=== PATIENT | female | born 1965 | race Caucasian/White ===

== ENCOUNTER 2022-11-18 07:02 | Outpatient (OUT) | payer OTHER, SELFPAY ==
[2022-11-19 04:12] LABS: Triiodothyronine (T3) 134 ng/dL (71-180)
== END 2022-11-18 07:03 ==
LOC: LAB 07:06
PROVIDERS: PCP Nurse Practitioner
DX: C73 Malignant neoplasm of thyroid gland (principal)
CPT/HCPCS: 36415; 84436; 84443; 84480

== ENCOUNTER 2023-02-24 16:16 | Outpatient (OUT) | payer OTHER, SELFPAY ==
[2023-02-24 17:31] LABS: Creatinine Urine Random 343.27 mg/dL (20.00-300.00); Microalbum Creatinine Ratio Ur 18.3 mg/g (0.0-29.9); Microalbumin Urine Random 6.3 mg/dL (<=30.0)
[2023-02-24 17:34] LABS: Albumin Level 3.4 g/dL (3.4-5.0); Anion Gap 10.6; BUN Creatinine Ratio 14.6; Calcium 9.5 mg/dL (8.5-10.1); Carbon Dioxide 30.6 mmol/L (21.0-32.0); Chloride 98 mmol/L (98-107); Chol HDL Ratio 2.5; Cholesterol 179 mg/dL (<=200); Estimated GFR (African America >60 (>=60); Estimated GFR (Non-African Ame >60 (>=60); Glucose 291 mg/dL (74-106); HDL Cholesterol 71 mg/dL (40-60); Phosphorus 4.4 mg/dL (2.6-4.7); Potassium 4.2 mmol/L (3.5-5.1); Sodium 135 mmol/L (136-145); Triglycerides 112 mg/dL (<=150); VLDL CHOLESTEROL 22.4 mg/dL
[2023-02-26 16:13] LABS: C-Peptide, Serum 3.4 ng/mL (1.1-4.4)
== END 2023-02-24 16:17 | disposition home or self-care (01) ==
LOC: LAB 16:19
PROVIDERS: PCP Nurse Practitioner; Visit Provider Internal Medicine
DX: E11.65 Type 2 diabetes mellitus 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 (principal); Z79.4 Long term (current) use of insulin; E55.9 Vitamin D deficiency, unspecified; E78.2 Mixed hyperlipidemia
CPT/HCPCS: 36415; 80061; 80069; 82043; 82306; 82570; 84681

== ENCOUNTER 2023-03-23 16:59 | Outpatient (OUT) | payer OTHER, SELFPAY ==
[2023-03-23 17:43] LABS: Thyroid Stimulating Hormone 3.332 uIU/mL (0.358-3.740)
== END 2023-03-23 17:00 | disposition home or self-care (01) ==
LOC: LAB 17:00
PROVIDERS: PCP Nurse Practitioner; Visit Provider Radiology Radiation Oncology
DX: C73 Malignant neoplasm of thyroid gland (principal)
CPT/HCPCS: 36415; 84436; 84443

== ENCOUNTER 2023-04-29 14:13 | Outpatient (OUT) | payer OTHER, SELFPAY ==
--- NOTE | 2023-04-29 14:15 | MM_ITS ---
Patient Name: DEMETRA HUTCHINS MR#: [id number] : 1965 Exam Date: 04/29/2023 Ordering Doctor: TARIK Colbert CNP RADIOLOGY REPORT PROCEDURE: MM TOMOSYNTHESIS SCREENING BI COMPARISON: MG MAMM SCREEN 3D FRANCI CAD, 04/27/2022. MG MAMM SCREEN 3D FRANCI CAD, 11/28/2020. MG MAMM SCREEN FRANCI W CAD, 10/25/2019. MG MAMM FRANCI DIAG W CAD DIG, 03/15/2013. INDICATIONS: Screening Calculator Name NCI Breast Cancer Risk Assessment Tool 5 Year Breast Cancer Risk 1.50% Lifetime Breast Cancer Risk 9.70% Personal Breast Cancer No Personal Ovarian Cancer No Treatments None Family Cancers Grandmother-paternal with breast cancer at age ~50; Mother with uterine cancer at age 26. LOCATION: [facility] BREAST COMPOSITION: Scattered areas fibroglandular density. FINDINGS: DIAGNOSTIC CATEGORY 2--BENIGN FINDING: RIGHT BREAST: No significant suspicious finding. No significant change has occurred. LEFT BREAST: No significant suspicious finding. Chronic, stable benign-appearing lymph node within posterior upper-outer quadrant. No significant change has occurred. RECOMMENDATIONS: ROUTINE MAMMOGRAM AND CLINICAL EVALUATION IN 12 MONTHS. PLEASE NOTE: A NORMAL MAMMOGRAM DOES NOT EXCLUDE THE POSSIBILITY OF BREAST CANCER. A CLINICALLY SUSPICIOUS PALPABLE LUMP SHOULD BE BIOPSIED. Dictated by: Matias Edwarsd M.D. on 05/04/2023 at 12:05 Approved by: Matias Edwards M.D. on 05/04/2023 at 12:55
== END 2023-04-29 14:14 | disposition home or self-care (01) ==
LOC: MAMMO 14:13
PROVIDERS: PCP Nurse Practitioner; Visit Provider Nurse Practitioner
DX: Z12.31 Encounter for screening mammogram for malignant neoplasm of breast (principal); Z80.3 Family history of malignant neoplasm of breast; Z80.8 Family history of malignant neoplasm of other organs or systems; Z80.9 Family history of malignant neoplasm, unspecified
CPT/HCPCS: 77063; 77067

== ENCOUNTER 2023-07-28 16:49 | Outpatient (OUT) | payer OTHER, SELFPAY ==
--- OUTSIDE RECORDS SUMMARY | 2023-07-28 16:56 | XMS_ITS | CCD ---
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 Name Role Phone Katalina Colbert Primary Care Provider [phone] Aicchey MONTANEZ, Katalina Jo Primary Care Provider Zion Nugent MD Unavailable Aicholgerson MONTANEZ, Katalina Jo Primary Care Provider Zion Nugent MD Unavailable Aichholz DIGITAL DIRECTOR, Katalina Jo Primary Care Provider Aicholgerson MONTANEZ, Katalina Jo Primary Care Provider Zion Nugent MD Unavailable [phone] DR WILLY NUGENT Consulting Unavailable AICHHOLZ, DIGITAL DIRECTOR KATALINA Primary Care Unavailable DR WILLY NUGENT Attending Unavailable DR WILLY NUGENT Admitting Unavailable KAYLA YAN Consulting Unavailable HELEN, DR GEN Donovan Attending Unavailabl e DR GEN CERVANTES Admitting Unavailabl e AICHHOLZ, DIGITAL DIRECTOR KATALINA Primary Care Unavailable Deonna Espino Consulting Unavailable YULIYA NICHOLS Consulting Unavailable AICHHOLZ, DIGITAL DIRECTOR KATALINA Consulting Unavailable AICHHOLZ, DIGITAL DIRECTOR KATALINA Primary Care Unavailable AICHHOLZ, DIGITAL DIRECTOR KATALINA Attending Unavailable AICHHOLZ, DIGITAL DIRECTOR KATALINA Admitting Unavailable AICHHOLZ, DIGITAL DIRECTOR KATALINA Consulting Unavailable AICHHOLZ, DIGITAL DIRECTOR KATALINA Primary Care Unavailable AICHHOLZ, DIGITAL DIRECTOR KATALINA Attending Unavailable AICHHOLZ, DIGITAL DIRECTOR KATALINA Admitting Unavailable AICHHOLZ, DIGITAL DIRECTOR KATALINA Consulting Unavailable AICHHOLZ, DIGITAL DIRECTOR KATALINA Primary Care Unavailable AICHHOLZ, DIGITAL DIRECTOR KATALINA Attending Unavailable AICHHOLZ, DIGITAL DIRECTOR KATALINA Admitting Unavailable DR MATIAS EDWARDS Consulting Unavailable ENGELER, DR WILLY Marlow Consulting Unavailable AICHHOLZ, DIGITAL DIRECTOR KATALINA Primary Care Unavailable PINO, DR WILLY Marlow Attending Unavailable ENGELEAnahi, DR WILLY Marlow Admitting Unavailable AICHHOLZ, DIGITAL DIRECTOR KATALINA Consulting Unavailable AICHHOLZ, DIGITAL DIRECTOR KATALINA Attending Unavailable AICHHOLZ, DIGITAL DIRECTOR KATALINA Admitting Unavailable ENGELEAnahi, DR WILLY Marlow Consulting Unavailable AICHHOLZ, DIGITAL DIRECTOR KATALINA Primary Care Unavailable ENGELEAnahi, DR WILLY Marlow Attending Unavailable ENGELER, DR WILLY Marlow Admitting Unavailable AICHHOLZ, DIGITAL DIRECTOR KATALINA Consulting Unavailable AICHHOLZ, DIGITAL DIRECTOR KATALINA Primary Care Unavailable AICHHOLZ, DIGITAL DIRECTOR KATALINA Attending Unavailable AICHHOLZ, DIGITAL DIRECTOR KATALINA Admitting Unavailable AICHHOLZ, DIGITAL DIRECTOR KATALINA Consulting Unavailable AICHHOLZ, DIGITAL DIRECTOR KATALINA Primary Care Unavailable AICHHOLZ, DIGITAL DIRECTOR KATALINA Attending Unavailable AICHHOLZ, DIGITAL DIRECTOR KATALINA Admitting Unavailable ENGELER, G AKUA Referring Unavailable ENGELER, G AKUA Attending Unavailable AICHHOLZ, KATALINA NHAN Primary Care Unavailable ENGELER, G AKUA Attending Unavailable AICHHOLZ, KATALINA NHAN Primary Care Unavailable ENGELER, G AKUA Attending Unavailable AICHHOLZ, KATALINA NHAN Primary Care Unavailable ENGELER, G AKUA Referring Unavailable ENGELER, G AKUA Attending Unavailable AICHHOLZ, KATALINA NHAN Primary Care Unavailable ENGELER, G AKUA Referring Unavailable ENGELER, G AKUA Attending Unavailable AICHHOLZ, KATALINA NHAN Primary Care Unavailable AICHHOLZ, KATALINA Attending Unavailable Aichholz SWITCH OPERATOR, Katalina Unavailable Kervin Stevens MD Primary Care Provider [phone] Allergies Allergy Classification Reported Allergen(s) Allergy Type Date of Onset Reaction(s) Facility (20 sources) Adhesive agent; Translations: [ADHESIVE] Drug Allergy 05-11-2012 Rash [facility] (1 source) Desonide Drug Allergy [facility] (1 source) Latex Drug allergy (disorder) [facility] Medications Current Medications Medication Drug Class(es) Dates Sig (Normalized) Sig (Original) amoxicillin 875 mg / clavulanate 125 mg oral tablet (1 source) Penicillin-class Antibacterial Start: 07-07-2023 End: 07-17-2023 take 1 tablet by mouth in the morning amoxicillin-clav ulanate (Augmentin) 875-125 MG tablet Indications: Acute non-recurrent sinusitis of other sinus Take 1 tablet (875 mg) by mouth in the morning and 1 tablet (875 mg) before bedtime. Do all this for 10 days. Take with food. 20 tablet 0 07/07/2023 07/17/2023 Active aspirin 81 mg delayed release oral tablet (20 sources) Platelet Aggregation Inhibitor, Nonsteroidal Anti-inflammatory Drug take 1 tablet by mouth in the morning aspirin (ASPIR) 81 MG EC tablet Take 1 tablet by mouth in the morning. 0 Active take 1 tablet by mouth once nano y aspirin (BABY ASPIRIN) 81 mg chewable tablet Take 81 mg by mouth once daily. 0 Active Comment on above: Take 81 mg by mouth once daily. cetirizine hydrochloride 10 mg oral tablet (20 sources) Histamine-1 Receptor Antagonist Start: 4 End: 4 take 1 tablet by mouth in the morning cetirizine (ZyrTEC) 10 MG tablet Indications: Allergic rhinitis, unspecified seasonality, unspecified trigger Take 1 tablet (10 mg) by mouth in the morning. 90 tablet 1 07/04/2023 10/02/2023 Active take 1 tablet by mouth once nano y cetirizine (ALLER-MELIZA) 10 mg tablet Take 10 mg by mouth once daily. 0 Active Comment on above: Take 10 mg by mouth once daily. cholecalciferol 0.025 mg oral capsule (20 sources) Vitamin D take 1 capsule by mouth in the morning cholecalciferol (Vitamin D-3) 25 MCG (1000 UT) capsule Take 1 capsule by mouth in the morning. 0 Active take 1 tablet by mouth once nano y Cholecalciferol, Vitamin D3, (VITAMIN D) 1,000 unit Tab Take 1,000 Units by mouth once daily. 0 Active Comment on above: Take 1,000 Units by mouth once daily. DULoxetine 60 mg delayed release oral capsule (20 sources) Serotonin and Norepinephrine Reuptake Inhibitor Start: 3 take 1 capsule by mouth in the morning DULoxetine (Cymbalta) [address] capsule Take 1 capsule by mouth in the morning. 0 05/03/2023 Active Start: 09-13-2020 DULoxetine (CY MBALTA) 30 mg capsule take [address] [facility] once daily DULoxetine 60 mg capsule Take 60 mg by mouth once daily. 0 Active Comment on above: Take 60 mg by mouth once daily. fluticasone propionate 0.05 mg/actuat metered dose nasal spray (1 source) Corticosteroid Start : 07-30 take 2 spray(s) nasal route in the morning fluticasone (Flonase) 50 MCG/ACT nasal spray Administer 2 sprays into each nostril in the morning. 0 07/30/2022 Active hydroCHLOROthiazide 12.5 mg oral capsule (20 sources) Thiazide Diuretic Start : 06-12 End: 09-09 take 1 capsule by mouth in the morning hydroCHLOROthiazide (Microzide) 12.5 MG capsule Indications: Essential hypertension (CMS/HCC) , Bilateral lower extremity edema Take 1 capsule (12.5 mg) by mouth in the morning. 90 capsule 1 06/12/2023 09/10/2023 Active hydroCHLOROthiaz mando (HYDRODIURIL, ESIDRIX) 12.5 mg tablet q 24 HR. 0 Active take 1 tablet by mouth once nano y hydrochlorothiazide 12.5 mg tablet Take 12.5 mg by mouth once daily. 0 Active Comment on above: Take 12.5 mg by mout h once daily. q 24 HR. ibuprofen 800 mg oral tablet (16 sources) Nonsteroidal Anti-inflammatory Drug take 1 tablet by mouth twice daily as needed ibuprofen 800 MG tablet Take 1 tablet by mouth 2 (two) times a day as needed 0 Active take 1 tablet by lukas every six hours as needed ibuprofen (MOTRIN) 200 mg tablet Take 20 0 mg by mouth every 6 hours as needed. 0 Active Comment on above: Take 200 mg by mouth every 6 hours as needed. 3 ml insulin lispro 100 unt/ml pen injector (1 source) Insulin Analog Start: insulin lispro (HumaLOG) 100 UNIT/ML injection Inject 1 Units under the skin in the morning and 1 Units at noon and 1 Units in the evening. Inject with meals. INJECT 15-20-25 UNITS ACCORDING TO MEAL SIZE PLUS ISS #3 (MAX DAILY DOSE OF 100 UNITS) . 0 04/03/2023 Active levothyroxine sodium 0.2 mg oral tablet (20 sources) l-Thyroxine Start: 3 End: take 1 tablet by mouth before mealtime levothyroxine (Synthroid, Levoxyl) 200 MCG tablet Take 1 tablet by mouth in the morning. Take before meals. 0 05/04/2023 Active Start: 07-01-2021 End: 11-23-2022 take 1 tablet by mouth once daily before breakfast levothyroxine (SYNTHROID) 175 mcg tablet Take 1 tablet by mouth daily before breakfast. 30 tablet 4 06/10/2022 11/23/2022 Discontinued (Course of therapy completed) Start: 04-09-2021 End: 10-16-2021 take 1 tablet by mouth once daily levothyroxine (SYNTHROID) 150 mcg tablet Take 1 tablet by mouth once daily. 30 tablet 4 04/09/2021 10/16/2021 Discontinued Comment on above: Take 1 tablet by lukas th daily before breakfast. Take 1 tablet by lukas th once daily. losartan potassium 100 mg oral tablet (16 sources) Angiotensin 2 Receptor Janell Start: 04-11-2023 take 1 tablet by mouth in the morning losartan (Cozaar) 100 MG tablet Take 1 tablet by mouth in the morning. 0 04/11/2023 Active Start: 05-01-2018 losartan (COZA AR) 50 mg tablet q 24 HR. 0 05/01/2018 Active Comment on above: q 24 HR. metFORMIN hydrochloride 1000 mg oral tablet (16 sources) Biguanide Start: 06-12-2023 End: 09-10-2023 take 1 tablet by mouth in the morning metFORMIN (Glucophage) 1000 MG tablet Indications: Uncontrolled type 2 diabetes mellitus 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, with long-term current use of insulin ([facility]) Take 1 tablet (1,000 mg) by mouth in the morning and 1 tablet (1,000 mg) before bedtime. 180 tablet 1 06/12/2023 09/10/2023 Active Start: 05-01-2018 take 1 tablet by lukas th twice daily metFORMIN (GLUCOPHAGE) 1,000 mg tablet metformin 1,000 mg tablet Take 1 tablet twice a day by oral route for 90 days. 0 05/01/2018 Active Comment on above: metformin 1,000 mg t ablet Take 1 tablet twice a day by oral route for 90 days. Mounjaro 5 MG/0.5ML solution pen-injector (1 source) Start: 05-04-2023 Mounjaro 5 MG/0.5ML solution pen-injector Inject 1 Syringe under the skin 1 (one) time per week 0 05/04/2023 Active tiZANidine 4 mg oral tablet (16 sources) Central alpha-2 Adrenergic Agonist Start: 05-06-2023 End: 08-04-2023 tiZANidine (Zanaflex) 4 MG tablet Indications: Chronic pain syndrome Take 1 tablet (4 mg) by mouth as needed at bedtime for muscle spasms. 90 tablet 1 05/06/2023 08/04/2023 Active Start: 09-14-2020 tiZANidine (ZA NAFLEX) 4 mg tablet Completed/Discontinued Medications Medication Drug Class(es) Dates Sig (Normalized) Sig (Original) acetaminophen 325 mg / HYDROcodone bitartrate 5 mg oral tablet (7 sources) Opioid Agonist Start: 12-12-2012 take 1 tablet by mouth every eight hours as needed HYDROcodone-acetam inophen 5-325 mg per tablet Take 1 tablet by mouth every 8 hours as needed for Pain. 40 tablet 0 12/12/2012 Active Comment on above: [facility] hours as needed for Pain. Doxycycline (7 sources) Tetracycline-cla ss Drug take 500 mg by mouth once daily DOXYCYCLINE HYCLATE ORAL Take 500 mg by mouth once daily. 0 Active Comment on above: Take 500 mg by mouth once daily. Ethinyl Estradiol / norgestimate (7 sources) Progestin, Estrogen Norgestimate-Ethin yl Estradiol (TRI-SPRINTEC) 0.18/0.215/0.25 mg-35 mcg (28) Tab Take by mouth. 0 Active Comment on above: Take by mouth. furosemide 20 mg oral tablet (7 sources) Loop Diuretic Start: 05-11-2012 take 3 tablets by mouth once daily furosemide (LASIX) 20 mg tablet Take 3 tablets by mouth once daily. 0 05/11/2012 Active Comment on above: Take [address] [facility] once daily. GLUCOSAMINE/CHONDROI TIN SULF A (GLUCOSAMINE-CHONDRO ITIN ORAL) (7 sources) GLUCOSAMINE/BRIDGER DR OITIN SULF A (GLUCOSAMINE-CHOND ROITIN ORAL) Take by mouth. 0 Active Comment on above: Take by mouth. 3 ml insulin glargine 100 unt/ml pen injector (16 sources) Insulin Analog Start: 05-01-2018 insulin glargine (LANTUS SOLOSTAR U-100 INSULIN) 100 unit/mL (3 mL) Lantus Solostar U-100 Insulin 100 unit/mL (3 mL) subcutaneous pen 0 05/01/2018 Active inject 1 [IU] by sub cutaneous injection in the morning Lantus SoloStar 100 UNIT/ML pen Inject 1 Units under the skin in the morning and 1 Units before bedtime. Inject 35 Units subcutaneous in AM and 50 Units in PM. 0 Active Comment on above: Lantus Solostar U-10 0 Insulin 100 unit/mL (3 mL) subcutaneous pen metFORMIN hydrochloride 1000 mg / SITagliptin 50 mg oral tablet (7 sources) Biguanide, Dipeptidyl Peptidase 4 Inhibitor Start: 05-11-20 12 take 1 tablet by mouth twice daily at mealtime sitaGLIPtin-metFORMI N (PATRICIAUMET) 50-1,000 mg per tablet Take 1 tablet by mouth twice daily with meals. 0 05/11/2012 Active Comment on above: Take 1 tablet by lukas th twice daily with meals. multivitamin tablet (20 sources) take 1 tablet by mouth once daily multivitamin tablet Take 1 tablet by mouth once daily. 0 Active Comment on above: Take 1 tablet by lukas th once daily. olmesartan medoxomil 20 mg oral tablet (7 sources) Angiotensin 2 Receptor Janell Start: 05-11-20 12 take 1 tablet by mouth once daily olmesartan (BENICAR) 20 mg tablet Take 1 tablet by mouth once daily. 0 05/11/2012 Active Comment on above: Take 1 tablet by lukas th once daily. Xcdpt-5-NDM-EPA-Fish Oil 1,200 (144-216) mg cap (7 sources) Ykuyl-0-FYD-EPA- Fish Oil 1,200 (144-216) mg cap Take by mouth. 0 Active Comment on above: Take by mouth. pilocarpine hydrochloride 5 mg oral tablet (3 sources) Cholinergic Receptor Agonist Start: 06-04-20 End: 02-13-20 22 take 1 tablet by mouth three times daily pilocarpine (SALAGEN) 5 mg tablet Indications: Thyroid cancer (HCC) , Malignant neoplasm of thyroid gland (HCC) Take 1 tablet by mouth three times daily. 15 tablet 0 06/04/2020 02/12/2022 Discontinued Comment on above: Take 1 tablet by lukas th three times daily. simvastatin 5 mg oral tablet (16 sources) HMG-CoA Reductase Inhibitor Start: 05-01-20 18 simvastatin (ZOCOR) 5 mg tablet q 24 HR. 0 05/01/2018 Active Comment on above: q 24 HR. Problems Active Problems Problem Classification Problem Date Documented Da te Episodic/Chronic Anxiety disorders (1 source) Mixed anxiety and depressive disorder; Translations: [Anxiety disorder, unspecified] Onset: 06-09-2023 06-09-2023 Chronic Cancer of thyroid (20 sources) Malignant tumor of thyroid gland; Translations: [Malignant neoplasm of thyroid gland] Onset: 06-04-2020 Chronic Cancer of thyroid (2 sources) History of malignant neoplasm of thyroid; Translations: [Personal history of malignant neoplasm of thyroid] Onset: 03-24-2023 03-24-2023 Episodic Cancer; other and unspecified primary (1 source) Malignant tumor of thymus; Translations: [Malignant neoplasm of thymus] Chronic Diabetes mellitus with complications (5 sources) Type 2 diabetes mellitus 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; Translations: [Insulin treated type 2 diabetes mellitus] Onset: 01-29-2022 Chronic Diabetes mellitus without complication (5 sources) Type 2 diabetes mellitus without complications; Translations: [TYPE 2 DM WITHOUT COMPLICATIONS] Onset: 06-22-2022 Chronic Essential hypertension (1 source) Essential hypertension; Translations: [Essential (primary) hypertension] Onset: 06-09-2023 06-09-2023 Chronic Other nutritional; endocrine; and metabolic disorders (4 sources) Hypercalcemia; Translations: [HYPERCALCEMIA] Onset: 02-18-2022 Chronic Other nutritional; endocrine; and metabolic disorders (1 source) Body mass index 40+ - severely obese; Translations: [Body mass index (BMI) 45.0-49.9, adult] Onset: 06-09-2023 06-09-2023 Chronic Other upper respiratory disease (1 source) Allergic rhinitis; Translations: [Allergic rhinitis, unspecified] Onset: 07-04-2023 07-04-2023 Chronic Other upper respiratory infections (6 sources) Acute pharyngitis, unspecified; Translations: [Streptococcal pharyngitis] Onset: 06-20-2022 Episodic Residual codes; unclassified (1 source) Bilateral lower limb edema; Translations: [Localized edema] Onset: 06-12-2023 06-12-2023 Episodic Substance-related disorders (1 source) Nicotine dependence, cigarettes, uncomplicated; Translations: [NICOTINE DEPEND CIGARETTES UNCOMP] Onset: 06-22-2022 Chronic Unclassified (3 sources) CONTACT W/AND (SUSP) EXPOS COVID-19; Translations: [CONTACT W/AND (SUSP) EXPOS COVID-19] Onset: 02-04-2022 Past or Other Problems Problem Classification Problem Date Documented Da te Episodic/Chronic Other aftercare (1 source) [employer] (current) use of aspirin; Translations: [DETENTION CURRENT USE OF ASPIRIN] Onset: 06-22-2022 Episodic Other aftercare (1 source) 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; Translations: [OTH EDGER MACHINE HELPER CURRENT DRUG THERAPY] Onset: 06-22-2022 Episodic Other aftercare (1 source) [employer] (current) use of oral hypoglycemic drugs; Translations: [DETENTION USE ORAL HYPOGLYCEMIC DX] Onset: 06-22-2022 Episodic Other aftercare (1 source) 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; Translations: [EDGER MACHINE HELPER CURRENT USE OF INSULIN] Onset: 06-01-2022 Episodic Other connective tissue disease (20 sources) Biceps tendinitis; Translations: [Bicipital tendinitis, unspecified shoulder] Onset: 11-23-2012 11-23-2012 Episodic Other screening for suspected conditions (not mental disorders or infectious disease) (4 sources) Encounter for screening mammogram for malignant neoplasm of breast; Translations: [ENC SCR MAMMO MALIG NEOPLASM BREAST] Onset: 04-27-2022 Episodic Residual codes; unclassified (1 source) Acquired absence of other specified parts of digestive tract; Translations: [ACQ ABSENCE OTH PART DIGESTV TRACT] Onset: 06-22-2022 Episodic Residual codes; unclassified (1 source) Family history of malignant neoplasm of breast; Translations: [FAMILY HX MALIG NEOPLASM OF BREAST] Onset: 05-01-2022 Episodic Residual codes; unclassified (1 source) Family history of malignant neoplasm of other organs or systems; Translations: [FAM HX MALIG NEOPLASM OTH ORGN/SYS] Onset: 05-01-2022 Episodic Spondylosis; intervertebral disc disorders; other back problems (20 sources) Neck pain; Translations: [Cervicalgia] Onset: 08-07-2012 08-07-2012 Episodic Sprains and strains (20 sources) Sprain of shoulder rotator cuff; Translations: [Sprain of unspecified rotator cuff capsule, initial encounter] Onset: 08-07-2012 08-07-2012 Episodic Unclassified (1 source) CONTACT W/AND (SUSP) EXPOS COVID-19; Translations: [CONTACT W/AND (SUSP) EXPOS COVID-19] Onset: 02-03-2022 Results Test Name Value Interpretation Reference Range Facility [facility] 03-24-2023 CNPN Telephone (NCCAP) KATALINA HUTCHINS ([id number]) 1965 F Date Time Provider Department 03/24/23 Zion NUGENT During your visit today, we recorded the following information about you: Amanda Hammonds 03/24/2023 3:26 PM Signed Mailed patient her lab tests she gets elsewere and scheudled appt for her Zion Nugent MD [facility] Nurse [place]; Amanda Hammonds See patient back or televisit 4 months with labs Allergies As of Date: 03/24/2023 Noted Allergy Reaction ADHESIVE 05/11/2012 2 - Rash Date Reviewed: 09/16/2020 Reviewed by: Kaitlynn Carreon (Gagandeep), RN - Fully Assessed Reason for Visit: Appointment Confirmation [[id number]] Prescriptions as of 03/25/2023 - levothyroxine (SYNTHROID) 200 mcg tablet Take 1 tablet by mouth once daily. - DULoxetine (CYMBALTA) 30 mg capsule - tiZANidine (ZANAFLEX) 4 mg tablet - hydroCHLOROthiazide (HYDRODIURIL, ESIDRIX) 12.5 mg tablet q 24 HR. - ibuprofen (MOTRIN) 200 mg tablet Take 200 mg by mouth every 6 hours as needed. - metFORMIN (GLUCOPHAGE) 1,000 mg tablet metformin 1,000 mg tablet Take 1 tablet twice a day by oral route for 90 days. - insulin glargine (LANTUS SOLOSTAR U-100 INSULIN) 100 unit/mL (3 mL) Lantus Solostar U-100 Insulin 100 unit/mL (3 mL) subcutaneous pen - losartan (COZAAR) 50 mg tablet q 24 HR. - simvastatin (ZOCOR) 5 mg tablet q 24 HR. - Cholecalciferol, Vitamin D3, (VITAMIN D) 1,000 unit Tab Take 1,000 Units by mouth once daily. - aspirin (BABY ASPIRIN) 81 mg chewable tablet Take 81 mg by mouth once daily. - cetirizine (ALLER-MELIZA) 10 mg tablet Take 10 mg by mouth once daily. - multivitamin tablet Take 1 tablet by mouth once daily. Facility-Administered Medications as of 03/25/2023 - NaCl 0.9% iv infusion - diphenhydrAMINE 50 mg injection (BENADRYL) - hydrocortisone sodium succinate 100 mg injection (Solu-CORTEF) - EPINEPHrine 1 mg/mL (1 mL) 0.3 mg injection - sodium chloride 0.9 % (flush) 10-20 mL (BD POSIFLUSH) - heparin 100 unit/mL 500 Units injection - sodium chloride 0.9 % (flush) 10-20 mL (BD POSIFLUSH) Problem List As Of Date 03/24/2023 Noted Resolved Rotator cuff (capsule) sprain [S43.429A] 08/07/2012 Cervicalgia [M54.2] 08/07/2012 Bicipital tendinitis [M75.20] 11/23/2012 Thyroid cancer (HCC) [C73] 06/04/2020 Encounter Status:Closed by AMANDA HAMMONDS on 03/25/23 [facility] 11-18-2022 GILDA Telephone ([employer]) KATALINA HUTCHINS ([id number]) 1965 F Date Time Provider Department 11/18/22 Zion NUGENT During your visit today, we recorded the following information about you: Jose Harris RN 11/18/2022 1:46 PM Signed Call placed to pt due to not having labs prior to phone visit with Dr Nugent. LM requesting she CB to reschedule after she Is able to have labs. Jose Harris RN Allergies As of Date: 11/18/2022 Noted Allergy Reaction ADHESIVE 05/11/2012 2 - Rash Date Reviewed: 09/16/2020 Reviewed by: Kaitlynn (Gagandeep) SHAYLA Carreon - Fully Assessed Reason for Visit: Future Appointment [[id number]] Prescriptions as of 11/24/2022 - levothyroxine (SYNTHROID) 200 mcg tablet Take 1 tablet by mouth once daily. - DULoxetine (CYMBALTA) 30 mg capsule - tiZANidine (ZANAFLEX) 4 mg tablet - hydroCHLOROthiazide (HYDRODIURIL, ESIDRIX) 12.5 mg tablet q 24 HR. - ibuprofen (MOTRIN) 200 mg tablet Take 200 mg by mouth every 6 hours as needed. - metFORMIN (GLUCOPHAGE) 1,000 mg tablet metformin 1,000 mg tablet Take 1 tablet twice a day by oral route for 90 days. - insulin glargine (LANTUS SOLOSTAR U-100 INSULIN) 100 unit/mL (3 mL) Lantus Solostar U-100 Insulin 100 unit/mL (3 mL) subcutaneous pen - losartan (COZAAR) 50 mg tablet q 24 HR. - simvastatin (ZOCOR) 5 mg tablet q 24 HR. - Cholecalciferol, Vitamin D3, (VITAMIN D) 1,000 unit Tab Take 1,000 Units by mouth once daily. - aspirin (BABY ASPIRIN) 81 mg chewable tablet Take 81 mg by mouth once daily. - cetirizine (ALLER-MELIZA) 10 mg tablet Take 10 mg by mouth once daily. - multivitamin tablet Take 1 tablet by mouth once daily. Facility-Administered Medications as of 11/24/2022 - NaCl 0.9% iv infusion - diphenhydrAMINE 50 mg injection (BENADRYL) - hydrocortisone sodium succinate 100 mg injection (Solu-CORTEF) - EPINEPHrine 1 mg/mL (1 mL) 0.3 mg injection - sodium chloride 0.9 % (flush) 10-20 mL (BD POSIFLUSH) - heparin 100 unit/mL 500 Units injection - sodium chloride 0.9 % (flush) 10-20 mL (BD POSIFLUSH) Problem List As Of Date 11/18/2022 Noted Resolved Rotator cuff (capsule) sprain [S43.429A] 08/07/2012 Cervicalgia [M54.2] 08/07/2012 Bicipital tendinitis [M75.20] 11/23/2012 Thyroid cancer (HCC) [C73] 06/04/2020 Encounter Status:Closed by JOSE HARRIS on 11/24/22 Normal [facility] CBC AUTO DIFFon 10-12-2022 BASO # 0.1 103/ul Normal 0.0-0.1 [facility] Comment on above: Performed By: #### C BC #### [facility] [address] [place] [address] Dr. Karena Montero Basophils/100 WBC (Bld) 0.8 % Normal 0.2-2.0 [facility] Comment on above: Performed By: #### C BC #### [facility] [address] [place] [address] Dr. Karena Montero EO # 0.2 103/ul Normal 0.0-0.7 [facility] Comment on above: Performed By: #### C BC #### [facility] [address] [place] [address] Dr. Karena Montero Eosinophils/100 WBC (Bld) 2.5 % Normal 0.9-7.0 [facility] Comment on above: Performed By: #### C BC #### [facility] [address] [place] [address] Dr. Karena Montero Erythrocyte distribution width (RBC) [Ratio] 14.5 % Normal 11.0-15.0 [facility] Comment on above: Performed By: #### C BC #### [facility] Laboratory [address] [place] [address] Dr. Karena Montero Hematocrit (Bld) [Volume fraction] 42.9 % Normal 36.0-48.0 [facility] Comment on above: Performed By: #### C BC #### [facility] [address] [place] [address] Dr. Karena Montero Hemoglobin (Bld) [Mass/Vol] 14.3 g/dL Normal 12.0-16.0 [facility] Comment on above: Performed By: #### C BC #### [facility] [address] [place] [address] Dr. Karena Montero IG # 0.02 10e3/ul Normal 0.00-0.03 [facility] Comment on above: Performed By: #### C BC #### [facility] [address] [place] [address] Dr. Karena Montero IG % 0.3 % Normal 0.0-0.5 [facility] Comment on above: Performed By: #### C BC #### [facility] [address] [place] [address] Dr. Karena Montero LYMPH # 1.6 103/ul Normal 1.2-3.8 [facility] Comment on above: Performed By: #### C BC #### [facility] [address] [place] [address] Dr. Karena Montero Lymphocytes/100 WBC (Bld) 27.2 % Normal 20.5-60.0 [facility] Comment on above: Performed By: #### C BC #### [facility] [address] [place] [address] Dr. Karena Montero MANUAL DIFF REQ NO Normal [facility] Comment on above: Performed By: #### C BC #### [facility] [address] [place] [address] Dr. Karena Montero MCH (RBC) [Entitic mass] 28.9 pg Normal 26.7-34.0 [facility] Comment on above: Performed By: #### C BC #### [facility] [address] [place] [address] Dr. Karena Montero MCHC (RBC) [Mass/Vol] 33.3 g/dL Normal 29.9-35.2 [facility] Comment on above: Performed By: #### C BC #### [facility] [address] [address] [address] Karena Montero MCV (RBC) [Entitic vol] 86.8 fL Normal 81.0-99.0 [facility] Comment on above: Performed By: #### C BC #### [facility] [address] [address] [address] Karena Montero MONO # 0.5 103/ul Normal 0.3-0.8 [facility] Comment on above: Performed By: #### C BC #### [facility] [address] [address] [address] Karena Montero Monocytes/100 WBC (Bld) 8.5 % Normal 1.7-12.0 [facility] Comment on above: Performed By: #### C BC #### [facility] [address] [place] [address] Dr. Karena Montero NEUT # 3.7 103/ul Normal 1.4-6.5 [facility] Comment on above: Performed By: #### C BC #### [facility] [address] [address] [address] Karena Montero Neutrophils/100 WBC (Bld) 60.7 % Normal 43.0-75.0 [facility] Comment on above: Performed By: #### C BC #### [facility] [address] [address] [address] Karean Montero Platelet mean volume (Bld) [Entitic vol] 10.2 fL Normal 9.5-13.5 [facility] Comment on above: Performed By: #### C BC #### [facility] [address] [address] [address] Karena Montero PLT 214 103/ul Normal 150-450 [facility] Comment on above: Performed By: #### C BC #### [facility] [address] [address] [address] Karena Montero RBC 4.94 106/ul Normal 4.20-5.40 [facility] Comment on above: Performed By: #### C BC #### [facility] [address] [address] [address] Karena Montero WBC 6.0 103/ul Normal 4.0-11.0 [facility] Comment on above: Performed By: #### C BC #### [facility] [address] [address] [address] Karena Montero GLYCOHEMOGLOBIN A1Con 2022 ADA RECOMMENDATION SEE BELOW Normal [facility] Comment on above: Result Comment: ADA RECOMMENDED LIMIT 4.0 - 6.0 ADA THERAPEUTIC TARGET < 7.0 ACTION SUGGESTED > 7.0 Performed By: #### C BC #### [facility] [address] [place] [address] Dr. Karena Montero Glucose [Mass/Vol] 292 mg/dL Normal [facility] Comment on above: Performed By: #### C BC #### [facility] [address] [place] [address] Dr. Karena Montero HbA1c (Bld) [Mass fraction] 11.8 % Critically high 4.5-6.2 [facility] Comment on above: Performed By: #### C BC #### [facility] [address] [place] [address] Dr. Karena Montero LIPID PROFILEon 10-12-2022 CHOL-HDL RATIO NORM SEE BELOW Normal [facility] Comment on above: Result Comment: 3.3 - 4.4 LOW RISK 4.4 - 7.1 AVERAGE RISK 7.1 - 11.0 MODERATE RISK >11.0 HIGH RISK Performed By: #### C BC #### [facility] [address] [place] [address] Dr. Karena Montero Cholesterol [Mass/Vol] 199 mg/dL Normal <=200 [facility] Comment on above: Performed By: #### C BC #### [facility] [address] [place] [address] Dr. Karena Montero Cholesterol in HDL [Mass/Vol] 63 mg/dL Critically high 40-60 [facility] Comment on above: Performed By: #### C BC #### [facility] [address] [place] [address] Dr. Karena Montero Cholesterol in LDL [Mass/Vol] 119.8 mg/dL Normal [facility] Comment on above: Performed By: #### C BC #### [facility] [address] [address] [address] Karena Montero Cholesterol.total/Ch olesterol in HDL [Mass ratio] 3.2 {ratio} Normal [facility] Comment on above: Performed By: #### C BC #### [facility] [address] [address] [address] Karena Montero HDL NORMAL > or = 60 mg/dl - LO W CARDIOVASCULAR RISK <40 mg/dl - HIGH CARDIOVASCULAR RISK Normal [facility] Comment on above: Performed By: #### C BC #### [facility] [address] [place] [address] Dr. Karena Montero LDL CALC NORMAL SEE BELOW Normal [facility] Comment on above: Result Comment: <100 mg/dl OPTIMAL 100 - 129 mg/dl NEAR OR ABOVE OPTIMAL 130 - 159 mg/dl BORDERLINE HIGH 160 - 189 mg/dl HIGH >190 mg/dl VERY HIGH Performed By: #### C BC #### [facility] [address] [address] [address] Karena Montero Triglyceride [Mass/Vol] 81 mg/dL Normal <=150 [facility] Comment on above: Performed By: #### C BC #### [facility] [address] [place] [address] Dr. Karena Montero VLDL CALC 16.2 mg/dL Normal [facility] Comment on above: Performed By: #### C BC #### [facility] [address] [address] [address] Karena Montero MICROALBUMIN, RAND URon mALB 4.5 mg/L Normal <=30.0 [facility] Comment on above: Performed By: #### M ALBR #### [facility] [address] [place] [address] Dr. Karena Montero PROF 14(COMP METB)on 023 Albumin [Mass/Vol] 3.3 g/dL Critically low 3.4-5.0 [facility] Comment on above: Performed By: #### C BC #### [facility] [address] [address] [address] Karena Montero Albumin/Globulin [Mass ratio] 0.7 {ratio} Normal [facility] Comment on above: Performed By: #### C BC #### [facility] [address] [address] [address] Karena Montero ALP [Catalytic activity/Vol] 45 U/L Critically low 46-116 [facility] Comment on above: Performed By: #### C BC #### [facility] [address] [address] [address] Karena Montero ALT [Catalytic activity/Vol] 46 U/L Normal 14-59 [facility] Comment on above: Performed By: #### C BC #### [facility] [address] [place] [address] Dr. Karena Montero Anion gap [Moles/Vol] 12.5 mmol/L Normal [facility] Comment on above: Performed By: #### C BC #### [facility] [address] [place] [address] Dr. Karena Montero AST [Catalytic activity/Vol] 50 U/L Critically high 15-37 [facility] Comment on above: Performed By: #### C BC #### [facility] [address] [place] [address] Dr. Karena Montero Bilirubin [Mass/Vol] 0.9 mg/dL Normal 0.2-1.0 [facility] Comment on above: Performed By: #### C BC #### [facility] [address] [place] [address] Dr. Karena Montero Calcium [Mass/Vol] 9.5 mg/dL Normal 8.5-10.1 [facility] Comment on above: Performed By: #### C BC #### [facility] [address] [address] [address] Karena Montero Chloride [Moles/Vol] 102 mmol/L Normal 98-107 [facility] Comment on above: Performed By: #### C BC #### [facility] [address] [place] [address] Dr. Karena Montero CO2 [Moles/Vol] 29.4 mmol/L Normal 21.0-32.0 [facility] Comment on above: Performed By: #### C BC #### [facility] [address] [place] [address] Dr. Karena Montero Creatinine [Mass/Vol] 0.89 mg/dL Normal 0.55-1.02 [facility] Comment on above: Performed By: #### C BC #### [facility] [address] [place] [address] Dr. Karena Montero EGFR-AF MALAYSIAN >60 Normal >=60 [facility] Comment on above: Performed By: #### C BC #### [facility] [address] [place] [address] Dr. Karena Montero EGFR-NON AF MALAYSIAN >60 Normal >=60 [facility] Comment on above: Performed By: #### C BC #### [facility] [address] [place] [address] Dr. Karena Montero Globulin (S) [Mass/Vol] 4.6 g/dL Normal [facility] Comment on above: Performed By: #### C BC #### [facility] [address] [place] [address] Dr. Karena Montero Glucose [Mass/Vol] 163 mg/dL Critically high 74-106 [facility] Comment on above: Performed By: #### C BC #### [facility] [address] [place] [address] Dr. Karena Montero Potassium [Moles/Vol] 4.9 mmol/L Normal 3.5-5.1 [facility] Comment on above: Performed By: #### C BC #### [facility] [address] [place] [address] Dr. Karena Montero Protein [Mass/Vol] 7.9 g/dL Normal 6.4-8.2 [facility] Comment on above: Performed By: #### C BC #### [facility] [address] [place] [address] Dr. Karena Montero Sodium [Moles/Vol] 139 mmol/L Normal 136-145 [facility] Comment on above: Performed By: #### C BC #### [facility] [address] [place] [address] Dr. Karena Montero Urea nitrogen [Mass/Vol] 11.0 mg/dL Normal 7.0-18.0 [facility] Comment on above: Performed By: #### C BC #### [facility] [address] [place] [address] Dr. Karena Montero Urea nitrogen/Creatinine [Mass ratio] 12.4 mg/mg Normal [facility] Comment on above: Performed By: #### C BC #### [facility] [address] [place] [address] Dr. Karena Montero UA RANDOM W/MICROSCOPICon BACTERIA TRACE Abnormal NONE [facility] Comment on above: Performed By: #### M RUBY #### [facility] [address] [place] [address] Dr. Karena Montero Bilirubin Ql (U) Negative Normal NEGATIVE [facility] Comment on above: Performed By: #### M RUBY #### [facility] [address] [place] [address] Dr. Karena Montero CAST SEEN Abnormal NONE [facility] Comment on above: Performed By: #### M RUBY #### [facility] [address] [place] [address] Dr. Karena Montero Clarity (U) CLEAR Normal CLEAR [facility] Comment on above: Performed By: #### M RUBY #### [facility] [address] [place] [address] Dr. Karena Montero Color (U) YELLOW Normal YELLOW [facility] Comment on above: Performed By: #### M RUBY #### [facility] [address] [place] [address] Dr. Karena Montero Crystals LM Nom (Urine sed) NONE SEEN Normal NONE SEEN [facility] Comment on above: Performed By: #### M RUBY #### [facility] [address] [place] [address] Dr. Karena Montero Epithelial cells LM Ql (Urine sed) RARE Normal NONE SEEN /RARE [facility] Comment on above: Performed By: #### M RUBY #### [facility] [address] [place] [address] Dr. Karena Montero Glucose Ql (U) Negative Normal NEGATIVE [facility] Comment on above: Performed By: #### M RUBY #### [facility] [address] [place] [address] Dr. Karena Montero Hemoglobin Ql (U) Negative Normal NEGATIVE [facility] Comment on above: Performed By: #### M RUBY #### [facility] [address] [place] [address] Dr. Karena Montero HYALINE CAST RARE Normal [facility] Comment on above: Performed By: #### M RUBY #### [facility] [address] [place] [address] Dr. Karena Montero Ketones Ql (U) Negative Normal NEGATIVE [facility] Comment on above: Performed By: #### M RUBY #### [facility] [address] [place] [address] Dr. Karena Montero LEUKOCYTES SMALL Abnormal NEGATIVE [facility] Comment on above: Performed By: #### M RUBY #### [facility] [address] [place] [address] Dr. Karena Montero MUCOUS NONE SEEN Normal NONE SEEN [facility] Comment on above: Performed By: #### M RUBY #### [facility] [address] [place] [address] Dr. Karena Montero Nitrite Ql (U) Negative Normal NEGATIVE [facility] Comment on above: Performed By: #### M RUBY #### [facility] [address] [place] [address] Dr. Karena Montero pH (U) 5.0 [pH] Normal 5-9 [facility] Comment on above: Performed By: #### M RUBY #### [facility] [address] [place] [address] Dr. Karena Montero RBC 0-2 Normal 0-2 [facility] Comment on above: Performed By: #### M RUBY #### [facility] [address] [address] [address] Karena Montero SPEC GRAVITY >=1.030 Abnormal 1.005-<=1.025 [facility] Comment on above: Performed By: #### M RUBY #### [facility] [address] [address] [address] Karena Montero UA PROTEIN TRACE Normal NEGATIVE/ TRACE [facility] Comment on above: Performed By: #### M RUBY #### [facility] [address] [address] [address] Karena Montero Urobilinogen Qn (U) 4 {Emily'U}/dL Abnormal 0.2 - 1.0 [facility] Comment on above: Performed By: #### M RUBY #### [facility] [address] [place] [address] Dr. Karena Montero WBC 10-20 Abnormal NONE SEEN [facility] Comment on above: Performed By: #### M RUBY #### [facility] [address] [address] [address] Karena Montero T3, TOTAL (TRIIODOTHYRONINE) on 09-10-2022 T3, TOTAL 92 ng/dL Normal 71-180 [facility] Comment on above: Performed By: #### C BC #### [facility] [address] [place] [address] Dr. Karena Arzola 09-08-2022 GILDA Telephone (ROBERT) KATALINA HUTCHINS ([id number]) 1965 F Date Time Provider Department 09/08/22 [place] NUGENT During your visit today, we recorded the following information about you: Darlin Harris [facility] 09/08/2022 12:49 PM Signed Lab orders faxed to [facility] per patient request. Allergies As of Date: 09/08/2022 Noted Allergy Reaction ADHESIVE 05/11/2012 2 - Rash Date Reviewed: 09/16/2020 Reviewed by: Kaitlynn Carreon RN - Fully Assessed Reason for Visit: Orders faxed [Other] Prescriptions as of 09/08/2022 - levothyroxine (SYNTHROID) 175 mcg tablet Take 1 tablet by mouth daily before breakfast. - DULoxetine (CYMBALTA) 30 mg capsule - tiZANidine (ZANAFLEX) 4 mg tablet - hydroCHLOROthiazide (HYDRODIURIL, ESIDRIX) 12.5 mg tablet q 24 HR. - ibuprofen (MOTRIN) 200 mg tablet Take 200 mg by mouth every 6 hours as needed. - metFORMIN (GLUCOPHAGE) 1,000 mg tablet metformin 1,000 mg tablet Take 1 tablet twice a day by oral route for 90 days. - insulin glargine (LANTUS SOLOSTAR U-100 INSULIN) 100 unit/mL (3 mL) Lantus Solostar U-100 Insulin 100 unit/mL (3 mL) subcutaneous pen - losartan (COZAAR) 50 mg tablet q 24 HR. - simvastatin (ZOCOR) 5 mg tablet q 24 HR. - Cholecalciferol, Vitamin D3, (VITAMIN D) 1,000 unit Tab Take 1,000 Units by mouth once daily. - aspirin (BABY ASPIRIN) 81 mg chewable tablet Take 81 mg by mouth once daily. - cetirizine (ALLER-MELIZA) 10 mg tablet Take 10 mg by mouth once daily. - multivitamin tablet Take 1 tablet by mouth once daily. Facility-Administered Medications as of 09/08/2022 - NaCl 0.9% iv infusion - diphenhydrAMINE 50 mg injection (BENADRYL) - hydrocortisone sodium succinate 100 mg injection (Solu-CORTEF) - EPINEPHrine 1 mg/mL (1 mL) 0.3 mg injection - sodium chloride 0.9 % (flush) 10-20 mL (BD POSIFLUSH) - heparin 100 unit/mL 500 Units injection - sodium chloride 0.9 % (flush) 10-20 mL (BD POSIFLUSH) Problem List As Of Date 09/08/2022 Noted Resolved Rotator cuff (capsule) sprain [S43.429A] 08/07/2012 Cervicalgia [M54.2] 08/07/2012 Bicipital tendinitis [M75.20] 11/23/2012 Thyroid cancer (HCC) [C73] 06/04/2020 Encounter Status:Closed by GAIL NAVAS DARLIN Tamie on 09/08/22 Normal [facility] T4on 09-08-2022 T4 [Mass/Vol] 11.70 ug/dL Normal 4.80-13.90 [facility] Comment on above: Performed By: #### T 4, TSH #### [facility] [address] [place], [place] [address] Dr. Karena Montero TSHon 09-08-2022 TSH 10.637 uIU/mL Critically high 0.358-3.740 [facility] Comment on above: Performed By: #### T 4, TSH #### [facility] [address] [place], [place] [address] NECK ST W CONon CT NECK ST W CON EXAM TYPE: CT NECK S T W CON EXAM DATE AND TIME: 06/20/2022 7:03 PM EST INDICATION: 57 years old Female with COMPARISON: None. TECHNIQUE: CT imaging of the neck was obtained after intravenous administration of IV contrast material Dose reduction techniques were achieved by using automated exposure control and/or adjustment of mA and/or kV according to patient size and/or use of iterative reconstruction technique. FINDINGS: Diffusely enlarged and edematous appearance of the bilateral tonsils is seen, suggestive of bilateral tonsillitis. No obvious discrete abnormal fluid collection is seen on this examination. Mild resultant narrowing of the airway/oropharynx at the level of the tonsils is seen. Nasopharynx, hypopharynx, and larynx are normal in appearance. Visualized trachea and esophagus are unremarkable. Multiple mild enlarged bilateral cervical lymph nodes are seen measuring up to 12 mm in short axis. The parotid and submandibular glands are normal in appearance. Patient is post thyroidectomy. No abnormal enhancing mass is seen in the bilateral thyroid bed. There is normal enhancement in the major neck vessels. No suspicious lytic or blastic lesions in the visualized bones. Lung apices are clear. Visualized brain and orbits are unremarkable. IMPRESSION: Diffusely enlarged and edematous appearance of the bilateral tonsils is seen, suggestive of bilateral tonsillitis. No obvious discrete abnormal fluid collection is seen on this examination. Mild resultant narrowing of the airway/oropharynx at the level of the tonsils is seen. Electronically authenticated by: DEONNA ESPINO Date: 2022-06-20 22:08 Normal [facility] CBC AUTO DIFFon 06-20-2022 BASO # 0.1 103/ul Normal 0.0-0.1 [facility] Comment on above: Performed By: #### T 4, TSH #### [facility] [address] [place] [address] Dr. Karena Montero Basophils/100 WBC (Bld) 0.9 % Normal 0.2-2.0 [facility] Comment on above: Performed By: #### T 4, TSH #### [facility] [address] [place] [address] Dr. Karena Montero EO # 0.1 103/ul Normal 0.0-0.7 [facility] Comment on above: Performed By: #### T 4, TSH #### [facility] [address] [place] [address] Dr. Karena Montero Eosinophils/100 WBC (Bld) 0.5 % Critically low 0.9-7.0 [facility] Comment on above: Performed By: #### T 4, TSH #### [facility] [address] [place] [address] Dr. Karena Montero Erythrocyte distribution width (RBC) [Ratio] 13.8 % Normal 11.0-15.0 [facility] Comment on above: Performed By: #### T 4, TSH #### [facility] [address] [place] [address] Dr. Karena Montero Hematocrit (Bld) [Volume fraction] 39.7 % Normal 36.0-48.0 [facility] Comment on above: Performed By: #### T 4, TSH #### [facility] [address] [place] [address] Dr. Karena Montero Hemoglobin (Bld) [Mass/Vol] 13.7 g/dL Normal 12.0-16.0 [facility] Comment on above: Performed By: #### T 4, TSH #### [facility] [address] [address] [address] Karena Montero IG # 0.06 10e3/ul Critically high 0.00-0.03 [facility] Comment on above: Performed By: #### T 4, TSH #### [facility] [address] [address] [address] Karena Montero IG % 0.6 % Critically high 0.0-0.5 [facility] Comment on above: Performed By: #### T 4, TSH #### [facility] [address] [place] [address] Dr. Karena Montero LYMPH # 2.0 103/ul Normal 1.2-3.8 [facility] Comment on above: Performed By: #### T 4, TSH #### [facility] [address] [place] [address] Dr. Karena Montero Lymphocytes/100 WBC (Bld) 19.1 % Critically low 20.5-60.0 [facility] Comment on above: Performed By: #### T 4, TSH #### [facility] [address] [place] [address] Dr. Karena Montero MANUAL DIFF REQ NO Normal [facility] Comment on above: Performed By: #### T 4, TSH #### [facility] [address] [place] [address] Dr. Karena Montero MCH (RBC) [Entitic mass] 28.8 pg Normal 26.7-34.0 [facility] Comment on above: Performed By: #### T 4, TSH #### [facility] [address] [place] [address] Dr. Karena Montero MCHC (RBC) [Mass/Vol] 34.5 g/dL Normal 29.9-35.2 [facility] Comment on above: Performed By: #### T 4, TSH #### [facility] [address] [place] [address] Dr. Karena Montero MCV (RBC) [Entitic vol] 83.4 fL Normal 81.0-99.0 [facility] Comment on above: Performed By: #### T 4, TSH #### [facility] [address] [place] [address] Dr. Karena Montero MONO # 0.9 103/ul Critically high 0.3-0.8 [facility] Comment on above: Performed By: #### T 4, TSH #### [facility] [address] [place] [address] Dr. Karena Montero Monocytes/100 WBC (Bld) 8.2 % Normal 1.7-12.0 [facility] Comment on above: Performed By: #### T 4, TSH #### [facility] [address] [place] [address] Dr. Karena Montero NEUT # 7.5 103/ul Critically high 1.4-6.5 [facility] Comment on above: Performed By: #### T 4, TSH #### [facility] [address] [place] [address] Dr. Karena Montero Neutrophils/100 WBC (Bld) 70.7 % Normal 43.0-75.0 [facility] Comment on above: Performed By: #### T 4, TSH #### [facility] [address] [place] [address] Dr. Karena Montero Platelet mean volume (Bld) [Entitic vol] 10.5 fL Normal 9.5-13.5 [facility] Comment on above: Performed By: #### T 4, TSH #### [facility] [address] [place] [address] Dr. Karena Montero PLT 253 103/ul Normal 150-450 [facility] Comment on above: Performed By: #### T 4, TSH #### [facility] [address] [place] [address] Dr. Karena Montero RBC 4.76 106/ul Normal 4.20-5.40 [facility] Comment on above: Performed By: #### T 4, TSH #### [facility] [address] [place] [address] Dr. Karena Montero WBC 10.6 103/ul Normal 4.0-11.0 [facility] Comment on above: Performed By: #### T 4, TSH #### [facility] [address] [place] [address] Dr. Karena Montero CULTURE BLOODon 06-20-2022 Microscopic examination of blood, culture Culture Observations: NO GROWTH AT 5 DAYS. Normal [facility] Comment on above: Performed By: #### T 4, TSH #### [facility] [address] [place] [address] Dr. Karena Montero Microscopic examination of blood, culture Culture Observations: NO GROWTH AT 5 DAYS. Normal [facility] Comment on above: Performed By: #### T 4, TSH #### [facility] [address] [place] [address] Dr. Karena Montero LACTATE/LACTIC ACIDon 2022 Lactate [Moles/Vol] 1.5 mmol/L Normal 0.4-1.9 [facility] Comment on above: Performed By: #### T 4, TSH #### [facility] [address] [place] [address] Dr. Karena Montero MONOon 06-20-2022 Monocytes (Bld) [#/Vol] Negative Normal NEGATIVE [facility] Comment on above: Performed By: #### M RUBY #### [facility] [address] [place] [address] Dr. Karena Montero PROF 14(COMP METB)on 023 Albumin [Mass/Vol] 3.1 g/dL Critically low 3.4-5.0 [facility] Comment on above: Performed By: #### C MP #### [facility] [address] [place] [address] Dr. Karena Montero Albumin/Globulin [Mass ratio] 0.6 {ratio} Normal [facility] Comment on above: Performed By: #### C MP #### [facility] [address] [place] [address] Dr. Karena Montero ALP [Catalytic activity/Vol] 47 U/L Normal 46-116 [facility] Comment on above: Performed By: #### C MP #### [facility] [address] [place] [address] Dr. Karena Montero ALT [Catalytic activity/Vol] 20 U/L Normal 14-59 [facility] Comment on above: Performed By: #### C MP #### [facility] [address] [place] [address] Dr. Karena Montero Anion gap [Moles/Vol] 11.1 mmol/L Normal [facility] Comment on above: Performed By: #### C MP #### [facility] [address] [address] [address] Karena Montero AST [Catalytic activity/Vol] 24 U/L Normal 15-37 [facility] Comment on above: Performed By: #### C MP #### [facility] [address] [address] [address] Karena Montero Bilirubin [Mass/Vol] 1.5 mg/dL Critically high 0.2-1.0 [facility] Comment on above: Performed By: #### C MP #### [facility] [address] [place] [address] Dr. Karena Montero Calcium [Mass/Vol] 9.4 mg/dL Normal 8.5-10.1 [facility] Comment on above: Performed By: #### C MP #### [facility] [address] [place] [address] Dr. Karena Montero Chloride [Moles/Vol] 94 mmol/L Critically low 98-107 [facility] Comment on above: Performed By: #### C MP #### [facility] [address] [address] [address] Karena Montero CO2 [Moles/Vol] 27.9 mmol/L Normal 21.0-32.0 [facility] Comment on above: Performed By: #### C MP #### [facility] [address] [place] [address] Dr. Karena Montero Creatinine [Mass/Vol] 0.85 mg/dL Normal 0.55-1.02 [facility] Comment on above: Performed By: #### C MP #### [facility] [address] [place] [address] Dr. Karena Montero EGFR-AF MALAYSIAN >60 Normal >=60 [facility] Comment on above: Performed By: #### C MP #### [facility] [address] [address] [address] Karena Montero EGFR-NON AF MALAYSIAN >60 Normal >=60 [facility] Comment on above: Performed By: #### C MP #### [facility] [address] [address] [address] Karena Montero Globulin (S) [Mass/Vol] 5.3 g/dL Normal [facility] Comment on above: Performed By: #### C MP #### [facility] [address] [address] [address] Karena Montero Glucose [Mass/Vol] 204 mg/dL Critically high 74-106 [facility] Comment on above: Performed By: #### C MP #### [facility] [address] [address] [address] Karena Montero Potassium [Moles/Vol] 3.0 mmol/L Critically low 3.5-5.1 [facility] Comment on above: Performed By: #### C MP #### [facility] [address] [address] [address] Karena Montero Protein [Mass/Vol] 8.4 g/dL Critically high 6.4-8.2 [facility] Comment on above: Performed By: #### C MP #### [facility] [address] [address] [address] Karena Montero Sodium [Moles/Vol] 130 mmol/L Critically low 136-145 [facility] Comment on above: Performed By: #### C MP #### [facility] [address] [address] [address] Karena Montero Urea nitrogen [Mass/Vol] 10.0 mg/dL Normal 7.0-18.0 [facility] Comment on above: Performed By: #### C MP #### [facility] [address] [address] [address] Karena Montero Urea nitrogen/Creatinine [Mass ratio] 11.8 mg/mg [facility] Comment on above: Performed By: #### C MP #### [facility] [address] [address] [address] Karena Montero STREPT SCREENon 06-20-2022 STREP SCREEN A Positive Abnormal NEGATIVE [facility] Comment on above: Performed By: #### C BC #### [facility] [address] [address] [address] Karena Montero THYROGLOBULIN AB AND THYROGL OBULINon 05-29-2022 Thyroglobulin Antibody <1.0 Normal 0.0-0.9 [facility] Comment on above: Result Comment: Thyr oglobulin Antibody measured by [facility] [place] Methodology Performed By: #### T HYGIMA #### [facility] [address] [place] [address] Dr. Karena Montero Thyroglobulin by ZACK <0.1 Critically low 1.5-38.5 [facility] Comment on above: Result Comment: Acco rding to the National Academy of Clinical Biochemistry, the reference interval for Thyroglobulin (TG) should be related to euthyroid patients and not for patients who underwent thyroidectomy. TG reference intervals for these patients depend on the residual mass of the thyroid tissue left after surgery. Establishing a post-operative baseline is recommended. The assay limit of quantitation is 0.1 ng/mL . Thyroglobulin measured by [facility] [place] Immunometric Assay Performed By: #### T HYGIMA #### [facility] [address] [place] [address] Dr. Karena Montero T3, TOTAL (TRIIODOTHYRONINE) on 05-28-2022 T3, TOTAL 77 ng/dL Normal 71-180 [facility] Comment on above: Performed By: #### C BC #### [facility] [address] [place] [address] Dr. Karena Montero GLYCOHEMOGLOBIN A1Con 2021 ADA RECOMMENDATION SEE BELOW Normal [facility] Comment on above: Result Comment: ADA RECOMMENDED LIMIT 4.0 - 6.0 ADA THERAPEUTIC TARGET < 7.0 ACTION SUGGESTED > 7.0 Performed By: #### T 4, TSH #### [facility] [address] [place] [address] Dr. Karena Montero Glucose [Mass/Vol] 252 mg/dL Normal [facility] Comment on above: Performed By: #### T 4, TSH #### [facility] [address] [address] [address] Karena Montero HbA1c (Bld) [Mass fraction] 10.4 % Critically high 4.5-6.2 [facility] Comment on above: Performed By: #### T 4, TSH #### [facility] [address] [place] [address] Dr. Karena Montero PROF CHEM 8 (BAS METB)on Anion gap [Moles/Vol] 11.2 mmol/L Normal [facility] Comment on above: Performed By: #### C BC #### [facility] [address] [place] [address] Dr. Karena Montero Calcium [Mass/Vol] 9.2 mg/dL Normal 8.5-10.1 [facility] Comment on above: Performed By: #### C BC #### [facility] [address] [place] [address] Dr. Karena Montero Chloride [Moles/Vol] 98 mmol/L Normal 98-107 [facility] Comment on above: Performed By: #### C BC #### [facility] [address] [place] [address] Dr. Karena Montero CO2 [Moles/Vol] 30.4 mmol/L Normal 21.0-32.0 [facility] Comment on above: Performed By: #### C BC #### [facility] [address] [place] [address] Dr. Karena Montero Creatinine [Mass/Vol] 0.99 mg/dL Normal 0.55-1.02 [facility] Comment on above: Performed By: #### C BC #### [facility] [address] [place] [address] Dr. Karena Montero EGFR-AF MALAYSIAN >60 Normal >=60 [facility] Comment on above: Performed By: #### C BC #### [facility] [address] [place] [address] Dr. Karena Montero EGFR-NON AF MALAYSIAN 58 mL/min/1.73m2 Critically low >=60 [facility] Comment on above: Performed By: #### C BC #### [facility] [address] [address] [address] Karena Montero Glucose [Mass/Vol] 274 mg/dL Critically high 74-106 [facility] Comment on above: Performed By: #### C BC #### [facility] [address] [address] [address] Karena Montero Potassium [Moles/Vol] 3.6 mmol/L Normal 3.5-5.1 [facility] Comment on above: Performed By: #### C BC #### [facility] [address] [address] [address] Karena Montero Sodium [Moles/Vol] 136 mmol/L Normal 136-145 [facility] Comment on above: Performed By: #### C BC #### [facility] [address] [address] [address] Karena Montero Urea nitrogen [Mass/Vol] 13.0 mg/dL Normal 7.0-18.0 [facility] Comment on above: Performed By: #### C BC #### [facility] [address] [address] [address] Karena Montero Urea nitrogen/Creatinine [Mass ratio] 13.1 mg/mg Normal [facility] Comment on above: Performed By: #### C BC #### [facility] [address] [address] [address] Karena Montero T4on 05-27-2022 T4 [Mass/Vol] 11.00 ug/dL Normal 4.80-13.90 [facility] Comment on above: Performed By: #### C BC #### [facility] [address] [address] [address] Karena Montero TSHon 05-27-2022 TSH 35.436 uIU/mL Critically high 0.358-3.740 [facility] Comment on above: Performed By: #### C BC #### [facility] [address] [address] [address] Karena Montero MG MAMM SCREEN 3D FRANCI CADon 04-27-2022 MG MAMM SCREEN 3D FRANCI CAD Patient: KATALINA HUTCHINS Exam Date: 04/27/2022 : 1965 Gender:F Ordering : [facility] Admission #: [id number] Family : Order #: [id number] CLICK HERE TO VIEW EXAM RADIOLOGY REPORT PROCEDURE: MAMMOGRAM SCREENING 3D BILATERAL CAD COMPARISON: MG MAMM SCREEN 3D FRANCI CAD, 11/28/2020. MG MAMM SCREEN FRANCI W CAD, 10/25/2019. INDICATIONS: Screening mammography Calculator Name NCI Breast Cancer Risk Assessment Tool 5 Year Breast Cancer Risk 1.40% Lifetime Breast Cancer Risk 9.90% Personal Breast Cancer No Personal Ovarian Cancer No Treatments None Family Cancers Grandmother-paternal with breast cancer at age 50; Mother with uterine cancer at age 26. LOCATION: [facility] BREAST COMPOSITION: Scattered areas fibroglandular density. FINDINGS: DIAGNOSTIC CATEGORY 2--BENIGN FINDING: RIGHT BREAST: No significant suspicious finding. No significant change has occurred. LEFT BREAST: No significant suspicious finding. Scattered benign-appearing lymph nodes are present. No significant change has occurred. RECOMMENDATIONS: ROUTINE MAMMOGRAM AND CLINICAL EVALUATION IN 12 MONTHS. PLEASE NOTE: A NORMAL MAMMOGRAM DOES NOT EXCLUDE THE POSSIBILITY OF BREAST CANCER. A CLINICALLY SUSPICIOUS PALPABLE LUMP SHOULD BE BIOPSIED. Dictated by: Matias Edwards M.D. on 04/28/2022 at 12:08 Approved by: Matias Edwards M.D. on 04/28/2022 at 12:11 Normal [facility] PTH INTACTon 02-20-2022 PTH, Intact 11 pg/mL Critically low 15-65 [facility] Comment on above: Performed By: #### T 4, TSH #### [facility] [address] [address] [address] Karena Montero VIT D 25-OH [facility] 2021 Vitamin D, 25-Hydroxy 43.2 ng/mL Normal 30.0-100.0 [facility] Comment on above: Result Comment: Yvonne min D deficiency has been defined by the [place] of [employer] and an Endocrine Society practice guideline as a level of serum 25-OH vitamin D less than 20 ng/mL (1,2). The Endocrine Society went on to further define vitamin D insufficiency as a level between 21 and 29 ng/mL (2). 1. IOM ([place] of [employer]). 2010. Dietary reference intakes for calcium and D. [place]: The National Academies Press. 2. Herminia MF, Jean Marie [place], Leigh LOYOLA, et al. Evaluation, treatment, and prevention of vitamin D deficiency: an Endocrine Society clinical practice guideline. JCEM. 2010; 96(7):1911-30. Performed By: #### M RUBY #### [facility] [address] [place] [address] Dr. Karena Montero CALCIUMon 02-18-2022 Calcium [Mass/Vol] 9.8 mg/dL Normal 8.5-10.1 [facility] Comment on above: Performed By: #### M RUBY #### [facility] [address] [address] [address] Karena Montero Covid-19 PCR (CVDTB)on 01-06 SARS-CoV-2 (COVID-19) RNA RADHA+probe Ql (Unsp spec) Not detected Normal NOT DETECTED [facility] Comment on above: Result Comment: This test is not yet approved or cleared by the [place] FDA. When there are no FDA-approved or cleared tests available, and other criteria are met, FDA can make tests available under an emergency access mechanism called an Emergency Use Authorization (EUA). The EUA for this test is supported by the Client Manager of Health and Human Service's (HHS's) declaration that circumstances exist to justify the emergency use of in vitro diagnostics for the detection and/or diagnosis of the virus that causes COVID-19. This EUA will remain in effect (meaning this test can be used) for the duration of the COVID-19 declaration justifying emergency of IVDs, unless it is terminated or revoked by FDA (after which the test may no longer be used). When diagnostic testing is negative, the possibility of a false negative should be considered in the context of a patient's recent exposures and the presence of clinical signs and symptoms consistent with SARS-CoV-2. Performed By: #### M RUBY #### [facility] [address] [place] [address] Dr. Karena Montero MICROALBUMIN URINEon 022 Albumin, Urine 64.2 ug/mL Normal Not Estab. [facility] Comment on above: Performed By: #### M ALBLC #### [facility] [address] [place] [address] Dr. Karena Montero T3, TOTAL (TRIIODOTHYRONINE) on 01-30-2022 T3, TOTAL 101 ng/dL Normal 71-180 [facility] Comment on above: Performed By: #### T 4, TSH #### [facility] [address] [place] [address] Dr. Karena Montero T4 [facility] 01-30-2022 T4 [Mass/Vol] 12.3 ug/dL Critically high 4.5-12.0 [facility] Comment on above: Performed By: #### M RUBY #### [facility] [address] [place] [address] Dr. Karena Montero CBC AUTO DIFFon 01-29-2022 BASO # 0.1 103/ul Normal 0.0-0.1 [facility] Comment on above: Performed By: #### C BC #### [facility] [address] [place] [address] Dr. Karena Montero Basophils/100 WBC (Bld) 1.2 % Normal 0.2-2.0 [facility] Comment on above: Performed By: #### C BC #### [facility] [address] [place] [address] Dr. Karena Montero EO # 0.1 103/ul Normal 0.0-0.7 [facility] Comment on above: Performed By: #### C BC #### [facility] [address] [place] [address] Dr. Karena Montero Eosinophils/100 WBC (Bld) 2.6 % Normal 0.9-7.0 [facility] Comment on above: Performed By: #### C BC #### [facility] [address] [place] [address] Dr. Karena Montero Erythrocyte distribution width (RBC) [Ratio] 14.0 % Normal 11.0-15.0 [facility] Comment on above: Performed By: #### C BC #### [facility] [address] [place] [address] Dr. Karena Montero Hematocrit (Bld) [Volume fraction] 42.7 % Normal 36.0-48.0 [facility] Comment on above: Performed By: #### C BC #### [facility] [address] [place] [address] Dr. Karena Montero Hemoglobin (Bld) [Mass/Vol] 14.4 g/dL Normal 12.0-16.0 [facility] Comment on above: Performed By: #### C BC #### [facility] [address] [place] [address] Dr. Karena Montero IG # 0.01 10e3/ul Normal 0.00-0.03 [facility] Comment on above: Performed By: #### C BC #### [facility] [address] [place] [address] Dr. Karena Montero IG % 0.2 % Normal 0.0-0.5 [facility] Comment on above: Performed By: #### C BC #### [facility] [address] [place] [address] Dr. Karena Montero LYMPH # 1.5 103/ul Normal 1.2-3.8 [facility] Comment on above: Performed By: #### C BC #### [facility] [address] [place] [address] Dr. Karena Montero Lymphocytes/100 WBC (Bld) 34.5 % Normal 20.5-60.0 [facility] Comment on above: Performed By: #### C BC #### [facility] [address] [place] [address] Dr. Karena Montero MANUAL DIFF REQ NO Normal [facility] Comment on above: Performed By: #### C BC #### [facility] [address] [place] [address] Dr. Karena Montero MCH (RBC) [Entitic mass] 29.0 pg Normal 26.7-34.0 [facility] Comment on above: Performed By: #### C BC #### [facility] [address] [address] [address] Karena Montero MCHC (RBC) [Mass/Vol] 33.7 g/dL Normal 29.9-35.2 [facility] Comment on above: Performed By: #### C BC #### [facility] [address] [address] [address] Karena Montero MCV (RBC) [Entitic vol] 85.9 fL Normal 81.0-99.0 [facility] Comment on above: Performed By: #### C BC #### [facility] [address] [address] [address] Karena Montero MONO # 0.4 103/ul Normal 0.3-0.8 [facility] Comment on above: Performed By: #### C BC #### [facility] [address] [place] [address] Dr. Karena Montero Monocytes/100 WBC (Bld) 8.2 % Normal 1.7-12.0 [facility] Comment on above: Performed By: #### C BC #### [facility] [address] [place] [address] Dr. Karena Montero NEUT # 2.3 103/ul Normal 1.4-6.5 [facility] Comment on above: Performed By: #### C BC #### [facility] [address] [place] [address] Dr. Karena Montero Neutrophils/100 WBC (Bld) 53.3 % Normal 43.0-75.0 [facility] Comment on above: Performed By: #### C BC #### [facility] [address] [place] [address] Dr. Karena Montero Platelet mean volume (Bld) [Entitic vol] 11.6 fL Normal 9.5-13.5 [facility] Comment on above: Performed By: #### C BC #### [facility] [address] [place] [address] Dr. Karena Montero PLT 167 103/ul Normal 150-450 [facility] Comment on above: Performed By: #### C BC #### [facility] [address] [address] [address] Karena Montero RBC 4.97 106/ul Normal 4.20-5.40 [facility] Comment on above: Performed By: #### C BC #### [facility] [address] [place] [address] Dr. Karena Montero WBC 4.3 103/ul Normal 4.0-11.0 [facility] Comment on above: Performed By: #### C BC #### [facility] [address] [place] [address] Dr. Karena Montero GLYCOHEMOGLOBIN A1Con 2021 ADA RECOMMENDATION SEE BELOW Normal [facility] Comment on above: Result Comment: ADA RECOMMENDED LIMIT 4.0 - 6.0 ADA THERAPEUTIC TARGET < 7.0 ACTION SUGGESTED > 7.0 Performed By: #### A 1C #### [facility] [address] [place] [address] Dr. Karena Montero Glucose [Mass/Vol] 258 mg/dL Normal [facility] Comment on above: Performed By: #### A 1C #### [facility] [address] [place] [address] Dr. Karena Montero HbA1c (Bld) [Mass fraction] 10.6 % Critically high 4.5-6.2 [facility] Comment on above: Performed By: #### A 1C #### [facility] [address] [place] [address] Dr. Karena Montero LIPID PROFILEon 01-29-2022 CHOL-HDL RATIO NORM SEE BELOW Normal [facility] Comment on above: Result Comment: 3.3 - 4.4 LOW RISK 4.4 - 7.1 AVERAGE RISK 7.1 - 11.0 MODERATE RISK >11.0 HIGH RISK Performed By: #### M RUBY #### [facility] [address] [place] [address] Dr. Karena Montero Cholesterol [Mass/Vol] 160 mg/dL Normal <=200 [facility] Comment on above: Performed By: #### M RUBY #### [facility] [address] [place] [address] Dr. Karena Montero Cholesterol in HDL [Mass/Vol] 60 mg/dL Normal 40-60 [facility] Comment on above: Performed By: #### M RUBY #### [facility] [address] [address] [address] Karena Montero Cholesterol in LDL [Mass/Vol] 83.0 mg/dL Normal [facility] Comment on above: Performed By: #### M RUBY #### [facility] [address] [address] [address] Karena Montero Cholesterol.total/Ch olesterol in HDL [Mass ratio] 2.7 {ratio} Normal [facility] Comment on above: Performed By: #### M RUBY #### [facility] [address] [place] [address] Dr. Karena Montero HDL NORMAL > or = 60 mg/dl - LO W CARDIOVASCULAR RISK <40 mg/dl - HIGH CARDIOVASCULAR RISK Normal [facility] Comment on above: Performed By: #### M RUBY #### [facility] [address] [address] [address] Karena Montero LDL CALC NORMAL SEE BELOW Normal [facility] Comment on above: Result Comment: <100 mg/dl OPTIMAL 100 - 129 mg/dl NEAR OR ABOVE OPTIMAL 130 - 159 mg/dl BORDERLINE HIGH 160 - 189 mg/dl HIGH >190 mg/dl VERY HIGH Performed By: #### M RUBY #### [facility] [address] [place] [address] Dr. Karena Montero Triglyceride [Mass/Vol] 85 mg/dL Normal <=150 [facility] Comment on above: Performed By: #### M RUBY #### [facility] [address] [address] [address] Karena Montero VLDL CALC 17.0 mg/dL Normal [facility] Comment on above: Performed By: #### M RUBY #### [facility] [address] [place] [address] Dr. Karena Montero PROF 14(COMP METB)on 022 Albumin [Mass/Vol] 3.3 g/dL Critically low 3.4-5.0 Th [facility] Comment on above: Performed By: #### M RUBY #### [facility] [address] [address] [address] Karena Montero Albumin/Globulin [Mass ratio] 0.8 {ratio} Normal [facility] Comment on above: Performed By: #### M RUBY #### [facility] [address] [address] [address] Karena Montero ALP [Catalytic activity/Vol] 47 U/L Normal 46-116 [facility] Comment on above: Performed By: #### M RUBY #### [facility] [address] [address] [address] Karena Montero ALT [Catalytic activity/Vol] 39 U/L Normal 14-59 [facility] Comment on above: Performed By: #### M RUBY #### [facility] [address] [address] [address] Karena Montero Anion gap [Moles/Vol] 14.2 mmol/L Normal [facility] Comment on above: Performed By: #### M RUBY #### [facility] [address] [address] [address] Karena Montero AST [Catalytic activity/Vol] 38 U/L Critically high 15-37 [facility] Comment on above: Performed By: #### M RUBY #### [facility] [address] [place] [address] Dr. Karena Montero Bilirubin [Mass/Vol] 0.9 mg/dL Normal 0.2-1.0 [facility] Comment on above: Performed By: #### M RUBY #### [facility] [address] [address] [address] Karena Montero Calcium [Mass/Vol] 10.2 mg/dL Critically high 8.5-10.1 T [facility] Comment on above: Performed By: #### M RUBY #### [facility] [address] [address] [address] Karena Montero Chloride [Moles/Vol] 99 mmol/L Normal 98-107 [facility] Comment on above: Performed By: #### M RUBY #### [facility] [address] [address] [address] Karena Montero CO2 [Moles/Vol] 28.5 mmol/L Normal 21.0-32.0 [facility] Comment on above: Performed By: #### M RUBY #### [facility] [address] [address] [address] Karena Montero Creatinine [Mass/Vol] 0.97 mg/dL Normal 0.55-1.02 [facility] Comment on above: Performed By: #### M RUBY #### [facility] [address] [address] [address] Karena Montero EGFR-AF MALAYSIAN >60 Normal >=60 [facility] Comment on above: Performed By: #### M RUBY #### [facility] [address] [address] [address] Karena Montero EGFR-NON AF MALAYSIAN 60 mL/min/1.73m2 Normal >=60 [facility] Comment on above: Performed By: #### M RUBY #### [facility] [address] [address] [address] Karena Montero Globulin (S) [Mass/Vol] 4.3 g/dL Normal [facility] Comment on above: Performed By: #### M RUBY #### [facility] [address] [address] [address] Karena Montero Glucose [Mass/Vol] 303 mg/dL Critically high 74-106 T [facility] Comment on above: Performed By: #### M RUBY #### [facility] [address] [address] [address] Karena Montero Potassium [Moles/Vol] 3.7 mmol/L Normal 3.5-5.1 [facility] Comment on above: Performed By: #### M RUBY #### [facility] [address] [address] [address] Karena Montero Protein [Mass/Vol] 7.6 g/dL Normal 6.4-8.2 [facility] Comment on above: Performed By: #### M RUBY #### [facility] [address] [address] [address] Karena Montero Sodium [Moles/Vol] 138 mmol/L Normal 136-145 [facility] Comment on above: Performed By: #### M RUBY #### [facility] [address] [place] [address] Dr. Karena Montero Urea nitrogen [Mass/Vol] 13.0 mg/dL Normal 7.0-18.0 [facility] Comment on above: Performed By: #### M RUBY #### [facility] [address] [place] [address] Dr. Karena Montero Urea nitrogen/Creatinine [Mass ratio] 13.4 mg/mg Normal [facility] Comment on above: Performed By: #### M RUBY #### [facility] [address] [place] [address] Dr. Karena Montero TSHon 01-29-2022 TSH 6.250 uIU/mL Critically high 0.358-3.740 [facility] Comment on above: Performed By: #### T 4, TSH #### [facility] [address] [place] [address] Dr. Karena Montero UA RANDOM W/MICROSCOPICon BACTERIA NONE SEEN Normal NONE SEEN [facility] Comment on above: Performed By: #### U AMIC #### [facility] [address] [place] [address] Dr. Karena Montero Bilirubin Ql (U) Negative Normal NEGATIVE [facility] Comment on above: Performed By: #### U AMIC #### [facility] [address] [place] [address] Dr. Karena Montero CAST NONE SEEN Normal NONE SEEN [facility] Comment on above: Performed By: #### U AMIC #### [facility] [address] [place] [address] Dr. Karena Montero Clarity (U) CLEAR Normal CLEAR [facility] Comment on above: Performed By: #### U AMIC #### [facility] [address] [place] [address] Dr. Karena Montero Color (U) YELLOW Normal YELLOW [facility] Comment on above: Performed By: #### U AMIC #### [facility] [address] [address] [address] Karena Montero Crystals LM Nom (Urine sed) NONE SEEN Normal NONE SEEN [facility] Comment on above: Performed By: #### U AMIC #### [facility] [address] [address] [address] Karena Montero Epithelial cells LM Ql (Urine sed) MODERATE Abnormal NONE SEEN /RARE [facility] Comment on above: Performed By: #### U AMIC #### [facility] [address] [address] [address] Karena Montero Glucose Ql (U) Negative Normal NEGATIVE [facility] Comment on above: Performed By: #### U AMIC #### [facility] [address] [place] [address] Dr. Karena Montero Hemoglobin Ql (U) Negative Normal NEGATIVE [facility] Comment on above: Performed By: #### U AMIC #### [facility] [address] [address] [address] Karena Montero Ketones Ql (U) Negative Normal NEGATIVE [facility] Comment on above: Performed By: #### U AMIC #### [facility] [address] [address] [address] Karena Montero LEUKOCYTES Negative Normal NEGATIVE [facility] Comment on above: Performed By: #### U AMIC #### [facility] [address] [address] [address] Karena Montero MUCOUS NONE SEEN Normal NONE SEEN [facility] Comment on above: Performed By: #### U AMIC #### [facility] [address] [address] [address] Karena Montero Nitrite Ql (U) Negative Normal NEGATIVE [facility] Comment on above: Performed By: #### U AMIC #### [facility] [address] [place] [address] Dr. Karena Montero pH (U) 5.5 [pH] Normal 5-9 [facility] Comment on above: Performed By: #### U AMIC #### [facility] [address] [address] [address] Karena Montero RBC 0-2 Normal 0-2 [facility] Comment on above: Performed By: #### U AMIC #### [facility] [address] [address] [address] Karena Montero SPEC GRAVITY >=1.030 Abnormal 1.005-<=1.025 [facility] Comment on above: Performed By: #### U AMIC #### [facility] [address] [address] [address] Karena Montero UA PROTEIN TRACE Normal NEGATIVE/ TRACE [facility] Comment on above: Performed By: #### U AMIC #### [facility] [address] [address] [address] Karena Montero Urobilinogen Qn (U) 1.0 {Emily'U}/dL Normal 0.2 - 1. 0 [facility] Comment on above: Performed By: #### U AMIC #### [facility] [address] [address] [address] Karena Montero WBC 0-2 Abnormal NONE SEEN [facility] Comment on above: Performed By: #### U AMIC #### [facility] [address] [place] [address] Dr. Karena Montero Encounters Encounter Date Encounter Type Care Provider Facility Start: 07-07-2023 Refill Katalina Colbert SWITCH OPERATOR Work Phone: [facility] Comment on above: Acute non-recurrent sinusitis of other sinus (Primary Dx) Start: 06-09-2023 End: 06-09-2023 ambulatory KATALINA COLBERT Not Available Start: 05-04-2023 Refill Zion armstrong MD Work Phone: Radiation Oncology Comment on above: Refill Request Start: 03-24-2023 End: 03-25-2023 ambulatory Zion Nguent MD Work Phone: Radiation Oncology Comment on above: History of thyroid c ancer (Primary Dx) Start: 03-24-2023 End: 03-24-2023 Telemedicine consultation with patient Zion Nugent MD Work Phone: [facility] Start: 03-24-2023 Telephone encounter [facility] Comment on above: Appointment Confirma tion Start: 01-03-2023 Refill Michell Soto [facility] Work Phone: [facility] Comment on above: Refill Request Start: 11-18-2022 End: 11-19-2022 ambulatory Zion Nugent MD Work Phone: Radiation Oncology Comment on above: Thymic cancer (HCC) (Primary Dx); Thyroid cancer (HCC) Start: 11-18-2022 End: 11-19-2022 Telemedicine consultation with patient Zion Nugent MD Work Phone: [facility] Start: 11-18-2022 Telephone encounter Zion Nugent MD Work Phone: Radiation Oncology Comment on above: Future Appointment Start: 10-12-2022 End: 10-13-2022 ambulatory TARIK COLBERT Facility:[facility] Start: 09-09-2022 End: 09-09-2022 ambulatory Zion NUGENT Facility:[facility] Start: 09-09-2022 End: 09-09-2022 ambulatory Zion Nugent MD Work Phone: Radiation Oncology Comment on above: Thyroid cancer (HCC) (Primary Dx) Start: 09-09-2022 End: 09-09-2022 Telemedicine consultation with patient Zion Nugent MD Work Phone: [facility] Start: 09-08-2022 End: 09-09-[address] WILLY NUGENT Facility:[facility] Start: 09-08-2022 Telephone encounter Zion Nugent MD Work Phone: Hematology/Oncology Comment on above: Orders faxed Start: 09-06-2022 Patient encounter procedure [facility] Provider [facility] Start: 06-20-2022 End: 06-21-2022 ambulatory KAYLA BLOUNT . Facility:[facility] Start: 06-10-2022 End: 06-10-2022 ambulatory Zion NUGENT Facility:[facility] Start: 06-10-2022 End: 06-10-2022 ambulatory Zion Nugent MD Work Phone: Radiation Oncology Comment on above: Thyroid cancer (HCC) (Primary Dx) Start: 06-10-2022 End: 06-10-2022 Telemedicine consultation with patient Zion Nugent MD Work Phone: [facility] Start: 06-02-2022 End: 06-03-2022 ambulatory Zion NUGENT Facility:[facility] Start: 06-02-2022 End: 06-03-2022 ambulatory Zion Nugent MD Work Phone: Radiation Oncology Comment on above: Thyroid cancer (HCC) (Primary Dx) Start: 06-02-2022 End: 06-03-2022 Telemedicine consultation with patient Zion Nugent MD Work Phone: [facility] Start: 05-27-2022 End: 05-28-[address] WILYL NUEGNT Facility:[facility] Start: 04-27-2022 End: 04-28-2022 ambulatory TARIK COLBERT Facility:[facility] Start: 04-16-2022 Refill Zion armstrong MD Work Phone: Radiation Oncology Comment on above: Refill Request Start: 02-18-2022 End: 02-19-2022 ambulatory TARKI COLBERT Facility:[facility] Start: 02-04-2022 End: 02-05-2022 ambulatory Zion Nugent MD Work Phone: Radiation Oncology Comment on above: Thyroid cancer (HCC) (Primary Dx) Start: 02-04-2022 End: 02-05-2022 Telemedicine consultation with patient Zion Nugent MD Work Phone: [facility] Start: 02-03-2022 End: 02-03-2022 ambulatory TARIK COLBERT Facility:[facility] Start: 01-29-2022 End: 01-30-[address] WILLY NUGENT Facility:[facility] Start: 11-05-2021 End: 11-05-2021 ambulatory Zion Nugent MD Work Phone: Radiation Oncology Comment on above: Thyroid cancer (HCC) (Primary Dx) Start: 11-05-2021 End: 11-05-2021 Telemedicine consultation with patient Zion Akua Nugent MD Work Phone: [facility] Start: 10-13-2021 End: 10-13-2021 ambulatory Zion Nugent MD Work Phone: Radiation Oncology Comment on above: Thyroid cancer (HCC) (Primary Dx) Start: 10-13-2021 End: 10-13-2021 Telemedicine consultation with patient Zion Akua Nugent MD Work Phone: [facility] Start: 05-27-2020 End: 05-27-2020 Patient encounter procedure External Provider [facility] Start: 05-27-2020 Results Only External Provider Exter nal-NonCCF Procedures Date Procedure Procedure Detail Performing Clinician Start: 06-09-2023 Microscopic observat ion [Identifier] in Cervix by Cyto stain Katalina Colbert SWITCH OPERATOR Work Phone: Start: 05-04-2023 Mammography Katalina bardales SWITCH OPERATOR Work Phone: Start: 02-01-2022 Adult depression scr eening assessment SOFY Nugent MD Work Phone: Start: 09-28-2021 Adult depression scr eening assessment SOFY Nugent MD Work Phone: Start: 05-27-2020 End: 05-27-2020 EXTERNAL IMAGING External Provider Start: 05-27-2020 EXTERNAL CARDIOLOGY Ext ernal Provider Start: 05-27-2020 End: 05-27-2020 EXTERNAL LAB External Provider Start: 05-27-2020 EXTERNAL PROCEDURE Exte rnal Provider Plan of Treatment Date Care Activity Detail Author Start: 06-09-2026 Screening for malign ant neoplasm of cervix [facility] Start: 05-04-2024 Screening for malign ant neoplasm of breast Mammogram [facility] Start: 02-11-2024 DIABETES SCREEN DIABETES SCREEN [facility] Start: 02-11-2024 Diabetes Screening Diabetes Screenin g [facility] Start: 09-08-2023 End: 09-08-2023 Patient encounter procedure 09/08/2023 6:00 PM EDT Office Visit [facility] [address] [place] [address] Katalina Colbert, NETTIE [address] [place] [address] [facility] Start: 08-22-2023 Screening for malign ant neoplasm of colon [facility] Start: 08-09-2023 Influenza vaccination Influenza Vacc ine (#1) [facility] Comment on above: Postponed from 02/04 (Other Patient Reasons) Start: 07-25-2023 End: 10-24-2023 THYROGLOBULIN BY MASS SPECTROMETRY THYROGLOBULIN BY MASS SPECTROMETRY Lab Routine History of thyroid cancer Expected: 07/25/2023, Expires: 10/24/2023 [facility] Work Phone: Comment on above: Expected: 07/25/2023 , Expires: 10/24/2023 Start: 07-25-2023 End: 03-24-2024 Thyrotropin [Units/volume] in Serum or Plasma TSH BLD Lab Routine History of thyroid cancer Expected: 07/25/2023, Expires: 03/24/2024 [facility] Work Phone: Comment on above: Expected: 07/25/2023 , Expires: 03/24/2024 Start: 07-25-2023 End: 03-24-2024 Thyroxine (T4) [Mass/volume] in Serum or Plasma T4/THYROXINE BLOOD Lab Routine History of thyroid cancer Expected: 07/25/2023, Expires: 03/24/2024 [facility] Work Phone: Comment on above: Expected: 07/25/2023 , Expires: 03/24/2024 Start: 07-25-2023 End: 03-24-2024 Triiodothyronine (T3) [Mass/volume] in Serum or Plasma T3 BLD Lab Routine History of thyroid cancer Expected: 07/25/2023, Expires: 03/24/2024 [facility] Work Phone: Comment on above: Expected: 07/25/2023 , Expires: 03/24/2024 Start: 02-23-2023 End: 04-25-2023 Thyrotropin [Units/volume] in Serum or Plasma TSH BLD Lab Routine Thyroid cancer (HCC) Expected: 02/23/2023, Expires: 04/25/2023 [facility] Work Phone: Comment on above: Expected: 02/23/2023 , Expires: 04/25/2023 Start: 02-23-2023 End: 04-25-2023 Thyroxine (T4) [Mass/volume] in Serum or Plasma T4/THYROXINE BLOOD Lab Routine Thyroid cancer (HCC) Expected: 02/23/2023, Expires: 04/25/2023 [facility] Work Phone: Comment on above: Expected: 02/23/2023 , Expires: 04/25/2023 Start: 02-04-2023 Influenza vaccination [facility] Start: 02-01-2023 Adult depression scr kit [facility] assessment DEPRESSION SCREENING [facility] Start: 11-09-2022 End: 09-10-2023 Thyrotropin [Units/volume] in Serum or Plasma TSH BLD Lab Routine Thyroid cancer (HCC) Expected: 11/09/2022, Expires: 09/10/2023 [facility] Work Phone: Comment on above: Expected: 11/09/2022 , Expires: 09/10/2023 Start: 11-09-2022 End: 09-10-2023 Thyroxine (T4) [Mass/volume] in Serum or Plasma T4/THYROXINE BLOOD Lab Routine Thyroid cancer (HCC) Expected: 11/09/2022, Expires: 09/10/2023 [facility] Work Phone: Comment on above: Expected: 11/09/2022 , Expires: 09/10/2023 Start: 11-09-2022 End: 09-10-2023 Triiodothyronine (T3) [Mass/volume] in Serum or Plasma T3 BLD Lab Routine Thyroid cancer (HCC) Expected: 11/09/2022, Expires: 09/10/2023 [facility] Work Phone: Comment on above: Expected: 11/09/2022 , Expires: 09/10/2023 Start: 09-28-2022 Adult depression scr eening assessment DEPRESSION SCREENING [facility] Start: 09-08-2022 End: 06-10-2023 Thyrotropin [Units/volume] in Serum or Plasma TSH BLD Lab Routine Thyroid cancer ([facility]) Expected: 09/08/2022, Expires: 06/10/2023 [facility] Work Phone: Comment on above: Expected: 09/08/2022 , Expires: 06/10/2023 Start: 09-08-2022 End: 06-10-2023 Thyroxine (T4) [Mass/volume] in Serum or Plasma T4/THYROXINE BLOOD Lab Routine Thyroid cancer ([facility]) Expected: 09/08/2022, Expires: 06/10/2023 [facility] Work Phone: Comment on above: Expected: 09/08/2022 , Expires: 06/10/2023 Start: 09-08-2022 End: 06-10-2023 Triiodothyronine (T3) [Mass/volume] in Serum or Plasma T3 BLD Lab Routine Thyroid cancer ([facility]) Expected: 09/08/2022, Expires: 06/10/2023 [facility] Work Phone: Comment on above: Expected: 09/08/2022 , Expires: 06/10/2023 Start: 06-06-2022 DEPRESSION ASSESSMENT DEPRESSION ASS ESSMENT [facility] Start: 05-14-2022 End: 07-14-2022 Thyroglobulin Ab [Units/volume] in Serum or Plasma THYROGLOBULIN AB Lab Routine Thyroid cancer ([facility]) Expected: 05/14/2022, Expires: 07/14/2022 [facility] Work Phone: Comment on above: Expected: 05/14/2022 , Expires: 07/14/2022 Start: 05-14-2022 End: 07-14-2022 Thyroglobulin and Thyrogobulin Ab panel - Serum or Plasma THYROGLOBULIN BLD Lab Routine Thyroid cancer (HCC) Expected: 05/14/2022, Expires: 07/14/2022 [facility] Work Phone: Comment on above: Expected: 05/14/2022 , Expires: 07/14/2022 Start: 05-14-2022 End: 02-12-2023 Thyrotropin [Units/volume] in Serum or Plasma TSH BLD Lab Routine Thyroid cancer (HCC) Expected: 05/14/2022, Expires: 02/12/2023 [facility] Work Phone: Comment on above: Expected: 05/14/2022 , Expires: 02/12/2023 Start: 05-14-2022 End: 02-12-2023 Thyroxine (T4) [Mass/volume] in Serum or Plasma T4/THYROXINE BLOOD Lab Routine Thyroid cancer (HCC) Expected: 05/14/2022, Expires: 02/12/2023 [facility] Work Phone: Comment on above: Expected: 05/14/2022 , Expires: 02/12/2023 Start: 05-14-2022 End: 02-12-2023 Triiodothyronine (T3) [Mass/volume] in Serum or Plasma T3 BLD Lab Routine Thyroid cancer (HCC) Expected: 05/14/2022, Expires: 02/12/2023 [facility] Work Phone: Comment on above: Expected: 05/14/2022 , Expires: 02/12/2023 Start: 02-05-2022 End: 04-07-2022 T3 BLD T3 BLD Lab Routine Thyroid cancer (HCC) Expected: 02/05/2022, Expires: 04/07/2022 [facility] Work Phone: Comment on above: Expected: 02/05/2022 , Expires: 04/07/2022 Start: 02-05-2022 End: 04-07-2022 Thyrotropin [Units/volume] in Serum or Plasma TSH BLD Lab Routine Thyroid cancer (HCC) Expected: 02/05/2022, Expires: 04/07/2022 [facility] Work Phone: Comment on above: Expected: 02/05/2022 , Expires: 04/07/2022 Start: 02-05-2022 End: 04-07-2022 Thyroxine (T4) [Mass/volume] in Serum or Plasma T4/THYROXINE BLOOD Lab Routine Thyroid cancer (HCC) Expected: 02/05/2022, Expires: 04/07/2022 [facility] Work Phone: Comment on above: Expected: 02/05/2022 , Expires: 04/07/2022 Start: 02-04-2022 Influenza vaccination C [facility] Start: 12-16-2021 End: 02-15-2022 Thyrotropin [Units/volume] in Serum or Plasma TSH BLD Lab Routine Thyroid cancer (HCC) Expected: 12/16/2021, Expires: 02/15/2022 [facility] Work Phone: Comment on above: Expected: 12/16/2021 , Expires: 02/15/2022 Start: 12-16-2021 End: 02-15-2022 Thyroxine (T4) [Mass/volume] in Serum or Plasma T4/THYROXINE BLOOD Lab Routine Thyroid cancer (HCC) Expected: 12/16/2021, Expires: 02/15/2022 [facility] Work Phone: Comment on above: Expected: 12/16/2021 , Expires: 02/15/2022 Start: 06-06-2021 DEPRESSION ASSESSMENT DEPRESSION ASS ESSMENT [facility] Start: 02-05-2020 Influenza vaccination INFLUENZA (#1) [facility] Start: 04-26-2018 Hemoglobin A1c measurement Freda betes: Hemoglobin A1C [facility] Start: 2017 Screening for malign ant neoplasm of colon [facility] Start: 2017 SHINGRIX VACCINE (1 of 2) MOCK GRIX VACCINE (1 of 2) [facility] Start: 01-25-2012 COLOGUARD (FIT-DNA) COLOGUARD (FIT-D NA) [facility] Start: 01-25-2012 Colonoscopy COLONOSCOPY [facility] Start: 01-25-2012 COLORECTAL CANCER SCREENING COLORECTAL CANCER SCREENING [facility] Start: 01-25-[address] COLONOGRAPHY [facility] Start: 01-25-2012 DIABETES SCREEN DIABETES SCREEN [facility] Start: 01-25-2012 FECAL OCCULT BLOOD FECAL OCCULT BLOO D [facility] Start: 01-25-2012 Lipid 1996 panel - S khushbu or Plasma Lipid Screening [facility] Start: 01-25-2012 LIPID SCREEN LIPID SCREEN [facility] Start: 01-25-2012 SIGMOIDOSCOPY SIGMOIDOSCOPY [facility] Start: 2007 Mammography [facility] Start: 1997 HPV TESTING HPV TESTING [facility] Start: 1997 Screening for malign ant neoplasm of cervix HPV/Cotest [facility] Start: 01-25-1988 PAP TESTING PAP TESTING [facility] Start: 1986 Urine microalbumin profile [facility] Start: 1986 Urine screening for protein Diabetes: Urine Protein Screening [facility] Start: 1985 HEPATITIS C SCREENING HEPATITIS C SC REENING [facility] Start: 1985 HIV SCREENING HIV SCREENING [facility] Start: 1977 Glaucoma screening Diabetes: R etinopathy Screening [facility] Start: 1973 PNEUMOCOCCAL (1 - PCV) PNEUMOCOCCAL (1 - PCV) [facility] Start: 01-25-1972 COVID-19 VACCINE (#1) COVID-19 VACCI NE (#1) [facility] Start: 1967 COVID-19 VACCINE (#1) COVID-19 VACCI NE (#1) [facility] Start: 1967 HEPATITIS B (1 of 3 - 3-dose series) HEPATITIS B (1 of 3 - 3-dose series) [facility] Start: 1967 Hepatitis B Vaccine (1 of 3 - 3-dose series) Hepatitis B Vaccine (1 of 3 - 3-dose series) [facility] Start: 1965 Screening for malign ant neoplasm of colon [facility] Immunizations Immunization Date Immunization Notes Care Provider [facility] 03-25-2020 influenza virus vacc ine, unspecified formulation SOFY Nugent MD Work Phone: [facility] Payers Date Payer Category Payer Private Health Insurance [facility] [id number] 2020-Present [phone] [address] [place] [address] HMO [id number] 2020 Private Health Insurance [id number] 2020 Unknown [id number] 2019 Unknown [employer]EN [employer] PPO [id number] 2019-Present PPO [id number] 1967 Unknown [id number] 1967 Unknown [id number] 1967 Unknown [id number] 1967 Unknown [id number] 1967 Unknown [id number] 1967 Unknown [id number] 1967 Unknown [id number] 1967 Unknown [id number] 1967 Unknown [id number] 1967 Unknown [id number] 1967 Unknown [id number] 1959 Private Health Insurance [id number] Social History Date Type Detail Facility Start: 05-11-2012 End: 06-09-2023 Tobacco smoking status NHIS Former smoker [facility] Work Phone: History of tobacco use Cigarette Smoker C [facility] Start: 05-11-2012 Alcohol intake Not Asked [facility] Start: 05-11-2012 Tobacco Comment quit smoking Jun 28, 2009 [facility] Start: 1965 Sex Assigned At Not on file [facility] Exposure to SARS-CoV -2 (event) Unable to assess [facility] Start: 05-11-2012 End: 06-02-2023 Cigarettes smoked current (pack per day) - Reported 1 [facility] Start: 05-11-2012 End: 05-29-2020 Tobacco use and exposure Smokeless tobacco non-user [facility] Work Phone: Start: 09-16-2020 End: 06-09-2023 Alcohol intake Ex-drinker (finding) [facility] History of tobacco use Current smoker [facility] Start: 01-25-2022 End: 02-04-2022 Exposure to SARS-CoV-2 (event) Not sure [facility] Start: 09-06-2022 End: 06-02-2023 Patient Health Questionnaire 2 item (PHQ-2) [Reported] [facility] Adult Depression Screening Assessment 0 [facility] Start: 07-20-2020 Gender identity Identifies as female gender (finding) [facility] Start: 07-20-2020 Sexual orientation Heterosexual (finding) [facility] Within the last year , have you been afraid of your partner or ex-partner? No [facility] Are you now , , , , never or living with a partner? Never [facility] How often to you hav e a drink containing alcohol? Never [facility] How hard is it for y ou to pay for the very basics like food, housing, medical care, and heating Somewhat hard [facility] Do you feel stress - tense, restless, nervous, or anxious, or unable to sleep at night because your mind is troubled all the time - these days [OSQ] To some extent [facility] (I/We) worried wheth er (my/our) food would run out before (I/we) got money to buy more. Never true [facility] Start: 06-09-2023 Tobacco Comment Last smoked: 5-10 years ago [facility] Start: 06-09-2023 Alcohol Comment caffeine more than 4 cups per day [facility] Start: 1965 Sex Assigned At Female [facility] Medical Equipment Procedure Code Equipment Code Equipment Origin al Text Equipment Identifier Dates 0---Anchr Sut 4.5mm Pshlk [facility] - [id number] Start: 11-29-2012 Comment on above: Description: SUTURE ANCHOR Inject 1 each under the skin in the morning and 1 each before bedtime. [id number] Start: 04-20-2023 Clinical Notes 10-16-2021 to 05-04-2023 Telephone Encounter - Jose Harris RN - 05/04/2023 1:20 PM ESTTelephone Encounter - Amanda Hammonds - 03/24/2023 3:26 PM Zion Mccarthy MD - 03/24/2023 2:56 PM EDT Note Date & Type Note Facility 05-04-2023 Miscellaneous Notes Formattin g of this note might be different from the original. Please review and sign if agreeable. Jose Harris RN documented in this encounter [facility] 03-24-2023 Note HNO ID: [id number] Author: Zion Nugent MD Service: ? Author Type: Physician Type: Progress Notes Filed: 03/24/2023 3:13 PM Note Text: AMBULATORY TELEPHONE VISIT Call made on 03/24/23 Katalina Hutchins has consented to this telephone encounter. 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 Patient received I-131 ablative therapy, 75.9 mCi on 07/09/2020 HPI: Doing well. Denies significant problems. No chest pain palpitations feelings of anxiousness. Denies dysphagia. Denies any weight gain. Data Reviewed: Most recent labs Ref. 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 Plan: TSH improved, a little higher than ideal however given T4 elevation recommend maintaining current Synthroid dose. Patient without any clinical issues related to this. Plan to recheck labs in 4 months. Total Time Spent: 6 minutes Zion Nugent MD [facility] 03-24-2023 Miscellaneous Notes Formattin g of this note might be different from the original. Images from the original note were not included. Mailed patient her lab tests she gets elsewere and scheudled appt for her Zion Nugent MD [facility] Nurse [place]; Amanda Hammonds See patient back or televisit 4 months with labs documented in this encounter [facility] 03-24-2023 History of Presen t illness Narrative AMBULATORY TELEPHONE VISIT Call made on 03/24/23 Katalina Hutchins has consented to this telephone encounter. 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 Patient received I-131 ablative therapy, 75.9 mCi on 07/09/2020 HPI: Doing well. Denies significant problems. No chest pain palpitations feelings of anxiousness. Denies dysphagia. Denies any weight gain. Data Reviewed: Most recent labs Ref. 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 Plan: TSH improved, a little higher than ideal however given T4 elevation recommend maintaining current Synthroid dose. Patient without any clinical issues related to this. Plan to recheck labs in 4 months. Total Time Spent: 6 minutes Zion Nugent MD documented in this encounter [facility] 11-18-2022 Note HNO ID: [id number] Author: Zion Nugent MD Service: ? Author Type: Physician Type: Progress Notes Filed: 11/23/2022 9:03 AM Note Text: AMBULATORY TELEPHONE VISIT Katalina Hutchins has consented to this telephone encounter. 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 Patient received I-131 ablative therapy, 75.9 mCi on 07/09/2020 HPI: Doing well. Denies significant problems. No chest pain palpitations feelings of anxiousness. Denies dysphagia. Denies any weight gain. Data Reviewed: Most recent labs Ref. 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 Plan: TSH improved, still high. Recommend maintaining Synthroid 200 mcg daily. Recheck in 3-4 months. Total Time Spent: 4 minutes G Akua Nugent MD Call made on 11/23/22 [facility] 11-18-2022 Miscellaneous Notes Formattin g of this note might be different from the original. Call placed to pt due to not having labs prior to phone visit with Dr Nugent. LM requesting she CB to reschedule after she Is able to have labs. Jose Harris, RN documented in this encounter [facility] 11-18-2022 History of Presen t illness Narrative AMBULATORY TELEPHONE VISIT Katalina Hutchins has consented to this telephone encounter. 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 Patient received I-131 ablative therapy, 75.9 mCi on 07/09/2020 HPI: Doing well. Denies significant problems. No chest pain palpitations feelings of anxiousness. Denies dysphagia. Denies any weight gain. Data Reviewed: Most recent labs Ref. 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 Plan: TSH improved, still high. Recommend maintaining Synthroid 200 mcg daily. Recheck in 3-4 months. Total Time Spent: 4 minutes Zion Nugent MD Call made on 11/23/22 documented in this encounter [facility] 09-09-2022 Note HNO ID: [id number] Author: Zion Nugent MD Service: ? Author Type: Physician Type: Progress Notes Filed: 09/09/2022 3:12 PM Note Text: AMBULATORY TELEPHONE VISIT Katalina Hutchins has consented to this telephone encounter. 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 Patient received I-131 ablative therapy, 75.9 mCi on 07/09/2020 HPI: Doing well. Denies significant problems. No chest pain palpitations feelings of anxiousness. Denies dysphagia. Denies any weight gain. Data Reviewed: Most recent labs Ref. 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 Plan: TSH needs more suppression. Recommend increasing Synthroid to 200 mcg daily. Recheck in 6 to 8 weeks. Encourage patient to call should she feel she is not tolerating this dose. Total Time Spent: 6 minutes Zion Nugent MD [facility] 09-09-2022 History of Presen t illness Narrative AMBULATORY TELEPHONE VISIT Katalina Huthcins has consented to this telephone encounter. 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 Patient received I-131 ablative therapy, 75.9 mCi on 07/09/2020 HPI: Doing well. Denies significant problems. No chest pain palpitations feelings of anxiousness. Denies dysphagia. Denies any weight gain. Data Reviewed: Most recent labs Ref. 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 Plan: TSH needs more suppression. Recommend increasing Synthroid to 200 mcg daily. Recheck in 6 to 8 weeks. Encourage patient to call should she feel she is not tolerating this dose. Total Time Spent: 6 minutes Zion Nugent MD documented in this encounter [facility] 09-08-2022 Miscellaneous Notes Formattin g of this note might be different from the original. Lab orders faxed to [place] per patient request. documented in this encounter [facility] 06-10-2022 Note HNO ID: [id number] Author: Zion Nugent MD Service: ? Author Type: Physician Type: Progress Notes Filed: 06/10/2022 3:16 PM Note Text: AMBULATORY TELEPHONE VISIT Katalina Hutchins has consented to this telephone encounter. 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 Patient received I-131 ablative therapy, 75.9 mCi on 07/09/2020 HPI: Doing well. Denies significant problems. No chest pain palpitations feelings of anxiousness. Denies dysphagia. Data Reviewed: Most recent labs Ref. 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 Plan: Labs okay with the exception of TSH. Patient states that she had ran out of her prescription will be for so this is not reliable. Recommend continue the current dose and recheck in 3 months. Otherwise patient is doing well. Thyroglobulin remains undetectable. Total Time Spent: 7 minutes Zion Nugent MD [facility] 06-10-2022 History of Presen t illness Narrative AMBULATORY TELEPHONE VISIT Katalina Hutchins has consented to this telephone encounter. 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 Patient received I-131 ablative therapy, 75.9 mCi on 07/09/2020 HPI: Doing well. Denies significant problems. No chest pain palpitations feelings of anxiousness. Denies dysphagia. Data Reviewed: Most recent labs Ref. 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 Plan: Labs okay with the exception of TSH. Patient states that she had ran out of her prescription will be for so this is not reliable. Recommend continue the current dose and recheck in 3 months. Otherwise patient is doing well. Thyroglobulin remains undetectable. Total Time Spent: 7 minutes Zion Nugent MD documented in this encounter [facility] 06-02-2022 Note HNO ID: [id number] Author: Zion Nugent MD Service: ? Author Type: Physician Type: Progress Notes Filed: 06/03/2022 1:41 PM Note Text: AMBULATORY TELEPHONE VISIT Left message. [facility] 06-02-2022 History of Presen t illness Narrative AMBULATORY TELEPHONE VISIT Left message. documented in this encounter [facility] 04-16-2022 Miscellaneous Notes Formattin g of this note might be different from the original. Levothyroxine refill request received from [facility] pharmacy via fax. Order pending your approval. Dr. Victoria will you please sign this pended script in Dr. Nugent's absence as patient is out of medication. I called Katalina to verify she is taking her medication every day. She states she has been out for a few days. I reviewed with her the importance of taking her medication daily as prescribed. She states she will do better at taking her meds every day. She is scheduled for lab work and follow up the end of May. Dr. Nugent ok to keep follow up phone visit as scheduled? Kaitlynn Carreon LPN documented in this encounter [facility] 02-04-2022 History of Presen t illness Narrative AMBULATORY TELEPHONE VISIT Persons Present: Did not get a hold of patient.(error) I did get a hold of pt by phone. 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 Patient received I-131 ablative therapy, 75.9 mCi on 07/09/2020 HPI: Doing well. Denies significant problems. No chest pain palpitations feelings of anxiousness. Denies dysphagia. Data Reviewed: Most recent labs Ref. 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 Plan: Given mixed results with T4 T3 and TSH plan to hold current dose. Recheck 2 to 3 months. Total Time Spent:6 minutes Zion Nugent MD documented in this encounter [facility] 11-05-2021 History of Presen t illness Narrative AMBULATORY TELEPHONE VISIT Persons Present: Did not get a hold of patient. 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 Patient received I-131 ablative therapy, 75.9 mCi on 07/09/2020 HPI: Doing well. Denies significant problems. No chest pain palpitations feelings of jitteriness etc. Denies dysphagia. Data Reviewed: Most recent labs Ref. 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 Plan: TSH level much improved however still little higher than I would like however given her elevated T4 level plan to keep patient at her current dose and recheck in 2 to 3 months. Total Time Spent:6 minutes Zion Nugent MD documented in this encounter [facility] 10-16-2021 History of Presen t illness Narrative Unless she has immediate concerns or questions okay to push out 2 months AMBULATORY TELEPHONE VISIT Persons Present: Did not get a hold of patient. 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 Patient received I-131 ablative therapy, 75.9 mCi on 07/09/2020 HPI: left message for pt to call back Data Reviewed: Most recent labs Ref. 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 Plan: TSH level much improved however still little higher than I would like however given her elevated T4 level plan to keep patient at her current dose and recheck in 2 to 3 months. Total Time Spent: 0 minutes Zion Nugent MD documented in this encounter [facility] Evaluation note Diagnosis Thyroid cancer (HCC)- Primary Malignant neoplasm of thyroid gland [facility] Diagnosis Thyroid cancer (HCC)- Primary Malignant neoplasm of thyroid gland documented in this encounter [facility] note* Diagnosis Thyroid cancer (HCC)- Primary Malignant neoplasm of thyroid gland documented in this encounter [facility] note* Diagnosis Thyroid cancer (HCC)- Primary Malignant neoplasm of thyroid gland [facility] [facility]* Diagnosis Thyroid cancer (HCC)- Primary Malignant neoplasm of thyroid gland documented in this encounter [facility] note* Diagnosis 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 Thyroid cancer (HCC) Malignant neoplasm of thyroid gland documented in this encounter [facility] note* Diagnosis History of thyroid cancer- Primary Personal history of malignant neoplasm of thyroid documented in this encounter [facility] note* Diagnosis Acute non-recurrent sinusitis of other sinus- Primary documented in this encounter [facility] Summary Purpose Family History No Family History Records FoundNo Family History Records FoundNo Family History Records Found Advance Directives No Advanced Directives Records FoundNo Advanced Directives Records FoundNo Advanced Directives Records Found Additional Source Comments Source Comments (unrecognize d section and content) In the event this informatio n is protected by the Federal Confidentiality of Alcohol and Drug Abuse Patient Records regulations: The Federal rules restrict any use of the information to criminally investigate or prosecute any alcohol or drug abuse patient.[facility] the event this information is protected by the Federal Confidentiality of Alcohol and Drug Abuse Patient Records regulations: The Federal rules restrict any use of the information to criminally investigate or prosecute any alcohol or drug abuse patient.[facility] the event this information is protected by the Federal Confidentiality of Alcohol and Drug Abuse Patient Records regulations: The Federal rules restrict any use of the information to criminally investigate or prosecute any alcohol or drug abuse patient.[facility] the event this information is protected by the Federal Confidentiality of Alcohol and Drug Abuse Patient Records regulations: The Federal rules restrict any use of the information to criminally investigate or prosecute any alcohol or drug abuse patient.[facility] the event this information is protected by the Federal Confidentiality of Alcohol and Drug Abuse Patient Records regulations: The Federal rules restrict any use of the information to criminally investigate or prosecute any alcohol or drug abuse patient.[facility]In the event this information is protected by the Federal Confidentiality of Alcohol and Drug Abuse Patient Records regulations: The Federal rules restrict any use of the information to criminally investigate or prosecute any alcohol or drug abuse patient.[facility]In the event this information is protected by the Federal Confidentiality of Alcohol and Drug Abuse Patient Records regulations: The Federal rules restrict any use of the information to criminally investigate or prosecute any alcohol or drug abuse patient.[facility]In the event this information is protected by the Federal Confidentiality of Alcohol and Drug Abuse Patient Records regulations: The Federal rules restrict any use of the information to criminally investigate or prosecute any alcohol or drug abuse patient.[facility]In the event this information is protected by the Federal Confidentiality of Alcohol and Drug Abuse Patient Records regulations: The Federal rules restrict any use of the information to criminally investigate or prosecute any alcohol or drug abuse patient.[facility]In the event this information is protected by the Federal Confidentiality of Alcohol and Drug Abuse Patient Records regulations: The Federal rules restrict any use of the information to criminally investigate or prosecute any alcohol or drug abuse patient.[facility]In the event this information is protected by the Federal Confidentiality of Alcohol and Drug Abuse Patient Records regulations: The Federal rules restrict any use of the information to criminally investigate or prosecute any alcohol or drug abuse patient.[facility] HospitalIn the event this information is protected by the Federal Confidentiality of Alcohol and Drug Abuse Patient Records regulations: The Federal rules restrict any use of the information to criminally investigate or prosecute any alcohol or drug abuse patient.[facility] HospitalIn the event this information is protected by the Federal Confidentiality of Alcohol and Drug Abuse Patient Records regulations: The Federal rules restrict any use of the information to criminally investigate or prosecute any alcohol or drug abuse patient.[facility] HospitalIn the event this information is protected by the Federal Confidentiality of Alcohol and Drug Abuse Patient Records regulations: The Federal rules restrict any use of the information to criminally investigate or prosecute any alcohol or drug abuse patient.[facility] HospitalIn the event this information is protected by the Federal Confidentiality of Alcohol and Drug Abuse Patient Records regulations: The Federal rules restrict any use of the information to criminally investigate or prosecute any alcohol or drug abuse patient.[facility] HospitalIn the event this information is protected by the Federal Confidentiality of Alcohol and Drug Abuse Patient Records regulations: The Federal rules restrict any use of the information to criminally investigate or prosecute any alcohol or drug abuse patient.[facility] Reason for Visit (unrecogniz ed section and content) Reason Comments Follow Up Specialty Diagnoses / Procedures Referred By Contac t Referred To Contact Radiation Oncology / RADIATION ONCOLOGY Diagnoses phone visit after labs [phone] labs drawn at [facility] Procedures PROVIDER SPECIALTY PHONE CALL Zion Nugent MD [address] [place] [address] [place] [address] Zion Nugent MD [address] [facility] [place] [address] Referral ID Status Reason Start Date Expiration Date V isits Requested Visits Authorized [id number] Pending Review 09/29/2021 12/28/2021 99 99 Reason Comments Thyroid Cancer Reason Comments Established Patient Reason Onset Date Comments Refill Request 04/16/2022 Reason Comments Orders faxed Reason Onset Date Comments Future Appointment 11/18/2022 Reason Onset Date Comments Refill Request 01/03/2023 Reason Comments Appointment Confirmation Reason Onset Date Comments Refill Request 05/04/2023 Care Teams (unrecognized sec tion and content) High Speed Printer Operator Relationship Specialty Start Date End Date Katalina Colbert CNP PCP - General Family Practice 11/26/14 Zion Nugent MD [address] [facility] [place] [address] Radiation Oncology 05/28/20 High Speed Printer Operator Relationship [facility]ty Start Date [facility] - General Family Medicine 11/26/14 Zion Nugent MD [address] [facility] [place] [place] [address] Radiation Oncology 05/28/20 High Speed Printer Operator Relationship Specialty Start Date End [facility] - General Family Medicine 11/26/14 Zion Nugent MD [address] [place] [address] Radiation Oncology 05/28/20 High Speed Printer Operator Relationship Specialty Start Date End Date AlphonseKatalina guerrier CNP PCP - General Family Medicine 11/26/14 Zion Nugent MD [address] [facility] [place] [address] Radiation Oncology 05/28/20 High Speed Printer Operator Relationship Specialty Start Date End [facility] PCP - General Family Medicine 11/26/14 Zion Nugent MD [address] [facility] [place] [address] Radiation Oncology 05/28/20 High Speed Printer Operator Relationship Specialty Start Date End [facility] PCP - General Family Medicine 11/26/14 Zion Nugent MD [address] [facility] [place] [address] Radiation Oncology 05/28/20 High Speed Printer Operator Relationship Specialty Start Date End [facility] PCP - General Family Medicine 11/26/14 Zion Nugent MD [address] [facility] [place] [address] Radiation Oncology 05/28/20 High Speed Printer Operator Relationship Specialty Start Date End Date Katalina Colbert DIGITAL DIRECTOR PCP - General Family Medicine 11/26/14 Zion Nugent MD [address] [facility] [place] [address] Radiation Oncology 05/28/20 High Speed Printer Operator Relationship Specialty Start Date End Date Katalina Colbert CNP PCP - General Family Medicine 11/26/14 Zion Nugent MD [address] [facility] [place] [address] Radiation Oncology 05/28/20 High Speed Printer Operator Relationship Specialty Start Date End Date Katalina Colbert CNP PCP - General Family Medicine 11/26/14 Zion Nugent MD [address] [facility] [place] [address] Radiation Oncology 05/28/20 High Speed Printer Operator Relationship Specialty Start Date End Date Kervin Stevens MD [address] [place] [id number] PCP - General Family Medicine 06/01/23 Katalina Colbert NP [address] [place] [phone] Nurse Practitioner Family Medicine 03/06/23 INFORMATION SOURCE (unrecogn ized section and content) DATE CREATED AUTHOR 10/17/2022 [facility] DATE CREATED AUTHOR AUTHOR'S ORGANIZ ATION 03/28/2023 [facility] DATE CREATED AUTHOR AUTHOR'S ORGANIZ ATION 06/11/2023 [facility] d[facility] Specialists EPIC FOR RECORDS PERTAINING TO PATIENTS WHO ARE OR HAVE BEEN ENROLLED IN A CHEMICAL DEPENDENCY/SUBSTANCEABUSE PROGRAM, SOME INFORMATION MAY BE OMITTED. This clinical summary was aggregated from multiple sources. Caution should be exercised in using it in the provision of clinical care. This summary normalizes information from multiple sources, and as a consequence, information in this document may materially change the coding, format and clinical context of patient data. In addition, data may be omitted in some cases. CLINICAL DECISIONS SHOULD BE BASED ON THE PRIMARY CLINICAL RECORDS. [id number]. provides no warranty or guarantee of the accuracy or completeness of information in this document.
[2023-07-28 17:44] LABS: Thyroid Stimulating Hormone 0.656 uIU/mL (0.358-3.740)
[2023-07-30 04:10] LABS: Triiodothyronine (T3) 128 ng/dL (71-180)
[2023-08-07 04:06] LABS: Thyroglobulin (TG-RIA) <2.0 ng/mL (.)
== END 2023-07-28 16:50 | disposition home or self-care (01) ==
LOC: LAB 16:49
PROVIDERS: PCP Nurse Practitioner; Visit Provider Radiology Radiation Oncology
DX: Z85.850 Personal history of malignant neoplasm of thyroid (principal)
CPT/HCPCS: 36415; 84432; 84436; 84443; 84480

== ENCOUNTER 2023-12-07 12:15 | Outpatient (OUT) | payer OTHER, SELFPAY ==
--- OUTSIDE RECORDS SUMMARY | 2023-12-07 12:36 | XMS_ITS | CCD ---
Author Organization [facility] Inform ion Partnership [facility] Care Team Providers Care 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 Name Role Phone FilemonKatalina Catina Primary Care Provider Aiccaritoz TARIK, Katalina Catina Primary Care Provider Zion Nugent MD Unavailable Aicholz GAS DISTRIBUTION AND EMERGENCY CLERK, Katalina Catina Primary Care Provider [phone] Zion Nugent MD Unavailable Aicholz GAS DISTRIBUTION AND EMERGENCY CLERK, Katalina Catina Primary Care Provider [phone] Aicholz GAS DISTRIBUTION AND EMERGENCY CLERK, Katalina Catina Primary Care Provider Zion Nugent MD Unavailable DR WILLY NUGENT Consulting Unavailable AICHHOLZ, GAS DISTRIBUTION AND EMERGENCY CLERK KATALINA Primary Care Unavailable DR WILLY NUGENT Attending Unavailable DR WILLY NUGENT Admitting Unavailable JOSE ALEJANDRO Herlinda, KAYLA Consulting Unavailable DR GEN CERVANTES Attending UnavailDR GEN Hoover Admitting Unavailabl e AICHHOLZ, GAS DISTRIBUTION AND EMERGENCY CLERK KATALINA Primary Care Unavailable Deonna Espino Consulting Unavailable DORENE Pate, YULIYA Consulting Unavailable AICHHOLZ, GAS DISTRIBUTION AND EMERGENCY CLERK KATALINA Consulting Unavailable AICHHOLZ, GAS DISTRIBUTION AND EMERGENCY CLERK KATALINA Primary Care Unavailable AICHHOLZ, GAS DISTRIBUTION AND EMERGENCY CLERK KATALINA Attending Unavailable AICHHOLZ, GAS DISTRIBUTION AND EMERGENCY CLERK KATALINA Admitting Unavailable AICHHOLZ, GAS DISTRIBUTION AND EMERGENCY CLERK KATALINA Consulting Unavailable AICHHOLZ, GAS DISTRIBUTION AND EMERGENCY CLERK KATALINA Primary Care Unavailable AICHHOLZ, GAS DISTRIBUTION AND EMERGENCY CLERK KATALINA Attending Unavailable AICHHOLZ, GAS DISTRIBUTION AND EMERGENCY CLERK KATALINA Admitting Unavailable AICHHOLZ, GAS DISTRIBUTION AND EMERGENCY CLERK KATALINA Consulting Unavailable AICHHOLZ, GAS DISTRIBUTION AND EMERGENCY CLERK KATALINA Primary Care Unavailable AICHHOLZ, GAS DISTRIBUTION AND EMERGENCY CLERK KATALINA Attending Unavailable AICHHOLZ, GAS DISTRIBUTION AND EMERGENCY CLERK KATALINA Admitting Unavailable DR JILL EDWARDS Consulting Unavailable PINO, DR WILLY Marlow Consulting Unavailable AICHHOLZ, GAS DISTRIBUTION AND EMERGENCY CLERK KATALINA Primary Care Unavailable DR WILLY NUGENT Attending Unavailable PINO, DR WILLY Marlow Admitting Unavailable AICHHOLZ, GAS DISTRIBUTION AND EMERGENCY CLERK KATALINA Consulting Unavailable AICHHOLZ, GAS DISTRIBUTION AND EMERGENCY CLERK KATALINA Attending Unavailable AICHHOLZ, GAS DISTRIBUTION AND EMERGENCY CLERK KATALINA Admitting Unavailable DR WILLY NUGENT Consulting Unavailable AICHHOLZ, GAS DISTRIBUTION AND EMERGENCY CLERK KATALINA Primary Care Unavailable PINO, DR WILLY Marlow Attending Unavailable DR WILLY NUGENT Admitting Unavailable AICHHOLZ, GAS DISTRIBUTION AND EMERGENCY CLERK KATALINA Consulting Unavailable AICHHOLZ, GAS DISTRIBUTION AND EMERGENCY CLERK KATALINA Primary Care Unavailable AICHHOLZ, GAS DISTRIBUTION AND EMERGENCY CLERK KATALINA Attending Unavailable AICHHOLZ, GAS DISTRIBUTION AND EMERGENCY CLERK KATALINA Admitting Unavailable AICHHOLZ, GAS DISTRIBUTION AND EMERGENCY CLERK KATALINA Consulting Unavailable AICHHOLZ, GAS DISTRIBUTION AND EMERGENCY CLERK KATALINA Primary Care Unavailable AICHHOLZ, GAS DISTRIBUTION AND EMERGENCY CLERK KATALINA Attending Unavailable AICHHOLZ, GAS DISTRIBUTION AND EMERGENCY CLERK KATALINA Admitting Unavailable AICHHOLZ, KATALINA Attending Unavailable Aichholz HAND CARVER, Katalina Unavailable Kervin Stevens MD Primary Care Provider AICHHOLZ, KATALINA CATINA Primary Care Unavailable Zion NUGENT Attending Unavailable AICHHOLZ, KATALINA CATINA Primary Care Unavailable Zion NUGENT Attending Unavailable Zion NUGENT Attending Unavailable Zion NUGENT Referring Unavailable AICHHOLZ, KATALINA CATINA Primary Care Unavailable AICHHOLZ, KTAALINA CATINA Primary Care Unavailable Zion NUGENT Attending Unavailable AICHHOLZ, KATALINA CATINA Primary Care Unavailable Zion NUGENT Attending Unavailable AICHHOLZ, KATALINA CATINA Primary Care Unavailable Zion NUGENT Attending Unavailable YSABEL TATE Attending Unavailable [facility]ERVIN Referring Unavailable [facility] K[facility]IN Primary Care Unavailable JUSTINS LATOSHA E Admitting Unavailable ROOSEVELTILLILATOSHA Suazo Attending Unavailable ROOSEVELTILLIS LATOSHA E Referring Unavailable NADERER, KERVIN Primary Care Unavailable LIV AZAR Attending Unavailable NADNERIR, KERVIN Primary Care Unavailable GRILLIS, LATOSHA E Attending Unavailable GRILLIS, LATOSHA E Referring Unavailable NADERER, KERVIN Primary Care Unavailable Allergies Allergy Classification Reported Allergen(s) Allergy Type Date of Onset Reaction(s) Facility (20 sources) Adhesive agent; Translations: [ADHESIVE] Drug Allergy 05-11-2012 [facility] (1 source) Desonide Drug Allergy [facility] (3 sources) Latex; Translations: [LATEX] Drug allergy (disorder) 08-29-2018 [facility] Medications Current Medications Medication Drug Class(es) Dates Sig (Normalized) Sig (Original) amoxicillin 875 mg / clavulanate 125 mg oral tablet (1 source) Penicillin-class Antibacterial Start: 07-07-2023 End: 07-17-2023 take 1 tablet by mouth in the morning amoxicillin-clavu lanate (Augmentin) 875-125 MG tablet Indications: Acute non-recurrent sinusitis of other sinus Take 1 tablet (875 mg) by mouth in the morning and 1 tablet (875 mg) before bedtime. Do all this for 10 days. Take with food. 20 tablet 0 07/07/2023 07/17/2023 Active cetirizine hydrochloride 10 mg oral tablet (20 sources) Histamine-1 Receptor Antagonist Start: 07-04-2023 End: 10-02-2023 take 1 tablet by mouth in the morning cetirizine (ZyrTEC) 10 MG tablet Indications: Allergic rhinitis, unspecified seasonality, unspecified trigger Take 1 tablet (10 mg) by mouth in the morning. 90 tablet 1 07/04/2023 10/02/2023 Active Comment on above: Take 10 mg by mouth once daily. DULoxetine 60 mg delayed release oral capsule (20 sources) Serotonin and Norepinephrine Reuptake Inhibitor Start: 05-03-2023 take 1 capsule by mouth in the morning DULoxetine (Cymbalta) [address] capsule Take 1 capsule by mouth in the morning. 0 05/03/2023 Active Start: 09-13-2020 DULoxetine (CY MBALTA) 30 mg capsule take 1 capsule by mo ut once daily DULoxetine 60 mg capsule Take [...] mout h once daily. q 24 HR. 3 ml insulin lispro 100 unt/ml pen injector (1 source) Insulin Analog Start: 04-03-2023 insulin lispro (HumaLOG) 100 UNIT/ML injection Inject 1 Units under the skin in the morning and 1 Units at noon and 1 Units in the evening. Inject with meals. INJECT 15-20-25 UNITS ACCORDING TO MEAL SIZE PLUS ISS #3 (MAX DAILY DOSE OF 100 UNITS) . 0 04/03/2023 Active losartan potassium 100 mg oral tablet (18 sources) Angiotensin 2 Receptor Janell Start: 04-11-2023 take 1 tablet by mouth in the morning losartan (Cozaar) 100 MG tablet Take 1 tablet by mouth in the morning. 0 04/11/2023 Active Start: 05-01-2018 losartan (COZA AR) 50 mg tablet q 24 HR. 0 05/01/2018 Active Comment on above: q 24 HR. Mounjaro 5 MG/0.5ML solution pen-injector (1 source) Start: 05-04-2023 Mounjaro 5 MG/ 0.5ML solution pen-injector Inject 1 Syringe under the skin 1 (one) time per week 0 05/04/2023 Active Completed/Discontinued Medications Medication Drug Class(es) Dates Sig (Normalized) Sig (Original) acetaminophen 325 mg / HYDROcodone bitartrate 5 mg oral tablet (7 sources) Opioid Agonist Start: 12-12-2012 take 1 tablet by mouth every eight hours as needed HYDROcodone-acet aminophen 5-325 mg per tablet Take 1 tablet by mouth every 8 hours as needed for Pain. 40 tablet 0 12/12/2012 Active Comment on above: Take 1 tablet by lukas th every 8 hours as needed for Pain. aspirin 81 mg chewable tablet (20 sources) Platelet Aggregation Inhibitor, Nonsteroidal Anti-inflammatory Drug take 1 tablet by mouth once daily aspirin (BABY ASPIRIN) 81 mg chewable tablet Take 81 mg by mouth once daily. 0 Active take 1 tablet by mouth in the mo rning aspirin (ASPIR) 81 MG EC tablet Take 1 tablet by mouth in the morning. 0 Active Comment on above: Take 81 mg by mouth once daily. cholecalciferol 0.025 mg oral tablet (20 sources) Vitamin D take 1 tablet by mouth once daily Cholecalciferol, Vitamin D3, (VITAMIN D) 1,000 unit Tab Take 1,000 Units by mouth once daily. 0 Active take 1 capsule by mouth in the [facility] cholecalciferol (Vitamin D-3) 25 MCG (1000 UT) capsule Take 1 capsule by mouth in the morning. 0 Active Comment on above: Take 1,000 Units by mouth once daily. Doxycycline (7 sources) Tetracycline-class Drug take 500 mg by mouth once daily DOXYCYCLINE HYCLATE ORAL Take 500 mg by mouth once daily. 0 Active Comment on above: Take 500 mg by mouth once daily. Ethinyl Estradiol / norgestimate (7 sources) Progestin, Estrogen Norgestimate -Ethiny l Estradiol (TRI-SPRINTEC) 0.18/0.215/0.25 mg-35 mcg (28) Tab Take by mouth. 0 Active Comment on above: Take by mouth. furosemide 20 mg oral tablet (7 sources) Loop Diuretic Start: 2 take 3 tablets by mouth once daily furosemide (LASIX) 20 mg tablet Take 3 tablets by mouth once daily. 0 05/11/2012 Active Comment on above: Take 3 tablets by [facility] once daily. GLUCOSAMINE/CHONDROIT IN SULF A (GLUCOSAMINE-CHONDROI TIN ORAL) (7 sources) GLUCOSAMINE/BRIDGER AMADO ITIN SULF A (GLUCOSAMINE-CHONDR OITIN ORAL) Take by mouth. 0 Active Comment on above: Take by mouth. ibuprofen 200 mg oral tablet (18 sources) Nonsteroidal Anti-inflammatory Drug take 1 tablet by mouth every six hours as needed ibuprofen (MOTRIN) 200 mg tablet Take 200 mg by mouth every 6 hours as needed. 0 Active take 1 tablet by lukas th twice daily as needed ibuprofen 800 MG tablet Take 1 tablet by mouth 2 (two) times a day as needed 0 Active Comment on above: Take 200 mg by mouth every 6 hours as needed. 3 ml insulin glargine 100 unt/ml pen injector (18 sources) Insulin Analog Start: 05-01-2018 insulin glargine [...] Insulin 100 unit/mL (3 mL) subcutaneous pen levothyroxine sodium 0.2 mg oral tablet (20 sources) l-Thyroxine Start: 09-10-19 End: 09-05-19 take 1 tablet by mouth once daily levothyroxine (SYNTHROID) 200 mcg tablet Take 1 tablet by mouth once daily. 30 tablet 3 09/05/2023 Active Start: 07-01-2021 End: 11-23-2022 take 1 [...] 1 tablet by lukas th once daily. metFORMIN hydrochloride 1000 mg oral tablet (18 sources) Biguanide Start: 05-01-20 18 End: 09-10-19 24 take 1 tablet by mouth twice daily metFORMIN (GLUCOPHAGE) 1,000 mg tablet metformin 1,000 mg tablet Take 1 tablet twice a day by oral route for 90 days. 0 05/01/2018 Active Comment on above: metformin 1,000 mg t ablet Take 1 tablet twice a day by oral route for 90 days. metFORMIN hydrochloride 1000 mg / SITagliptin 50 mg oral tablet (7 sources) Biguanide, Dipeptidyl Peptidase 4 Inhibitor Start: 05-11-20 12 take 1 tablet by mouth twice daily at mealtime sitaGLIPtin-metFORMI N (JANUMET) 50-1,000 mg per tablet Take 1 tablet [...] 1 tablet by lukas th once daily. Kgkxx-0-LFM-EPA-Fish Oil 1,200 (144-216) mg cap (7 sources) Ljrna-7-SKH-EPA- Fish Oil 1,200 (144-216) mg cap Take [...] times daily. simvastatin 5 mg oral tablet (18 sources) HMG-CoA Reductase Inhibitor Start: 05-01-20 18 simvastatin (ZOCOR) 5 mg tablet q 24 HR. 0 05/01/2018 Active Comment on above: q 24 HR. tiZANidine 4 mg oral tablet (18 sources) Central alpha-2 Adrenergic Agonist Start: 09-15-19 End: 08-04-19 24 tiZANidine (ZANAFLEX) 4 mg tablet Problems Active Problems Problem Classification Problem Date Documented Da te Episodic/Chronic Anxiety disorders (1 source) Mixed anxiety and depressive disorder; Translations: [Anxiety disorder, unspecified] Onset: 06-09-2023 06-09-2023 Chronic Cancer of thyroid (20 sources) Malignant tumor of thyroid gland; Translations: [Malignant neoplasm of thyroid gland] Onset: 06-04-2020 Chronic Cancer; other and unspecified primary (1 source) [...] (primary) hypertension] Onset: 06-09-2023 06-09-2023 Chronic Other and unspecified benign neoplasm (1 source) Polyp of colon; Translations: [Polyp of colon] Onset: 09-27-2023 Episodic Other nutritional; endocrine; and metabolic disorders (4 sources) Hypercalcemia; Translations: [HYPERCALCEMIA] Onset: 02-18-2022 Chronic Other nutritional; endocrine; and metabolic disorders (1 source) Body mass index 40+ - severely obese; Translations: [Body mass index (BMI) 45.0-49.9, adult] Onset: 06-09-2023 06-09-2023 Chronic Other screening for suspected conditions (not mental disorders or infectious disease) (5 sources) Encounter for screening mammogram for malignant neoplasm of breast; Translations: [Encounter for screening for malignant neoplasm of colon] Onset: 04-27-2022 Episodic Other upper respiratory disease (1 source) Allergic rhinitis; Translations: [Allergic rhinitis, unspecified] Onset: 07-04-2023 07-04-2023 Chronic Other upper respiratory infections (6 sources) Acute pharyngitis, unspecified; Translations: [Streptococcal pharyngitis] Onset: 06-20-2022 Episodic Residual codes; unclassified (1 source) Bilateral lower limb edema; Translations: [Localized edema] Onset: 06-12-2023 06-12-2023 Episodic Residual codes; unclassified (2 sources) Family history of malignant neoplasm of digestive organs; Translations: [Family history of malignant neoplasm of digestive organs] Onset: 09-13-2023 Episodic Substance-related disorders (1 source) Nicotine dependence, cigarettes, uncomplicated; Translations: [NICOTINE DEPEND CIGARETTES UNCOMP] Onset: 06-22-2022 Chronic Unclassified (3 sources) CONTACT W/AND (SUSP) EXPOS COVID-19; Translations: [CONTACT W/AND (SUSP) EXPOS COVID-19] Onset: 02-04-2022 Unclassified (1 source) Colon Cancer Screening Onset: 09-13-2023 Unclassified (1 source) family history of colon cancer Onset: 09-27-2023 Past or Other Problems Problem Classification Problem Date Documented Da te Episodic/Chronic Cancer of thyroid (2 sources) History of malignant neoplasm of thyroid; Translations: [Personal history of malignant neoplasm of thyroid] Onset: 03-24-2023 03-24-2023 Episodic Other aftercare (1 source) intermediate manager (current) use of aspirin; Translations: [SENIOR CARE CURRENT USE OF ASPIRIN] Onset: 06-22-2022 Episodic Other aftercare (1 source) Other intermediate frame tender (current) drug therapy; Translations: [OTH SCREW MACHINE REPAIRER CURRENT DRUG THERAPY] Onset: 06-22-2022 Episodic Other aftercare (1 source) detention (current) use of oral hypoglycemic drugs; Translations: [SENIOR CARE USE ORAL HYPOGLYCEMIC DX] Onset: 06-22-2022 Episodic Other aftercare (1 source) intermediate manager (current) use of insulin; Translations: [SCREW MACHINE REPAIRER CURRENT USE OF INSULIN] Onset: 06-01-2022 Episodic Other connective tissue disease (20 sources) Biceps tendinitis; Translations: [Bicipital tendinitis, unspecified shoulder] Onset: 11-23-2012 11-23-2012 Episodic Residual codes; unclassified (1 source) Acquired [...] Test Name Value Interpretation Reference Range Facility Glucose Glucometer (BldC) [M ass/Vol]on 09-27-2023 Glucose [Mass/Vol] 169 mg/dL High 65-99 [facility] Surgical Pathologyon 024 Surgical Pathology Normal [facility] Comment on above: Result Comment: [facility] [address] [place] [address] Surgical Pathology Consultation Patient Name:KATALINA HUTCHINS:1965 (Age: 58)Gender:FTaken:09/27/2023eported:09/29/2023hysician(s):Latosha Corbett D.O. ([phone])Copy To: Rec. #:[id number]: #[id number] Final Pathologic Diagnosis Transverse colon polyp: Tubular adenoma fragments. Report Electronically Signed Out st/09/29/2023Bee Montalvo MD Interpretation performed at [facility] [place], [address] [place], [address], License number: [id number]. Clinical History Family history of colon cancer. Gross Description Received in formalin labeled evan HUTCHINS is a single medellin strip of soft tissue, 1.1 cm in greatest dimension. Filtered and submitted in a single cassette. (1, ns, [id number], m7) MG mjg/09/27/2023NSK Specimen(s) Received Transverse colon polyp Fee Codes(s): 1; 58929 Ness 08-04-2023 CNPN Telephone ([facility]) KATALINA HUTCHINS ([id number]) 1965 F Date Time Provider Department 08/04/23 Zion NUGENT During your visit today, we recorded the following information about you: Argenis Harris, SHAYLA 08/04/2023 12:00 PM Signed Spoke to pt as thyroglobulin is not back yet from [place]. They are unsure when it will result. PSS- please change phone visit to Tuesday, 08/08 at 3:30pm. Thank you Kobi Hammonds 08/04/2023 1:01 PM Signed Changed appt Allergies As of Date: 08/04/2023 Noted Allergy Reaction ADHESIVE 05/11/2012 2 - Rash Date Reviewed: 09/16/2020 Reviewed by: Kaitlynn Carreon ([employer]), RN - Fully Assessed Reason for Visit: Future Appointment [256] Prescriptions as of 08/08/2023 - levothyroxine (SYNTHROID) 200 mcg tablet Take [...] mouth once daily. Facility-Administered Medications as of 08/08/2023 - NaCl 0.9% iv infusion - diphenhydrAMINE 50 mg injection (BENADRYL) - hydrocortisone sodium succinate 100 mg injection (Solu-CORTEF) - EPINEPHrine 1 mg/mL (1 mL) 0.3 mg injection - sodium chloride 0.9 % (flush) 10-20 mL (BD POSIFLUSH) - heparin 100 unit/mL 500 Units injection - sodium chloride 0.9 % (flush) 10-20 mL (BD POSIFLUSH) Problem List As Of Date 08/04/2023 Noted Resolved Rotator cuff (capsule) sprain [S43.429A] 08/07/2012 Cervicalgia [M54.2] 08/07/2012 Bicipital tendinitis [M75.20] 11/23/2012 Thyroid cancer (HCC) [C73] 06/04/2020 Encounter Status:Closed by ARGENIS HARRIS on 08/08/23 [facility] HUTCHINS ([id number]) 1965 F Date Time Provider Department 03/24/23 Zion NUGENT During your visit today, we recorded the following information about you: Kobi Hammonds 03/24/2023 3:26 PM Signed Mailed patient her lab tests she gets elsewere and scheudled appt for her Zion Nugent MD [facility] Nurse [place]; Kobi Hammonds See patient back or televisit 4 months with labs Allergies As of Date: 03/24/2023 Noted Allergy Reaction ADHESIVE 05/11/2012 2 - Rash Date Reviewed: 09/16/2020 Reviewed by: Kaitlynn Carreon ([employer]) RN - Fully Assessed Reason for Visit: Appointment Confirmation [[id number]] Prescriptions as of 03/25/2023 - levothyroxine (SYNTHROID) [...] cancer (HCC) [C73] 06/04/2020 Encounter Status:Closed by KOBI HAMMONDS on 03/25/23 [facility] Ness 11-18-2022 [facility] Telephone ([facility]) KATALINA HUTCHINS ([id number]) 1965 F Date Time Provider Department 11/18/22 Zion NUGENT During your visit today, we recorded the following information about you: Argenis Harris RN 11/18/2022 1:46 PM Signed Call placed to pt due to not having labs prior to phone visit with Dr Nugent. LM requesting she CB to reschedule after she Is able to have labs. Argenis Harris RN Allergies As of Date: 11/18/2022 Noted Allergy Reaction ADHESIVE 05/11/2012 2 - Rash Date Reviewed: 09/16/2020 Reviewed by: Kaitlynn [employer]) SHAYLA Carreon - Fully Assessed Reason for [...] cancer (HCC) [C73] 06/04/2020 Encounter Status:Closed by ARGENIS HARRIS on 11/24/22 Normal [facility] CBC AUTO DIFFon 10-12-2022 BASO # 0.1 103/ul Normal 0.0-0.1 [facility] Comment on above: Performed By: #### C BC #### [facility] [address] [place] [address] Dr. Karena Montero Basophils/100 WBC (Bld) 0.8 % Normal 0.2-2.0 [facility] Comment on above: Performed By: #### C BC #### [facility] [address] [place] [address] Dr. Karena Montero EO # 0.2 103/ul Normal 0.0-0.7 [facility] Comment on above: Performed By: #### C BC #### [facility] [address] [place] [address] Dr. Karena Montero Eosinophils/100 WBC (Bld) 2.5 % Normal 0.9-7.0 [facility] Comment on above: Performed By: #### C BC #### [facility] [address] [place] [address] Dr. Karena Montero Erythrocyte distribution width (RBC) [Ratio] 14.5 % Normal 11.0-15.0 [facility] Comment on above: Performed By: #### C BC #### [facility] [address] [place] [address] Dr. Karena Montero Hematocrit (Bld) [Volume fraction] 42.9 % Normal 36.0-48.0 [facility] Comment on above: Performed By: #### C BC #### [facility] [address] [place] [address] Dr. Karena Montero Hemoglobin (Bld) [Mass/Vol] 14.3 g/dL Normal 12.0-16.0 [facility] Comment on above: Performed By: #### C BC #### [facility] [address] [place] [address] Dr. Karena Montero IG # 0.02 10e3/ul Normal 0.00-0.03 [facility] Comment on above: Performed By: #### C BC #### [facility] [address] [place] [address] Dr. Karena Montero IG % 0.3 % Normal 0.0-0.5 [facility] Comment on above: Performed By: #### C BC #### [facility] [address] [place] [address] Dr. Karena Montero LYMPH # 1.6 103/ul Normal 1.2-3.8 [facility] Comment on above: Performed By: #### C BC #### [facility] [address] [place] [address] Dr. Karena Montero Lymphocytes/100 WBC (Bld) 27.2 % Normal 20.5-60.0 [facility] Comment on above: Performed By: #### C BC #### [facility] [address] [place] [address] Dr. Karena Montero MANUAL DIFF REQ NO Normal [facility] Comment on above: Performed By: #### C BC #### [facility] [address] [place] [address] Dr. Karena Montero MCH (RBC) [Entitic mass] 28.9 pg Normal 26.7-34.0 [facility] Comment on above: Performed By: #### C BC #### [facility] [address] [place] [address] Dr. Karena Montero MCHC (RBC) [Mass/Vol] 33.3 g/dL Normal 29.9-35.2 [facility] Comment on above: Performed By: #### C BC #### [facility] [address] [place] [address] Dr. Karena Montero MCV (RBC) [Entitic vol] 86.8 fL Normal 81.0-99.0 [facility] Comment on above: Performed By: #### C BC #### [facility] [address] [place] [address] Dr. Karena Montero MONO # 0.5 103/ul Normal 0.3-0.8 [facility] Comment on above: Performed By: #### C BC #### [facility] [address] [place] [address] Dr. Karena Montero Monocytes/100 WBC (Bld) 8.5 % Normal 1.7-12.0 [facility] Comment on above: Performed By: #### C BC #### [facility] [address] [place] [address] Dr. Karena Montero NEUT # 3.7 103/ul Normal 1.4-6.5 [facility] Comment on above: Performed By: #### C BC #### [facility] [address] [place] [address] Dr. Karena Montero Neutrophils/100 WBC (Bld) 60.7 % Normal 43.0-75.0 [facility] Comment on above: Performed By: #### C BC #### [facility] [address] [place] [address] Dr. Karena Montero Platelet mean volume (Bld) [Entitic vol] 10.2 fL Normal 9.5-13.5 [facility] Comment on above: Performed By: #### C BC #### [facility] [address] [place] [address] Dr. Karena Montero PLT 214 103/ul Normal 150-450 [facility] Comment on above: Performed By: #### C BC #### [facility] [facility] [address] [place] [address] Dr. Karena Montero RBC 4.94 106/ul Normal 4.20-5.40 [facility] Comment on above: Performed By: #### C BC #### [facility] [address] [place] [address] Dr. Karena Montero WBC 6.0 103/ul Normal 4.0-11.0 [facility] Comment on above: Performed By: #### C BC #### [facility] [address] [place] [address] Dr. Karena Montero GLYCOHEMOGLOBIN A1Con 2022 ADA RECOMMENDATION SEE BELOW Normal [facility] Comment on above: Result Comment: ADA RECOMMENDED LIMIT 4.0 - 6.0 ADA THERAPEUTIC TARGET < 7.0 ACTION SUGGESTED > 7.0 Performed By: #### C BC #### [facility] [address] [place] [address] Dr. Karena Montero Glucose [Mass/Vol] 292 mg/dL Normal [facility] Comment on above: Performed By: #### C BC #### [facility] [address] [place] [address] Dr. Karena Montero HbA1c (Bld) [Mass fraction] 11.8 % Critically high 4.5-6.2 [facility] Comment on above: Performed By: #### C BC #### [facility] [address] [place] [address] Dr. Karena Montero LIPID PROFILEon 10-12-2022 CHOL-HDL RATIO NORM SEE BELOW Normal [facility] Comment on above: Result Comment: 3.3 - 4.4 LOW RISK 4.4 - 7.1 AVERAGE RISK 7.1 - 11.0 MODERATE RISK >11.0 HIGH RISK Performed By: #### C BC #### [facility] [address] [place], [place] [address] Dr. Karena Montero Cholesterol [Mass/Vol] 199 mg/dL Normal <=200 [facility] Comment on above: Performed By: #### C BC #### [facility] [address] [place], [place] [address] Dr. Karena Montero Cholesterol in HDL [Mass/Vol] 63 mg/dL Critically high 40-60 [facility] Comment on above: Performed By: #### C BC #### [facility] [address] [place] [address] [address] Karena Montero Cholesterol in LDL [Mass/Vol] 119.8 mg/dL Normal [facility] Comment on above: Performed By: #### C BC #### [facility] [address] [place] [address] [address] Karena Montero Cholesterol.total/Ch olesterol in HDL [Mass ratio] 3.2 {ratio} Normal [facility] Comment on above: Performed By: #### C BC #### [facility] [address] [place] [address] [address] Karena Montero HDL NORMAL > or = 60 mg/dl - LO W CARDIOVASCULAR RISK <40 mg/dl - HIGH CARDIOVASCULAR RISK Normal [facility] Comment on above: Performed By: #### C BC #### [facility] [address] [place] [address] [address] Karena Montero LDL CALC NORMAL SEE BELOW Normal [facility] Comment on above: Result Comment: <100 mg/dl OPTIMAL 100 - 129 mg/dl NEAR OR ABOVE OPTIMAL 130 - 159 mg/dl BORDERLINE HIGH 160 - 189 mg/dl HIGH >190 mg/dl VERY HIGH Performed By: #### C BC #### [facility] [address] [place] [address] [address] Karena Montero Triglyceride [Mass/Vol] 81 mg/dL Normal <=150 [facility] Comment on above: Performed By: #### C BC #### [facility] [address] [place] [address] [address] Karena Montero VLDL CALC 16.2 mg/dL Normal [facility] Comment on above: Performed By: #### C BC #### [facility] [address] [place] [address] Dr. Karena Montero MICROALBUMIN, RAND URon mALB 4.5 mg/L Normal <=30.0 [facility] Comment on above: Performed By: #### M ALBR #### [facility] [address] [place] [address] Dr. Karena Montero PROF 14(COMP METB)on 023 Albumin [Mass/Vol] 3.3 g/dL Critically low 3.4-5.0 [facility] e [facility] Comment on above: Performed By: #### C BC #### [facility] [address] [place] [address] Dr. Karena Montero Albumin/Globulin [Mass ratio] 0.7 {ratio} Normal [facility] Comment on above: Performed By: #### C BC #### [facility] [address] [place] [address] Dr. Karena Montero ALP [Catalytic activity/Vol] 45 U/L Critically low 46-116 [facility] Comment on above: Performed By: #### C BC #### [facility] [address] [place] [address] Dr. Karena Montero ALT [Catalytic activity/Vol] 46 U/L Normal 14-59 [facility] Comment on above: Performed By: #### C BC #### [facility] [address] [place] [address] Dr. Karena Montero Anion gap [Moles/Vol] 12.5 mmol/L Normal [facility] Comment on above: Performed By: #### C BC #### [facility] [address] [place] [address] Dr. Karena Montero AST [Catalytic activity/Vol] 50 U/L Critically high 15-37 [facility] Comment on above: Performed By: #### C BC #### [facility] [address] [place] [address] Dr. Karena Montero Bilirubin [Mass/Vol] 0.9 mg/dL Normal 0.2-1.0 [facility] Comment on above: Performed By: #### C BC #### [facility] [address] [place] [address] [address] Karena Montero Calcium [Mass/Vol] 9.5 mg/dL Normal 8.5-10.1 [facility] Comment on above: Performed By: #### C BC #### [facility] [address] [place] [address] [address] Karena Montero Chloride [Moles/Vol] 102 mmol/L Normal 98-107 [facility] Comment on above: Performed By: #### C BC #### [facility] [address] [place] [address] [address] Karena Montero CO2 [Moles/Vol] 29.4 mmol/L Normal 21.0-32.0 [facility] Comment on above: Performed By: #### C BC #### [facility] [address] [place] [address] Dr. Karena Montero Creatinine [Mass/Vol] 0.89 mg/dL Normal 0.55-1.02 [facility] Comment on above: Performed By: #### C BC #### [facility] [address] [place] [address] Dr. Karena Montero EGFR-AF LIBYAN >60 Normal >=60 [facility] Comment on above: Performed By: #### C BC #### [facility] [address] [place] [address] Dr. Karena Montero EGFR-NON AF LIBYAN >60 Normal >=60 [facility] Comment on above: Performed By: #### C BC #### [facility] [address] [place] [address] Dr. Karena Montero Globulin (S) [Mass/Vol] 4.6 g/dL Normal [facility] Comment on above: Performed By: #### C BC #### [facility] [address] [place] [address] Dr. Karena Montero Glucose [Mass/Vol] 163 mg/dL Critically high 74-106 [facility] Comment on above: Performed By: #### C BC #### [facility] [address] [place] [address] [address] Karena Montero Potassium [Moles/Vol] 4.9 mmol/L Normal 3.5-5.1 [facility] Comment on above: Performed By: #### C BC #### [facility] [address] [place] [address] [address] Karena Montero Protein [Mass/Vol] 7.9 g/dL Normal 6.4-8.2 [facility] Comment on above: Performed By: #### C BC #### [facility] [address] [place] [address] [address] Karena Montero Sodium [Moles/Vol] 139 mmol/L Normal 136-145 [facility] Comment on above: Performed By: #### C BC #### [facility] [address] [place] [address] Dr. Karena Montero Urea nitrogen [Mass/Vol] 11.0 mg/dL Normal 7.0-18.0 [facility] Comment on above: Performed By: #### C BC #### [facility] [address] [place] [address] Dr. Karena Montero Urea nitrogen/Creatinine [Mass ratio] 12.4 mg/mg Normal [facility] Comment on above: Performed By: #### C BC #### [facility] [address] [place] [address] Dr. Karena Montero UA RANDOM W/MICROSCOPICon BACTERIA TRACE Abnormal NONE SEEN [facility] Comment on above: Performed By: #### M RUBY #### [facility] [address] [place] [address] Dr. Karena Montero Bilirubin Ql (U) Negative Normal NEGATIVE [facility] Comment on above: Performed By: #### M RUBY #### [facility] [address] [place] [address] Dr. Karena Montero CAST SEEN Abnormal NONE SEEN [facility] Comment on above: Performed By: #### M RUBY #### [facility] [address] [place] [address] Dr. Karena Montero Clarity (U) CLEAR Normal CLEAR [facility] Comment on above: Performed By: #### M RUBY #### [facility] [address] [place] [address] [address] Karena Montero Color (U) YELLOW Normal YELLOW [facility] Comment on above: Performed By: #### M RUBY #### [facility] [address] [place] [address] [address] Karena Montero Crystals LM Nom (Urine sed) NONE SEEN Normal NONE SEEN [facility] Comment on above: Performed By: #### M RUBY #### [facility] [address] [place] [address] [address] Karena Montero Epithelial cells LM Ql (Urine sed) RARE Normal NONE SEEN /RARE [facility] Comment on above: Performed By: #### M RUBY #### [facility] [address] [place] [address] [address] Karena Montero Glucose Ql (U) Negative Normal NEGATIVE [facility] Comment on above: Performed By: #### M RUBY #### [facility] [address] [place] [address] [address] Karena Montero Hemoglobin Ql (U) Negative Normal NEGATIVE [facility] Comment on above: Performed By: #### M RUBY #### [facility] [address] [place] [address] [address] Karena Montero HYALINE CAST RARE Normal [facility] Comment on above: Performed By: #### M RUBY #### [facility] [address] [place] [address] [address] Karena Montero Ketones Ql (U) Negative Normal NEGATIVE [facility] Comment on above: Performed By: #### M RUBY #### [facility] [address] [place] [address] [address] Karena Montero LEUKOCYTES SMALL Abnormal NEGATIVE [facility] Comment on above: Performed By: #### M RUBY #### [facility] [address] [place] [address] [address] Karena Montero MUCOUS NONE SEEN Normal NONE SEEN [facility] Comment on above: Performed By: #### M RUBY #### [facility] [address] [place] [address] [address] Karena Montero Nitrite Ql (U) Negative Normal NEGATIVE [facility] Comment on above: Performed By: #### M RUBY #### [facility] [address] [place] [address] Dr. Karena Montero pH (U) 5.0 [pH] Normal 5-9 [facility] Comment on above: Performed By: #### M RUBY #### [facility] [address] [place] [address] Dr. Karena Montero RBC 0-2 Normal 0-2 [facility] Comment on above: Performed By: #### M RUBY #### [facility] [address] [place] [address] Dr. Karena Montero SPEC GRAVITY >=1.030 Abnormal 1.005-<=1.025 [facility] Comment on above: Performed By: #### M RUBY #### [facility] [address] [place] [address] Dr. Karena Montero UA PROTEIN TRACE Normal NEGATIVE/ TRACE [facility] Comment on above: Performed By: #### M RUBY #### [facility] [address] [place] [address] Dr. Karena Montero Urobilinogen Qn (U) 4 {Emily'U}/dL Abnormal 0.2 - 1.0 [facility] Comment on above: Performed By: #### M RUBY #### [facility] [address] [place] [address] Dr. Karena Montero WBC 10-20 Abnormal NONE SEEN [facility] Comment on above: Performed By: #### M RUBY #### [facility] [address] [place] [address] Dr. Karena Montero T3, TOTAL (TRIIODOTHYRONINE) on 09-10-2022 T3, TOTAL 92 ng/dL Normal 71-180 [facility] Comment on above: Performed By: #### C BC #### [facility] [address] [place] [address] Dr. Karena Arzola 09-08-2022 TARIKN Telephone ([employer]) KATALINA HUTCHINS ([id number]) 1965 F Date Time Provider Department 09/08/22 [place] NUGENT During your visit today, we recorded the following information about you: Darlin Willett Kimberly [facility] 09/08/2022 12:49 PM Signed Lab orders faxed to [facility] per patient request. Allergies As of Date: 09/08/2022 Noted Allergy Reaction ADHESIVE 05/11/2012 2 - Rash Date Reviewed: 09/16/2020 Reviewed by: Kaitlynn (Gagandeep) SHAYLA Carreon - Fully Assessed Reason for Visit: Orders [...] cancer (HCC) [C73] 06/04/2020 Encounter Status:Closed by DARLIN MUNOZ on 09/08/22 Normal [facility] T4on 09-08-2022 T4 [Mass/Vol] 11.70 ug/dL Normal 4.80-13.90 [facility] Comment on above: Performed By: #### T 4, TSH #### [facility] [address] [place] [address] [address] Karena Montero TSHon 09-08-2022 TSH 10.637 uIU/mL Critically high 0.358-3.740 [facility] Comment on above: Performed By: #### T 4, TSH #### [facility] [address] [place] [address] [address] NECK ST W CONon [address] W CON EXAM TYPE: [...] DEONNA ESPINO Date: 2022-06-20 22:08 Normal [facility] CBC AUTO DIFFon 06-20-2022 BASO # 0.1 103/ul Normal 0.0-0.1 [facility] Comment on above: Performed By: #### T 4, TSH #### [facility] [address] [place] [address] Dr. Karena Montero Basophils/100 WBC (Bld) 0.9 % Normal 0.2-2.0 [facility] Comment on above: Performed By: #### T 4, TSH #### [facility] [address] [place] [address] [address] Karena Montero EO # 0.1 103/ul Normal 0.0-0.7 [facility] Comment on above: Performed By: #### T 4, TSH #### [facility] [address] [place] [address] [address] Karena Montero Eosinophils/100 WBC (Bld) 0.5 % Critically low 0.9-7.0 [facility] Comment on above: Performed By: #### T 4, TSH #### [facility] [address] [place] [address] [address] Karena Montero Erythrocyte distribution width (RBC) [Ratio] 13.8 % Normal 11.0-15.0 [facility] Comment on above: Performed By: #### T 4, TSH #### [facility] [address] [place] [address] Dr. Karena Montero Hematocrit (Bld) [Volume fraction] 39.7 % Normal 36.0-48.0 [facility] Comment on above: Performed By: #### T 4, TSH #### [facility] [address] [place] [address] Dr. Karena Montero Hemoglobin (Bld) [Mass/Vol] 13.7 g/dL Normal 12.0-16.0 [facility] Comment on above: Performed By: #### T 4, TSH #### [facility] [address] [place] [address] Dr. Karena Montero IG # 0.06 10e3/ul Critically high 0.00-0.03 [facility] Comment on above: Performed By: #### T 4, TSH #### [facility] [address] [place] [address] Dr. Karena Montero IG % 0.6 % Critically high 0.0-0.5 [facility] Comment on above: Performed By: #### T 4, TSH #### [facility] [address] [place] [address] Dr. Karena Montero LYMPH # 2.0 103/ul Normal 1.2-3.8 [facility] Comment on above: Performed By: #### T 4, TSH #### [facility] [address] [place] [address] Dr. Karena Montero Lymphocytes/100 WBC (Bld) 19.1 % Critically low 20.5-60.0 [facility] Comment on above: Performed By: #### T 4, TSH #### [facility] [address] [place] [address] Dr. Karena Montero MANUAL DIFF REQ NO Normal [facility] Comment on above: Performed By: #### T 4, TSH #### [facility] [address] [place] [address] Dr. Karena Montero MCH (RBC) [Entitic mass] 28.8 pg Normal 26.7-34.0 [facility] Comment on above: Performed By: #### T 4, TSH #### [facility] [address] [place] [address] Dr. Karena Montero MCHC (RBC) [Mass/Vol] 34.5 g/dL Normal 29.9-35.2 [facility] Comment on above: Performed By: #### T 4, TSH #### [facility] [address] [place] [address] Dr. Karena Montero MCV (RBC) [Entitic vol] 83.4 fL Normal 81.0-99.0 [facility] Comment on above: Performed By: #### T 4, TSH #### [facility] [address] [place] [address] Dr. Karena Montero MONO # 0.9 103/ul Critically high 0.3-0.8 [facility] Comment on above: Performed By: #### T 4, TSH #### [facility] [address] [place] [address] Dr. Karena Montero Monocytes/100 WBC (Bld) 8.2 % Normal 1.7-12.0 [facility] Comment on above: Performed By: #### T 4, TSH #### [facility] [address] [place] [address] Dr. Karena Montero NEUT # 7.5 103/ul Critically high 1.4-6.5 [facility] Comment on above: Performed By: #### T 4, TSH #### [facility] [address] [place] [address] Dr. Karena Montero Neutrophils/100 WBC (Bld) 70.7 % Normal 43.0-75.0 [facility] Comment on above: Performed By: #### T 4, TSH #### [facility] [address] [place] [address] Dr. Karena Montero Platelet mean volume (Bld) [Entitic vol] 10.5 fL Normal 9.5-13.5 [facility] Comment on above: Performed By: #### T 4, TSH #### [facility] [address] [place] [address] Dr. Karena Montero PLT 253 103/ul Normal 150-450 [facility] Comment on above: Performed By: #### T 4, TSH #### [facility] [address] [place] [address] Dr. Karena Montero RBC 4.76 106/ul Normal 4.20-5.40 [facility] Comment on above: Performed By: #### T 4, TSH #### [facility] [address] [place] [address] Dr. Karena Montero WBC 10.6 103/ul Normal 4.0-11.0 [facility] Comment on above: Performed By: #### T 4, TSH #### [facility] [address] [place] [address] Dr. Karena Montero CULTURE BLOODon 06-20-2022 Microscopic examination of blood, culture Culture Observations: NO GROWTH AT 5 DAYS. Normal [facility] Comment on above: Performed By: #### T 4, TSH #### [facility] [address] [place] [address] Dr. Karena Montero Microscopic examination of blood, culture Culture Observations: NO GROWTH AT 5 DAYS. Normal [facility] Comment on above: Performed By: #### T 4, TSH #### [facility] [address] [place] [address] Dr. Karena Montero LACTATE/LACTIC ACIDon 2022 Lactate [Moles/Vol] 1.5 mmol/L Normal 0.4-1.9 [facility] Comment on above: Performed By: #### T 4, TSH #### [facility] [address] [place] [address] Dr. Karena Montero MONOon 06-20-2022 Monocytes (Bld) [#/Vol] Negative Normal NEGATIVE [facility] Comment on above: Performed By: #### M RUBY #### [facility] [address] [place] [address] Dr. Karena Montero PROF 14(COMP METB)on 023 Albumin [Mass/Vol] 3.1 g/dL Critically low 3.4-5.0 [facility] Comment on above: Performed By: #### C MP #### [facility] [address] [place] [address] Dr. Karena Montero Albumin/Globulin [Mass ratio] 0.6 {ratio} Normal [facility] Comment on above: Performed By: #### C MP #### [facility] [address] [place] [address] [address] Karena Montero ALP [Catalytic activity/Vol] 47 U/L Normal 46-116 [facility] Comment on above: Performed By: #### C MP #### [facility] [address] [place] [address] Dr. Karena Montero ALT [Catalytic activity/Vol] 20 U/L Normal 14-59 [facility] Comment on above: Performed By: #### C MP #### [facility] [address] [place] [address] Dr. Karena Montero Anion gap [Moles/Vol] 11.1 mmol/L Normal [facility] Comment on above: Performed By: #### C MP #### [facility] [address] [place] [address] Dr. Karena Montero AST [Catalytic activity/Vol] 24 U/L Normal 15-37 [facility] Comment on above: Performed By: #### C MP #### [facility] [address] [place] [address] Dr. Karena Montero Bilirubin [Mass/Vol] 1.5 mg/dL Critically high 0.2-1.0 [facility] Comment on above: Performed By: #### C MP #### [facility] [address] [place] [address] Dr. Karena Montero Calcium [Mass/Vol] 9.4 mg/dL Normal 8.5-10.1 [facility] Comment on above: Performed By: #### C MP #### [facility] [address] [place] [address] Dr. Karena Montero Chloride [Moles/Vol] 94 mmol/L Critically low 98-107 [facility] Comment on above: Performed By: #### C MP #### [facility] [address] [place] [address] Dr. Karena Montero CO2 [Moles/Vol] 27.9 mmol/L Normal 21.0-32.0 [facility] Comment on above: Performed By: #### C MP #### [facility] [address] [place] [address] Dr. Karena Montero Creatinine [Mass/Vol] 0.85 mg/dL Normal 0.55-1.02 [facility] Comment on above: Performed By: #### C MP #### [facility] [address] [address] [address] Karena Montero EGFR-AF LIBYAN >60 Normal >=60 [facility] Comment on above: Performed By: #### C MP #### [facility] [address] [place] [address] Dr. Karena Montero EGFR-NON AF LIBYAN >60 Normal >=60 [facility] Comment on above: Performed By: #### C MP #### [facility] [address] [place] [address] Dr. Karena Montero Globulin (S) [Mass/Vol] 5.3 g/dL Normal [facility] Comment on above: Performed By: #### C MP #### [facility] [address] [place] [address] Dr. Karena Montero Glucose [Mass/Vol] 204 mg/dL Critically high 74-106 [facility] Comment on above: Performed By: #### C MP #### [facility] [address] [place] [address] Dr. Karena Montero Potassium [Moles/Vol] 3.0 mmol/L Critically low 3.5-5.1 [facility] Comment on above: Performed By: #### C MP #### [facility] [address] [place] [address] Dr. Karena Montero Protein [Mass/Vol] 8.4 g/dL Critically high 6.4-8.2 [facility] Comment on above: Performed By: #### C MP #### [facility] [address] [place] [address] Dr. Karena Montero Sodium [Moles/Vol] 130 mmol/L Critically low 136-145 [facility] Comment on above: Performed By: #### C MP #### [facility] [address] [address] [address] Karena Montero Urea nitrogen [Mass/Vol] 10.0 mg/dL Normal 7.0-18.0 [facility] Comment on above: Performed By: #### C MP #### [facility] [address] [address] [address] Karena Montero Urea nitrogen/Creatinine [Mass ratio] 11.8 mg/mg Normal [facility] Comment on above: Performed By: #### C MP #### [facility] [address] [place] [address] Dr. Karena Montero STREPT SCREENon 06-20-2022 STREP SCREEN A Positive Abnormal NEGATIVE [facility] Comment on above: Performed By: #### C BC #### [facility] [address] [place] [address] Dr. Karena Montero THYROGLOBULIN AB AND THYROGL OBULINon 05-29-2022 Thyroglobulin Antibody <1.0 Normal 0.0-0.9 [facility] Comment on above: Result Comment: Thyr oglobulin Antibody measured by Ewa Reynolds Methodology Performed By: #### T HYGIMA #### [facility] [address] [place] [address] Dr. Karena Montero Thyroglobulin by ZACK <0.1 Critically low 1.5-38.5 [facility] Comment on above: Result Comment: Acco rding [...] Assay Performed By: #### T HYGIMA #### [facility] [address] [place] [address] Dr. Karena Montero T3, TOTAL (TRIIODOTHYRONINE) on 05-28-2022 T3, TOTAL 77 ng/dL Normal 71-180 [facility] Comment on above: Performed By: #### C BC #### [facility] [address] [address] [address] Karena Montero GLYCOHEMOGLOBIN A1Con 2021 ADA RECOMMENDATION SEE BELOW Normal [facility] Comment on above: Result Comment: ADA RECOMMENDED LIMIT 4.0 - 6.0 ADA THERAPEUTIC TARGET < 7.0 ACTION SUGGESTED > 7.0 Performed By: #### T 4, TSH #### [facility] [address] [address] [address] Karena Montero Glucose [Mass/Vol] 252 mg/dL Normal [facility] Comment on above: Performed By: #### T 4, TSH #### [facility] [address] [address] [address] Karena Montero HbA1c (Bld) [Mass fraction] 10.4 % Critically high 4.5-6.2 [facility] Comment on above: Performed By: #### T 4, TSH #### [facility] [address] [address] [address] Karena Montero PROF CHEM 8 (BAS METB)on Anion gap [Moles/Vol] 11.2 mmol/L Normal [facility] Comment on above: Performed By: #### C BC #### [facility] [address] [place] [address] Dr. Karena Montero Calcium [Mass/Vol] 9.2 mg/dL Normal 8.5-10.1 [facility] Comment on above: Performed By: #### C BC #### [facility] [address] [place] [address] Dr. Karena Montero Chloride [Moles/Vol] 98 mmol/L Normal 98-107 [facility] Comment on above: Performed By: #### C BC #### [facility] [address] [place] [address] Dr. Karena Montero CO2 [Moles/Vol] 30.4 mmol/L Normal 21.0-32.0 [facility] Comment on above: Performed By: #### C BC #### [facility] [address] [place] [address] Dr. Karena Montero Creatinine [Mass/Vol] 0.99 mg/dL Normal 0.55-1.02 [facility] Comment on above: Performed By: #### C BC #### [facility] [address] [place] [address] Dr. Karena Montero EGFR-AF LIBYAN >60 Normal >=60 [facility] Comment on above: Performed By: #### C BC #### [facility] [address] [address] [address] Karena Montero EGFR-NON AF LIBYAN 58 mL/min/1.73m2 Critically low >=60 [facility] Comment on above: Performed By: #### C BC #### [facility] [address] [place] [address] Dr. Karena Montero Glucose [Mass/Vol] 274 mg/dL Critically high 74-106 [facility] Comment on above: Performed By: #### C BC #### [facility] [address] [place] [address] Dr. Karena Montero Potassium [Moles/Vol] 3.6 mmol/L Normal 3.5-5.1 [facility] Comment on above: Performed By: #### C BC #### [facility] [address] [place] [address] Dr. Karena Montero Sodium [Moles/Vol] 136 mmol/L Normal 136-145 [facility] Comment on above: Performed By: #### C BC #### [facility] [address] [place] [address] Dr. Karena Montero Urea nitrogen [Mass/Vol] 13.0 mg/dL Normal 7.0-18.0 [facility] Comment on above: Performed By: #### C BC #### [facility] [address] [place] [address] Dr. Karena Montero Urea nitrogen/Creatinine [Mass ratio] 13.1 mg/mg Normal [facility] Comment on above: Performed By: #### C BC #### [facility] [address] [place] [address] Dr. Karena Montero T4on 05-27-2022 T4 [Mass/Vol] 11.00 ug/dL Normal 4.80-13.90 [facility] Comment on above: Performed By: #### C BC #### [facility] [address] [address] [address] Karena Montero TSHon 05-27-2022 TSH 35.436 uIU/mL Critically high 0.358-3.740 [facility] Comment on above: Performed By: #### C BC #### [facility] [address] [address] [address] Karena Montero MG MAMM SCREEN 3D FRANCI CADon 04-27-2022 MG MAMM SCREEN 3D FRANCI CAD Patient: KATALINA HUTCHINS Exam Date: 04/27/2022 : 1965 Gender:F Ordering : TARIK KATALINAJamie [facility] Admission #: [id number] Family : Order #: [id number] CLICK HERE TO VIEW EXAM RADIOLOGY REPORT [...] uterine cancer at age 28. LOCATION: [facility] BREAST COMPOSITION: Scattered areas fibroglandular density. FINDINGS: [...] PALPABLE LUMP SHOULD BE BIOPSIED. Dictated by: Jill Edwards M.D. on 04/28/2022 at 12:08 Approved by: Jill Edwards M.D. on 04/28/2022 at 12:11 Normal [facility] PTH INTACTon 02-20-2022 PTH, Intact 11 pg/mL Critically low 15-65 [facility] Comment on above: Performed By: #### T 4, TSH #### [facility] [address] [place], [place] [address] Dr. Karena Montero VIT D 25-OH [facility]on 2021 Vitamin D, 25-Hydroxy 43.2 ng/mL Normal 30.0-100.0 [facility] Comment on above: Result Comment: Yvonne min D deficiency has been defined by the Liberal of Medicine and an Endocrine Society practice guideline as a level of serum 25-OH vitamin D less than 20 ng/mL (1,2). The Endocrine Society went on to further define vitamin D insufficiency as a level between 21 and 29 ng/mL (2). 1. IOM (Liberal of Medicine). 2010. Dietary reference intakes for calcium and D. [place]: The National AcademAppbistro Press. 2. eHrminia MF, Jean Marie W[place], Leigh LOYOLA, et al. Evaluation, treatment, and prevention of vitamin D deficiency: an Endocrine Society clinical practice guideline. JCEM. 2010; 96(7):1911-30. Performed By: #### M RUBY #### [facility] [address] [address] [address] Karena Montero CALCIUMon 02-18-2022 Calcium [Mass/Vol] 9.8 mg/dL Normal 8.5-10.1 [facility] Comment on above: Performed By: #### M RUBY #### [facility] [address] [id number] Karena Montero Covid-19 PCR (CVDTBH)on 01-06 SARS-CoV-2 (COVID-19) RNA RADHA+probe Ql (Unsp spec) Not detected Normal NOT DETECTED [facility] Comment on above: Result Comment: This test is not yet approved or cleared by the [place] FDA. When there are no FDA-approved or cleared tests available, and other criteria are met, FDA can make tests available under an emergency access mechanism called an Emergency Use Authorization (EUA). The EUA for this test is supported by the Cloth Examiner of Health and Human Service's (HHS's) declaration [...] consistent with SARS-CoV-2. Performed By: #### M RBUY #### [facility] [address] [place] [address] Dr. Karena Montero MICROALBUMIN URINEon 022 Albumin, Urine 64.2 ug/mL Normal Not Estab. [facility] Comment on above: Performed By: #### M ALBLC #### [facility] [address] [place] [address] Dr. Karena Montero T3, TOTAL (TRIIODOTHYRONINE) on 01-30-2022 T3, TOTAL 101 ng/dL Normal 71-180 [facility] Comment on above: Performed By: #### T 4, TSH #### [facility] [address] [place] [address] Dr. Karena Montero T4 [facility] 01-30-2022 T4 [Mass/Vol] 12.3 ug/dL Critically high 4.5-12.0 [facility] Comment on above: Performed By: #### M RUBY #### [facility] [address] [place] [address] Dr. Karena Montero CBC AUTO DIFFon 01-29-2022 BASO # 0.1 103/ul Normal 0.0-0.1 [facility] Comment on above: Performed By: #### C BC #### [facility] [address] [place] [address] Dr. Karena Montero Basophils/100 WBC (Bld) 1.2 % Normal 0.2-2.0 [facility] Comment on above: Performed By: #### C BC #### [facility] [address] [place] [address] Dr. Karena Montero EO # 0.1 103/ul Normal 0.0-0.7 [facility] Comment on above: Performed By: #### C BC #### [facility] [address] [place] [address] Dr. Karena Montero Eosinophils/100 WBC (Bld) 2.6 % Normal 0.9-7.0 [facility] Comment on above: Performed By: #### C BC #### [facility] [address] [place] [address] Dr. Karena Montero Erythrocyte distribution width (RBC) [Ratio] 14.0 % Normal 11.0-15.0 [facility] Comment on above: Performed By: #### C BC #### [facility] [address] [place] [address] Dr. Karena Montero Hematocrit (Bld) [Volume fraction] 42.7 % Normal 36.0-48.0 [facility] Comment on above: Performed By: #### C BC #### [facility] [address] [place] [address] Dr. Karena Montero Hemoglobin (Bld) [Mass/Vol] 14.4 g/dL Normal 12.0-16.0 [facility] Comment on above: Performed By: #### C BC #### [facility] [address] [place] [address] Dr. Karena Montero IG # 0.01 10e3/ul Normal 0.00-0.03 [facility] Comment on above: Performed By: #### C BC #### [facility] [address] [place] [address] Dr. Karena Montero IG % 0.2 % Normal 0.0-0.5 [facility] Comment on above: Performed By: #### C BC #### [facility] [address] [place] [address] Dr. Karena Montero LYMPH # 1.5 103/ul Normal 1.2-3.8 [facility] Comment on above: Performed By: #### C BC #### [facility] [address] [place] [address] Dr. Karena Montero Lymphocytes/100 WBC (Bld) 34.5 % Normal 20.5-60.0 [facility] Comment on above: Performed By: #### C BC #### [facility] [address] [place] [address] Dr. Karena Montero MANUAL DIFF REQ NO Normal [facility] Comment on above: Performed By: #### C BC #### [facility] [address] [place] [address] Dr. Karena Montero MCH (RBC) [Entitic mass] 29.0 pg Normal 26.7-34.0 [facility] Comment on above: Performed By: #### C BC #### [facility] [address] [place] [address] Dr. Karena Montero MCHC (RBC) [Mass/Vol] 33.7 g/dL Normal 29.9-35.2 [facility] Comment on above: Performed By: #### C BC #### [facility] [address] [place] [address] Dr. Karena Montero MCV (RBC) [Entitic vol] 85.9 fL Normal 81.0-99.0 [facility] Comment on above: Performed By: #### C BC #### [facility] [address] [place] [address] Dr. Karena Montero MONO # 0.4 103/ul Normal 0.3-0.8 [facility] Comment on above: Performed By: #### C BC #### [facility] [address] [place] [address] Dr. Karena Montero Monocytes/100 WBC (Bld) 8.2 % Normal 1.7-12.0 [facility] Comment on above: Performed By: #### C BC #### [facility] [address] [place] [address] Dr. Karena Montero NEUT # 2.3 103/ul Normal 1.4-6.5 [facility] Comment on above: Performed By: #### C BC #### [facility] [address] [place] [address] Dr. Karena Montero Neutrophils/100 WBC (Bld) 53.3 % Normal 43.0-75.0 [facility] Comment on above: Performed By: #### C BC #### [facility] [address] [address] [address] Karena Montero Platelet mean volume (Bld) [Entitic vol] 11.6 fL Normal 9.5-13.5 [facility] Comment on above: Performed By: #### C BC #### [facility] [address] [address] [address] Karena Montero PLT 167 103/ul Normal 150-450 [facility] Comment on above: Performed By: #### C BC #### [facility] [address] [address] [address] Karena Montero RBC 4.97 106/ul Normal 4.20-5.40 [facility] Comment on above: Performed By: #### C BC #### [facility] [address] [place] [address] Dr. Karena Montero WBC 4.3 103/ul Normal 4.0-11.0 [facility] Comment on above: Performed By: #### C BC #### [facility] [address] [place] [address] Dr. Karena Montero GLYCOHEMOGLOBIN A1Con 2021 ADA RECOMMENDATION SEE BELOW Normal [facility] Comment on above: Result Comment: ADA RECOMMENDED LIMIT 4.0 - 6.0 ADA THERAPEUTIC TARGET < 7.0 ACTION SUGGESTED > 7.0 Performed By: #### A 1C #### [facility] [address] [place] [address] Dr. Karena Montero Glucose [Mass/Vol] 258 mg/dL Normal [facility] Comment on above: Performed By: #### A 1C #### [facility] [address] [place] [address] Dr. Karena Montero HbA1c (Bld) [Mass fraction] 10.6 % Critically high 4.5-6.2 [facility] Comment on above: Performed By: #### A 1C #### [facility] [address] [place] [address] Dr. Karena Montero LIPID PROFILEon 01-29-2022 CHOL-HDL RATIO NORM SEE BELOW Normal [facility] Comment on above: Result Comment: 3.3 - 4.4 LOW RISK 4.4 - 7.1 AVERAGE RISK 7.1 - 11.0 MODERATE RISK >11.0 HIGH RISK Performed By: #### M RUBY #### [facility] [address] [address] [address] Karena Montero Cholesterol [Mass/Vol] 160 mg/dL Normal <=200 [facility] Comment on above: Performed By: #### M RUBY #### [facility] [address] [address] [address] Karena Montero Cholesterol in HDL [Mass/Vol] 60 mg/dL Normal 40-60 [facility] Comment on above: Performed By: #### M RUBY #### [facility] [address] [address] [address] Karena Montero Cholesterol in LDL [Mass/Vol] 83.0 mg/dL Normal [facility] Comment on above: Performed By: #### M RUBY #### [facility] [address] [address] [address] Karena Montero Cholesterol.total/Ch olesterol in HDL [Mass ratio] 2.7 {ratio} Normal [facility] Comment on above: Performed By: #### M RUBY #### [facility] [address] [address] [address] Karena Montero HDL NORMAL > or = 60 mg/dl - LO W CARDIOVASCULAR RISK <40 mg/dl - HIGH CARDIOVASCULAR RISK Normal [facility] Comment on above: Performed By: #### M RUBY #### [facility] [address] [address] [address] Karena Montero LDL CALC NORMAL SEE BELOW Normal [facility] Comment on above: Result Comment: <100 mg/dl OPTIMAL 100 - 129 mg/dl NEAR OR ABOVE OPTIMAL 130 - 159 mg/dl BORDERLINE HIGH 160 - 189 mg/dl HIGH >190 mg/dl VERY HIGH Performed By: #### M RUBY #### [facility] [address] [address] [address] Karena Montero Triglyceride [Mass/Vol] 85 mg/dL Normal <=150 [facility] Comment on above: Performed By: #### M RUBY #### [facility] [address] [address] [address] Karena Montero VLDL CALC 17.0 mg/dL Normal [facility] Comment on above: Performed By: #### M RUBY #### [facility] [address] [address] [address] Karena Montero PROF 14(COMP METB)on 022 Albumin [Mass/Vol] 3.3 g/dL Critically low 3.4-5.0 [facility] Comment on above: Performed By: #### M RUBY #### [facility] [address] [place] [address] Dr. Karena Montero Albumin/Globulin [Mass ratio] 0.8 {ratio} Normal [facility] Comment on above: Performed By: #### M RUBY #### [facility] [address] [address] [address] Karena Montero ALP [Catalytic activity/Vol] 47 U/L Normal 46-116 [facility] Comment on above: Performed By: #### M RUBY #### [facility] [address] [address] [address] Karena Montero ALT [Catalytic activity/Vol] 39 U/L Normal 14-59 [facility] Comment on above: Performed By: #### M RUBY #### [facility] [address] [address] [address] Karena Montero Anion gap [Moles/Vol] 14.2 mmol/L Normal [facility] Comment on above: Performed By: #### M RUBY #### [facility] [address] [address] [address] Karena Montero AST [Catalytic activity/Vol] 38 U/L Critically high 15-37 [facility] Comment on above: Performed By: #### M RUBY #### [facility] [address] [address] [address] Karena Montero Bilirubin [Mass/Vol] 0.9 mg/dL Normal 0.2-1.0 [facility] Comment on above: Performed By: #### M RUBY #### [facility] [address] [address] [address] Karena Montero Calcium [Mass/Vol] 10.2 mg/dL Critically high 8.5-10.1 [facility] Comment on above: Performed By: #### M RUBY #### [facility] [address] [address] [address] Karena Montero Chloride [Moles/Vol] 99 mmol/L Normal 98-107 [facility] Comment on above: Performed By: #### M RUBY #### [facility] [address] [address] [address] Karena Montero CO2 [Moles/Vol] 28.5 mmol/L Normal 21.0-32.0 [facility] Comment on above: Performed By: #### M RUBY #### [facility] [address] [place] [address] Dr. Karena Montero Creatinine [Mass/Vol] 0.97 mg/dL Normal 0.55-1.02 [facility] Comment on above: Performed By: #### M RUBY #### [facility] [address] [address] [address] Karena Montero EGFR-AF LIBYAN >60 Normal >=60 [facility] Comment on above: Performed By: #### M RUBY #### [facility] [address] [address] [address] Karena Montero EGFR-NON AF LIBYAN 60 mL/min/1.73m2 Normal >=60 [facility] Comment on above: Performed By: #### M RUBY #### [facility] [address] [address] [address] Karena Montero Globulin (S) [Mass/Vol] 4.3 g/dL Normal [facility] Comment on above: Performed By: #### M RUBY #### [facility] [address] [address] [address] Karena Montero Glucose [Mass/Vol] 303 mg/dL Critically high 74-106 [facility] Comment on above: Performed By: #### M RUBY #### [facility] [address] [address] [address] Karena Montero Potassium [Moles/Vol] 3.7 mmol/L Normal 3.5-5.1 [facility] Comment on above: Performed By: #### M RUBY #### [facility] [address] [address] [address] Karena Montero Protein [Mass/Vol] 7.6 g/dL Normal 6.4-8.2 [facility] Comment on above: Performed By: #### M RUBY #### [facility] [address] [address] [address] Karena Montero Sodium [Moles/Vol] 138 mmol/L Normal 136-145 [facility] Comment on above: Performed By: #### M RUBY #### [facility] [address] [place] [address] Dr. Karena Montero Urea nitrogen [Mass/Vol] 13.0 mg/dL Normal 7.0-18.0 [facility] Comment on above: Performed By: #### M RUBY #### [facility] [address] [place] [address] Dr. Karena Montero Urea nitrogen/Creatinine [Mass ratio] 13.4 mg/mg Normal [facility] Comment on above: Performed By: #### M RUBY #### [facility] [address] [address] [address] Karena Montero TSHon 01-29-2022 TSH 6.250 uIU/mL Critically high 0.358-3.740 [facility] Comment on above: Performed By: #### T 4, TSH #### [facility] [address] [place] [address] Dr. Karena Montero UA RANDOM W/MICROSCOPICon BACTERIA NONE SEEN Normal NONE SEEN [facility] Comment on above: Performed By: #### U AMIC #### [facility] [address] [place] [address] Dr. Karena Montero Bilirubin Ql (U) Negative Normal NEGATIVE [facility] Comment on above: Performed By: #### U AMIC #### [facility] [address] [address] [address] Karena Montero CAST NONE SEEN Normal NONE SEEN [facility] Comment on above: Performed By: #### U AMIC #### [facility] [address] [address] [address] Karena Montero Clarity (U) CLEAR Normal CLEAR [facility] Comment on above: Performed By: #### U AMIC #### [facility] [address] [address] [address] Karena Montero Color (U) YELLOW Normal YELLOW [facility] Comment on above: Performed By: #### U AMIC #### [facility] [address] [place] [address] Dr. Karena Montero Crystals LM Nom (Urine sed) NONE SEEN Normal NONE SEEN [facility] Comment on above: Performed By: #### U AMIC #### [facility] [address] [place] [address] Dr. Karena Montero Epithelial cells LM Ql (Urine sed) MODERATE Abnormal NONE SEEN /RARE [facility] Comment on above: Performed By: #### U AMIC #### [facility] [address] [place] [address] Dr. Karena Montero Glucose Ql (U) Negative Normal NEGATIVE [facility] Comment on above: Performed By: #### U AMIC #### [facility] [address] [place] [address] Dr. Karena Montero Hemoglobin Ql (U) Negative Normal NEGATIVE [facility] Comment on above: Performed By: #### U AMIC #### [facility] [address] [place] [address] Dr. Karena Montero Ketones Ql (U) Negative Normal NEGATIVE [facility] Comment on above: Performed By: #### U AMIC #### [facility] [address] [place] [address] Dr. Karena Montero LEUKOCYTES Negative Normal NEGATIVE [facility] Comment on above: Performed By: #### U AMIC #### [facility] [address] [place] [address] Dr. Karena Montero MUCOUS NONE SEEN Normal NONE SEEN [facility] Comment on above: Performed By: #### U AMIC #### [facility] [address] [address] [address] Karena Montero Nitrite Ql (U) Negative Normal NEGATIVE [facility] Comment on above: Performed By: #### U AMIC #### [facility] [address] [address] [address] Karena Montero pH (U) 5.5 [pH] Normal 5-9 [facility] Comment on above: Performed By: #### U AMIC #### [facility] [address] [address] [address] Karena Montero RBC 0-2 Normal 0-2 [facility] Comment on above: Performed By: #### U AMIC #### [facility] [address] [address] [address] Karena Montero SPEC GRAVITY >=1.030 Abnormal 1.005-<=1.025 [facility] Comment on above: Performed By: #### U AMIC #### [facility] [address] [address] [address] Karena Montero UA PROTEIN TRACE Normal NEGATIVE/ TRACE [facility] Comment on above: Performed By: #### U AMIC #### [facility] [address] [address] [address] Karena Montero Urobilinogen Qn (U) 1.0 {Emily'U}/dL Normal 0.2 - 1. 0 [facility] Comment on above: Performed By: #### U AMIC #### [facility] [address] [address] [address] Karena Montero WBC 0-2 Abnormal NONE SEEN [facility] Comment on above: Performed By: #### U AMIC #### [facility] [address] [address] [address] Karena Montero Encounters Encounter Date Encounter Type Care Provider Facility Start: 09-28-2023 End: 09-28-2023 Evaluation and management of inpatient ILV Luis AZAR [facility] Start: 09-27-2023 End: 09-28-2023 Evaluation and management of inpatient LATOSHA CORBETT [facility] Start: 09-13-2023 End: 09-13-2023 ambulatory YSABEL TATE [facility] Start: 09-05-2023 Refill Zion armstrong MD Work Phone: Radiation Oncology Comment on above: Refill Request Start: 08-09-2023 End: 08-10-2023 ambulatory KATALINA CATINA COLBERT Facility:[facility] Start: 08-04-2023 Telephone encounter Zion Nugent MD Work Phone: Radiation Oncology Comment on above: Future Appointment Start: 08-04-2023 ambulatory KATALINA CATINA SLAUGHTERZ Facili ty:[facility] Start: 08-02-2023 ambulatory KATALINA CATINA COLBERT Facili ty:[facility] Start: 07-07-2023 Refill Katalina Filemon HAND CARVER Work Phone: [facility] Comment on above: Acute non-recurrent sinusitis of other sinus (Primary Dx) Start: 06-09-2023 End: 06-09-2023 ambulatory KATALINA PINEDACARITOJaskaran Not Available Start: 05-04-2023 Refill Zion armstrong MD Work Phone: Radiation Oncology Comment on above: Refill Request Start: 03-24-2023 End: 03-25-2023 ambulatory Zion Nugent MD Work Phone: Radiation Oncology Comment on above: History of thyroid c ancer (Primary Dx) Start: 03-24-2023 End: 03-24-2023 Telemedicine consultation with patient Zion Nugent MD Work Phone: [facility] Start: 03-24-2023 Telephone encounter Zion Nugent MD Work Phone: Cancer Appts Comment on above: Appointment Confirma tion Start: 01-03-2023 Refill Michell Soto [facility] Work Phone: [facility] Comment on above: Refill Request Start: 11-18-2022 End: 11-19-2022 ambulatory Zion Nugent MD Work Phone: Radiation Oncology Comment on above: Thymic cancer (HCC) (Primary Dx); Thyroid cancer (HCC) Start: 11-18-2022 End: 11-19-2022 Telemedicine consultation with patient Zion Anthony Nugent MD Work Phone: [facility] Start: 11-18-2022 Telephone encounter Zion Nugent MD Work Phone: Radiation Oncology Comment on above: Future Appointment Start: 10-12-2022 End: 10-13-2022 ambulatory TARIK COLBERT Facility:[facility] Start: 09-09-2022 End: 09-09-2022 ambulatory Zion NUGENT Facility:[facility] Start: 09-09-2022 End: 09-09-2022 ambulatory Zion Nugent MD Work Phone: Radiation Oncology Comment on above: Thyroid cancer (HCC) (Primary Dx) Start: 09-09-2022 End: 09-09-2022 Telemedicine consultation with patient Zion Anthony Nugent MD Work Phone: [facility] Start: 09-08-2022 End: 09-09-[address] WILLY NUGENT Facility:[facility] Start: 09-08-2022 Telephone encounter Zion Nugent MD Work Phone: Hematology/Oncology Comment on above: Orders faxed Start: 09-06-2022 Patient encounter procedure [facility]cf Provider [facility] Department Start: 06-20-2022 End: 06-21-2022 ambulatory KAYLA BLOUNT . Facility:[facility] Start: 06-10-2022 End: 06-10-2022 ambulatory Zion Nugent MD Work Phone: Radiation Oncology Comment on above: Thyroid cancer (HCC) (Primary Dx) Start: 06-10-2022 End: 06-10-2022 Telemedicine consultation with patient Zion Nugent MD Work Phone: [facility] Start: 06-02-2022 End: 06-03-2022 ambulatory Zion Nugent MD Work Phone: Radiation Oncology Comment on above: Thyroid cancer (HCC) (Primary Dx) Start: 06-02-2022 End: 06-03-2022 Telemedicine consultation with patient Zion Nugent MD Work Phone: [facility] Start: 05-27-2022 End: 05-28-[address] WILLY NUGENT Facility:[facility] Start: 04-27-2022 End: 04-28-2022 ambulatory TARIK PINEDAJUANY Facility:[facility] Start: 04-16-2022 Refill Zion armstrong MD Work Phone: Radiation Oncology Comment on above: Refill Request Start: 02-18-2022 End: 02-19-2022 ambulatory TARIK PINEDACARITOJaskaran Facility:[facility] Start: 02-04-2022 End: 02-05-2022 ambulatory Zion Nugent MD Work Phone: Radiation Oncology Comment on above: Thyroid cancer (HCC) (Primary Dx) Start: 02-04-2022 End: 02-05-2022 Telemedicine consultation with patient Zion Nugent MD Work Phone: [facility] Start: 02-03-2022 End: 02-03-2022 ambulatory TARIK PINEDACARITOJaskaran Facility:[facility] Start: 01-29-2022 End: 01-30-[address] WILLY NUGENT Facility:[facility] Start: 11-05-2021 End: 11-05-2021 ambulatory Zion Nugent MD Work Phone: Radiation Oncology Comment on above: Thyroid cancer (HCC) (Primary Dx) Start: 11-05-2021 End: 11-05-2021 Telemedicine consultation with patient Zion Nugent MD Work Phone: [facility] Start: 10-13-2021 End: 10-13-2021 ambulatory Zion Nugent MD Work Phone: Radiation Oncology Comment on above: Thyroid cancer (HCC) (Primary Dx) Start: 10-13-2021 End: 05-10-2022 Telemedicine consultation with patient Zion Anthony Nugent MD Work Phone: [facility] Start: 05-27-2020 End: 05-27-2020 Patient encounter procedure External Provider [facility] Start: 05-27-2020 Results Only External Provider Exter nal-NonCCF Procedures Date Procedure Procedure Detail Performing Clinician Start: 06-09-2023 Microscopic observat ion [Identifier] in Cervix by Cyto stain Katalina Colbert HAND CARVER Work Phone: Start: 05-04-2023 Mammography Katalina bardales HAND CARVER Work Phone: Start: 02-01-2022 Adult depression scr [...] Screening for malign ant neoplasm of cervix [facility] Start: 05-04-2024 Screening for malign ant neoplasm of breast Mammogram [facility] Start: 02-11-2024 DIABETES SCREEN DIABETES SCREEN [facility] Start: 02-11-2024 Diabetes Screening Diabetes Screenin g [facility] Start: 02-05-2024 Influenza vaccination Influenz a Vaccine (Season Ended) [facility] Start: 09-08-2023 End: 09-08-2023 Patient encounter procedure 09/08/2023 6:00 PM EDT Office Visit [facility] [address] [place] [id number] Katalina Colbert NP [address] [place] [id number] [facility] Start: 08-22-2023 Screening for malign ant neoplasm of colon [facility] Start: 08-09-2023 Influenza vaccination Influenza Vacc ine (#1) [facility] Comment on above: Postponed from 02/04 (Other Patient Reasons) Start: 07-25-2023 End: 10-24-2023 THYROGLOBULIN BY MASS SPECTROMETRY THYROGLOBULIN BY MASS SPECTROMETRY Lab Routine History of thyroid cancer Expected: 07/25/2023, Expires: 10/24/[address] [facility] Work Phone: Comment on above: Expected: 07/25/2023 , Expires: 10/24/2023 Start: 07-25-2023 End: 03-24-2024 Thyrotropin [Units/volume] in Serum or Plasma TSH BLD Lab Routine History of thyroid cancer Expected: 07/25/2023, Expires: 03/24/[address] [facility] Work Phone: Comment on above: Expected: 07/25/2023 , Expires: 03/24/2024 Start: 07-25-2023 End: 03-24-2024 Thyroxine (T4) [Mass/volume] in Serum or Plasma T4/THYROXINE BLOOD Lab Routine History of thyroid cancer Expected: 07/25/2023, Expires: 03/24/[address] [facility] Work Phone: Comment on above: Expected: 07/25/2023 , Expires: 03/24/2024 Start: 07-25-2023 End: 03-24-2024 Triiodothyronine (T3) [Mass/volume] in Serum or Plasma T3 BLD Lab Routine History of thyroid cancer Expected: 07/25/2023, Expires: 03/24/[address] [facility] Work Phone: Comment on above: Expected: 07/25/2023 , Expires: 03/24/2024 Start: 06-06-2023 Depression Assessment Depression Ass essment [facility] Start: 02-23-2023 End: 04-25-2023 Thyrotropin [Units/volume] in Serum or Plasma TSH BLD Lab Routine Thyroid cancer (HCC) Expected: 02/23/2023, Expires: 04/25/[address] [facility] Work Phone: Comment on above: Expected: 02/23/2023 , Expires: 04/25/2023 Start: 02-23-2023 End: 04-25-2023 Thyroxine (T4) [Mass/volume] in Serum or Plasma T4/THYROXINE BLOOD Lab Routine Thyroid cancer ([facility]) Expected: 02/23/2023, Expires: 04/25/[address] [facility] Work Phone: Comment on above: Expected: 02/23/2023 , Expires: 04/25/2023 Start: 02-04-2023 Covid-19 Vaccine () Covid-19 Vaccine () [facility] Start: 02-04-2023 Influenza vaccination [facility] Start: 02-01-2023 Adult depression scr eening assessment DEPRESSION SCREENING [facility] Start: 11-09-2022 End: 09-10-2023 Thyrotropin [Units/volume] in Serum or Plasma TSH BLD Lab Routine Thyroid cancer ([facility]) Expected: 11/09/2022, Expires: 09/10/[address] [facility] Work Phone: Comment on above: Expected: 11/09/2022 , Expires: 09/10/2023 Start: 11-09-2022 End: 09-10-2023 Thyroxine (T4) [Mass/volume] in Serum or Plasma T4/THYROXINE BLOOD Lab Routine Thyroid cancer ([facility]) Expected: 11/09/2022, Expires: 09/10/[address] [facility] Work Phone: Comment on above: Expected: 11/09/2022 , Expires: 09/10/2023 Start: 11-09-2022 End: 09-10-2023 Triiodothyronine (T3) [Mass/volume] in Serum or Plasma T3 BLD Lab Routine Thyroid cancer ([facility]) Expected: 11/09/2022, Expires: 09/10/[address] [facility] Work Phone: Comment on above: Expected: 11/09/2022 , Expires: 09/10/2023 Start: 09-28-2022 Adult depression scr eening assessment DEPRESSION SCREENING [facility] Start: 09-08-2022 End: 06-10-2023 Thyrotropin [Units/volume] in Serum or Plasma TSH BLD Lab Routine Thyroid cancer (HCC) Expected: 09/08/2022, Expires: 06/10/[address] [facility] Work Phone: Comment on above: Expected: 09/08/2022 , Expires: 06/10/2023 Start: 09-08-2022 End: 06-10-2023 Thyroxine (T4) [Mass/volume] in Serum or Plasma T4/THYROXINE BLOOD Lab Routine Thyroid cancer (HCC) Expected: 09/08/2022, Expires: 06/10/[address] [facility] Work Phone: Comment on above: Expected: 09/08/2022 , Expires: 06/10/2023 Start: 09-08-2022 End: 06-10-2023 Triiodothyronine (T3) [Mass/volume] in Serum or Plasma T3 BLD Lab Routine Thyroid cancer (HCC) Expected: 09/08/2022, Expires: 06/10/[address] [facility] Work Phone: Comment on above: Expected: 09/08/2022 , Expires: 06/10/2023 Start: 06-06-2022 DEPRESSION ASSESSMENT DEPRESSION ASS ESSMENT [facility] Start: 05-14-2022 End: 07-14-2022 Thyroglobulin Ab [Units/volume] in Serum or Plasma THYROGLOBULIN AB Lab Routine Thyroid cancer (HCC) Expected: 05/14/2022, Expires: 07/14/[address] [facility] Work Phone: Comment on above: Expected: 05/14/2022 , Expires: 07/14/2022 Start: 05-14-2022 End: 07-14-2022 Thyroglobulin and Thyrogobulin Ab panel - Serum or Plasma THYROGLOBULIN BLD Lab Routine Thyroid cancer (HCC) Expected: 05/14/2022, Expires: 07/14/[address] [facility] Work Phone: Comment on above: Expected: 05/14/2022 , Expires: 07/14/2022 Start: 05-14-2022 End: 02-12-2023 Thyrotropin [Units/volume] in Serum or Plasma TSH BLD Lab Routine Thyroid cancer (HCC) Expected: 05/14/2022, Expires: 02/12/[address] [facility] Work Phone: Comment on above: Expected: 05/14/2022 , Expires: 02/12/2023 Start: 05-14-2022 End: 02-12-2023 Thyroxine (T4) [Mass/volume] in Serum or Plasma T4/THYROXINE BLOOD Lab Routine Thyroid cancer (HCC) Expected: 05/14/2022, Expires: 02/12/[address] [facility] Work Phone: Comment on above: Expected: 05/14/2022 , Expires: 02/12/2023 Start: 05-14-2022 End: 02-12-2023 Triiodothyronine (T3) [Mass/volume] in Serum or Plasma T3 BLD Lab Routine Thyroid cancer (HCC) Expected: 05/14/2022, Expires: 02/12/[address] [facility] Work Phone: Comment on above: Expected: 05/14/2022 , Expires: 02/12/2023 Start: 02-05-2022 End: 04-07-2022 T3 BLD T3 BLD Lab Routine Thyroid cancer (HCC) Expected: 02/05/2022, Expires: 04/07/[address] [facility] Work Phone: Comment on above: Expected: 02/05/2022 , Expires: 04/07/2022 Start: 02-05-2022 End: 04-07-2022 Thyrotropin [Units/volume] in Serum or Plasma TSH BLD Lab Routine Thyroid cancer (HCC) Expected: 02/05/2022, Expires: 04/07/[address] [facility] Work Phone: Comment on above: Expected: 02/05/2022 , Expires: 04/07/2022 Start: 02-05-2022 End: 04-07-2022 Thyroxine (T4) [Mass/volume] in Serum or Plasma T4/THYROXINE BLOOD Lab Routine Thyroid cancer (HCC) Expected: 02/05/2022, Expires: 04/07/[address] [facility] Work Phone: Comment on above: Expected: 02/05/2022 , Expires: 04/07/2022 Start: 02-04-2022 Influenza vaccination C [facility] Start: 12-16-2021 End: 02-15-2022 Thyrotropin [Units/volume] in Serum or Plasma TSH BLD Lab Routine Thyroid cancer (HCC) Expected: 12/16/2021, Expires: 02/15/[address] [facility] Work Phone: Comment on above: Expected: 12/16/2021 , Expires: 02/15/2022 Start: 12-16-2021 End: 02-15-2022 Thyroxine (T4) [Mass/volume] in Serum or Plasma T4/THYROXINE BLOOD Lab Routine Thyroid cancer (HCC) Expected: 12/16/2021, Expires: 02/15/[address] [facility] Work Phone: Comment on above: Expected: 12/16/2021 , Expires: 02/15/2022 Start: 06-06-2021 DEPRESSION ASSESSMENT DEPRESSION ASS ESSMENT [facility] Start: 02-05-2020 Influenza vaccination INFLUENZA (#1) [facility] Start: 04-26-2018 Hemoglobin A1c measurement Freda betes: Hemoglobin A1C [facility] Start: 2017 Screening for malign ant neoplasm of colon [facility] Start: 2017 SHINGRIX VACCINE (1 of 2) MOCK GRIX VACCINE (1 of 2) [facility] Start: 01-25-2012 COLOGUARD (FIT-DNA) COLOGUARD (FIT-D NA) [facility] Start: 01-25-2012 Colonoscopy COLONOSCOPY [facility] Start: 01-25-2012 COLORECTAL CANCER SCREENING COLORECTAL CANCER SCREENING [facility] Start: 01-25-[address] COLONOGRAPHY [facility] Start: 01-25-2012 DIABETES SCREEN DIABETES SCREEN [facility] Start: 01-25-2012 FECAL OCCULT BLOOD FECAL OCCULT BLOO D [facility] Start: 01-25-2012 Lipid 1996 panel - S khushbu or Plasma Lipid Screening [facility] Start: 01-25-2012 Lipid panel Lipid Screening [facility] Start: 01-25-2012 LIPID SCREEN LIPID SCREEN [facility] Start: 01-25-2012 Screening for malign ant neoplasm of colon [facility] Start: 01-25-2012 SIGMOIDOSCOPY SIGMOIDOSCOPY [facility] Start: 2007 Mammography [facility] Start: 2007 Screening for malign ant neoplasm of breast Mammogram Screening [facility] Start: 1997 HPV TESTING HPV TESTING [facility] Start: 1997 Screening for malign ant neoplasm of cervix [facility] Start: 01-25-1988 PAP TESTING PAP TESTING [facility] Start: 01-25-1988 Screening for malign ant neoplasm of cervix Pap Testing [facility] Start: 1986 Hepatitis B Vaccine (1 of 3 - 19+ 3-dose series) Hepatitis B Vaccine (1 of 3 - 19+ 3-dose series) [facility] Start: 1986 Urine microalbumin profile [facility] Start: 1986 Urine screening for protein Diabetes: Urine Protein Screening [facility] Start: 1985 HEPATITIS C SCREENING HEPATITIS C [facility] Start: 1985 Hepatitis C screening Hepatitis C [facility] Start: 1985 HIV SCREENING HIV SCREENING [facility] Start: 1985 HIV screening HIV Screening [facility] Start: 1977 Glaucoma screening Diabetes: R etinopathy Screening [facility] Start: 1973 PNEUMOCOCCAL (1 - PCV) PNEUMOCOCCAL (1 - PCV) [facility] Start: 01-25-1972 COVID-19 VACCINE (#1) COVID-19 VACCI NE (#1) [facility] Start: 1967 COVID-19 VACCINE (#1) COVID-19 VACCI NE (#1) [facility] Start: 1967 HEPATITIS B (1 of 3 - 3-dose series) HEPATITIS B (1 of 3 - 3-dose series) [facility] Start: 1967 Hepatitis B Vaccine (1 of 3 - 3-dose series) Hepatitis B Vaccine (1 of 3 - 3-dose series) [facility] Start: 1967 Screening for malign ant neoplasm of colon [facility] Immunizations Immunization Date Immunization Notes Care Provider Fa [facility] 03-25-2020 influenza virus vacc ine, unspecified formulation SOFY Nugent MD Work Phone: [facility] Payers Date Payer Category Payer Private Health Insurance [facility] CHOICE PLUS [id number] 2020-Present [phone] [address] [place] [address] O [id number] 2020 Private Health Insurance [id number] 2020 Private Health Insurance [id number] 2019 Unknown JAIDEN ALICIA SIEGEL SS PPO [id number] 2019-Present PPO [id number] 1967 Unknown [id number] 1967 Unknown [id number] 1967 Unknown [id number] 1967 Unknown [id number] 1967 Unknown [id number] 1967 Unknown [id number] 1967 Unknown [id number] 1967 Unknown [id number] [id number] 1967 Unknown [id number] [id number] 1967 Unknown [id number] [id number] 1967 Unknown [id number] .[id number] 1967 Unknown [id number] 1967 Unknown [id number] .[id number] 1967 Unknown [id number] .[id number] 1967 Unknown [id number] .[id number] 1967 Unknown [id number] 1959 Private Health Insurance [id number] Unknown [id number] Social History Date Type Detail Facility Start: 05-11-2012 End: 05-29-2020 Tobacco smoking status NHIS Former smoker [facility] Work Phone: History of tobacco use Cigarette Smoker C [facility] Start: 05-11-2012 Alcohol intake Not Asked [facility] Start: 05-11-2012 Tobacco Comment quit smoking Jun 28, 2009 [facility] Start: 1965 Sex Assigned At Not on file [facility] Exposure to SARS-CoV -2 (event) Unable to assess [facility] Start: 05-11-2012 End: 11-18-2022 Cigarettes smoked current (pack per day) - Reported 1 [facility] Start: 05-11-2012 End: 05-29-2020 Tobacco use and exposure Smokeless tobacco non-user [facility] Work Phone: Start: 09-16-2020 End: 06-09-2023 Alcohol intake Ex-drinker (finding) [facility] History of tobacco use Current smoker [facility] Start: 01-25-2022 End: 02-04-2022 Exposure to SARS-CoV-2 (event) Not sure [facility] Start: 09-06-2022 End: 11-18-2022 Patient Health Questionnaire 2 item (PHQ-2) [Reported] [facility] Adult Depression Screening Assessment 0 [facility] Start: 07-20-2020 Gender identity Identifies as female gender (finding) [facility] Start: 07-20-2020 Sexual orientation Heterosexual (finding) [facility] Within the last year , have [...] - these days [OSQ] To some extent [facility] (I/We) worried wheth er (my/our) food would run out before (I/we) got money to buy more. Never true [facility] Start: 06-09-2023 Tobacco Comment Last smoked: 5-10 years ago [facility] Start: 06-09-2023 Alcohol Comment caffeine more than 4 cups per day [facility] Start: 1965 Sex Assigned At Female [facility] Medical Equipment Procedure Code Equipment Code Equipment Origin al Text Equipment Identifier Dates 0---Anchr Sut 4.5mm Pshlk nl - [id number] Start: 11-29-2012 Comment on above: Description: SUTURE ANCHOR Inject 1 each under the skin in the morning and 1 each before bedtime. [id number] Start: 04-20-2023 Clinical Notes 10-16-2021 to 08-09-2023 Telephone Encounter - Kobi Hammonds - 08/04/2023 1:01 PM ESTTelephone Encounter - Argenis Harris RN - 08/04/2023 12:00 PM ESTTelephone Encounter - Argenis Harris RN - 05/04/2023 1:20 PM EST Note Date & Type Note Facility 08-09-2023 Note HNO ID: [id number] Author: Zion NUGENT MD Service: ? Author Type: Physician Type: Progress Notes Filed: 08/09/2023 15:32 Note Text: AMBULATORY TELEPHONE VISIT Call made on 03/24/23 Katalina Hutchins has consented to this telephone encounter. 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 Patient received I-131 ablative therapy, 75.9 mCi on 07/09/2020 HPI: Doing well. Denies significant problems. No chest pain palpitations feelings of anxiousness. Denies dysphagia. Denies any weight gain. Data Reviewed: Most recent labs Ref. 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 Plan: TSH appropriate. Clinically doing well without issues. T4 slightly elevated however given or her TSH shows and lack of hyperthyroid symptoms recommend keeping same dose and recheck labs in 6 months. Total Time Spent: 5 minutes G Anthony Nugent MD [facility] 08-04-2023 Miscellaneous Notes Formattin g of this note might be different from the original. Changed appt Spoke to pt as thyroglobulin is not back yet from [place]. They are unsure when it will result. PSS- please change phone visit to Tuesday, 08/08 at 3:30pm. Thank you documented in this encounter [facility] 05-04-2023 Miscellaneous Notes Formattin g of this note might be different from the original. Please review and sign if agreeable. Argenis Harris RN documented in this encounter [facility] 03-24-2023 Note HNO ID: [id number] Author: Zion Nugent MD Service: ? Author Type: Physician Type: Progress Notes Filed: 03/24/2023 3:13 PM Note Text: AMBULATORY TELEPHONE VISIT Call made on 03/24/23 Katalina Hutchins has consented to this telephone encounter. 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 Patient received I-131 [...] right with lymph node involvement, stage I [id number], status post total thyroidectomy. Plan: TSH improved, a little higher than ideal however given T4 elevation recommend maintaining current Synthroid dose. Patient without any clinical issues related to this. Plan to recheck labs in 4 months. Total Time Spent: 6 minutes Zion Nugent MD [facility] 03-24-2023 Miscellaneous Notes Formattin g of this note might be different from the original. Images from the original note were not included. Mailed patient her lab tests she gets elsewere and scheudled appt for her [facility]ent MD [facility] [place]; Kobi Hammonds See patient back or televisit 4 months with labs documented in this encounter [facility] 03-24-2023 History of Presen t illness Narrative AMBULATORY TELEPHONE VISIT Call made on 03/24/23 Katalina Hutchins has consented to this telephone encounter. 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 Patient received I-131 [...] right with lymph node involvement, stage I [id number], status post total thyroidectomy. Plan: TSH improved, a little higher than ideal however given T4 elevation recommend maintaining current Synthroid dose. Patient without any clinical issues related to this. Plan to recheck labs in 4 months. Total Time Spent: 6 minutes Zion Nugent MD documented in this encounter [facility] 11-18-2022 Note HNO ID: [id number] Author: Zion Nugent MD Service: ? Author Type: Physician Type: Progress Notes Filed: 11/23/2022 9:03 AM Note Text: AMBULATORY TELEPHONE VISIT Katalina Hutchins has consented to this telephone encounter. 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 Patient received I-131 [...] right with lymph node involvement, stage I [id number], status post total thyroidectomy. Plan: TSH improved, still high. Recommend maintaining Synthroid 200 mcg daily. Recheck in 3-4 months. Total Time Spent: 4 minutes G Anthony Nugent MD Call made on 11/23/22 [facility] 11-18-2022 Miscellaneous Notes Formattin g of this note might be different from the original. Call placed to pt due to not having labs prior to phone visit with Dr Nugent. LM requesting she CB to reschedule after she Is able to have labs. Argenis Harris RN documented in this encounter [facility] 11-18-2022 History of Presen t illness Narrative AMBULATORY TELEPHONE VISIT Katalina Velazquezalfonso has consented to this telephone encounter. 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 Patient received I-131 [...] right with lymph node involvement, stage I [id number], status post total thyroidectomy. Plan: TSH improved, still high. Recommend maintaining Synthroid 200 mcg daily. Recheck in 3-4 months. Total Time Spent: 4 minutes Zion Nugent MD Call made on 11/23/22 documented in this encounter [facility] 09-09-2022 Note HNO ID: [id number] Author: Zion Nugent MD Service: ? Author Type: Physician Type: Progress Notes Filed: 09/09/2022 3:12 PM Note Text: AMBULATORY TELEPHONE VISIT Katalina Hutchins has consented to this telephone encounter. 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 Patient received I-131 [...] right with lymph node involvement, stage I [id number], status post total thyroidectomy. Plan: TSH needs more suppression. Recommend increasing Synthroid to 200 mcg daily. Recheck in 6 to 8 weeks. Encourage patient to call should she feel she is not tolerating this dose. Total Time Spent: 6 minutes Zion Nugent MD [facility] 09-09-2022 History of Presen t illness Narrative AMBULATORY TELEPHONE VISIT Katalina Hutchins has consented to this telephone encounter. 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 Patient received I-131 [...] right with lymph node involvement, stage I [id number], status post total thyroidectomy. Plan: TSH needs more suppression. Recommend increasing Synthroid to 200 mcg daily. Recheck in 6 to 8 weeks. Encourage patient to call should she feel she is not tolerating this dose. Total Time Spent: 6 minutes Zion Nugent MD documented in this encounter [facility] 09-08-2022 Miscellaneous Notes Formattin g of this note might be different from the original. Lab orders faxed to [facility] per patient request. documented in this encounter [facility] 06-10-2022 History of Presen t illness Narrative AMBULATORY TELEPHONE VISIT Katalina Cristoferalfonso has consented to this telephone encounter. 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 Patient received I-131 [...] right with lymph node involvement, stage I [id number], status post total thyroidectomy. Plan: Labs okay with the exception of TSH. Patient states that she had ran out of her prescription will be for so this is not reliable. Recommend continue the current dose and recheck in 3 months. Otherwise patient is doing well. Thyroglobulin remains undetectable. Total Time Spent: 7 minutes Zion Nugent MD documented in this encounter [facility] 06-02-2022 History of Presen t illness Narrative AMBULATORY TELEPHONE VISIT Left message. documented in this encounter [facility] 04-16-2022 Miscellaneous Notes Formattin g of this note might be different from the original. Levothyroxine refill request received from [facility] pharmacy via fax. Order pending your approval. [...] Kaitlynn Carreon LPN documented in this encounter [facility] 02-04-2022 History of Presen t illness Narrative AMBULATORY TELEPHONE VISIT Persons Present: Did not get a hold of patient.(error) I did get a hold of pt by phone. 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 Patient received I-131 [...] right with lymph node involvement, stage I [id number], status post total thyroidectomy. Plan: Given mixed results with T4 T3 and TSH plan to hold current dose. Recheck 2 to 3 months. Total Time Spent:6 minutes Zion Nugent MD documented in this encounter [facility] 11-05-2021 History of Presen t illness Narrative AMBULATORY TELEPHONE VISIT Persons Present: Did not get a hold of patient. 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 Patient received I-131 [...] right with lymph node involvement, stage I [id number], status post total thyroidectomy. Plan: TSH level much improved however still little higher than I would like however given her elevated T4 level plan to keep patient at her current dose and recheck in 2 to 3 months. Total Time Spent:6 minutes Zion Nugent MD documented in this encounter [facility] 10-16-2021 History of Presen t illness Narrative Unless she has immediate concerns or questions okay to push out 2 months AMBULATORY TELEPHONE VISIT Persons Present: Did not get a hold of patient. 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 Patient received I-131 [...] right with lymph node involvement, stage I [id number], status post total thyroidectomy. Plan: TSH level much improved however still little higher than I would like however given her elevated T4 level plan to keep patient at her current dose and recheck in 2 to 3 months. Total Time Spent: 0 minutes Zion Nugent MD documented in this encounter [facility] Evaluation note Diagnosis Thyroid cancer (HCC)- Primary Malignant neoplasm of thyroid gland [facility] Thyroid cancer (HCC)- Primary Malignant neoplasm of thyroid gland [facility] Thyroid cancer (HCC)- Primary Malignant neoplasm of thyroid gland documented in this encounter [facility]* Diagnosis Thyroid cancer (HCC)- Primary Malignant neoplasm of thyroid gland documented in this encounter [facility] note* Diagnosis Thyroid cancer (HCC)- Primary Malignant neoplasm of thyroid gland documented in this encounter [facility] note* Diagnosis 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 Thyroid cancer (HCC) Malignant neoplasm of thyroid gland documented in this encounter [facility] note* Diagnosis History of thyroid cancer- Primary Personal history of malignant neoplasm of thyroid documented in this encounter [facility] note* Diagnosis Acute non-recurrent sinusitis of other [...] or prosecute any alcohol or drug abuse patient.[facility] the event this information is protected by the Federal Confidentiality of Alcohol and Drug Abuse Patient Records regulations: The Federal rules restrict any use of the information to criminally investigate or prosecute any alcohol or drug abuse patient.[facility] the event this information is protected by the Federal Confidentiality of Alcohol and Drug Abuse Patient Records regulations: The Federal rules restrict any use of the information to criminally investigate or prosecute any alcohol or drug abuse patient.[facility] the event this information is protected by the Federal Confidentiality of Alcohol and Drug Abuse Patient Records regulations: The Federal rules restrict any use of the information to criminally investigate or prosecute any alcohol or drug abuse patient.[facility] the event this information is protected by the Federal Confidentiality of Alcohol and Drug Abuse Patient Records regulations: The Federal rules restrict any use of the information to criminally investigate or prosecute any alcohol or drug abuse patient.[facility] the event this information is protected by the Federal Confidentiality of Alcohol and Drug Abuse Patient Records regulations: The Federal rules restrict any use of the information to criminally investigate or prosecute any alcohol or drug abuse patient.[facility] the event this information is protected by the Federal Confidentiality of Alcohol and Drug Abuse Patient Records regulations: The Federal rules restrict any use of the information to criminally investigate or prosecute any alcohol or drug abuse patient.[facility] Hospital[facility] the event this information is protected by the Federal Confidentiality of Alcohol and Drug Abuse Patient Records regulations: The Federal rules restrict any use of the information to criminally investigate or prosecute any alcohol or drug abuse patient.[facility] the event this information is protected by the Federal Confidentiality of Alcohol and Drug Abuse Patient Records regulations: The Federal rules restrict any use of the information to criminally investigate or prosecute any alcohol or drug abuse patient.[facility] Hospital[facility] the event this information is protected by the Federal Confidentiality of Alcohol and Drug Abuse Patient Records regulations: The Federal rules restrict any use of the information to criminally investigate or prosecute any alcohol or drug abuse patient.[facility] Hospital[facility] the event this information is protected by the Federal Confidentiality of Alcohol and Drug Abuse Patient Records regulations: The Federal rules restrict any use of the information to criminally investigate or prosecute any alcohol or drug abuse patient.[facility] Hospital[facility] the event this information is protected by the Federal Confidentiality of Alcohol and Drug Abuse Patient Records regulations: The Federal rules restrict any use of the information to criminally investigate or prosecute any alcohol or drug abuse patient.[facility] HospitalIn the event this information is protected by the Federal Confidentiality of Alcohol and Drug Abuse Patient Records regulations: The Federal rules restrict any use of the information to criminally investigate or prosecute any alcohol or drug abuse patient.[facility] Hospital[facility] the event this information is protected by the Federal Confidentiality of Alcohol and Drug Abuse Patient Records regulations: The Federal rules restrict any use of the information to criminally investigate or prosecute any alcohol or drug abuse patient.[facility] HospitalIn the event this information is protected by the Federal Confidentiality of Alcohol and Drug Abuse Patient Records regulations: The Federal rules restrict any use of the information to criminally investigate or prosecute any alcohol or drug abuse patient.[facility] HospitalIn the event this information is protected by the Federal Confidentiality of Alcohol and Drug Abuse Patient Records regulations: The Federal rules restrict any use of the information to criminally investigate or prosecute any alcohol or drug abuse patient.[facility] HospitalIn the event this information is protected by the Federal Confidentiality of Alcohol and Drug Abuse Patient Records regulations: The Federal rules restrict any use of the information to criminally investigate or prosecute any alcohol or drug abuse patient.[facility] HospitalIn the event this information is protected by the Federal Confidentiality of Alcohol and Drug Abuse Patient Records regulations: The Federal rules restrict any use of the information to criminally investigate or prosecute any alcohol or drug abuse patient.[facility] Reason for Visit (unrecogniz ed section and content) Reason Comments Follow Up Specialty Diagnoses / Procedures Referred By Carlos t Referred To Contact Radiation Oncology / RADIATION ONCOLOGY Diagnoses phone visit after labs [phone] labs drawn at [facility] Procedures PROVIDER SPECIALTY PHONE CALL Zion Nugent MD [facility] [place] [address] Zion Nugent MD [address] [place] [address] Referral ID Status Reason Start Date Expiration Date V isits Requested Visits Authorized [id number] Pending Review 09/29/2021 12/28/2021 99 99 Reason Comments Thyroid Cancer Reason Comments Established Patient Reason Onset Date Comments Refill Request 04/16/2022 Reason Comments Orders faxed Reason Onset Date Comments Future Appointment 11/18/2022 Reason Onset Date Comments Refill Request 01/03/2023 Reason Comments Appointment Confirmation Reason Onset Date Comments Refill Request 05/04/2023 Reason Comments Future Appointment Reason Onset Date Comments Refill Request 09/05/2023 Care Teams (unrecognized sec tion and content) 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 Relationship Specialty Start Date End Date Katalina Colbert CNP PCP - General Family Practice 11/26/14 Zion Nugent MD [address] [place] [address] Radiation Oncology 05/28/20 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 Relationship Specialty Start Date End Date Katalina Colbert CNP PCP - General Family Medicine 11/26/14 Zion Nugent MD [address] [place] [address] Radiation Oncology 05/28/20 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 Relationship Specialty Start Date End Date Katalina Colbert, [facility] PCP - General Family Medicine 11/26/14 Zion Nugent MD [address] [facility] [place] [address] Radiation Oncology 05/28/20 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 Relationship Specialty Start Date End Date Katalina Colbert, [employer]ION [employer] EMERGENCY CLERK PCP - General Family Medicine 11/26/14 Zion Nugent MD [address] [facility] [place] [address] Radiation Oncology 05/28/20 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 Relationship Specialty Start Date End Date Katalina Colbert [facility] PCP - General Family Medicine 11/26/14 Zion Nugent MD [address] [facility] [place] [address] Radiation Oncology 05/28/20 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 Relationship Specialty Start Date End Date Katalina Colbert [facility] PCP - General Family Medicine 11/26/14 Zion Nugent MD [address] [place] [address] Radiation Oncology 05/28/20 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 Relationship Specialty Start Date End Date Katalina Colbert, [employer] DIST[employer]ION [employer] EMERGENCY CLERK PCP - General Family Medicine 11/26/14 Zion Nugent MD [address] [facility] [place] [address] Radiation Oncology 05/28/20 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 Relationship Specialty Start Date End Date Kervin Stevens MD [address] [place] [phone] PCP - General Family Medicine 06/01/23 Katalina Colbert NP [address] [place] [phone] Nurse Practitioner Family Medicine 03/06/23 INFORMATION SOURCE (unrecogn ized section and content) DATE CREATED AUTHOR 10/17/2022 [facility] DATE CREATED AUTHOR AUTHOR'S ORGANIZ ATION 06/11/2023 [facility] EPIC DATE CREATED AUTHOR AUTHOR'S ORGANIZ ATION 08/10/2023 [facility] DATE CREATED AUTHOR AUTHOR'S ORGANIZ ATION 09/14/2023 [facility] DATE CREATED AUTHOR AUTHOR'S ORGANIZ ATION 10/01/2023 [facility] FOR RECORDS PERTAINING TO PATIENTS WHO ARE [...] BE BASED ON THE PRIMARY CLINICAL RECORDS. [facility] [employer] [facility]. provides no warranty or guarantee of the accuracy or completeness of information in this document.
[2023-12-07 13:54] LABS: Albumin Level 3.3 g/dL (3.4-5.0); Anion Gap 12.9; BUN Creatinine Ratio 11.4; Calcium 10.9 mg/dL (8.5-10.1); Carbon Dioxide 29.3 mmol/L (21.0-32.0); Chloride 100 mmol/L (98-107); Chol HDL Ratio 2.4; Cholesterol 163 mg/dL (<=200); Estimated GFR (African America 60 (>=60); Estimated GFR (Non-African Ame 49 (>=60); Glucose 238 mg/dL (74-106); HDL Cholesterol 67 mg/dL (40-60); Phosphorus 4.9 mg/dL (2.6-4.7); Potassium 4.2 mmol/L (3.5-5.1); Sodium 138 mmol/L (136-145); Triglycerides 117 mg/dL (<=150); VLDL CHOLESTEROL 23.4 mg/dL
[2023-12-07 14:44] LABS: Creatinine Urine Random 200.78 mg/dL (20.00-300.00); Microalbum Creatinine Ratio Ur 6.4 mg/g (0.0-29.9); Microalbumin Urine Random <1.3 mg/dL (<=30.0)
[2023-12-09 15:08] LABS: C-Peptide, Serum 3.9 ng/mL (1.1-4.4)
== END 2023-12-07 12:16 | disposition home or self-care (01) ==
LOC: LAB 12:15
PROVIDERS: PCP Nurse Practitioner; Visit Provider Internal Medicine
DX: E78.2 Mixed hyperlipidemia (principal); E11.65 Type 2 diabetes mellitus 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; Z79.4 Long term (current) use of insulin; E55.9 Vitamin D deficiency, unspecified
CPT/HCPCS: 36415; 80061; 80069; 82043; 82306; 82570; 84681

== ENCOUNTER 2024-01-18 18:11 | Outpatient (OUT) | payer OTHER, SELFPAY ==
--- NOTE | 2024-01-18 18:26 | XR_ITS ---
The [place] [id number] Patient Name: DEMETRA HUTCHINS MRN: [id number] date: 1965 Sex: F Assigned Patient Location: [facility] Current Patient Location: [facility] Accession/Order Number: [id number] Exam Date: 01/18/2024 18:20 Report Date: 01/22/2024 09:39 At the request of: DEMETRA XIONG Procedure: XR lumbar spine 2-3V EXAMINATION: XR lumbar spine 2-3V HISTORY: Lumbar back pain, M54.16 COMPARISON: No relevant comparison available. FINDINGS: BONES: Normal alignment with no acute fracture or spondylolisthesis. Mild spondylosis and facet osteoarthropathy DISC SPACES: Normal. No significant disc height narrowing, subluxation, or endplate abnormality. PARASPINOUS: Negative. No paraspinous abnormality is seen. OTHER: Vascular calcifications XR/XR lumbar spine 2-3V IMPRESSION: Mild degenerative change Electronically authenticated by: LIV HORNE Date: 01/22/2024 09:39
--- NOTE | 2024-01-18 18:27 | XR_ITS ---
The [address] [address] Patient Name: DEMETRA HUTCHINS MRN: [id number] date: 1965 Sex: F Assigned Patient Location: [facility] Current Patient Location: [facility] Accession/Order Number: [id number] Exam Date: 01/18/2024 18:20 Report Date: 01/22/2024 09:40 At the request of: DEMETRA XIONG Procedure: XR hip LT min 2V PROCEDURE: XR hip LT min 2V COMPARISON: None. HISTORY: Pain in left hip, M25.552 FINDINGS: BONES:No fracture, acute abnormality, or significant arthropathy. SOFT TISSUES:Negative. No visible soft tissue swelling. EFFUSION:None visible. OTHER: Underpenetration limiting the exam XR/XR hip LT min 2V IMPRESSION: No acute radiographic abnormality Electronically authenticated by: LIV HORNE Date: 01/22/2024 09:40
--- OUTSIDE RECORDS SUMMARY | 2024-01-18 18:29 | XMS_ITS | CCD ---
Author Organization [facility] Care Team Providers Care Health And Safety Advisor Name Role Phone FilemonKatalina Catina Primary Care Provider [phone] Aicholz SUPERVISOR PRINTING SHOP, Katalina Catina Primary Care Provider [phone] Lady Nugent MD Unavailable [phone] Aicholz SUPERVISOR PRINTING SHOP, Katalina Catnia Primary Care Provider Lady Nugent MD Unavailable Aicholz SUPERVISOR PRINTING SHOP, Katalina Catina Primary Care Provider Aicholz SUPERVISOR PRINTING SHOP, Katalina Catina Primary Care Provider Lady Nugent MD Anthony Unavailable DR WILLY NUGENT Consulting Unavailable AICHHOLZ, SUPERVISOR PRINTING SHOP KATALINA Primary Care Unavailable DR WILLY NUGENT Attending Unavailable DR WILLY NUGENT Admitting Unavailable JOSE ALEJANDRO KAYLA Pate Consulting Unavailable HELEN, DR GEN Donovan Attending UnavailDR GEN Hoover Admitting Unavailabl e AICHHOLZ, SUPERVISOR PRINTING SHOP KATALINA Primary Care Unavailable Srinivas, Deonna Consulting Unavailable DORENE Pate, YULIYA Consulting Unavailable AICHHOLZ, SUPERVISOR PRINTING SHOP KATALINA Consulting Unavailable AICHHOLZ, SUPERVISOR PRINTING SHOP KATALINA Primary Care Unavailable AICHHOLZ, SUPERVISOR PRINTING SHOP KATALINA Attending Unavailable AICHHOLZ, SUPERVISOR PRINTING SHOP KATALINA Admitting Unavailable AICHHOLZ, SUPERVISOR PRINTING SHOP KATALINA Consulting Unavailable AICHHOLZ, SUPERVISOR PRINTING SHOP KATALINA Primary Care Unavailable AICHHOLZ, SUPERVISOR PRINTING SHOP KATALINA Attending Unavailable AICHHOLZ, SUPERVISOR PRINTING SHOP KATALINA Admitting Unavailable AICHHOLZ, SUPERVISOR PRINTING SHOP KATALINA Consulting Unavailable AICHHOLZ, SUPERVISOR PRINTING SHOP KATALINA Primary Care Unavailable AICHHOLZ, SUPERVISOR PRINTING SHOP KATALINA Attending Unavailable AICHHOLZ, SUPERVISOR PRINTING SHOP KATALINA Admitting Unavailable DR JILL EDWARDS Consulting Unavailable PINO, DR WILLY Marlow Consulting Unavailable AICHHOLZ, SUPERVISOR PRINTING SHOP KATALINA Primary Care Unavailable PINO, DR WILLY Marlow Attending Unavailable ENGNINI, DR WILLY Marlow Admitting Unavailable AICHHOLZ, SUPERVISOR PRINTING SHOP KATALINA Consulting Unavailable AICHHOLZ, SUPERVISOR PRINTING SHOP KATALINA Attending Unavailable AICHHOLZ, SUPERVISOR PRINTING SHOP KATALINA Admitting Unavailable DR WILLY NUGENT Consulting Unavailable AICHHOLZ, SUPERVISOR PRINTING SHOP KATALINA Primary Care Unavailable PINO, DR WILLY Marlow Attending Unavailable PINO, DR WILLY Marlow Admitting Unavailable AICHHOLZ, SUPERVISOR PRINTING SHOP KATALINA Consulting Unavailable AICHHOLZ, SUPERVISOR PRINTING SHOP KATALINA Primary Care Unavailable AICHHOLZ, SUPERVISOR PRINTING SHOP KATALINA Attending Unavailable AICHHOLZ, SUPERVISOR PRINTING SHOP KATALINA Admitting Unavailable AICHHOLZ, SUPERVISOR PRINTING SHOP KATALINA Consulting Unavailable AICHHOLZ, SUPERVISOR PRINTING SHOP KATALINA Primary Care Unavailable AICHHOLZ, SUPERVISOR PRINTING SHOP KATALINA Attending Unavailable AICHHOLZ, SUPERVISOR PRINTING SHOP KATALINA Admitting Unavailable Aichholz HYDRAULIC LIFT DRIVER, Katalina Unavailable Kervin Stevens MD Primary Care Provider [phone] AICHHOLZ, KATALINA CATINA Primary Care Unavailable Lady NUGENT Attending Unavailable AICHHOLZ, KATALINA CATINA Primary Care Unavailable Lady NUGENT Attending Unavailable Lady NUGENT Attending Unavailable Lady NUGENT Referring Unavailable AICHHOLZ, KATALINA CATINA Primary Care Unavailable AICHHOLZ, KATALINA CAITNA Primary Care Unavailable Lady NUGENT Attending Unavailable AICHOLZ, KATALINA CATNIA Primary Care Unavailable Lady NUGENT Attending Unavailable AICHHOLZ, KATALINA CATINA Primary Care Unavailable Lady NUGENT Attending Unavailable YSABEL TATE Attending Unavailable MODEERER, KERVIN Referring Unavailable [facility] Primary Care Unavailable LATOSHA CORBETT Admitting Unavailable LTAOSHA CORBETT Attending Unavailable ARIC LATOSHA E Referring Unavailable [facility] KERVIN Primary Care Unavailable LIV AZAR Attending Unavailable [facility], KERVIN Primary Care Unavailable ROOSEVELTILLISLATOSHA E Attending Unavailable JUSTINS LATOSHA E Referring Unavailable [facility], KERVIN Primary Care Unavailable AICHOLZ, KATALINA Attending Unavailable AICHHOLZ, KATALINA Attending Unavailable AICHHOLZ, KATALINA Attending Unavailable Allergies Allergy Classification Reported Allergen(s) Allergy Type Date of Onset Reaction(s) Facility (20 sources) Adhesive agent; Translations: [ADHESIVE] Drug Allergy 05-11-2012 [facility] (1 source) Desonide Drug Allergy [facility] (3 sources) Latex; Translations: [LATEX] Drug allergy (disorder) 08-29-2018 [facility] Repository Medications Current Medications Medication Drug [...] capsule take [address] [facility] once daily DULoxetine 60 mg capsule Take [...] take 1 capsule by mouth in the [facility] cholecalciferol (Vitamin D-3) 25 MCG (1000 UT) [...] Comment on above: Take 3 tablets by ks ut once daily. GLUCOSAMINE/CHONDROIT IN SULF A (GLUCOSAMINE-CHONDROI [...] 1 tablet by lukas th once daily. Hwckx-3-KEG-EPA-Fish Oil 1,200 (144-216) mg cap (7 sources) Myhak-1-XGQ-EPA- Fish Oil 1,200 (144-216) mg cap Take [...] sources) Central alpha-2 Adrenergic Agonist Start: 09-15-19 21 End: 08-04-19 24 tiZANidine (ZANAFLEX) 4 mg [...] 03-24-2023 03-24-2023 Episodic Other aftercare (1 source) correction (current) use of aspirin; Translations: [CUSTODIAL CURRENT USE OF ASPIRIN] Onset: 06-22-2022 Episodic Other aftercare (1 source) Other correction (current) drug therapy; Translations: [OTH POINTER MACHINE OPERATOR CURRENT DRUG THERAPY] Onset: 06-22-2022 Episodic Other aftercare (1 source) correction (current) use of oral hypoglycemic drugs; Translations: [POINTER MACHINE OPERATOR USE ORAL HYPOGLYCEMIC DX] Onset: 06-22-2022 Episodic Other aftercare (1 source) 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 ([phone])Copy To: Rec. #:[id number]: #[id number] Final Pathologic Diagnosis Transverse colon polyp: Tubular adenoma fragments. Report Electronically Signed Out st/09/29/2023Bee Montalvo MD Interpretation performed at [facility] [place], [address] [place] [address], License number: [id number]. Clinical History Family history of colon cancer. Gross Description Received in formalin labeled evan HUTCHINS is a single medellin strip of soft tissue, 1.1 cm in greatest dimension. Filtered and submitted in a single cassette. (1, ns, [id number], m7) [facility]/09/27/2023NSK Specimen(s) Received Transverse colon polyp Fee Codes(s): 1; [address] Ness [facility]20[facility] KATALINA HUTCHINS ([id number]) 1965 F Date Time Provider Department 08/04/23 Lady NUGENT SAEID During your visit today, we recorded the following information about you: Argenis Harris, SHAYLA 08/04/2023 12:00 PM Signed Spoke to pt as thyroglobulin is not back yet from [facility]. They are unsure when it will result. [...] Encounter Status:Closed by [facility] KATALINA HUTCHINS ([id number]) 1965 F Date Time Provider Department 03/24/23 Lady NUGENT During your visit today, we recorded the following information about you: Kobi Hammonds 03/24/2023 3:26 PM Signed Mailed patient her lab tests she gets elsewere and scheudled appt for her Lady Nugent MD [facility] Nurse [place]; Kobi Hammonds See patient back or televisit 4 months with labs Allergies As of Date: 03/24/2023 Noted Allergy Reaction ADHESIVE 05/11/2012 2 - Rash Date Reviewed: 09/16/2020 Reviewed by: Kaitlynn Carreon (Gagandeep), RN - Fully Assessed Reason for Visit: Appointment Confirmation [[id number]] Prescriptions as of 03/25/2023 - levothyroxine (SYNTHROID) [...] Encounter Status:Closed by KOBI HAMMONDS on 03/25/23 [facility] Ness 11-18-2022 [facility] KATALINA HUTCHINS ([id number]) 1965 F Date Time Provider Department 11/18/22 Lady NUGENT During your visit today, we recorded [...] Rash Date Reviewed: 09/16/2020 Reviewed by: Kaitlynn MejiaProvider Engagement Executive) SHAYLA Carreon - Fully Assessed Reason for [...] Status:Closed by ARGENIS HARRIS on 11/24/22 Normal [facility] CBC AUTO DIFFon 10-12-2022 BASO # 0.1 103/ul Normal 0.0-0.1 [facility] Comment on above: Performed By: #### C BC #### [facility] [address] [place] [address] [address] Karena Montero Basophils/100 WBC (Bld) 0.8 % Normal 0.2-2.0 [facility] Comment on above: Performed By: #### C BC #### [facility] [address] [place] [address] [address] Karena Montero EO # 0.2 103/ul Normal 0.0-0.7 [facility] Comment on above: Performed By: #### C BC #### [facility] [address] [place] [address] Dr. Karena Montero Eosinophils/100 WBC (Bld) 2.5 % Normal 0.9-7.0 [facility] Comment on above: Performed By: #### C BC #### [facility] [address] [place] [address] Dr. Karena Montero Erythrocyte distribution width (RBC) [Ratio] 14.5 % Normal 11.0-15.0 [facility] Comment on above: Performed By: #### C BC #### [facility] [address] [place] [address] Dr. Karena Montero Hematocrit (Bld) [Volume fraction] 42.9 % Normal 36.0-48.0 [facility] Comment on above: Performed By: #### C BC #### [facility] [address] [place] [address] Dr. Karena Montero Hemoglobin (Bld) [Mass/Vol] 14.3 g/dL Normal 12.0-16.0 [facility] Comment on above: Performed By: #### C BC #### [facility] [address] [place] [address] Dr. Karena Montero IG # 0.02 10e3/ul Normal 0.00-0.03 [facility] Comment on above: Performed By: #### C BC #### [facility] [address] [place] [address] Dr. Karena Montero IG % 0.3 % Normal 0.0-0.5 [facility] Comment on above: Performed By: #### C BC #### [facility] [address] [place] [address] Dr. Karena Montero LYMPH # 1.6 103/ul Normal 1.2-3.8 [facility] Comment on above: Performed By: #### C BC #### [facility] [address] [place] [address] Dr. Karena Montero Lymphocytes/100 WBC (Bld) 27.2 % Normal 20.5-60.0 [facility] Comment on above: Performed By: #### C BC #### [facility] [address] [place] [address] Dr. Karena Montero MANUAL DIFF REQ NO Normal [facility] Comment on above: Performed By: #### C BC #### [facility] [address] [place] [address] Dr. Karena Montero MCH (RBC) [Entitic mass] 28.9 pg Normal 26.7-34.0 [facility] Comment on above: Performed By: #### C BC #### [facility] [address] [place] [address] Dr. Karena Montero MCHC (RBC) [Mass/Vol] 33.3 g/dL Normal 29.9-35.2 [facility] Comment on above: Performed By: #### C BC #### [facility] [address] [place] [address] Dr. Karena Montero MCV (RBC) [Entitic vol] 86.8 fL Normal 81.0-99.0 [facility] Comment on above: Performed By: #### C BC #### [facility] [address] [place] [address] Dr. Karena Montero MONO # 0.5 103/ul Normal 0.3-0.8 [facility] Comment on above: Performed By: #### C BC #### [facility] [address] [place] [address] Dr. Karena Montero Monocytes/100 WBC (Bld) 8.5 % Normal 1.7-12.0 [facility] Comment on above: Performed By: #### C BC #### [facility] [address] [place] [address] Dr. Karena Montero NEUT # 3.7 103/ul Normal 1.4-6.5 [facility] Comment on above: Performed By: #### C BC #### [facility] [address] [place] [address] Dr. Karena Montero Neutrophils/100 WBC (Bld) 60.7 % Normal 43.0-75.0 [facility] Comment on above: Performed By: #### C BC #### [facility] [address] [place] [address] [address] Karena Montero Platelet mean volume (Bld) [Entitic vol] 10.2 fL Normal 9.5-13.5 [facility] Comment on above: Performed By: #### C BC #### [facility] [address] [place] [address] Dr. Karena Montero PLT 214 103/ul Normal 150-450 [facility] Comment on above: Performed By: #### C BC #### [facility] [address] [place] [address] [address] Karena Montero RBC 4.94 106/ul Normal 4.20-5.40 [facility] Comment on above: Performed By: #### C BC #### [facility] [address] [place] [address] Dr. Karena Montero WBC 6.0 103/ul Normal 4.0-11.0 [facility] Comment on above: Performed By: #### C BC #### [facility] [address] [place] [address] Dr. Karena Montero GLYCOHEMOGLOBIN A1Con 2022 ADA RECOMMENDATION SEE BELOW Normal [facility] Comment on above: Result Comment: ADA RECOMMENDED LIMIT 4.0 - 6.0 ADA THERAPEUTIC TARGET < 7.0 ACTION SUGGESTED > 7.0 Performed By: #### C BC #### [facility] [address] [place] [address] Dr. Karena Montero Glucose [Mass/Vol] 292 mg/dL Normal [facility] Comment on above: Performed By: #### C BC #### [facility] [address] [place] [address] Dr. Karena Montero HbA1c (Bld) [Mass fraction] 11.8 % Critically high 4.5-6.2 [facility] Comment on above: Performed By: #### C BC #### [facility] [address] [place] [address] Dr. Karena Montero LIPID PROFILEon 10-12-2022 CHOL-HDL RATIO NORM SEE BELOW Normal [facility] Comment on above: Result Comment: 3.3 - 4.4 LOW RISK 4.4 - 7.1 AVERAGE RISK 7.1 - 11.0 MODERATE RISK >11.0 HIGH RISK Performed By: #### C BC #### [facility] [address] [place] [address] [address] Karena Montero Cholesterol [Mass/Vol] 199 mg/dL Normal <=200 [facility] Comment on above: Performed By: #### C BC #### [facility] [address] [place] [address] [address] Karena Montero Cholesterol in HDL [Mass/Vol] 63 mg/dL Critically high 40-60 [facility] Comment on above: Performed By: #### C BC #### [facility] [address] [place] [address] [address] Karena Montero Cholesterol in LDL [Mass/Vol] 119.8 mg/dL Normal [facility] Comment on above: Performed By: #### C BC #### [facility] [address] [place] [address] Dr. Karena Montero Cholesterol.total/Ch olesterol in HDL [Mass ratio] 3.2 {ratio} Normal [facility] Comment on above: Performed By: #### C BC #### [facility] [address] [place] [address] [address] Karena Montero HDL NORMAL > or = 60 mg/dl - LO W CARDIOVASCULAR RISK <40 mg/dl - HIGH CARDIOVASCULAR RISK Normal [facility] Comment on above: Performed By: #### C BC #### [facility] [address] [place] [address] Dr. Karena Montero LDL CALC NORMAL SEE BELOW Normal [facility] Comment on above: Result Comment: <100 mg/dl OPTIMAL 100 - 129 mg/dl NEAR OR ABOVE OPTIMAL 130 - 159 mg/dl BORDERLINE HIGH 160 - 189 mg/dl HIGH >190 mg/dl VERY HIGH Performed By: #### C BC #### [facility] [address] [place] [address] [address] Karena Montero Triglyceride [Mass/Vol] 81 mg/dL Normal <=150 [facility] Comment on above: Performed By: #### C BC #### [facility] [address] [place] [address] [address] Kraena Montero VLDL CALC 16.2 mg/dL Normal [facility] Comment on above: Performed By: #### C BC #### [facility] [address] [place] [address] Dr. Karena Montero MICROALBUMIN, RAND URon 05-0 mALB 4.5 mg/L Normal <=30.0 [facility] Comment on above: Performed By: #### M ALBR #### [facility] [address] [place] [address] Dr. Karena Montero PROF 14(COMP METB)on 023 Albumin [Mass/Vol] 3.3 g/dL Critically low 3.4-5.0 [facility] Comment on above: Performed By: #### C BC #### [facility] [address] [place] [address] Dr. Karena Montero Albumin/Globulin [Mass ratio] 0.7 {ratio} Normal [facility] Comment on above: Performed By: #### C BC #### [facility] [address] [place] [address] Dr. Karena Montero ALP [Catalytic activity/Vol] 45 U/L Critically low 46-116 [facility] Comment on above: Performed By: #### C BC #### [facility] [address] [place] [address] Dr. Karena Montero ALT [Catalytic activity/Vol] 46 U/L Normal 14-59 [facility] Comment on above: Performed By: #### C BC #### [facility] [address] [place] [address] Dr. Karena Montero Anion gap [Moles/Vol] 12.5 mmol/L Normal [facility] Comment on above: Performed By: #### C BC #### [facility] [address] [place] [address] Dr. Karena Montero AST [Catalytic activity/Vol] 50 U/L Critically high 15-37 [facility] Comment on above: Performed By: #### C BC #### [facility] [address] [place] [address] Dr. Karena Montero Bilirubin [Mass/Vol] 0.9 mg/dL Normal 0.2-1.0 [facility] Comment on above: Performed By: #### C BC #### [facility] [address] [place] [address] [address] Karena Montero Calcium [Mass/Vol] 9.5 mg/dL Normal 8.5-10.1 [facility] Comment on above: Performed By: #### C BC #### [facility] [address] [place] [address] [address] Karena Montero Chloride [Moles/Vol] 102 mmol/L Normal 98-107 [facility] Comment on above: Performed By: #### C BC #### [facility] [address] [place] [address] Dr. Karena Montero CO2 [Moles/Vol] 29.4 mmol/L Normal 21.0-32.0 [facility] Comment on above: Performed By: #### C BC #### [facility] [address] [place] [address] [address] Karena Montero Creatinine [Mass/Vol] 0.89 mg/dL Normal 0.55-1.02 [facility] Comment on above: Performed By: #### C BC #### [facility] [address] [place] [address] Dr. Karena Montero EGFR-AF CENTRAL AFRICAN >60 Normal >=60 [facility] Comment on above: Performed By: #### C BC #### [facility] [address] [place] [address] Dr. Karena Montero EGFR-NON AF CENTRAL AFRICAN >60 Normal >=60 [facility] Comment on above: Performed By: #### C BC #### [facility] [address] [place] [address] [address] Karena Montero Globulin (S) [Mass/Vol] 4.6 g/dL Normal [facility] Comment on above: Performed By: #### C BC #### [facility] [address] [place] [address] Dr. Karena Montero Glucose [Mass/Vol] 163 mg/dL Critically high 74-106 [facility] Comment on above: Performed By: #### C BC #### [facility] [address] [place] [address] [address] Karena Montero Potassium [Moles/Vol] 4.9 mmol/L Normal 3.5-5.1 [facility] Comment on above: Performed By: #### C BC #### [facility] [address] [place] [address] [address] Karena Montero Protein [Mass/Vol] 7.9 g/dL Normal 6.4-8.2 [facility] Comment on above: Performed By: #### C BC #### [facility] [address] [place] [address] [address] Karena Montero Sodium [Moles/Vol] 139 mmol/L Normal 136-145 [facility] Comment on above: Performed By: #### C BC #### [facility] [address] [place] [address] [address] Karena Montero Urea nitrogen [Mass/Vol] 11.0 mg/dL Normal 7.0-18.0 [facility] Comment on above: Performed By: #### C BC #### [facility] [address] [place] [address] [address] Karena Montero Urea nitrogen/Creatinine [Mass ratio] 12.4 mg/mg Normal [facility] Comment on above: Performed By: #### C BC #### [facility] [address] [place] [address] [address] Karena Montero UA RANDOM W/MICROSCOPICon BACTERIA TRACE Abnormal NONE SEEN [facility] Comment on above: Performed By: #### M RUBY #### [facility] [address] [place] [address] [address] Karena Montero Bilirubin Ql (U) Negative Normal NEGATIVE [facility] Comment on above: Performed By: #### M RUBY #### [facility] [address] [place] [address] [address] Karena Montero CAST SEEN Abnormal NONE SEEN [facility] Comment on above: Performed By: #### M RUBY #### [facility] [address] [address] [address] Karena Montero Clarity (U) CLEAR Normal CLEAR [facility] Comment on above: Performed By: #### M RUBY #### [facility] [address] [place] [address] Dr. Karena Montero Color (U) YELLOW Normal YELLOW [facility] Comment on above: Performed By: #### M RUBY #### [facility] [address] [place] [address] Dr. Karena Montero Crystals LM Nom (Urine sed) NONE SEEN Normal NONE SEEN [facility] Comment on above: Performed By: #### M RUBY #### [facility] [address] [place] [address] Dr. Karena Montero Epithelial cells LM Ql (Urine sed) RARE Normal NONE SEEN /RARE [facility] Comment on above: Performed By: #### M RUBY #### [facility] [address] [place] [address] Dr. Karena Montero Glucose Ql (U) Negative Normal NEGATIVE [facility] Comment on above: Performed By: #### M RUBY #### [facility] [address] [place] [address] Dr. Karena Montero Hemoglobin Ql (U) Negative Normal NEGATIVE [facility] Comment on above: Performed By: #### M RUBY #### [facility] [address] [place] [address] Dr. Karena Montero HYALINE CAST RARE Normal [facility] Comment on above: Performed By: #### M RUBY #### [facility] [address] [place] [address] Dr. Karena Montero Ketones Ql (U) Negative Normal NEGATIVE [facility] Comment on above: Performed By: #### M RUBY #### [facility] [address] [place] [address] Dr. Karena Montero LEUKOCYTES SMALL Abnormal NEGATIVE [facility] Comment on above: Performed By: #### M RUBY #### [facility] [address] [place] [address] Dr. Karena Montero MUCOUS NONE SEEN Normal NONE SEEN [facility] Comment on above: Performed By: #### M RUBY #### [facility] [address] [address] [address] Karena Montero Nitrite Ql (U) Negative Normal NEGATIVE [facility] Comment on above: Performed By: #### M RUBY #### [facility] [address] [place] [address] Dr. Karena Montero pH (U) 5.0 [pH] Normal 5-9 [facility] Comment on above: Performed By: #### M RUBY #### [facility] [address] [place] [address] Dr. Karena Montero RBC 0-2 Normal 0-2 [facility] Comment on above: Performed By: #### M RUBY #### [facility] [address] [place] [address] Dr. Karena Montero SPEC GRAVITY >=1.030 Abnormal 1.005-<=1.025 [facility] Comment on above: Performed By: #### M RUBY #### [facility] [address] [place] [address] Dr. Karena Montero UA PROTEIN TRACE Normal NEGATIVE/ TRACE [facility] Comment on above: Performed By: #### M RUBY #### [facility] [address] [place] [address] Dr. Karena Montero Urobilinogen Qn (U) 4 {Emily'U}/dL Abnormal 0.2 - 1.0 [facility] Comment on above: Performed By: #### M RUBY #### [facility] [address] [place] [address] Dr. Karena Montero WBC 10-20 Abnormal NONE SEEN [facility] Comment on above: Performed By: #### M RUBY #### [facility] [address] [place] [address] Dr. Karena Montero T3, TOTAL (TRIIODOTHYRONINE) on 09-10-2022 T3, TOTAL 92 ng/dL Normal 71-180 [facility] Comment on above: Performed By: #### C BC #### [facility] [address] [place] [address] Dr. Karena Montero Ness 09-08-2022 [facility] Telephone (HEMASA) KATALINA HUTCHINS ([id number]) 1965 F Date Time Provider Department 09/08/22 Lady NUGENT During your visit today, we recorded the following information about you: Darlin Harris [facility] 09/08/2022 12:49 PM Signed Lab orders faxed to [facility] per patient request. Allergies As of Date: 09/08/2022 Noted Allergy Reaction ADHESIVE 05/11/2012 2 - Rash Date Reviewed: 09/16/2020 Reviewed by: Kaitlynn MejiaProvider Engagement Executiveerendira Carreon RN - Fully Assessed Reason for [...] Status:Closed by DARLIN MUNOZ on 09/08/22 Normal [facility] T4on 09-08-2022 T4 [Mass/Vol] 11.70 ug/dL Normal 4.80-13.90 [facility] Comment on above: Performed By: #### T 4, TSH #### [facility] [address] [place] [address] Dr. Karena Montero TSHon 09-08-2022 TSH 10.637 uIU/mL Critically high 0.358-3.740 [facility] Comment on above: Performed By: #### T 4, TSH #### [facility] [address] NECK ST W [...] tonsils is seen. Electronically authenticated by: DEONNA CHERRY Date: 2022-06-20 22:08 Normal [facility] CBC AUTO DIFFon 06-20-2022 BASO # 0.1 103/ul Normal 0.0-0.1 [facility] Comment on above: Performed By: #### T 4, TSH #### [facility] [address] [place] [address] Dr. Karena Montero Basophils/100 WBC (Bld) 0.9 % Normal 0.2-2.0 [facility] Comment on above: Performed By: #### T 4, TSH #### [facility] [address] [place] [address] Dr. Karena Montreo EO # 0.1 103/ul Normal 0.0-0.7 [facility] Comment on above: Performed By: #### T 4, TSH #### [facility] [address] [place] [address] Dr. Karena Montero Eosinophils/100 WBC (Bld) 0.5 % Critically low 0.9-7.0 [facility] Comment on above: Performed By: #### T 4, TSH #### [facility] [address] [place] [address] Dr. Karena Montero Erythrocyte distribution width (RBC) [Ratio] 13.8 % Normal 11.0-15.0 [facility] Comment on above: Performed By: #### T 4, TSH #### [facility] [address] [place] [address] Dr. Karena Montero Hematocrit (Bld) [Volume fraction] 39.7 % Normal 36.0-48.0 [facility] Comment on above: Performed By: #### T 4, TSH #### [facility] [address] [place] [address] Dr. Karena Montero Hemoglobin (Bld) [Mass/Vol] 13.7 g/dL Normal 12.0-16.0 [facility] Comment on above: Performed By: #### T 4, TSH #### [facility] [address] [place] [address] Dr. Karena Montero IG # 0.06 10e3/ul Critically high 0.00-0.03 [facility] Comment on above: Performed By: #### T 4, TSH #### [facility] [address] [place] [address] Dr. Karena Montero IG % 0.6 % Critically high 0.0-0.5 [facility] Comment on above: Performed By: #### T 4, TSH #### [facility] [address] [place] [address] Dr. Karena Montero LYMPH # 2.0 103/ul Normal 1.2-3.8 [facility] Comment on above: Performed By: #### T 4, TSH #### [facility] [address] [place] [address] Dr. Karena Montero Lymphocytes/100 WBC (Bld) 19.1 % Critically low 20.5-60.0 [facility] Comment on above: Performed By: #### T 4, TSH #### [facility] [address] [place] [address] Dr. Karena Montero MANUAL DIFF REQ NO Normal [facility] Comment on above: Performed By: #### T 4, TSH #### [facility] [address] [place] [address] Dr. Karena Montero MCH (RBC) [Entitic mass] 28.8 pg Normal 26.7-34.0 [facility] Comment on above: Performed By: #### T 4, TSH #### [facility] [address] [place] [address] Dr. Karena Montero MCHC (RBC) [Mass/Vol] 34.5 g/dL Normal 29.9-35.2 [facility] Comment on above: Performed By: #### T 4, TSH #### [facility] [address] [place] [address] Dr. Karena Montero MCV (RBC) [Entitic vol] 83.4 fL Normal 81.0-99.0 [facility] Comment on above: Performed By: #### T 4, TSH #### [facility] [address] [place] [address] Dr. Karena Montero MONO # 0.9 103/ul Critically high 0.3-0.8 [facility] Comment on above: Performed By: #### T 4, TSH #### [facility] [address] [place] [address] Dr. Karena Montero Monocytes/100 WBC (Bld) 8.2 % Normal 1.7-12.0 [facility] Comment on above: Performed By: #### T 4, TSH #### [facility] [address] [place] [address] Dr. Karena Montero NEUT # 7.5 103/ul Critically high 1.4-6.5 [facility] Comment on above: Performed By: #### T 4, TSH #### [facility] [address] [place] [address] Dr. Karena Montero Neutrophils/100 WBC (Bld) 70.7 % Normal 43.0-75.0 [facility] Comment on above: Performed By: #### T 4, TSH #### [facility] [address] [place] [address] Dr. Karena Montero Platelet mean volume (Bld) [Entitic vol] 10.5 fL Normal 9.5-13.5 [facility] Comment on above: Performed By: #### T 4, TSH #### [facility] [address] [place] [address] Dr. Karena Montero PLT 253 103/ul Normal 150-450 [facility] Comment on above: Performed By: #### T 4, TSH #### [facility] [address] [place] [address] Dr. Karena Montero RBC 4.76 106/ul Normal 4.20-5.40 [facility] Comment on above: Performed By: #### T 4, TSH #### [facility] [address] [place] [address] Dr. Karena Montero WBC 10.6 103/ul Normal 4.0-11.0 [facility] Comment on above: Performed By: #### T 4, TSH #### [facility] [address] [place] [address] Dr. Karena Montero CULTURE BLOODon 06-20-2022 Microscopic examination of blood, culture Culture Observations: NO GROWTH AT 5 DAYS. Normal [facility] Comment on above: Performed By: #### T 4, TSH #### [facility] [address] [place] [address] Dr. Karena Montero Microscopic examination of blood, culture Culture Observations: NO GROWTH AT 5 DAYS. Normal [facility] Comment on above: Performed By: #### T 4, TSH #### [facility] [address] [place] [address] Dr. Karena Montero LACTATE/LACTIC ACIDon 2022 Lactate [Moles/Vol] 1.5 mmol/L Normal 0.4-1.9 [facility] Comment on above: Performed By: #### T 4, TSH #### [facility] [address] [place] [address] Dr. Karena Montero MONOon 06-20-2022 Monocytes (Bld) [#/Vol] Negative Normal NEGATIVE [facility] Comment on above: Performed By: #### M RUBY #### [facility] [address] [place] [address] Dr. Karena Montero PROF 14(COMP METB)on 023 Albumin [Mass/Vol] 3.1 g/dL Critically low 3.4-5.0 [facility] Comment on above: Performed By: #### C MP #### [facility] [address] [address] [address] Karena Montero Albumin/Globulin [Mass ratio] 0.6 {ratio} Normal [facility] Comment on above: Performed By: #### C MP #### [facility] [address] [address] [address] Karena Montero ALP [Catalytic activity/Vol] 47 U/L Normal 46-116 [facility] Comment on above: Performed By: #### C MP #### [facility] [address] [address] [address] Karena Montero ALT [Catalytic activity/Vol] 20 U/L Normal 14-59 [facility] Comment on above: Performed By: #### C MP #### [facility] [address] [place] [address] Dr. Karena Montero Anion gap [Moles/Vol] 11.1 mmol/L Normal [facility] Comment on above: Performed By: #### C MP #### [facility] [address] [place] [address] Dr. Karena Montero AST [Catalytic activity/Vol] 24 U/L Normal 15-37 [facility] Comment on above: Performed By: #### C MP #### [facility] [address] [place] [address] Dr. Karena Montero Bilirubin [Mass/Vol] 1.5 mg/dL Critically high 0.2-1.0 [facility] Comment on above: Performed By: #### C MP #### [facility] [address] [place] [address] Dr. Karena Montero Calcium [Mass/Vol] 9.4 mg/dL Normal 8.5-10.1 [facility] Comment on above: Performed By: #### C MP #### [facility] [address] [place] [address] Dr. Karena Montero Chloride [Moles/Vol] 94 mmol/L Critically low 98-107 [facility] Comment on above: Performed By: #### C MP #### [facility] [address] [address] [address] Karena Montero CO2 [Moles/Vol] 27.9 mmol/L Normal 21.0-32.0 [facility] Comment on above: Performed By: #### C MP #### [facility] [address] [address] [address] Karena Montero Creatinine [Mass/Vol] 0.85 mg/dL Normal 0.55-1.02 [facility] Comment on above: Performed By: #### C MP #### [facility] [address] [address] [address] Karena Montero EGFR-AF CENTRAL AFRICAN >60 Normal >=60 [facility] Comment on above: Performed By: #### C MP #### [facility] [address] [address] [address] Karena Montero EGFR-NON AF CENTRAL AFRICAN >60 Normal >=60 [facility] Comment on above: Performed By: #### C MP #### [facility] [address] [address] [address] Karena Montero Globulin (S) [Mass/Vol] 5.3 g/dL Normal [facility] Comment on above: Performed By: #### C MP #### [facility] [address] [place] [address] Dr. Karena Mnotero Glucose [Mass/Vol] 204 mg/dL Critically high 74-106 [facility] Comment on above: Performed By: #### C MP #### [facility] [address] [address] [address] Karena Montero Potassium [Moles/Vol] 3.0 mmol/L Critically low 3.5-5.1 [facility] Comment on above: Performed By: #### C MP #### [facility] [address] [place] [address] Dr. Karena Montero Protein [Mass/Vol] 8.4 g/dL Critically high 6.4-8.2 [facility] Comment on above: Performed By: #### C MP #### [facility] [address] [place] [address] Dr. Karena Montero Sodium [Moles/Vol] 130 mmol/L Critically low 136-145 [facility] Comment on above: Performed By: #### C MP #### [facility] [address] [place] [address] Dr. Karena Montero Urea nitrogen [Mass/Vol] 10.0 mg/dL Normal 7.0-18.0 [facility] Comment on above: Performed By: #### C MP #### [facility] [address] [place] [address] Dr. Karena Montero Urea nitrogen/Creatinine [Mass ratio] 11.8 mg/mg Normal [facility] Comment on above: Performed By: #### C MP #### [facility] [address] [place] [address] Dr. Karena Montero STREPT SCREENon 06-20-2022 STREP SCREEN A Positive Abnormal NEGATIVE [facility] Comment on above: Performed By: #### C BC #### [facility] [address] [place] [address] Dr. Karena Montero THYROGLOBULIN AB AND THYROGL OBULINon 05-29-2022 Thyroglobulin Antibody <1.0 Normal 0.0-0.9 [facility] Comment on above: Result Comment: Thyr oglobulin Antibody measured by [place] Methodology Performed By: #### T HYGIMA #### [facility] [address] [place] [address] Dr. Karena Montero Thyroglobulin by ZACK <0.1 Critically low 1.5-38.5 [facility] Comment on above: Result Comment: [...] Assay Performed By: #### T HYGIMA #### [facility] [address] [place] [address] Dr. Karena Montero T3, TOTAL (TRIIODOTHYRONINE) on 05-28-2022 T3, TOTAL 77 ng/dL Normal 71-180 [facility] Comment on above: Performed By: #### C BC #### [facility] [address] [place] [address] Dr. Karena Montero GLYCOHEMOGLOBIN A1Con 2021 ADA RECOMMENDATION SEE BELOW Normal [facility] Comment on above: Result Comment: ADA RECOMMENDED LIMIT 4.0 - 6.0 ADA THERAPEUTIC TARGET < 7.0 ACTION SUGGESTED > 7.0 Performed By: #### T 4, TSH #### [facility] [address] [address] [address] Karena Montero Glucose [Mass/Vol] 252 mg/dL Normal [facility] Comment on above: Performed By: #### T 4, TSH #### [facility] [address] [place] [address] Dr. Karena Montero HbA1c (Bld) [Mass fraction] 10.4 % Critically high 4.5-6.2 [facility] Comment on above: Performed By: #### T 4, TSH #### [facility] [address] [place] [address] Dr. Karena Montero PROF CHEM 8 (BAS METB)on Anion gap [Moles/Vol] 11.2 mmol/L Normal [facility] Comment on above: Performed By: #### C BC #### [facility] [address] [place] [address] Dr. Karena Montero Calcium [Mass/Vol] 9.2 mg/dL Normal 8.5-10.1 [facility] Comment on above: Performed By: #### C BC #### [facility] [address] [place] [address] Dr. Karena Montero Chloride [Moles/Vol] 98 mmol/L Normal 98-107 [facility] Comment on above: Performed By: #### C BC #### [facility] [address] [place] [address] Dr. Karena Montero CO2 [Moles/Vol] 30.4 mmol/L Normal 21.0-32.0 [facility] Comment on above: Performed By: #### C BC #### [facility] [address] [address] [address] Karena Montero Creatinine [Mass/Vol] 0.99 mg/dL Normal 0.55-1.02 [facility] Comment on above: Performed By: #### C BC #### [facility] [address] [address] [address] Karena Montero EGFR-AF CENTRAL AFRICAN >60 Normal >=60 [facility] Comment on above: Performed By: #### C BC #### [facility] [address] [address] [address] Karena Montero EGFR-NON AF CENTRAL AFRICAN 58 mL/min/1.73m2 Critically low >=60 [facility] Comment on above: Performed By: #### C BC #### [facility] [address] [address] [address] Karena Montero Glucose [Mass/Vol] 274 mg/dL Critically high 74-106 [facility] Comment on above: Performed By: #### C BC #### [facility] [address] [address] [address] Karena Montero Potassium [Moles/Vol] 3.6 mmol/L Normal 3.5-5.1 [facility] Comment on above: Performed By: #### C BC #### [facility] [address] [address] [address] Karena Montero Sodium [Moles/Vol] 136 mmol/L Normal 136-145 [facility] Comment on above: Performed By: #### C BC #### [facility] [address] [address] [address] Karena Montero Urea nitrogen [Mass/Vol] 13.0 mg/dL Normal 7.0-18.0 [facility] Comment on above: Performed By: #### C BC #### [facility] [address] [address] [address] Karena Montero Urea nitrogen/Creatinine [Mass ratio] 13.1 mg/mg Normal [facility] Comment on above: Performed By: #### C BC #### [facility] [address] [address] [address] Karena Montero T4on 05-27-2022 T4 [Mass/Vol] 11.00 ug/dL Normal 4.80-13.90 [facility] Comment on above: Performed By: #### C BC #### [facility] [address] [place], [place] [address] Dr. Karena Montero TSHon 05-27-2022 TSH 35.436 uIU/mL Critically high 0.358-3.740 [facility] Comment on above: Performed By: #### C BC #### [facility] [address] [address] [address] Karena Montero MG MAMM SCREEN 3D FRANCI CADon 04-27-2022 MG MAMM SCREEN 3D FRANCI CAD Patient: KATALINA HUTCHINS Exam Date: 04/27/2022 : 1965 Gender:F Ordering : TARIK KATALINA [facility] Admission #: [id number] Family : Order #: [id number] CLICK HERE TO VIEW EXAM RADIOLOGY REPORT [...] uterine cancer at age 28. LOCATION: [facility] BREAST COMPOSITION: Scattered areas fibroglandular density. [...] Edwards M.D. on 04/28/2022 at 12:11 Normal [facility] PTH INTACTon 09-17-2022 PTH, Intact 11 pg/mL Critically low 15-65 [facility] Comment on above: Performed By: #### T 4, TSH #### [facility] [address] [address] [address] Karena Montero VIT D 25-OH LABCORPon 2021 Vitamin D, 25-Hydroxy 43.2 ng/mL Normal 30.0-100.0 [facility] Comment on above: Result Comment: Yvonne min D deficiency has been defined by the Five Points of Medicine and an Endocrine Society practice guideline as a level of serum 25-OH vitamin D less than 20 ng/mL (1,2). The Endocrine Society went on to further define vitamin D insufficiency as a level between 21 and 29 ng/mL (2). 1. IOM (Five Points of Medicine). 2010. Dietary reference intakes for calcium and D. [place]: The National Academies Press. 2. Herminia MF, Jean Marie [place], Leigh LOYOLA, et al. Evaluation, treatment, and prevention of vitamin D deficiency: an Endocrine Society clinical practice guideline. JCEM. 2010; 96(7):1911-30. Performed By: #### M RUBY #### [facility] [address] [address] [address] Karena Montero CALCIUMon 02-18-2022 Calcium [Mass/Vol] 9.8 mg/dL Normal 8.5-10.1 [facility] Comment on above: Performed By: #### M RUBY #### [facility] [address] [address] [address] Karena Montero Covid-19 PCR (CVDTBH)on 01-06 SARS-CoV-2 (COVID-19) RNA RADHA+probe Ql (Unsp spec) Not detected Normal NOT DETECTED [facility] Comment on above: Result Comment: This test is not yet approved or cleared by the [place] FDA. When there are no FDA-approved or cleared tests available, and other criteria are met, FDA can make tests available under an emergency access mechanism called an Emergency Use Authorization (EUA). The EUA for this test is supported by the [place] of Health and Human Service's (HHS's) declaration [...] SARS-CoV-2. Performed By: #### M RUBY #### [facility] [address] [place] [address] Dr. Karena Montero MICROALBUMIN URINEon 022 Albumin, Urine 64.2 ug/mL Normal Not Estab. [facility] Comment on above: Performed By: #### M ALBLC #### [facility] [address] [place] [address] Dr. Karena Montero T3, TOTAL (TRIIODOTHYRONINE) on 01-30-2022 T3, TOTAL 101 ng/dL Normal 71-180 [facility] Comment on above: Performed By: #### T 4, TSH #### [facility] [address] [place] [address] Dr. Karena Montero T4 [facility]on 01-30-2022 T4 [Mass/Vol] 12.3 ug/dL Critically high 4.5-12.0 [facility] Comment on above: Performed By: #### M RUBY #### [facility] [address] [place] [address] Dr. Karena Montero CBC AUTO DIFFon 01-29-2022 BASO # 0.1 103/ul Normal 0.0-0.1 [facility] Comment on above: Performed By: #### C BC #### [facility] [address] [place] [address] Dr. Karena Montero Basophils/100 WBC (Bld) 1.2 % Normal 0.2-2.0 [facility] Comment on above: Performed By: #### C BC #### [facility] [address] [place] [address] Dr. Karena Montero EO # 0.1 103/ul Normal 0.0-0.7 [facility] Comment on above: Performed By: #### C BC #### [facility] [address] [place] [address] Dr. Karena Montero Eosinophils/100 WBC (Bld) 2.6 % Normal 0.9-7.0 [facility] Comment on above: Performed By: #### C BC #### [facility] [address] [place] [address] Dr. Karena Montero Erythrocyte distribution width (RBC) [Ratio] 14.0 % Normal 11.0-15.0 [facility] Comment on above: Performed By: #### C BC #### [facility] [address] [place] [address] Dr. Karena Montero Hematocrit (Bld) [Volume fraction] 42.7 % Normal 36.0-48.0 [facility] Comment on above: Performed By: #### C BC #### [facility] [address] [place] [address] Dr. Karena Montero Hemoglobin (Bld) [Mass/Vol] 14.4 g/dL Normal 12.0-16.0 [facility] Comment on above: Performed By: #### C BC #### [facility] [address] [place] [address] Dr. Karena Montero IG # 0.01 10e3/ul Normal 0.00-0.03 [facility] Comment on above: Performed By: #### C BC #### [facility] [address] [place] [address] Dr. Karena Montero IG % 0.2 % Normal 0.0-0.5 [facility] Comment on above: Performed By: #### C BC #### [facility] Laboratory [address] [place] [address] Dr. Karena Montero LYMPH # 1.5 103/ul Normal 1.2-3.8 [facility] Comment on above: Performed By: #### C BC #### [facility] [address] [place] [address] Dr. Karena Montero Lymphocytes/100 WBC (Bld) 34.5 % Normal 20.5-60.0 [facility] Comment on above: Performed By: #### C BC #### [facility] [address] [place] [address] Dr. Karena Montero MANUAL DIFF REQ NO Normal The [facility] Comment on above: Performed By: #### C BC #### [facility] [address] [place] [address] Dr. Karena Montero MCH (RBC) [Entitic mass] 29.0 pg Normal 26.7-34.0 [facility] Comment on above: Performed By: #### C BC #### [facility] [address] [place] [address] Dr. Karena Montero MCHC (RBC) [Mass/Vol] 33.7 g/dL Normal 29.9-35.2 [facility] Comment on above: Performed By: #### C BC #### [facility] [address] [place] [address] Dr. Karena Montero MCV (RBC) [Entitic vol] 85.9 fL Normal 81.0-99.0 [facility] Comment on above: Performed By: #### C BC #### [facility] [address] [place] [address] Dr. Karena Montero MONO # 0.4 103/ul Normal 0.3-0.8 [facility] Comment on above: Performed By: #### C BC #### [facility] [address] [place] [address] Dr. Karena Montero Monocytes/100 WBC (Bld) 8.2 % Normal 1.7-12.0 [facility] Comment on above: Performed By: #### C BC #### [facility] [address] [place] [address] Dr. Karena Montero NEUT # 2.3 103/ul Normal 1.4-6.5 [facility] Comment on above: Performed By: #### C BC #### [facility] [address] [place] [address] Dr. Karena Montero Neutrophils/100 WBC (Bld) 53.3 % Normal 43.0-75.0 [facility] Comment on above: Performed By: #### C BC #### [facility] [address] [place] [address] Dr. Karena Montero Platelet mean volume (Bld) [Entitic vol] 11.6 fL Normal 9.5-13.5 [facility] Comment on above: Performed By: #### C BC #### [facility] [address] [address] [address] Karena Montero PLT 167 103/ul Normal 150-450 [facility] Comment on above: Performed By: #### C BC #### [facility] [address] [place] [address] Dr. Karena Montero RBC 4.97 106/ul Normal 4.20-5.40 [facility] Comment on above: Performed By: #### C BC #### [facility] [address] [place] [address] Dr. Karena Montero WBC 4.3 103/ul Normal 4.0-11.0 [facility] Comment on above: Performed By: #### C BC #### [facility] [address] [place] [address] Dr. Karena Montero GLYCOHEMOGLOBIN A1Con 2021 ADA RECOMMENDATION SEE BELOW Normal [facility] Comment on above: Result Comment: ADA RECOMMENDED LIMIT 4.0 - 6.0 ADA THERAPEUTIC TARGET < 7.0 ACTION SUGGESTED > 7.0 Performed By: #### A 1C #### [facility] [address] [place] [address] Dr. Karena Montero Glucose [Mass/Vol] 258 mg/dL Normal The [facility] Comment on above: Performed By: #### A 1C #### [facility] [address] [place] [address] Dr. Karena Montero HbA1c (Bld) [Mass fraction] 10.6 % Critically high 4.5-6.2 [facility] Comment on above: Performed By: #### A 1C #### [facility] [address] [place] [address] Dr. Karena Montero LIPID PROFILEon 01-29-2022 CHOL-HDL RATIO NORM SEE BELOW Normal [facility] Comment on above: Result Comment: 3.3 - 4.4 LOW RISK 4.4 - 7.1 AVERAGE RISK 7.1 - 11.0 MODERATE RISK >11.0 HIGH RISK Performed By: #### M RUBY #### [facility] [address] [address] [address] Karena Montero Cholesterol [Mass/Vol] 160 mg/dL Normal <=200 [facility] Comment on above: Performed By: #### M RUBY #### [facility] [address] [address] [address] Karena Montero Cholesterol in HDL [Mass/Vol] 60 mg/dL Normal 40-60 [facility] Comment on above: Performed By: #### M RUBY #### [facility] [address] [address] [address] Karena Montero Cholesterol in LDL [Mass/Vol] 83.0 mg/dL Normal [facility] Comment on above: Performed By: #### M RUBY #### [facility] [address] [address] [address] Karena Montero Cholesterol.total/Ch olesterol in HDL [Mass ratio] 2.7 {ratio} Normal [facility] Comment on above: Performed By: #### M RUBY #### [facility] [address] [address] [address] Karena Montero HDL NORMAL > or = 60 mg/dl - LO W CARDIOVASCULAR RISK <40 mg/dl - HIGH CARDIOVASCULAR RISK Normal [facility] Comment on above: Performed By: #### M RUBY #### [facility] [address] [address] [address] Karena Montero LDL CALC NORMAL SEE BELOW Normal [facility] Comment on above: Result Comment: <100 mg/dl OPTIMAL 100 - 129 mg/dl NEAR OR ABOVE OPTIMAL 130 - 159 mg/dl BORDERLINE HIGH 160 - 189 mg/dl HIGH >190 mg/dl VERY HIGH Performed By: #### M RUBY #### [facility] [address] [address] [address] Karena Montero Triglyceride [Mass/Vol] 85 mg/dL Normal <=150 [facility] Comment on above: Performed By: #### M RUBY #### [facility] [address] [place] [address] Dr. Karena Montero VLDL CALC 17.0 mg/dL Normal [facility] Comment on above: Performed By: #### M RUBY #### [facility] [address] [place] [address] Dr. Karena Montero PROF 14(COMP METB)on 022 Albumin [Mass/Vol] 3.3 g/dL Critically low 3.4-5.0 [facility] Comment on above: Performed By: #### M RUBY #### [facility] [address] [place] [address] Dr. Karena Montero Albumin/Globulin [Mass ratio] 0.8 {ratio} Normal [facility] Comment on above: Performed By: #### M RUBY #### [facility] [address] [place] [address] Dr. Karena Montero ALP [Catalytic activity/Vol] 47 U/L Normal 46-116 [facility] Comment on above: Performed By: #### M RUBY #### [facility] [address] [place] [address] Dr. Karena Montero ALT [Catalytic activity/Vol] 39 U/L Normal 14-59 [facility] Comment on above: Performed By: #### M RUBY #### [facility] [address] [place] [address] Dr. Karena Montero Anion gap [Moles/Vol] 14.2 mmol/L Normal [facility] Comment on above: Performed By: #### M RUBY #### [facility] [address] [place] [address] Dr. Karena Montero AST [Catalytic activity/Vol] 38 U/L Critically high 15-37 [facility] Comment on above: Performed By: #### M RUYB #### [facility] [address] [place] [address] Dr. Karena Montero Bilirubin [Mass/Vol] 0.9 mg/dL Normal 0.2-1.0 [facility] Comment on above: Performed By: #### M RUBY #### [facility] [address] [place] [address] Dr. Karena Montero Calcium [Mass/Vol] 10.2 mg/dL Critically high 8.5-10.1 [facility] Comment on above: Performed By: #### M RUBY #### [facility] [address] [address] [address] Karena Montero Chloride [Moles/Vol] 99 mmol/L Normal 98-107 [facility] Comment on above: Performed By: #### M RUBY #### [facility] [address] [place] [address] Dr. Karena Montero CO2 [Moles/Vol] 28.5 mmol/L Normal 21.0-32.0 [facility] Comment on above: Performed By: #### M RUBY #### [facility] [address] [place] [address] Dr. Karena Monteor Creatinine [Mass/Vol] 0.97 mg/dL Normal 0.55-1.02 [facility] Comment on above: Performed By: #### M RUBY #### [facility] [address] [place] [address] Dr. Karena Montero EGFR-AF CENTRAL AFRICAN >60 Normal >=60 [facility] Comment on above: Performed By: #### M RUBY #### [facility] [address] [place] [address] Dr. Karena Montero EGFR-NON AF CENTRAL AFRICAN 60 mL/min/1.73m2 Normal >=60 [facility] Comment on above: Performed By: #### M RUBY #### [facility] [address] [place] [address] Dr. Karena Montero Globulin (S) [Mass/Vol] 4.3 g/dL Normal [facility] Comment on above: Performed By: #### M RUBY #### [facility] [address] [place] [address] Dr. Karena Montero Glucose [Mass/Vol] 303 mg/dL Critically high 74-106 [facility] Comment on above: Performed By: #### M RUBY #### [facility] [address] [address] [address] Karena Montero Potassium [Moles/Vol] 3.7 mmol/L Normal 3.5-5.1 [facility] Comment on above: Performed By: #### M RUBY #### [facility] [address] [address] [address] Karena Montero Protein [Mass/Vol] 7.6 g/dL Normal 6.4-8.2 [facility] Comment on above: Performed By: #### M RUBY #### [facility] [address] [address] [address] Karena Montero Sodium [Moles/Vol] 138 mmol/L Normal 136-145 [facility] Comment on above: Performed By: #### M RUBY #### [facility] [address] [address] [address] Karena Montero Urea nitrogen [Mass/Vol] 13.0 mg/dL Normal 7.0-18.0 [facility] Comment on above: Performed By: #### M RUBY #### [facility] [address] [place] [address] Dr. Karena Montero Urea nitrogen/Creatinine [Mass ratio] 13.4 mg/mg Normal [facility] Comment on above: Performed By: #### M RUBY #### [facility] [address] [address] [address] Karena Montero TSHon 01-29-2022 TSH 6.250 uIU/mL Critically high 0.358-3.740 [facility] Comment on above: Performed By: #### T 4, TSH #### [facility] [address] [place] [address] Dr. Karena Montero UA RANDOM W/MICROSCOPICon BACTERIA NONE SEEN Normal NONE SEEN [facility] Comment on above: Performed By: #### U AMIC #### [facility] [address] [place] [address] Dr. Karena Montero Bilirubin Ql (U) Negative Normal NEGATIVE [facility] Comment on above: Performed By: #### U AMIC #### [facility] [address] [address] [address] Karena Montero CAST NONE SEEN Normal NONE SEEN [facility] Comment on above: Performed By: #### U AMIC #### [facility] [address] [address] [address] Karena Montero Clarity (U) CLEAR Normal CLEAR [facility] Comment on above: Performed By: #### U AMIC #### [facility] [address] [address] [address] Karena Montero Color (U) YELLOW Normal YELLOW [facility] Comment on above: Performed By: #### U AMIC #### [facility] [address] [place] [address] Dr. Karena Montero Crystals LM Nom (Urine sed) NONE SEEN Normal NONE SEEN [facility] Comment on above: Performed By: #### U AMIC #### [facility] [address] [address] [address] Karena Montero Epithelial cells LM Ql (Urine sed) MODERATE Abnormal NONE SEEN /RARE [facility] Comment on above: Performed By: #### U AMIC #### [facility] [address] [address] [address] Karena Montero Glucose Ql (U) Negative Normal NEGATIVE [facility] Comment on above: Performed By: #### U AMIC #### [facility] [address] [address] [address] Karena Montero Hemoglobin Ql (U) Negative Normal NEGATIVE [facility] Comment on above: Performed By: #### U AMIC #### [facility] [address] [address] [address] Karena Montero Ketones Ql (U) Negative Normal NEGATIVE [facility] Comment on above: Performed By: #### U AMIC #### [facility] [address] [address] [address] Karena Montero LEUKOCYTES Negative Normal NEGATIVE [facility] Comment on above: Performed By: #### U AMIC #### [facility] [address] [address] [address] Karena Montero MUCOUS NONE SEEN Normal NONE SEEN [facility] Comment on above: Performed By: #### U AMIC #### [facility] [address] [address] [address] Karena Montero Nitrite Ql (U) Negative Normal NEGATIVE [facility] Comment on above: Performed By: #### U AMIC #### [facility] [address] [address] [address] Karena Montero pH (U) 5.5 [pH] Normal 5-9 [facility] Comment on above: Performed By: #### U AMIC #### [facility] [address] [address] [address] Karena Montero RBC 0-2 Normal 0-2 [facility] Comment on above: Performed By: #### U AMIC #### [facility] [address] [address] [address] Karena Montero SPEC GRAVITY >=1.030 Abnormal 1.005-<=1.025 [facility] Comment on above: Performed By: #### U AMIC #### [facility] [address] [address] [address] Karena Montero UA PROTEIN TRACE Normal NEGATIVE/ TRACE [facility] Comment on above: Performed By: #### U AMIC #### [facility] [address] [address] [address] Karena Montero Urobilinogen Qn (U) 1.0 {Emily'U}/dL Normal 0.2 - 1. 0 [facility] Comment on above: Performed By: #### U AMIC #### [facility] [address] [address] [address] Karena Montero WBC 0-2 Abnormal NONE SEEN [facility] Comment on above: Performed By: #### U AMIC #### [facility] [address] [address] [address] Karena Montero Encounters Encounter Date Encounter Type Care Provider Facility Start: 12-12-2023 End: 12-12-2023 ambulatory KATALINA AICHHOLZ Not Available Start: 09-28-2023 End: 09-28-2023 Evaluation and management of inpatient LIV AZAR [facility] Start: 09-27-2023 End: 09-28-2023 Evaluation and management of inpatient LATOSHA CORBETT [facility] Start: 09-13-2023 End: 09-13-2023 ambulatory YSABEL TATE [facility] Start: 09-08-2023 End: 09-08-2023 ambulatory KATALINA MAGNUSHHOLZ Not Available Start: 09-05-2023 Refill Lady armstrong MD Work Phone: Radiation Oncology Comment on above: Refill Request Start: 08-09-2023 End: 08-10-2023 ambulatory KATALINA CATINA MAGNUSHHOLZ Facility:[facility] Start: 08-04-2023 Telephone encounter Lady Nugent MD Work Phone: Radiation Oncology Comment on above: Future Appointment Start: 08-04-2023 ambulatory KATALINA CATINA MAGNUSHHOLZ Facili ty:[facility] Start: 08-02-2023 ambulatory KATALINA CATINA MAGNUSHHOLZ Facili ty:[facility] Start: 07-07-2023 Refill Katalina Dennysz [employer] Work Phone: [facility] Comment on above: Acute non-recurrent sinusitis of other sinus (Primary Dx) Start: 06-09-2023 End: 06-09-2023 ambulatory KATALINA MAGNUSHHOLZ Not Available Start: 05-04-2023 Refill Lady armstrong MD Work Phone: Radiation Oncology Comment on above: Refill Request Start: 03-24-2023 End: 03-25-2023 ambulatory Lady Nugent MD Work Phone: Radiation Oncology Comment on above: History of thyroid c ancer (Primary Dx) Start: 03-24-2023 End: 03-24-2023 Telemedicine consultation with patient Lady Nugent MD Work Phone: [facility] Start: 03-24-2023 Telephone encounter Lady Nugent MD Work Phone: Cancer [facility] Comment on above: Appointment Confirma tion Start: 01-03-2023 Refill Michell Soto [facility] Work Phone: [facility] Comment on above: Refill Request Start: 11-18-2022 End: 11-19-2022 ambulatory Lady Nugent MD Work Phone: Radiation Oncology Comment on above: Thymic cancer (HCC) (Primary Dx); Thyroid cancer (HCC) Start: 11-18-2022 End: 11-19-2022 Telemedicine consultation with patient Lady Nugent MD Work Phone: [facility] Start: 11-18-2022 Telephone encounter Lady Nugent MD Work Phone: Radiation Oncology Comment on above: Future Appointment Start: 10-12-2022 End: 10-13-2022 ambulatory TARIK COLBERT Facility:[facility] Start: 09-09-2022 End: 09-09-2022 ambulatory Lady NUGENT Facility:[facility] Start: 09-09-2022 End: 09-09-2022 ambulatory Lady Nugent MD Work Phone: Radiation Oncology Comment on above: Thyroid cancer (HCC) (Primary Dx) Start: 09-09-2022 End: 09-09-2022 Telemedicine consultation with patient Lady Nugent MD Work Phone: [facility] Start: 09-08-2022 End: 09-09-[address] WILLY NUGENT Facility:[facility] Start: 09-08-2022 Telephone encounter Lady Nugent MD Work Phone: Hematology/Oncology Comment on above: Orders faxed Start: 09-06-2022 Patient encounter procedure [facility] Provider [facility] Start: 06-20-2022 End: 06-21-2022 ambulatory KAYLA BLOUNT . Facility:[facility] Start: 06-10-2022 End: 06-10-2022 ambulatory Lady Nugent MD Work Phone: Radiation Oncology Comment on above: Thyroid cancer (HCC) (Primary Dx) Start: 06-10-2022 End: 06-10-2022 Telemedicine consultation with patient Lady Anthony Nugent MD Work Phone: [facility] Start: 06-02-2022 End: 06-03-2022 ambulatory Lady Nugent MD Work Phone: Radiation Oncology Comment on above: Thyroid cancer (HCC) (Primary Dx) Start: 06-02-2022 End: 06-03-2022 Telemedicine consultation with patient Lady Anthony Nugent MD Work Phone: [facility] Start: 05-27-2022 End: 05-28-[address] WILYL NUGENT Facility:[facility] Start: 04-27-2022 End: 04-28-2022 ambulatory TARIK COLBERT Facility:[facility] Start: 04-16-2022 Refill Lady armstrong MD Work Phone: Radiation Oncology Comment on above: Refill Request Start: 02-18-2022 End: 02-19-2022 ambulatory [employer] KATALINA COLBERT Facility:[facility] Start: 02-04-2022 End: 02-05-2022 ambulatory Lady Nugent MD Work Phone: Radiation Oncology Comment on above: Thyroid cancer (HCC) (Primary Dx) Start: 02-04-2022 End: 02-05-2022 Telemedicine consultation with patient Lady Anthony Nugent MD Work Phone: [facility] Start: 02-03-2022 End: 02-03-2022 ambulatory TARIK COLBERT Facility:[facility] Start: 01-29-2022 End: 01-30-[address] WILLY NUGENT Facility:[facility] Start: 11-05-2021 End: 11-05-2021 ambulatory Lady Nugent MD Work Phone: Radiation Oncology Comment on above: Thyroid cancer (HCC) (Primary Dx) Start: 11-05-2021 End: 11-05-2021 Telemedicine consultation with patient Lady Nugent MD Work Phone: [facility] Start: 10-13-2021 End: 10-13-2021 ambulatory Lady Anthony Nugent MD Work Phone: Radiation Oncology Comment on above: Thyroid cancer (HCC) (Primary Dx) Start: 10-13-2021 End: 10-13-2021 Telemedicine consultation with patient Lady Anthony Nugent MD Work Phone: [facility] Start: 05-27-2020 End: 05-27-2020 Patient encounter procedure External Provider [facility] Start: 05-27-2020 Results Only External Provider Exter nal-NonCCF Procedures Date Procedure Procedure Detail Performing Clinician Start: 06-09-2023 Microscopic observat ion [Identifier] in Cervix by Cyto stain Katalina Colbert [employer] Work Phone: Start: 05-04-2023 Mammography Katalina bardales NP Work Phone: Start: 02-01-2022 Adult depression scr [...] Screening for malign ant neoplasm of cervix [facility] Start: 05-04-2024 Screening for malign ant neoplasm of breast Mammogram [facility] Start: 02-11-2024 DIABETES SCREEN DIABETES SCREEN [facility] Start: 02-11-2024 Diabetes Screening Diabetes Screenin lady [facility] Start: 02-05-2024 Influenza vaccination Influenz a Vaccine (Season Ended) [facility] Start: 09-08-2023 End: 09-08-2023 Patient encounter procedure 09/08/2023 6:00 PM EDT Office Visit [facility] [address] [place] [address] Katalina Colbert NP [address] [place] [address] [facility] Start: 08-22-2023 Screening for malign ant neoplasm of colon [facility] Start: 08-09-2023 Influenza vaccination Influenza Vacc ine (#1) [facility] Comment on above: Postponed from 02/04 (Other Patient Reasons) Start: 07-25-2023 End: 10-24-2023 THYROGLOBULIN BY MASS SPECTROMETRY THYROGLOBULIN BY MASS SPECTROMETRY Lab Routine History of thyroid cancer Expected: 07/25/2023, Expires: 10/24/2023 [facility] Work Phone: Comment on above: Expected: 07/25/2023 , Expires: 10/24/2023 Start: 07-25-2023 End: 03-24-2024 Thyrotropin [Units/volume] in Serum or Plasma TSH BLD Lab Routine History of thyroid cancer Expected: 07/25/2023, Expires: 03/24/2024 [facility] Work Phone: Comment on above: Expected: 07/25/2023 , Expires: 03/24/2024 Start: 07-25-2023 End: 03-24-2024 Thyroxine (T4) [Mass/volume] in Serum or Plasma T4/THYROXINE BLOOD Lab Routine History of thyroid cancer Expected: 07/25/2023, Expires: 03/24/2024 [facility] Work Phone: Comment on above: Expected: 07/25/2023 , Expires: 03/24/2024 Start: 07-25-2023 End: 03-24-2024 Triiodothyronine (T3) [Mass/volume] in Serum or Plasma T3 BLD Lab Routine History of thyroid cancer Expected: 07/25/2023, Expires: 03/24/2024 [facility] Work Phone: Comment on above: Expected: 07/25/2023 , Expires: 03/24/2024 Start: 06-06-2023 [facility] Start: 02-23-2023 End: 04-25-2023 Thyrotropin [Units/volume] in Serum or Plasma TSH BLD Lab Routine Thyroid cancer (HCC) Expected: 02/23/2023, Expires: 04/25/2023 [facility] Work Phone: Comment on above: Expected: 02/23/2023 , Expires: 04/25/2023 Start: 02-23-2023 End: 04-25-2023 Thyroxine (T4) [Mass/volume] in Serum or Plasma T4/THYROXINE BLOOD Lab Routine Thyroid cancer (HCC) Expected: 02/23/2023, Expires: 04/25/2023 [facility] Work Phone: Comment on above: Expected: 02/23/2023 , Expires: 04/25/2023 Start: 02-04-2023 Covid-19 Vaccine () Covid-19 Vaccine () [facility] Start: 02-04-2023 Influenza vaccination [facility] Start: 02-01-2023 Adult depression scr [facility] assessment DEPRESSION SCREENING [facility] Start: 11-09-2022 End: 09-10-2023 Thyrotropin [Units/volume] in Serum or Plasma TSH BLD Lab Routine Thyroid cancer (HCC) Expected: 11/09/2022, Expires: 09/10/2023 [facility] Work Phone: Comment on above: Expected: 11/09/2022 , Expires: 09/10/2023 Start: 11-09-2022 End: 09-10-2023 Thyroxine (T4) [Mass/volume] in Serum or Plasma T4/THYROXINE BLOOD Lab Routine Thyroid cancer (HCC) Expected: 11/09/2022, Expires: 09/10/2023 [facility] Work Phone: Comment on above: Expected: 11/09/2022 , Expires: 09/10/2023 Start: 11-09-2022 End: 09-10-2023 Triiodothyronine (T3) [Mass/volume] in Serum or Plasma T3 BLD Lab Routine Thyroid cancer (HCC) Expected: 11/09/2022, Expires: 09/10/2023 [facility] Work Phone: Comment on above: Expected: 11/09/2022 , Expires: 09/10/2023 Start: 09-28-2022 Adult depression scr eening assessment DEPRESSION SCREENING [facility] Start: 09-08-2022 End: 06-10-2023 Thyrotropin [Units/volume] in Serum or Plasma TSH BLD Lab Routine Thyroid cancer ([facility]) Expected: 09/08/2022, Expires: 06/10/2023 [facility] Work Phone: Comment on above: Expected: 09/08/2022 , Expires: 06/10/2023 Start: 09-08-2022 End: 06-10-2023 Thyroxine (T4) [Mass/volume] in Serum or Plasma T4/THYROXINE BLOOD Lab Routine Thyroid cancer ([facility] [facility]) Expected: 09/08/2022, Expires: 06/10/2023 [facility] Work Phone: Comment on above: Expected: 09/08/2022 , Expires: 06/10/2023 Start: 09-08-2022 End: 06-10-2023 Triiodothyronine (T3) [Mass/volume] in Serum or Plasma T3 BLD Lab Routine Thyroid cancer ([facility]) Expected: 09/08/2022, Expires: 06/10/2023 [facility] Work Phone: Comment on above: Expected: 09/08/2022 , Expires: 06/10/2023 Start: 06-06-2022 DEPRESSION ASSESSMENT DEPRESSION ASS ESSMENT [facility] Start: 05-14-2022 End: 07-14-2022 Thyroglobulin Ab [Units/volume] in Serum or Plasma THYROGLOBULIN AB Lab Routine Thyroid cancer ([facility]) Expected: 05/14/2022, Expires: 07/14/2022 [facility] Work Phone: Comment on above: Expected: 05/14/2022 , Expires: 07/14/2022 Start: 05-14-2022 End: 07-14-2022 Thyroglobulin and Thyrogobulin Ab panel - Serum or Plasma THYROGLOBULIN BLD Lab Routine Thyroid cancer ([facility]) Expected: 05/14/2022, Expires: 07/14/2022 [facility] Work Phone: Comment on above: Expected: 05/14/2022 , Expires: 07/14/2022 Start: 05-14-2022 End: 02-12-2023 Thyrotropin [Units/volume] in Serum or Plasma TSH BLD Lab Routine Thyroid cancer (HCC) Expected: 05/14/2022, Expires: 02/12/2023 [facility] Work Phone: Comment on above: Expected: 05/14/2022 , Expires: 02/12/2023 Start: 05-14-2022 End: 02-12-2023 Thyroxine (T4) [Mass/volume] in Serum or Plasma T4/THYROXINE BLOOD Lab Routine Thyroid cancer (HCC) Expected: 05/14/2022, Expires: 02/12/2023 [facility] Work Phone: Comment on above: Expected: 05/14/2022 , Expires: 02/12/2023 Start: 05-14-2022 End: 02-12-2023 Triiodothyronine (T3) [Mass/volume] in Serum or Plasma T3 BLD Lab Routine Thyroid cancer (HCC) Expected: 05/14/2022, Expires: 02/12/2023 [facility] Work Phone: Comment on above: Expected: 05/14/2022 , Expires: 02/12/2023 Start: 02-05-2022 End: 04-07-2022 T3 BLD T3 BLD Lab Routine Thyroid cancer (HCC) Expected: 02/05/2022, Expires: 04/07/2022 [facility] Work Phone: Comment on above: Expected: 02/05/2022 , Expires: 04/07/2022 Start: 02-05-2022 End: 04-07-2022 Thyrotropin [Units/volume] in Serum or Plasma TSH BLD Lab Routine Thyroid cancer (HCC) Expected: 02/05/2022, Expires: 04/07/2022 [facility] Work Phone: Comment on above: Expected: 02/05/2022 , Expires: 04/07/2022 Start: 02-05-2022 End: 04-07-2022 Thyroxine (T4) [Mass/volume] in Serum or Plasma T4/THYROXINE BLOOD Lab Routine Thyroid cancer (HCC) Expected: 02/05/2022, Expires: 04/07/2022 [facility] Work Phone: Comment on above: Expected: 02/05/2022 , Expires: 04/07/2022 Start: 02-04-2022 Influenza vaccination [facility] Start: 12-16-2021 End: 02-15-2022 Thyrotropin [Units/volume] in Serum or Plasma TSH BLD Lab Routine Thyroid cancer (HCC) Expected: 12/16/2021, Expires: 02/15/2022 [facility] Work Phone: Comment on above: Expected: 12/16/2021 , Expires: 02/15/2022 Start: 12-16-2021 End: 02-15-2022 Thyroxine (T4) [Mass/volume] in Serum or Plasma T4/THYROXINE BLOOD Lab Routine Thyroid cancer (HCC) Expected: 12/16/2021, Expires: 02/15/2022 [facility] Work Phone: Comment on above: Expected: 12/16/2021 , Expires: 02/15/2022 Start: 06-06-2021 DEPRESSION ASSESSMENT DEPRESSION ASS ESSMENT [facility] Start: 02-05-2020 Influenza vaccination INFLUENZA (#1) [facility] Start: 04-26-2018 Hemoglobin A1c measurement Frdea betes: Hemoglobin A1C [facility] Start: 2017 Screening for malign ant neoplasm of colon [facility] Start: 2017 SHINGRIX VACCINE (1 of 2) MOCK GRIX VACCINE (1 of 2) [facility] Start: 01-25-2012 COLOGUARD (FIT-DNA) COLOGUARD (FIT-D NA) [facility] Start: 01-25-2012 Colonoscopy COLONOSCOPY [facility] Start: 01-25-2012 COLORECTAL CANCER SCREENING COLORECTAL CANCER SCREENING [facility] Start: 01-25-[address] COLONOGRAPHY [facility] Start: 01-25-2012 DIABETES SCREEN DIABETES SCREEN [facility] Start: 01-25-2012 FECAL OCCULT BLOOD FECAL OCCULT BLOO D [facility] Start: 01-25-2012 Lipid 1996 panel - S khushbu or Plasma Lipid Screening [facility] Start: 01-25-2012 Lipid panel Lipid Screening [facility] Start: 01-25-2012 LIPID SCREEN LIPID SCREEN [facility] Start: 01-25-2012 Screening for malign ant neoplasm of colon [facility] Start: 01-25-2012 SIGMOIDOSCOPY SIGMOIDOSCOPY [facility] Start: 2007 Mammography [facility] Start: 2007 Screening for malign ant neoplasm of breast Mammogram Screening [facility] Start: 1997 HPV TESTING HPV TESTING [facility] Start: 1997 Screening for malign ant neoplasm of cervix [facility] Start: 01-25-1988 PAP TESTING PAP TESTING [facility] Start: 01-25-1988 Screening for malign ant neoplasm of cervix Pap Testing [facility] Start: 1986 Hepatitis B Vaccine (1 of 3 - 19+ 3-dose series) Hepatitis B Vaccine (1 of 3 - 19+ 3-dose series) [facility] Start: 1986 Urine microalbumin profile [facility] Start: 1986 Urine screening for protein Diabetes: Urine Protein Screening [facility] Start: 1985 HEPATITIS C SCREENING HEPATITIS C [facility] Start: 1985 Hepatitis C screening Hepatitis C [facility] Start: 1985 HIV SCREENING HIV SCREENING [facility] Start: 1985 HIV screening HIV Screening [facility] Start: 1977 Glaucoma screening Diabetes: R etinopathy Screening [facility] Start: 1973 PNEUMOCOCCAL (1 - PCV) PNEUMOCOCCAL (1 - PCV) [facility] Start: 01-25-1972 COVID-19 VACCINE (#1) COVID-19 VACCI NE (#1) [facility] Start: 1967 COVID-19 VACCINE (#1) COVID-19 VACCI NE (#1) [facility] Start: 1967 HEPATITIS B (1 of 3 - 3-dose series) HEPATITIS B (1 of 3 - 3-dose series) [facility] Start: 1967 Hepatitis B Vaccine (1 of 3 - 3-dose series) Hepatitis B Vaccine (1 of 3 - 3-dose series) [facility] Start: 1967 Screening for malign ant neoplasm of colon [facility] Immunizations Immunization Date Immunization Notes Care Provider [facility] 03-25-2020 influenza virus vacc ine, unspecified formulation SOFY Nugent MD Work Phone: [facility] Payers Date Payer Category Payer Unknown [id number] 2020 Private Health Insurance [facility] CHOICE PLUS [id number] 2020-Present [phone] [address] [place] [address] HMO [id number] 2020 Private Health Insurance [id number] 2020 Unknown [id number] 2019 Unknown JAIDEN SIEGEL PPO [id number] 2019-Present PPO [id number] 1967 Unknown [id number] .593 1967 Unknown [id number] 2..[id number] .593 1967 Unknown [id number] [id number] .593 1967 Unknown [id number] 2.16.840.1.815653.3.579.2 .593 1967 Unknown [id number] 2.16.840.1.850859.3.579.2 .593 1967 Unknown [id number] 2.16.840.1.870304.3.579.2 .593 1967 Unknown [id number] 2.16.840.1.499246.3.579.2 .593 1967 Unknown [id number] 2.16.840.1.007006.3.579.2 .593 1967 Unknown [id number] 2.16.840.1.039929.3.579.2 .593 1967 Unknown [id number] 2.16.840.1.980093.3.579.2 .593 1967 Unknown [id number] 2.16.840.1.959994.3.579.2 .1286 1967 Unknown [id number] 2.16.840.1.658027.3.579.2 .1286 1967 Unknown [id number] 2.16.840.1.814138.3.579.2 .1286 1967 Unknown [id number] 2.16.840.1.754534.3.579.2 .1286 1967 Unknown [id number] 2.16.840.1.987831.3.579.2 .1286 1967 Unknown [id number] 2.16.840.1.774027.3.579.2 .1259 1967 Unknown [id number] [id number] .1259 1967 Unknown [id number] .1259 1959 Private Health Insurance [id number] Unknown [id number] Social History Date Type Detail Facility Start: 05-11-2012 End: 05-29-2020 Tobacco smoking status NHIS Former smoker [facility] Work Phone: History of tobacco use Cigarette Smoker [facility] Start: 05-11-2012 Alcohol intake Not Asked [facility] Start: 05-11-2012 Tobacco Comment quit smoking Jun 28, 2009 [facility] Start: 1965 Sex Assigned At Not on file [facility] Exposure to SARS-CoV -2 (event) Unable to assess [facility] Start: 05-11-2012 End: 11-18-2022 Cigarettes smoked current (pack per day) - Reported 1 [facility] Start: 05-11-2012 End: 05-29-2020 Tobacco use and exposure Smokeless tobacco non-user [facility] Work Phone: Start: 09-16-2020 End: 06-09-2023 Alcohol intake Ex-drinker (finding) [facility] History of tobacco use Current smoker [facility] Start: 01-25-2022 End: 02-04-2022 Exposure to SARS-CoV-2 (event) Not sure [facility] Start: 09-06-2022 End: 11-18-2022 Patient Health Questionnaire 2 item (PHQ-2) [Reported] [facility] Adult Depression Screening Assessment 0 [facility] Start: 07-20-2020 Gender identity Identifies as female gender (finding) [facility] Start: 07-20-2020 Sexual orientation Heterosexual (finding) [facility] Within the last year , have you [...] - these days [OSQ] To some extent [facility] (I/We) worried wheth er (my/our) food would run out before (I/we) got money to buy more. Never true [facility] Start: 06-09-2023 Tobacco Comment Last smoked: 5-10 years ago [facility] Start: 06-09-2023 Alcohol Comment caffeine more than 4 cups per day [facility] Start: 1965 Sex Assigned At Female [facility] Medical Equipment Procedure Code Equipment Code Equipment Origin al Text Equipment Identifier Dates 0---Anchr Sut 4.5mm Pshlk nl - [id number] Start: 11-29-2012 Comment on above: Description: SUTURE ANCHOR Inject 1 each under the skin in the morning and 1 each before bedtime. [id number] Start: 04-20-2023 Clinical Notes 10-16-2021 to 08-09-2023 Telephone Encounter - Kobi Hammonds - 08/04/2023 1:01 PM ESTTelephone Encounter - Argenis Harris RN - 08/04/2023 12:00 PM ESTTelephone Encounter - Argenis Harris RN - 05/04/2023 1:20 PM EST Note Date & Type Note Facility 08-09-2023 Note HNO ID: [id number] Author: Lady NUGENT MD Service: ? Author Type: Physician Type: Progress Notes Filed: 08/09/2023 15:32 Note Text: AMBULATORY TELEPHONE VISIT Call made on 03/24/23 Katalina Hutchins has consented to this telephone encounter. 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 Patient received I-131 [...] right with lymph node involvement, stage I [id number], status post total thyroidectomy. Plan: TSH appropriate. Clinically doing well without issues. T4 slightly elevated however given or her TSH shows and lack of hyperthyroid symptoms recommend keeping same dose and recheck labs in 6 months. Total Time Spent: 5 minutes Lady Nugent MD [facility] 08-04-2023 Miscellaneous Notes Formattin g of this note might be different from the original. Changed appt Spoke to pt as thyroglobulin is not back yet from [facility]. They are unsure when it will result. PSS- please change phone visit to Tuesday, 08/08 at 3:30pm. Thank you documented in this encounter [facility] 05-04-2023 Miscellaneous Notes Formattin g of this note might be different from the original. Please review and sign if agreeable. Argenis Harris RN documented in this encounter [facility] 03-24-2023 Note HNO ID: [id number] Author: Lady Nugent MD Service: ? Author Type: Physician Type: Progress Notes Filed: 03/24/2023 3:13 PM Note Text: AMBULATORY TELEPHONE VISIT Call made on 03/24/23 Katalina Hutchins has consented to this telephone encounter. 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 Patient received I-131 [...] right with lymph node involvement, stage I [id number], status post total thyroidectomy. Plan: TSH improved, a little higher than ideal however given T4 elevation recommend maintaining current Synthroid dose. Patient without any clinical issues related to this. Plan to recheck labs in 4 months. Total Time Spent: 6 minutes Lady Nugent MD [facility] 03-24-2023 Miscellaneous Notes Formattin g of this note might be different from the original. Images from the original note were not included. Mailed patient her lab tests she gets elsewere and scheudled appt for her Lady Nugent MD [facility] Nurse [place]; Kobi Hammonds See patient back or televisit 4 months with labs documented in this encounter [facility] 03-24-2023 History of Presen t illness Narrative AMBULATORY TELEPHONE VISIT Call made on 03/24/23 Katalina Hutchins has consented to this telephone encounter. 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 Patient received I-131 [...] right with lymph node involvement, stage I [id number], status post total thyroidectomy. Plan: TSH improved, a little higher than ideal however given T4 elevation recommend maintaining current Synthroid dose. Patient without any clinical issues related to this. Plan to recheck labs in 4 months. Total Time Spent: 6 minutes Lady Nugent MD documented in this encounter [facility] 11-18-2022 Note HNO ID: [id number] Author: Lady Nugent MD Service: ? Author Type: Physician Type: Progress Notes Filed: 11/23/2022 9:03 AM Note Text: AMBULATORY TELEPHONE VISIT Katalina Hutchins has consented to this telephone encounter. 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 Patient received I-131 [...] right with lymph node involvement, stage I [id number], status post total thyroidectomy. Plan: TSH improved, still high. Recommend maintaining Synthroid 200 mcg daily. Recheck in 3-4 months. Total Time Spent: 4 minutes Lady Nugent MD Call made on 11/23/22 [facility] 11-18-2022 Miscellaneous Notes Formattin g of this note might be different from the original. Call placed to pt due to not having labs prior to phone visit with Dr Nugent. JESU requesting she CB to reschedule after she Is able to have labs. Argenis Harris RN documented in this encounter [facility] 11-18-2022 History of Presen t illness Narrative AMBULATORY TELEPHONE VISIT Katalina Hutchins has consented to this telephone encounter. 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 Patient received I-131 [...] right with lymph node involvement, stage I [id number], status post total thyroidectomy. Plan: TSH improved, still high. Recommend maintaining Synthroid 200 mcg daily. Recheck in 3-4 months. Total Time Spent: 4 minutes Lady Nugent MD Call made on 11/23/22 documented in this encounter [facility] 09-09-2022 Note HNO ID: [id number] Author: Lady Nugent MD Service: ? Author Type: Physician Type: Progress Notes Filed: 09/09/2022 3:12 PM Note Text: AMBULATORY TELEPHONE VISIT Katalina Hutchins has consented to this telephone encounter. 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 Patient received I-131 [...] right with lymph node involvement, stage I [id number], status post total thyroidectomy. Plan: TSH needs more suppression. Recommend increasing Synthroid to 200 mcg daily. Recheck in 6 to 8 weeks. Encourage patient to call should she feel she is not tolerating this dose. Total Time Spent: 6 minutes Lady Nugent MD [facility] 09-09-2022 History of Presen t illness Narrative AMBULATORY TELEPHONE VISIT Katalina Hutchins has consented to this telephone encounter. 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 Patient received I-131 [...] right with lymph node involvement, stage I [id number], status post total thyroidectomy. Plan: TSH needs more suppression. Recommend increasing Synthroid to 200 mcg daily. Recheck in 6 to 8 weeks. Encourage patient to call should she feel she is not tolerating this dose. Total Time Spent: 6 minutes Lady Nugent MD documented in this encounter [facility] 09-08-2022 Miscellaneous Notes Formattin g of this note might be different from the original. Lab orders faxed to [facility] per patient request. documented in this encounter [facility] 06-10-2022 History of Presen t illness Narrative AMBULATORY TELEPHONE VISIT Katalina Hutchins has consented to this telephone encounter. 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 Patient received I-131 [...] right with lymph node involvement, stage I [id number], status post total thyroidectomy. Plan: Labs okay with the exception of TSH. Patient states that she had ran out of her prescription will be for so this is not reliable. Recommend continue the current dose and recheck in 3 months. Otherwise patient is doing well. Thyroglobulin remains undetectable. Total Time Spent: 7 minutes Lady Nugent MD documented in this encounter [facility] 06-02-2022 History of Presen t illness Narrative AMBULATORY TELEPHONE VISIT Left message. documented in this encounter [facility] 04-16-2022 Miscellaneous Notes Formattin g of this note might be different from the original. Levothyroxine refill request received from [facility] pharmacy via fax. Order pending your approval. [...] Kaitlynn Carreon LPN documented in this encounter [facility] 02-04-2022 History of Presen t illness Narrative AMBULATORY TELEPHONE VISIT Persons Present: Did not get a hold of patient.(error) I did get a hold of pt by phone. 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 Patient received I-131 [...] right with lymph node involvement, stage I [id number], status post total thyroidectomy. Plan: Given mixed results with T4 T3 and TSH plan to hold current dose. Recheck 2 to 3 months. Total Time Spent:6 minutes Lady Nugent MD documented in this encounter [facility] 11-05-2021 History of Presen t illness Narrative AMBULATORY TELEPHONE VISIT Persons Present: Did not get a hold of patient. 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 Patient received I-131 [...] right with lymph node involvement, stage I [id number], status post total thyroidectomy. Plan: TSH level much improved however still little higher than I would like however given her elevated T4 level plan to keep patient at her current dose and recheck in 2 to 3 months. Total Time Spent:6 minutes Lady Nugent MD documented in this encounter [facility] 10-16-2021 History of Presen t illness Narrative Unless she has immediate concerns or questions okay to push out 2 months AMBULATORY TELEPHONE VISIT Persons Present: Did not get a hold of patient. 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 Patient received I-131 [...] right with lymph node involvement, stage I [id number], status post total thyroidectomy. Plan: TSH level much improved however still little higher than I would like however given her elevated T4 level plan to keep patient at her current dose and recheck in 2 to 3 months. Total Time Spent: 0 minutes Lady Nugent MD documented in this encounter [facility] Evaluation note Diagnosis Thyroid cancer (HCC)- Primary Malignant neoplasm of thyroid gland [facility] Diagnosis Thyroid cancer (HCC)- Primary Malignant neoplasm of thyroid gland [facility] Diagnosis Thyroid cancer (HCC)- Primary Malignant neoplasm of thyroid gland [facility] Diagnosis Thyroid cancer (HCC)- Primary Malignant neoplasm of thyroid gland [facility] Diagnosis Thyroid cancer (HCC)- Primary Malignant neoplasm of thyroid gland documented in this encounter [facility] note* Diagnosis 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 Thyroid cancer (HCC) Malignant neoplasm of thyroid gland [facility] Diagnosis History of thyroid cancer- Primary Personal history of malignant neoplasm of thyroid documented in this encounter [facility] note* Diagnosis Acute non-recurrent sinusitis of other [...] or prosecute any alcohol or drug abuse patient.[facility] the event this information is protected by the Federal Confidentiality of Alcohol and Drug Abuse Patient Records regulations: The Federal rules restrict any use of the information to criminally investigate or prosecute any alcohol or drug abuse patient.[facility] the event this information is protected by the Federal Confidentiality of Alcohol and Drug Abuse Patient Records regulations: The Federal rules restrict any use of the information to criminally investigate or prosecute any alcohol or drug abuse patient.[facility] the event this information is protected by the Federal Confidentiality of Alcohol and Drug Abuse Patient Records regulations: The Federal rules restrict any use of the information to criminally investigate or prosecute any alcohol or drug abuse patient.[facility] the event this information is protected by the Federal Confidentiality of Alcohol and Drug Abuse Patient Records regulations: The Federal rules restrict any use of the information to criminally investigate or prosecute any alcohol or drug abuse patient.[facility] the event this information is protected by the Federal Confidentiality of Alcohol and Drug Abuse Patient Records regulations: The Federal rules restrict any use of the information to criminally investigate or prosecute any alcohol or drug abuse patient.[facility] the event this information is protected by the Federal Confidentiality of Alcohol and Drug Abuse Patient Records regulations: The Federal rules restrict any use of the information to criminally investigate or prosecute any alcohol or drug abuse patient.[facility] the event this information is protected by the Federal Confidentiality of Alcohol and Drug Abuse Patient Records regulations: The Federal rules restrict any use of the information to criminally investigate or prosecute any alcohol or drug abuse patient.[facility] the event this information is protected by the Federal Confidentiality of Alcohol and Drug Abuse Patient Records regulations: The Federal rules restrict any use of the information to criminally investigate or prosecute any alcohol or drug abuse patient.[facility] the event this information is protected by the Federal Confidentiality of Alcohol and Drug Abuse Patient Records regulations: The Federal rules restrict any use of the information to criminally investigate or prosecute any alcohol or drug abuse patient.[facility] the event this information is protected by the Federal Confidentiality of Alcohol and Drug Abuse Patient Records regulations: The Federal rules restrict any use of the information to criminally investigate or prosecute any alcohol or drug abuse patient.TrihealthIn the event this information is protected by the Federal Confidentiality of Alcohol and Drug Abuse Patient Records regulations: The Federal rules restrict any use of the information to criminally investigate or prosecute any alcohol or drug abuse patient.TrihealthIn the event this information is protected by the Federal Confidentiality of Alcohol and Drug Abuse Patient Records regulations: The Federal rules restrict any use of the information to criminally investigate or prosecute any alcohol or drug abuse patient.TrihealthIn the event this information is protected by the Federal Confidentiality of Alcohol and Drug Abuse Patient Records regulations: The Federal rules restrict any use of the information to criminally investigate or prosecute any alcohol or drug abuse patient.TrihealthIn the event this information is protected by the Federal Confidentiality of Alcohol and Drug Abuse Patient Records regulations: The Federal rules restrict any use of the information to criminally investigate or prosecute any alcohol or drug abuse patient.TrihealthIn the event this information is protected by the Federal Confidentiality of Alcohol and Drug Abuse Patient Records regulations: The Federal rules restrict any use of the information to criminally investigate or prosecute any alcohol or drug abuse patient.TrihealthIn the event this information is protected by the Federal Confidentiality of Alcohol and Drug Abuse Patient Records regulations: The Federal rules restrict any use of the information to criminally investigate or prosecute any alcohol or drug abuse patient.TrihealthIn the event this information is protected by the Federal Confidentiality of Alcohol and Drug Abuse Patient Records regulations: The Federal rules restrict any use of the information to criminally investigate or prosecute any alcohol or drug abuse patient.[facility] Reason for Visit (unrecogniz ed section and content) Reason Comments Follow Up Specialty Diagnoses / Procedures Referred By Carlos t Referred To Contact Radiation Oncology / RADIATION ONCOLOGY Diagnoses phone visit after labs [phone] labs drawn at [facility] Procedures PROVIDER SPECIALTY PHONE CALL Lady Nugent MD [address] [place] [address] [place] [address] Lady Nugent MD [address] [place] [address] [place] [address] Referral ID Status Reason Start Date Expiration Date V isits Requested Visits Authorized [id number] Pending Review 09/29/2021 12/28/2021 99 99 Reason [...] Care Teams (unrecognized sec tion and content) Health And Safety Advisor Relationship Specialty Start Date End Date Katalina Colbert, [employer] PCP - General Family Practice 11/26/14 Lady Nugent MD [address] [facility] [facility] [place] [address] Radiation Oncology 05/28/20 Health And Safety Advisor Relationship Specialty Start Date End Date Katalina Colbert, [facility] PCP - General Family Medicine 11/26/14 Lady Nugent MD [address] [facility] [facility] [place] [address] Radiation Oncology 05/28/20 Health And Safety Advisor Relationship Specialty Start Date [facility] PCP - General Family Medicine 11/26/14 Lady Nugent MD [address] [facility] [place] [address] Radiation Oncology 05/28/20 Health And Safety Advisor Relationship Specialty Start Date End Date [facility] PCP - General Family Medicine 11/26/14 Lady Nugent MD [address] [facility] [place] [address] Radiation Oncology 05/28/20 Health And Safety Advisor Relationship Specialty Start Date End Date Katalina Colbert, [employer] PCP - General Family Medicine 11/26/14 Lady Nugent MD [address] [facility] [facility] [facility] [place] [address] Radiation Oncology 05/28/20 Health And Safety Advisor Relationship Specialty Start Date End Date Katalina Colbert [employer] PCP - General Family Medicine 11/26/14 Lady Nugent MD [address] [facility] [place] [address] Radiation Oncology 05/28/20 Health And Safety Advisor Relationship Specialty Start Date End [facility] PCP - General Family Medicine 11/26/14 Lady Nugent MD [address] [facility] [place] [address] Radiation Oncology 05/28/20 Health And Safety Advisor Relationship Specialty Start Date End Date [facility] [employer] PCP - General Family Medicine 11/26/14 Lady Nugent MD [address] [facility] [place] [address] Radiation Oncology 05/28/20 Health And Safety Advisor Relationship Specialty Start Date End Date Katalina Colbert [employer] PCP - General Family Medicine 11/26/14 Lady Nugent MD [address] [facility] [place] [address] Radiation Oncology 05/28/20 Health And Safety Advisor Relationship Specialty Start Date End Date [facility] [employer] PCP - General Family Medicine 11/26/14 Lady Nugent MD [address] [place] [address] Radiation Oncology 05/28/20 Health And Safety Advisor Relationship Specialty Start Date End Date Kervin Stevens MD [address] [place] [address] PCP - General Family Medicine 06/01/23 Katalina Colbert NP [address] [place] [address] Nurse Practitioner Family Medicine 03/06/23 INFORMATION SOURCE (unrecogn ized section and content) DATE CREATED AUTHOR 10/17/2022 [facility] DATE CREATED AUTHOR AUTHOR'S ORGANIZ ATION 08/10/2023 [facility] DATE CREATED AUTHOR AUTHOR'S ORGANIZ ATION 09/14/2023 [facility] DATE CREATED AUTHOR AUTHOR'S ORGANIZ ATION 10/01/2023 [facility] DATE CREATED AUTHOR AUTHOR'S ORGANIZ ATION 12/20/2023 [facility] EPIC FOR RECORDS PERTAINING TO PATIENTS [...] BE BASED ON THE PRIMARY CLINICAL RECORDS. [email or web address] provides no warranty or guarantee of the accuracy or completeness of information in this document.
== END 2024-01-18 18:12 | disposition home or self-care (01) ==
LOC: RAD 18:13
PROVIDERS: PCP Nurse Practitioner; Visit Provider Nurse Practitioner
DX: M54.16 Radiculopathy, lumbar region (principal); M25.552 Pain in left hip
CPT/HCPCS: 72100; 73502

== ENCOUNTER 2024-03-15 13:53 | Outpatient (OUT) | payer OTHER, SELFPAY ==
[2024-03-15 14:56] LABS: Thyroid Stimulating Hormone 8.949 uIU/mL (0.358-3.740)
[2024-03-16 08:12] LABS: Triiodothyronine (T3) 99 ng/dL (71-180)
== END 2024-03-15 13:54 | disposition home or self-care (01) ==
LOC: LAB 13:53
PROVIDERS: PCP Nurse Practitioner; Visit Provider Radiology Radiation Oncology
DX: Z85.850 Personal history of malignant neoplasm of thyroid (principal)
CPT/HCPCS: 36415; 84436; 84443; 84480

== ENCOUNTER 2024-06-12 14:29 | Outpatient (OUT) | payer OTHER, SELFPAY ==
--- NOTE | 2024-06-12 14:32 | MM_ITS ---
Patient Name: DEMETRA HUTCHINS MR#: [id number] : 1965 Exam Date: 06/12/2024 Ordering Doctor: TARIK oClbert CNP RADIOLOGY REPORT PROCEDURE: MM TOMOSYNTHESIS SCREENING BI COMPARISON: MM TOMOSYNTHESIS SCREENING BI, 04/29/2023. MG MAMM SCREEN 3D FRANCI CAD, 04/27/2022. MG MAMM SCREEN 3D FRANCI CAD, 11/28/2020. MG MAMM FRANCI DIAG W CAD DIG, 03/15/2013. INDICATIONS: Screening for malignant neoplasm Calculator Name NCI Breast Cancer Risk Assessment Tool 5 Year Breast Cancer Risk 1.60% Lifetime Breast Cancer Risk 9.50% Personal Breast Cancer No Personal Ovarian Cancer No Treatments None Family Cancers Grandmother-paternal with breast cancer at age ~50; Mother with uterine cancer at age 26. LOCATION: [facility] BREAST COMPOSITION: There are scattered areas of fibroglandular density. FINDINGS: DIAGNOSTIC CATEGORY 2--BENIGN FINDING: RIGHT BREAST: No significant suspicious finding. No significant change has occurred. LEFT BREAST: No significant suspicious finding. Stable benign-appearing lymph node within posterior upper-outer quadrant. No significant change has occurred. RECOMMENDATIONS: ROUTINE MAMMOGRAM AND CLINICAL EVALUATION IN 12 MONTHS. PLEASE NOTE: A NORMAL MAMMOGRAM DOES NOT EXCLUDE THE POSSIBILITY OF BREAST CANCER. A CLINICALLY SUSPICIOUS PALPABLE LUMP SHOULD BE BIOPSIED. Dictated by: Matias Edwards M.D. on 06/12/2024 at 16:41 Approved by: Matias Edwards M.D. on 06/12/2024 at 16:43
== END 2024-06-12 14:30 | disposition home or self-care (01) ==
LOC: MAMMO 14:29
PROVIDERS: PCP Nurse Practitioner; Visit Provider Nurse Practitioner
DX: Z12.31 Encounter for screening mammogram for malignant neoplasm of breast (principal); Z80.3 Family history of malignant neoplasm of breast; Z80.49 Family history of malignant neoplasm of other genital organs
CPT/HCPCS: 77063; 77067

== ENCOUNTER 2024-06-12 15:01 | Outpatient (OUT) | payer OTHER, SELFPAY ==
[2024-06-12 15:45] LABS: Thyroid Stimulating Hormone 2.668 uIU/mL (0.358-3.740)
== END 2024-06-12 15:02 | disposition home or self-care (01) ==
LOC: LAB 15:01
PROVIDERS: PCP Nurse Practitioner; Visit Provider Radiology Radiation Oncology
DX: Z85.850 Personal history of malignant neoplasm of thyroid (principal); Z12.31 Encounter for screening mammogram for malignant neoplasm of breast; Z80.3 Family history of malignant neoplasm of breast; Z80.49 Family history of malignant neoplasm of other genital organs
CPT/HCPCS: 36415; 77063; 77067; 84436; 84443

== ENCOUNTER 2024-10-30 13:34 | Emergency (ER) | payer OTHER, SELFPAY ==
[2024-10-30 13:45] VITALS: BP 103/88; PULSE 78; TEMP 37.1; O2SAT 97; BMI 48.1
--- NOTE | 2024-10-30 13:51 | ED.CHESTPAI1 ---
HPI - Chest Pain General Chief Complaint: Chest Pain Stated Complaint: CHEST PAIN Time Seen by Provider: 10/30/24 13:40 Source: patient Mode of arrival: walk-in Limitations: no limitations History of Present Illness HPI narrative: 59 year old female presents to the ED for right-sided chest pain. Onset was 2-3 days ago. Denies fever, chills, injury, cough, dizziness. Reports feeling short of breath today. The pain is worse with movement and inspiration. Denies recent travel or surgery. She took 81 mg asa this morning. Related Data Allergies Allergy/AdvReac Type Severity Reaction Status Date / Time latex Allergy Mild Rash Verified 10/30/24 13:44 Review of Systems ROS Constitutional Denies: fever, chills or fatigue Ears, nose, mouth, and throat Denies: throat pain or neck pain Cardiovascular Reports: chest pain Respiratory Denies: shortness of breath or cough Gastrointestinal Denies: abdominal pain, nausea or vomiting Musculoskeletal Denies: back pain or neck pain Integumentary/Breast Denies: rash Neurological Denies: headache or dizziness PFSH PFSH Social History Little interest or pleasure in doing things: not at all Feeling down, depressed, or hopeless: not at all Exam Constitutional Vital Signs, click to edit/add: Last Vital Signs Temp 98.8 F 10/30/24 13:45 Pulse 84 10/30/24 15:57 Resp 18 10/30/24 15:57 BP 103/67 10/30/24 15:57 Pulse Ox 98 10/30/24 15:57 O2 Del Method Room Air 10/30/24 13:45 Common normals: no apparent distress and oriented x3 General appearance: cooperative HENMT Common normals: moist oral mucous membranes Neck & C-Spine Common normals: no meningeal signs Chest Chest: symmetrical chest wall rise Respiratory Common normals: normal respiratory effort and clear to auscultation bilaterally Effort & inspection: able to speak in complete sentences and symmetric chest movement Cardio Common normals: regular rate and regular rhythm Extremity General: no edema Neuro Common normals: oriented x3 and moves all extremities Sensorium/orientation: awake and alert Speech: speech normal Course Vital Signs Vital signs: Vital Signs Temperature 98.8 F 10/30/24 13:45 Pulse Rate 78 10/30/24 13:45 Respiratory Rate 24 H 10/30/24 13:45 Blood Pressure 103/88 10/30/24 13:45 Pulse Oximetry 97 10/30/24 13:45 Oxygen Delivery Method Room Air 10/30/24 13:45 Temperature 98.8 F 10/30/24 13:45 Pulse Rate 84 10/30/24 15:57 Respiratory Rate 18 10/30/24 15:57 Blood Pressure 103/67 10/30/24 15:57 Pulse Oximetry 98 10/30/24 15:57 Oxygen Delivery Method Room Air 10/30/24 13:45 MDM - Chest Pain MDM Narrative Medical decision making narrative: Laboratory studies were unremarkable, including troponin x2. The patient's pain was worse with movement and inspiration. Findings were discussed. Follow up with pcp for a recheck, further evaluation and treatment. Return precautions were discussed. Differential Diagnosis Differential diagnosis: Likely stable angina, unstable angina pectoris, atypical chest pain, st elevation myocardial infarction, costochondritis and chest pain Medical Records Data Attestation: I reviewed the patient's medical records. Lab Data Attestation: I reviewed the patient's lab results. Labs: Lab Results 10/30/24 10/30/24 Range/Units 13:47 15:05 WBC 6.5 (4.0-11.0) 10^3/uL RBC 4.89 (4.20-5.40) 10^6/uL Hgb 13.3 (12.0-16.0) g/dL Hct 40.1 (36.0-48.0) % MCV 82.0 (81.0-99.0) fL MCH 27.2 (26.7-34.0) pg MCHC 33.2 (29.9-35.2) g/dL RDW 15.5 H (11.0-15.0) % Plt Count 191 (150-450) 10^3/uL MPV 10.9 (9.5-13.5) fL Neut % (Auto) 61.8 (43.0-75.0) % Lymph % (Auto) 26.1 (20.5-60.0) % [place] % (Auto) 8.2 (1.7-12.0) % Eos % (Auto) 2.2 (0.9-7.0) % Baso % (Auto) 0.9 (0.2-2.0) % Neut # (Auto) 4.0 (1.4-6.5) 10^3/uL Lymph # (Auto) 1.7 (1.2-3.8) 10^3/uL [place] # (Auto) 0.5 (0.3-0.8) 10^3/uL Eos # (Auto) 0.1 (0.0-0.7) 10^3/uL Baso # (Auto) 0.1 (0.0-0.1) 10^3/uL Abs Immat Gran (auto) 0.05 H (0.00-0.03) 10^3/uL Imm/Tot Granulo (auto) 0.8 H (0.0-0.5) % Sodium 137 (136-145) mmol/L Potassium 4.2 (3.5-5.1) mmol/L Chloride 98 (98-107) mmol/L Carbon Dioxide 27.4 (21.0-32.0) mmol/L Anion Gap 15.8 BUN 16.0 (7.0-18.0) mg/dL Creatinine 0.91 (0.55-1.02) mg/dL Est GFR ( Amer) >60 (>=60 mL/min/1.73m^2) Est GFR (Non-Af Amer) >60 (>=60 mL/min/1.73m^2) BUN/Creatinine Ratio 17.6 Glucose 208 H (74-106) mg/dL Calcium 10.0 (8.5-10.1) mg/dL Troponin I High Sens 16.8 16.4 (4.0-51.3) pg/mL Imaging Data Chest x-ray: Radiologist's impression: ITS Impressions Chest X-Ray 10/30/24 13:54 IMPRESSION: No acute process. Impression dictated by: Raghav Shaffer M.D. 10/30/2024 2:09 PM Dictation Location: [place] [address] Electronically authenticated by: [id number] Y Date: 10/30/2024 14:09 ECG Data Attestation: ?I have reviewed the pertinent ECG results. (EKG was reviewed by the attending physician. It showed sinus rhythm at a rate of 76. No acute ST segment changes.) Interpretation: Measurements Intervals [place] Rate: 76 P: 55 IA: 156 QRS: 38 QRSD: 88 T: 68 QT: 372 QTc: 403 Interpretive Statements 1100 Sinus rhythm 9110 normal ECG No previous ECG available for comparison Heart Score History: Slightly/Non-Suspicious ECG: Normal Age: >45-<65 years Risk Factors: 1 or 2 Risk Factors Troponin: <Normal Limit Total Heart Score Recommendations & Risks:: 2 Discharge Plan Discharge Chief Complaint: Chest Pain Clinical Impression: Atypical chest pain Patient Disposition: Home, Self-Care Time of Disposition Decision: 15:43 Condition: Good Mode of Transportation: Private Vehicle Print Language: Sinhala Instructions: Chest Pain (ED), Chest Wall Pain (ED) Additional Instructions: Return to the ER for worsening symptoms. Referrals: Katalina Colbert NP [Primary Care Provider, Family Practice] - 1 week Discharge Date/Time: 10/30/24 15:58
--- NOTE | 2024-10-30 13:54 | ECG_ITS ---
[facility] Test Date: 2024-10-30 Pat Name: DEMETRA HUTCHINS Department: Room: - Gender: Female Manager Access: : 1965 Requested By: [id number] Order Number: [id number] Reading MD: WILLY HUA M.D. Measurements Intervals [place] Rate: 76 P: 55 HI: 156 QRS: 38 QRSD: 88 T: 68 QT: 372 QTc: 403 Interpretive Statements 1100 Sinus rhythm 9110 normal ECG Compared to ECG 03/28/2020 21:09:30 No significant changes Electronically Signed On 10-30-2024 19:37:09 EDT by WILLY HUA M.D.
--- NOTE | 2024-10-30 13:54 | XR_ITS ---
[address] [address] Patient Name: DEMETRA HUTCHINS MRN: [id number] date: 1965 Sex: F Assigned Patient Location: ER Current Patient Location: ER Accession/Order Number: [id number] Exam Date: 10/30/2024 14:08 Report Date: 10/30/2024 14:09 At the request of: RADHA WHITESIDE Procedure: XR chest 1V Plain film chest Single view HISTORY: Chest pain COMPARISON: None FINDINGS: SUPPORT DEVICES: None POSTSURGICAL CHANGES: None HEART: Within normal limits PULMONARY GREGORIO: Within normal limits MEDIASTINUM: Unremarkable LUNGS AND PLEURA: No acute lung process, pleural effusion or pneumothorax identified. BONY STRUCTURES: Intact ADDITIONAL FINDINGS None XR/XR chest 1V IMPRESSION: No acute process. Impression dictated by: Raghav Shaffer M.D. 10/30/2024 2:09 PM Dictation Location: [place] [address] Electronically authenticated by: [id number] Y Date: 10/30/2024 14:09
[2024-10-30 14:03] LABS: Basophils Absolute Auto 0.1 10^3/uL (0.0-0.1); Basophils Percent Auto 0.9 % (0.2-2.0); Eosinophils Absolute Auto 0.1 10^3/uL (0.0-0.7); Eosinophils Percent Auto 2.2 % (0.9-7.0); Hematocrit 40.1 % (36.0-48.0); Hemoglobin 13.3 g/dL (12.0-16.0); Immature Granulocytes Abs Auto 0.05 10^3/uL (0.00-0.03); Immature Granulocytes Pct Auto 0.8 % (0.0-0.5); Lymphocytes Absolute Auto 1.7 10^3/uL (1.2-3.8); Lymphocytes Percent Auto 26.1 % (20.5-60.0); Mean Corpuscular HGB Conc 33.2 g/dL (29.9-35.2); Mean Corpuscular Hemoglobin 27.2 pg (26.7-34.0); Mean Platelet Volume 10.9 fL (9.5-13.5); Monocytes Absolute Auto 0.5 10^3/uL (0.3-0.8); Monocytes Percent Auto 8.2 % (1.7-12.0); Neutrophils Percent Auto 61.8 % (43.0-75.0); Platelet Count 191 10^3/uL (150-450); Red Blood Count 4.89 10^6/uL (4.20-5.40); Red Cell Distribution Width 15.5 % (11.0-15.0); White Blood Count 6.5 10^3/uL (4.0-11.0)
[2024-10-30] MEDS: ASPIRIN 81 MG TAB.CHEW 243 MG PO (14:05)
[2024-10-30 14:22] LABS: Anion Gap 15.8; BUN Creatinine Ratio 17.6; Carbon Dioxide 27.4 mmol/L (21.0-32.0); Chloride 98 mmol/L (98-107); Estimated GFR (African America >60 (>=60 mL/min/1.73m^2); Estimated GFR (Non-African Ame >60 (>=60 mL/min/1.73m^2); Glucose 208 mg/dL (74-106); Potassium 4.2 mmol/L (3.5-5.1); Sodium 137 mmol/L (136-145); Troponin I High Sensitivity 16.8 pg/mL (4.0-51.3)
[2024-10-30 15:26] LABS: Troponin I High Sensitivity 16.4 pg/mL (4.0-51.3)
[2024-10-30 15:57] VITALS: BP 103/67; PULSE 84; O2SAT 98
== END 2024-10-30 15:58 | disposition home or self-care (01) ==
PROVIDERS: Nurse Practitioner Family; Emergency Provider Emergency Medicine; PCP Nurse Practitioner
DX: R07.89 Other chest pain (principal)
CPT/HCPCS: 36415; 71045; 80048; 84484; 85025; 93005; 99285

== ENCOUNTER 2024-11-02 12:45 | Outpatient (OUT) | payer OTHER, SELFPAY ==
[2024-11-02 13:12] LABS: Basophils Absolute Auto 0.1 10^3/uL (0.0-0.1); Basophils Percent Auto 0.8 % (0.2-2.0); Eosinophils Absolute Auto 0.1 10^3/uL (0.0-0.7); Eosinophils Percent Auto 1.8 % (0.9-7.0); Hematocrit 37.4 % (36.0-48.0); Hemoglobin 12.7 g/dL (12.0-16.0); Immature Granulocytes Abs Auto 0.03 10^3/uL (0.00-0.03); Immature Granulocytes Pct Auto 0.4 % (0.0-0.5); Lymphocytes Percent Auto 28.3 % (20.5-60.0); Mean Corpuscular Hemoglobin 27.9 pg (26.7-34.0); Mean Corpuscular Volume 82.2 fL (81.0-99.0); Mean Platelet Volume 10.7 fL (9.5-13.5); Monocytes Absolute Auto 0.6 10^3/uL (0.3-0.8); Monocytes Percent Auto 7.8 % (1.7-12.0); Neutrophils Absolute Auto 4.3 10^3/uL (1.4-6.5); Neutrophils Percent Auto 60.9 % (43.0-75.0); Platelet Count 203 10^3/uL (150-450); Red Blood Count 4.55 10^6/uL (4.20-5.40); Red Cell Distribution Width 15.6 % (11.0-15.0); White Blood Count 7.1 10^3/uL (4.0-11.0)
[2024-11-02 13:21] LABS: Creatinine Urine Random 33.57 mg/dL (20.00-300.00); Microalbumin Urine Random <1.3 mg/dL (<=30.0)
[2024-11-02 13:33] LABS: Bilirubin Urine NEGATIVE (NEGATIVE); Blood Urine NEGATIVE (NEGATIVE); Clarity Urine CLEAR (CLEAR); Color Urine LT. YELLOW (YELLOW); Glucose Urine UA >=1000 mg/dL (NEGATIVE); Ketones Urine NEGATIVE (NEGATIVE); Leukocyte Esterase Urine NEGATIVE (NEGATIVE); Nitrite Urine NEGATIVE (NEGATIVE); Protein Urine NEGATIVE (NEG/TRACE); Urobilinogen Urine 0.2 EU/dL (0.2-1.0)
[2024-11-02 14:10] LABS: Alanine Aminotransferase 28 U/L (14-59); Albumin Globulin Ratio 0.7; Albumin Level 3.1 g/dL (3.4-5.0); Alkaline Phosphatase 42 U/L (46-116); Anion Gap 13.7; Aspartate Amino Transferase 24 U/L (15-37); BUN Creatinine Ratio 17.2; Bilirubin Total 0.6 mg/dL (0.2-1.0); Calcium 10.1 mg/dL (8.5-10.1); Carbon Dioxide 29.8 mmol/L (21.0-32.0); Chloride 97 mmol/L (98-107); Estimated GFR (African America >60 (>=60 mL/min/1.73m^2); Estimated GFR (Non-African Ame >60 (>=60 mL/min/1.73m^2); Globulin 4.5 g/dL; Glucose 253 mg/dL (74-106); Potassium 4.5 mmol/L (3.5-5.1); Sodium 136 mmol/L (136-145); Total Protein 7.6 g/dL (6.4-8.2)
[2024-11-02 14:27] LABS: Urine Microscopic Indicated NO
== END 2024-11-02 12:46 | disposition home or self-care (01) ==
LOC: LAB 12:45
PROVIDERS: PCP Nurse Practitioner; Visit Provider Nurse Practitioner
DX: E11.65 Type 2 diabetes mellitus 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 (principal); Z85.850 Personal history of malignant neoplasm of thyroid; Z79.4 Long term (current) use of insulin; I10 Essential (primary) hypertension
CPT/HCPCS: 36415; 80053; 81001; 81003; 82043; 82570; 84436; 84443; 85025; 86800

== ENCOUNTER 2024-11-02 12:47 | Outpatient (OUT) | payer OTHER, SELFPAY ==
--- OUTSIDE RECORDS SUMMARY | 2024-11-02 12:48 | XMS_ITS | Encounter Summary ---
Author Organization [facility] Address [address] [place] [address] Care Team Providers Care Space Buyer Name Role Phone Katalina Colbert ICE CREAM MAN Unavailable [phone] Kervin Stevens MD Primary Care Provider [phone] Encounter Details Date Type Department Care Team (Late st Contact Info) Description 01/23/2024 Orders Only [facility] [address] [place] [address] Katalina Colbert, NETTIE [address] [place] [phone] Social History Tobacco Use Types Packs/Day Years Used Date Smoking Tobacco: Former Cigarettes Comments:Last smoked: 5-10 y ears ago Alcohol Use Standard Drinks/Week Comments Not Currently 0 (1 standard drink = 0.6 oz pure alcohol) caffeine more than 4 cups per day Humiliation, Afraid, Rape, and Kick questionnair e Answer Date Recorded Within the last year, have y ou been afraid of your partner or ex-partner? No 06/02/2023 Within the last year, have y ou been humiliated or emotionally abused in other ways by your partner or ex-partner? No Within the last year, have y ou been kicked, hit, slapped, or otherwise physically hurt by your partner or ex-partner? No 06/02/2023 Within the last year, have y ou been raped or forced to have any kind of sexual activity by your partner or ex-partner? No 06/02/2023 Social Connection and Isolat ion Panel [NHANES] Answer Date Recorded In a typical week, how many times do you talk on the phone with family, friends, or neighbors? More than three times a week 06/02/2023 How often do you get togethe r with friends or relatives? Three times a week 06/02/2023 How often do you attend chur or oriental orthodox services? More than 4 times per year 06/02/2023 Do you belong to any clubs o r organizations such as anabaptism groups, unions, fraternal or athletic groups, or school groups? No 06/02/2023 How often do you attend meet ings of the clubs or organizations you belong to? Never 06/02/2023 Are you , , di vorced, , never , or living with a partner? Never 06/02/2023 AUDIT-C Answer Date Recorded Q1: How often do you have a drink containing alcohol? Never 06/02/2023 Q2: How many drinks containi ng alcohol do you have on a typical day when you are drinking? Patient does not drink Q3: How often do you have si x or more drinks on one occasion? Never 06/02/2023 Overall Financial Resource Strain (CARDIA) Answe r Date Recorded How hard is it for you to pa y for the very basics like food, housing, medical care, and heating? Somewhat hard 06/02/2023 [facility] - Occupational Stress Questionnaire Answer Date Recorded Do you feel stress - tense, restless, nervous, or anxious, or unable to sleep at night because your mind is troubled all the time - these days? To some extent 06/02/2023 Exercise Vital Sign Answer Date Recorde d On average, how many days pe r week do you engage in moderate to strenuous exercise (like a brisk walk)? 2 days 06/02/2023 On average, how many minutes do you engage in exercise at this level? 20 min 06/02/2023 Hunger Vital Sign Answer Date Recorded Within the past 12 months, y ou worried that your food would run out before you got the money to buy more. Never true 06/02/20 23 Within the past 12 months, t he food you bought just didn't last and you didn't have money to get more. Never true 06/02/2023 PRAPARE - Transportation Answer Date Re corded In the past 12 months, has l ack of transportation kept you from medical appointments or from getting medications? No 05/07 In the past 12 months, has l ack of transportation kept you from meetings, work, or from getting things needed for daily living? No 06/02/2023 Housing Stability Vital Sign Answer Emanuel e Recorded In the last 12 months, was t here a time when you were not able to pay the mortgage or rent on time? No 06/02/2023 In the last 12 months, how many places have you lived? 1 06/02/2023 In the last 12 months, was t here a time when you did not have a steady place to sleep or slept in a intermediate (including now)? No 06/02/2023 Comments Unknown Sex and Gender Information Value Date Recorded Sex Assigned at Female 06/10/2023 3:59 AM EST Legal Sex Female 7:29 PM EDT Gender Identity Female 06/10/2023 3:59 AM EST Sexual Orientation Straight 06/10/2023 3: 59 AM EST documented as of this encounter Plan of Treatment Upcoming Encounters Date Type Department Care Team (Late st Contact Info) Description 11/08/2024 11:20 AM EDT Office Visit [facility] [address] [place] [address] Sarah Khan MD [address] [place] [address] 11/13/2024 3:00 PM EDT Office Visit [facility] [address] [place] [phone] Katalina Colbert NP [address] [place] [phone] 11/22/2024 3:00 PM EDT Office Visit [facility] [address] [place] [address] Alexa Pulliam, CN [address] [place] [address] documented as of this encounter Procedures Procedure Name Priority Date/Time Associated Diagnosis Comments XR LUMBAR SPINE 2-3 VIEWS Routine 01/23/2024 2:29 PM EDT XR HIP 2-3 VIEWS LT WO OR W PELVIS Routine 01/23/2024 11:59 AM EDT documented in this encounter Results * XR lumbar spine 2 or 3 views (01/23/2024 2:29 PM EDT) Anatomical Region Laterality Modality Spine, L-spine Radiographic Cris ging Katalina Colbert NP IMG XR PROCEDURES Final Result * XR HIP 2-3 VIEWS LT WO OR W PELVIS (01/23/2024 11:59 AM EDT) Anatomical Region Laterality Modality Radiographic Cris ging Katalina Colbert NP IMG XR PROCEDURES Final Result documented in this encounter Visit Diagnoses Not on filedocumented in this encounter Care Teams Space Buyer Relationship Specialty Start Date End Date Kervin Stevens MD [address] [place] [phone] PCP - General Family Medicine 06/01/23 Katalina Colbert NP [address] [place] [phone] Nurse Practitioner Family Medicine 03/06/23 documented as of this encounter
--- OUTSIDE RECORDS SUMMARY | 2024-11-02 12:48 | XMS_ITS | Clinical Summary ---
Author Organization [facility] Address [address] [place] [address] Care Team Providers Care Internet Marketer Name Role Phone Katalina Colbert CNP Primary Care Provider Zion Nugent MD Unavailable [phone] Allergies Active Allergy Reactions Criticality Noted Date Comments Adhesive Rash Medium 05/11/2012 Medications Cholecalciferol , Vitamin D3, (VITAMIN D) 1,000 unit Tab Take 1,000 Units by mouth once daily. Active aspirin (BABY ASPIRIN) 81 mg chewable tablet Take 81 mg by mouth once daily. Active cetirizine (ALLER-MELIZA) 10 mg tablet Take 10 mg by mouth once daily. Active multivitamin tablet Take 1 tablet by mouth once daily. Active hydroCHLOROthia zide (HYDRODIURIL, ESIDRIX) 12.5 mg tablet q 24 HR. Active ibuprofen (MOTRIN) 200 mg tablet Take 200 mg by mouth every 6 hours as needed. Active metFORMIN (GLUCOPHAGE) 1,000 mg tablet metformin 1,000 mg tablet Take 1 tablet twice a day by oral route for 90 days. 8 Active insulin glargine (LANTUS SOLOSTAR U-100 INSULIN) 100 unit/mL (3 mL) Lantus Solostar U-100 Insulin 100 unit/mL (3 mL) subcutaneous pen 8 Active losartan (COZAAR) 50 mg tablet q 24 HR. 8 Active simvastatin (ZOCOR) 5 mg tablet q 24 HR. 8 Active DULoxetine (CYMBALTA) 30 mg capsule 1 Active tiZANidine (ZANAFLEX) 4 mg tablet 1 Active levothyroxine (SYNTHROID) 200 mcg tablet Take 1 tablet by mouth once daily. 30 tablet 3 5 Active Active Problems Problem Noted Date Diagnosed Date Thyroid cancer 06/04/2020 Bicipital tendinitis 11/23/2012 Rotator cuff (capsule) sprain 08/07/2012 Cervicalgia 08/07/2012 Family History Medical History Relation Comments Colon Cancer Father Diabetes Father Colon Cancer Mother Diabetes Mother Heart Mother [place] 2009 Uterine Cancer Mother Breast Cancer Paternal Grandmother Colon Cancer Paternal Grandmother Relation Status Comments Father Mother Paternal Grandmother Social History Tobacco Use Types Packs/Day Years Used Date Smoking Tobacco: Former Cigarettes 1 25 Smokeless Tobacco: Never Comments:quit smoking Jun Alcohol Use Standard Drinks/Week Comments Not Currently 0 (1 standard drink = 0.6 oz pur e alcohol) PHQ-2 Answer Date Recorded PHQ-2 score 2 03/21/2024 Area Deprivation Index Answer Date Patrick rded National Score (1-100), lowe r number is lower risk 60 11/18/2022 State Score (1-10), lower number is lower risk 4 11/18/2022 Data from: https://www.neighborhoodatlas.medicine.[facility].edu/ . 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 Not on file Not on file Last Filed Vital Signs Vital Sign Reading Time Taken Comments Blood Pressure 129/64 07/08/2020 3:45 PM EST Pulse 97 07/08/2020 3:45 PM EST Temperature 36.2 C (97.2 F) 07/08/2020 3:45 PM EST Respiratory Rate 18 07/08/2020 3:45 PM EST Oxygen Saturation 98% 07/08/2020 3:45 PM EST Inhaled Oxygen Concentration - - Weight 130.2 kg (287 lb) 09/16/2020 3:06 PM EDT Height 162.6 cm (5' 4 ) 05/29/2020 9:22 AM EST Body Mass Index 49.26 05/29/2020 9:22 AM EST Plan of Treatment Upcoming Encounters Date Type Department Care Team (Latest Contact Info) Description 11/08/2024 2:30 PM EDT [facility] Radiation Oncology [address] [place] [address] Zion Nugent MD [address] [place] [address] [place] [address] Follow up after recheck labs Health Maintenance Due Date Last Done Comments Anxiety Screening 1985 Depression Screening 1985 HIV Screening 1985 Hepatitis C Screening 1985 DTaP,Tdap,Td Vaccine (1 - Tdap) 1986 Hepatitis B Vaccine (1 of 3 - 19+ 3-dose series) 1986 Cervical Cancer Screening 01/25/[address] Colonography 01/25/2012 Cologuard (FIT-DNA) 01/25/2012 Colonoscopy 01/25/2012 Colorectal Cancer Screening 01/25/2012 Fecal Occult Blood 01/25/2012 Lipid Screening 01/25/2012 Sigmoidoscopy 01/25/2012 Pneumococcal Vaccine: 50+ (1 of 1 - PCV) 2017 Shingrix Vaccine (1 of 2) 2017 Covid-19 Vaccine (1 - 2023-2 5 season) 2024 Influenza Vaccine (Season Ended) 2025 03/25/2020, 04/05/2019, 03/22/2018 Diabetes Screening 03/08/2027 03/08/2024, 0 02/10/2021, 02/10/2021, Additional history exists Medical Devices Implanted Type Area Foreman Shipping Department Device Identifier Shelf Expiration Date Model / Serial / Lot 0---Anchr Sut 4.5mm Pshlk Spnl - [id number] Implanted:Qty: 3 on 11/29/2012 at [facility] [place] Right: Bone - Shoulder [employer] 08/03/2017 [id number] / / [id number] Description:SUTURE ANCHOR Procedures Procedure Name Priority Date/Time Associated Diagnosis Comments EXTERNAL LAB 10/31/2024 9:18 AM EDT EXTERNAL CARDIOLOGY 10/31/2024 9 :18 AM EDT EXTERNAL IMAGING 10/31/2024 9:18 AM EDT EXTERNAL LAB 10/31/2024 9:18 AM EDT from Last 3 Months Results * EXTERNAL LAB (10/31/2024 9:18 AM EDT) Only the most recent of2 resultswithin the time period is included. us External Provider PA-C LABORATORY Final Res ult * EXTERNAL CARDIOLOGY (10/31/2024 9:18 AM EDT) us External Provider PA-C CARDIOLOGY Final Res ult * EXTERNAL IMAGING (10/31/2024 9:18 AM EDT) Anatomical Region Laterality Modality Other us External Provider PA-C RADIOLOGY Final Res ult from Last 3 Months Insurance * Guarantor: Katalina Ernst Account Type Relation to Patient Date of Phone Billing Address Self Pay Self [phone] [address] Care Teams Internet Marketer Relationship Specialty Start Date End Date Katalina Colbert, BALANCE STAFF INSPECTOR PCP - General Family Medicine 11/26/14 Zion Nugent MD [address] [place] [address] [place] [address] Radiation Oncology 05/28/20
--- OUTSIDE RECORDS SUMMARY | 2024-11-02 12:48 | XMS_ITS | Encounter Summary ---
Author Organization [facility] Address [address] [place] [address] Care Team Providers Care Certified Pesticide Applicator Name Role Phone Katalina Colbert CNP Primary Care Provider [phone] Zion Nugent MD Unavailable [phone] Source Comments In the event this information is protected by the Federal Confidentiality of Alcohol and Drug AbusePatient Records regulations: The Federal rules restrict any use of the information to criminally investigate or prosecute any alcohol or drug abuse patient.[facility] Encounter Details Date Type Department Care Team (Late st Contact Info) Description 05/29/2020 Abstract Radiation Oncology [address] [place] [address] Kaitlynn Carreon, SHAYLA Social History Tobacco Use Types Packs/Day Years Used Date Smoking Tobacco: Former Cigarettes 1 25 Smokeless Tobacco: Never Comments:quit smoking Jun Alcohol Use Standard Drinks/Week Comments Not Currently 0 (1 standard drink = 0.6 oz pur e alcohol) Area Deprivation Index Answer Date Patrick rded National Score (1-100), lower number is lower ri sk Not on file 05/29/2020 State Score (1-10), lower number is lower risk N ot on file 05/29/2020 Data from: https://www.neighborhoodatlas.medicine.[facility]/. 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 No / Unsure 05/29/2020 9:22 AM EST documented as of this encounter Plan of Treatment Upcoming Encounters Date Type Department Care Team (Latest Contact Info) Description 11/08/2024 2:30 PM EDT [facility] Radiation Oncology [address] [place] [address] Zion Nugent MD [address] [place] [address] [place] [address] Follow up after recheck labs documented as of this encounter Visit Diagnoses Not on filedocumented in this encounter Care Teams Certified Pesticide Applicator Relationship Specialty Start Date End Date Katalina Colbert CNP PCP - General Family Medicine 11/26/14 Zion Nugent MD [address] [place] [address] [place] [address] Radiation Oncology 05/28/20 documented as of this encounter
--- OUTSIDE RECORDS SUMMARY | 2024-11-02 12:48 | XMS_ITS | Encounter Summary ---
Author Organization [facility] Address [address] [place] [address] Care Team Providers Care Associate Trainer Name Role Phone Katalina Colbert GENERAL ADJUSTER Unavailable [phone] Kervin Stevens MD Primary Care Provider [phone] Encounter Details Date Type Department Care Team (Late st Contact Info) Description 06/12/2024 Clinisync Result Encounter [facility] External Department Unsolicited Katalina Colbert, NETTIE [address] [place] [address] Social History Tobacco Use Types Packs/Day Years [...] 06/02/2023 How often do you attend chur ch or tenriism services? More than 4 times per year 06/02/2023 Do you belong to any clubs o r organizations such as denominational groups, unions, fraternal or athletic groups, or [...] medical care, and heating? Somewhat hard 06/02/2023 [facility] - Occupational Stress [...] place to sleep or slept in a care home (including now)? No 06/02/2023 Comments Unknown Sex [...] AM EDT Office Visit [facility] [address] [place] [address] Sarah Khan MD [address] [place] [address] 11/13/2024 3:00 PM EDT Office Visit [facility] [address] [place] [address] Katalina Colbert NP [address] [place] [phone] 11/22/2024 3:00 PM EDT Office Visit [facility] [address] [place] [phone] Alexa Pulliam, SHAWNAM [address] [place] [address] documented as of this encounter Procedures Procedure Name Priority Date/Time Associated Diagnosis Comments MM TOMOSYNTHESIS SCREENING BI 06/12/2024 4:43 PM EST documented in this encounter Results * MM TOMOSYNTHESIS SCREENING BI (06/12/2024 4:43 PM EST) Anatomical Region Laterality Modality Other 06/12/2024 4:43 PM EST Narrative 06/12/2024 4:45 PM EST [facility] [place] [id number] Mammography Report Signed Patient: KATALINA HUTCHINS MR#: [id number] : 1965 Acct:[id number] Age/Sex: 59 / F ADM Date: 06/12/24 Loc: MAMMO Attending Dr: Katalina Colbert NP Ordering Physician: Katalina Colbert NP Results: Date of Service: 06/12/24 Follow Up: Procedure(s): MM tomosynthesis screening BI Accession Number(s): [id number] cc: Katalina Colbert NP Patient Name: KATALINA HUTCHINS MR#: [id number] : 1965 Exam Date: 06/12/2024 Ordering Doctor: TARIK Colbert CNP RADIOLOGY REPORT PROCEDURE: MM TOMOSYNTHESIS SCREENING BI COMPARISON: MM TOMOSYNTHESIS SCREENING BI, 04/29/2023. MG MAMM SCREEN 3D FRANCI CAD, 04/27/2022. MG MAMM SCREEN 3D FRANCI CAD, 11/28/2020. MG MAMM FRANCI DIAG W CAD DIG, 03/15/2013. INDICATIONS: Screening for malignant neoplasm Calculator Name NCI Breast Cancer Risk Assessment Tool 5 Year Breast Cancer Risk 1.60% Lifetime Breast Cancer Risk 9.50% Personal Breast Cancer No Personal Ovarian Cancer No Treatments None Family Cancers Grandmother-paternal with breast cancer at age 50; Mother with uterine cancer at age 26. LOCATION: [facility] BREAST COMPOSITION: There are scattered areas of fibroglandular density. FINDINGS: DIAGNOSTIC CATEGORY 2--BENIGN FINDING: RIGHT BREAST: No significant suspicious finding. No significant change has occurred. LEFT BREAST: No significant suspicious finding. Stable benign-appearing lymph node within posterior upper-outer quadrant. No significant change has occurred. RECOMMENDATIONS: ROUTINE MAMMOGRAM AND CLINICAL EVALUATION IN 12 MONTHS. PLEASE NOTE: A NORMAL MAMMOGRAM DOES NOT EXCLUDE THE POSSIBILITY OF BREAST CANCER. A CLINICALLY SUSPICIOUS PALPABLE LUMP SHOULD BE BIOPSIED. Dictated by: Matias Edwards M.D. on 06/12/2024 at 16:41 Approved by: Matias Edwards M.D. on 06/12/2024 at 16:43 Dictated By: Matias Edwards M.D. Signed By: 06/12/241644 DD/ 42 TD/TT: Hydrometeorological Technician: Procedure Note Radiology, Radiologist, MD - 06/12/2024 [place] [address] Mammography Report Signed Patient: KATALINA HUTCHINS MMR#: [id number] : 1965Acct:[id number] Age/Sex: 59 / FADM Date: 06/12/24 Loc: MAMMO Attending Dr: Katalina Colbert NP Ordering Physician: Katalina Colbert NPResults: Date of Service: 06/12/24Follow Up: Procedure(s): MM tomosynthesis screening BI Accession Number(s): [id number] cc: Katalina Colbert NP Patient Name: KATALINA HUTCHINS MR#: [id number] : 1965 Exam Date: 06/12/2024 Ordering Doctor: TARIK Colbert CNP RADIOLOGY REPORT PROCEDURE: MM TOMOSYNTHESIS SCREENING BI COMPARISON: MM TOMOSYNTHESIS SCREENING BI, 04/29/2023. MG MAMM [id number] FRANCI CAD, 04/27/2022. MG MAMM SCREEN 3D FRANCI CAD, 11/28/2020. MG MAMM BILDIAG W CAD DIG, 03/15/2013. INDICATIONS: Screening for malignant neoplasm Calculator Name NCI Breast Cancer Risk Assessment Tool 5 Year Breast Cancer Risk 1.60% Lifetime Breast Cancer Risk 9.50% Personal Breast Cancer No Personal Ovarian Cancer No Treatments None Family Cancers Grandmother-paternal with breast cancer at age 50; Mother with uterine cancer at age 26. LOCATION: [facility] BREAST COMPOSITION: There are scattered areas of fibroglandulardensity. FINDINGS: DIAGNOSTIC CATEGORY 2--BENIGN FINDING: RIGHT BREAST: No significant suspicious finding. No significant changehas occurred. LEFT BREAST: No significant suspicious finding. Stable benign-appearing lymph node within posterior upper-outer quadrant. No significant changehas occurred. RECOMMENDATIONS: ROUTINE MAMMOGRAM AND CLINICAL EVALUATION IN 12 MONTHS. PLEASE NOTE: A NORMAL MAMMOGRAM DOES NOT EXCLUDE THE POSSIBILITY OFBREAST CANCER. A CLINICALLY SUSPICIOUS PALPABLE LUMP SHOULD BE BIOPSIED. Dictated by: Matias Edwards M.D. on 06/12/2024 at 16:41 Approved by: Matias Edwards M.D. on 06/12/2024 at 16:43 Dictated By: Matias Edwards M.D. Signed By:06/12/24 1645 DD/ 1643 TD/TT: Hydrometeorological Technician: Katalina Colbert NP [facility] Final Result documented in this encounter Visit Diagnoses Not on filedocumented in this encounter Care Teams Associate Trainer Relationship Specialty Start Date End Date Kervin Stevens MD [address] [place] [address] PCP - General Family Medicine 06/01/23 Katalina Colbert NP [address] [place] [address] Nurse Practitioner Family Medicine 03/06/23 documented as of this encounter
--- OUTSIDE RECORDS SUMMARY | 2024-11-02 12:48 | XMS_ITS | Encounter Summary ---
Author Organization [facility] Address [address] [place] [address] Care Team Providers Care Mobile Home Lot Utility Worker Name Role Phone Katalina Colbert UNDERGROUND DISTRIBUTION ENGINEER Unavailable [phone] Kervin Stevens MD Primary Care Provider [phone] Encounter Details Date Type Department Care Team (Late st Contact Info) Description 07/17/2024 Orders Only [facility] [address] [place] [address] Katalina Colbert, NETTIE [address] [place] [phone] Social History Tobacco Use Types Packs/Day Years [...] How often do you attend chur or voodoo services? More than 4 times per year 06/02/2023 Do you belong to any clubs o r organizations such as alevism groups, unions, fraternal or athletic groups, or [...] medical care, and heating? Somewhat hard 06/02/2023 [facility] Occupat ional Health - Occupational Stress [...] place to sleep or slept in a mcc (including now)? No 06/02/2023 Comments Unknown Sex [...] Visit [facility] [address] [place] [address] Sarah Khan MD [address] [place] [address] 11/13/2024 3:00 PM EDT Office Visit [facility] [address] [place] [phone] Katalina Colbert NP [address] [place] [address] 11/22/2024 3:00 PM EDT Office Visit [facility] [address] [place] [address] Alexa Pulliam, COLBY [address] [place], [place] [phone] documented as of this encounter Visit Diagnoses Not on filedocumented in this encounter Care Teams Mobile Home Lot Utility Worker Relationship Specialty Start Date End Date Kervin Stevens MD [address] [place] [address] PCP - General Family Medicine 06/01/23 Katalina Colbert NP [address] [place] [address] Nurse Practitioner Family Medicine 03/06/23 documented as of this encounter
--- OUTSIDE RECORDS SUMMARY | 2024-11-02 12:48 | XMS_ITS | Referral Summary ---
Author Organization [facility] Address [address] [place] [address] Care Team Providers Care Director Of Accounting Name Role Phone Unavailable Primary Care Provider Unavailabl e Social History Tobacco Use Types Packs/Day Years Used Date Smoking Tobacco: Never Assessed Sex and Gender Information Value Date Recorded Sex Assigned at Not on file Gender Identity Not on file Sexual Orientation Not on file Last Filed Vital Signs Vital Sign Reading Time Taken Comments Blood Pressure 132/86 04/24/2020 1:31 PM EST Pulse - - Temperature - - Respiratory Rate - - Oxygen Saturation 95% 04/24/2020 1:30 PM EST Inhaled Oxygen Concentration - - Weight 132 kg (292 lb) 04/24/2020 1:31 PM EST Height 162.6 cm (5' 4 ) 04/24/2020 1:31 PM EST Body Mass Index 50.12 04/24/2020 1:31 PM EST Plan of Treatment Not on file
--- OUTSIDE RECORDS SUMMARY | 2024-11-02 12:48 | XMS_ITS | Clinical Summary ---
Author Organization [facility] Address [address] [place] [address] Care Team Providers Care Vocational Training Instructor Name Role Phone Katalina Colbert MANAGER PERSONAL Unavailable [phone] Kervin Stevens MD Primary Care Provider [phone] Allergies Active Allergy Reactions Criticality Noted Date Comments Latex Other,Rash Low 08/29/2018 Wound Dressing Adhesive Rash Medium 05/11/2012 Medications levothyroxine (Synthroid, Levoxyl) 200 MCG tablet Take 1 tablet by mouth in the morning. Take before meals. 05/04/20 23 Active metFORMIN (Glucophage) 1000 MG tabletIndications :Uncontrolled type 2 diabetes mellitus 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, with long-term current use of insulin (CMS/[facility]) Take 1 tablet (1,000 mg) by mouth in the morning and 1 tablet (1,000 mg) before bedtime. 180 tablet 1 08/25/19 24 Active insulin glargine-yfgn (Semglee-yfgn) 100 UNIT/ML pen Inject 60 Units under the skin at bedtime 12/08/19 24 Active albuterol HFA 90 mcg/act inhaler Inhale 2 puffs every 4 (four) hours if needed for wheezing Active insulin lispro (HumaLOG) 100 UNIT/ML injectionIndicati ons:Type 2 diabetes mellitus 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, unspecified whether rn long term care insulin use (CMS/HCC) INJECT 15-20-25 UNITS ACCORDING TO MEAL SIZE PLUS ISS #3 (MAX DAILY DOSE OF 100 UNITS) 105 mL 03/23/20 24 Active simvastatin (Zocor) 5 MG tabletIndications :Mixed hyperlipidemia (CMS/HCC) Take 1 tablet (5 mg) by mouth at bedtime 90 tablet 1 04/17/20 24 Active fexofenadine (Yolanda) 180 MG tabletIndications :Allergic rhinitis, unspecified seasonality, unspecified trigger Take 1 tablet (180 mg) by mouth Daily as needed (Allergies) 90 tablet 1 05/09/20 24 Active fluticasone (Flonase) 50 MCG/ACT nasal sprayIndications: Allergic rhinitis, unspecified seasonality, unspecified trigger Administer 2 sprays into each nostril Daily 48 g 1 05/09/20 24 Active DULoxetine (Cymbalta) [address] capsuleIndication s:Anxiety and depression ([facility]/HCC) Take 1 capsule (60 mg) by mouth Daily 90 capsule 1 05/09/20 24 Active SITagliptin (Januvia) 100 MG tabletIndications :Type 2 diabetes mellitus 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, unspecified whether rn long term care insulin use ([facility]) Take 1 tablet by mouth once daily 90 tablet 1 06/04/20 24 Active ReliOn Pen [place] 31G X 6 MM misc Inject 1 each under the skin in the morning and 1 each at noon and 1 each in the evening and 1 each before bedtime. 06/09/19 Active tiZANidine (Zanaflex) 4 MG tabletIndications :Chronic pain syndrome Take 1 tablet (4 mg) by mouth as needed at bedtime for muscle spasms 90 tablet 1 08/14/19 25 2024 Active hydroCHLOROthiazi de (Microzide) 12.5 MG capsuleIndication s:Essential hypertension ([facility]),Bilater al lower extremity edema Take 1 capsule (12.5 mg) by mouth Daily 30 capsule 1 08/14/19 25 2024 Active losartan (Cozaar) 100 MG tabletIndications :Essential hypertension ([facility]) Take 1 tablet (100 mg) by mouth Daily 90 tablet 09/06/19 25 2024 Active insulin glargine (Lantus SoloStar) 100 UNIT/ML penIndications:Ty pe 2 diabetes mellitus 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, unspecified whether rn long term care insulin use ([facility]) Inject 60 Units under the skin at bedtime 54 mL 1 09/08/19 25 2024 Active aspirin (Aspirin Low Dose) 81 MG EC tabletIndications :Uncontrolled type 2 diabetes mellitus 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, with long-term current use of insulin ([facility]) Take 1 tablet (81 mg) by mouth Daily 90 tablet 2 09/18/19 25 2024 Active cholecalciferol (Vitamin D-3) 25 MCG (1000 UT) capsuleIndication s:Vitamin D deficiency, unspecified Take 1 capsule (25 mcg) by mouth Daily 90 capsule 1 10/15/19 25 2024 Active cholecalciferol (Vitamin D-3) 25 MCG (1000 UT) capsule Take 25 mcg by mouth Daily 07/17/19 25 2024 Discontinued Active Problems Problem Noted Date Diagnosed Date Pap smear for cervical cancer screening 08/14/19 Assessment & Plan (08/13/2024 3:00 PM EDT): Has not had PAP smear in number of years, last time this was attempted in our office, pt unable to tolerate d/t discomfort She did have a pelvic US as well, on 09/22/19, it was recommended that she have tissue biopsy. She was referred to filter tank tender helper head at that time, she did not attend the appt either She is no having any pelvic pain and is not having any abnormal uterine bleeding either. I have discussed this in the past with pt, and the need to have this completed, she is willing to get this completed, and I will refer to AIR CONDITIONING INSTALLER SUPERVISOR for evaluation Encounter for screening mamm ogram for malignant neoplasm of breast 05/09/2024 Left foot pain 05/09/2024 Assessment & Plan (05/09/2024 1:43 PM EST): Intermittent pain, some days intense, no NT Possible Diabetic neuropathy If wants foot xray she will call Other chronic pain 05/09/2024 Yeast infection of the vagina 04/09/2024 Hidradenitis suppurativa of multiple sites 02/07 Assessment & Plan (02/08/2024 2:42 PM EDT): Atb, warm compress, fu if needed Pain of left hip 12/12/2023 Assessment & Plan (12/12/2023 7:24 PM EDT): Uncertain if more of an OA, or possible radicular issues from lumbar Check xray Lumbar back pain with radicu lopathy affecting left lower extremity 12/12/2023 Assessment & Plan (12/12/2023 7:25 PM EDT): Start with plain film xray Consider pain mgmt Class 3 severe obesity due t o excess calories with serious comorbidity and body mass index (BMI) of 50.0 to 59.9 in adult 12/12/2023 Assessment & Plan (08/13/2024 6:50 AM EDT): Discussed with patient their BMI (actual, verses recommended). We have also discussed lifestyle modifications: attempts to perform physical activity as chronic conditions allow, also to monitor dietary intake: increasing protein/fruits/veggies and lowering carb intake (unless contraindicated). Limit sodas, juices, and sugary drinks. Also discussed oral medications that can be utilized for weight loss, as well as surgical options for weight loss. Assessment & Plan (05/09/2024 7:14 AM EST): Discussed with patient their BMI (actual, verses recommended). We have also discussed lifestyle modifications: attempts to perform physical activity as chronic conditions allow, also to monitor dietary intake: increasing protein/fruits/veggies and lowering carb intake (unless contraindicated). Limit sodas, juices, and sugary drinks. Also discussed oral medications that can be utilized for weight loss, as well as surgical options for weight loss. History of rectal polyps 09/08/2023 Assessment & Plan (09/08/2023 7:05 PM EDT): Has upcoming appt with Yanet Vitamin D deficiency 08/25/2023 Assessment & Plan (05/09/2024 7:13 AM EST): Takes supplement daily Check labs yearly and prn Arthritis of knee, right 08/03/2023 Assessment & Plan (02/08/2024 2:33 PM EDT): Recommend weight loss Cont NSAID Postoperative hypothyroidism 08/03/2023 Papillary thyroid carcinoma 08/03/2023 Assessment & Plan (08/13/2024 6:51 AM EDT): Continue with dr campa He also manages her thyroid dose Assessment & Plan (02/08/2024 2:34 PM EDT): Continue with dr campa He also manages her thyroid dose Assessment & Plan (12/12/2023 7:25 PM EDT): Continue w dr campa KARINE (obstructive sleep apnea) 08/03/2023 Assessment & Plan (08/13/2024 2:46 PM EDT): You have a diagnosis of obstructive sleep apnea. It is recommended that you wear your PAP device any time while in bed sleeping. Not using the PAP device can increase your risk of elevated/uncontrolled high blood pressure, atrial fibrillation, heart attack, stroke, or sudden . Compliance with PAP: is not, does not need order for new mask and head gear, script written and given to patient Assessment & Plan (05/09/2024 7:12 AM EST): Non compliant with use Non compliant use can increase risk for stroke, AR, HTN, sudden Assessment & Plan (02/08/2024 2:40 PM EDT): Non compliant with use Which could also be related to her fatigue in addition to lack of thyroid med for 2-3 weeks Multinodular goiter 08/03/2023 Allergic rhinitis 07/04/2023 Assessment & Plan (05/09/2024 7:15 AM EST): Continue with flonase and yolanda Assessment & Plan (09/08/2023 7:06 PM EDT): Stop cetirizine, will trial yolanda Bilateral lower extremity edema 06/12/2023 Assessment & Plan (08/13/2024 6:50 AM EDT): Current medication: hydrochlorothiazide Recommend compression stockings, elevate feet as much as possible and limit sodium Assessment & Plan (05/09/2024 7:12 AM EST): Limit sodium Elevate legs Cont diuretic Assessment & Plan (12/12/2023 7:24 PM EDT): Stable no changes Assessment & Plan (09/08/2023 7:06 PM EDT): stable Essential hypertension 06/09/2023 Assessment & Plan (08/13/2024 6:49 AM EDT): Please check blood pressure daily and record DASH diet Limit caffeine Take medication as directed Contact office if chest pain, pressure, dizziness, shortness of breath, swelling legs Recommend slow position changes Current meds: hydrochlorothiazide, losartan Assessment & Plan (05/09/2024 7:12 AM EST): Please check blood pressure daily and record DASH diet Limit caffeine Take medication as directed Contact office if chest pain, pressure, dizziness, shortness of breath, swelling legs Recommend slow position changes Current meds: hydrochlorothiazide, losartan Assessment & Plan (02/08/2024 2:32 PM EDT): Continue current meds at this time No changes Assessment & Plan (12/12/2023 7:23 PM EDT): Stable no change in dose of meds Assessment & Plan (09/08/2023 7:05 PM EDT): Stable on current dose of meds Check labs Assessment & Plan (06/09/2023 6:35 PM EST): Within goal range No changes Uncontrolled type 2 diabetes mellitus 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, with long-term current use of insulin 06/09/2023 Assessment & Plan (08/13/2024 6:54 AM EDT): Check blood sugars daily, notify if <70 or >200. Take medications (pills or insulin) as directed. Monitor for s/s of hypoglycemia (sweaty, dizziness, nausea, vomiting, or shakiness). Watch for increase in thirst, urination, or appetite. Inspect feet frequently monitoring for open wounds , and also recommend yearly eye exam. Is under care of Endo for this Is taking arb, statin, asa, insulin as well Current A1c is 9.5% on 07/31 Assessment & Plan (05/09/2024 1:44 PM EST): Sugars are running 200-300, mother a few weeks back Check blood sugars daily, notify if <70 or >200. Take medications (pills or insulin) as directed. Monitor for s/s of hypoglycemia (sweaty, dizziness, nausea, vomiting, or shakiness). Watch for increase in thirst, urination, or appetite. Inspect feet frequently monitoring for open wounds , and also recommend yearly eye exam. Is under care of Endo for this Is taking arb, statin, asa Assessment & Plan (12/12/2023 7:24 PM EDT): Will continue with Erin for mgmt of her diabetes Assessment & Plan (09/08/2023 7:06 PM EDT): Check blood sugars daily, notify if <70 or >200. Take medications (pills or insulin) as directed. Monitor for s/s of hypoglycemia (sweaty, dizziness, nausea, vomiting, or shakiness). Watch for increase in thirst, urination, or appetite. Inspect feet frequently monitoring for open wounds , and also recommend yearly eye exam. Pt should attempt to remain as physically active as chronic conditions allow, as well as trying to follow a diet low in carbohydrates, and simple sugars. Cont with dr jarvis Assessment & Plan (06/09/2023 6:35 PM EST): Is under the care of Dr Jarvis for treatment of diabetes Fu in the next few weeks Anxiety and depression 06/09/2023 Assessment & Plan (08/13/2024 2:35 PM EDT): Current medication is Duloxetine FRANCES 7=4 PHQ 9=3 Assessment & Plan (05/09/2024 7:15 AM EST): Mother recently Current medication is duloxetine at 60mg Assessment & Plan (02/08/2024 2:34 PM EDT): Stable on current meds Assessment & Plan (09/08/2023 7:06 PM EDT): Stable on current meds Assessment & Plan (06/09/2023 6:35 PM EST): No changes in meds, happy with response Mixed hyperlipidemia 04/24/2020 Assessment & Plan (08/13/2024 6:53 AM EDT): Is on statin therapy Check labs yearly and prn dose changes Resolved Problems Problem Noted Date Diagnosed Date Resolved Date Malignant neoplasm of thyroid gland 12/12/2023 02/08/2024 Sinusitis 10/27/2023 02/08/2024 Other acute sinusitis 07/07/20232023 BMI 45.0-49.9, adult 06/09/2023 024 Thyroid cancer 06/04/2020 08/13/2024 Encounters Date Type Department Care Team Description 10/30/2024 Orders Only [facility] [address] [place] [address] Katalina Colbert NP 10/14/2024 Refill [facility] [address] [place] [address] Katalina Colbert NP Vitamin D deficiency, unspecified 09/15/2024 Refill [facility] [address] [place] [address] Katalina Colbert NP Uncontrolled type 2 diabetes mellitus 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, with long-term current use of insulin ([facility]) (Primary Dx) 09/07/2024 Telephone [facility] [address] [place] [id number] Sarah Jarvis MD Med Refill 09/05/2024 Refill [facility] [address] [place] [address] Katalina Colbert NP Essential hypertension (CMS/HCC) 08/24/2024 Refill [facility] [address] [place] [address] Katalina Colbert NP Allergic rhinitis, unspecified seasonality, unspecified trigger 08/13/2024 2:00 PM EDT Office Visit [facility] [address] [place] [address] Katalina Colbert NP Anxiety and depression (CMS/HCC) (Primary Dx); KARINE (obstructive sleep apnea); Essential hypertension (CMS/HCC) ; Bilateral lower extremity edema; Class 3 severe obesity due to excess calories with serious comorbidity and body mass index (BMI) of 50.0 to 59.9 in adult (CMS/HCC); Papillary thyroid carcinoma (CMS/HCC) ; Uncontrolled type 2 diabetes mellitus 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, with long-term current use of insulin (CMS/HCC); Mixed hyperlipidemia (CMS/HCC) ; Pap smear for cervical cancer screening 08/13/2024 Orders Only [facility] [address] [place] [address] Mason Stephens MD 08/13/2024 Travel 08/13/2024 Refill [facility] [address] [place] [address] Katalina Colbert NP Chronic pain syndrome 08/11/2024 Refill [facility] [address] [place] [address] Katalina Colbert NP Chronic pain syndrome from Last 3 Months Immunizations Immunization Administration Dates Next Due Hep B, adult 08/11/2001,02/17/2001,03/09/2000 Influenza, High Dose Seasona l, Preservative Free 03/25/2020,04/05/2019,03/22/2018 Influenza, Recombinant, inje ctable, preservative free 02/24/2024 Influenza, injectable, quadr ivalent, preservative free 03/25/2020,03/22/2018 Influenza, seasonal, injectable 03/19/2019,03/04,03/23/2013 Novel [id number], preservative-free 04/15 Pneumococcal Conjugate PCV 20 02/24/2024 Pneumococcal Polysaccharide PPSV23 03/25/2020 Zoster, Recombinant 02/24/2024 Family History Medical History Relation Name Comments Alzheimer's disease Father Harpreet Appendicitis Father Harpreet removal Atrial fibrillation Father Harpreet Cancer Father Harpreet Colon cancer Father Harpreet Coronary artery disease Father Harpreet Diabetes Father Harpreet Edema Father Harpreet GREGORY disease Father Harpreet Gallbladder disease Father Harpreet removal Heart attack Father Harpreet Heart disease Father Harpreet Hernia Father Harpreet surgery Hypersomnolence Father Harpreet Hypertension Father Harpreet Obesity Father Harpreet RBBB Father Harpreet Sleep apnea Father Harpreet Supraventricular tachycardia Father Harpreet Heart attack Maternal Grandfather No Known Problems Maternal Grandmother Allergy (severe) Mother Kim Sulfa drugs Asthma Mother Kim Atrial fibrillation Mother Kim COPD Mother Kim Cancer Mother Kim Ovarian and col on cancer Carpal tunnel syndrome Mother Kim both hands Diabetes Mother Kim Heart attack Mother Kim Heart disease Mother Kim Hypertension Mother Kim Hysterectomy Mother Kim ovarian cancer Thyroid disease Mother Kim Cole Parkinson White syndrome Mother Kim hernia repair Mother Kim uterine problem Mother Kim Alzheimer's disease Paternal Grandfather Cancer Paternal Grandmother Breast cancer No Known Problems Sister Relation Name Status Comments Father Harpreet Alive Maternal Grandfather Maternal Grandmother Mother Kim Alive Paternal Grandfather Paternal Grandmother Sister Social History Tobacco Use Types Packs/Day Years Used Date Smoking Tobacco: Former Cigarettes Tobacco Cessation:Counseling Given: Not Answered Comments:Last smoked: 5-10 years ago Alcohol Use Standard Drinks/Week Comments Not Currently 0 (1 standard drink = 0.6 oz pure alcohol) caffeine more than 4 cups per day [id number] Health Literacy Answer Date Recor ded How often do you need to hav e someone help you when you read instructions, pamphlets, or other written material from your doctor or pharmacy? Never 08/13/2024 Humiliation, Afraid, Rape, and Kick questionnair e [...] neighbors? More than three times a week 08/13/2024 How often do you get togethe r with friends or relatives? Three times a week 08/13/2024 How often do you attend chur or advent services? More than 4 times per year 08/13/2024 Do you belong to any clubs o r organizations such as spiritism groups, unions, fraternal or athletic groups, or school groups? No 08/13/2024 How often do you attend meet ings of the clubs or organizations you belong to? Never 08/13/2024 Are you , , di vorced, , never , or living with a partner? Never 08/13/2024 AUDIT-C Answer Date Recorded Q1: How often do you have a drink containing alcohol? Never 08/13/2024 Q2: How many drinks containi ng alcohol do you have on a typical day when you are drinking? Patient does not drink Q3: How often do you have si x or more drinks on one occasion? Never 08/13/2024 Overall Financial Resource Strain (CARDIA) Answe r Date Recorded How hard is it for you to pa y for the very basics like food, housing, medical care, and heating? Somewhat hard 08/13/2024 [facility] [place] [facility] Occupat ional [facility] - Occupational Stress Questionnaire Answer Date Recorded Do you feel stress - tense, restless, nervous, or anxious, or unable to sleep at night because your mind is troubled all the time - these days? To some extent 08/13/2024 Exercise Vital Sign Answer Date Recorde d On average, how many days pe r week do you engage in moderate to strenuous exercise (like a brisk walk)? 2 days 08/13/2024 On average, how many minutes do you engage in exercise at this level? 20 min 08/13/2024 Hunger Vital Sign Answer Date Recorded Within the past 12 months, y ou worried that your food would run out before you got the money to buy more. Never true 08/14/19 25 Within the past 12 months, t he food you bought just didn't last and you didn't have money to get more. Never true 08/13/2024 PRAPARE - Transportation Answer Date Re corded In the past 12 months, has l ack of transportation kept you from medical appointments or from getting medications? No 08/04 In the past 12 months, has l ack of transportation kept you from meetings, work, or from getting things needed for daily living? No 08/13/2024 Housing Stability Vital Sign Answer Emanuel e [...] place to sleep or slept in a long term (including now)? No 06/02/2023 Housing Stability Vital Sign Answer Emanuel e Recorded In the last 12 months, was t here a time when you were not able to pay the mortgage or rent on time? No 08/13/2024 In the past 12 months, how m any times have you moved where you were living? 0 08/13/2024 At any time in the past 12 [facility], were you homeless or living in a long term (including now)? No 08/13/2024 Comments Unknown Sex and Gender Information Value Date Recorded Sex Assigned at Female 06/10/2023 3:59 AM EST Legal Sex Female 7:29 PM EDT Gender Identity Female 06/10/2023 3:59 AM EST Sexual Orientation Straight 06/10/2023 3: 59 AM EST Last Filed Vital Signs Vital Sign Reading Time Taken Comments Blood Pressure 120/72 08/13/2024 2:12 PM EDT Pulse 92 08/13/2024 2:12 PM EDT Temperature 36.9 C (98.4 F) 08/13/2024 2:12 PM EDT Respiratory Rate 22 08/13/2024 2:12 PM EDT Oxygen Saturation 95% 08/13/2024 2:12 PM EDT Inhaled Oxygen Concentration - - Weight 133 kg (292 lb 6.4 oz) 08/13/2024 2:12 PM EDT Height 162.6 cm (5' 4 ) 08/13/2024 2:12 PM EDT Body Mass Index 50.19 08/13/2024 2:12 PM EDT Plan of Treatment Upcoming Encounters Date Type Department Care Team (Late st Contact Info) Description 11/08/2024 11:20 AM EDT Office Visit [facility] [address] [place] [address] Sarah Jarvis MD [address] [place] [address] 11/13/2024 3:00 PM EDT Office Visit [facility] [address] [place] [address] Katalina Colbert NP [address] [place] [address] 11/22/2024 3:00 PM EDT Office Visit [facility] [address] [place] [id number] Alexa Pulliam CNM [address] [place], [place] [id number] Health Maintenance Due Date Last Done Comments CT Colonography 1967 FIT-DNA 1967 FIT 1967 FOBT 1965 Sigmoidoscopy 1965 HPV/Cotest 1997 Diabetes: Hemoglobin A1C 10/10/2024 025, 03/08/2024, 11/07/2023, Additional history exists Diabetes: Urine Protein Screening 12/06/2024 024, 10/12/2022 Mammogram 06/12/2025 06/12/2024, 04/07, 05/04/2023 Diabetes: Retinopathy Screening 05/10/2026 , 02/28/2023 Cervical Cancer Screening 06/09/2026 Pap Smear 06/09/2026 06/09/2023 (Patient Refused) Colonoscopy 09/26/2028 09/27/2023, 09/27/2023 Colorectal Cancer Screening 09/26/2028 Influenza Vaccine Completed 02/24/2024, , 03/25/2020, Additional history exists Procedures Procedure Name Priority Date/Time Associated Diagnosis Comments XR CHEST 1 VIEW Routine 10/30/2024 2:36 PM EDT US PELVIS TRANSVAGINAL Routine 3:15 PM EDT POCT GLYCOSYLATED HEMOGLOBIN (HGB A1C) Routine 07/13/2024 10:48 AM EST Type 2 diabetes mellitus 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, with long-term current use of insulin ([facility]) MM TOMOSYNTHESIS SCREENING BI 06/12/2024 4:43 PM EST from Last 3 Months or Most Recently Relevant to Health Maintenance Results * XR chest 1 view (10/30/2024 2:36 PM EDT) Anatomical Region Laterality Modality Chest Radiographic Cris ging Katalina Colbert NP IMG XR PROCEDURES Final Result * US pelvis transvaginal (08/13/2024 3:15 PM EDT) Anatomical Region Laterality Modality Pelvis Ultrasound Mason Stephens MD IMG US PROCEDURES Final Result * (ABNORMAL) POCT glycosylated hemoglobin (Hb A1C) docked device (07/13/2024 10:48 AM EST) Hemoglobin A1C 9.5 Blood Venous blood specimen / Unknown 07/13/2024 10:48 AM EST Sarah Jarvis MD POINT OF CARE TEST ENTER/EDIT ORDERABLES Final Result * MM TOMOSYNTHESIS SCREENING BI (06/12/2024 4:43 PM EST) Anatomical Region Laterality Modality Other 06/12/2024 4:43 PM EST Narrative 06/12/2024 4:45 PM EST The [address] [address] Mammography Report Signed Patient: KATALINA HUTCHINS MR#: [id number] : 1965 Acct:[id number] Age/Sex: 59 / F ADM Date: 06/12/24 Loc: MAMMO Attending Dr: Katalina Colbert NP Ordering Physician: Katalina Colbert NP Results: Date of Service: 06/12/24 Follow Up: Procedure(s): MM tomosynthesis screening BI Accession Number(s): [id number] cc: Katalina Colbert NP Patient Name: KATALINA HUTCHINS MR#: [id number] : 1965 Exam Date: 06/12/2024 Ordering Doctor: TARIK Colbert DIRECTOR OF CARDIOPULMONARY SERVICES RADIOLOGY REPORT PROCEDURE: MM TOMOSYNTHESIS SCREENING BI [...] uterine cancer at age 28. LOCATION: The [facility] BREAST COMPOSITION: There are scattered areas [...] M.D. Signed By: 06/12/241644 DD/ 42 TD/TT: Specimen Boss: Procedure Note Radiology, Radiologist, MD - 06/12/2024 [place] [address] Mammography Report Signed Patient: KATALINA HUTCHINS MMR#: [id number] : 1965Acct:[id number] Age/Sex: 59 / FADM Date: 06/12/24 Loc: MAMMO Attending Dr: Katalina Colbert NP Ordering Physician: Katalina Colbert NPResults: Date of Service: 06/12/24Follow Up: Procedure(s): MM tomosynthesis screening BI Accession Number(s): [id number] cc: Katalina Colbert NP Patient Name: KATALINA HUTCHINS MR#: [id number] : 1965 Exam Date: 06/12/2024 Ordering Doctor: TARIK Colbert DIRECTOR OF CARDIOPULMONARY SERVICES RADIOLOGY REPORT PROCEDURE: MM TOMOSYNTHESIS SCREENING BI COMPARISON: MM TOMOSYNTHESIS SCREENING BI, 04/29/2023. MG MAMM [id number] FRANCI CAD, 04/27/2022. MG MAMM SCREEN 3D [...] uterine cancer at age 28. LOCATION: [facility] BREAST COMPOSITION: There are scattered areas [...] 16:43 Dictated By: Matias Edwards M.D. Signed By:06/12/245 DD/ 42 TD/TT: Specimen Boss: Katalina Colebrt NP [facility] Final Result from Last 3 Months or Most Recently Relevant to Health Maintenance Insurance [employer] Care Teams Vocational Training Instructor Relationship Specialty Start Date End Date Kervin Stevens MD [address] [place] [address] PCP - General Family Medicine 06/01/23 Katalina Colbert NP [address] [place] [address] Nurse Practitioner Family Medicine 03/06/23
--- OUTSIDE RECORDS SUMMARY | 2024-11-02 12:48 | XMS_ITS | Encounter Summary ---
Author Organization [facility] Address [address] [place] [address] Care Team Providers Care Communications Associate Name Role Phone Katalina Colbert [employer] ARTISTIC DIRECTOR Unavailable [phone] Kerivn Steevns MD Primary Care Provider [phone] Encounter Details Date Type Department Care Team (Late st Contact Info) Description 08/13/2024 Orders Only [facility] [address] [place] [address] Mason Stephens MD [address] [place] [address] Social History Tobacco Use Types Packs/Day Years [...] How often do you attend chur or yazidism services? More than 4 times per year 08/13/2024 Do you belong to any clubs o r organizations such as jainism groups, unions, fraternal or athletic groups, or [...] medical care, and heating? Somewhat hard 08/13/2024 [facility] - [...] place to sleep or slept in a assisted (including now)? No 06/02/2023 Housing Stability Vital Sign Answer Emanuel e Recorded In the last 12 months, was t here a time when you were not able to pay the mortgage or rent on time? No 08/13/2024 In the past 12 months, how m any times have you moved where you were living? 0 08/13/2024 At any time in the past 12 m [facility], were you homeless or living in a assisted (including now)? No 08/13/2024 Comments Unknown Sex and Gender Information Value Date Recorded Sex Assigned at Female 06/10/2023 3:59 AM EST Legal Sex Female 7:29 PM EDT Gender Identity Female 06/10/2023 3:59 AM EST Sexual Orientation Straight 06/10/2023 3: 59 AM EST documented as of this encounter Functional Status * Audit-C Score Answer Date of Assessment Author 0 08/13/2024 8:46 AM EDT Rolan, Generic * Q1: How often do you have a drink containing alcohol? Answer Date of Assessment Author Never 08/13/2024 8:46 AM EDT Rolan, Generic * Q2: How many drinks containing alcohol do you have on a typical day when you are drinking? Answer Date of Assessment Author Patient does not drink 08/13/2024 8:46 AM EDT My chart, Generic * Q3: How often do you have six or more drinks on one occasion? Answer Date of Assessment Author Never 08/13/2024 8:46 AM EDT Mychart, Generic documented as of this encounter Plan of Treatment Upcoming Encounters Date Type Department Care Team (Late st Contact Info) Description 11/08/2024 11:20 AM EDT Office Visit [facility] [address] [place] [address] Sarah Khan MD [address] [place] [address] 11/13/2024 3:00 PM EDT Office Visit [facility] [address] [place] [address] Katalina Colbert NP [address] [place] [address] 11/22/2024 3:00 PM EDT Office Visit [facility] [address] [place] [address] Alexa Pulliam, CNM [address] [place] [address] documented as of this encounter Procedures Procedure Name Priority Date/Time Associated Diagnosis Comments US PELVIS TRANSVAGINAL Routine 08/13/2024 3:15 PM EDT documented in this encounter Results * US pelvis transvaginal (08/13/2024 3:15 PM EDT) Anatomical Region Laterality Modality Pelvis Ultrasound us Mason Stephens MD IM US PROCEDURES Final Result documented in this encounter Visit Diagnoses Not on filedocumented in this encounter Care Teams Communications Associate Relationship Specialty Start Date End Date Kervin Stevens MD [address] [place] [address] PCP - General Family Medicine 06/01/23 Katalina Colbert NP [address] [place] [address] Nurse Practitioner Family Medicine 03/06/23 documented as of this encounter
--- OUTSIDE RECORDS SUMMARY | 2024-11-02 12:48 | XMS_ITS | Encounter Summary ---
Author Organization [facility] Address [address] [place] [address] Care Team Providers Care Reel Assembler Name Role Phone Katalina Colbert FLOW FLOOR ATTENDANT Unavailable [phone] Kervin Stevens MD Primary Care Provider [phone] Encounter Details Date Type Department Care Team (Late st Contact Info) Description 10/30/2024 Orders Only [facility] [address] [place] [address] Katalina Colbert NP [address] [place] [address] Social History Tobacco Use Types Packs/Day Years [...] any clubs o r organizations such as evangelical groups, unions, fraternal or athletic groups, or [...] medical care, and heating? Somewhat hard 08/13/2024 [facility] - Occupational [...] place to sleep or slept in a penitentiary (including now)? No 06/02/2023 Housing Stability Vital Sign Answer Emanuel e Recorded In the last 12 months, was t here a time when you were not able to pay the mortgage or rent on time? No 08/13/2024 In the past 12 months, how m any times have you moved where you were living? 0 08/13/2024 At any time in the past 12 m [facility], were you homeless or living in a penitentiary (including now)? No 08/13/2024 Comments Unknown Sex [...] [facility] [address] [place] [address] Sarah Khan MD [address] [place] [address] 11/13/2024 3:00 PM EDT Office Visit [facility] [address] [place] [address] Katalina Colbert NP [address] [place] [address] 11/22/2024 3:00 PM EDT Office Visit [facility] [address] [place] [address] Alexa Pulliam CNM [address] [place], [place] [phone] documented as of this encounter Procedures Procedure Name Priority Date/Time Associated Diagnosis Comments XR CHEST 1 VIEW Routine 10/30/2024 2:36 PM EDT documented in this encounter Results * XR chest 1 view (10/30/2024 2:36 PM EDT) Anatomical Region Laterality Modality Chest Radiographic Cris ging Katalina Colbert NP IMG XR PROCEDURES Final Result documented in this encounter Visit Diagnoses Not on filedocumented in this encounter Care Teams Reel Assembler Relationship Specialty Start Date End Date Kervin Stevens MD [address] [place] [address] PCP - General Family Medicine 06/01/23 Katalina Colbert NP [address] [place] [address] Nurse Practitioner Family Medicine 03/06/23 documented as of this encounter
--- OUTSIDE RECORDS SUMMARY | 2024-11-02 12:48 | XMS_ITS | Encounter Summary ---
Author Organization [facility] Address [address] [place] [address] Care Team Providers Care Lobbyist Name Role Phone Katalina Colbert PUPIL PERSONNEL SERVICES DIRECTOR Unavailable [phone] Kervin Stevens MD Primary Care Provider [phone] Encounter Details Date Type Department Care Team (Late st Contact Info) Description 01/22/2024 Clinisync Result Encounter [facility] External Department Unsolicited Katalina Colbert, NETTIE [address] [place] [address] Social History Tobacco Use Types Packs/Day Years [...] often do you attend chur ch or buddhist services? More than 4 times per year 06/02/2023 Do you belong to any clubs o r organizations such as sikh groups, unions, fraternal or athletic groups, or [...] medical care, and heating? Somewhat hard 06/02/2023 [facility]at [facility] - Occupational [...] place to sleep or slept in a half-way (including now)? No 06/02/2023 Comments Unknown Sex [...] Visit [facility] [address] [place] [address] Sarah Khan MD [address] [place] [address] 11/13/2024 3:00 PM EDT Office Visit [facility] [address] [place] [address] Katalina Colbert NP [address] [place] [address] 11/22/2024 3:00 PM EDT Office Visit [facility] [address] [place] [address] Alexa Pulliam, SHAWNAM [address] [place] [address] documented as of this encounter Procedures Procedure Name Priority Date/Time Associated Diagnosis Comments XR HIP LT MIN 2V 01/22/2024 9:40 AM EDT documented in this encounter Results * XR HIP LT MIN 2V (01/22/2024 9:40 AM EDT) Anatomical Region Laterality Modality Other 01/22/2024 9:40 AM EDT Narrative 01/22/2024 9:42 AM EDT [address] [address] XRay Report Signed Patient: KATALINA HUTCHINS MR#: [id number] : 1965 Acct:[id number] Age/Sex: 58 / F ADM Date: 01/18/24 Loc: TEZ Attending Dr: Katalina Colbert PUPIL PERSONNEL SERVICES DIRECTOR Ordering Physician: Katalina Colbert NP Date of Service: 01/18/24 Procedure(s): XR hip LT min 2V Accession Number(s): [id number] cc: Katalina Colbert NP [address] [address] Patient Name: KATALINA HUTCHINS MRN: [id number] date: 1965 Sex: F Assigned Patient Location: [facility] Current Patient Location: RAD Accession/Order Number: [id number] Exam Date: 01/18/2024 18:20 Report Date: 01/22/2024 09:40 At the request of: KATALINA COLBERT Procedure: XR hip LT min 2V PROCEDURE: XR hip LT min 2V COMPARISON: None. HISTORY: Pain in left hip, M25.552 FINDINGS: BONES:No fracture, acute abnormality, or significant arthropathy. SOFT TISSUES:Negative. No visible soft tissue swelling. EFFUSION:None visible. OTHER: Underpenetration limiting the exam XR/XR hip LT min 2V IMPRESSION: No acute radiographic abnormality Electronically authenticated by: LIV HORNE Date: 01/22/2024 09:40 Dictated By: Liv Horne M.D. Signed By: 01/22/2442 DD/ 9 TD/TT: Surgeon'S Assistant: Procedure Note Radiology, Radiologist, - 01/22/2024 [facility] [place] [id number] XRay Report Signed Patient: KATALINA HUTCHINS MMR#: [id number] : 1965Acct:[id number] Age/Sex: 58 / FADM Date: 01/18/24 Loc: RAD Attending Dr: Katalina Colbert PUPIL PERSONNEL SERVICES DIRECTOR Ordering Physician: Katalina Colbert NP Date of Service: 01/18/24 Procedure(s): XR hip LT min 2V Accession Number(s): [id number] cc: Katalina Colbert NP [place] [address] Patient Name: KATALINA HUTCHINS MRN: [facility]:[id number] date: 1965 Sex: F Assigned Patient Location: [facility] Current Patient Location: [facility] Accession/Order Number: [id number] Exam Date: 01/18/2024 18:20 Report Date: 01/22/2024 09:40 At the request of: KATALINA COLBERT Procedure: XR hip LT min 2V PROCEDURE: XR hip LT min 2V COMPARISON: None. HISTORY: Pain in left hip, M25.552 FINDINGS: BONES:No fracture, acute abnormality, or significant arthropathy. SOFT TISSUES:Negative. No visible soft tissue swelling. EFFUSION:None visible. OTHER: Underpenetration limiting the exam XR/XR hip LT min 2V IMPRESSION: No acute radiographic abnormality Electronically authenticated by: LIV HORNE Date: 01/22/2024 09:40 Dictated By: Liv Horne M.D. Signed By:01/22/24941 DD/ 9 TD/TT: Surgeon'S Assistant: Katalina Colbert PUPIL PERSONNEL SERVICES DIRECTOR [facility] Final Result documented in this encounter Visit Diagnoses Not on filedocumented in this encounter Care Teams Lobbyist Relationship Specialty Start Date End Date Kervin tSevens MD [address] [place] [address] PCP - General Family Medicine 06/01/23 Katalina Colbert NP [address] [place] [address] Nurse Practitioner Family Medicine 03/06/23 documented as of this encounter
--- OUTSIDE RECORDS SUMMARY | 2024-11-02 12:48 | XMS_ITS | Clinical Summary ---
Author Organization [facility] Address [id number] [address] [place] [address] Care Team Providers Care Hearing Aid Technician Name Role Phone Kervin Stevens MD Primary Care Provider [phone] Allergies Active Allergy Reactions Criticality Noted Date Comments Adhesive Rash Medium 05/11/2012 Latex Rash Low 08/29/2018 Medications metFORMIN (GLUCOPHAGE) 1000 mg tablet Take 1 tablet (1,000 mg total) by mouth in the morning and 1 tablet (1,000 mg total) in the evening. Take with meals. 8 Active losartan (COZAAR) 50 mg tablet Take 2 tablets (100 mg total) by mouth in the morning. 8 Active hydroCHLOROthia zide (MICROZIDE) 12.5 mg capsule Take 1 capsule (12.5 mg total) by mouth daily. 8 Active fluticasone (FLONASE) 50 mcg/actuation nasal spray Administer 1 spray into each nostril in the morning. 8 Active aspirin 81 mg chewable tablet Chew 1 tablet (81 mg total) and swallow. Active cetirizine (ZyrTEC) 10 mg tablet Take 1 tablet (10 mg total) by mouth. Active multivitamin (THERAGRAN) tablet Take 1 tablet by mouth. Active cholecalciferol , vitamin D3, (VITAMIN D3) 1,000 units tablet Take 1 tablet (1,000 Units total) by mouth. Active ibuprofen (ADVIL,MOTRIN) 200 mg tablet Take 1 tablet (200 mg total) by mouth every 6 (six) hours as needed for pain. Active albuterol (PROVENTIL HFA;VENTOLIN HFA) 90 mcg/actuation inhaler 1 9 Active insulin glargine (LANTUS, BASAGLAR) 100 unit/mL (3 mL) insulin pen Inject 60 Units under the skin nightly. Active levothyroxine (SYNTHROID, LEVOTHROID) 200 MCG tablet Take 1 tablet (200 mcg total) by mouth in the morning. Active tiZANidine (ZANAFLEX) 4 mg tablet Take 1 tablet (4 mg total) by mouth every 6 (six) hours as needed for muscle spasms. Active DULoxetine (CYMBALTA) 60 mg capsule Take 1 capsule (60 mg total) by mouth in the morning. Active MOUNJARO 5 mg/0.5 mL pen injector once a week. Active insulin lispro (HumaLOG) 100 unit/mL insulin pen INJECT 15-20-25 UNITS ACCORDING TO MEAL SIZE PLUS ISS #3 (MAX DAILY DOSE OF 100 UNITS) Active Active Problems No known active problems Family History Medical History Relation Name Comments Colon cancer Father Diabetes Father Heart attack Father Heart disease Maternal Grandfather COPD Mother Colon cancer Mother Diabetes Mother Heart attack Mother x2 Heart disease Mother Uterine cancer Mother Breast cancer Paternal Grandmother Colon cancer Paternal Grandmother Relation Name Status Comments Father Alive Maternal Grandfather Mother Alive Paternal Grandmother Social History Tobacco Use Types Packs/Day Years Used Date Smoking Tobacco: Former Cigarettes 1.5 25 S tarted: 1985 Smokeless Tobacco: Never Tobacco Cessation:Counseling Given: Not Answered Alcohol Use Standard Drinks/Week Comments Yes 0 (1 standard drink = 0.6 oz pur e alcohol) rare Childcare Answer Date Recorded Childcare Unknown 11/09/2018 Employment Answer Date Recorded Employment Unknown 11/09/2018 Purpose - Life Answer Date Recorded Purpose and direction in life Unknown Comments No Sex and Gender Information Value Date Recorded Sex Assigned at Not on file Legal Sex Female 11:34 AM EDT Gender Identity Not on file Sexual Orientation Not on file Last Filed Vital Signs Vital Sign Reading Time Taken Comments Blood Pressure 166/92 09/27/2023 9:45 AM EDT Pulse 102 09/27/2023 9:45 AM EDT Temperature 37.2 C (99 F) 09/27/2023 8:05 AM EDT Respiratory Rate 15 09/27/2023 9:45 AM EDT Oxygen Saturation 96% 09/27/2023 9:45 AM EDT Inhaled Oxygen Concentration - - Weight 132.9 kg (293 lb) 09/27/2023 8:05 AM EDT Height 162.6 cm (5' 4 ) 09/27/2023 8:05 AM EDT Body Mass Index 50.29 09/27/2023 8:05 AM EDT Plan of Treatment Health Maintenance Due Date Last Done Comments Depression Screening 1979 DTaP,Tdap and Td Vaccines (1 - Tdap) 1986 Pap Smear 01/25/1988 Zoster (Shingles) Vaccine (1 of 2) 2017 Adult BMI Screening 09/26/2024 09/27/2023 Tobacco Screening 09/26/2024 09/27/2023 Influenza Vaccine 02/04/2025 03/25/2020, , 03/22/2018 Colonoscopy 09/26/2028 09/27/2023, 09/05, 08/31/2018, Additional history exists Medical Devices Not on file Procedures Procedure Name Priority Date/Time Associated Diagnosis Comments PROVATION COLONOSCOPY Routine 09/27/2023 8:21 AM EDT from Last 3 Months or Most Recently Relevant to Health Maintenance Results * Colonoscopy Report (09/27/2023 8:21 AM EDT) Narrative SYSTEMGENERATED, DOCUMENTATION - 09/27/2023 8:21 AM EDT This order has been auto-finalized for image and report archival in PACs. *For full report details, please reach out to your physician. This image is visible to you in MyChart.* Maninder Holt DO IMG OR IMG ORDERABLES Final Result from Last 3 Months or Most Recently Relevant to Health Maintenance Insurance [employer] Care Teams Hearing Aid Technician Relationship Specialty Start Date End Date Kervin Stevens MD PCP - General 08/11/17
--- OUTSIDE RECORDS SUMMARY | 2024-11-02 12:48 | XMS_ITS | Encounter Summary ---
Author Organization [facility] Address [address] [place] [address] Care Team Providers Care Aircraft Maintenance Director Name Role Phone Katalina Colbert HOUSE MANAGER Unavailable [phone] Kervin Stevens MD Primary Care Provider [phone] Encounter Details Date Type Department Care Team (Late st Contact Info) Description 01/22/2024 Clinisync Result Encounter [facility] External Department Unsolicited Katalina Colbert, NETTIE [address] [place] [address] Social History Tobacco Use Types Packs/Day Years [...] often do you attend chur ch or sikhism services? More than 4 times per year 06/02/2023 Do you belong to any clubs o r organizations such as caodaism groups, unions, fraternal or athletic groups, or [...] medical care, and heating? Somewhat hard 06/02/2023 [facility] Occupat ional Health - Occupational Stress [...] place to sleep or slept in a detention (including now)? No 06/02/2023 Comments Unknown Sex [...] Visit [facility] [address] [place] [address] Sarah Khan MD [address] [place] [address] 11/13/2024 3:00 PM EDT Office Visit [facility] [address] [place] [address] Katalina Colbert NP [address] [place] [address] 11/22/2024 3:00 PM EDT Office Visit [facility] [address] [place] [address] Alexa Pulliam, SHAWNAM [address] [place] [address] documented as of this encounter Procedures Procedure Name Priority Date/Time Associated Diagnosis Comments XR LUMBAR SPINE 2 OR 3V 01/22/2024 9:39 AM EDT documented in this encounter Results * XR LUMBAR SPINE 2 OR 3V (01/22/2024 9:39 AM EDT) Anatomical Region Laterality Modality Radiographic Cris ging 01/22/2024 9:39 AM EDT Narrative 01/22/2024 9:42 AM EDT [address] [address] XRay Report Signed Patient: KATALINA HUTCHINS MR#: [id number] : 1965 Acct:[id number] Age/Sex: 58 / F ADM Date: 01/18/24 Loc: TEZ Attending Dr: Katalina Colbert HOUSE MANAGER Ordering Physician: Katalina Colbert NP Date of Service: 01/18/24 Procedure(s): XR lumbar spine 2-3V Accession Number(s): [id number] cc: Katalina Colbert NP [address] [address] Patient Name: KATALINA HUTCHINS MRN: [id number] date: 1965 Sex: F Assigned Patient Location: [facility] Current Patient Location: RAD Accession/Order Number: [id number] Exam Date: 01/18/2024 18:20 Report Date: 01/22/2024 09:39 At the request of: KATALINA COLBERT Procedure: XR lumbar spine 2-3V EXAMINATION: XR lumbar spine 2-3V HISTORY: Lumbar back pain, M54.16 COMPARISON: No relevant comparison available. FINDINGS: BONES: Normal alignment with no acute fracture or spondylolisthesis. Mild spondylosis and facet osteoarthropathy DISC SPACES: Normal. No significant disc height narrowing, subluxation, or endplate abnormality. PARASPINOUS: Negative. No paraspinous abnormality is seen. OTHER: Vascular calcifications XR/XR lumbar spine 2-3V IMPRESSION: Mild degenerative change Electronically authenticated by: LIV HORNE Date: 01/22/2024 09:39 Dictated By: Liv Horne M.D. Signed By: 01/22/2442 DD/ 8 TD/TT: Dialysis Patient Care Technician: Procedure Note Radiology, Radiologist, - 01/22/2024 [place] [address] XRay Report Signed Patient: KATALINA HUTCHINS MMR#: [id number] : 1965Acct:[id number] Age/Sex: 58 / FADM Date: 01/18/24 Loc: TEZ Attending Dr: Katalina Colbert NP Ordering Physician: Katalina Colbert NP Date of Service: 01/18/24 Procedure(s): XR lumbar spine 2-3V Accession Number(s): [id number] cc: Katalina Colbert NP [facility] [place] [address] Patient Name: KATALINA HUTCHINS MRN: [id number] date: 1965 Sex: F Assigned Patient Location: [facility] Current Patient Location: [facility] Accession/Order Number: [id number] Exam Date: 01/18/2024 18:20 Report Date: 01/22/2024 09:39 At the request of: KATALINA COLBERT Procedure: XR lumbar spine 2-3V EXAMINATION: XR lumbar spine 2-3V HISTORY: Lumbar back pain, M54.16 COMPARISON: No relevant comparison available. FINDINGS: BONES: Normal alignment with no acute fracture or spondylolisthesis. Mild spondylosis and facet osteoarthropathy DISC SPACES: Normal. No significant disc height narrowing, subluxation, or endplate abnormality. PARASPINOUS: Negative. No paraspinous abnormality is seen. OTHER: Vascular calcifications XR/XR lumbar spine 2-3V IMPRESSION: Mild degenerative change Electronically authenticated by: LIV HORNE Date: 01/22/2024 09:39 Dictated By: Liv Horne M.D. Signed By:01/22/2442 DD/ 0939 TD/TT: Dialysis Patient Care Technician: us Katalina Colbert HOUSE MANAGER IMG XR PROCEDURES Final Result documented in this encounter Visit Diagnoses Not on filedocumented in this encounter Care Teams Aircraft Maintenance Director Relationship Specialty Start Date End Date Kervin Stevens MD [address] [place] [address] PCP - General Family Medicine 06/01/23 Katalina Colbert NP [address] [place] [address] Nurse Practitioner Family Medicine 03/06/23 documented as of this encounter
--- OUTSIDE RECORDS SUMMARY | 2024-11-02 12:48 | XMS_ITS ---
Author Organization [facility] Address [address] [place] [address] Care Team Providers Care Boat Buffer Plastic Name Role Phone Katalina Colbert CNP Primary Care Provider [phone] Zion Nugent MD Unavailable [phone] Active Problems Problem Noted Date Diagnosed Date Thyroid cancer 06/04/2020 Bicipital tendinitis 11/23/2012 Rotator cuff (capsule) sprain 08/07/2012 Cervicalgia 08/07/2012 Current Treatment and Therapy Plans No current plan information found. Past Treatment and Therapy Plans NON-CHEMO 1 Plan Name Start Date Discontinue Date Treatment Medications Discontinue Reason Plan Provider Cycles THYROTROPIN MARYA 0.9 MG D1,2 - Q28D 1 01/08/2022 thyrotropin marya (THYROGEN) Other Zion Nugent MD 1 of 1 cycle started
--- OUTSIDE RECORDS SUMMARY | 2024-11-02 12:48 | XMS_ITS | Encounter Summary ---
Author Organization [facility] Address [address] [place] [address] Care Team Providers Care Wool Hanker Name Role Phone Katalina Colbert BAG MACHINE OPERATOR HELPER Unavailable [phone] Kervin Stevens MD Primary Care Provider [phone] Reason for Visit * Reason Comments Med Refill Encounter Details Date Type Department Care Team (Late st Contact Info) Description 08/24/2024 Refill [facility] [address] [place] [address] Katalina Colbert, BAG MACHINE OPERATOR HELPER [address] [place] [address] Allergic rhinitis, unspecified seasonality, unspecified trigger Social History Tobacco Use Types Packs/Day Years [...] How often do you attend chur or yazdanism services? More than 4 times per year 08/13/2024 Do you belong to any clubs o r organizations such as yazidism groups, unions, fraternal or athletic groups, or [...] medical care, and heating? Somewhat hard 08/13/2024 [facility] - Occupational Stress [...] in a half-way (including now)? No 06/02/2023 Housing Stability Vital Sign Answer Emanuel e Recorded In the last 12 months, was t here a time when you were not able to pay the mortgage or rent on time? No 08/13/2024 In the past 12 months, how m any times have you moved where you were living? 0 08/13/2024 At any time in the past 12 m [facility], were you homeless or living in a half-way (including now)? No 08/13/2024 Comments Unknown Sex [...] Visit [facility] [address] [place] [address] Sarah Khan MD [address] [place] [address] 11/13/2024 3:00 PM EDT Office Visit [facility] [address] [place] [address] Katalina Colbert, NETTIE [address] [place] [address] 11/22/2024 3:00 PM EDT Office Visit [facility] [address] [place] [address] Alexa Pulliam, CNM [address] [place], [place] [id number] documented as of this encounter Visit Diagnoses Diagnosis Allergic rhinitis, unspecified seasonality, unspecified trigger documented in this encounter Care Teams Wool Hanker Relationship Specialty Start Date End Date Kervin Stevens MD [address] [place] [address] PCP - General Family Medicine 06/01/23 Katalina Colbert, NETTIE [address] [place] [address] Nurse Practitioner Family Medicine 03/06/23 documented as of this encounter
--- OUTSIDE RECORDS SUMMARY | 2024-11-02 12:48 | XMS_ITS | Encounter Summary ---
Author Organization [facility] Address [address] [place] [address] Care Team Providers Care Manager Floor Name Role Phone Katalina Colbert WAREHOUSE SELECTOR Unavailable [phone] Kervin Stevens MD Primary Care Provider [phone] Encounter Details Date Type Department Care Team (Late st Contact Info) Description 05/14/2024 Orders Only [facility] [address] [place] [address] Sarah Khan MD [address] [place] [address] Social History Tobacco Use Types Packs/Day Years [...] often do you attend chur ch or orthodox services? More than 4 times per year 06/02/2023 Do you belong to any clubs o r organizations such as mosque groups, unions, fraternal or athletic groups, or [...] medical care, and heating? Somewhat hard 06/02/2023 [facility] - [...] in a penitentiary (including now)? No 06/02/2023 Comments Unknown Sex [...] Visit [facility] [address] [place] [address] Sarah Khan MD [address] [place] [address] 11/13/2024 3:00 PM EDT Office Visit [facility] [address] [place] [address] Katalina Colbert NP [address] [place] [address] 11/22/2024 3:00 PM EDT Office Visit [facility] [address] [place] [address] Alexa Pulliam, COLBY [address] [place] [address] documented as of this encounter Procedures Procedure Name Priority Date/Time Associated Diagnosis Comments DIABETES EYE EXAM Routine 05/14/2024 7:46 AM EST documented in this encounter Results * Diabetes Eye Exam (05/14/2024 7:46 AM EST) Sarah Khan MD HEALTH MAINTENANCE Final Resu lt documented in this encounter Visit Diagnoses Not on filedocumented in this encounter Care Teams Manager Floor Relationship Specialty Start Date End Date Kervin Stevens MD [address] [place] [address] PCP - General Family Medicine 06/01/23 Katalina Colbert NP [address] [place] [address] Nurse Practitioner Family Medicine 03/06/23 documented as of this encounter
--- OUTSIDE RECORDS SUMMARY | 2024-11-02 12:48 | XMS_ITS | Encounter Summary ---
Author Organization [facility] Address [address] [place] [address] Care Team Providers Care Production Corrugator Name Role Phone Katalina Colbert LACE FINISHER Unavailable [phone] Kervin Stevens MD Primary Care Provider [phone] Encounter Details Date Type Department Care Team (Late st Contact Info) Description 09/28/2023 [facility] [address] [place] [address] Maninder Holt [address] [id number] Social History Tobacco Use Types Packs/Day Years [...] any clubs o r organizations such as rastafari groups, unions, fraternal or athletic groups, or [...] medical care, and heating? Somewhat hard 06/02/2023 [facility] - [...] Visit [facility] [address] [place] [address] Sarah Khan MD [address] [place] [address] 11/13/2024 3:00 PM EDT Office Visit [facility] [address] [place] [address] Katalina Colbert NP [address] [place] [address] 11/22/2024 3:00 PM EDT Office Visit [facility] [address] [place] [address] Alexa Pulliam, CNM [address] [place] [address] documented as of this encounter Procedures Procedure Name Priority Date/Time Associated Diagnosis Comments SCANNED LABS Routine 09/28/2023 11:17 AM EDT documented in this encounter Results * SCANNED LABS (09/28/2023 11:17 AM EDT) Maninder Holt DO LAB CHG PERFORMABLES Final Re sult documented in this encounter Visit Diagnoses Not on filedocumented in this encounter Care Teams Production Corrugator Relationship Specialty Start Date End Date Kervin Stevens MD [address] [place] [address] PCP - General Family Medicine 06/01/23 Katalina Colbert NP [address] [place] [address] Nurse Practitioner Family Medicine 03/06/23 documented as of this encounter
--- OUTSIDE RECORDS SUMMARY | 2024-11-02 12:49 | XMS_ITS | Encounter Summary ---
Author Organization [facility] Address [address] [place] [address] Care Team Providers Care Clamp Truck Driver Name Role Phone Katalina Colbert INSOLE BEVELER Unavailable [phone] eKrvin Stevens MD Primary Care Provider [phone] Reason for Visit * Reason Comments Med Refill Encounter Details Date Type Department Care Team (Late st Contact Info) Description 08/03/2023 Refill [facility] [address] [place] [address] Katalina Colbert INSOLE BEVELER [address] [place] [address] Anxiety and depression (CMS/HCC) (Primary Dx); Mixed hyperlipidemia (CMS/HCC) Social History Tobacco Use Types Packs/Day Years [...] How often do you attend chur or religion services? More than 4 times per year 06/02/2023 Do you belong to any clubs o r organizations such as advent groups, unions, fraternal or athletic groups, or [...] medical care, and heating? Somewhat hard 06/02/2023 [facility] - Occupational [...] AM EDT Office Visit [facility] [address] [place] [address] Sarah Khan MD [address] [place] [address] 11/13/2024 3:00 PM EDT Office Visit [facility] [address] [place] [address] Katalina Colbert NP [address] [place] [address] 11/22/2024 3:00 PM EDT Office Visit [facility] [address] [place] [address] Alexa Pulliam, CNM [address] [place] [address] documented as of this encounter Visit Diagnoses Diagnosis Anxiety and depression (CMS/HCC)- Primary Mixed hyperlipidemia (CMS/HCC) Mixed hyperlipidemia documented in this encounter Care Teams Clamp Truck Driver Relationship Specialty Start Date End Date Kervin Stevens MD [address] [place] [address] PCP - General Family Medicine 06/01/23 Katalina Colbert NP [address] [place] [address] Nurse Practitioner Family Medicine 03/06/23 documented as of this encounter
--- OUTSIDE RECORDS SUMMARY | 2024-11-02 12:49 | XMS_ITS | Encounter Summary ---
Author Organization [facility] Address [address] [place] [address] Care Team Providers Care Security Specialist Name Role Phone Katalina Colbert CIVIL ENGINEER Unavailable [phone] Kervin Stevens MD Primary Care Provider [phone] Encounter Details Date Type Department Care Team (Late st Contact Info) Description 06/09/2023 Abstract [facility] [address] [place] [address] Katalina Colbert NP [address] [place] [address] Social History Tobacco Use Types Packs/Day Years [...] How often do you attend chur or yarsani services? More than 4 times per year [...] place to sleep or slept in a prison (including now)? No 06/02/2023 Comments Unknown Sex [...] Visit [facility] [address] [place] [address] Sarah Khan MD [address] [place] [address] 11/13/2024 3:00 PM EDT Office Visit [facility] [address] [place] [address] Katalina Colbert NP [address] [place] [address] 11/22/2024 3:00 PM EDT Office Visit [facility] [address] [place] [address] Alexa Pulliam, CNM [address] [place] [address] documented as of this encounter Visit Diagnoses Not on filedocumented in this encounter Care Teams Security Specialist Relationship Specialty Start Date End Date Kervin Stevens MD [address] [place] [address] PCP - General Family Medicine 06/01/23 Katalina Colbert NP [address] [place] [address] Nurse Practitioner Family Medicine 03/06/23 documented as of this encounter
--- OUTSIDE RECORDS SUMMARY | 2024-11-02 12:49 | XMS_ITS | Encounter Summary ---
Author Organization [facility] Address [address] [place] [address] Care Team Providers Care Air Brush Decorator Name Role Phone Katalina Colbert RECYCLING ASSISTANT Unavailable [phone] Kervin Stevens MD Primary Care Provider [phone] Encounter Details Date Type Department Care Team (Late st Contact Info) Description 05/04/2023 Clinisync Result Encounter [facility] External Department Unsolicited Katalina Colbert, NETTIE [address] [place] [address] Social History Tobacco Use Types Packs/Day Years Used Date Smoking Tobacco: Never Assessed Comments Unknown Sex and Gender Information Value [...] Visit [facility] [address] [place] [address] Sarah Khan MD [address] [place] [address] 11/13/2024 3:00 PM EDT Office Visit [facility] [address] [place] [address] Katalina Colbert NP [address] [place] [address] 11/22/2024 3:00 PM EDT Office Visit [facility] [address] [place] [address] Alexa Pulliam, CNM [address] [place] [address] documented as of this encounter Procedures Procedure Name Priority Date/Time Associated Diagnosis Comments MM TOMOSYNTHESIS SCREENING BI 05/04/2023 12:55 PM EST documented in this encounter Results * MM TOMOSYNTHESIS SCREENING BI (05/04/2023 12:55 PM EST) Anatomical Region Laterality Modality Other 05/04/2023 12:5 5 PM EST Narrative 05/04/2023 12:55 [place] [address] Mammography Report Signed Patient: KATALINA HUTCHNIS MR#: [id number] : 1965 Acct:[id number] Age/Sex: 58 / F ADM Date: 04/29/23 Loc: MAMMO Attending Dr: Katalina Colbert NP Ordering Physician: Katalina Colbert NP Results: Date of Service: 04/29/23 Follow Up: Procedure(s): MM tomosynthesis screening BI Accession Number(s): [id number] cc: Katalina Colbert NP Patient Name: KATALINA HUTCHINS MR#: [id number] : 1965 Exam Date: 04/29/2023 Ordering Doctor: TARIK Colbert CNP RADIOLOGY REPORT PROCEDURE: MM TOMOSYNTHESIS SCREENING BI COMPARISON: MG MAMM SCREEN 3D FRANCI CAD, 04/27/2022. MG MAMM SCREEN 3D FRANCI CAD, 11/28/2020. MG MAMM SCREEN FRANCI W CAD, 10/25/2019. MG MAMM FRANCI DIAG W CAD DIG, 03/15/2013. INDICATIONS: Screening Calculator Name NCI Breast Cancer Risk Assessment Tool 5 Year Breast Cancer Risk 1.50% Lifetime Breast Cancer Risk 9.70% Personal Breast Cancer No Personal Ovarian Cancer No Treatments None Family Cancers Grandmother-paternal with breast cancer at age 50; Mother with uterine cancer at age 26. LOCATION: [facility] BREAST COMPOSITION: Scattered areas fibroglandular density. FINDINGS: DIAGNOSTIC CATEGORY 2--BENIGN FINDING: RIGHT BREAST: No significant suspicious finding. No significant change has occurred. LEFT BREAST: No significant suspicious finding. Chronic, stable benign-appearing lymph node within posterior upper-outer quadrant. No significant change has occurred. RECOMMENDATIONS: ROUTINE MAMMOGRAM AND CLINICAL EVALUATION IN 12 MONTHS. PLEASE NOTE: A NORMAL MAMMOGRAM DOES NOT EXCLUDE THE POSSIBILITY OF BREAST CANCER. A CLINICALLY SUSPICIOUS PALPABLE LUMP SHOULD BE BIOPSIED. Dictated by: Matias Edwards M.D. on 05/04/2023 at 12:05 Approved by: Matias Edwards M.D. on 05/04/2023 at 12:55 Dictated By: Matias Edwards M.D. Signed By: 05/04/23 1256 DD/ 1255 TD/TT: Vp Sales: Procedure Note Radiology, Radiologist, MD - 05/04/2023 [place] [address] Mammography Report Signed Patient: KATALINA HUTCHINS MMR#: [id number] : 1965Acct:[id number] Age/Sex: 58 / FADM Date: 04/29/23 Loc: MAMMO Attending Dr: Katalina Colbert NP Ordering Physician: Katalina Colbert NPResults: Date of Service: 04/29/23Follow Up: Procedure(s): MM tomosynthesis screening BI Accession Number(s): [id number] cc: Katalina Colbert NP Patient Name: KATALINA HUTCHINS MR#: [id number] : 1965 Exam Date: 04/29/2023 Ordering Doctor: TARIK Colbert BRINE PLANT OPERATOR RADIOLOGY REPORT PROCEDURE: MM TOMOSYNTHESIS SCREENING BI COMPARISON: MG MAMM SCREEN 3D FRANCI CAD, 04/27/2022. MG MAMM SCREEN 3DBIL CAD, 11/28/2020. MG MAMM SCREEN FRANCI W CAD, 10/25/2019. MG MAMM FRANCI DIAG WCAD DIG, 03/15/2013. INDICATIONS: Screening Calculator Name NCI Breast Cancer Risk Assessment Tool 5 Year Breast Cancer Risk 1.50% Lifetime Breast Cancer Risk 9.70% Personal Breast Cancer No Personal Ovarian Cancer No Treatments None Family Cancers Grandmother-paternal with breast cancer at age 50; Mother with uterine cancer at age 26. LOCATION: [facility] BREAST COMPOSITION: Scattered areas fibroglandular density. FINDINGS: DIAGNOSTIC CATEGORY 2--BENIGN FINDING: RIGHT BREAST: No significant suspicious finding. No significant changehas occurred. LEFT BREAST: No significant suspicious finding. Chronic, stable benign-appearing lymph node within posterior upper-outer quadrant. No significant change has occurred. RECOMMENDATIONS: ROUTINE MAMMOGRAM AND CLINICAL EVALUATION IN 12 MONTHS. PLEASE NOTE: A NORMAL MAMMOGRAM DOES NOT EXCLUDE THE POSSIBILITY OFBREAST CANCER. A CLINICALLY SUSPICIOUS PALPABLE LUMP SHOULD BE BIOPSIED. Dictated by: Matias Edwards M.D. on 05/04/2023 at 12:05 Approved by: Matias Edwards M.D. on 05/04/2023 at 12:55 Dictated By: Matias Edwards M.D. Signed By:05/04/23 1256 DD/ 1255 TD/TT: Vp Sales: us Katalina Colbert NP [facility] Final Result documented in this encounter Visit Diagnoses Not on filedocumented in this encounter Care Teams Air Brush Decorator Relationship Specialty Start Date End Date Kervin Stevens MD [address] [place] [address] PCP - General Family Medicine 06/01/23 Katalina Colbert NP [address] [place] [address] Nurse Practitioner Family Medicine 03/06/23 documented as of this encounter
--- OUTSIDE RECORDS SUMMARY | 2024-11-02 12:49 | XMS_ITS | Encounter Summary ---
Author Organization [facility] Address [address] [place] [address] Care Team Providers Care School Coordinator Name Role Phone Katalina Colbert BALLET SOLOIST Unavailable [phone] Kervin Stevens MD Primary Care Provider [phone] Encounter Details Date Type Department Care Team (Late st Contact Info) Description 09/27/2023 Orders Only [facility] [address] [place] [address] Maninder Holt [address] [id number] Social History Tobacco Use Types Packs/Day Years [...] often do you attend chur ch or zoroastrian services? More than 4 times per year 06/02/2023 Do you belong to any clubs o r organizations such as zoroastrianism groups, unions, fraternal or athletic groups, or [...] medical care, and heating? Somewhat hard 06/02/2023 [facility] - [...] in a assisted (including now)? No 06/02/2023 Comments Unknown Sex [...] [facility] [address] [place] [address] Sarah Khan MD [address] [place] [address] 11/13/2024 3:00 PM EDT Office Visit [facility] [address] [place] [address] Katalina Colbert NP [address] [place] [address] 11/22/2024 3:00 PM EDT Office Visit [facility] [address] [place] [address] Alexa Pulliam, CNM [address] [place] [address] documented as of this encounter Procedures Procedure Name Priority Date/Time Associated Diagnosis Comments SCANNED LABS Routine 09/27/2023 9:47 AM EDT documented in this encounter Results * SCANNED LABS (09/27/2023 9:47 AM EDT) Maninder Holt DO LAB CHG PERFORMABLES Final Re sult documented in this encounter Visit Diagnoses Not on filedocumented in this encounter Care Teams School Coordinator Relationship Specialty Start Date End Date Kervin Stevens MD [address] [place] [address] PCP - General Family Medicine 06/01/23 Katalina Colbert NP [address] [place] [address] Nurse Practitioner Family Medicine 03/06/23 documented as of this encounter
[2024-11-02 14:20] LABS: Thyroid Stimulating Hormone 0.499 uIU/mL (0.358-3.740)
[2024-11-05 18:09] LABS: Thyroglobulin Antibody <1.0 IU/mL (0.0-0.9)
== END 2024-11-02 12:48 | disposition home or self-care (01) ==
LOC: LAB 12:47
PROVIDERS: PCP Nurse Practitioner; Visit Provider Radiology Radiation Oncology
DX: Z85.850 Personal history of malignant neoplasm of thyroid (principal)
CPT/HCPCS: 36415; 84436; 84443; 86800

== ENCOUNTER 2025-01-01 12:17 | Outpatient (OUT) | payer OTHER, SELFPAY ==
--- NOTE | 2025-01-01 12:51 | PC.NURSE ---
Nursing Note Cardiac Stress Test Reviewed: Medication, allergies and patient history reviewed. Stress Test: [x ] Patient tolerated stress test well. [ ] Patient unable to tolerate walking on treadmill. Switched to Lexiscan stress test. [ x] No chest pain noted per patient [ ] Chest pain that resolved prior to leaving stress lab. [ x] No dyspnea noted. [ ] Dyspnea that resolved prior to leaving stress lab. [ x] Patient left stress lab asymptomatic and hemodynamically stable. [ ] Patient taken to the Emergency Room due to non-resolving symptoms following stress test. [ ] Patient achieved target heart rate. [ ] Patient unable to achieve target heart rate. [ ] Aminophylline administered as reversal agent to Lexiscan (Regadenoson). [ ] Nitro administered. Nursing Comments:
[2025-01-01] MEDS: REGADENOSON 0.4 MG/5 ML SYRINGE IV (12:58)
--- NOTE | 2025-01-02 17:53 | PM.STRESS ---
Stress Test Stress Test Allergies Allergy/AdvReac Type Severity Reaction Status Date / Time latex Allergy Mild Rash Verified 10/30/24 13:44 Requesting physician: Katalina Colbert Procedure: Lexiscan nuclear stress test General Information: Reason for Stress Test: [Chest pain] Cardiac History and Risk Factors: [History of CAD, hypertension, and hyperlipidemia] Resting 12 - Lead Electrocardiogram: Resting twelve-lead EKG showed sinus rhythm, heart rate 71 bpm, nonspecific T changes Resting heart rate 71 bpm, resting blood pressure 114/69. Lexiscan 0.4 mg IV was injected and patient was monitored for few minutes. Peak heart rate 83 bpm which represents 50% of age-predicted maximum heart rate, peak blood pressure 166/74. Patient did not report any symptoms. EKG throughout the test did not show significant T or ST changes or arrhythmia Stress Test: Protocol: [Lexiscan] Exercise Capacity: [Not applicable] Blood Pressure Response: [No change as expected] Rhythm: [No arrhythmias] ST - Response: [No ST changes] Patient Response: [No symptoms] Interpretation: Negative Lexiscan EKG stress test for ischemia The nuclear myocardial perfusion images result is reported separately Liliam Andrews MD, FACC
== END 2025-01-01 12:18 | disposition home or self-care (01) ==
LOC: CARD 12:17
PROVIDERS: PCP Nurse Practitioner; Visit Provider Nurse Practitioner
DX: R07.9 Chest pain, unspecified (principal); G47.33 Obstructive sleep apnea (adult) (pediatric); I10 Essential (primary) hypertension; E11.65 Type 2 diabetes mellitus 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; Z79.4 Long term (current) use of insulin
CPT/HCPCS: 78452; 93017; A9500; J2785

== ENCOUNTER 2025-01-30 13:23 | Outpatient (OUT) | payer OTHER, SELFPAY ==
--- OUTSIDE RECORDS SUMMARY | 2025-01-14 15:30 | XMS_ITS | Encounter Summary ---
Author Organization [facility] Address [address] [place] [address] Care Team Providers Care Medical Support Assistant Name Role Phone Katalina Colbert MD Primary Care Provider [phone] Encounter Details Date Type Department Care Team (Late st Contact Info) Description 01/14/2025 3:30 PM EDT Office Visit [facility] Heart at [facility] [address] [place] [address] Emeterio Tuttle MD [address] [facility] [address] [facility] [place] [address] Other chest pain (Primary Dx); [...] from the original note were not included. [place] [facility] - [facility] Subjective Katalina Ernst is a 59 [...] 2024 in the emergency room at the [facility] because of chest pain. Her ECG did [...] in the morning., Disp: , Rfl: fexofenadine (Yoalnda) 180 mg tablet, Take 180 mg by [...] Basic metabolic panel; Future - Case Request Administrative Services Director: Coronary angiography, Right heart cath - CBC and differential; Future Cardiovascular stress test abnormal - metoprolol succinate XL (Toprol-XL) 25 mg 24 hr tablet; Take 1 tablet (25 mg) by mouth in the morning. Do not crush or chew. - Basic metabolic panel; Future - Case Request Administrative Services Director: Coronary angiography, Right heart cath - CBC and differential; Future Shortness of breath - Basic metabolic panel; Future - Case Request Administrative Services Director: Coronary angiography, Right heart cath - CBC [...] Description 02/22/2025 9:30 AM EDT Hospital Encounter [facility] Heart and Vascular Center Vascular Lab [address] [place] [address] [facility]io Tuttle MD [address] [facility] [address] [place] [address] Other chest pain; Cardiovascular stress test abnormal; Shortness of breath 02/22/2025 9:30 AM EDT - 02/22/2025 10:30 AM EDT Surgery [facility] Heart and Vascular Center Vascular Lab [address] [place] [address] Emeterio Tuttle MD [address] [place] [address] Coronary angiography Scheduled Orders Name Type Priority [...] breath documented in this encounter Care Teams Medical Support Assistant Relationship Specialty Start Date End Date Katalina Colbert MD [address] [place] [address] PCP - General Nurse Practitioner 01/14/25 documented as of this encounter
--- OUTSIDE RECORDS SUMMARY | 2025-01-22 15:30 | XMS_ITS | Encounter Summary ---
Author Organization [facility] Address [address] [place] [address] Care Team Providers Care Home Care Manager Name Role Phone Katalina Colbert ENGINEERING INSTRUCTOR Unavailable [phone] Kervin Stevens MD Primary Care Provider [phone] Reason for Visit * Reason Comments Follow-up Encounter Details Date Type Department Care Team (Late st Contact Info) Description 01/22/2025 3:30 PM EDT Office Visit [facility] [address] [place] [address] Alexa Pulliam CNM [address] [place] [address] Hot flashes (Primary Dx) Social History Tobacco Use Types Packs/Day Years Used Date Smoking Tobacco: Former Cigarettes Smokeless Tobacco: Never Comments:Last smoked: 5-10 y ears ago Alcohol [...] ways by your partner or ex-partner? No 12 / Within the last year, have y ou [...] How often do you attend chur or mormonism services? More than 4 times per year [...] medical care, and heating? Somewhat hard 08/13/2024 [facility] [place] of Occupat ional Health - Occupational Stress [...] money to buy more. Never true 08/14/19 Within the past 12 months, t he [...] place to sleep or slept in a group home (including now)? No 06/02/2023 Housing Stability Vital Sign Answer Emanuel e Recorded In the last 12 months, was t here a time when you were not able to pay the mortgage or rent on time? No 08/13/2024 In the past 12 months, how m any times have you moved where you were living? 0 08/13/2024 At any time in the past 12 m [facility], were you homeless or living in a group home (including now)? No 08/13/2024 Comments No Sex and Gender Information Value Date Recorded Sex Assigned at Female 06/10/2023 3:59 AM EST Legal Sex Female 7:29 PM EDT Gender Identity Female 06/10/2023 3:59 AM EST Sexual Orientation Straight 06/10/2023 3: 59 AM EST documented as of this encounter Last Filed Vital Signs Vital Sign Reading Time Taken Comments Blood Pressure 120/70 01/22/2025 3:25 PM EDT Pulse - - Temperature - - Respiratory Rate - - Oxygen Saturation - - Inhaled Oxygen Concentration - - Weight 126 kg (277 lb) 01/22/2025 3:25 PM EDT Height - - Body Mass Index 47.55 08/13/2024 2:12 PM EDT documented in this encounter Progress Notes * Alexa Pulliam CNM - 01/22/2025 3:30 PM EDT PROBLEM VISIT Katalina Ernst is 59 y.o. 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 Patient is postmenopausal. 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) Morbid obesity with body mass index (BMI) of 40.0 to 49.9 ([facility]-HCC) Multinodular goiter Non compliance w medication regimen Onychomycosis KARINE (obstructive sleep apnea) Papillary thyroid carcinoma (HCC) Paresthesia of left lower extremity Parotid mass Post-operative hypothyroidism Postmenopausal bleeding Sinusitis Type 2 diabetes mellitus 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 (HCC) Uncontrolled type 2 diabetes mellitus 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, with long-term current use of insulin (HCC) 06/09/2023 UTI symptoms Vitamin D deficiency Past Surgical History: Procedure Laterality Date CHOLECYSTECTOMY FINE NEEDLE ASPIRATE 03/10/2016 FNA left parotid IR FINE NEEDLE ASPIRATION THYROID 02/08/2020 OTHER SURGICAL HISTORY Cyst removed Armpit OTHER SURGICAL HISTORY multiple r/o boils ROTATOR CUFF REPAIR Right TOTAL KNEE ARTHROPLASTY Left 04/2015 DR. CABALLERO TOTAL THYROIDECTOMY 03/25/2020 at [facility]: papillary carcinoma 1/2 nodes positive in ant. compartment dissection Family History Problem Relation Name Age of Onset Heart disease Mother Kim Hypertension Mother Kim Diabetes Mother Kim Cancer Mother Kim Ovarian and colon cancer Heart attack Mother Kim Other (uterine problem) Mother Kim Thyroid disease Mother Kim Other (hernia repair) Mother Kim Cole Parkinson White syndrome Mother Kim Other (Hysterectomy) Mother Kim ovarian cancer COPD Mother Kim Atrial fibrillation Mother Kim Carpal tunnel syndrome Mother Kim both hands Asthma Mother Kim Allergy (severe) Mother Kim Sulfa drugs Diabetes Father Harpreet Heart attack Father Harpreet Alzheimer's disease Father Harpreet Colon cancer Father Harpreet Hypertension Father Harpreet Heart disease Father Harpreet Cancer Father Harpreet Coronary artery disease Father Harpreet Appendicitis Father Harpreet removal Atrial fibrillation Father Harpreet Sleep apnea Father Harpreet GREGORY disease Father Harpreet Gallbladder disease Father Harpreet removal Hernia Father Harpreet surgery Edema Father Harpreet Other (RBBB) Father Harpreet Supraventricular tachycardia Father Harpreet Obesity Father Harpreet Hypersomnolence Father Harpreet No Known Problems Sister No Known Problems Maternal Grandmother Heart attack Maternal Grandfather Cancer Paternal Grandmother Breast cancer Alzheimer's disease Paternal Grandfather [email or web address] Allergies: Allergies Allergen Reactions Wound Dressing Adhesive Rash Latex Other and Rash Medications: Current Outpatient Medications on File Prior to Visit Medication Sig Dispense Refill albuterol HFA 90 mcg/act inhaler Inhale 2 puffs every 4 (four) hours if needed for wheezing DULoxetine (Cymbalta) [address] capsule Take 1 capsule (60 mg) by mouth Daily 90 capsule 1 fexofenadine (Yolanda) 180 MG tablet Take 1 tablet (180 mg) by mouth Daily as needed (Allergies) 90tablet 1 fluticasone (Flonase) 50 MCG/ACT nasal spray Administer 2 sprays into each nostril Daily 48 g 1 hydroCHLOROthiazide (Microzide) 12.5 MG capsule Take 1 capsule (12.5 mg) by mouth Daily 90 capsule 1 ibuprofen 800 MG tablet Take 1 tablet (800 mg) by mouth every 12 (twelve) hours Take with food 180 tablet 1 insulin glargine (Lantus SoloStar) 100 UNIT/ML pen Inject 60 Units under the skin at bedtime 54 mL 1 insulin glargine-yfgn (Semglee-yfgn) 100 UNIT/ML pen Inject 60 Units under the skin at bedtime insulin lispro (HumaLOG) 100 UNIT/ML injection INJECT 15-20-25 UNITS ACCORDING TO MEAL SIZE PLUS ISS #3 (MAX DAILY DOSE OF 100 UNITS) 105 mL 0 levothyroxine (Synthroid, Levoxyl) 200 MCG tablet Take 1 tablet by mouth in the morning. Take before meals. losartan (Cozaar) 100 MG tablet Take 1 tablet (100 mg) by mouth Daily 90 tablet 1 metFORMIN (Glucophage) 1000 MG tablet Take 1 tablet (1,000 mg) by mouth in the morning and 1 tablet(1,000 mg) before bedtime. 180 tablet 1 norethindrone-ethinyl estradiol (Femhrt) 0.5-2.5 MG-MCG tablet Take 1 tablet by mouth Daily 30 tablet 2 ReliOn Pen [place] 31G X 6 MM misc Inject 1 each under the skin in the morning and 1 each at noon and 1 each in the evening and 1 each before bedtime. simvastatin (Zocor) 5 MG tablet Take 1 tablet (5 mg) by mouth at bedtime 90 tablet 1 SITagliptin (Januvia) 100 MG tablet Take 1 tablet by mouth once daily 90 tablet 1 tiZANidine (Zanaflex) 4 MG tablet Take 1 tablet (4 mg) by mouth as needed at bedtime for muscle spasms 90 tablet 1 No current facility-administered medications on file prior to visit. Vitals: 01/22/25 1525 BP: 120/70 HPI: ROS: Review of Systems Physical exam: Physical Exam Cardiovascular: Rate and Rhythm: Normal rate and regular rhythm. Pulses: Normal pulses. Heart sounds: Normal heart sounds. Pulmonary: Effort: Pulmonary effort is normal. Breath sounds: Normal breath sounds. Abdominal: General: Bowel sounds are normal. Palpations: Abdomen is soft. Tenderness: There is no abdominal tenderness. Assessment and Plan: There are no diagnoses linked to this encounter. Patient is doing well on HRT and states that she is no longer having hot flashes and the pills are helping a lot. She would like to continue them. She also states she has heart blockage and going to the laborer shaft sinking in a week or so. Patient met a man online from [place] and she is maybe going to move to [place] with him. I did advise her to make her health appts first and land appraiser appt is a priority before she would move. PVU. No follow-ups on file. There are no Patient Instructions on file for this visit. Darlin Covington MA,01/22/2025 3:36 PM documented in this encounter Plan of Treatment Upcoming Encounters Date Type Department Care Team (Late st Contact Info) Description 02/05/2025 11:30 AM EDT Office Visit [facility] [address] [place] [address] Katalina Colbert NP [address] [place] [address] 05/15/2025 1:00 PM EST Office Visit [facility] [address] [facility] [place] [address] Alexa Pulliam CNM [address] [place], [place] [id number] documented as of this encounter Goals Goal Patient Goal Type Associated Problems Recent Progress Patient-Stated? Author Help patient manage antidepressant medication Care Plan Patient on antidepressant monitoring plan No Argenis Michaels Baseline PHQ-9 Care Plan Baseline PHQ-9 Argenis Mcmanus documented as of this encounter Visit Diagnoses Diagnosis Hot flashes- Primary documented in this encounter Additional Health Concerns Active Problems Noted Date Diagnosed Date Patient on antidepressant monitoring plan 2024 Baseline PHQ-9 01/08/2025 documented as of this encounter Care Teams Home Care Manager Relationship Specialty Start Date End Date Kervin Stevens MD [address] [place] [id number] PCP - General Family Medicine 06/01/23 Katalina Colbert NP [address] [place] [id number] Nurse Practitioner Family Medicine 03/06/23 documented as of this encounter
--- OUTSIDE RECORDS SUMMARY | 2025-01-30 13:25 | XMS_ITS | Encounter Summary ---
Author Organization [facility] Address [address] [place] [address] Care Team Providers Care Tile Power Shear Operator Name Role Phone Katalina Colbert SAND BOBBER Unavailable [phone] Kervin Stevens MD Primary Care Provider [phone] Encounter Details Date Type Department Care Team (Late st Contact Info) Description 01/10/2025 Orders Only [facility] [address] [place] [address] Katalina Colbert, SAND BOBBER [address] [place] [phone] Contusion of right knee, initial encounter (Primary Dx) Social History Tobacco Use Types [...] How often do you attend chur or church services? More than 4 times per year 08/13/2024 Do you belong to any clubs o r organizations such as voodoo groups, unions, fraternal or athletic groups, or [...] medical care, and heating? Somewhat hard 08/13/2024 [facility] of Occupat ional Health - [...] any time in the past 12 m [facility], were you homeless or [...] 11:30 AM EDT Office Visit [facility] [address] [place] [address] Katalina Colbert NP [address] [place] [address] 05/15/2025 1:00 PM EST Office Visit [facility] [address] [place] [address] Heraclio Alexa L, CNM [address] [place], [place] [id number] Scheduled Orders Name Type Priority Associated Diagnoses Orde r Schedule XR knee 4+ views left Imaging Routine Contusion of right knee, initial encounter Expected: 01/10/2025, Expires: 01/10/2026 documented as of this encounter Goals Goal Patient Goal Type Associated Problems Recent Progress Patient-Stated? Author Help patient manage antidepressant medication Care Plan Patient on antidepressant monitoring plan No [place], Argenis Baseline PHQ-9 Care Plan Baseline PHQ-9 No X[place], Argenis documented as of this encounter Visit Diagnoses Diagnosis Contusion of right knee, initial encounter- Primary documented in this encounter Additional Health Concerns Active Problems Noted Date Diagnosed Date Patient on antidepressant monitoring plan 2024 Baseline PHQ-9 01/08/2025 documented as of this encounter Care Teams Tile Power Shear Operator Relationship Specialty Start Date End Date Kervin Stevens MD [address] [place] [address] PCP - General Family Medicine 06/01/23 Katalina Colbert NP [address] [place] [address] Nurse Practitioner Family Medicine 03/06/23 documented as of this encounter
--- OUTSIDE RECORDS SUMMARY | 2025-01-30 13:25 | XMS_ITS | Clinical Summary ---
Author Organization [facility] Address [address] [place] [address] Care Team Providers Care Automatic Vulcanizing Lead Operator Name Role Phone Katalina Colbert DIGITAL ARCHIVIST Unavailable [phone] Kervin Stevens MD Primary Care Provider Allergies Active Allergy Reactions Criticality Noted Date Comments Latex Other,Rash Low 08/29/2018 Wound Dressing Adhesive Rash Medium 05/11/2012 Medications levothyroxine (Synthroid, Levoxyl) 200 MCG tablet Take 1 tablet by mouth in the morning. Take before meals. 023 Active insulin glargine-yfgn (Semglee-yfgn) 100 UNIT/ML pen Inject 60 Units under the skin at bedtime 024 Active albuterol HFA 90 mcg/act inhaler Inhale 2 puffs every 4 (four) hours if needed for wheezing Active insulin lispro (HumaLOG) 100 UNIT/ML injectionIndicati ons:Type 2 diabetes mellitus 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, unspecified whether retirement insulin use (HCC) INJECT 15-20-25 UNITS ACCORDING TO MEAL SIZE PLUS ISS #3 (MAX DAILY DOSE OF 100 UNITS) 105 mL 024 Active fluticasone (Flonase) 50 MCG/ACT nasal sprayIndications: Allergic rhinitis, unspecified seasonality, unspecified trigger Administer 2 sprays into each nostril Daily 48 g 1 024 Active ReliOn Pen Midway 31G X 6 MM misc Inject 1 each under the skin in the morning and 1 each at noon and 1 each in the evening and 1 each before bedtime. 025 Active insulin glargine (Lantus SoloStar) 100 UNIT/ML penIndications:Ty pe 2 diabetes mellitus 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, unspecified whether retirement insulin use (HCC) Inject 60 Units under the skin at bedtime 54 mL 2024 Active norethindrone-eth inyl estradiol (Femhrt) 0.5-2.5 MG-MCG tabletIndications :Hot flashes Take 1 tablet by mouth Daily 30 tablet 2 2024 Active hydroCHLOROthiazi de (Microzide) 12.5 MG capsuleIndication s:Essential hypertension,Bila teral lower extremity edema Take 1 capsule (12.5 mg) by mouth Daily 90 capsule 2024 Active SITagliptin (Januvia) 100 MG tabletIndications :Type 2 diabetes mellitus 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, unspecified whether retirement insulin use (HCC) Take 1 tablet by mouth once daily 90 tablet Active losartan (Cozaar) 100 MG tabletIndications :Essential hypertension Take 1 tablet (100 mg) by mouth Daily 90 tablet 2024 Active metFORMIN (Glucophage) 1000 MG tabletIndications :Uncontrolled type 2 diabetes mellitus 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, with long-term current use of insulin ([facility]) Take 1 tablet (1,000 mg) by mouth in the morning and 1 tablet (1,000 mg) before bedtime. 180 tablet 2024 Active tiZANidine (Zanaflex) 4 MG tabletIndications :Chronic pain syndrome Take 1 tablet (4 mg) by mouth as needed at bedtime for muscle spasms 90 tablet 2024 Active DULoxetine (Cymbalta) [address] capsuleIndication s:Anxiety and depression Take 1 capsule (60 mg) by mouth Daily 90 capsule 2024 Active simvastatin (Zocor) 5 MG tabletIndications :Mixed hyperlipidemia Take 1 tablet (5 mg) by mouth at bedtime 90 tablet 2024 Active ibuprofen 800 MG tabletIndications :Other chronic pain Take 1 tablet (800 mg) by mouth every 12 (twelve) hours Take with food 180 tablet 1 025 2024 Active fexofenadine (Yolanda) 180 MG tabletIndications :Allergic rhinitis, unspecified seasonality, unspecified trigger Take 1 tablet (180 mg) by mouth Daily as needed (Allergies) 90 tablet 1 025 2024 Active norethindrone-eth inyl estradiol (Femhrt) 0.5-2.5 MG-MCG tabletIndications :Hot flashes Take 1 tablet by mouth Daily 90 tablet 1 025 2025 Active fexofenadine (Yolanda) 180 MG tabletIndications :Allergic rhinitis, unspecified seasonality, unspecified trigger Take 1 tablet (180 mg) by mouth Daily as needed (Allergies) 90 tablet 1 024 2024 Discontinued(R eorder) DULoxetine (Cymbalta) [address] capsuleIndication s:Anxiety and depression Take 1 capsule (60 mg) by mouth Daily 90 capsule 1 024 2024 Discontinued(R eorder) ibuprofen 800 MG tabletIndications :Other chronic pain Take 1 tablet (800 mg) by mouth every 12 (twelve) hours Take with food 180 tablet 1 024 2024 Discontinued(R eorder) tiZANidine (Zanaflex) 4 MG tabletIndications :Chronic pain syndrome Take 1 tablet (4 mg) by mouth as needed at bedtime for muscle spasms 90 tablet 1 025 2024 Discontinued(R eorder) hydroCHLOROthiazi de (Microzide) 12.5 MG capsuleIndication s:Essential hypertension,Bila teral lower extremity edema Take 1 capsule (12.5 mg) by mouth Daily 30 capsule 1 025 2024 Discontinued(R eorder) cholecalciferol (Vitamin D-3) 25 MCG (1000 UT) capsuleIndication s:Vitamin D deficiency, unspecified Take 1 capsule (25 mcg) by mouth Daily 90 capsule 1 025 2024 simvastatin (Zocor) 5 MG tabletIndications :Mixed hyperlipidemia Take 1 tablet (5 mg) by mouth at bedtime 90 tablet 1 025 2024 Discontinued(R eorder) SITagliptin (Januvia) 100 MG tabletIndications :Type 2 diabetes mellitus 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, unspecified whether retirement insulin use (HCC) Take 1 tablet by mouth once daily 90 tablet 1 025 2024 Discontinued losartan (Cozaar) 100 MG tabletIndications :Essential hypertension Take 1 tablet (100 mg) by mouth Daily 90 tablet 1 025 2024 Discontinued(R eorder) metFORMIN (Glucophage) 1000 MG tabletIndications :Uncontrolled type 2 diabetes mellitus 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, with long-term current use of insulin (HCC) Take 1 tablet (1,000 mg) by mouth in the morning and 1 tablet (1,000 mg) before bedtime. 180 tablet 025 2024 Discontinued(R eorder) Active Problems Problem Noted Date Diagnosed Date Abnormal stress test 01/13/2025 Contusion of right knee 01/10/2025 Chest pain of unknown etiology 11/13/2024 Assessment & Plan (11/13/2024 3:53 PM EDT): Risk factors; uncontrolled DM, HTN, family hx CAD, [place] Would recommend ordering stress test CANNOT walk on treadmill d/t arthritis in knees Will order lexiscan Pap smear for cervical cancer screening 08/14/19 Assessment & Plan (08/13/2024 3:00 PM EDT): Has not had PAP smear in number of years, last time this was attempted in our office, pt unable to tolerate d/t discomfort She did have a pelvic US as well, on 09/22/19, it was recommended that she have tissue biopsy. She was referred to ob/gyn at that time, she did not attend the appt either She is no having any pelvic pain and is not having any abnormal uterine bleeding either. I have discussed this in the past with pt, and the need to have this completed, she is willing to get this completed, and I will refer to ASSESSMENT SPECIALIST for evaluation Encounter for screening mamm ogram [...] 59.9 in adult 12/12/2023 Assessment & Plan (11/13/2024 7:08 AM EDT): Discussed with patient their BMI [...] options for weight loss. Assessment & Plan (08/13/2024 6:50 AM EDT): [...] (obstructive sleep apnea) 08/03/2023 Assessment & Plan (11/13/2024 7:08 AM EDT): You have a diagnosis of obstructive sleep apnea. It is recommended that you wear your PAP device any time while in bed sleeping. Not using the PAP device can increase your risk of elevated/uncontrolled high blood pressure, atrial fibrillation, heart attack, stroke, or sudden . Compliance with PAP: is not Assessment & Plan (08/13/2024 2:46 PM EDT): [...] compliant use can increase risk for stroke, [place], HTN, sudden Assessment & Plan (02/08/2024 2:40 [...] stable Essential hypertension 06/09/2023 Assessment & Plan (11/13/2024 7:08 AM EDT): Please check blood pressure daily and record DASH diet Limit caffeine Take medication as directed Contact office if chest pain, pressure, dizziness, shortness of breath, swelling legs Recommend slow position changes Current meds: hydrochlorothiazide, losartan Assessment & Plan (08/13/2024 6:49 AM EDT): [...] use of insulin 06/09/2023 Assessment & Plan (11/13/2024 7:08 AM EDT): Check blood sugars daily, notify [...] is 9.5% on 07/31 Assessment & Plan (08/13/2024 6:54 AM EDT): [...] Encounters Date Type Department Care Team Description 01/29/2025 Travel 01/22/2025 3:30 PM EDT Office Visit [facility] [address] [place] [address] Alexa Pulliam CNM Hot flashes (Primary Dx) 01/22/2025 Bamboo flowsheet [facility] [address] [place] [address] Alexa Pulliam CNM 01/16/2025 Results Follow-Up [facility] [address] [place] [phone] NM GAMALIEL PERF SPECT REST STR 01/13/2025 [facility] [address] [place] [address] Katalina Colbert NP Abnormal stress test (Primary Dx) 01/11/2025 Clinisync Result Encounter [facility] External Department Unsolicited Katalina Colbert NP 01/10/2025 Orders Only [facility] [address] [place] [address] Katalina Colbert NP Contusion of right knee, initial encounter (Primary Dx) 01/09/2025 Refill 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 [address] [place] [phone] Katalina Colbert NP Essential hypertension ; Bilateral lower extremity edema; Uncontrolled type 2 diabetes mellitus 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, with long-term current use of insulin (HCC); Chronic pain syndrome; Anxiety and depression 01/03/2025 Travel 01/02/2025 Orders Only [facility] [address] [place] [address] Katalina Colbert, NETTIE 12/31/2024 Telephone [facility] [address] [place] [address] Katalina Colbert, NETTIE 12/21/2024 Refill [facility] [address] [place] [address] Katalina Colbert, NETTIE Uncontrolled type 2 diabetes mellitus 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, with long-term current use of insulin ([facility]) 12/18/2024 Results Follow-Up [facility] [address] [facility] [place] [address] Darlin Reynolds MA THINPREP IMAGING PAP AND HPV DNA REFLEX HPV 16,18 12/12/2024 Telephone [facility] [address] [place] [phone] Katalina Colbert NP 12/11/2024 2:30 PM EDT Office Visit [facility] [address] [facility] [place] [address] Alexa Pulliam CNM Hot flashes (Primary Dx); Normal gynecologic examination; Screening for cervical cancer 12/04/2024 Refill 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 ([facility]) 11/13/2024 3:00 PM EDT [facility] [address] [place] [phone] Katalina Colbert, NETTIE Chest pain of unknown etiology (Primary Dx); Essential hypertension ; KARINE (obstructive sleep apnea); Class 3 severe obesity due to excess calories with serious comorbidity and body mass index (BMI) of 50.0 to 59.9 in adult ([facility]); Uncontrolled type 2 diabetes mellitus 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, with long-term current use of insulin ([facility]) 11/13/2024 Bamboo flowsheet [facility] [address] [place] [phone] Katalina Colbert NP 11/05/2024 [facility] [address] [place] [phone] Katalina Colbert, NETTIE Hidradenitis suppurativa of multiple sites (Primary Dx) 11/05/2024 Refill [facility] [address] [place] [phone] Katalina Colbert, NETTIE Mixed hyperlipidemia 11/03/2024 Refill [facility] [address] [place] [phone] Katalina Colbert, DIGITAL ARCHIVIST Mixed hyperlipidemia 11/02/2024 Clinisync Result Encounter [facility] External Department Unsolicited Katalina Colbert NP 10/30/2024 Orders Only [facility] [address] [place] [phone] Katalina Colbert, NETTIE from Last 3 Months Immunizations Immunization Administration Dates Next Due Hep B, adult 08/11/2001,02/17/2001,03/09/2000 Influenza, High Dose Seasona l, Preservative Free 03/25/2020,04/05/2019,03/22/2018 Influenza, Recombinant, inje ctable, preservative free 02/24/2024 Influenza, injectable, quadr ivalent, preservative free 03/25/2020,03/22/2018 Influenza, seasonal, injectable 03/19/2019,03/04,03/23/2013 Novel [id number], preservative-free 04/15 Pneumococcal Conjugate PCV 20 02/24/2024 [...] Tobacco: Never Tobacco Cessation:Counseling Given: Not Answered Comments:Last smoked: [...] How often do you attend chur or alevism services? More than 4 times per year 08/13/2024 Do you belong to any clubs o r organizations such as christianity groups, unions, fraternal or athletic groups, or [...] medical care, and heating? Somewhat hard 08/13/2024 [facility] - Occupational [...] place to sleep or slept in a long-term (including now)? No 06/02/2023 Housing Stability Vital Sign Answer Emanuel e Recorded In the last 12 months, was t here a time when you were not able to pay the mortgage or rent on time? No 08/13/2024 In the past 12 months, how m any times have you moved where you were living? 0 08/13/2024 At any time in the past 12 m [facility], were you homeless or living in a long-term (including now)? No 08/13/2024 Comments No Sex and Gender Information Value Date Recorded Sex Assigned at Female 06/10/2023 3:59 AM EST Legal Sex Female 7:29 PM EDT Gender Identity Female 06/10/2023 3:59 AM EST Sexual Orientation Straight 06/10/2023 3: 59 AM EST Last Filed Vital Signs Vital Sign Reading Time Taken Comments Blood Pressure 120/70 01/22/2025 3:25 PM EDT Pulse 90 11/13/2024 3:15 PM EDT Temperature 36.9 C (98.5 F) 11/13/2024 3:15 PM EDT Respiratory Rate 22 11/13/2024 3:15 PM EDT Oxygen Saturation 99% 11/13/2024 3:15 PM EDT Inhaled Oxygen Concentration - - Weight 126 kg (277 lb) 01/22/2025 3:25 PM EDT Height 162.6 cm (5' 4 ) 08/13/2024 2:12 PM EDT Body Mass Index 47.55 08/13/2024 2:12 PM EDT Plan of Treatment Upcoming Encounters Date Type Department Care Team (Late st Contact Info) Description 02/05/2025 11:30 AM EDT Office Visit [facility] [address] [place] [address] Katalina Colbert NP [address] [place] [address] 05/15/2025 1:00 PM EST [facility] [address] [place] [address] Alexa Pulliam CNM [address] [place], [place] [phone] Health Maintenance Due Date Last Done Comments CT Colonography 1967 FIT-DNA 1967 FIT 1967 FOBT 1967 Sigmoidoscopy 1967 HPV/Cotest 1997 Diabetes: Hemoglobin A1C 10/10/2024 025, 03/08/2024, 11/07/2023, Additional history exists Diabetes: Urine Protein Screening 12/06/2024 024, 10/12/2022 Influenza Vaccine (#1) 2025 4, 03/25/2020, 03/25/2020, Additional history exists Mammogram 06/12/2025 06/12/2024, 04/07, 05/04/2023 Diabetes: Retinopathy Screening 05/10/2026 4, 02/28/2023 Cervical Cancer Screening 06/09/2026 Pap Smear 06/09/2026 06/09/2023 (Patient Refused) Colonoscopy 09/26/2028 09/27/2023, 09/27/2023 Colorectal Cancer Screening 09/26/2028 Goals Goal Patient Goal Type Associated Problems Recent Progress Patient-Stated? Author Help patient manage antidepressant medication Care Plan Patient on antidepressant monitoring plan No Argneis Michaels Baseline PHQ-9 Care Plan Baseline PHQ-9 No Argenis Michaels Procedures Procedure Name Priority Date/Time Associated Diagnosis Comments NM GAMALIEL PERF SPECT REST STR 01/11/2025 5:43 PM EDT STRESS TEST LEXISCAN Routine 01/02/2025 6:09 PM EDT THINPREP IMAGING PAP AND HPV DNA REFLEX HPV 16,18 Routine 12/11/2024 4:30 PM EDT Screening for cervical cancer BOX TEST Routine 11/02/2024 1:05 PM EDT THYROGLOBULIN ANTIBODY Routine 1:05 PM EDT ALL THYROID STIM HORMONE Routine 11/02/2024 1:05 PM EDT ALL THYROXINE (T4) Routine 11/02/2024 1: 05 PM EDT [facility] CMP (CMP) (FOR REMOTE [facility] USE) Routine 11/02/2024 1:05 PM EDT ALL CBC WITH AUTO DIFF Routine 1:05 PM EDT [facility] UA (CLEAN/CATCH) ACCOUNTANCY PROFESSOR/MICRO IF IND. Routine 11/02/2024 12:48 PM EDT [facility] MICROALB CREAT RATIO RANDOM Routine 11/02/2024 12:48 PM EDT XR CHEST 1 VIEW Routine 10/30/2024 2:36 PM EDT POCT GLYCOSYLATED HEMOGLOBIN (HGB A1C) Routine 07/13/2024 10:48 AM EST Type 2 diabetes mellitus 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, with long-term current use of insulin (HCC) MM TOMOSYNTHESIS SCREENING BI 06/12/2024 4:43 PM EST from Last 3 Months or Most Recently Relevant to Health Maintenance Results * NM GAMALIEL PERF SPECT REST STR (01/11/2025 5:43 PM EDT) Anatomical Region Laterality Modality Other 01/11/2025 5:4 3 PM EDT Narrative 01/11/2025 5:44 PM EDT The [address] [address] Nuclear Medicine Report Signed Patient: KATALINA HUTCHINS MR#: [id number] : 1965 Acct:[id number] Age/Sex: 59 / F ADM Date: 01/01/25 Loc: CARD Attending Dr: Katalina Colbert NP Ordering Physician: Katalina Colbert NP Date of Service: 01/01/25 Procedure(s): NM gamaliel perf SPECT rest str Accession Number(s): [id number] cc: Katalina Colbert NP Patient Name: KATALINA HUTCHINS MR#: [id number] : 1965 Exam Date: 01/01/2025 Ordering Doctor: TARIK COLBERT CNP RADIOLOGY REPORT PROCEDURE: NM GAMALIEL PERF SPECT REST STR COMPARISON: None. INDICATIONS: CHEST PAIN, HYPERTENSION, FAMILY HISTORY TECHNIQUE: Exam Description: Stress/Rest two day protocol gated SPECT Rest Imagin.7 mCi Tc-99m Cardiolite IV on 01/09/2025 Stress Imaging 25.8 mCi Tc-99m Cardiolite IV on 01/09/2025 Exercise Protocol: 0.4 mg Lexiscan given IV Heart Rate (bpm): Rest: 71 Max: 83 PMHR: 50 Blood Pressure: Rest: 114/69 Max: 166/74 Symptoms: Rest and peak stress ECG findings were pending and the EKG portion of the study was pending per attending physician [facility] . For more details please see separate cardiac stress test report. FINDINGS: QUALITY OF STUDY: Fair PERFUSION DEFECT: LOCATION: Inferior extending to inferolateral and inferoseptal regions SIZE: Medium SEVERITY: Moderate TYPE: Reversible WALL MOTION: Normal LV SIZE: 123 mL. TID / TCD: 1.0 LVEF: Calculated EF 55%. SUMMARY: Abnormal myocardial perfusion imaging study CONCLUSION: Abnormal myocardial perfusion nuclear stress test showing evidence of inferior ischemia extending to inferolateral and inferoseptal regions Normal left ventricular systolic function, ejection fraction 55% No transient ischemic dilatation,TID 1.0 EKG portion of stress test is reported separately Dictated by: Liliam Andrews MD on 01/11/2025 at 17:36 Approved by: Liliam Andrews MD on 01/11/2025 at 17:43 Dictated By: Liliam Andrews M.D. Signed By: 01/11/25 1744 DD/ 42 TD/TT: Facilities Engineering Manager: Procedure Note Radiology, Radiologist, - 01/11/2025 The [place] [id number] Nuclear Medicine Report Signed Patient: KATALINA HUTCHINS MMR#: [id number] : 1965Acct:[id number] Age/Sex: 59 / FADM Date: 01/01/25 Loc: CARD Attending Dr: Katalina Colbert NP Ordering Physician: Katalina Colbert NP Date of Service: 01/01/25 Procedure(s): NM gamaliel perf SPECT rest str Accession Number(s): [id number] cc: Katalina Colbert NP Patient Name: KATALINA HUTCHINS MR#: [id number] : 1965 Exam Date: 01/01/2025 Ordering Doctor: TARIK COLBERT CNP RADIOLOGY REPORT PROCEDURE: NM GAMALIEL PERF SPECT REST STR COMPARISON: None. INDICATIONS: CHEST PAIN, HYPERTENSION, FAMILY HISTORY TECHNIQUE: Exam Description: Stress/Rest two day protocol gated SPECT Rest Imagin.7 mCi Tc-99m Cardiolite IV on 01/09/2025 Stress Imaging 25.8 mCi Tc-99m Cardiolite IV on 01/09/2025 Exercise Protocol: 0.4 mg Lexiscan given IV Heart Rate (bpm): Rest: 71 Max: 83 PMHR: 50 Blood Pressure: Rest: 114/69 Max: 166/74 Symptoms: Rest and peak stress ECG findings were pending and the EKG portion of the study was pending per attending physician [facility] . For more details pleasesee separate cardiac stress test report. FINDINGS: QUALITY OF STUDY: Fair PERFUSION DEFECT: LOCATION: Inferior extending to inferolateral and inferoseptalregions SIZE: Medium SEVERITY: Moderate TYPE: Reversible WALL MOTION: Normal LV SIZE: 123 mL. TID / TCD: 1.0 LVEF: Calculated EF 55%. SUMMARY: Abnormal myocardial perfusion imaging study CONCLUSION: Abnormal myocardial perfusion nuclear stress test showing evidence ofinferior ischemia extending to inferolateral and inferoseptal regions Normal left ventricular systolic function, ejection fraction 55% No transient ischemic dilatation,TID 1.0 EKG portion of stress test is reported separately Dictated by: Liliam Andrews MD on 01/11/2025 at 17:36 Approved by: Liliam Andrews MD on 01/11/2025 at 17:43 Dictated By: Liliam Andrews M.D. Signed By:01/11/25 1744 DD/ 174 TD/TT: Facilities Engineering Manager: Katalina Colbert NP [facility] Final Result * STRESS TEST LEXISCAN (01/02/2025 6:09 PM EDT) Anatomical Region Laterality Modality Heart Other Katalina Colbert NP CV STRESS PROCEDURES Final Resu lt * THINPREP IMAGING PAP AND HPV DNA REFLEX HPV 16,18 (12/11/2024 4:30 PM EDT) CLINICAL INFORMATION [facility] Comment:None given LMP [facility] Comment:NONE GIVEN PREV. PAP [facility] Comment:NONE GIVEN PREV. BX [facility] Comment:NONE GIVEN SOURCE [facility] Comment:None given STATEMENT OF ADEQUACY [facility] Comment: Satisfactory for evaluation. Endocervical/transformation zone component present. INTERPRETATION/RESU LT [facility] Comment: Cytology Results: Negative for intraepithelial lesion or malignancy. COMMENT [facility] Comment: This Pap test has been evaluated with computer assisted technology. CABIN CREW [facility] Comment: EMP, CT(ASCP) CT screening location: [facility] [place] [address]. CLIA: [id number] REVIEW CABIN CREW [facility] Comment: Reference Range: ZL, CT(ASCP) CT screening location: [facility] [place] [address]. CLIA: [id number] (ALWAYS MESSAGE) [facility] Comment: EXPLANATORY NOTE: The Pap is a screening test for cervical cancer. It is not a diagnostic test and is subject to false negative and false positive results. It is most reliable when a satisfactory sample, regularly obtained, is submitted with relevant clinical findings and history, and when the Pap result is evaluated along with historic and current clinical information. HPV DNA, HIGH RISK, CERVICAL Not Detected NOT DETECTED [facility] Comment: Not Detected High Risk HPV types (16,18,31,33,35,39,45,51,52, 56,58,59,66,68) were not detected. Other HPV types which cause anogenital lesions may be present. The significance of the other types of HPV in malignant processes has not been established. Methodology: Real Time PCR Swab Cervical swab / Unknown 12/11/2024 4:30 PM EDT 12/12/2024 2:35 AM EDT Narrative Resulting Agency Comment Performing Organization Information Site ID: [id number] Name: [facility] [place] Address: [address] [place] [address] Dr [place], [place] Director: Shaka Simpson M.D.,PhD Site ID: [id number] Name: [employer] [facility] Address: [address] [place] [address], [address] [place] [id number] Director: Nav Martinez MD Alexa Pulliam CN LAB CYTOLOGY ORDERABLES Melva l Result Performing Organization Address City/[facility]/ZIP Co de Phone Number [facility] * BOX TEST (11/02/2024 1:05 PM EDT) BOX TEST SENT OUT THYROGLOBULIN [facility] [address] [facility] [address] ADDED 11/07/24 [facility] BOX TEST RESULT 11/20/24 [facility] 11/02/2024 1:05 PM EDT 11/07/2024 8:58 AM EDT Narrative [facility] - 11/20/2024 9:00 AM EDT THYROGLOBULIN BY LCMS ADDED ON us Generic External Data Provider LAB BLOOD ORDERAB LES Final Result Performing Organization Address City/[facility]/ZIP Co de Phone Number [facility] * THYROGLOBULIN ANTIBODY (11/02/2024 1:05 PM EDT) THYROGLOBULIN ANTIBODY <1.0 0.0 - 0.9 IU/mL [facility] Comment: Thyroglobulin Antibody measured by [place] [employer] Methodology It should be noted that the presence of thyroglobulin antibodies may not be pathogenic nor diagnostic, especially at very low levels. The assay railroad firer has found that four percent of individuals without evidence of thyroid disease or autoimmunity will have positive TgAb levels up to 4 IU/mL. Performed at: [address] [id number] Site Administrator: Hakeem Gibson PhD, Phone: [phone] 11/02/2024 1:05 PM EDT 11/02/2024 1:07 PM EDT Narrative CLINISYNC - 11/05/2024 6:09 PM EDT us Generic External Data Provider LAB BLOOD ORDERAB LES Final Result CLINISYNC TB * (ABNORMAL) [facility] CMP (CMP) (FOR REMOTE [facility] USE) (11/02/2024 1:05 PM EDT) SODIUM 136 136 - 145 mmol/L TBH POTASSIUM 4.5 3.5 - 5.1 mmol/L TBH CHLORIDE 97(L) 98 - 107 mmol/L TBH CARBON DIOXIDE 29.8 21.0 - 32.0 mmol/L TBH ANION GAP 13.7 TBH GLUCOSE 253(H) 74 - 106 mg/dL TBH BLOOD UREA NITROGEN 16.0 7.0 - 18.0 mg/dL TBH CREATININE 0.93 0.55 - 1.02 mg/dL TBH TBH EGFR-AF [place] >60 >=60 mL/min/1. 73m 2 TBH TBH EGFR-NON AF [place] >60 >=60 mL/min/1. 73m 2 TBH BUN CREATININE RATIO 17.2 TBH CALCIUM 10.1 8.5 - 10.1 mg/dL TBH BILIRUBIN TOTAL 0.6 0.2 - 1.0 mg/dL TBH ASPARTATE AMINO TRANSFERASE 24 15 - 37 U/L TBH ALANINE AMINOTRANSFERASE 28 14 - 59 U/L TBH ALKALINE PHOSPHATASE 42(L) 46 - 116 U/L TBH TOTAL PROTEIN 7.6 6.4 - 8.2 g/dL TBH ALBUMIN LEVEL 3.1(L) 3.4 - 5.0 g/dL TBH GLOBULIN 4.5 g/dL TBH ALBUMIN GLOBULIN RATIO 0.7 TBH 11/02/2024 1:05 PM EDT 11/02/2024 1:07 PM EDT Narrative CLINISYNC - 11/02/2024 2:19 PM EDT us Katalina Aichholz DIGITAL ARCHIVIST CLINISYNC Final Result CLINISYNC TB * ALL THYROXINE (T4) (11/02/2024 1:05 PM EDT) T4 THYROXINE 13.00 4.80 - 13.90 ug/dL TBH 11/02/2024 1:05 PM EDT 11/02/2024 1:07 PM EDT Narrative CLINISYNC - 11/02/2024 2:20 PM EDT Generic External Data Provider CLINISYNC F inal Result Performing Organization Address City/[facility]/ZIP Co de Phone Number CLINISYMO TB * ALL THYROID STIM HORMONE (11/02/2024 1:05 PM EDT) THYROID STIMULATING HORMONE 0.499 0.358 - 3.740 uIU/mL TBH 11/02/2024 1:05 PM EDT 11/02/2024 1:07 PM EDT Narrative CLINISYNC - 11/02/2024 2:20 PM EDT Generic External Data Provider CLINISYNC F inal Result Performing Organization Address City/[facility] Co de Phone Number CLINISYNC TB * (ABNORMAL) ALL CBC WITH AUTO DIFF (11/02/2024 1:05 PM EDT) TBH WBC 7.1 4.0 - 11.0 10 3/uL TBH TBH RBC 4.55 4.20 - 5.40 10 6/uL TBH TBH HGB 12.7 12.0 - 16.0 g/dL TBH TBH HCT 37.4 36.0 - 48.0 % TBH TBH MCV 82.2 81.0 - 99.0 fL TBH TBH MCH 27.9 26.7 - 34.0 pg TBH TBH MCHC 34.0 29.9 - 35.2 g/dL TBH TBH RDW 15.6(H) 11.0 - 15.0 % TBH TBH PLT 203 150 - 450 10 3/uL TBH TBH MPV 10.7 9.5 - 13.5 fL TBH NEUTROPHILS PERCENT AUTO 60.9 43.0 - 75.0 % TBH LYMPHOCYTES PERCENT AUTO 28.3 20.5 - 60.0 % TBH MONOCYTES PERCENT AUTO 7.8 1.7 - 12.0 % TBH TBH EO % 1.8 0.9 - 7.0 % TBH BASOPHILS PERCENT AUTO 0.8 0.2 - 2.0 % TBH IMMATURE GRANULOCYTES PCT AUTO 0.4 0.0 - 0.5 % TBH NEUTROPHILS ABSOLUTE AUTO 4.3 1.4 - 6.5 10 3/uL TBH LYMPHOCYTES ABSOLUTE AUTO 2.0 1.2 - 3.8 10 3/uL TBH MONOCYTES ABSOLUTE AUTO 0.6 0.3 - 0.8 10 3/uL TBH TBH EO # 0.1 0.0 - 0.7 10 3/uL TBH BASOPHILS ABSOLUTE AUTO 0.1 0.0 - 0.1 10 3/uL TBH IMMATURE GRANULOCYTES ABS AUTO 0.03 0.00 - 0.03 10 3/uL TBH 11/02/2024 1:05 PM EDT 11/02/2024 1:07 PM EDT Narrative CLINISYNC - 11/02/2024 1:29 PM EDT us Katalina Colbert NP CLINISYNC Final Result CLINISYNC TBH * (ABNORMAL) TBH UA (CLEAN/CATCH) ACCOUNTANCY PROFESSOR/MICRO IF IND. (11/02/2024 12:48 PM EDT) COLOR URINE LT. YELLOW YELLOW TBH CLARITY URINE CLEAR CLEAR TBH SPECIFIC GRAVITY URINE 1.020 1.005 - 1.025 TBH PH URINE 6.0 5.0 - 9.0 TBH PROTEIN URINE NEGATIVE NEG/TRACE mg/dL TBH GLUCOSE URINE UA >=1000(A) NEGATIVE mg/dL TBH BILIRUBIN URINE NEGATIVE NEGATIVE TBH KETONES URINE NEGATIVE NEGATIVE mg/dL TBH BLOOD URINE NEGATIVE NEGATIVE TBH NITRITE URINE NEGATIVE NEGATIVE TBH UROBILINOGEN URINE 0.2 0.2 - 1.0 EU/dL TBH LEUKOCYTE ESTERASE URINE NEGATIVE NEGATIVE TBH URINE MICROSCOPIC INDICATED NO TBH 11/02/2024 12:4 8 PM EDT 11/02/2024 1:07 PM EDT Narrative CLINISYNC - 11/02/2024 2:27 PM EDT Katalina Alphonseronchey DIGITAL ARCHIVIST CLINISYNC Final Result Performing Organization Address [facility] de Phone Number [facility] * TBH MICROALB CREAT RATIO RANDOM (11/02/2024 12:48 PM EDT) MICROALBUMIN URINE RANDOM <1.3 <=30.0 mg/dL TBH CREATININE URINE RANDOM 33.57 20.00 - 300.00 mg/dL TBH 11/02/2024 12:4 8 PM EDT 11/02/2024 1:07 PM EDT Narrative CLINISYNC - 11/02/2024 1:44 PM EDT Katalina Colbert NP CLINISYMO Final Result Performing Organization Address [facility] Phone Number [facility] * XR chest 1 view (10/30/2024 2:36 PM EDT) Anatomical Region Laterality Modality Chest Radiographic Cris ging Katalina Filemon [place] IMG XR PROCEDURES Final Result * (ABNORMAL) POCT glycosylated hemoglobin (Hb A1C) docked device (07/13/2024 10:48 AM EST) Hemoglobin A1C 9.5 Blood Venous blood specimen / Unknown 07/13/2024 10:48 AM EST us Sarah Jarvis MD POINT OF CARE TEST ENTER/EDIT ORDERABLES Final Result * MM TOMOSYNTHESIS SCREENING BI (06/12/2024 4:43 PM EST) Anatomical Region Laterality Modality Other 06/12/2024 4:43 PM EST Narrative 06/12/2024 4:45 [place] [address] Mammography Report Signed Patient: KATALINA HUTCHINS MR#: [id number] : 1965 Acct:[id number] Age/Sex: 59 / F ADM Date: 06/12/24 Loc: MAMMO Attending Dr: Katalina Colbert NP Ordering Physician: Katalina Colbert NP Results: Date of Service: 06/12/24 Follow Up: Procedure(s): MM tomosynthesis screening BI Accession Number(s): [id number] cc: Katalina Colbert NP Patient Name: KATALINA HUTCHINS MR#: [id number] : 1965 Exam Date: 06/12/2024 Ordering Doctor: [...] uterine cancer at age 28. LOCATION: [facility] BREAST COMPOSITION: There are scattered [...] Dictated By: Matias Edwards M.D. Signed By: 06/12/245 DD/ 42 TD/TT: Facilities Engineering Manager: Procedure Note Radiology, Radiologist, MD - 06/12/2024 [place] [address] Mammography Report Signed Patient: KATALINA HUTCHINS MMR#: [id number] : 1965Acct:[id number] Age/Sex: 59 / FADM Date: 06/12/24 Loc: MAMMO Attending Dr: Katalina Colbert NP Ordering Physician: Katalina Colbert NPResults: Date of Service: 06/12/24Follow Up: Procedure(s): MM tomosynthesis screening BI Accession Number(s): [id number] cc: Katalina Colbert NP Patient Name: KATALINA HUTCHINS MR#: [id number] : 1965 Exam Date: 06/12/2024 Ordering Doctor: TARIK Colbert SKIN DRIER RADIOLOGY REPORT PROCEDURE: MM TOMOSYNTHESIS SCREENING BI COMPARISON: MM TOMOSYNTHESIS SCREENING BI, 04/29/2023. MG MAMM [id number] FRANCI CAD, 04/27/2022. MG MAMM SCREEN 3D [...] uterine cancer at age 28. LOCATION: [facility] BREAST COMPOSITION: There are scattered [...] 16:43 Dictated By: Matias Edwards M.D. Signed By:06/12/241644 DD/ 42 TD/TT: Facilities Engineering Manager: Katalina Colbert NP CLINISYNC IMAGING Final Result from Last 3 Months or Most Recently Relevant to Health Maintenance Additional Health Concerns Active Problems Noted Date Diagnosed Date Patient on antidepressant monitoring plan 2024 Baseline PHQ-9 01/08/2025 Insurance [facility] Care Teams Automatic Vulcanizing Lead Operator Relationship Specialty Start Date End Date Kervin Stevens MD [address] [place] [phone] PCP - General Family Medicine 06/01/23 Katalina Colbert NP [address] [place] [address] Nurse Practitioner Family Medicine 03/06/23
--- OUTSIDE RECORDS SUMMARY | 2025-01-30 13:25 | XMS_ITS | Encounter Summary ---
Author Organization [facility] Address [address] [place] [address] Care Team Providers Care Pairer Inspector Name Role Phone Katalina Clobert MAMMOGRAPHY TECHNOLOGIST Unavailable [phone] Kervin Stevens MD Primary Care Provider [phone] Encounter Details Date Type Department Care Team (Late st Contact Info) Description 07/17/2024 Orders Only [facility] [address] [place] [address] Katalina Colbert, NETTIE [address] [place] [address] Social History Tobacco Use Types Packs/Day Years [...] How often do you attend chur or zoroastrianism services? More than 4 times per year 06/02/2023 Do you belong to any clubs o r organizations such as episcopalian groups, unions, fraternal or athletic groups, or [...] medical care, and heating? Somewhat hard 06/02/2023 [facility] - Occupational Stress [...] place to sleep or slept in a usp (including now)? No 06/02/2023 Comments Unknown Sex [...] EDT Office Visit [facility] [address] [place] [address] Katalina Colbert NP [address] [place] [address] 05/15/2025 1:00 PM EST Office Visit [facility] [address] [place] [address] Alexa Pulliam CNM [address] [place] [address] documented as of this encounter Visit Diagnoses Not on filedocumented in this encounter Care Teams Pairer Inspector Relationship Specialty Start Date End Date Kervin Stevens MD [address] [place] [address] PCP - General Family Medicine 06/01/23 Katalina Colbert NP [address] [place] [address] Nurse Practitioner Family Medicine 03/06/23 documented as of this encounter
--- OUTSIDE RECORDS SUMMARY | 2025-01-30 13:25 | XMS_ITS | Encounter Summary ---
Author Organization [facility] Address [address] [place] [address] Care Team Providers Care Underwriting Service Representative Name Role Phone Katalina Colbert GEOLOGICAL SPECIALIST Unavailable [phone] Kervin Stevens MD Primary Care Provider [phone] Encounter Details Date Type Department Care Team (Late st Contact Info) Description 10/30/2024 Orders Only [facility] [address] [place] [address] Katalina Colbert NP [address] [place] [address] Social History Tobacco Use Types Packs/Day Years [...] How often do you attend chur or jain services? More than 4 times per year 08/13/2024 Do you belong to any clubs o r organizations such as anabaptist groups, unions, fraternal or athletic groups, or [...] medical care, and heating? Somewhat hard 08/13/2024 [facility] Occupat ional Health - Occupational Stress [...] place to sleep or slept in a mcfp (including now)? No 06/02/2023 Housing Stability Vital Sign Answer Emanuel e Recorded In the last 12 months, was t here a time when you were not able to pay the mortgage or rent on time? No 08/13/2024 In the past 12 months, how m any times have you moved where you were living? 0 08/13/2024 At any time in the past 12 m [facility], were you homeless or living in a mcfp (including now)? No 08/13/2024 Comments Unknown Sex [...] Visit [facility] [address] [place] [address] Katalina Colbert NP [address] [place] [address] 05/15/2025 1:00 PM EST Office Visit [facility] [address] [place] [address] Alexa Pulliam CNM [address] [place], [place] [phone] documented as of this encounter Procedures Procedure Name Priority Date/Time Associated Diagnosis Comments XR CHEST 1 VIEW Routine 10/30/2024 2:36 PM EDT documented in this encounter Results * XR chest 1 view (10/30/2024 2:36 PM EDT) Anatomical Region Laterality Modality Chest Radiographic Cris ging us Katalina Colbert GEOLOGICAL SPECIALIST IMG XR PROCEDURES Final Result documented in this encounter Visit Diagnoses Not on filedocumented in this encounter Care Teams Underwriting Service Representative Relationship Specialty Start Date End Date Kevrin Stevens MD [address] [place] [phone] PCP - General Family Medicine 06/01/23 Katalina Colbert NP [address] [place] [address] Nurse Practitioner Family Medicine 03/06/23 documented as of this encounter
--- OUTSIDE RECORDS SUMMARY | 2025-01-30 13:25 | XMS_ITS | Encounter Summary ---
Author Organization [facility] Address [address] [place] [address] Care Team Providers Care Full Time Paramedic Name Role Phone Katalina Colbert IRRIGATION ENGINEER Unavailable [phone] Kervin Stevens MD Primary Care Provider [phone] Encounter Details Date Type Department Care Team (Late st Contact Info) Description 01/22/2024 Clinisync Result Encounter [facility] External Department Unsolicited Katalina Colbert, NETTIE [address] [place] [address] Social History Tobacco Use Types Packs/Day Years [...] often do you attend chur ch or christian services? More than 4 times per year 06/02/2023 Do you belong to any clubs o r organizations such as temple groups, unions, fraternal or athletic groups, or [...] medical care, and heating? Somewhat hard 06/02/2023 [facility] Occupat ional Health - [...] place to sleep or slept in a fdc (including now)? No 06/02/2023 Comments Unknown Sex [...] 02/05/2025 11:30 AM EDT [facility] [address] [place] [address] Katalina Colbert NP [address] [place] [address] 05/15/2025 1:00 PM EST Office Visit [facility] [address] [place] [address] Alexa Pulliam CNM [address] [place] [address] documented as of this encounter Procedures Procedure Name Priority Date/Time Associated Diagnosis Comments XR HIP LT MIN 2V 01/22/2024 9:40 AM EDT documented in this encounter Results * XR HIP LT MIN 2V (01/22/2024 9:40 AM EDT) Anatomical Region Laterality Modality Other 01/22/2024 9:40 AM EDT Narrative 01/22/2024 9:42 AM EDT [address] [address] XRay Report Signed Patient: KATALINA HUTCHINS MR#: [id number] : 1965 Acct:[id number] Age/Sex: 58 / F ADM Date: 01/18/24 Loc: RAD Attending Dr: Katalina Colbert IRRIGATION ENGINEER Ordering Physician: Katalina Colbert NP Date of Service: 01/18/24 Procedure(s): XR hip LT min 2V Accession Number(s): [id number] cc: Katalina Colbert NP [place] [address] Patient Name: KATALINA HUTCHINS MRN: [id number] date: 1965 Sex: F Assigned Patient Location: [facility] Current Patient Location: [facility] Accession/Order Number: [id number] Exam Date: 01/18/2024 18:20 Report Date: 01/22/2024 [...] M.D. Signed By: 01/22/2442 DD/ 9 TD/TT: Property Staff Accountant: Procedure Note Radiology, Radiologist, - 01/22/2024 [facility] [place] [id number] XRay Report Signed Patient: KATALINA HUTCHINS MMR#: [id number] : 1965Acct:[id number] Age/Sex: 58 / FADM Date: 01/18/24 Loc: RAD Attending Dr: Katalina Colbert NP Ordering Physician: Katalina Colbert NP Date of Service: 01/18/24 Procedure(s): XR hip LT min 2V Accession Number(s): [id number] cc: Katalina Colbert NP [place] [id number] Patient Name: KATALINA HUTCHINS MRN: [id number] date: 1965 Sex: F Assigned Patient Location: [facility] Current Patient Location: [facility] Accession/Order Number: [id number] Exam Date: 01/18/2024 18:20 Report Date: 01/22/2024 [...] 09:40 Dictated By: Liv Horne M.D. Signed By:01/22/2442 DD/ TD/TT: Property Staff Accountant: us Katalina Colbert NP [facility] IMAGING Final Result documented in this encounter Visit Diagnoses Not on filedocumented in this encounter Care Teams Full Time Paramedic Relationship Specialty Start Date End Date Kervin Stevens MD [address] [place] [address] PCP - General Family Medicine 06/01/23 Katalina Colbert NP [address] [address] Nurse Practitioner Family Medicine 03/06/23 documented as of this encounter
--- OUTSIDE RECORDS SUMMARY | 2025-01-30 13:25 | XMS_ITS | Encounter Summary ---
Author Organization [facility] Address [address] [place] [address] Care Team Providers Care Biology Internship Name Role Phone Katalina Colbert RESISTOR WINDER Unavailable [phone] Kervin Stevens MD Primary Care Provider [phone] Encounter Details Date Type Department Care Team (Latest Contact Info) Description 01/29/2025 Travel Social History Tobacco Use Types Packs/Day Years [...] How often do you attend chur or christian services? More than 4 times per year 08/13/2024 Do you belong to any clubs o r organizations such as baptist groups, unions, fraternal or athletic groups, or [...] medical care, and heating? Somewhat hard 08/13/2024 [facility] Occupat ional Health - Occupational Stress [...] any time in the past 12 m [facility], were you homeless or living in a mcfp (including now)? No 08/13/2024 Comments No Sex [...] Office Visit [facility] [address] [place] [address] Katalina Colbert NP [address] [place] [address] 05/15/2025 1:00 PM EST Office Visit [facility] [address] [place] [phone] Alexa Pulliam CNM [address] [place] [address] documented as of this encounter Goals Goal Patient Goal Type Associated Problems Recent Progress Patient-Stated? Author Help patient manage antidepressant medication Care Plan Patient on antidepressant monitoring plan No Xenia, Argenis Baseline PHQ-9 Care Plan Baseline PHQ-9 No Xenia Argenis documented as of this encounter Visit Diagnoses Not on filedocumented in this encounter Additional Health Concerns Active Problems Noted Date Diagnosed Date Patient on antidepressant monitoring plan 2024 Baseline PHQ-9 01/08/2025 documented as of this encounter Care Teams Biology Internship Relationship Specialty Start Date End Date Kervin Stevens MD [address] [place] [address] PCP - General Family Medicine 06/01/23 Katalina Colbert NP [address] [place] [address] Nurse Practitioner Family Medicine 03/06/23 documented as of this encounter
--- OUTSIDE RECORDS SUMMARY | 2025-01-30 13:25 | XMS_ITS | Clinical Summary ---
Author Organization [facility] Address [id number] [address] [place] [address] Care Team Providers Care Compliance Technician Name Role Phone Kervin Stevens MD Primary Care Provider [phone] Allergies Active Allergy Reactions Criticality Noted Date [...] image is visible to you in MyChart.* us Maninder Holt DO IMG OR IMG ORDERABLES Final Result from Last 3 Months or Most Recently Relevant to Health Maintenance Insurance [employer] [place] [id number] Care Teams Compliance Technician Relationship Specialty Start Date End Date Kervin Stevens MD PCP - General 08/11/17
--- OUTSIDE RECORDS SUMMARY | 2025-01-30 13:25 | XMS_ITS | Encounter Summary ---
Author Organization [facility] Address [address] [place] [address] Care Team Providers Care Centrifugal Wax Molder Name Role Phone Katalina Colbert MINE LABORER Unavailable [phone] Kervin Stevens MD Primary Care Provider [phone] Encounter Details Date Type Department Care Team (Late st Contact Info) Description 12/18/2024 Results Follow-Up [facility] [address] [place] [address] Darlin Reynolds MA THINPREP IMAGING PAP AND HPV DNA REFLEX HPV 16,18 Social History Tobacco Use Types Packs/Day Years [...] medical care, and heating? Somewhat hard 08/13/2024 [facility] Occupat ional Health - Occupational [...] place to sleep or slept in a custodial (including now)? No 06/02/2023 Housing Stability Vital Sign Answer Emanuel e Recorded In the last 12 months, was t here a time when you were not able to pay the mortgage or rent on time? No 08/13/2024 In the past 12 months, how m any times have you moved where you were living? 0 08/13/2024 At any time in the past 12 m [facility], were you homeless or living in a custodial (including now)? No 08/13/2024 Comments No Sex [...] Visit [facility] [address] [place] [address] Katalina Colbert NP [address] [place] [address] 05/15/2025 1:00 PM EST Office Visit [facility] [address] [facility] [place] [address] Alexa Pulliam CNM [address] [place] [facility] [place] [address] documented as of this encounter Visit Diagnoses Not on filedocumented in this encounter Care Teams Centrifugal Wax Molder Relationship Specialty Start Date End Date Kervin Stevens MD [address] [place] [address] PCP - General Family Medicine 06/01/23 Katalina Colbert NP [address] [place] [address] Nurse Practitioner Family Medicine 03/06/23 documented as of this encounter
--- OUTSIDE RECORDS SUMMARY | 2025-01-30 13:25 | XMS_ITS | Encounter Summary ---
Author Organization [facility] Address [address] [place] [address] Care Team Providers Care Electrical Instrument Technician Name Role Phone Katalina Colbert SENIOR PATROL AGENT Unavailable [phone] Kervin Stevens MD Primary Care Provider [phone] Encounter Details Date Type Department Care Team (Late st Contact Info) Description 06/12/2024 Clinisync Result Encounter [facility] External Department Unsolicited Katalina Colbert, NETTIE [address] [place] [address] Social History Tobacco Use Types Packs/Day Years [...] often do you attend chur ch or episcopalian services? More than 4 times per year 06/02/2023 Do you belong to any clubs o r organizations such as orthodox groups, unions, fraternal or athletic groups, or [...] medical care, and heating? Somewhat hard 06/02/2023 [facility] - Occupational [...] 02/05/2025 11:30 AM EDT Office Visit [facility] [address] [place] [address] Katalina Colbert NP [address] [place] [address] 05/15/2025 1:00 PM EST Office Visit [facility] [address] [place] [address] Alexa Pulliam CNM [address] [place] [address] documented as of this encounter Procedures Procedure Name Priority Date/Time Associated Diagnosis Comments MM TOMOSYNTHESIS SCREENING BI 06/12/2024 4:43 PM EST documented in this encounter Results * MM TOMOSYNTHESIS SCREENING BI (06/12/2024 4:43 PM EST) Anatomical Region Laterality Modality Other 06/12/2024 4:43 PM EST Narrative 06/12/2024 4:45 PM EST The [address] [address] Mammography Report Signed Patient: KATALINA HUTCHINS MR#: [id number] : 1965 Acct:[id number] Age/Sex: 59 / F ADM Date: 06/12/24 Loc: MAMMO Attending Dr: Katalina Colbert NP Ordering Physician: Katalina Colbert NP Results: Date of Service: 06/12/24 Follow Up: Procedure(s): MM tomosynthesis screening BI Accession Number(s): [id number] cc: Katalina Colbert NP Patient Name: KATALINA HUTCHINS MR#: [id number] : 1965 Exam Date: 06/12/2024 Ordering Doctor: [...] uterine cancer at age 28. LOCATION: [facility] BREAST COMPOSITION: There are scattered areas of [...] M.D. Signed By: 06/12/245 DD/ 42 TD/TT: General Lithographic Worker: Procedure Note Radiology, Radiologist, MD - 06/12/2024 [place] [address] Mammography Report Signed Patient: KATALINA HUTCHINS MMR#: [id number] : 1965Acct:[id number] Age/Sex: 59 / FADM Date: 06/12/24 Loc: MAMMO Attending Dr: Katalina Colbert NP Ordering Physician: Katalina Colbert NPResults: Date of Service: 06/12/24Follow Up: Procedure(s): MM tomosynthesis screening BI Accession Number(s): [id number] cc: Katalina Colbert NP Patient Name: KATALINA HUTCHINS MR#: [id number] : 1965 Exam Date: 06/12/2024 Ordering Doctor: TARIK Colbert CNP RADIOLOGY REPORT PROCEDURE: MM TOMOSYNTHESIS SCREENING BI COMPARISON: MM TOMOSYNTHESIS SCREENING BI, 04/29/2023. MG MAMM [id number] FRANCI CAD, 04/27/2022. MG MAMM SCREEN 3D [...] uterine cancer at age 28. LOCATION: [facility] BREAST COMPOSITION: There are scattered areas of [...] M.D. Signed By:06/12/24 1645 DD/ 1643 TD/TT: General Lithographic Worker: us Katalina Colbert NP [facility] Final Result documented in this encounter Visit Diagnoses Not on filedocumented in this encounter Care Teams Electrical Instrument Technician Relationship Specialty Start Date End Date Kervin Stevens MD [address] [place] [address] PCP - General Family Medicine 06/01/23 Katalina Colbert NP [address] [place] [address] Nurse Practitioner Family Medicine 03/06/23 documented as of this encounter
--- OUTSIDE RECORDS SUMMARY | 2025-01-30 13:25 | XMS_ITS | Clinical Summary ---
Author Organization Address [address] [place] [address] Care Team Providers Care High Rigger Name Role Phone Katalina Colbert CNP Primary Care Provider Zion Nugent MD Unavailable [phone] Allergies Active Allergy Reactions Criticality Noted Date [...] Take 1 tablet by mouth once daily. 90 tablet 3 5 Active Active Problems Problem Noted Date Diagnosed Date Thyroid cancer 06/04/2020 Bicipital tendinitis 11/23/2012 Rotator cuff (capsule) sprain 08/07/2012 Cervicalgia 08/07/2012 Encounters Date Type Department Care Team Description 11/23/2024 Refill Radiation Oncology [address] [place] [address] Zion Nugent MD Refill Request 11/22/2024 Telephone Radiation Oncology [address] [place] [address] [place] [address] Zion Nugent MD Results; Future Appointment 11/21/2024 4:00 PM EDT [facility] Radiation Oncology [address] [place] [address] [place] [address] Zion Nugent MD History of thyroid cancer (Primary Dx) 11/20/2024 Travel 11/13/2024 Telephone Radiation Oncology [address] [place] [address] [place] [address] Zion Nugent MD Results; Patient Update; Future Appointment 11/08/2024 Travel from Last 3 Months Family History Medical History Relation Comments Colon Cancer Father Diabetes Father Colon Cancer Mother Diabetes Mother Heart Mother 2009 Uterine Cancer Mother Breast Cancer Paternal Grandmother Colon Cancer Paternal Grandmother Relation Status Comments Father Mother Paternal Grandmother Social History Tobacco Use Types Packs/Day Years Used Date Smoking Tobacco: Former Cigarettes 1 25 Smokeless Tobacco: Never Comments:quit smoking Jun Alcohol Use Standard Drinks/Week Comments Not Currently 0 (1 standard drink = 0.6 oz pur e alcohol) PHQ-2 Answer Date Recorded PHQ-2 score 0 11/20/2024 Area Deprivation Index Answer Date Patrick rded National Score (1-100), lowe r number is lower risk 60 11/18/2022 State Score (1-10), lower number is lower risk 4 11/18/2022 Data from: https://www.neighborhoodatlas.medicine.[facility].edu/ . Last address used for calculation [address] 11/18/2022 Comments No Sex and [...] Department Care Team (Latest Contact Info) Description 11/21/2025 11:30 AM EDT Office Visit [facility] Laboratory [address] [place] [address] labs 11/27/2025 4:00 PM EDT [facility] Radiation Oncology [address] [place] [address] Zion Nugent MD [address] [place] [address] Follow up after recheck labs Health Maintenance Due Date Last Done Comments Anxiety Screening 1985 Depression Screening 1985 HIV Screening 1985 Hepatitis C Screening 1985 DTaP,Tdap,Td Vaccine (1 - Tdap) 1986 Cervical Cancer Screening 01/25/[address] Colonography 01/25/2012 Cologuard (FIT-DNA) 01/25/2012 Colonoscopy 01/25/2012 Colorectal Cancer Screening 01/25/2012 Fecal Occult Blood 01/25/2012 Lipid Screening 01/25/2012 Sigmoidoscopy 01/25/2012 Shingrix Vaccine (2 of 2) 04/20/2024 02/24/2024 Influenza Vaccine (#1) 2025 , 03/25/2020, 04/05/2019, Additional history exists Diabetes Screening 07/13/2027 07/13/2024, 1 , 02/10/2021, Additional history exists Hepatitis B Vaccine Completed 08/11/2001, 02/17/2001, 03/09/2000 Pneumococcal Vaccine: 50+ Completed 02/24/2024, Medical Devices Implanted Type Area Brake Repairer Hydraulic Device Identifier Shelf Expiration Date Model / Serial / Lot 0---Anchr Sut 4.5mm Pshlk nl - [id number] Implanted:Qty: 3 on 11/29/2012 at [facility] [place] Right: Bone - Shoulder [employer] 08/03/2017 [id number] / / [id number] Description:SUTURE ANCHOR Procedures Procedure Name Priority Date/Time Associated Diagnosis Comments EXTERNAL LAB 11/20/2024 2:39 PM EDT EXTERNAL LAB 11/09/2024 3:16 PM EDT EXTERNAL LAB 11/08/2024 3:55 PM EDT EXTERNAL LAB 10/31/2024 9:18 AM EDT EXTERNAL CARDIOLOGY 10/31/2024 9 :18 AM EDT EXTERNAL IMAGING 10/31/2024 9:18 AM EDT EXTERNAL LAB 10/31/2024 9:18 AM EDT from Last 3 Months Results * EXTERNAL LAB (11/20/2024 2:39 PM EDT) Only the most recent of5 resultswithin the time period is included. us External Provider PA-C LABORATORY Final Res ult * EXTERNAL CARDIOLOGY (10/31/2024 9:18 AM EDT) us External Provider PA-Nery CARDIOLOGY Final Res ult * EXTERNAL IMAGING (10/31/2024 9:18 AM EDT) Anatomical Region Laterality Modality Other External Provider PA-C RADIOLOGY Final Res ult from Last 3 Months Insurance [employer] * Guarantor: Katalina Ernst Account Type Relation to Patient Date of Phone Billing Address Self Pay Self 1965 [address] [address] Care Teams High Rigger Relationship Specialty Start Date End Date Katalina Colbert CNP PCP - General Family Medicine 11/26/14 Zion Nugent MD [address] [place] [address] [place] [address] Radiation Oncology 05/28/20
--- OUTSIDE RECORDS SUMMARY | 2025-01-30 13:25 | XMS_ITS | Encounter Summary ---
Author Organization [facility] Address [address] [place] [address] Care Team Providers Care Environmental Studies Program Director Name Role Phone Katalina Colbert SAW TAILER Unavailable [phone] Kervin Stevens MD Primary Care Provider [phone] Encounter Details Date Type Department Care Team (Late st Contact Info) Description 08/13/2024 Orders Only [facility] [address] [place] [address] Mason Stephens MD [address] [place] [address] Social History Tobacco Use Types Packs/Day Years [...] How often do you attend chur or bahai services? More than 4 times per year 08/13/2024 Do you belong to any clubs o r organizations such as judaism groups, unions, fraternal or athletic groups, or [...] place to sleep or slept in a jail (including now)? No 06/02/2023 Housing Stability Vital Sign Answer Emanuel e Recorded In the last 12 months, was t here a time when you were not able to pay the mortgage or rent on time? No 08/13/2024 In the past 12 months, how m any times have you moved where you were living? 0 08/13/2024 At any time in the past 12 m [facility], were you homeless or living in a jail (including now)? No 08/13/2024 Comments Unknown Sex [...] 02/05/2025 11:30 AM EDT Office Visit [facility] [address] [place] [address] Katalina Colbert NP [address] [place] [address] 05/15/2025 1:00 PM EST Office Visit [facility] LO[facility] [address] [place] [address] Alexa Pulliam CN [address] [place], [place] [phone] documented as of this encounter Procedures Procedure Name Priority Date/Time Associated Diagnosis Comments US PELVIS TRANSVAGINAL Routine 08/13/2024 3:15 PM EDT documented in this encounter Results * US pelvis transvaginal (08/13/2024 3:15 PM EDT) Anatomical Region Laterality Modality Pelvis Ultrasound us Mason Stephens MD IMG US PROCEDURES Final Result documented in this encounter Visit Diagnoses Not on filedocumented in this encounter Care Teams Environmental Studies Program Director Relationship Specialty Start Date End Date Kervin Stevens MD [address] [place] [address] PCP - General Family Medicine 06/01/23 Katalina Colbert, NETTIE [address] [place] [address] Nurse Practitioner Family Medicine 03/06/23 documented as of this encounter
--- OUTSIDE RECORDS SUMMARY | 2025-01-30 13:25 | XMS_ITS | Encounter Summary ---
Author Organization [facility] Address [address] [place] [address] Care Team Providers Care 21 Dealer Name Role Phone Katalina Colbert MODELING AGENCY MANAGER Unavailable [phone] Kervin Stevens MD Primary Care Provider [phone] Encounter Details Date Type Department Care Team (Late st Contact Info) Description 09/28/2023 Orders Only [facility] [address] [place] [address] Maninder Holt [address] [id number] Social History Tobacco Use Types Packs/Day Years [...] often do you attend chur ch or latter-day services? More than 4 times per year 06/02/2023 Do you belong to any clubs o r organizations such as roman catholic groups, unions, fraternal or athletic groups, or [...] medical care, and heating? Somewhat hard 06/02/2023 [facility] - Occupational [...] Office Visit [facility] [address] [place] [address] Katalina Colbert NP [address] [place] [address] 05/15/2025 1:00 PM EST Office Visit [facility] LO[facility] [address] [place] [address] Alexa Pulliam CNM [address] [place] [address] documented as of this encounter Procedures Procedure Name Priority Date/Time Associated Diagnosis Comments SCANNED LABS Routine 09/28/2023 11:17 AM EDT documented in this encounter Results * SCANNED LABS (09/28/2023 11:17 AM EDT) Maninder Holt DO LAB CHG PERFORMABLES Final Re sult documented in this encounter Visit Diagnoses Not on filedocumented in this encounter Care Teams 21 Dealer Relationship Specialty Start Date End Date Kervin Stevens MD [address] [place] [address] PCP - General Family Medicine 06/01/23 Katalina Colbert NP [address] [place] [address] Nurse Practitioner Family Medicine 03/06/23 documented as of this encounter
--- OUTSIDE RECORDS SUMMARY | 2025-01-30 13:25 | XMS_ITS | Encounter Summary ---
Author Organization [facility] Address [address] [place] [address] Care Team Providers Care Copy Room Technician Name Role Phone Katalina Colbert CONSULTING SOFTWARE ENGINEER Unavailable [phone] Kervin Stevens MD Primary Care Provider [phone] Encounter Details Date Type Department Care Team (Late st Contact Info) Description 05/14/2024 Orders Only [facility] [address] [place] [address] Sarah Khan MD [address] [place] [address] Social History Tobacco Use Types Packs/Day Years [...] often do you attend chur ch or nondenominational services? More than 4 times per year 06/02/2023 Do you belong to any clubs o r organizations such as moravian groups, unions, fraternal or athletic groups, or [...] Visit [facility] [address] [place] [address] Katalina Colbert NP [address] [place] [address] 05/15/2025 1:00 PM EST Office Visit [facility] [address] [place] [address] Alexa Pulliam CNM [address] [place] [address] documented as of this encounter Procedures Procedure Name Priority Date/Time Associated Diagnosis Comments DIABETES EYE EXAM Routine 05/14/2024 7:46 AM EST documented in this encounter Results * Diabetes Eye Exam (05/14/2024 7:46 AM EST) us Sarah Khan MD HEALTH MAINTENANCE Final Resu lt documented in this encounter Visit Diagnoses Not on filedocumented in this encounter Care Teams Copy Room Technician Relationship Specialty Start Date End Date Kervin Stevens MD [address] [place] [address] PCP - General Family Medicine 06/01/23 Katalina Colbert NP [address] [place] [address] Nurse Practitioner Family Medicine 03/06/23 documented as of this encounter
--- OUTSIDE RECORDS SUMMARY | 2025-01-30 13:25 | XMS_ITS ---
Author Organization [facility] Address [address] [place] [address] Care Team Providers Care Broom Bundler Name Role Phone Katalina Colbert CNP Primary Care Provider [phone] Zion Nugent MD Unavailable [phone] Active Problems Problem Noted Date Diagnosed Date [...]
--- OUTSIDE RECORDS SUMMARY | 2025-01-30 13:25 | XMS_ITS | Encounter Summary ---
Author Organization [facility] Address [address] [place] [address] Care Team Providers Care Deckhand Tuna Boat Name Role Phone Katalina Colbert CNP Primary Care Provider [phone] Zion Nugent MD Unavailable [phone] Source Comments In the event this information is protected by the Federal Confidentiality of Alcohol and Drug AbusePatient Records regulations: The Federal rules restrict any use of the information to criminally investigate or prosecute any alcohol or drug abuse patient.[facility] Encounter Details Date Type Department Care Team (Late st Contact Info) Description 05/29/2020 Abstract Radiation Oncology [address] [place] [address] [place] [address] Kaitlynn Carreon, SHAYLA Social History Tobacco Use [...] N ot on file 05/29/2020 Data from: https://www.neighborhoodatlas.medicine.[facility]/. Last address used for calculation Not [...] Description 11/21/2025 11:30 AM EDT Office Visit [facility] Laboratory [address] [place] [address] labs 11/27/2025 4:00 PM EDT [facility] Radiation Oncology [address] [place] [address] Zion Nugent MD [address] [place] [address] Follow up after recheck labs documented as of this encounter Visit Diagnoses Not on filedocumented in this encounter Care Teams Deckhand Tuna Boat Relationship Specialty Start Date End Date Katalina Colbert CNP PCP - General Family Medicine 11/26/14 Zion Nugent MD [address] [place] [address] Radiation Oncology 05/28/20 documented as of this encounter
--- OUTSIDE RECORDS SUMMARY | 2025-01-30 13:25 | XMS_ITS | Encounter Summary ---
Author Organization [facility] Address [address] [place] [address] Care Team Providers Care Recreation Facilities Supervisor Name Role Phone Katalina Colbert MD Primary Care Provider [phone] Encounter Details Date Type Department Care Team (Late st Contact Info) Description 01/14/2025 Orders Only [facility] Heart [facility] [address] [place] [address] ProviderIvana [place] [address] Social History Tobacco Use Types Packs/Day Years Used Date Smoking Tobacco: Former Cigarettes Smokeless Tobacco: Never Alcohol Use Standard Drinks/Week Comments Yes 0 (1 standard drink = 0.6 oz pur e alcohol) occasional Comments Unknown Sex and Gender Information Value Date Recorded Sex Assigned at Female 01/14/2025 2:39 PM EDT Legal Sex Female 12:31 AM EDT Gender Identity Female 01/14/2025 2:39 PM EDT Sexual Orientation Heterosexual or Straight 01/04 2:39 PM EDT documented as of this encounter Plan of Treatment Upcoming Encounters Date Type Department Care Team (Late st Contact Info) Description 02/22/2025 9:30 AM EDT Hospital Encounter [facility] Vascular Lab [address] [place] [address] Emeterio Tuttle MD [address] [facility] [address] [facility] [place] [address] Other chest pain; Cardiovascular stress test abnormal; Shortness of breath 02/22/2025 9:30 AM EDT - 02/22/2025 10:30 AM EDT Surgery [facility] Vascular Lab [address] [place] [address] Emeterio Tuttle MD [address] [facility] [place] [address] Coronary angiography documented as of this encounter Procedures Procedure Name Priority Date/Time Associated Diagnosis Comments LEXISCAN STRESS MYOCARDIAL PERFUSION IMAGING Routine 01/02/2025 3:06 PM EDT documented in this encounter Results * Lexiscan Stress Myocardial Perfusion Imaging (01/02/2025 3:06 PM EDT) Anatomical Region Laterality Modality Other us Historical Provider CV STRESS PROCEDURES Melva l Result documented in this encounter Visit Diagnoses Not on filedocumented in this encounter Care Teams Recreation Facilities Supervisor Relationship Specialty Start Date End Date Katalina Colbert MD [address] [place] [address] PCP - General Nurse Practitioner 01/14/25 documented as of this encounter
--- OUTSIDE RECORDS SUMMARY | 2025-01-30 13:25 | XMS_ITS | Encounter Summary ---
Author Organization [facility] Address [address] [place] [address] Care Team Providers Care Prosthodontist Name Role Phone Katalina Colbert OIL DISTRIBUTOR Unavailable [phone] Kervin Stevens MD Primary Care Provider [phone] Encounter Details Date Type Department Care Team (Late st Contact Info) Description 01/02/2025 Orders Only [facility] [address] [place] [address] Katalina Colbert NP [address] [place] [address] Social History Tobacco Use Types Packs/Day Years [...] How often do you attend chur or taoist services? More than 4 times per year 08/13/2024 Do you belong to any clubs o r organizations such as buddhism groups, unions, fraHyglos or athletic groups, or school groups? No [...] any time in the past 12 m [facility], were you homeless or living in a [...] Visit [facility] [address] [place] [address] Katalina Colbert NP [address] [place] [address] 05/15/2025 1:00 PM EST Office Visit [facility] [address] [facility] [place] [address] Alexa Pulliam CNM [address] [facility], [place] [address] documented as of this encounter Procedures Procedure Name Priority Date/Time Associated Diagnosis Comments STRESS TEST LEXISCAN Routine 01/02/2025 6:09 PM EDT documented in this encounter Results * STRESS TEST LEXISCAN (01/02/2025 6:09 PM EDT) Anatomical Region Laterality Modality Heart Other us Katalina Colbert NP CV STRESS PROCEDURES Final Resu lt documented in this encounter Visit Diagnoses Not on filedocumented in this encounter Care Teams Prosthodontist Relationship Specialty Start Date End Date Kervni Stevens MD [address] [place] [address] PCP - General Family Medicine 06/01/23 Katalina Colbert NP [address] [place] [address] Nurse Practitioner Family Medicine 03/06/23 documented as of this encounter
--- OUTSIDE RECORDS SUMMARY | 2025-01-30 13:25 | XMS_ITS | Encounter Summary ---
Author Organization [facility] Address [address] [place] [address] Care Team Providers Care Booking Police Officer Name Role Phone Katalina Colbert NP Unavailable [phone] Kervin Stevens MD Primary Care Provider [phone] Encounter Details Date Type Department Care Team (Late st Contact Info) Description 01/16/2025 Results Follow-Up [facility] [address] [place] [address] [place] LACEY PERF SPECT REST STR Social History Tobacco Use Types Packs/Day Years [...] How often do you attend chur or rastafarian services? More than 4 times per year 08/13/2024 Do you belong to any clubs o r organizations such as latter-day groups, unions, fraternal or athletic groups, or [...] medical care, and heating? Somewhat hard 08/13/2024 [facility] - Occupational Stress Questionnaire Answer Date [...] any time in the past 12 m [facility], were you homeless or living in [...] Visit [facility] [address] [place] [address] Katalina Colbert NP [address] [place] [address] 05/15/2025 1:00 PM EST Office Visit [facility] [address] [place] [address] Alexa Pulliam, COLBY [address] [place] [address] documented as of this encounter Goals Goal Patient Goal Type Associated Problems Recent Progress Patient-Stated? Author Help patient manage antidepressant medication Care Plan Patient on antidepressant monitoring plan No Argenis Michaels Baseline PHQ-9 Care Plan Baseline PHQ-9 No Argenis Michaels documented as of this encounter Visit Diagnoses Not on filedocumented in this encounter Additional Health Concerns Active Problems Noted Date Diagnosed Date Patient on antidepressant monitoring plan 2024 Baseline PHQ-9 01/08/2025 documented as of this encounter Care Teams Booking Police Officer Relationship Specialty Start Date End Date Kervin Stevens MD [address] [place] [address] PCP - General Family Medicine 06/01/23 Katalina Colbert NP [address] [place] [address] Nurse Practitioner Family Medicine 03/06/23 documented as of this encounter
--- OUTSIDE RECORDS SUMMARY | 2025-01-30 13:25 | XMS_ITS | Encounter Summary ---
Author Organization [facility] Address [address] [place] [address] Care Team Providers Care Stock Chaser Name Role Phone Katalina Colbert NP Unavailable [phone] Kervin Stevens MD Primary Care Provider [phone] Encounter Details Date Type Department Care Team (Late st Contact Info) Description 01/22/2025 Bamboo flowsheet [facility] OBEM [address] [place] [address] Alexa Pulliam, CN [address] [place], [place] [id number] Social History Tobacco Use Types Packs/Day Years [...] How often do you attend chur or quaker services? More than 4 times per year [...] medical care, and heating? Somewhat hard 08/13/2024 [facility] [...] place to sleep or slept in a [place] facility (including now)? No 06/02/2023 Housing Stability Vital [...] in the past 12 m [facility], were you homeless or living in a [place] (including now)? No 08/13/2024 Comments No Sex [...] Visit [facility] [address] [place] [address] Katalina Colbert NP [address] [place] [address] 05/15/2025 1:00 PM EST Office Visit [facility] [address] [place] [address] Alexa Pulliam CNM [address] [place], [place] [address] documented as of this encounter Goals Goal [...] documented as of this encounter Care Teams Stock Chaser Relationship Specialty Start Date End Date Kervin Stevens MD [address] [place] [address] PCP - General Family Medicine 06/01/23 Katalina Colbert NP [address] [place] [address] Nurse Practitioner Family Medicine 03/06/23 documented as of this encounter
--- OUTSIDE RECORDS SUMMARY | 2025-01-30 13:25 | XMS_ITS | Encounter Summary ---
Author Organization [facility] Address [address] [place] [address] Care Team Providers Care Title Specialist Name Role Phone Katalina Colbert STAMP MOUNTER Unavailable [phone] Kervin Stevens MD Primary Care Provider [phone] Encounter Details Date Type Department Care Team (Late st Contact Info) Description 01/23/2024 Orders Only [facility] [address] [place] [address] Katalina Colbert, NETTIE [address] [place] [address] Social History Tobacco Use Types Packs/Day Years [...] How often do you attend chur or hoahaoism services? More than 4 times per year [...] medical care, and heating? Somewhat hard 06/02/2023 [facility] Occupat ional Health - Occupational Stress [...] place to sleep or slept in a skilled nursing (including now)? No 06/02/2023 Comments Unknown Sex [...] Office Visit [facility] [address] [place] [address] Katalina Colbert NP [address] [place] [address] 05/15/2025 1:00 PM EST Office Visit [facility] [address] [place] [address] Alexa Pulliam CNM [address] [place] [address] documented as of this encounter [...] on filedocumented in this encounter Care Teams Title Specialist Relationship Specialty Start Date End Date Kervin Stevens MD [address] [place] [address] PCP - General Family Medicine 06/01/23 Katalina Colbert NP [address] [place] [address] Nurse Practitioner Family Medicine 03/06/23 documented as of this encounter
--- OUTSIDE RECORDS SUMMARY | 2025-01-30 13:25 | XMS_ITS | Encounter Summary ---
Author Organization [facility] Address [address] [place] [address] Care Team Providers Care Air Box Tester Name Role Phone Katalina Colbert HAND SHOES SEWER Unavailable [phone] Kervin Stevens MD Primary Care Provider [phone] Reason for Visit * Reason Comments Med Refill Encounter Details Date Type Department Care Team (Late st Contact Info) Description 08/24/2024 Refill [facility] [address] [place] [address] Katalina Colbert, HAND SHOES SEWER [address] [place] [address] Allergic rhinitis, unspecified seasonality, unspecified trigger Social [...] any clubs o r organizations such as sabianist groups, unions, fraternal or athletic groups, or [...] medical care, and heating? Somewhat hard 08/13/2024 [facility] Occupat ional Health - Occupational Stress [...] a skilled nursing (including now)? No 06/02/2023 Housing Stability Vital Sign Answer Emanuel e Recorded In the last 12 months, was t here a time when you were not able to pay the mortgage or rent on time? No 08/13/2024 In the past 12 months, how m any times have you moved where you were living? 0 08/13/2024 At any time in the past 12 m [facility], were you homeless or living in a skilled nursing (including now)? No 08/13/2024 Comments Unknown Sex [...] Office Visit [facility] [address] [place] [address] Katalina Colbert NP [address] [place] [address] 05/15/2025 1:00 PM EST Office Visit [facility] [address] [place] [address] Alexa Pulliam CNM [address] [place] [address] documented as of this encounter Visit Diagnoses Diagnosis Allergic rhinitis, unspecified seasonality, unspecified trigger documented in this encounter Care Teams Air Box Tester Relationship Specialty Start Date End Date Kervin Stevens MD [address] [place] [address] PCP - General Family Medicine 06/01/23 Katalina Colbert NP [address] [place] [address] Nurse Practitioner Family Medicine 03/06/23 documented as of this encounter
--- OUTSIDE RECORDS SUMMARY | 2025-01-30 13:25 | XMS_ITS | Encounter Summary ---
Author Organization [facility] Address [address] [place] [address] Care Team Providers Care Grease Renderer Name Role Phone Katalina Colbert LUMBER STACKER Unavailable [phone] Kervin Stevens MD Primary Care Provider [phone] Encounter Details Date Type Department Care Team (Late st Contact Info) Description 01/22/2024 Clinisync Result Encounter [facility] External Department Unsolicited Katalina Colbert, NETTIE [address] [place] [address] Social History Tobacco Use Types Packs/Day Years [...] often do you attend chur ch or sabianist services? More than 4 times per year 06/02/2023 Do you belong to any clubs o r organizations such as adventism groups, unions, fraternal or athletic groups, or [...] medical care, and heating? Somewhat hard 06/02/2023 [facility] of Occupat ional [...] in a long-term (including now)? No 06/02/2023 Comments Unknown Sex [...] 02/05/2025 11:30 AM EDT Office Visit [facility] [address] [place] [address] Katalina Colbert NP [address] [place] [address] 05/15/2025 1:00 PM EST Office Visit [facility] [address] [place] [address] Alexa Pulliam CNM [address] [place] [address] documented as of this encounter Procedures Procedure Name Priority Date/Time Associated Diagnosis Comments XR LUMBAR SPINE 2 OR 3V 01/22/2024 9:39 AM EDT documented in this encounter Results * XR LUMBAR SPINE 2 OR 3V (01/22/2024 9:39 AM EDT) Anatomical Region Laterality Modality Radiographic Cris ging 01/22/2024 9:39 AM EDT Narrative 01/22/2024 9:42 AM EDT [address] [address] XRay Report Signed Patient: KATALINA HUTCHINS MR#: [id number] : 1965 Acct:[id number] Age/Sex: 58 / F ADM Date: 01/18/24 Loc: RAD Attending Dr: Katalina Colbert LUMBER STACKER Ordering Physician: Katalina Colbert NP Date of Service: 01/18/24 Procedure(s): XR lumbar spine 2-3V Accession Number(s): [id number] cc: Katalina Colbert NP [place] [address] Patient Name: KATALINA HUTCHINS MRN: [id number] date: 1965 Sex: F Assigned Patient Location: [facility] Current Patient Location: [facility] Accession/Order Number: [id number] Exam Date: 01/18/2024 18:20 Report Date: 01/22/2024 [...] Liv Horne M.D. Signed By: 01/22/2442 DD/ TD/TT: Cto: Procedure Note Radiology, Radiologist, MD - 01/22/2024 [facility] [place] [id number] XRay Report Signed Patient: KATALINA HUTCHINS MMR#: [id number] : 1965Acct:[id number] Age/Sex: 58 / FADM Date: 01/18/24 Loc: RAD Attending Dr: Katalina Colbert LUMBER STACKER Ordering Physician: Katalina Colbert NP Date of Service: 01/18/24 Procedure(s): XR lumbar spine 2-3V Accession Number(s): [id number] cc: Katalina Colbert NP [facility] [place] [id number] Patient Name: KATALINA HUTCHINS MRN: [id number] date: 1965 Sex: F Assigned Patient Location: [facility] Current Patient Location: [facility] Accession/Order Number: [id number] Exam Date: 01/18/2024 18:20 Report Date: 01/22/2024 [...] Liv Horne M.D. Signed By:01/22/2442 DD/ TD/TT: Cto: Katalina Colbert LUMBER STACKER IMG XR PROCEDURES Final Result documented in this encounter Visit Diagnoses Not on filedocumented in this encounter Care Teams Grease Renderer Relationship Specialty Start Date End Date Kervin Stevens MD [address] [place] [address] PCP - General Family Medicine 06/01/23 Katalina Colbert NP [address] [place] [address] Nurse Practitioner Family Medicine 03/06/23 documented as of this encounter
--- OUTSIDE RECORDS SUMMARY | 2025-01-30 13:26 | XMS_ITS | Encounter Summary ---
Author Organization [facility] Address [address] [place] [address] Care Team Providers Care Conduit Helper Name Role Phone Katalina Colbert DIRECTOR OF PATIENT CARE Unavailable [phone] Kervin Stevens MD Primary Care Provider [phone] Encounter Details Date Type Department Care Team (Late st Contact Info) Description 05/04/2023 Clinisync Result Encounter [facility] External Department Unsolicited Katalina Colbert NP [address] [place] [address] Social History Tobacco Use Types Packs/Day Years [...] 02/05/2025 11:30 AM EDT [facility] [address] [place] [address] Katalina Colbert NP [address] [place] [address] 05/15/2025 1:00 PM EST Office Visit [facility] [place] [address] Alexa Pulliam, CNM [address] [place] [address] documented as of this encounter Procedures Procedure Name Priority Date/Time Associated Diagnosis Comments MM TOMOSYNTHESIS SCREENING BI 05/04/2023 12:55 PM EST documented in this encounter Results * MM TOMOSYNTHESIS SCREENING BI (05/04/2023 12:55 PM EST) Anatomical Region Laterality Modality Other 05/04/2023 12:5 5 PM EST Narrative 05/04/2023 12:55 PM EST [address] [address] Mammography Report Signed Patient: KATALINA HUTCHINS MR#: [id number] : 1965 Acct:[id number] Age/Sex: 58 / F ADM Date: 04/29/23 Loc: MAMMO Attending Dr: Katalina Colbert NP Ordering Physician: Katalina Colbert NP Results: Date of Service: 04/29/23 Follow Up: Procedure(s): MM tomosynthesis screening BI Accession Number(s): [id number] cc: Katalina Colbert NP Patient Name: KATALINA HUTCHINS MR#: [id number] : 1965 Exam Date: 04/29/2023 Ordering Doctor: TARIK Colbert ASSISTANT QUALITY MANAGER RADIOLOGY REPORT PROCEDURE: MM TOMOSYNTHESIS SCREENING BI [...] uterine cancer at age 28. LOCATION: [facility] BREAST COMPOSITION: Scattered areas fibroglandular density. [...] Signed By: 05/04/23 1256 DD/ 1255 TD/TT: Sales Department Manager: Procedure Note Radiology, Radiologist, MD - 05/04/2023 [place] [address] Mammography Report Signed Patient: KATALINA HUTCHINS MMR#: [id number] : 1965Acct:[id number] Age/Sex: 58 / FADM Date: 04/29/23 Loc: MAMMO Attending Dr: Katalina Colbert NP Ordering Physician: Katalina Colbert NPResults: Date of Service: 04/29/23Follow Up: Procedure(s): MM tomosynthesis screening BI Accession Number(s): [id number] cc: Katalina Colbert NP Patient Name: KATALINA HUTCHINS MR#: [id number] : 1965 Exam Date: 04/29/2023 Ordering Doctor: TARIK Colbert ASSISTANT QUALITY MANAGER RADIOLOGY REPORT PROCEDURE: MM TOMOSYNTHESIS SCREENING BI [...] uterine cancer at age 28. LOCATION: [facility] BREAST COMPOSITION: Scattered areas fibroglandular density. [...] M.D. Signed By:05/04/23 1256 DD/ 1255 TD/TT: Sales Department Manager: us Katalina Colbert NP [facility] Final Result documented in this encounter Visit Diagnoses Not on filedocumented in this encounter Care Teams Conduit Helper Relationship Specialty Start Date End Date Kervin Stevens MD [address] [place] [address] PCP - General Family Medicine 06/01/23 Katalina Colbert NP [address] [place] [address] Nurse Practitioner Family Medicine 03/06/23 documented as of this encounter
--- OUTSIDE RECORDS SUMMARY | 2025-01-30 13:26 | XMS_ITS | Encounter Summary ---
Author Organization [facility] Address [address] [place] [address] Care Team Providers Care Toe Pounder Name Role Phone Katalina Colbert PACKAGING SUPERVISOR Unavailable [phone] Kervin Stevens MD Primary Care Provider [phone] Encounter Details Date Type Department Care Team (Late st Contact Info) Description 09/27/2023 Orders Only [facility] [address] [place] [address] Maninder [address] [id number] Social History Tobacco Use Types Packs/Day Years [...] any clubs o r organizations such as sikhism groups, unions, fraternal or athletic groups, or [...] medical care, and heating? Somewhat hard 06/02/2023 [facility] of Occupat ional Health - [...] Office Visit [facility] [address] [place] [address] Katalina Colbert NP [address] [place] [address] 05/15/2025 1:00 PM EST Office Visit [facility] [address] [place] [address] Alexa Pulliam CNM [address] [place] [address] documented as of this encounter Procedures Procedure Name Priority Date/Time Associated Diagnosis Comments SCANNED LABS Routine 09/27/2023 9:47 AM EDT documented in this encounter Results * SCANNED LABS (09/27/2023 9:47 AM EDT) Maninder Holt DO LAB CHG PERFORMABLES Final Re sult documented in this encounter Visit Diagnoses Not on filedocumented in this encounter Care Teams Toe Pounder Relationship Specialty Start Date End Date Kervin Stevens MD [address] [place] [address] PCP - General Family Medicine 06/01/23 Katalina Colbert NP [address] [place] [address] Nurse Practitioner Family Medicine 03/06/23 documented as of this encounter
--- OUTSIDE RECORDS SUMMARY | 2025-01-30 13:26 | XMS_ITS | Encounter Summary ---
Author Organization [facility] Address [address] [place] [address] Care Team Providers Care Mysql Database Developer Name Role Phone Katalina Colbert 3RD PRESSMAN Unavailable [phone] Kervin Stevens MD Primary Care Provider [phone] Encounter Details Date Type Department Care Team (Late st Contact Info) Description 06/09/2023 Abstract [facility] [address] [place] [address] Katalina Colbert NP [address] [place] [address] Social History Tobacco Use Types Packs/Day Years [...] How often do you attend chur or methodist services? More than 4 times per year 06/02/2023 Do you belong to any clubs o r organizations such as synagogue groups, unions, fraternal or athletic groups, or [...] medical care, and heating? Somewhat hard 06/02/2023 [facility] of Occupat ional Health [...] Office Visit [facility] [address] [place] [address] Katalina Colbert NP [address] [place] [address] 05/15/2025 1:00 PM EST Office Visit [facility] [address] [place] [address] Alexa Pulliam CNM [address] [place], [place] [address] documented as of this encounter Visit Diagnoses Not on filedocumented in this encounter Care Teams Mysql Database Developer Relationship Specialty Start Date End Date Kervin Stevens MD [address] [place] [address] PCP - General Family Medicine 06/01/23 Katalina Colbert NP [address] [place] [address] Nurse Practitioner Family Medicine 03/06/23 documented as of this encounter
--- OUTSIDE RECORDS SUMMARY | 2025-01-30 13:26 | XMS_ITS | Encounter Summary ---
Author Organization [facility] Address [address] [place] [address] Care Team Providers Care Lawyer Probate Name Role Phone Katalina Colbert COMPLEX CARE NURSE Unavailable [phone] Kervin Stevens MD Primary Care Provider [phone] Reason for Visit * Reason Comments Med Refill Encounter Details Date Type Department Care Team (Late st Contact Info) Description 08/03/2023 Refill [facility] [address] [place] [address] Katalina Colbert, COMPLEX CARE NURSE [address] [place] [address] Anxiety and depression (Primary Dx); Mixed hyperlipidemia Social History Tobacco Use Types Packs/Day Years [...] week 06/02/2023 How often do you attend [facility] or buddhist services? More than 4 times [...] medical care, and heating? Somewhat hard 06/02/2023 [facility] of Occupat ional Health - Occupational Stress [...] the money to buy more. Never true 12/28/20 23 Within the past 12 months, t [...] place to sleep or slept in a fpc (including now)? No 06/02/2023 Comments Unknown Sex [...] Office Visit [facility] [address] [place] [address] Katalina Colbert NP [address] [place] [address] 05/15/2025 1:00 PM EST Office Visit [facility] [address] [place] [address] Alexa Pulliam CNM [address] [place] [address] documented as of this encounter Visit Diagnoses Diagnosis Anxiety and depression- Primary Mixed hyperlipidemia Mixed hyperlipidemia documented in this encounter Care Teams Lawyer Probate Relationship Specialty Start Date End Date Kervin Stevens MD [address] [place] [address] PCP - General Family Medicine 06/01/23 Katalina Colbert NP [address] [place] [address] Nurse Practitioner Family Medicine 03/06/23 documented as of this encounter
--- OUTSIDE RECORDS SUMMARY | 2025-01-30 13:31 | XMS_ITS | CCD ---
Author Organization [facility] Care Team Providers Care [employer] Specialist Name Role Phone FilemonKatalina Catina Primary Care Provider Aichholz TARIK, Katalina Catina Primary Care Provider Zion Pringle MD Unavailable Aicholz TECHNICAL SOLUTIONS ENGINEER, Katalina Catina Primary Care Provider Zion Pringle MD Unavailable [phone] Aichholz TECHNICAL SOLUTIONS ENGINEER, Katalina Catina Primary Care Provider [phone] Aichholz TECHNICAL SOLUTIONS ENGINEER, Katalina Catina Primary Care Provider Zion Pringle MD Unavailable DR WILLY PRINGLE Consulting Unavailable AICHHOLZ, TECHNICAL SOLUTIONS ENGINEER KATALINA Primary Care Unavailable DR WILLY PRINGLE Attending Unavailable DR WILLY PRINGLE Admitting Unavailable MARTINA YAN Consulting Unavailable DR GEN CERVANTES Attending UnavailDR GEN Hoover Admitting Unavailabl e AICHHOLZ, TECHNICAL SOLUTIONS ENGINEER KATALINA Primary Care Unavailable Deonna Cherry Consulting Unavailable DORENE ., YULIYA Consulting Unavailable AICHHOLZ, TECHNICAL SOLUTIONS ENGINEER KATALINA Consulting Unavailable AICHHOLZ, TECHNICAL SOLUTIONS ENGINEER KATALINA Primary Care Unavailable AICHHOLZ, TECHNICAL SOLUTIONS ENGINEER KATALINA Attending Unavailable AICHHOLZ, TECHNICAL SOLUTIONS ENGINEER KATALINA Admitting Unavailable AICHHOLZ, TECHNICAL SOLUTIONS ENGINEER KATALINA Consulting Unavailable AICHHOLZ, TECHNICAL SOLUTIONS ENGINEER KATALINA Primary Care Unavailable AICHHOLZ, TECHNICAL SOLUTIONS ENGINEER KATALINA Attending Unavailable AICHHOLZ, TECHNICAL SOLUTIONS ENGINEER KATALINA Admitting Unavailable AICHHOLZ, TECHNICAL SOLUTIONS ENGINEER KATALINA Consulting Unavailable AICHHOLZ, TECHNICAL SOLUTIONS ENGINEER KATALINA Primary Care Unavailable AICHHOLZ, TECHNICAL SOLUTIONS ENGINEER KATALINA Attending Unavailable AICHHOLZ, TECHNICAL SOLUTIONS ENGINEER KATALINA Admitting Unavailable DR JILL JEAN Consulting Unavailable ENGELER, DR WILLY Marlow Consulting Unavailable AICHHOLZ, TECHNICAL SOLUTIONS ENGINEER KATALINA Primary Care Unavailable PINO, DR WILLY Marlow Attending Unavailable ENGELEAnahi, DR WILLY Marlow Admitting Unavailable AICHHOLZ, TECHNICAL SOLUTIONS ENGINEER KATALINA Consulting Unavailable AICHHOLZ, TECHNICAL SOLUTIONS ENGINEER KATALINA Attending Unavailable AICHHOLZ, TECHNICAL SOLUTIONS ENGINEER KATALINA Admitting Unavailable PINO, DR WILLY Marlow Consulting Unavailable AICHHOLZ, TECHNICAL SOLUTIONS ENGINEER KATALINA Primary Care Unavailable PINO, DR WILLY Marlow Attending Unavailable PINO, DR WILLY Marlow Admitting Unavailable AICHHOLZ, TECHNICAL SOLUTIONS ENGINEER KATALINA Consulting Unavailable AICHHOLZ, TECHNICAL SOLUTIONS ENGINEER AKTALINA Primary Care Unavailable AICHHOLZ, TECHNICAL SOLUTIONS ENGINEER KATALINA Attending Unavailable AICHHOLZ, TECHNICAL SOLUTIONS ENGINEER KATALINA Admitting Unavailable AICHHOLZ, TECHNICAL SOLUTIONS ENGINEER KATALINA Consulting Unavailable AICHHOLZ, TECHNICAL SOLUTIONS ENGINEER KATALINA Primary Care Unavailable AICHHOLZ, TECHNICAL SOLUTIONS ENGINEER KATALINA Attending Unavailable AICHHOLZ, TECHNICAL SOLUTIONS ENGINEER KATALINA Admitting Unavailable Aichholz OPTICAL GLASS INSPECTOR, Katalina Unavailable Kervin Gunter MD Primary Care Provider RAMONITA PHILLIPS Attending Unavailable KERVIN GUNTER Referring Unavailable JANI, KERVIN Primary Care Unavailable LATOSHA CORBETT Admitting Unavailable LATOSHA CORBETT Attending Unavailable LATOSHA CORBETT Referring Unavailable KERVIN GUNTER Primary Care Unavailable LIV AZAR Attending Unavailable JANI, KERVIN Primary Care Unavailable LATOSHA CORBETT Attending Unavailable ARIC LATOSHA E Referring Unavailable JANI, KERVIN Primary Care Unavailable Aichholz TECHNICAL SOLUTIONS ENGINEER, Katalina Dominique Primary Care Provider Aichholz OPTICAL GLASS INSPECTOR, Katalina Unavailable Kervin Gunter MD Primary Care Provider [phone] Zion Pringle MD Unavailable Kervin Gunter MD Primary Care Provider [phone] Zion PRINGLE Referring Unavailable AICHHOLJaskaran, KATALINA CATINA Primary Care Unavailable Zion PRINGLE Attending Unavailable Zion PRINGLE Referring Unavailable Zion PRINGLE Attending Unavailable AICHHOLZ, KATALINA CATINA Primary Care Unavailable Zion PRINGLE Referring Unavailable Zion PRINGLE Attending Unavailable KATALINA COLBERT Primary Care Unavailable Zion PRINGLE Referring Unavailable Zion PRINGLE Attending Unavailable KATALINA COLBERT Primary Care Unavailable WILLY HUA Attending Unavailable SARAH KHAN F Attending Unavailable KATALINA COLBERT Attending Unavailable KATALINA COLBERT Attending Unavailable RITA PULLIAM Attending Unavailable RTIA PULLIAM Attending Unavailable FILEMON, KATALINA Attending Unavailable SARAH KHAN F Attending Unavailable FILEMON, KATALINA Attending Unavailable Allergies Allergy Classification Reported Allergen(s) Allergy Type Date of Onset Reaction(s) Facility (20 sources) Adhesive agent; Translations: [ADHESIVE] Drug Allergy 2 Rash [facility] (1 source) Desonide Drug Allergy [facility] (4 sources) Latex; Translations: [LATEX] Drug allergy (disorder) 9 [facility] (20 sources) Latex Allergy to substance 9 Other, [facility] Work Phone: (20 sources) Wound Dressing Adhesive Drug Allergy 2 [facility] (2 sources) Latex Propensity to adverse reactions to drug 9 [facility] Medications Current Medications Medication Drug Class(es) Dates Sig (Normalized) Sig (Original) [id number] 200 actuat albuterol 0.09 mg/actuat metered dose inhaler (20 sources) beta2-Adrenergic Agonist Start: 09-12-2018 albuterol (PROVENTIL HFA;VENTOLIN HFA) 90 mcg/actuation inhaler 1 09/12/2018 Active Start: 09-12-2018 albuterol (PRO VENTIL HFA;VENTOLIN HFA) 90 mcg/actuation inhaler amoxicillin 875 mg / clavulanate 125 mg oral tablet (1 source) Penicillin-class Antibacterial Start: 07-07-2023 End: 07-17-2023 take 1 tablet by mouth in the morning amoxicillin-clavulanate (Augmentin) 875-125 MG tablet Indications: Acute non-recurrent sinusitis of other sinus Take 1 tablet (875 mg) by mouth in the morning and 1 tablet (875 mg) before bedtime. Do all this for 10 days. Take with food. 20 tablet 0 07/07/2023 07/17/2023 Active aspirin 81 mg delayed release oral tablet (20 sources) Platelet Aggregation Inhibitor, Nonsteroidal Anti-inflammatory Drug Start: 01-25-2024 End: 12-16-2024 take 1 tablet by mouth once daily aspirin (Aspirin Low Dose) 81 MG EC tablet Indications: Uncontrolled type 2 diabetes mellitus 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, with long-term current use of insulin (HCC) Take 1 tablet (81 mg) by mouth Daily 90 tablet 2 09/17/2024 12/16/2024 Active take 1 tablet by mouth once nano y aspirin (BABY ASPIRIN) 81 mg chewable tablet Take 81 mg by mouth once daily. Active take 1 tablet by mouth in the mo rning aspirin (ASPIR) 81 MG EC tablet Take 1 tablet by mouth in the morning. 0 Active Comment on above: Take 81 mg by mouth once daily. cetirizine hydrochloride 10 mg oral tablet (20 sources) Histamine-1 Receptor Antagonist Start: 07-04-19 End: 10-02-19 24 take 1 tablet by mouth in the morning cetirizine (ZyrTEC) 10 MG tablet Indications: Allergic rhinitis, unspecified seasonality, unspecified trigger Take 1 tablet (10 mg) by mouth in the morning. 90 tablet 1 07/04/2023 10/02/2023 Active Comment on above: Take 10 mg by mouth once daily. cholecalciferol 0.025 mg oral capsule (20 sources) Vitamin D Start: 07-17-19 25 End: 01-13-20 25 take 1 capsule by mouth once daily cholecalciferol (Vitamin D-3) 25 MCG (1000 UT) capsule Indications: Vitamin D deficiency, unspecified Take 1 capsule (25 mcg) by mouth Daily 90 capsule 1 10/14/2024 01/12/2025 Active Start: 02-23-2024 End: 05-23-2024 take 1 capsule by mouth once daily cholecalciferol (Vitamin D-3) 25 MCG (1000 UT) capsule Indications: Vitamin D deficiency Take 1 capsule (25 mcg) by mouth Daily 90 capsule 1 02/23/2024 05/23/2024 Active Start: 11-27-2023 End: 02-23-2024 take 1 capsule by mouth once daily cholecalciferol (Vitamin D-3) 25 MCG (1000 UT) capsule Take 1,000 Units by mouth Daily 11/27/2023 02/23/2024 Discontinued take 1 tablet by lukas th once daily Cholecalciferol, Vitamin D3, (VITAMIN D) 1,000 unit Tab Take 1,000 Units by mouth once daily. Active cholecalciferol, vitamin D3, (VITAMIN D3) 1,000 units tablet Take 1 tablet (1,000 Units total) by mouth. Active take 1 capsule by mo uth in the morning cholecalciferol (Vitamin D-3) 25 MCG (1000 UT) capsule Take 1 capsule by mouth in the morning. 0 Active Comment on above: Take 1,000 Units by mouth once daily. doxycycline hyclate 100 mg oral tablet (13 sources) Tetracycline-cla ss Drug Start: 11-05-2024 End: 11-15-2024 take 1 tablet by mouth in the morning doxycycline (Vibra-Tabs) 100 MG tablet Indications: Hidradenitis suppurativa of multiple sites Take 1 tablet (100 mg) by mouth in the morning and 1 tablet (100 mg) before bedtime. Do all this for 10 days. Take with a full glass of water and do not lie down for at least 30 minutes after. 20 tablet 11/05/2024 11/15/2024 Active Start: 02-08-2024 End: 02-18-2024 doxycycline (Vibra-Tabs) 100 MG tablet Indications: Hidradenitis suppurativa of multiple sites Take 1 tablet (100 mg) by mouth in the morning and 1 tablet (100 mg) before bedtime. Do all this for 10 days. Take with a full glass of water and do not lie down for at least 30 minutes after.. 20 tablet 02/08/2024 02/18/2024 Active take 500 mg by mouth once daily DOXYCYCLINE HYCLATE ORAL Take 500 mg by mouth once daily. 0 Active Comment on above: Take 500 mg by mouth once daily. DULoxetine 60 mg delayed release oral capsule (20 sources) Serotonin and Norepinephrine Reuptake Inhibitor Start: 3 End: 5 take 1 capsule by mouth once daily DULoxetine (Cymbalta) [address] capsule Indications: Anxiety and depression Take 1 capsule (60 mg) by mouth Daily 90 capsule 1 01/08/2025 04/08/2025 Active Start: 09-13-2020 DULoxetine (CY MBALTA) 30 mg capsule 09/13/2020 Active Comment on above: Take 60 mg by mouth once daily. ethinyl estradiol 0.0025 mg / norethindrone acetate 0.5 mg oral tablet (11 sources) Estrogen Start: 12-12-19 End: 01-23-20 norethindrone-ethiny l estradiol (Femhrt) 0.5-2.5 MG-MCG tablet Indications: Hot flashes Take 1 tablet by mouth Daily 90 tablet 1 01/22/2025 01/22/2026 Active fexofenadine hydrochloride 180 mg oral tablet (20 sources) Histamine-1 Receptor Antagonist Start: 09-08-19 End: 04-09-20 take 1 tablet by mouth once daily as needed fexofenadine (Yolanda) 180 MG tablet Indications: Allergic rhinitis, unspecified seasonality, unspecified trigger Take 1 tablet (180 mg) by mouth Daily as needed (Allergies) 90 tablet 1 01/09/2025 04/09/2025 Active fluticasone propionate 0.05 mg/actuat metered dose nasal spray (20 sources) Corticosteroid Start: 08-25-19 End: 08-08-19 take 2 spray(s) nasal route once daily fluticasone (Flonase) 50 MCG/ACT nasal spray Indications: Allergic rhinitis, unspecified seasonality, unspecified trigger Administer 2 sprays into each nostril Daily 48 g 1 05/09/2024 Active Start: 07-30-2022 take 2 spray(s) nasa l route in the morning fluticasone (Flonase) 50 MCG/ACT nasal spray Administer 2 sprays into each nostril in the morning. 0 07/30/2022 Active Start: 05-01-2018 take 1 spray(s) nasa l route in the morning fluticasone (FLONASE) 50 mcg/actuation nasal spray Administer 1 spray into each nostril in the morning. 05/01/2018 Active hydroCHLOROthiazide 12.5 mg oral capsule (20 sources) Thiazide Diuretic Start: 07-17-2024 End: 04-08-2025 take 1 capsule by mouth once daily hydroCHLOROthiazide (Microzide) 12.5 MG capsule Indications: Essential hypertension , Bilateral lower extremity edema Take 1 capsule (12.5 mg) by mouth Daily 90 capsule 1 01/08/2025 04/08/2025 Active Start: 05-01-2018 End: 05-09-2024 take 1 capsule by mouth once daily in the morning hydroCHLOROthiazide (Microzide) 12.5 MG capsule Indications: Essential hypertension (CMS/HCC) , Bilateral lower extremity edema Take 1 capsule (12.5 mg) by mouth Daily Take 1 capsule (12.5 mg) by mouth in the morning. 90 capsule 1 08/25/2023 Active hydroCHLOROthiaz mando (HYDRODIURIL, ESIDRIX) 12.5 mg tablet q 24 HR. Active End: 08-13-2024 take 1 tablet by mouth once daily hydroCHLOROthiazide (HYDRODiuril) 12.5 MG tablet Take 1 tablet by mouth Daily 08/13/2024 Discontinued Comment on above: Take 12.5 mg by mout h once daily. q 24 HR. ibuprofen 800 mg oral tablet (20 sources) Nonsteroidal Anti-inflammatory Drug Start: End: take 1 tablet by mouth once at mealtime ibuprofen 800 MG tablet Indications: Other chronic pain Take 1 tablet (800 mg) by mouth every 12 (twelve) hours Take with food 180 tablet 1 01/09/2025 04/09/2025 Active Start: 05-09-2024 End: 08-13-2024 take 1 tablet by mouth once at mealtime ibuprofen 800 MG tablet Indications: Other chronic pain Take 1 tablet (800 mg) by mouth every 12 (twelve) hours Take with food 180 tablet 1 05/09/2024 08/13/2024 Active Start: 01-22-2024 End: 05-09-2024 ibuprofen 800 MG tablet Take 800 mg by mouth every 12 (twelve) hours if needed for moderate pain 01/22/2024 05/09/2024 Discontinued (Reorder) take 1 tablet by lukas th every six hours as needed ibuprofen (MOTRIN) 200 mg tablet Take 200 mg by mouth every 6 hours as needed. Active take 1 tablet by lukas th twice daily as needed ibuprofen 800 MG tablet Take 1 tablet by mouth 2 (two) times a day as needed 0 Active Comment on above: Take 200 mg by mouth every 6 hours as needed. 3 ml insulin glargine 100 unt/ml pen injector (20 sources) Insulin Analog Start: 09-07-2024 End: 03-06-2025 insulin glargine (Lantus SoloStar) 100 UNIT/ML pen Indications: Type 2 diabetes mellitus 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, unspecified whether penitentiary insulin use (HCC) Inject 60 Units under the skin at bedtime 54 mL 1 09/07/2024 03/06/2025 Active Start: 06-08-2024 End: 09-07-2024 Lantus SoloStar 100 UNIT/ML pen Indications: Type 2 diabetes mellitus 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, unspecified whether rat exterminator insulin use (CMS/HCC) INJECT 60 UNITS SUBCUTANEOUSLY EVERY DAY AT BEDTIME 45 mL 06/08/2024 09/07/2024 Discontinued (Reorder) Start: 05-01-2018 insulin glargi ne (LANTUS SOLOSTAR U-100 INSULIN) 100 unit/mL (3 mL) Lantus Solostar U-100 Insulin 100 unit/mL (3 mL) subcutaneous pen 05/01/2018 Active Start: 05-01-2018 insulin glargi ne (LANTUS SOLOSTAR U-100 INSULIN) 100 unit/mL (3 [...] Insulin 100 unit/mL (3 mL) subcutaneous pen insulin glargine-yfgn (Semglee-yfgn) 100 UNIT/ML pen (20 sources) Start: 12-08-2023 insulin glargine-yfgn (Semglee-yfgn) 100 UNIT/ML pen Inject 60 Units under the skin at bedtime 12/08/2023 Active 3 ml insulin lispro 100 unt/ml pen injector (20 sources) Insulin Analog Start: 03-23-2024 insulin lispro (HumaLOG) 100 UNIT/ML injection Indications: Type 2 diabetes mellitus 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, unspecified whether rat exterminator insulin use (HCC) INJECT 15-20-25 UNITS ACCORDING TO MEAL SIZE PLUS ISS #3 (MAX DAILY DOSE OF 100 UNITS) 105 mL 03/23/2024 Active Start: 04-03-2023 insulin lispro (HumaLOG) 100 UNIT/ML injection Inject 1 Units under the skin in the morning and 1 Units at noon and 1 Units in the evening. Inject with meals. INJECT 15-20-25 UNITS ACCORDING TO MEAL SIZE PLUS ISS #3 (MAX DAILY DOSE OF 100 UNITS) . 04/03/2023 Active insulin lispro ( HumaLOG) 100 unit/mL insulin pen INJECT 15-20-25 UNITS ACCORDING TO MEAL SIZE PLUS ISS #3 (MAX DAILY DOSE OF 100 UNITS) Active levothyroxine sodium 0.2 mg oral tablet (20 sources) l-Thyroxine Start: 09-09-2022 End: 11-23-2024 take 1 tablet by mouth before mealtime levothyroxine (Synthroid, Levoxyl) 200 MCG tablet Take 1 tablet by mouth in the morning. Take before meals. 05/04/2023 Active Start: 07-01-2021 End: 11-23-2022 take [...] daily. losartan potassium 100 mg oral tablet (20 sources) Angiotensin 2 Receptor Janell Start: 4 End: take 1 tablet by mouth once daily losartan (Cozaar) 100 MG tablet Indications: Essential hypertension Take 1 tablet (100 mg) by mouth Daily 90 tablet 1 01/08/2025 04/08/2025 Active Start: 04-11-2023 take 1 tablet by lukas th in the morning losartan (Cozaar) 100 MG tablet Take 1 tablet by mouth in the morning. 0 04/11/2023 Active Start: 05-01-2018 losartan (COZA AR) 50 mg tablet q 24 HR. 05/01/2018 Active Start: 05-01-2018 take 2 tablets by mo uth in the morning losartan (COZAAR) 50 mg tablet Take 2 tablets (100 mg total) by mouth in the morning. 05/01/2018 Active Comment on above: q 24 HR. metFORMIN hydrochloride 1000 mg oral tablet (20 sources) Biguanide Start: 12-23-2024 End: 04-08-2025 take 1 tablet by mouth in the morning metFORMIN (Glucophage) 1000 MG tablet Indications: Uncontrolled type 2 diabetes mellitus 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, with long-term current use of insulin (HCC) Take 1 tablet (1,000 mg) by mouth in the morning and 1 tablet (1,000 mg) before bedtime. 180 tablet 1 01/08/2025 04/08/2025 Active Start: 05-01-2018 End: 09-10-2023 take 1 tablet by mouth in the morning metFORMIN (Glucophage) 1000 MG tablet Indications: Uncontrolled type 2 diabetes mellitus 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, with long-term current use of insulin (HCC) Take 1 tablet (1,000 mg) by mouth in the morning and 1 tablet (1,000 mg) before bedtime. 180 tablet 1 08/25/2023 Active Comment on above: metformin 1,000 mg t ablet Take 1 tablet twice a day by oral route for 90 days. MOUNJARO 5 mg/0.5 mL pen injector (2 sources) MOUNJARO 5 mg/0. 5 mL pen injector once a week. Active MOUNJARO 5 mg/0. 5 mL pen injector once a week. 0 Active Mounjaro 5 MG/0.5ML solution pen-injector (1 source) Start: 05-04-2023 Mounjaro 5 MG/ 0.5ML solution pen-injector Inject 1 Syringe under the skin 1 (one) time per week 0 05/04/2023 Active multivitamin (THERAGRAN) tab let (2 sources) multivitamin (TH ERAGRAN) tablet Take 1 tablet by mouth. Active multivitamin (TH ERAGRAN) tablet Take 1 tablet by mouth. 0 Active multivitamin tablet (20 sources) take 1 tablet by lukas th once daily multivitamin tablet Take 1 tablet by mouth once daily. Active take 1 tablet by mouth once nano y multivitamin tablet Take 1 tablet by mouth once daily. 0 Active Comment on above: Take 1 tablet by lukas th once daily. simvastatin 5 mg oral tablet (20 sources) HMG-CoA Reductase Inhibitor Start: 8 End: take 1 tablet by mouth at bedtime simvastatin (Zocor) 5 MG tablet Indications: Mixed hyperlipidemia Take 1 tablet (5 mg) by mouth at bedtime 90 tablet 1 01/09/2025 04/09/2025 Active Start: 05-01-2018 take 1 tablet by lukas th once daily simvastatin (ZOCOR) 5 mg tablet Take 1 tablet (5 mg total) by mouth nightly. 0 05/01/2018 Active Comment on above: q 24 HR. SITagliptin 100 mg oral tablet (20 sources) Dipeptidyl Peptidase 4 Inhibitor Start: take 1 tablet by mouth once daily SITagliptin (Januvia) 100 MG tablet Indications: Type 2 diabetes mellitus 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, unspecified whether rat exterminator insulin use (HCC) Take 1 tablet by mouth once daily 90 tablet 1 01/08/2025 Active Start: 06-04-2024 take 1 tablet by lukas th once daily SITagliptin (Januvia) 100 MG tablet Indications: Type 2 diabetes mellitus 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, unspecified whether rat exterminator insulin use (HCC) Take 1 tablet by mouth once daily 90 tablet 1 12/05/2024 Active Start: 12-08-2023 take 1 tablet by lukas th once daily Januvia 100 MG tablet Take 100 mg by mouth Daily 12/08/2023 Active sod sulf-pot chloride-mag sulf 1.479-0.188- 0.225 gram tablet (1 source) Start: 09-13-2023 sod sulf-pot chloride-mag sulf 1.479-0.188- 0.225 gram tablet Indications: Encounter for colonoscopy in patient with family history of colon cancer Please see instructional sheet given by physicians office. 24 tablet 0 09/13/2023 Active Tirzepatide (Mounjaro) 5 MG/0.5ML solution pen-injector (12 sources) End: 05-09-2024 inject 1 dose by subcutaneous injection every week Tirzepatide (Mounjaro) 5 MG/0.5ML solution pen-injector Inject 1 Dose under the skin 1 (one) time per week 05/09/2024 Discontinued (Therapy completed) inject 1 dose by sub cutaneous injection every week Tirzepatide (Mounjaro) 5 MG/0.5ML solution pen-injector Inject 1 Dose under the skin 1 (one) time per week Active tiZANidine 4 mg oral tablet (20 sources) Central alpha-2 Adrenergic Agonist Start: 09-14-2020 End: 04-08-2025 tiZANidine (Zanaflex) 4 MG tablet Indications: Chronic pain syndrome Take 1 tablet (4 mg) by mouth as needed at bedtime for muscle spasms 90 tablet 1 01/08/2025 04/08/2025 Active Completed/Discontinued Medications Medication Drug Class(es) Dates Sig (Normalized) Sig (Original) acetaminophen 325 mg / HYDROcodone bitartrate 5 mg oral tablet (7 sources) Opioid Agonist Start: 12-12-2012 take 1 tablet by mouth every eight hours as needed HYDROcodone-aceta minophen 5-325 mg per tablet Take 1 tablet by mouth every 8 hours as needed for Pain. 40 tablet 0 12/12/2012 Active Comment on above: [facility] as needed for Pain. Ethinyl Estradiol / norgestimate (7 sources) Progestin, Estrogen Norgestimate -Ethi nyl Estradiol (TRI-SPRINTEC) 0.18/0.215/0.25 mg-35 mcg (28) Tab Take by mouth. 0 Active Comment on above: Take by mouth. fluconazole 150 mg oral tablet (14 sources) Azole Antifungal Start: 04-09-2024 End: 08-13-2024 fluconazole (Diflucan) 150 MG tablet Indications: Yeast infection of the vagina One time dose, repeat again in 3 days 2 tablet 04/09/2024 08/13/2024 Discontinued (Therapy completed) furosemide 20 mg oral tablet (7 sources) Loop Diuretic Start: 05-11-2012 take 3 tablets by mouth once daily furosemide (LASIX) 20 mg tablet Take 3 tablets by mouth once daily. 0 05/11/2012 Active Comment on above: Take 3 tablets by mo [facility] once daily. GLUCOSAMINE/CHONDROITI N SULF A (GLUCOSAMINE-CHONDROIT IN ORAL) (7 sources) GLUCOSAMINE/BRIDGER D ROITIN SULF A (GLUCOSAMINE-BRIDGER DROITIN ORAL) Take by mouth. 0 Active Comment on above: Take by mouth. metFORMIN hydrochloride 1000 mg / SITagliptin 50 mg oral tablet (7 sources) Biguanide, Dipeptidyl Peptidase 4 Inhibitor Start: 05-11-2012 take 1 tablet by mouth twice daily at mealtime sitaGLIPtin-metFO RMIN (JANUMET) 50-1,000 mg per tablet Take 1 tablet by mouth twice daily with meals. 0 05/11/2012 Active Comment on above: Take 1 tablet by lukas th twice daily with meals. olmesartan medoxomil 20 mg oral tablet (7 sources) Angiotensin 2 Receptor Janell Start: 05-11-2012 take 1 tablet by mouth once daily olmesartan (BENICAR) 20 mg tablet Take 1 tablet by mouth once daily. 0 05/11/2012 Active Comment on above: Take 1 tablet by lukas th once daily. Abkqq-3-ETB-EPA-Fish Oil 1,200 (144-216) mg cap (7 sources) Ondkz-7-ASX-EPA- F ronaldo Oil 1,200 (144-216) mg cap Take by mouth. 0 Active Comment on above: Take by mouth. pilocarpine hydrochloride 5 mg oral tablet (3 sources) Cholinergic Receptor Agonist Start: 06-04-2020 End: 02-12-2022 take 1 tablet by mouth three times daily pilocarpine (SALAGEN) 5 mg tablet Indications: Thyroid cancer (HCC) , Malignant neoplasm of thyroid gland (HCC) Take 1 tablet by mouth three times daily. 15 tablet 0 06/04/2020 02/12/2022 Discontinued Comment on above: Take 1 tablet by lukas th three times daily. sulfamethoxazole 800 mg / trimethoprim 160 mg oral tablet (2 sources) Dihydrofolate Reductase Inhibitor Antibacterial, Sulfonamide Antimicrobial Start: 04-10-2024 End: 04-20-2024 take 1 tablet by mouth once sulfamethoxazole- trimethoprim (Bactrim DS) 800-160 MG per tablet Indications: Hidradenitis suppurativa of multiple sites Take 1 tablet by mouth every 12 (twelve) hours for 10 days 20 tablet 04/10/2024 04/20/2024 Problems Active Problems Problem Classification Problem Date Documented Date Episodic/Chronic Administrative/social admission (4 sources) Patient encounter status; Translations: [Dietary counseling and surveillance] 03-08-2024 Episodic Anxiety disorders (20 sources) Mixed anxiety and depressive disorder; Translations: [Anxiety disorder, unspecified] Onset: 06-09-2023 06-09-2023 Chronic Cancer of thyroid (20 sources) Malignant tumor of thyroid gland; Translations: [Malignant neoplasm of thyroid gland] Onset: 06-04-2020 Resolved: 08-13-2024 Chronic Cancer of thyroid (7 sources) History of malignant neoplasm of thyroid; Translations: [Personal history of malignant neoplasm of thyroid] Onset: 11-21-2024 03-24-2023 Episodic Cancer; other and unspecified primary (1 source) Malignant tumor of thymus; Translations: [Malignant neoplasm of thymus] Chronic Complications of surgical procedures or medical care (20 sources) Postoperative hypothyroidism; Translations: [Postprocedural hypothyroidism] Onset: 08-03-2023 08-03-2023 Chronic Diabetes mellitus with complications (20 sources) Type 2 diabetes mellitus 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; Translations: [Insulin treated type 2 diabetes mellitus] Onset: 01-29-2022 Chronic Diabetes mellitus without complication (5 sources) Type 2 diabetes mellitus without complications; Translations: [TYPE 2 DM WITHOUT COMPLICATIONS] Onset: 06-22-2022 Chronic Disorders of lipid metabolism (20 sources) Mixed hyperlipidemia; Translations: [Mixed hyperlipidemia] Onset: 04-24-2020 08-03-2023 Chronic Essential hypertension (20 sources) Essential hypertension; Translations: [Essential (primary) hypertension] Onset: 06-09-2023 06-09-2023 Chronic Nonspecific chest pain (20 sources) Chest pain; Translations: [Chest pain, unspecified] Onset: 11-13-2024 11-13-2024 Episodic Nutritional deficiencies (20 sources) Vitamin D deficiency; Translations: [Vitamin D deficiency, unspecified] Onset: 08-25-2023 08-25-2023 Chronic Osteoarthritis (20 sources) Arthritis of right knee; Translations: [Unilateral primary osteoarthritis, right knee] Onset: 08-03-2023 08-03-2023 Chronic Other aftercare (4 sources) Long-term current use of insulin; 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] 03-08-2024 Episodic Other and unspecified benign neoplasm (1 source) Polyp of colon; Translations: [Polyp of colon] Onset: 09-27-2023 Episodic Other lower respiratory disease (2 sources) Shortness of breath; Translations: [Shortness of breath] Onset: 01-14-2025 Episodic Other nervous system disorders (20 sources) Chronic pain; Translations: [Other chronic pain] Onset: 05-09-2024 05-09-2024 Chronic Other nervous system disorders (2 sources) Chronic pain syndrome; Translations: [Chronic pain syndrome] 05-12-2024 Chronic Other nutritional; endocrine; and metabolic disorders (4 sources) Hypercalcemia; Translations: [HYPERCALCEMIA] Onset: 02-18-2022 Chronic Other nutritional; endocrine; and metabolic disorders (20 sources) Severe obesity; Translations: [Class 3 severe obesity due to excess calories with serious comorbidity and body mass index (BMI) of 50.0 to 59.9 in adult] Onset: 12-12-2023 12-12-2023 Chronic Other screening for suspected conditions (not mental disorders or infectious disease) (20 sources) Encounter for screening mammogram for malignant neoplasm of breast; Translations: [Encounter for screening for malignant neoplasm of colon] Onset: 04-27-2022 Episodic Other upper respiratory disease (20 sources) Allergic rhinitis; Translations: [Allergic rhinitis, unspecified] Onset: 07-04-2023 07-04-2023 Chronic Residual codes; unclassified (20 sources) Obstructive sleep apnea syndrome; Translations: [Obstructive sleep apnea (adult) (pediatric)] Onset: 08-03-2023 08-03-2023 Chronic Residual codes; unclassified (2 sources) Obstructive sleep apnea (adult) (pediatric); Translations: [Obstructive sleep apnea (adult) (pediatric)] Onset: 01-14-2025 Chronic Residual codes; unclassified (2 sources) Family history of malignant neoplasm of digestive organs; Translations: [Family history of malignant neoplasm of digestive organs] Onset: 09-13-2023 Episodic Residual codes; unclassified (2 sources) Flushing; Translations: [Flushing] 01-22-2025 Episodic Substance-related disorders (1 source) Nicotine dependence, cigarettes, uncomplicated; Translations: [NICOTINE DEPEND CIGARETTES UNCOMP] Onset: 06-22-2022 Chronic Superficial injury; contusion (5 sources) Contusion of right knee; Translations: [Contusion of right knee, initial encounter] Onset: 01-10-2025 01-10-2025 Episodic Thyroid disorders (20 sources) Multinodular goiter; Translations: [Nontoxic multinodular goiter] Onset: 08-03-2023 08-03-2023 Chronic Unclassified (3 sources) CONTACT W/AND (SUSP) EXPOS COVID-19; Translations: [CONTACT W/AND (SUSP) EXPOS COVID-19] Onset: 02-04-2022 Unclassified (1 source) Colon Cancer Screening Onset: 09-13-2023 Unclassified (1 source) family history of colon cancer Onset: 09-27-2023 Unclassified (7 sources) Patient on antidepressant monitoring plan Onset: 01-08-2025 01-08-2025 Unclassified (7 sources) Baseline PHQ-9 Onset: 01-08-2025 01-08-2025 Past or Other Problems Problem Classification Problem Date Documented Da te Episodic/Chronic Mycoses (20 sources) Candidiasis of vagina; Translations: [Yeast infection of the vagina] Onset: 04-09-2024 04-09-2024 Episodic Other aftercare (1 source) intermediate (current) use of aspirin; Translations: [ALF CURRENT USE OF ASPIRIN] Onset: 06-22-2022 Episodic Other aftercare (1 source) 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; Translations: [OTH ALF CURRENT DRUG THERAPY] Onset: 06-22-2022 Episodic Other aftercare (1 source) intermediate (current) use of oral hypoglycemic drugs; Translations: [PLUMBER'S ASSISTANT USE ORAL HYPOGLYCEMIC DX] Onset: 06-22-2022 Episodic Other aftercare (1 source) 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; Translations: [ALF CURRENT USE OF INSULIN] Onset: 06-01-2022 Episodic Other connective tissue disease (20 sources) Biceps tendinitis; Translations: [Bicipital tendinitis, unspecified shoulder] Onset: 11-23-2012 11-23-2012 Episodic Other connective tissue disease (20 sources) Pain in left foot; Translations: [Pain in left foot] Onset: 05-09-2024 05-09-2024 Episodic Other gastrointestinal disorders (20 sources) History of polyp of colon; Translations: [Personal history of other diseases of the digestive system] Onset: 09-08-2023 09-08-2023 Episodic Other non-traumatic joint disorders (20 sources) Hip pain; Translations: [Pain in left hip] Onset: 12-12-2023 12-12-2023 Episodic Other nutritional; endocrine; and metabolic disorders (20 sources) Body mass index 40+ - severely obese; Translations: [Body mass index (BMI) 45.0-49.9, adult] Onset: 06-09-2023 Resolved: 12-12-2023 06-09-2023 Chronic Other skin disorders (20 sources) Hidradenitis suppurativa; Translations: [Hidradenitis] Onset: 02-08-2024 02-08-2024 Episodic Other upper respiratory infections (20 sources) Sinusitis; Translations: [Chronic sinusitis, unspecified] Onset: 10-27-2023 Resolved: 02-08-2024 02-08-2024 Chronic Other upper respiratory infections (20 sources) Acute pharyngitis, unspecified; Translations: [Streptococcal pharyngitis] Onset: 06-20-2022 Resolved: 02-08-2024 Episodic Residual codes; unclassified (1 source) Acquired [...] MALIG NEOPLASM OTH ORGN/SYS] Onset: 05-01-2022 Episodic Residual codes; unclassified (20 sources) Bilateral lower limb edema; Translations: [Localized edema] Onset: 06-12-2023 06-12-2023 Episodic Spondylosis; intervertebral disc disorders; other back [...] Test Name Value Interpretation Reference Range Facility Office Visiton 01-14-2025 Follow-up visit [id number] Bertha Hutchins sa 1965 F Date Provider Department Center 01/14/2025 WILLY KHANNA [facility] Family History Problem Relation Age of Onset Parkinsonism Mother Coronary artery disease Mother Coronary artery disease Father Family Status - Relation Status Age at Mother Father Alive Level of Service:[id number] MD OFFICE/OUTPATIENT [facility] 60 MINUTES Normal [facility] Orders Onlyon 01-14-2025 Orders Only [id number] Bertha Hutchins sa Luis 1965 F Date Provider Department [place] 01/14/2025 [id number], HISTORICAL [facility] Family History Problem Relation Age of Onset Parkinsonism Mother Coronary artery disease Mother Coronary artery disease Father Family Status - Relation Status Age at Mother Father Alive Normal [facility] NM LACEY PERF SPECT REST STRon 01-11-2025 [place] [address] Nuclear Medicine Report Signed Patient: KATALINA HUTCHINS MR#: [id number] : 1965 Acct:[id number] Age/Sex: 59 / F ADM Date: 01/01/25 Loc: CARD Attending Dr: Katalina Colbert NP Ordering Physician: Katalina Colbert NP Date of Service: 01/01/25 Procedure(s): NM lacey perf SPECT rest str Accession Number(s): [id number] cc: Katalina Colbert NP Patient Name: KATALINA HUTCHINS MR#: [id number] : 1965 Exam Date: 01/01/2025 Ordering Doctor: TARIK COLBERT CNP RADIOLOGY REPORT PROCEDURE: NM LACEY PERF SPECT REST STR COMPARISON: None. INDICATIONS: [...] pending per attending physician [facility] . For more details please [...] Andrews M.D. 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: [facility] Radiology, Radiologi MD [facility] - 01/11/2025 [place] [address] Nuclear Medicine Report Signed Patient: KATALINA HUTCHINS MR#: [id number] : 1965 Acct:[id number] Age/Sex: 59 / F ADM Date: 01/01/25 Loc: CARD Attending Dr: Katalina Colbert NP Ordering Physician: Katalina Colbert NP Date of Service: 01/01/25 Procedure(s): NM lacey perf SPECT rest str Accession Number(s): [id number] cc: Katalina Colbert NP Patient Name: KATALINA HUTCHINS MR#: [id number] : 1965 Exam Date: 01/01/2025 Ordering Doctor: TARIK COLBERT CNP RADIOLOGY REPORT PROCEDURE: NM LACEY PERF SPECT REST STR COMPARISON: None. INDICATIONS: [...] pending per attending physician [facility] . For more details please [...] Dictated By: Liliam Andrews M.D. 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 Voicemail from pt was received this am from pt stating she had her phone in the other room. Per Dr Pringle, ok to let pt know labs look good and he's like to recheck in 1 year. LM for pt to CB to explain. ARMANI- please sign pended lab orders for 1 year. SHAYLA Prasad Angela, RN 11/23/2024 1:04 PM Signed PSS- please schedule 1 year phone visit with ARMANI. Please mail this appt to pt and also mail patient copy of all lab orders. Thank you SHAYLA Prasad Deidre 11/26/2024 12:48 PM Signed Appointment made and mailed as requested. ELLA Contreras Allergies As of Date: 11/22/2024 Noted Allergy Reaction ADHESIVE 05/11/2012 2 - Rash Date Reviewed: 09/16/2020 Reviewed by: Kaitlynn Carreon (Gagandeep)SHAYLA - Fully Assessed Reason for Visit: Results [95] Future Appointment [256] Primary Visit Diagnosis:History of thyroid cancer [Z85.850] Order(s):T4/THYROXINE [SQT4] Order #: [id number] FUTURE THYROID STIMULATING HORMONE [SQTSH] Order #: [id number] FUTURE THYROGLOBULIN, SERUM WITH REFLEX TO IA OR LC-MS/MS [SQTHYRORF] Order #: [id number] FUTURE Prescriptions as of 11/26/2024 - levothyroxine (SYNTHROID) 200 mcg tablet Take [...] mouth once daily. Facility-Administered Medications as of 11/26/2024 - NaCl 0.9% iv infusion - diphenhydrAMINE 50 mg injection (BENADRYL) - hydrocortisone sodium succinate 100 mg injection (Solu-CORTEF) - EPINEPHrine 1 mg/mL (1 mL) 0.3 mg injection - sodium chloride 0.9 % (flush) 10-20 mL (BD POSIFLUSH) - heparin 100 unit/mL 500 Units injection - sodium chloride 0.9 % (flush) 10-20 mL (BD POSIFLUSH) Problem List As Of Date 11/22/2024 Noted Resolved Rotator cuff (capsule) sprain [S43.429A] 08/07/2012 Cervicalgia [M54.2] 08/07/2012 Bicipital tendinitis [M75.20] 11/23/2012 Thyroid cancer (HCC) [C73] 06/04/2020 Encounter Status:Closed by [place] PRINGLE on 11/22/24 [facility] KATALINA HUTCHINS ([id number]) 1965 F Date Time Provider Department 11/13/24 [place] PRINGLE During your visit today, we recorded the following information about you: Argenis Reynolds, RN 11/13/2024 9:46 AM Signed Call placed to [facility] due to still not having TG total result. Per lab, they checked with lab pam this am and result still pending. PSS- please call pt and delay phone appt 1 week so we have result. Thank you Argenis Reynolds RN Martina Guzman 11/13/2024 10:01 AM Signed Lvm for patient to call back and move phone visit appt out a week. Martina Suazo ELLA Guzman Martina Guzman 11/13/2024 1:31 PM Signed Spoke with patient AND rescheduled her phone visit out 1 week on 11/21/2024 at 4 pm. ELLA Mathews Allergies As of Date: 11/13/2024 Noted Allergy Reaction ADHESIVE 05/11/2012 2 - Rash Date Reviewed: 09/16/2020 Reviewed by: Kaitlynn Carreon (Gagandeep)SHAYLA - Fully Assessed Reason for Visit: Results [95] Patient Update [1234] Future Appointment [256] Prescriptions as of 11/15/2024 - levothyroxine (SYNTHROID) 200 mcg tablet Take [...] mouth once daily. Facility-Administered Medications as of 11/15/2024 - NaCl 0.9% iv infusion - diphenhydrAMINE 50 mg injection (BENADRYL) - hydrocortisone sodium succinate 100 mg injection (Solu-CORTEF) - EPINEPHrine 1 mg/mL (1 mL) 0.3 mg injection - sodium chloride 0.9 % (flush) 10-20 mL (BD POSIFLUSH) - heparin 100 unit/mL 500 Units injection - sodium chloride 0.9 % (flush) 10-20 mL (BD POSIFLUSH) Problem List As Of Date 11/13/2024 Noted Resolved Rotator cuff (capsule) sprain [S43.429A] 08/07/2012 Cervicalgia [M54.2] 08/07/2012 Bicipital tendinitis [M75.20] 11/23/2012 Thyroid cancer (HCC) [C73] 06/04/2020 Encounter Status:Closed by ARGENIS REYNOLDS on 11/15/[address] [facility] ALL CBC WITH AUTO DIFFon BASOPHILS ABSOLUTE AUTO 0.1 [facility] Basophils/100 WBC (Bld) 0.8 % 0.2 - 2.0 % [facility] Eosinophils/100 WBC (Bld) 1.8 % 0.9 - 7.0 % [facility] Erythrocyte distribution width (RBC) [Ratio] 15.6 % High 11.0 - 15.0 % [facility] Hematocrit (Bld) [Volume fraction] 37.4 % 36.0 - 48.0 % [facility] Hemoglobin (Bld) [Mass/Vol] 12.7 g/dL 12.0 - 16.0 g/dL [facility] IMMATURE GRANULOCYTES ABS AUTO 0.03 [facility] Immature granulocytes/100 WBC (Bld) 0.4 % 0.0 - 0.5 % [facility] Interpretation and review of laboratory results Abnormal [facility] LYMPHOCYTES ABSOLUTE AUTO 2 [facility] Lymphocytes/100 WBC (Bld) 28.3 % 20.5 - 60.0 % [facility] MCH (RBC) [Entitic mass] 27.9 pg 26.7 - 34.0 pg [facility] MCHC (RBC) [Mass/Vol] 34 g/dL 29.9 - 35.2 g/dL [facility] MCV (RBC) [Entitic vol] 82.2 fL 81.0 - 99.0 fL [facility] MONOCYTES ABSOLUTE AUTO 0.6 [facility] Monocytes/100 WBC (Bld) 7.8 % 1.7 - 12.0 % [facility] NEUTROPHILS ABSOLUTE AUTO 4.3 [facility] Neutrophils/100 WBC (Bld) 60.9 % 43.0 - 75.0 % [facility] Platelet mean volume (Bld) [Entitic vol] 10.7 fL 9.5 - 13.5 fL [facility] TBH EO # 0.1 [facility] TBH PLT 203 [facility] RBC 4.55 [facility] WBC 7.1 [facility] CLINISYNC [facility] CNPNon 07-24-2024 [facility] Telephone (RADTSA) KATALINA HUTCHINS ([id number]) 1965 F Date Time Provider Department 07/24/24 [place] PRINGLE During your visit today, we recorded the following information about you: Argenis Reynolds RN 07/24/2024 9:22 AM Addendum Call placed to pt to check status and see how she is feeling. If doing well, ok to reschedule her phone visit for 3 months with labs prior including TG. Requested CB. Pt returned call immediately and stated she is doing very well without complaints. She is in agreement with this plan. ARMANI- please sign orders. PSS-Please reschedule phone visit for 3 months out. Please fax lab orders to [facility] once signed and also mail paper copy of all orders to patient. Thank you SHAYLA Prasad Jodi 07/24/2024 2:19 PM Signed Patient scheduled for 3 month phone visit. Just waiting on orders to be signed to be mailed to patient and faxed to [facility]. Myriam Jewell 07/24/2024 4:01 PM Signed Orders faxed to [facility] and mailed to patient home. Allergies As of Date: 07/24/2024 Noted Allergy Reaction ADHESIVE 05/11/2012 2 - Rash Date Reviewed: 09/16/2020 Reviewed by: Kaitlynn Carreon), RN - Fully Assessed Reason for Visit: Lab Orders [1688] Patient Update [1234] Future Appointment [256] Primary Visit Diagnosis:History of thyroid cancer [Z85.850] Order(s):T4/THYROXINE [SQT4] Order #: [id number] FUTURE THYROID STIMULATING HORMONE [SQTSH] Order #: [id number] FUTURE THYROGLOBULIN, SERUM WITH REFLEX TO IA OR LC-MS/MS [SQTHYRORF] Order #: [id number] FUTURE Prescriptions as of 07/24/2024 - levothyroxine (SYNTHROID) 200 mcg tablet Take [...] mouth once daily. Facility-Administered Medications as of 07/24/2024 - NaCl 0.9% iv infusion - diphenhydrAMINE 50 mg injection (BENADRYL) - hydrocortisone sodium succinate 100 mg injection (Solu-CORTEF) - EPINEPHrine 1 mg/mL (1 mL) 0.3 mg injection - sodium chloride 0.9 % (flush) 10-20 mL (BD POSIFLUSH) - heparin 100 unit/mL 500 Units injection - sodium chloride 0.9 % (flush) 10-20 mL (BD POSIFLUSH) Problem List As Of Date 07/24/2024 Noted Resolved Rotator cuff (capsule) sprain [S43.429A] 08/07/2012 Cervicalgia [M54.2] 08/07/2012 Bicipital tendinitis [M75.20] 11/23/2012 Thyroid cancer (HCC) [C73] 06/04/2020 Encounter Status:Closed by MYRIAM JEWELL on 07/24/[address] [facility] Glucose (Bld) [Mass/Vol]on 0 07-13-2024 Glucose Blood, POC 286 mg/dL [facility] Laboratory - Hematology and Cell countson 07-13-2024 HbA1c (Bld) [Mass fraction] 9.5 % [facility] No Panel Informationon 07-13 Interpretation and review of laboratory results Abnormal [facility] ALL THYROID STIM HORMONEon 0 06-12-2024 TSH Qn 2.668 m[IU]/L [facility] ALL THYROXINE (T4)on 025 Interpretation and review of laboratory results Abnormal [facility] T4 [Mass/Vol] 16.3 ug/dL High 4.80 - 13.90 ug/dL [facility] No Panel Informationon 06-12 [facility]YNC [facility] CNPNon 03-22-2024 [facility] Telephone (RADTSA) KATALINA HUTCHINS ([id number]) 1965 F Date Time Provider Department 03/22/24 [place] PRINGLE During your visit today, we recorded the following information about you: Argenis eRynolds, RN 03/22/2024 2:46 PM Signed PSS-Per Dr Pringle, he was unable to reach pt for her phone visit. He would like patient to have labs rechecked and then a phone visit in July. These labs will take 7-10 days, so pt will need to have phone visit scheduled 2 weeks after labs. Once signed, please fax orders to [facility] and also mail paper copy to patient. Dr Pringle- please sign pended orders for February and synthroid refill so pt will not run out again. Thank you SHAYLA Prasad Jodi 03/23/2024 7:10 AM Signed Watching for signed orders and will finish Myriam Jewell 03/23/2024 10:45 AM Signed Faxed orders to [facility]. To be drawn by 07/11 to be ready for phone visit on 07/25. Also mailed copies to patient. Shu Arroyo HUC 03/23/2024 3:12 PM Signed Patient called this afternoon, apologizing for missing Dr. Pringle's phone appointment. Her Mother had on Tuesday and had family over and didn't hear her phone ringing. She wanted to see if she should reschedule- but when told about the phone visit and labs in Jul 2024 she was ok with those appointments. ELLA Navarro Allergies As of Date: 03/22/2024 Noted Allergy Reaction ADHESIVE 05/11/2012 2 - Rash Date Reviewed: 09/16/2020 Reviewed by: Kaitlynn Carreon (Gagandeep), SHAYLA - Fully Assessed Reason for Visit: Lab Orders [1688] Future Appointment [256] Primary Visit Diagnosis:History of thyroid cancer [Z85.850] Order(s):T4/THYROXINE [SQT4] Order #: [id number] FUTURE THYROID STIMULATING HORMONE [SQTSH] Order #: [id number] FUTURE THYROGLOBULIN, SERUM WITH REFLEX TO IA OR LC-MS/MS [SQTHYRORF] Order #: [id number] FUTURE levothyroxine (SYNTHROID) 200 mcg tabletTake 1 tablet by mouth once daily.Disp: 30 tabletRfl: 3 Prescriptions as of 03/26/2024 - levothyroxine (SYNTHROID) 200 mcg tablet Take [...] mouth once daily. Facility-Administered Medications as of 03/26/2024 - NaCl 0.9% iv infusion - diphenhydrAMINE 50 mg injection (BENADRYL) - hydrocortisone sodium succinate 100 mg injection (Solu-CORTEF) - EPINEPHrine 1 mg/mL (1 mL) 0.3 mg injection - sodium chloride 0.9 % (flush) 10-20 mL (BD POSIFLUSH) - heparin 100 unit/mL 500 Units injection - sodium chloride 0.9 % (flush) 10-20 mL (BD POSIFLUSH) Problem List As Of Date 03/22/2024 Noted Resolved Rotator cuff (capsule) sprain [S43.429A] 08/07/2012 Cervicalgia [M54.2] 08/07/2012 Bicipital tendinitis [M75.20] 11/23/2012 Thyroid cancer (HCC) [C73] 06/04/2020 Prescriptions ordered this encounter Disp Refills Start End LEVOTHYROXINE 200 MCG TABLET 30 t* 3 03/23/2024 Route: ORAL Sig: Take 1 tablet by mouth once daily. Medications Discontinued During This Encounter Prescriptions - levothyroxine (SYNTHROID) 200 mcg tablet (Discontinued) Take 1 tablet by mouth once daily. Encounter Status:Closed by ARGENIS REYNOLDS on 03/26/24 [facility] ALL THYROID STIM HORMONEon 1 Interpretation and review of laboratory results Abnormal [facility] TSH Qn 8.949 m[IU]/L High [facility] ALL THYROXINE (T4)on 024 T4 [Mass/Vol] 10.90 ug/dL 4.80 - 13.90 ug/dL [facility] No Panel Informationon 03-15 [facility] Glucose (Bld) [Mass/Vol]on 1 Glucose Blood, POC 144 mg/dL [facility] Interpretation and review of laboratory results Abnormal [facility] HbA1c (Bld) [Mass fraction]o n 03-08-2024 Interpretation and review of laboratory results Normal [facility] Laboratory - Hematology and Cell countson 03-08-2024 HbA1c (Bld) [Mass fraction] 7.2 % [facility] No Panel Informationon 03-08 [facility] Glucose Glucometer (BldC) [M ass/Vol]on 09-27-2023 Glucose [Mass/Vol] 169 mg/dL High 65-99 [facility] Surgical Pathologyon 024 Surgical Pathology Normal [facility] Comment on above: Result Comment: [facility] [address] [place] [address] Surgical Pathology Consultation Patient Name:KATALINA HUTCHINS:1965 (Age: 58)Gender:FTaken:09/27/2023eported:09/29/2023hysician(s):Latosha Corbett D.O. ([phone])Copy To: Rec. #:[id number]: #[id number] Final Pathologic Diagnosis Transverse colon polyp: Tubular adenoma fragments. Report Electronically Signed Out 09/29/2023Bee Montalvo MD Interpretation performed at [facility] [place], [address] [facility] [address], License number: [id number]. Clinical History Family history of colon cancer. Gross Description Received in formalin labeled evan HUTCHINS is a single medellin strip of soft tissue, 1.1 cm in greatest dimension. Filtered and submitted in a single cassette. (1, ns, [id number], m7) MG mjg/09/27/2023NSK Specimen(s) Received Transverse colon polyp Fee Codes(s): 1; 20432 CBC AUTO DIFFon 10-12-2022 BASO # 0.1 103/ul Normal 0.0-0.1 [facility] Comment on above: Performed By: #### C BC #### [facility] [address] [place] [address] Dr. Karena Montero Basophils/100 WBC (Bld) 0.8 % Normal 0.2-2.0 [facility] Comment on above: Performed By: #### C BC #### [facility] [address] [place] [address] Dr. Karena Montero EO # 0.2 103/ul Normal 0.0-0.7 [facility] Comment on above: Performed By: #### C BC #### [facility] [address] [place] [address] Dr. Karena Montero Eosinophils/100 WBC (Bld) 2.5 % Normal 0.9-7.0 [facility] Comment on above: Performed By: #### C BC #### [facility] [address] [place] [address] Dr. Karena Montero Erythrocyte distribution width (RBC) [Ratio] 14.5 % Normal 11.0-15.0 [facility] Comment on above: Performed By: #### C BC #### [facility] [address] [place] [address] Dr. Karena Montero Hematocrit (Bld) [Volume fraction] 42.9 % Normal 36.0-48.0 [facility] Comment on above: Performed By: #### C BC #### [facility] [address] [place] [address] Dr. Karena Montero Hemoglobin (Bld) [Mass/Vol] 14.3 g/dL Normal 12.0-16.0 [facility] Comment on above: Performed By: #### C BC #### [facility] [address] [place] [address] Dr. Karena Montero IG # 0.02 10e3/ul Normal 0.00-0.03 [facility] Comment on above: Performed By: #### C BC #### [facility] [address] [place] [address] Dr. Karena Montero IG % 0.3 % Normal 0.0-0.5 [facility] Comment on above: Performed By: #### C BC #### [facility] [address] [place] [address] Dr. Karena Montero LYMPH # 1.6 103/ul Normal 1.2-3.8 [facility] Comment on above: Performed By: #### C BC #### [facility] [address] [place] [address] Dr. Karena Montero Lymphocytes/100 WBC (Bld) 27.2 % Normal 20.5-60.0 [facility] Comment on above: Performed By: #### C BC #### [facility] [address] [place] [address] Dr. Karena Montero MANUAL DIFF REQ NO Normal [facility] Comment on above: Performed By: #### C BC #### [facility] [address] [place] [address] Dr. Karena Montero MCH (RBC) [Entitic mass] 28.9 pg Normal 26.7-34.0 [facility] Comment on above: Performed By: #### C BC #### [facility] [address] [place] [address] Dr. Karena Montero MCHC (RBC) [Mass/Vol] 33.3 g/dL Normal 29.9-35.2 [facility] Comment on above: Performed By: #### C BC #### [facility] [address] [place] [address] Dr. Karena Montero MCV (RBC) [Entitic vol] 86.8 fL Normal 81.0-99.0 [facility] Comment on above: Performed By: #### C BC #### [facility] [address] [place] [address] Dr. Karena Montero MONO # 0.5 103/ul Normal 0.3-0.8 [facility] Comment on above: Performed By: #### C BC #### [facility] [address] [address] [address] Karena Montero Monocytes/100 WBC (Bld) 8.5 % Normal 1.7-12.0 [facility] Comment on above: Performed By: #### C BC #### [facility] [address] [place] [address] Dr. Karena Montero NEUT # 3.7 103/ul Normal 1.4-6.5 [facility] Comment on above: Performed By: #### C BC #### [facility] [address] [place] [address] Dr. Karena Montero Neutrophils/100 WBC (Bld) 60.7 % Normal 43.0-75.0 [facility] Comment on above: Performed By: #### C BC #### [facility] [address] [place] [address] Dr. Karena Montero Platelet mean volume (Bld) [Entitic vol] 10.2 fL Normal 9.5-13.5 [facility] Comment on above: Performed By: #### C BC #### [facility] [address] [place] [address] Dr. Karena Montero PLT 214 103/ul Normal 150-450 [facility] Comment on above: Performed By: #### C BC #### [facility] [address] [place] [address] Dr. Karena Montero RBC 4.94 106/ul Normal 4.20-5.40 [facility] Comment on above: Performed By: #### C BC #### [facility] [address] [place] [address] Dr. Karena Montero WBC 6.0 103/ul Normal 4.0-11.0 [facility] Comment on above: Performed By: #### C BC #### [facility] [address] [place] [address] Dr. Karena Montero GLYCOHEMOGLOBIN A1Con 2022 ADA RECOMMENDATION SEE BELOW Normal [facility] Comment on above: Result Comment: ADA RECOMMENDED LIMIT 4.0 - 6.0 ADA THERAPEUTIC TARGET < 7.0 ACTION SUGGESTED > 7.0 Performed By: #### C BC #### [facility] [address] [address] [address] Karena Montero Glucose [Mass/Vol] 292 mg/dL Normal [facility] Comment on above: Performed By: #### C BC #### [facility] [address] [address] [address] Karena Montero HbA1c (Bld) [Mass fraction] 11.8 % Critically high 4.5-6.2 [facility] Comment on above: Performed By: #### C BC #### [facility] [address] [place] [address] Dr. Karena Montero LIPID PROFILEon 10-12-2022 CHOL-HDL RATIO NORM SEE BELOW Normal [facility] Comment on above: Result Comment: 3.3 - 4.4 LOW RISK 4.4 - 7.1 AVERAGE RISK 7.1 - 11.0 MODERATE RISK >11.0 HIGH RISK Performed By: #### C BC #### [facility] [address] [place] [address] Dr. Karena Montero Cholesterol [Mass/Vol] 199 mg/dL Normal <=200 [facility] Comment on above: Performed By: #### C BC #### [facility] [address] [place] [address] Dr. Karena Montero Cholesterol in HDL [Mass/Vol] 63 mg/dL Critically high 40-60 [facility] Comment on above: Performed By: #### C BC #### [facility] [address] [place] [address] Dr. Karena Montero Cholesterol in LDL [Mass/Vol] 119.8 mg/dL Normal [facility] Comment on above: Performed By: #### C BC #### [facility] [address] [place] [address] Dr. Karena Montero Cholesterol.total/C holesterol in HDL [Mass ratio] 3.2 {ratio} Normal [facility] Comment on above: Performed By: #### C BC #### [facility] [address] [place] [address] Dr. Karena Montero HDL NORMAL > or = 60 mg/dl - LO W CARDIOVASCULAR RISK <40 mg/dl - HIGH CARDIOVASCULAR RISK Normal [facility] Comment on above: Performed By: #### C BC #### [facility] [address] [address] [address] Karena Montero LDL CALC NORMAL SEE BELOW Normal [facility] Comment on above: Result Comment: <100 mg/dl OPTIMAL 100 - 129 mg/dl NEAR OR ABOVE OPTIMAL 130 - 159 mg/dl BORDERLINE HIGH 160 - 189 mg/dl HIGH >190 mg/dl VERY HIGH Performed By: #### C BC #### [facility] [address] [address] [address] Karena Montero Triglyceride [Mass/Vol] 81 mg/dL Normal <=150 [facility] Comment on above: Performed By: #### C BC #### [facility] [address] [address] [address] Karena Montero VLDL CALC 16.2 mg/dL Normal [facility] Comment on above: Performed By: #### C BC #### [facility] [address] [address] [address] Karena Montero MICROALBUMIN, RAND URon 05-0 mALB 4.5 mg/L Normal <=30.0 [facility] Comment on above: Performed By: #### M ALBR #### [facility] [address] [address] [address] Karena Montero PROF 14(COMP METB)on 023 Albumin [Mass/Vol] 3.3 g/dL Critically low 3.4-5.0 [facility] Comment on above: Performed By: #### C BC #### [facility] [address] [address] [address] Karena Montero Albumin/Globulin [Mass ratio] 0.7 {ratio} Normal [facility] Comment on above: Performed By: #### C BC #### [facility] [address] [address] [address] Karena Montero ALP [Catalytic activity/Vol] 45 U/L Critically low 46-116 [facility] Comment on above: Performed By: #### C BC #### [facility] [address] [address] [address] Karena Montero ALT [Catalytic activity/Vol] 46 U/L Normal 14-59 [facility] Comment on above: Performed By: #### C BC #### [facility] [address] [address] [address] Karena Montero Anion gap [Moles/Vol] 12.5 mmol/L Normal [facility] Comment on above: Performed By: #### C BC #### [facility] [address] [address] [address] Karena Montero AST [Catalytic activity/Vol] 50 U/L Critically high 15-37 [facility] Comment on above: Performed By: #### C BC #### [facility] [address] [address] [address] Karena Montero Bilirubin [Mass/Vol] 0.9 mg/dL Normal 0.2-1.0 [facility] Comment on above: Performed By: #### C BC #### [facility] [address] [address] [address] Karena Montero Calcium [Mass/Vol] 9.5 mg/dL Normal 8.5-10.1 [facility] Comment on above: Performed By: #### C BC #### [facility] [address] [address] [address] Karena Montero Chloride [Moles/Vol] 102 mmol/L Normal 98-107 [facility] Comment on above: Performed By: #### C BC #### [facility] [address] [address] [address] Karena Montero CO2 [Moles/Vol] 29.4 mmol/L Normal 21.0-32.0 [facility] Comment on above: Performed By: #### C BC #### [facility] [address] [address] [address] Karena Montero Creatinine [Mass/Vol] 0.89 mg/dL Normal 0.55-1.02 [facility] Comment on above: Performed By: #### C BC #### [facility] [address] [address] [address] Karena Montero EGFR-AF STATELESS >60 Normal >=60 [facility] Comment on above: Performed By: #### C BC #### [facility] [address] [address] [address] Karena Montero EGFR-NON AF STATELESS >60 Normal >=60 [facility] Comment on above: Performed By: #### C BC #### [facility] [address] [address] [address] Karena Montero Globulin (S) [Mass/Vol] 4.6 g/dL Normal [facility] Comment on above: Performed By: #### C BC #### [facility] [address] [address] [address] Karena Montero Glucose [Mass/Vol] 163 mg/dL Critically high 74-106 [facility] Comment on above: Performed By: #### C BC #### [facility] [address] [address] [address] Karena Montero Potassium [Moles/Vol] 4.9 mmol/L Normal 3.5-5.1 [facility] Comment on above: Performed By: #### C BC #### [facility] [address] [place] [address] Dr. Karena Montero Protein [Mass/Vol] 7.9 g/dL Normal 6.4-8.2 [facility] Comment on above: Performed By: #### C BC #### [facility] [address] [address] [address] Karena Montero Sodium [Moles/Vol] 139 mmol/L Normal 136-145 [facility] Comment on above: Performed By: #### C BC #### [facility] [address] [place] [address] Dr. Karena Montero Urea nitrogen [Mass/Vol] 11.0 mg/dL Normal 7.0-18.0 [facility] Comment on above: Performed By: #### C BC #### [facility] [address] [place] [address] Dr. Karena Montero Urea nitrogen/Creatinine [Mass ratio] 12.4 mg/mg Normal [facility] Comment on above: Performed By: #### C BC #### [facility] [address] [address] [address] Karena Montero UA RANDOM W/MICROSCOPICon BACTERIA TRACE Abnormal NONE SEEN [facility] Comment on above: Performed By: #### M RUBY #### [facility] [address] [address] [address] Karena Montero Bilirubin Ql (U) Negative Normal NEGATIVE [facility] Comment on above: Performed By: #### M RUBY #### [facility] [address] [place] [address] Dr. Karena Montero CAST SEEN Abnormal NONE SEEN [facility] Comment on above: Performed By: #### M RUBY #### [facility] [address] [place] [address] Dr. Karena Montero Clarity (U) CLEAR Normal CLEAR [facility] Comment on above: Performed By: #### M RUBY #### [facility] [address] [address] [address] Karena Montero Color (U) YELLOW Normal YELLOW [facility] Comment on above: Performed By: #### M RUBY #### [facility] [address] [place] [address] Dr. Karena Montero Crystals LM Nom (Urine sed) NONE SEEN Normal NONE SEEN [facility] Comment on above: Performed By: #### M RUBY #### [facility] [address] [address] [address] Karena Montero Epithelial cells LM Ql (Urine sed) RARE Normal NONE SEEN /RARE [facility] Comment on above: Performed By: #### M RUBY #### [facility] [address] [place] [address] Dr. Karena Montero Glucose Ql (U) Negative Normal NEGATIVE [facility] [place] Comment on above: Performed By: #### M RUBY #### [facility] [address] [place] [address] Dr. Karena Montero Hemoglobin Ql (U) Negative Normal NEGATIVE [facility] Comment on above: Performed By: #### M RUBY #### [facility] [address] [address] [address] Karena Montero HYALINE CAST RARE Normal [facility] Comment on above: Performed By: #### M RUBY #### [facility] [address] [address] [address] Karena Montero Ketones Ql (U) Negative Normal NEGATIVE [facility] [place] Comment on above: Performed By: #### M RUBY #### [facility] [address] [address] [address] Karena Montero LEUKOCYTES SMALL Abnormal NEGATIVE [facility] Comment on above: Performed By: #### M RUBY #### [facility] [address] [address] [address] Karena Montero MUCOUS NONE SEEN Normal NONE SEEN [facility] Comment on above: Performed By: #### M RUBY #### [facility] [address] [address] [address] Karena Montero Nitrite Ql (U) Negative Normal NEGATIVE [facility] Comment on above: Performed By: #### M RUBY #### [facility] [address] [address] [address] Karena Montero pH (U) 5.0 [pH] Normal 5-9 [facility] Comment on above: Performed By: #### M RUBY #### [facility] [address] [address] [address] Karena Montero RBC 0-2 Normal 0-2 [facility] Comment on above: Performed By: #### M RUBY #### [facility] [address] [address] [address] Karena Montero SPEC GRAVITY >=1.030 Abnormal 1.005-<=1.025 [facility] Comment on above: Performed By: #### M RUBY #### [facility] [address] [address] [address] Karena Montero UA PROTEIN TRACE Normal NEGATIVE/ TRACE [facility] Comment on above: Performed By: #### M URBY #### [facility] [address] [place] [address] Dr. Karena Montero Urobilinogen Qn (U) 4 {Emily'U}/dL Abnormal 0.2 - 1.0 [facility] Comment on above: Performed By: #### M RUBY #### [facility] [address] [place] [address] Dr. Karena Montero WBC 10-20 Abnormal NONE SEEN [facility] Comment on above: Performed By: #### M RUBY #### [facility] [address] [place] [address] Dr. Karena Montero T3, TOTAL (TRIIODOTHYRONINE) on 09-10-2022 T3, TOTAL 92 ng/dL Normal 71-180 [facility] Comment on above: Performed By: #### C BC #### [facility] [address] [place] [address] Dr. Karena Montero T4on 09-08-2022 T4 [Mass/Vol] 11.70 ug/dL Normal 4.80-13.90 [facility] Comment on above: Performed By: #### T 4, TSH #### [facility] [address] [place] [address] Dr. Karena Montero TSHon 09-08-2022 TSH 10.637 uIU/mL Critically high 0.358-3.740 [facility] Comment on above: Performed By: #### T 4, TSH #### [facility] [address] [place] [address] NECK [address] W [...] DEONNA CHERRY Date: 2022-06-20 22:08 Normal [facility] CBC AUTO DIFFon 06-20-2022 BASO # 0.1 103/ul Normal 0.0-0.1 [facility] Comment on above: Performed By: #### T 4, TSH #### [facility] [address] [place] [address] Dr. Karena Montero Basophils/100 WBC (Bld) 0.9 % Normal 0.2-2.0 [facility] Comment on above: Performed By: #### T 4, TSH #### [facility] [address] [place] [address] Dr. Karena Montero EO # 0.1 103/ul Normal 0.0-0.7 [facility] Comment on above: Performed By: #### T 4, TSH #### [facility] [address] [address] [address] Karena Montero Eosinophils/100 WBC (Bld) 0.5 % Critically low 0.9-7.0 [facility] Comment on above: Performed By: #### T 4, TSH #### [facility] [address] [address] [address] Karena Montero Erythrocyte distribution width (RBC) [Ratio] 13.8 % Normal 11.0-15.0 [facility] Comment on above: Performed By: #### T 4, TSH #### [facility] [address] [place] [address] Dr. Karena Montero Hematocrit (Bld) [Volume fraction] 39.7 % Normal 36.0-48.0 [facility] Comment on above: Performed By: #### T 4, TSH #### [facility] [address] [place] [address] Dr. Karena Montero Hemoglobin (Bld) [Mass/Vol] 13.7 g/dL Normal 12.0-16.0 [facility] Comment on above: Performed By: #### T 4, TSH #### [facility] [address] [place] [address] Dr. Karena Montero IG # 0.06 10e3/ul Critically high 0.00-0.03 [facility] Comment on above: Performed By: #### T 4, TSH #### [facility] [address] [place] [address] Dr. Karena Montero IG % 0.6 % Critically high 0.0-0.5 [facility] Comment on above: Performed By: #### T 4, TSH #### [facility] [address] [place] [address] Dr. Karena Montero LYMPH # 2.0 103/ul Normal 1.2-3.8 [facility] Comment on above: Performed By: #### T 4, TSH #### [facility] [address] [place] [address] Dr. Karena Montero Lymphocytes/100 WBC (Bld) 19.1 % Critically low 20.5-60.0 [facility] Comment on above: Performed By: #### T 4, TSH #### [facility] [address] [place] [address] Dr. Karena Montero MANUAL DIFF REQ NO Normal [facility] Comment on above: Performed By: #### T 4, TSH #### [facility] [address] [place] [address] Dr. Karena Montero MCH (RBC) [Entitic mass] 28.8 pg Normal 26.7-34.0 [facility] Comment on above: Performed By: #### T 4, TSH #### [facility] [address] [place] [address] Dr. Karena Montero MCHC (RBC) [Mass/Vol] 34.5 g/dL Normal 29.9-35.2 [facility] Comment on above: Performed By: #### T 4, TSH #### [facility] [address] [place] [address] Dr. Karena Montero MCV (RBC) [Entitic vol] 83.4 fL Normal 81.0-99.0 [facility] Comment on above: Performed By: #### T 4, TSH #### [facility] [address] [place] [address] Dr. Karena Montero MONO # 0.9 103/ul Critically high 0.3-0.8 [facility] Comment on above: Performed By: #### T 4, TSH #### [facility] [address] [place] [address] Dr. Karena Montero Monocytes/100 WBC (Bld) 8.2 % Normal 1.7-12.0 [facility] Comment on above: Performed By: #### T 4, TSH #### [facility] [address] [place] [address] Dr. Karena Montero NEUT # 7.5 103/ul Critically high 1.4-6.5 [facility] Comment on above: Performed By: #### T 4, TSH #### [facility] [address] [place] [address] Dr. Karena Montero Neutrophils/100 WBC (Bld) 70.7 % Normal 43.0-75.0 [facility] Comment on above: Performed By: #### T 4, TSH #### [facility] [address] [place] [address] Dr. Karena Montero Platelet mean volume (Bld) [Entitic vol] 10.5 fL Normal 9.5-13.5 [facility] Comment on above: Performed By: #### T 4, TSH #### [facility] [address] [place] [address] Dr. Karena Montero PLT 253 103/ul Normal 150-450 [facility] Comment on above: Performed By: #### T 4, TSH #### [facility] [address] [place] [address] Dr. Karena Montero RBC 4.76 106/ul Normal 4.20-5.40 [facility] Comment on above: Performed By: #### T 4, TSH #### [facility] [address] [place] [address] Dr. Karena Montero WBC 10.6 103/ul Normal 4.0-11.0 [facility] Comment on above: Performed By: #### T 4, TSH #### [facility] [address] [place] [address] Dr. Karena Montero CULTURE BLOODon 06-20-2022 Microscopic examination of blood, culture Culture Observations: NO GROWTH AT 5 DAYS. Normal [facility] Comment on above: Performed By: #### T 4, TSH #### [facility] [address] [place] [address] Dr. Karena Montero Microscopic examination of blood, culture Culture Observations: NO GROWTH AT 5 DAYS. Normal [facility] Comment on above: Performed By: #### T 4, TSH #### [facility] [address] [place] [address] Dr. Karena Montero LACTATE/LACTIC ACIDon 2022 Lactate [Moles/Vol] 1.5 mmol/L Normal 0.4-1.9 [facility] Comment on above: Performed By: #### T 4, TSH #### [facility] [address] [place] [address] Dr. Karena Montero MONOon 06-20-2022 Monocytes (Bld) [#/Vol] Negative Normal NEGATIVE [facility] Comment on above: Performed By: #### M RUBY #### [facility] [address] [place] [address] Dr. Karena Montero PROF 14(COMP METB)on 023 Albumin [Mass/Vol] 3.1 g/dL Critically low 3.4-5.0 [facility] Comment on above: Performed By: #### C MP #### [facility] [address] [place] [address] Dr. Karena Montero Albumin/Globulin [Mass ratio] 0.6 {ratio} Normal [facility] Comment on above: Performed By: #### C MP #### [facility] [address] [address] [address] Karena Montero ALP [Catalytic activity/Vol] 47 U/L Normal 46-116 [facility] Comment on above: Performed By: #### C MP #### [facility] [address] [place] [address] Dr. Karena Montero ALT [Catalytic activity/Vol] 20 U/L Normal 14-59 [facility] Comment on above: Performed By: #### C MP #### [facility] [address] [place] [address] Dr. Karena Montero Anion gap [Moles/Vol] 11.1 mmol/L Normal [facility] Comment on above: Performed By: #### C MP #### [facility] [address] [place] [address] Dr. Karena Montero AST [Catalytic activity/Vol] 24 U/L Normal 15-37 [facility] Comment on above: Performed By: #### C MP #### [facility] [address] [place] [address] Dr. Karena Montero Bilirubin [Mass/Vol] 1.5 mg/dL Critically high 0.2-1.0 [facility] Comment on above: Performed By: #### C MP #### [facility] [address] [place] [address] Dr. Karena Montero Calcium [Mass/Vol] 9.4 mg/dL Normal 8.5-10.1 [facility] Comment on above: Performed By: #### C MP #### [facility] [address] [place] [address] Dr. Karena Montero Chloride [Moles/Vol] 94 mmol/L Critically low 98-107 [facility] Comment on above: Performed By: #### C MP #### [facility] [address] [place] [address] Dr. Karena Montero CO2 [Moles/Vol] 27.9 mmol/L Normal 21.0-32.0 [place] [facility] Comment on above: Performed By: #### C MP #### [facility] [address] [address] [address] Karena Montero Creatinine [Mass/Vol] 0.85 mg/dL Normal 0.55-1.02 [facility] Comment on above: Performed By: #### C MP #### [facility] [address] [address] [address] Karena Montero EGFR-AF STATELESS >60 Normal >=60 [facility] Comment on above: Performed By: #### C MP #### [facility] [address] [place] [address] Dr. Karena Montero EGFR-NON AF STATELESS >60 Normal >=60 [facility] Comment on above: Performed By: #### C MP #### [facility] [address] [address] [address] Karena Montero Globulin (S) [Mass/Vol] 5.3 g/dL Normal [facility] Comment on above: Performed By: #### C MP #### [facility] [address] [address] [address] Karena Monetro Glucose [Mass/Vol] 204 mg/dL Critically high 74-106 [facility] Comment on above: Performed By: #### C MP #### [facility] [address] [place] [address] Dr. Karena Montero Potassium [Moles/Vol] 3.0 mmol/L Critically low 3.5-5.1 [facility] Comment on above: Performed By: #### C MP #### [facility] [address] [place] [address] Dr. Karena Montero Protein [Mass/Vol] 8.4 g/dL Critically high 6.4-8.2 [facility] Comment on above: Performed By: #### C MP #### [facility] [address] [place] [address] Dr. Karena Montero Sodium [Moles/Vol] 130 mmol/L Critically low 136-145 [facility] Comment on above: Performed By: #### C MP #### [facility] [address] [address] [address] Karena Montero Urea nitrogen [Mass/Vol] 10.0 mg/dL Normal 7.0-18.0 [facility] Comment on above: Performed By: #### C MP #### [facility] [address] [address] [address] Karena Montero Urea nitrogen/Creatinine [Mass ratio] 11.8 mg/mg Normal [facility] Comment on above: Performed By: #### C MP #### [facility] [address] [address] [address] Karena Montero STREPT SCREENon 06-20-2022 STREP SCREEN A Positive Abnormal NEGATIVE [facility] Comment on above: Performed By: #### C BC #### [facility] [address] [place] [address] Dr. Karena Montero THYROGLOBULIN AB AND THYROGL OBULINon 05-29-2022 Thyroglobulin Antibody <1.0 Normal 0.0-0.9 [facility] Comment on above: Result Comment: Thyr oglobulin Antibody measured by [place] Methodology Performed By: #### T HYGIMA #### [facility] [address] [place] [address] Dr. Karena Montero Thyroglobulin by ZACK <0.1 Critically low 1.5-38.5 [facility] Comment on above: Result Comment: Acco rding [...] Assay Performed By: #### T HYGIMA #### [facility] [address] [place] [address] Dr. Karena Montero T3, TOTAL (TRIIODOTHYRONINE) on 05-28-2022 T3, TOTAL 77 ng/dL Normal 71-180 [facility] Comment on above: Performed By: #### C BC #### [facility] [address] [address] [address] Karena Montero GLYCOHEMOGLOBIN A1Con 2021 ADA RECOMMENDATION SEE BELOW Normal [facility] Comment on above: Result Comment: ADA RECOMMENDED LIMIT 4.0 - 6.0 ADA THERAPEUTIC TARGET < 7.0 ACTION SUGGESTED > 7.0 Performed By: #### T 4, TSH #### [facility] [address] [address] [address] Karena Montero Glucose [Mass/Vol] 252 mg/dL Normal [facility] Comment on above: Performed By: #### T 4, TSH #### [facility] [address] [place] [address] Dr. Karena Montero HbA1c (Bld) [Mass fraction] 10.4 % Critically high 4.5-6.2 [facility] Comment on above: Performed By: #### T 4, TSH #### [facility] [address] [address] [address] Karena Montero PROF CHEM 8 (BAS METB)on Anion gap [Moles/Vol] 11.2 mmol/L Normal [facility] Comment on above: Performed By: #### C BC #### [facility] [address] [place] [address] Dr. Karena Montero Calcium [Mass/Vol] 9.2 mg/dL Normal 8.5-10.1 [facility] Comment on above: Performed By: #### C BC #### [facility] [address] [place] [address] Dr. Karena Montero Chloride [Moles/Vol] 98 mmol/L Normal 98-107 [facility] Comment on above: Performed By: #### C BC #### [facility] [address] [place] [address] Dr. Karena Montero CO2 [Moles/Vol] 30.4 mmol/L Normal 21.0-32.0 [facility] Comment on above: Performed By: #### C BC #### [facility] [address] [place] [address] Dr. Karena Montero Creatinine [Mass/Vol] 0.99 mg/dL Normal 0.55-1.02 [facility] Comment on above: Performed By: #### C BC #### [facility] [address] [place] [address] Dr. Karena Montero EGFR-AF STATELESS >60 Normal >=60 [facility] Comment on above: Performed By: #### C BC #### [facility] [address] [address] [address] Karena Montero EGFR-NON AF STATELESS 58 mL/min/1.73m2 Critically low >=60 [facility] Comment on above: Performed By: #### C BC #### [facility] [address] [place] [address] Dr. Karena Montero Glucose [Mass/Vol] 274 mg/dL Critically high 74-106 [facility] Comment on above: Performed By: #### C BC #### [facility] [address] [place] [address] Dr. Karena Montero Potassium [Moles/Vol] 3.6 mmol/L Normal 3.5-5.1 [facility] Comment on above: Performed By: #### C BC #### [facility] [address] [place] [address] Dr. Karena Montero Sodium [Moles/Vol] 136 mmol/L Normal 136-145 [facility] [place] Comment on above: Performed By: #### C BC #### [facility] [address] [place] [address] Dr. Karena Montero Urea nitrogen [Mass/Vol] 13.0 mg/dL Normal 7.0-18.0 [facility] Comment on above: Performed By: #### C BC #### [facility] [address] [place] [address] Dr. Karena Montero Urea nitrogen/Creatinine [Mass ratio] 13.1 mg/mg Normal [facility] Comment on above: Performed By: #### C BC #### [facility] [address] [place] [address] Dr. Karena Montero T4on 05-27-2022 T4 [Mass/Vol] 11.00 ug/dL Normal 4.80-13.90 [facility] Comment on above: Performed By: #### C BC #### [facility] [address] [address] [address] Karena Montero TSHon 05-27-2022 TSH 35.436 uIU/mL Critically high 0.358-3.740 [facility] Comment on above: Performed By: #### C BC #### [facility] [address] [address] [address] Karena Montero MG MAMM SCREEN 3D FRANCI CADon 04-27-2022 MG MAMM SCREEN 3D FRANCI CAD Patient: KATALINA HUTCHINS Exam Date: 04/27/2022 : 1965 Gender:F Ordering : TARIK KATALINA COLBERT [employer]INE[employer] Admission #: [id number] Family : Order #: [id number] CLICK HERE TO VIEW EXAM RADIOLOGY REPORT [...] uterine cancer at age 28. LOCATION: [facility] BREAST COMPOSITION: Scattered areas fibroglandular density. [...] LUMP SHOULD BE BIOPSIED. Dictated by: Jill Jean M.D. on 04/28/2022 at 12:08 Approved by: Jill Jean M.D. on 04/28/2022 at 12:11 Normal [facility] PTH INTACTon 02-20-2022 PTH, Intact 11 pg/mL Critically low 15-65 [facility] Comment on above: Performed By: #### T 4, TSH #### [facility] [address] [place], [place] [address] Dr. Karena Montero VIT D 25-OH [facility] 2021 Vitamin D, 25-Hydroxy 43.2 ng/mL Normal 30.0-100.0 [facility] Comment on above: Result Comment: Yvonne min D deficiency has been defined by the [place] of Medicine and an Endocrine Society practice guideline as a level of serum 25-OH vitamin D less than 20 ng/mL (1,2). The Endocrine Society went on to further define vitamin D insufficiency as a level between 21 and 29 ng/mL (2). 1. IOM ([place] of Medicine). 2010. Dietary reference intakes for calcium and D. [place]: The National Academies Press. 2. Herminia GALLARDO, Jean Marie WASHINGTON, Leigh LOYOLA, et al. Evaluation, treatment, and prevention of vitamin D deficiency: an Endocrine Society clinical practice guideline. JCEM. 2010; 96(7):1911-30. Performed By: #### M RUBY #### [facility] [address] [place], [place] [address] Dr. Karena Montero CALCIUMon 02-18-2022 Calcium [Mass/Vol] 9.8 mg/dL Normal 8.5-10.1 [facility] Comment on above: Performed By: #### M RUBY #### [facility] [address] [place], [place] [address] Dr. Karena Montero Covid-19 PCR (CVDTBH)on 01-06 SARS-CoV-2 (COVID-19) RNA RADHA+probe Ql (Unsp spec) Not detected Normal NOT DETECTED [facility] Comment on above: Result Comment: This test is not yet approved or cleared by the [place] FDA. When there are no FDA-approved or cleared tests available, and other criteria are met, FDA can make tests available under an emergency access mechanism called an Emergency Use Authorization (EUA). The EUA for this test is supported by the [place] of Health and Human Service's (HHS's) declaration [...] SARS-CoV-2. Performed By: #### M RUBY #### [facility] [address] [place] [address] Dr. Karena Montero MICROALBUMIN URINEon 022 Albumin, Urine 64.2 ug/mL Normal Not Estab. [facility] [place] Comment on above: Performed By: #### M ALBLC #### [facility] [address] [place] [address] Dr. Karena Montero T3, TOTAL (TRIIODOTHYRONINE) on 01-30-2022 T3, TOTAL 101 ng/dL Normal 71-180 [facility] Comment on above: Performed By: #### T 4, TSH #### [facility] [address] [place] [address] Dr. Karena Montero T4 [facility] 01-30-2022 T4 [Mass/Vol] 12.3 ug/dL Critically high 4.5-12.0 [facility] Comment on above: Performed By: #### M RUBY #### [facility] [address] [place] [address] Dr. Karena Montero CBC AUTO DIFFon 01-29-2022 BASO # 0.1 103/ul Normal 0.0-0.1 [facility] Comment on above: Performed By: #### C BC #### [facility] [address] [place] [address] Dr. Karena Montero Basophils/100 WBC (Bld) 1.2 % Normal 0.2-2.0 [facility] Comment on above: Performed By: #### C BC #### [facility] [address] [place] [address] Dr. Karena Montero EO # 0.1 103/ul Normal 0.0-0.7 [facility] Comment on above: Performed By: #### C BC #### [facility] [address] [place] [address] Dr. Karena Montero Eosinophils/100 WBC (Bld) 2.6 % Normal 0.9-7.0 [facility] Comment on above: Performed By: #### C BC #### [facility] [address] [place] [address] Dr. Karena Montero Erythrocyte distribution width (RBC) [Ratio] 14.0 % Normal 11.0-15.0 [facility] Comment on above: Performed By: #### C BC #### [facility] [address] [place] [address] Dr. Karena Montero Hematocrit (Bld) [Volume fraction] 42.7 % Normal 36.0-48.0 [facility] Comment on above: Performed By: #### C BC #### [facility] [address] [place] [address] Dr. Karena Montero Hemoglobin (Bld) [Mass/Vol] 14.4 g/dL Normal 12.0-16.0 [facility] Comment on above: Performed By: #### C BC #### [facility] [address] [place] [address] Dr. Karena Montero IG # 0.01 10e3/ul Normal 0.00-0.03 [facility] Comment on above: Performed By: #### C BC #### [facility] [address] [place] [address] Dr. Karena Montero IG % 0.2 % Normal 0.0-0.5 [facility] Comment on above: Performed By: #### C BC #### [facility] [address] [place] [address] Dr. Karena Montero LYMPH # 1.5 103/ul Normal 1.2-3.8 [facility] Comment on above: Performed By: #### C BC #### [facility] [address] [place] [address] Dr. Karena Montero Lymphocytes/100 WBC (Bld) 34.5 % Normal 20.5-60.0 [facility] Comment on above: Performed By: #### C BC #### [facility] [address] [place] [address] Dr. Karena Montero MANUAL DIFF REQ NO Normal [facility] Comment on above: Performed By: #### C BC #### [facility] [address] [place] [address] Dr. Karena Montero MCH (RBC) [Entitic mass] 29.0 pg Normal 26.7-34.0 [facility] Comment on above: Performed By: #### C BC #### [facility] [address] [place] [address] Dr. Karena Montero MCHC (RBC) [Mass/Vol] 33.7 g/dL Normal 29.9-35.2 [facility] Comment on above: Performed By: #### C BC #### [facility] [address] [place] [address] Dr. Karena Montero MCV (RBC) [Entitic vol] 85.9 fL Normal 81.0-99.0 [facility] Comment on above: Performed By: #### C BC #### [facility] [address] [place] [address] Dr. Karena Montero MONO # 0.4 103/ul Normal 0.3-0.8 [facility] Comment on above: Performed By: #### C BC #### [facility] [address] [place] [address] Dr. Karena Montero Monocytes/100 WBC (Bld) 8.2 % Normal 1.7-12.0 [facility] Comment on above: Performed By: #### C BC #### [facility] [address] [place] [address] Dr. Karena Montero NEUT # 2.3 103/ul Normal 1.4-6.5 [facility] Comment on above: Performed By: #### C BC #### [facility] [address] [place] [address] Dr. Karena Montero Neutrophils/100 WBC (Bld) 53.3 % Normal 43.0-75.0 [facility] Comment on above: Performed By: #### C BC #### [facility] [address] [address] [address] Karena Montero Platelet mean volume (Bld) [Entitic vol] 11.6 fL Normal 9.5-13.5 [facility] Comment on above: Performed By: #### C BC #### [facility] [address] [address] [address] Karena Montero PLT 167 103/ul Normal 150-450 [facility] Comment on above: Performed By: #### C BC #### [facility] [address] [address] [address] Karena Montero RBC 4.97 106/ul Normal 4.20-5.40 [facility] Comment on above: Performed By: #### C BC #### [facility] [address] [place] [address] Dr. Karena Montero WBC 4.3 103/ul Normal 4.0-11.0 [facility] Comment on above: Performed By: #### C BC #### [facility] [address] [address] [address] Karena Montero GLYCOHEMOGLOBIN A1Con 2021 ADA RECOMMENDATION SEE BELOW Normal [facility] Comment on above: Result Comment: ADA RECOMMENDED LIMIT 4.0 - 6.0 ADA THERAPEUTIC TARGET < 7.0 ACTION SUGGESTED > 7.0 Performed By: #### A 1C #### [facility] [address] [place] [address] Dr. Karena Montero Glucose [Mass/Vol] 258 mg/dL Normal [facility] Comment on above: Performed By: #### A 1C #### [facility] [address] [address] [address] Karena Montero HbA1c (Bld) [Mass fraction] 10.6 % Critically high 4.5-6.2 [facility] Comment on above: Performed By: #### A 1C #### [facility] [address] [place] [address] Dr. Karena Montero LIPID PROFILEon 01-29-2022 CHOL-HDL RATIO NORM SEE BELOW Normal [facility] Comment on above: Result Comment: 3.3 - 4.4 LOW RISK 4.4 - 7.1 AVERAGE RISK 7.1 - 11.0 MODERATE RISK >11.0 HIGH RISK Performed By: #### M RUBY #### [facility] [address] [address] [address] Karena Montero Cholesterol [Mass/Vol] 160 mg/dL Normal <=200 [facility] Comment on above: Performed By: #### M RUBY #### [facility] [address] [address] [address] Karena Montero Cholesterol in HDL [Mass/Vol] 60 mg/dL Normal 40-60 [facility] Comment on above: Performed By: #### M RUBY #### [facility] [address] [address] [address] Karena Montero Cholesterol in LDL [Mass/Vol] 83.0 mg/dL Normal [facility] Comment on above: Performed By: #### M RUBY #### [facility] [address] [address] [address] Karena Montero Cholesterol.total/C holesterol in HDL [Mass ratio] 2.7 {ratio} Normal [facility] Comment on above: Performed By: #### M RUBY #### [facility] [address] [address] [address] Karena Montero HDL NORMAL > or = 60 mg/dl - LO W CARDIOVASCULAR RISK <40 mg/dl - HIGH CARDIOVASCULAR RISK Normal [facility] Comment on above: Performed By: #### M RUBY #### [facility] [address] [address] [address] Karena Montero LDL CALC NORMAL SEE BELOW Normal [facility] Comment on above: Result Comment: <100 mg/dl OPTIMAL 100 - 129 mg/dl NEAR OR ABOVE OPTIMAL 130 - 159 mg/dl BORDERLINE HIGH 160 - 189 mg/dl HIGH >190 mg/dl VERY HIGH Performed By: #### M RUBY #### [facility] [address] [address] [address] Karena Montero Triglyceride [Mass/Vol] 85 mg/dL Normal <=150 [facility] Comment on above: Performed By: #### M RUBY #### [facility] [address] [address] [address] Karena Montero VLDL CALC 17.0 mg/dL Normal [facility] Comment on above: Performed By: #### M RUBY #### [facility] [address] [address] [address] Karena Montero PROF 14(COMP METB)on 022 Albumin [Mass/Vol] 3.3 g/dL Critically low 3.4-5.0 [facility] Comment on above: Performed By: #### M RUBY #### [facility] [address] [address] [address] Karena Montero Albumin/Globulin [Mass ratio] 0.8 {ratio} Normal [facility] Comment on above: Performed By: #### M RUBY #### [facility] [address] [place] [address] Dr. Karena Montero ALP [Catalytic activity/Vol] 47 U/L Normal 46-116 [facility] Comment on above: Performed By: #### M RUBY #### [facility] [address] [address] [address] Karena Montero ALT [Catalytic activity/Vol] 39 U/L Normal 14-59 [facility] Comment on above: Performed By: #### M RUBY #### [facility] [address] [address] [address] Karena Montero Anion gap [Moles/Vol] 14.2 mmol/L Normal [facility] Comment on above: Performed By: #### M RUBY #### [facility] [address] [address] [address] Karena Montero AST [Catalytic activity/Vol] 38 U/L Critically high 15-37 [facility] Comment on above: Performed By: #### M RUBY #### [facility] [address] [address] [address] Karena Montero Bilirubin [Mass/Vol] 0.9 mg/dL Normal 0.2-1.0 [facility] Comment on above: Performed By: #### M RUBY #### [facility] [address] [address] [address] Karena Montero Calcium [Mass/Vol] 10.2 mg/dL Critically high 8.5-10.1 [facility] Comment on above: Performed By: #### M RUBY #### [facility] [address] [address] [address] Karena Montero Chloride [Moles/Vol] 99 mmol/L Normal 98-107 [facility] Comment on above: Performed By: #### M RUBY #### [facility] [address] [address] [address] Karena Montero CO2 [Moles/Vol] 28.5 mmol/L Normal 21.0-32.0 [facility] Comment on above: Performed By: #### M RUBY #### [facility] [address] [place] [address] Dr. Karena Montero Creatinine [Mass/Vol] 0.97 mg/dL Normal 0.55-1.02 [facility] Comment on above: Performed By: #### M RUBY #### [facility] [address] [place] [address] Dr. Karena Montero EGFR-AF STATELESS >60 Normal >=60 [facility] Comment on above: Performed By: #### M RUBY #### [facility] [address] [place] [address] Dr. Karena Montero EGFR-NON AF STATELESS 60 mL/min/1.73m2 Normal >=60 [facility] Comment on above: Performed By: #### M RUBY #### [facility] [address] [address] [address] Karena Montero Globulin (S) [Mass/Vol] 4.3 g/dL Normal [facility] Comment on above: Performed By: #### M RUBY #### [facility] [address] [address] [address] Karena Montero Glucose [Mass/Vol] 303 mg/dL Critically high 74-106 [facility] Comment on above: Performed By: #### M RUBY #### [facility] [address] [address] [address] Karena Montero Potassium [Moles/Vol] 3.7 mmol/L Normal 3.5-5.1 [facility] Comment on above: Performed By: #### M RUBY #### [facility] [address] [address] [address] Karena Montero Protein [Mass/Vol] 7.6 g/dL Normal 6.4-8.2 [facility] Comment on above: Performed By: #### M RUBY #### [facility] [address] [address] [address] Karena Montero Sodium [Moles/Vol] 138 mmol/L Normal 136-145 [facility] Comment on above: Performed By: #### M RUBY #### [facility] [address] [place] [address] Dr. Karena Montero Urea nitrogen [Mass/Vol] 13.0 mg/dL Normal 7.0-18.0 [facility] Comment on above: Performed By: #### M RUBY #### [facility] [address] [address] [address] Karena Montero Urea nitrogen/Creatinine [Mass ratio] 13.4 mg/mg Normal [facility] Comment on above: Performed By: #### M RUBY #### [facility] [address] [place] [address] Dr. Karena Montero TSHon 01-29-2022 TSH 6.250 uIU/mL Critically high 0.358-3.740 [facility] Comment on above: Performed By: #### T 4, TSH #### [facility] [address] [place] [address] Dr. Karena Montero UA RANDOM W/MICROSCOPICon BACTERIA NONE SEEN Normal NONE SEEN [facility] Comment on above: Performed By: #### U AMIC #### [facility] [address] [place] [address] Dr. Karena Montero Bilirubin Ql (U) Negative Normal NEGATIVE [facility] Comment on above: Performed By: #### U AMIC #### [facility] [address] [address] [address] Karena Montero CAST NONE SEEN Normal NONE SEEN [facility] Comment on above: Performed By: #### U AMIC #### [facility] [address] [address] [address] Karena Montero Clarity (U) CLEAR Normal CLEAR [facility] Comment on above: Performed By: #### U AMIC #### [facility] [address] [address] [address] Karena Montero Color (U) YELLOW Normal YELLOW [facility] Comment on above: Performed By: #### U AMIC #### [facility] [address] [address] [address] Karena Montero Crystals LM Nom (Urine sed) NONE SEEN Normal NONE SEEN [facility] Comment on above: Performed By: #### U AMIC #### [facility] [address] [place] [address] Dr. Karena Montero Epithelial cells LM Ql (Urine sed) MODERATE Abnormal NONE SEEN /RARE [facility] Comment on above: Performed By: #### U AMIC #### [facility] [address] [place] [address] Dr. Karena Montero Glucose Ql (U) Negative Normal NEGATIVE [facility] [place] Comment on above: Performed By: #### U AMIC #### [facility] [address] [place] [address] Dr. Karena Montero Hemoglobin Ql (U) Negative Normal NEGATIVE [facility] Comment on above: Performed By: #### U AMIC #### [facility] [address] [place] [address] Dr. Karena Montero Ketones Ql (U) Negative Normal NEGATIVE [facility] [place] Comment on above: Performed By: #### U AMIC #### [facility] [address] [address] [address] Karena Montero LEUKOCYTES Negative Normal NEGATIVE [facility] Comment on above: Performed By: #### U AMIC #### [facility] [address] [address] [address] Karena Montero MUCOUS NONE SEEN Normal NONE SEEN [facility] Comment on above: Performed By: #### U AMIC #### [facility] [address] [address] [address] Karena Montero Nitrite Ql (U) Negative Normal NEGATIVE [facility] [place] Comment on above: Performed By: #### U AMIC #### [facility] [address] [address] [address] Karena Montero pH (U) 5.5 [pH] Normal 5-9 [facility] Comment on above: Performed By: #### U AMIC #### [facility] [address] [address] [address] Karena Montero RBC 0-2 Normal 0-2 [facility] Comment on above: Performed By: #### U AMIC #### [facility] [address] [place] [address] Dr. Karena Montero SPEC GRAVITY >=1.030 Abnormal 1.005-<=1.025 [facility] Comment on above: Performed By: #### U AMIC #### [facility] [address] [place] [address] Dr. Karena Montero UA PROTEIN TRACE Normal NEGATIVE/ TRACE [facility] Comment on above: Performed By: #### U AMIC #### [facility] [address] [place] [address] Dr. Karena Montero Urobilinogen Qn (U) 1.0 {Emily'U}/dL Normal 0.2 - 1. 0 [facility] Comment on above: Performed By: #### U AMIC #### [facility] [address] [place] [address] Dr. Karena Montero WBC 0-2 Abnormal NONE SEEN [facility] Comment on above: Performed By: #### U AMIC #### [facility] [address] [place] [address] Dr. Karena Montero Vital Signs Date Time Vital Sign Value Performing Clinician Facility 01-22-2025 15:25-0400 Body mass index (BMI) [Ratio] 47.55 kg/m2 Rita MATOS Work Phone: [facility] 01-22-2025 15:25-0400 Body weight 125.65 kg Rita Pulliam CNM Work Phone: [facility] 01-22-2025 15:25-0400 Diastolic blood pressure 70 mm[Hg] Rita Pulliam CNM Work Phone: [facility] 01-22-2025 15:25-0400 Systolic blood pressure 120 mm[Hg] Rita Pulliam CNM Work Phone: [facility] 11-13-2024 15:15-0400 Body mass index (BMI) [Ratio] 49.57 kg/m2 Katalina Aichholz OPTICAL GLASS INSPECTOR Work Phone: [facility] 11-13-2024 15:15-0400 Body temperature 98.49 [degF] Katalina Aichholz OPTICAL GLASS INSPECTOR Work Phone: [facility] 11-13-2024 15:15-0400 Body weight 131 kg Katalina Aichholz OPTICAL GLASS INSPECTOR Work Phone: [facility] 11-13-2024 15:15-0400 Diastolic blood pressure 78 mm[Hg] Katalina Aichholz OPTICAL GLASS INSPECTOR Work Phone: [facility] 11-13-2024 15:15-0400 Heart rate 90 /min Katalina Aichholz OPTICAL GLASS INSPECTOR Work Phone: [facility] 11-13-2024 15:15-0400 Respiratory rate 22 /min Katalina Aichholz OPTICAL GLASS INSPECTOR Work Phone: [facility] 11-13-2024 15:15-0400 SaO2% (BldA) [Mass fraction] 99 % Katalina Aichholz OPTICAL GLASS INSPECTOR Work Phone: [facility] 11-13-2024 15:15-0400 Systolic blood pressure 130 mm[Hg] Katalina Aichholz OPTICAL GLASS INSPECTOR Work Phone: [facility] 08-13-2024 14:12-0400 Body height 162.6 cm Katalina Aichholz OPTICAL GLASS INSPECTOR Work Phone: [facility] 08-13-2024 14:12-0400 Body mass index (BMI) [Ratio] 50.19 kg/m2 Katalina Noyolaz OPTICAL GLASS INSPECTOR Work Phone: [facility] 08-13-2024 14:12-0400 Body temperature 98.4 [degF] Katalina Noyolaz OPTICAL GLASS INSPECTOR Work Phone: [facility] 08-13-2024 14:12-0400 Body weight 132.63 kg Katalina Noyolaz OPTICAL GLASS INSPECTOR Work Phone: [facility] 08-13-2024 14:12-0400 Diastolic blood pressure 72 mm[Hg] Katalina Aubreeholz OPTICAL GLASS INSPECTOR Work Phone: [facility] 08-13-2024 14:12-0400 Heart rate 92 /min Katalina Noyolaz OPTICAL GLASS INSPECTOR Work Phone: [facility] 08-13-2024 14:12-0400 Respiratory rate 22 /min Katalina Noyolaz OPTICAL GLASS INSPECTOR Work Phone: [facility] 08-13-2024 14:12-0400 SaO2% (BldA) [Mass fraction] 95 % Katalinajamie Noyolaz OPTICAL GLASS INSPECTOR Work Phone: [facility] 08-13-2024 14:12-0400 Systolic blood pressure 120 mm[Hg] Katalina Noyolaz OPTICAL GLASS INSPECTOR Work Phone: [facility] 07-13-2024 10:41-0500 Body height 162.6 cm Sarah Khan MD Work Phone: [facility] 07-13-2024 10:41-0500 Body mass index (BMI) [Ratio] 50.12 kg/m2 Sarah Khan MD Work Phone: [facility] 07-13-2024 10:41-0500 Body weight 132.45 kg Sarah Khan MD Work Phone: [facility] 07-13-2024 10:41-0500 Diastolic blood pressure 90 mm[Hg] Sarah Khan MD Work Phone: [facility] 07-13-2024 10:41-0500 Heart rate 109 /min Sarah Khan MD Work Phone: [facility] 07-13-2024 10:41-0500 Respiratory rate 18 /min Sarah Khan MD Work Phone: [facility] 07-13-2024 10:41-0500 SaO2% (BldA) [Mass fraction] 97 % Sarah Khan MD Work Phone: [facility] 07-13-2024 10:41-0500 Systolic blood pressure 180 mm[Hg] Sarah Khan MD Work Phone: [facility] 05-09-2024 13:36-0500 Diastolic blood pressure 84 mm[Hg] Katalina Aichayleez OPTICAL GLASS INSPECTOR Work Phone: [facility] 05-09-2024 13:36-0500 Systolic blood pressure 138 mm[Hg] Katalina Aichholz OPTICAL GLASS INSPECTOR Work Phone: [facility] 05-09-2024 13:07-0500 Body height 162.6 cm Katalina Aichholz OPTICAL GLASS INSPECTOR Work Phone: [facility] 05-09-2024 13:07-0500 Body mass index (BMI) [Ratio] 50.29 kg/m2 Katalina Aichholz OPTICAL GLASS INSPECTOR Work Phone: [facility] 05-09-2024 13:07-0500 Body temperature 97.59 [degF] Katalina Aichholz OPTICAL GLASS INSPECTOR Work Phone: [facility] 05-09-2024 13:07-0500 Body weight 132.9 kg Katalina Aichholz OPTICAL GLASS INSPECTOR Work Phone: [facility] 05-09-2024 13:07-0500 Heart rate 93 /min Katalina Aichholz OPTICAL GLASS INSPECTOR Work Phone: [facility] 05-09-2024 13:07-0500 Respiratory rate 22 /min Katalina Aichholz OPTICAL GLASS INSPECTOR Work Phone: [place] [address]-04-2024 13:07-0500 SaO2% (BldA) [Mass fraction] 99 % Katalina Filemon OPTICAL GLASS INSPECTOR Work Phone: [facility] 03-08-2024 11:27-0400 Body height 162.6 cm Sarah Khan MD Work Phone: [facility] 03-08-2024 11:27-0400 Body mass index (BMI) [Ratio] 50.46 kg/m2 Sarah Khan MD Work Phone: [facility] 03-08-2024 11:27040 Body weight 133.36 kg Sarah Khan MD Work Phone: [facility] 03-08-2024 11:27-0400 Heart rate 87 /min Sarah Khan MD Work Phone: [facility] Comment on above: O2 SAT 98% 03-08-2024 11:27-0400 Respiratory rate 20 /min Sarah Khan MD Work Phone: [facility] 02-08-2024 14:11-0400 Body height 162.6 cm Katalina Colbert OPTICAL GLASS INSPECTOR Work Phone: [facility] 02-08-2024 14:11-0400 Body mass index (BMI) [Ratio] 51.36 kg/m2 Katalina Filemon OPTICAL GLASS INSPECTOR Work Phone: [facility] 02-08-2024 14:11-0400 Body temperature 97.5 [degF] Katalina Filemon OPTICAL GLASS INSPECTOR Work Phone: [facility] 02-08-2024 14:11-0400 Body weight 135.72 kg Katalina Filemon OPTICAL GLASS INSPECTOR Work Phone: [facility] 02-08-2024 14:11-0400 Diastolic blood pressure 72 mm[Hg] Katalina Colbert OPTICAL GLASS INSPECTOR Work Phone: [facility] 02-08-2024 14:11-0400 Heart rate 87 /min Katalina Colbert OPTICAL GLASS INSPECTOR Work Phone: [facility] 02-08-2024 14:11-0400 Respiratory rate 21 /min Katalina Colbert OPTICAL GLASS INSPECTOR Work Phone: [facility] 02-08-2024 14:11-0400 SaO2% (BldA) [Mass fraction] 96 % Katalina Colbert OPTICAL GLASS INSPECTOR Work Phone: [facility] 02-08-2024 14:11-0400 Systolic blood pressure 126 mm[Hg] Katalina Colbert OPTICAL GLASS INSPECTOR Work Phone: [facility] 09-13-2023 10:18-0400 Body height 165.1 cm Ramonita Phillips FRAME ASSEMBLER-TECHNICAL SOLUTIONS ENGINEER [facility] 09-13-2023 10:18-0400 Body mass index (BMI) [Ratio] 49.29 kg/m2 Cold Crateoll FRAME ASSEMBLER-TECHNICAL SOLUTIONS ENGINEER Work Phone: [facility] 09-13-2023 10:18-0400 Body weight 134.35 kg RamonitaWeesholl FRAME ASSEMBLER-TECHNICAL SOLUTIONS ENGINEER Work Phone: [facility] Encounters Encounter Date Encounter Type Care Provider Facility Start: 01-22-2025 End: 01-22-2025 Office outpatient visit 15 minutes Rita L Floro CNM Work Phone: [facility] Comment on above: Hot flashes (Primary Dx) Start: 01-22-2025 End: 01-22-2025 ambulatory RITA L FLORO Not Available Start: 01-22-2025 End: 01-22-2025 Bamboo flowsheet Rita L Floro CNM Work Phone: [facility] Start: 01-22-2025 End: 01-22-2025 Bamboo flowsheet Rita L Floro CNM Work Phone: [facility] Start: 01-14-2025 End: 01-15-2025 ambulatory [facility] Start: 01-13-2025 End: 01-13-2025 Orders Only Katalina Aichholz OPTICAL GLASS INSPECTOR Work Phone: [facility] Comment on above: Abnormal stress test (Primary Dx) Start: 01-11-2025 End: 01-11-2025 Clinisync Result Encounter Katalina Aichholz OPTICAL GLASS INSPECTOR Work Phone: [facility] External Department Unsolicited Start: 01-11-2025 End: 01-11-2025 Clinisync Result Encounter Katalina Aichholz OPTICAL GLASS INSPECTOR Work Phone: [facility] External Department Unsolicited Start: 01-09-2025 End: 01-09-2025 Refill Katalina Aichholz OPTICAL GLASS INSPECTOR Work Phone: [facility] Comment on above: Mixed hyperlipidemia ; Other chronic pain; Allergic rhinitis, unspecified seasonality, unspecified trigger Start: 01-08-2025 End: 01-08-2025 Refill Katalina Aichholz OPTICAL GLASS INSPECTOR Work Phone: [facility] Comment on above: Essential hypertensi on ; Bilateral lower extremity edema; Uncontrolled type 2 diabetes mellitus 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, with long-term current use of insulin (HCC); Chronic pain syndrome; Anxiety and depression Start: 12-21-2024 End: 12-23-2024 Refill Katalina Aichholz OPTICAL GLASS INSPECTOR Work Phone: [facility] Comment on above: Uncontrolled type 2 diabetes mellitus 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, with long-term current use of insulin (HCC) Start: 12-12-2024 End: 12-12-2024 Telephone encounter Katalina Aichholz OPTICAL GLASS INSPECTOR Work Phone: [facility] Start: 12-11-2024 End: 12-11-2024 ambulatory RITA PULLIAM Not Available Start: 12-04-2024 End: 12-05-2024 Refill Katalina Aichholz OPTICAL GLASS INSPECTOR Work Phone: [facility] Comment on above: Essential hypertensi on Start: 11-23-2024 End: 11-23-2024 Refill Zion Pringle MD Work Phone: [facility] Comment on above: Refill Request Start: 11-22-2024 End: 11-22-2024 Telephone encounter Zion Pringle MD Work Phone: [facility] Comment on above: Results; Future Appo intment Start: 11-21-2024 End: 11-21-2024 Telemedicine consultation with patient Zion Pringle MD Work Phone: [facility] Start: 11-21-2024 End: 11-21-2024 ambulatory Zion Pringle MD Work Phone: [facility] Comment on above: History of thyroid c ancer (Primary Dx) Start: 11-13-2024 End: 11-13-2024 ambulatory KATALINA AICHHOLZ Not Available Start: 11-13-2024 End: 11-13-2024 Office outpatient visit 25 minutes Katalina Filemon OPTICAL GLASS INSPECTOR Work Phone: [facility] Comment on above: Chest pain of unknow n etiology (Primary Dx); Essential hypertension (CMS/HCC); KARINE (obstructive sleep apnea); Class 3 severe obesity due to excess calories with serious comorbidity and body mass index (BMI) of 50.0 to 59.9 in adult; Uncontrolled type 2 diabetes mellitus 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, with long-term current use of insulin (CMS/HCC) Start: 11-13-2024 End: 11-13-2024 Bamboo flowsheet Katalina Aichcaritoz OPTICAL GLASS INSPECTOR Work Phone: [facility] Start: 11-13-2024 End: 11-13-2024 Bamboo flowsheet Katalina Aichholz OPTICAL GLASS INSPECTOR Work Phone: [facility] Start: 11-13-2024 End: 11-15-2024 Telephone encounter Zion Pringle MD Work Phone: [facility] Comment on above: Results; Patient Upd ate; Future Appointment Start: 11-08-2024 ambulatory Zion Silva ity:[facility] Start: 11-05-2024 End: 11-05-2024 Refill Katalina Aichholz OPTICAL GLASS INSPECTOR Work Phone: [facility] Comment on above: Hidradenitis suppura tiva of multiple sites (Primary Dx) Start: 11-03-2024 End: 11-03-2024 Refill Katalina Aichholz OPTICAL GLASS INSPECTOR Work Phone: [facility] Comment on above: Mixed hyperlipidemia (CMS/HCC) Start: 11-02-2024 End: 11-02-2024 Clinisync Result Encounter Katalina Aichholz OPTICAL GLASS INSPECTOR Work Phone: [facility] External Department Unsolicited Start: 11-02-2024 End: 11-02-2024 Clinisync Result Encounter Katalina Aichholz OPTICAL GLASS INSPECTOR Work Phone: [facility] Unsolicited Start: 10-14-2024 End: 10-14-2024 Refill Katalina Aichholz OPTICAL GLASS INSPECTOR Work Phone: [facility] Comment on above: Vitamin D deficiency , unspecified Start: 09-15-2024 End: 09-17-2024 Refill Katalina Aichholz OPTICAL GLASS INSPECTOR Work Phone: [facility] Comment on above: Uncontrolled type 2 diabetes mellitus 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, with long-term current use of insulin (CMS/[facility]) (Primary Dx) Start: 09-07-2024 End: 09-07-2024 Telephone encounter Sarah Khan MD Work Phone: [facility] Comment on above: Med Refill Start: 09-05-2024 End: 09-05-2024 Refill Katalina Aichholz OPTICAL GLASS INSPECTOR Work Phone: [facility] Comment on above: Essential hypertensi on (CMS/HCC) Start: 08-13-2024 End: 08-13-2024 ambulatory KATALINA AICHHOLZ Not Available Start: 08-13-2024 End: 08-13-2024 Office outpatient visit 25 minutes Katalina Aichholz OPTICAL GLASS INSPECTOR Work Phone: [facility] Comment on above: Anxiety and depressi on (CMS/HCC) (Primary Dx); KARINE (obstructive sleep apnea); Essential hypertension (CMS/HCC); Bilateral lower extremity edema; Class 3 severe obesity due to excess calories with serious comorbidity and body mass index (BMI) of 50.0 to 59.9 in adult (CMS/HCC); Papillary thyroid carcinoma (CMS/HCC); Uncontrolled type 2 diabetes mellitus 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, with long-term current use of insulin (CMS/HCC); Mixed hyperlipidemia (CMS/HCC) Start: 07-24-2024 End: 07-24-2024 Telephone encounter Zion Pringle MD Work Phone: [facility] Comment on above: Lab Orders; Patient Update; Future Appointment Start: 07-16-2024 End: 07-17-2024 Refill Katalina Colbert NP Work Phone: [facility] Comment on above: Essential hypertensi on (CMS/HCC); Bilateral lower extremity edema Start: 07-13-2024 End: 07-13-2024 Bamboo flowsheet Sarah Khan MD Work Phone: [facility] Start: 07-13-2024 End: 07-13-2024 Bamboo flowsheet Sarah Khan MD Work Phone: [facility] Start: 07-13-2024 End: 07-13-2024 Office outpatient visit 25 minutes Sarah Khan MD Work Phone: [facility] Comment on above: Type 2 diabetes didier itus 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, with long-term current use of insulin (CMS/HCC) (Primary Dx); Insulin long-term use (CMS/HCC); Hyperlipemia, mixed (CMS/HCC); Vitamin D deficiency; Encounter for dietary consultation; Class 3 severe obesity with serious comorbidity and body mass index (BMI) of 50.0 to 59.9 in adult, unspecified obesity type (CMS/HCC) Start: 07-13-2024 End: 07-13-2024 ambulatory SARAH KHAN Not Available Start: 06-13-2024 End: 06-13-2024 Refill Zion Pringle MD Work Phone: [facility] Comment on above: Refill Request Start: 06-12-2024 End: 06-12-2024 Clinisync Result Encounter Generic External Data Provider [facility] External Department Unsolicited Start: 06-12-2024 End: 06-12-2024 Clinisync Result Encounter Generic External Data Provider [facility] External Department Unsolicited Start: 05-12-2024 End: 05-13-2024 Refill Katalina Filemon OPTICAL GLASS INSPECTOR Work Phone: [facility] Comment on above: Chronic pain syndrom e Start: 05-09-2024 End: 05-09-2024 Bamboo flowsheet Katalina Aichayleez OPTICAL GLASS INSPECTOR Work Phone: [facility] Start: 05-09-2024 End: 05-09-2024 Bamboo flowsheet Katalina Aichholz OPTICAL GLASS INSPECTOR Work Phone: [facility] Start: 05-09-2024 End: 05-09-2024 ambulatory KATALINA AICHHOLZ Not Available Start: 05-09-2024 End: 05-09-2024 Office outpatient visit 25 minutes Katalina Dennysz OPTICAL GLASS INSPECTOR Work Phone: [facility] Comment on above: Essential hypertensi on ([facility]/HCC) (Primary Dx); KARINE (obstructive sleep apnea); Bilateral lower extremity edema; Vitamin D deficiency; Uncontrolled type 2 diabetes mellitus 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, with long-term current use of insulin (CMS/[facility]); Class 3 severe obesity due to excess calories with serious comorbidity and body mass index (BMI) of 50.0 to 59.9 in adult (CMS/HCC); Anxiety and depression (CMS/HCC); Allergic rhinitis, unspecified seasonality, unspecified trigger; Encounter for screening mammogram for malignant neoplasm of breast; Left foot pain; Other chronic pain Start: 04-17-2024 End: 04-17-2024 Refill Paulina Perez MA [facility] Comment on above: Mixed hyperlipidemia (CMS/HCC) Start: 04-10-2024 End: 04-10-2024 Refill Katalina Aichholz OPTICAL GLASS INSPECTOR Work Phone: [facility] Comment on above: Hidradenitis suppura tiva of multiple sites (Primary Dx) Start: 04-09-2024 End: 04-09-2024 Refill Katalina Colbert NP Work Phone: [facility] Comment on above: Yeast infection of t he vagina (Primary Dx) Start: 03-22-2024 End: 03-23-2024 ambulatory Zion Anthony Pringle MD Work Phone: [facility] Comment on above: History of thyroid c ancer (Primary Dx) Start: 03-22-2024 End: 03-22-2024 Telemedicine consultation with patient Zion Anthony Pringle MD Work Phone: [facility] Start: 03-22-2024 End: 03-26-2024 Telephone encounter Zion Pringle MD Work Phone: [facility] Comment on above: Lab Orders; Future A ppointment Start: 03-15-2024 End: 03-15-2024 Clinisync Result Encounter Generic External Data Provider [facility] External Department Unsolicited Start: 03-15-2024 End: 03-15-2024 Clinisync Result Encounter Generic External Data Provider [facility] External Department Unsolicited Start: 03-13-2024 ambulatory Zion Silva ity:[facility] Start: 03-08-2024 End: 03-08-2024 Bamboo flowsheet Sarah Khan MD Work Phone: [facility] Start: 03-08-2024 End: 03-08-2024 Lauren flowsbe Khan MD Work Phone: [facility] Start: 03-08-2024 End: 03-08-2024 ambulatory SARAH KHAN Not Available Start: 03-08-2024 End: 03-08-2024 Office outpatient visit 25 minutes Sarah Khan MD Work Phone: [facility] Comment on above: Type 2 diabetes didier itus 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, unspecified whether penitentiary insulin use (CMS/HCC) (Primary Dx); Insulin long-term use (CMS/HCC); Hyperlipemia, mixed (CMS/HCC); Vitamin D deficiency; Encounter for dietary consultation; Class 3 severe obesity with serious comorbidity and body mass index (BMI) of 50.0 to 59.9 in adult, unspecified obesity type (CMS/HCC) Start: 03-01-2024 End: 03-01-2024 Refill Katalina Colbert NP Work Phone: [facility] Comment on above: Essential hypertensi on (CMS/HCC) Start: 02-27-2024 End: 03-01-2024 Telephone encounter Sarah Khan MD Work Phone: [facility] Start: 02-23-2024 End: 02-23-2024 Refill Katalina Colbert NP Work Phone: [facility] Comment on above: Vitamin D deficiency (Primary Dx) Start: 02-08-2024 End: 02-08-2024 Office outpatient visit 25 minutes Katalina Colbert NP Work Phone: [facility] Comment on above: Essential hypertensi on (CMS/HCC) (Primary Dx); KARINE (obstructive sleep apnea); Arthritis of knee, right; Bilateral lower extremity edema; Class 3 severe obesity due to excess calories with serious comorbidity and body mass index (BMI) of 50.0 to 59.9 in adult (CMS/HCC); Malignant neoplasm of thyroid gland (CMS/HCC); Papillary thyroid carcinoma (CMS/HCC); Anxiety and depression ([facility]/HCC); Hidradenitis suppurativa of multiple sites Start: 02-08-2024 End: 02-23-2024 Refill Freddy Victoria MD Work Phone: [facility] Comment on above: Refill Request; Appo intment Start: 01-31-2024 End: 01-31-2024 Refill Katalina Colbert NP Work Phone: [facility] Comment on above: Anxiety and depressi on (CMS/HCC) Start: 09-30-2023 End: 09-30-2023 Telephone encounter Karena Benjamin CMA [facility] Start: 09-28-2023 End: 09-28-2023 Evaluation and management of inpatient LIV AZAR [facility] Start: 09-27-2023 End: 09-28-2023 Evaluation and management of inpatient LATOSHA CORBETT [facility] Start: 09-13-2023 End: 09-13-[address] [facility] Jamie PHILLIPS [facility] Start: 09-13-2023 End: 09-13-2023 Office outpatient new 30 minutes Ramonita Jamie Slaughters FRAME ASSEMBLER-TECHNICAL SOLUTIONS ENGINEER Work Phone: [facility] Comment on above: Encounter for colono scopy in patient with family history of colon cancer (Primary Dx) Start: 09-05-2023 Refill Zion armstrong MD Work Phone: [facility] Comment on above: Refill Request Start: 08-04-2023 Telephone encounter Zion Pringle MD Work Phone: [facility] Comment on above: Future Appointment Start: 07-07-2023 Refill Katalina Colbert OPTICAL GLASS INSPECTOR Work Phone: [facility] Comment on above: Acute non-recurrent sinusitis of other sinus (Primary Dx) Start: 05-04-2023 Refill Zion armstrong MD Work Phone: [facility] Comment on above: Refill Request Start: 03-24-2023 End: 03-24-2023 ambulatory Zion Pringle MD Work Phone: [facility] Comment on above: History of thyroid c ancer (Primary Dx) Start: 03-24-2023 End: 03-24-2023 Telemedicine consultation with patient Zion Pringle MD Work Phone: [facility] Start: 03-24-2023 Telephone encounter Zion Pringle MD Work Phone: [facility] Comment on above: Appointment Confirma tion Start: 01-03-2023 Refill Michell Soto [facility] Work Phone: [facility] Comment on above: Refill Request Start: 11-18-2022 End: 11-19-2022 ambulatory Zion Pringle MD Work Phone: [facility] Comment on above: Thymic cancer (HCC) (Primary Dx); Thyroid cancer (HCC) Start: 11-18-2022 End: 11-19-2022 Telemedicine consultation with patient Zion Pringle MD Work Phone: [facility] Start: 11-18-2022 Telephone encounter Zion Pringle MD Work Phone: [facility] Comment on above: Future Appointment Start: 10-12-2022 End: 10-13-2022 ambulatory TARIK KATALINA FILEMON Facility:[facility] Start: 09-09-2022 End: 09-09-2022 ambulatory Zion Pringle MD Work Phone: [facility] Comment on above: Thyroid cancer (HCC) (Primary Dx) Start: 09-09-2022 End: 09-09-2022 Telemedicine consultation with patient Zion Pringle MD Work Phone: [facility] Start: 09-08-2022 End: 09-09-[address] WILLY PRINGLE Facility:[facility] Start: 09-08-2022 Telephone encounter Zion Pringle MD Work Phone: Hematology/Oncology Comment on above: Orders faxed Start: 09-06-2022 Patient encounter procedure Ccf Provider [facility] Department Start: 06-20-2022 End: 06-21-2022 ambulatory MARTINA BLOUNT . Facility:[facility]1 Start: 06-10-2022 End: 06-10-2022 ambulatory Zion Pringle MD Work Phone: Radiation Oncology Comment on above: Thyroid cancer (HCC) (Primary Dx) Start: 06-10-2022 End: 06-10-2022 Telemedicine consultation with patient Zion Pringle MD Work Phone: [place] Start: 06-02-2022 End: 06-03-2022 ambulatory Zion Pringle MD Work Phone: Radiation Oncology Comment on above: Thyroid cancer (HCC) (Primary Dx) Start: 06-02-2022 End: 06-03-2022 Telemedicine consultation with patient Zion Pringle MD Work Phone: [place] Start: 05-27-2022 End: 05-28-[address] WILLY PRINGLE Facility:[facility] Start: 04-27-2022 End: 04-28-2022 ambulatory TARIK PINEDAJUANY Facility:[facility] Start: 04-16-2022 Refill G Anthony armstrong MD Work Phone: Radiation Oncology Comment on above: Refill Request Start: 02-18-2022 End: 02-19-2022 ambulatory TARIK PINEDAJUANY Facility:[facility] Start: 02-04-2022 End: 02-05-2022 ambulatory Zion Pringle MD Work Phone: Radiation Oncology Comment on above: Thyroid cancer (HCC) (Primary Dx) Start: 02-04-2022 End: 02-05-2022 Telemedicine consultation with patient Zion Anthony Pringle MD Work Phone: [place] Start: 02-03-2022 End: 02-03-2022 ambulatory TARIK PINEDAJUANY Facility:[facility] Start: 01-29-2022 End: 01-30-[address] WILLY PRINGLE Facility:[facility] Start: 11-05-2021 End: 11-05-2021 ambulatory Zion Pringle MD Work Phone: Radiation Oncology Comment on above: Thyroid cancer (HCC) (Primary Dx) Start: 11-05-2021 End: 11-05-2021 Telemedicine consultation with patient Zion Pringle MD Work Phone: [place] Start: 10-13-2021 End: 10-13-2021 ambulatory Zion Pringle MD Work Phone: Radiation Oncology Comment on above: Thyroid cancer (HCC) (Primary Dx) Start: 10-13-2021 End: 10-13-2021 Telemedicine consultation with patient Zion Pringle MD Work Phone: [place] Start: 05-27-2020 End: 05-27-2020 Patient encounter procedure External Provider [facility] Start: 05-27-2020 Results Only External Provider Exter nal-NonCCF Procedures Date Procedure Procedure Detail Performing Clinician Start: 01-11-2025 NM LACEY PERF SPECT REST STR Katalina Colbert OPTICAL GLASS INSPECTOR Work Phone: Start: 11-02-2024 ALL CBC WITH AUTO DIFF Katalina Colbert OPTICAL GLASS INSPECTOR Work Phone: Start: 07-13-2024 Gluc bld gluc mntr d ev cleared fda spec home use Sarah Khan MD Work Phone: Start: 06-12-2024 ALL THYROID STIM HORMONE Generic External Data Provider Start: 06-12-2024 ALL THYROXINE (T4) Gene rhiannon External Data Provider Start: 06-12-2024 Mammography Sarah portillo MD Work Phone: Start: 03-15-2024 ALL THYROID STIM HORMONE Generic External Data Provider Start: 03-15-2024 ALL THYROXINE (T4) Gene rhiannon External Data Provider Start: 03-08-2024 Gluc bld gluc mntr d ev cleared fda spec home use Sarah Khan MD Work Phone: Start: 09-27-2023 Colonoscopy Katalina bardales OPTICAL GLASS INSPECTOR Work Phone: Start: 06-09-2023 Microscopic observat ion [Identifier] in Cervix by Cyto stain Katalina Colbert OPTICAL GLASS INSPECTOR Work Phone: Start: 05-04-2023 Mammography Katalina bardales OPTICAL GLASS INSPECTOR Work Phone: Start: 02-01-2022 Adult depression scr eening assessment SOFY Pringle MD Work Phone: Start: 09-28-2021 Adult depression scr eening assessment SOFY Pringle MD Work Phone: Start: 05-27-2020 End: 05-27-2020 EXTERNAL IMAGING External Provider Start: 05-27-2020 EXTERNAL CARDIOLOGY Ext ernal Provider Start: 05-27-2020 End: 05-27-2020 EXTERNAL LAB External Provider Start: 05-27-2020 EXTERNAL PROCEDURE Exte rnal Provider Start: 08-31-2018 Colonoscopy Ramonita Sotelo jez FRAME ASSEMBLER-[employer]CH[employer]UTIONS ENGINEER Work Phone: Plan of Treatment Date Care Activity Detail Author Start: 09-26-2028 Screening for malignant neoplasm of colon [facility] Start: 07-13-2027 Diabetes Screening Diabetes Screening [facility] Start: 03-08-2027 Diabetes Screening Diabetes Screening [facility] Start: 06-09-2026 Screening for malignant neoplasm of cervix [facility] Start: 05-10-2026 Glaucoma screening Diabetes: Retinopathy Screening [facility] Start: 11-29-2025 End: 02-28-2026 Thyroglobulin and Thyrogobulin Ab panel - Serum or Plasma THYROGLOBULIN, SERUM WITH REFLEX TO IA OR LC-MS/MS Lab Routine History of thyroid cancer Expected: 11/29/2025, Expires: 02/28/2026 [facility] Comment on above: Expected: 11/29/2025, Expires: Start: 11-29-2025 End: 11-29-2025 Thyrotropin [Units/volume] in Serum or Plasma THYROID STIMULATING HORMONE Lab Routine History of thyroid cancer Expected: 11/29/2025, Expires: 11/29/2025 [facility] Work Phone: Comment on above: Expected: 11/29/2025, Expires: Start: 11-29-2025 End: 11-29-2025 Thyroxine (T4) [Mass/volume] in Serum or Plasma T4/THYROXINE Lab Routine History of thyroid cancer Expected: 11/29/2025, Expires: 11/29/2025 [facility] Comment on above: Expected: 11/29/2025, Expires: Start: 11-29-2025 End: 11-29-2025 Triiodothyronine (T3) [Mass/volume] in Serum or Plasma T3 Lab Routine History of thyroid cancer Expected: 11/29/2025, Expires: 11/29/2025 [facility] Comment on above: Expected: 11/29/2025, Expires: Start: 11-27-2025 End: 11-27-2025 Follow-up encounter 11/27/2025 4:00 PM EDT [facility] Radiation Oncology [address] [place] [address] Zion Pringle MD [address] [place] [address] [place] [address] Follow up after recheck labs Radiation Oncology Comment on above: Follow up after recheck labs Start: 11-22-2025 End: 02-21-2026 Thyroglobulin and Thyrogobulin Ab panel - Serum or Plasma THYROGLOBULIN, SERUM WITH REFLEX TO IA OR LC-MS/MS Lab Routine History of thyroid cancer Expected: 11/22/2025 (Approximate), Expires: 02/21/2026 [facility] Comment on above: Expected: 11/22/2025 (Approximate), Expi res: 02/21/2026 Start: 11-22-2025 End: 02-21-2026 Thyrotropin [Units/volume] in Serum or Plasma THYROID STIMULATING HORMONE Lab Routine History of thyroid cancer Expected: 11/22/2025 (Approximate), Expires: 02/21/2026 [facility] Comment on above: Expected: 11/22/2025 (Approximate), Expi res: 02/21/2026 Start: 11-22-2025 End: 02-21-2026 Thyroxine (T4) [Mass/volume] in Serum or Plasma T4/THYROXINE Lab Routine History of thyroid cancer Expected: 11/22/2025 (Approximate), Expires: 02/21/2026 [facility] Work Phone: Comment on above: Expected: 11/22/2025 (Approximate), Expi res: 02/21/2026 Start: 11-21-2025 End: 11-21-2025 Patient encounter procedure 11/21/2025 11:30 AM EDT Office Visit [facility] [address] [place] [address] labs [facility] Comment on above: labs Start: 06-12-2025 Screening for malignant neoplasm of breast Mammogram [facility] Start: 05-15-2025 End: 05-15-2025 Patient encounter procedure 05/15/2025 1:00 PM EST Office Visit [facility] [address] [place] [address] Rita Pulliam, COLBY [address] [place] [address] [facility] OBGYN Start: 02-28-2025 Glaucoma screening Diabetes: Retinopathy Screening [facility] Start: 02-05-2025 End: 02-05-2025 Patient encounter procedure 02/05/2025 11:30 AM EDT Office Visit [facility] [address] [place] [address] Katalina Colbert, NETTIE [address] [place] [phone] [facility] Start: 02-04-2025 Influenza vaccination Influenza Vaccine (#1) [facility] Start: 01-22-2025 End: 01-22-2025 Patient encounter procedure [facility] Comment on above: Arrived Start: 01-10-2025 End: 01-10-2025 Patient encounter procedure 01/10/2025 1:20 PM EDT Office Visit [facility] [address] [place] [address] Katalina Colbert, OPTICAL GLASS INSPECTOR [address] [place] [phone] [facility] Start: 12-12-2024 End: 12-12-2024 Patient encounter procedure 12/12/2024 1:20 PM EDT Office Visit [facility] [address] [place] [address] Katalina Colbert, OPTICAL GLASS INSPECTOR [address] [place] [phone] [facility] Start: 12-11-2024 End: 12-11-2024 Patient encounter procedure 12/11/2024 2:00 PM EDT Office Visit [facility] [address] [place] [phone] Rita Pulliam, CNM [address] [place] [address] [facility] Start: 12-06-2024 Urine screening for protein Diabetes: Urine Protein Screening [facility] Start: 11-22-2024 End: 11-22-2024 Patient encounter procedure 11/22/2024 3:00 PM EDT Office Visit [facility] [address] [place] [phone] Rita Pulliam, CNM [address] [place] [address] [facility] Start: 11-21-2024 End: 11-21-2024 Follow-up encounter 11/21/2024 4:00 PM EDT [facility] Radiation Oncology [address] [place] [address] [place] [address] Zion Pringle MD [address] [place] [address] [place] [address] Follow up after recheck labs Radiation Oncology Comment on above: Follow up after recheck labs Start: 11-13-2024 End: 11-13-2024 Patient encounter procedure 11/13/2024 3:00 PM EDT Office Visit [facility] [address] [place] [address] Katalina Colbert NP [address] [place] [address] [facility] Start: 11-13-2024 End: 11-13-2025 Cardiac stress study Procedure STRESS TEST LEXISCAN Imaging Routine Essential hypertension (CMS/HCC) KARINE (obstructive sleep apnea) Uncontrolled type 2 diabetes mellitus 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, with long-term current use of insulin (CMS/HCC) Chest pain of unknown etiology Expected: 11/13/2024 (Approximate), Expires: 11/13/2025 [facility] Work Phone: Comment on above: Expected: 11/13/2024 (Approximate), Expi res: 11/13/2025 Start: 11-13-2024 End: 11-13-2026 Echocardiogram 2D complete Echocardiogram 2D complete Echocardiography Routine Essential hypertension (CMS/HCC) KARINE (obstructive sleep apnea) Uncontrolled type 2 diabetes mellitus 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, with long-term current use of insulin (CMS/HCC) Chest pain of unknown etiology Expected: 11/13/2024 (Approximate), Expires: 11/13/2026 [facility] Comment on above: Expected: 11/13/2024 (Approximate), Expi res: 11/13/2026 Start: 11-08-2024 End: 11-08-2024 Patient encounter procedure 11/08/2024 11:20 AM EDT Office Visit [facility] [address] [place] [address] Sarah Khan MD [address] [place] [address] [facility] Start: 11-01-2024 End: 11-01-2024 Follow-up encounter 11/01/2024 2:30 PM EDT [facility] Radiation Oncology [address] [place] [address] [place] [address] [place] [address] [place] [address] Follow up after recheck labs Radiation Oncology Comment on above: Follow up after recheck labs Start: 10-21-2024 End: 01-20-2025 Thyroglobulin and Thyrogobulin Ab panel - Serum or Plasma THYROGLOBULIN, SERUM WITH REFLEX TO IA OR LC-MS/MS Lab Routine History of thyroid cancer Expected: 10/21/2024 (Approximate), Expires: 01/20/2025 [facility] Comment on above: Expected: 10/21/2024 (Approximate), Expi res: 01/20/2025 Start: 10-21-2024 End: 01-20-2025 Thyrotropin [Units/volume] in Serum or Plasma THYROID STIMULATING HORMONE Lab Routine History of thyroid cancer Expected: 10/21/2024 (Approximate), Expires: 01/20/2025 [facility] Comment on above: Expected: 10/21/2024 (Approximate), Expi res: 01/20/2025 Start: 10-21-2024 End: 01-20-2025 Thyroxine (T4) [Mass/volume] in Serum or Plasma T4/THYROXINE Lab Routine History of thyroid cancer Expected: 10/21/2024 (Approximate), Expires: 01/20/2025 [facility] Work Phone: Comment on above: Expected: 10/21/2024 (Approximate), Expi res: 01/20/2025 Start: 10-10-2024 Hemoglobin A1c measurement Diabetes: Hemoglobin A1C [facility] Start: 09-26-2024 Adult BMI Screening Adult BMI Screening [facility] Start: 09-26-2024 Tobacco Screening Tobacco Screening [facility] Start: 09-12-2024 Adult BMI Screening Adult BMI Screening [facility] Start: 09-12-2024 Tobacco Screening Tobacco Screening [facility] Start: 08-13-2024 End: 08-13-2025 CBC W Auto Differential panel - Blood CBC and differential Lab Routine Uncontrolled type 2 diabetes mellitus 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, with long-term current use of insulin (CMS/HCC) Expected: 08/13/2024 (Approximate), Expires: 08/13/2025 [facility] Work Phone: Comment on above: Expected: 08/13/2024 (Approximate), Expi res: 08/13/2025 Start: 08-13-2024 End: 08-13-2025 Comprehensive metabolic 2000 panel - Serum or Plasma Comprehensive metabolic panel Lab Routine Essential hypertension (CMS/HCC) Uncontrolled type 2 diabetes mellitus 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, with long-term current use of insulin (CMS/HCC) Expected: 08/13/2024 (Approximate), Expires: 08/13/2025 [facility] Comment on above: Expected: 08/13/2024 (Approximate), Expi res: 08/13/2025 Start: 08-13-2024 End: 08-13-2025 Microalbumin/Creatinine panel in random Urine Microalbumin / creatinine, urine ratio Lab Routine Essential hypertension (CMS/HCC) Uncontrolled type 2 diabetes mellitus 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, with long-term current use of insulin (CMS/HCC) Expected: 08/13/2024 (Approximate), Expires: 08/13/2025 [facility] Comment on above: Expected: 08/13/2024 (Approximate), Expi res: 08/13/2025 Start: 08-13-2024 End: 08-13-2024 Patient encounter procedure 08/13/2024 2:00 PM EDT Office Visit [facility] [address] [place] [address] Katalina Colbert NP [address] [place] [address] [facility] Start: 08-13-2024 End: 08-13-2025 Urinalysis complete panel - Urine Urinalysis with reflex microscopic (clean catch) Lab Routine Essential hypertension (CMS/HCC) Uncontrolled type 2 diabetes mellitus 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, with long-term current use of insulin (CMS/HCC) Expected: 08/13/2024 (Approximate), Expires: 08/13/2025 [facility] Comment on above: Expected: 08/13/2024 (Approximate), Expi res: 08/13/2025 Start: 07-25-2024 End: 07-25-2024 Follow-up encounter Radiation Oncology Comment on above: Follow up after recheck labs Start: 07-23-2024 End: 10-22-2024 Thyroglobulin and Thyrogobulin Ab panel - Serum or Plasma THYROGLOBULIN, SERUM WITH REFLEX TO IA OR LC-MS/MS Lab Routine History of thyroid cancer Expected: 07/23/2024 (Approximate), Expires: 10/22/2024 [facility] Comment on above: Expected: 07/23/2024 (Approximate), Expi res: 10/22/2024 Start: 07-23-2024 End: 10-22-2024 Thyrotropin [Units/volume] in Serum or Plasma THYROID STIMULATING HORMONE Lab Routine History of thyroid cancer Expected: 07/23/2024 (Approximate), Expires: 10/22/2024 [facility] Comment on above: Expected: 07/23/2024 (Approximate), Expi res: 10/22/2024 Start: 07-23-2024 End: 10-22-2024 Thyroxine (T4) [Mass/volume] in Serum or Plasma T4/THYROXINE Lab Routine History of thyroid cancer Expected: 07/23/2024 (Approximate), Expires: 10/22/2024 [facility] Work Phone: Comment on above: Expected: 07/23/2024 (Approximate), Expi res: 10/22/2024 Start: 07-13-2024 End: 07-13-2024 Patient encounter procedure 07/13/2024 10:50 AM EST Office Visit [facility] [address] [place] [phone] Sarah Khan MD [address] [place] [address] Arrived [facility] Comment on above: Arrived Start: 07-12-2024 End: 07-12-2024 Patient encounter procedure 07/12/2024 11:20 AM EST Office Visit [facility] [address] [place] [phone] Sarah Khan MD [address] [place] [address] [facility] Start: 06-08-2024 Hemoglobin A1c measurement Diabetes: Hemoglobin A1C [facility] Start: 05-09-2024 End: 07-10-2025 MG Breast - bilateral Screening Bilateral screening mammogram Imaging Routine Encounter for screening mammogram for malignant neoplasm of breast Expected: 05/09/2024 (Approximate), Expires: 07/10/2025 [facility] Work Phone: Comment on above: Expected: 05/09/2024 (Approximate), Expi res: 07/10/2025 Start: 05-09-2024 End: 05-09-2024 Patient encounter procedure 05/09/2024 1:00 PM EST Office Visit [facility] [address] [place] [address] Katalina Colbert, NETTIE [address] [place] [address] [facility] Start: 05-04-2024 Screening for malignant neoplasm of breast Mammogram [facility] Start: 04-20-2024 Shingrix Vaccine (2 of 2) Shingrix Vaccine (2 of 2) [facility] Start: 04-05-2024 Influenza vaccination Influenza Vaccine (#1) [facility] Comment on above: Postponed from 02/05/2024 (Patient Does Not Have Time) Start: 03-13-2024 End: 03-13-2024 Follow-up encounter 03/13/2024 3:15 PM EDT [facility] Radiation Oncology [address] [place] [address] Zion Pringle MD [address] [place] [address] [place] [address] 4 Month Follow UP Radiation Oncology Comment on above: 4 Month Follow UP Start: 03-07-2024 End: 03-07-2024 Patient encounter procedure 03/07/2024 11:20 AM EDT Office Visit [facility] [address] [place] [address] Sarah Khan MD [address] [place] [address] [facility] Start: 02-11-2024 DIABETES SCREEN DIABETES SCREEN [facility] Start: 02-11-2024 Diabetes Screening Diabetes Screening [facility] Start: 02-08-2024 End: 02-08-2024 Patient encounter procedure 02/08/2024 2:00 PM EDT Office Visit [facility] [address] [place] [address] Katalina Colbert, OPTICAL GLASS INSPECTOR [address] [place] [address] [facility] Start: 02-07-2024 Hemoglobin A1c measurement Diabetes: Hemoglobin A1C [facility] Start: 02-05-2024 Covid-19 Vaccine ( season) Covid-19 Vaccine ( season) [facility] Start: 02-05-2024 Covid-19 Vaccine ( season) Covid-19 Vaccine ( season) [facility] Start: 02-05-2024 Influenza vaccination [facility] Start: 10-06-2023 End: 10-06-2023 Admission to same day surgery center 10/06/2023 8:00 AM EDT - 10/06/2023 8:30 AM EDT Surgery [facility] [address] [place] [phone] Latosha Corbett DO [address] [place] [address] [phone] COLONOSCOPY DIAGNOSTIC / SCREENING [36886 (CPT )] [facility] Comment on above: COLONOSCOPY DIAGNOSTIC / SCREENING [4537 8 (CPT )] Start: 10-06-2023 End: 10-06-2023 Colonoscopy flx dx w/collj spec when pfrmd COLONOSCOPY DIAGNOSTIC / SCREENING Family history of colon cancer 10/06/2023 8:00 AM EDT [facility] Start: 10-06-2023 Subsequent hospital visit by physician 10/06/2023 8:00 AM EDT Hospital Encounter [facility] [address] [place] [phone] Latosha Corbett DO [address] [place] [address] [phone] [facility] Start: 09-29-2023 End: 09-29-2023 ambulatory 09/29/2023 3:10 PM EDT Support Visit [facility] [address] [place] [address] [facility] Start: 09-08-2023 End: 09-08-2023 Patient encounter procedure 09/08/2023 6:00 PM EDT Office Visit [facility] [address] [place] [address] Katalina Colbert, NETTIE [address] [place] [address] [facility] Start: 09-01-2023 Screening for malignant neoplasm of colon Colonoscopy [facility] Start: 08-22-2023 Screening for malignant neoplasm of colon [facility] Start: 08-09-2023 Influenza vaccination Influenza Vaccine (#1) [facility] Comment on above: Postponed from 02/04/2023 (Other Patient Reasons) Start: 07-25-2023 End: 10-24-2023 THYROGLOBULIN BY MASS SPECTROMETRY THYROGLOBULIN BY MASS SPECTROMETRY Lab Routine History of thyroid cancer Expected: 07/25/2023, Expires: 10/24/2023 [facility] Work Phone: Comment on above: Expected: 07/25/2023, Expires: Start: 07-25-2023 End: 03-24-2024 Thyrotropin [Units/volume] in Serum or Plasma TSH BLD Lab Routine History of thyroid cancer Expected: 07/25/2023, Expires: 03/24/2024 [facility] Work Phone: Comment on above: Expected: 07/25/2023, Expires: Start: 07-25-2023 End: 03-24-2024 Thyroxine (T4) [Mass/volume] in Serum or Plasma T4/THYROXINE BLOOD Lab Routine History of thyroid cancer Expected: 07/25/2023, Expires: 03/24/2024 [facility] Work Phone: Comment on above: Expected: 07/25/2023, Expires: 4 Start: 07-25-2023 End: 03-24-2024 Triiodothyronine (T3) [Mass/volume] in Serum or Plasma T3 BLD Lab Routine History of thyroid cancer Expected: 07/25/2023, Expires: 03/24/2024 [facility] Work Phone: Comment on above: Expected: 07/25/2023, Expires: 4 Start: 06-06-2023 Depression Assessment Depression Assessment [facility] Start: 02-23-2023 End: 04-25-2023 Thyrotropin [Units/volume] in Serum or Plasma TSH BLD Lab Routine Thyroid cancer (HCC) Expected: 02/23/2023, Expires: 04/25/2023 [facility] Work Phone: Comment on above: Expected: 02/23/2023, Expires: 3 Start: 02-23-2023 End: 04-25-2023 Thyroxine (T4) [Mass/volume] in Serum or Plasma T4/THYROXINE BLOOD Lab Routine Thyroid cancer (HCC) Expected: 02/23/2023, Expires: 04/25/2023 [facility] Work Phone: Comment on above: Expected: 02/23/2023, Expires: 3 Start: 02-04-2023 Covid-19 Vaccine () Covid-19 Vaccine () [facility] Start: 02-04-2023 Influenza vaccination [facility] Start: 02-01-2023 Adult depression screening assessment DEPRESSION SCREENING [facility] Start: 11-09-2022 End: 09-10-2023 Thyrotropin [Units/volume] in Serum or Plasma TSH BLD Lab Routine Thyroid cancer (HCC) Expected: 11/09/2022, Expires: 09/10/2023 [facility] Work Phone: Comment on above: Expected: 11/09/2022, Expires: Start: 11-09-2022 End: 09-10-2023 Thyroxine (T4) [Mass/volume] in Serum or Plasma T4/THYROXINE BLOOD Lab Routine Thyroid cancer (HCC) Expected: 11/09/2022, Expires: 09/10/2023 [facility] Work Phone: Comment on above: Expected: 11/09/2022, Expires: Start: 11-09-2022 End: 09-10-2023 Triiodothyronine (T3) [Mass/volume] in Serum or Plasma T3 BLD Lab Routine Thyroid cancer (HCC) Expected: 11/09/2022, Expires: 09/10/2023 [facility] Work Phone: Comment on above: Expected: 11/09/2022, Expires: Start: 09-28-2022 Adult depression screening assessment DEPRESSION SCREENING [facility] Start: 09-08-2022 End: 06-10-2023 Thyrotropin [Units/volume] in Serum or Plasma TSH BLD Lab Routine Thyroid cancer (HCC) Expected: 09/08/2022, Expires: 06/10/2023 [facility] Work Phone: Comment on above: Expected: 09/08/2022, Expires: Start: 09-08-2022 End: 06-10-2023 Thyroxine (T4) [Mass/volume] in Serum or Plasma T4/THYROXINE BLOOD Lab Routine Thyroid cancer (HCC) Expected: 09/08/2022, Expires: 06/10/2023 [facility] Work Phone: Comment on above: Expected: 09/08/2022, Expires: Start: 09-08-2022 End: 06-10-2023 Triiodothyronine (T3) [Mass/volume] in Serum or Plasma T3 BLD Lab Routine Thyroid cancer (HCC) Expected: 09/08/2022, Expires: 06/10/2023 [facility] Work Phone: Comment on above: Expected: 09/08/2022, Expires: Start: 06-06-2022 DEPRESSION ASSESSMENT DEPRESSION ASSESSMENT [facility] Start: 05-14-2022 End: 07-14-2022 Thyroglobulin Ab [Units/volume] in Serum or Plasma THYROGLOBULIN AB Lab Routine Thyroid cancer (HCC) Expected: 05/14/2022, Expires: 07/14/2022 [facility] Work Phone: Comment on above: Expected: 05/14/2022, Expires: 3 Start: 05-14-2022 End: 07-14-2022 Thyroglobulin and Thyrogobulin Ab panel - Serum or Plasma THYROGLOBULIN BLD Lab Routine Thyroid cancer (HCC) Expected: 05/14/2022, Expires: 07/14/2022 [facility] Work Phone: Comment on above: Expected: 05/14/2022, Expires: 3 Start: 05-14-2022 End: 02-12-2023 Thyrotropin [Units/volume] in Serum or Plasma TSH BLD Lab Routine Thyroid cancer (HCC) Expected: 05/14/2022, Expires: 02/12/2023 [facility] Work Phone: Comment on above: Expected: 05/14/2022, Expires: 3 Start: 05-14-2022 End: 02-12-2023 Thyroxine (T4) [Mass/volume] in Serum or Plasma T4/THYROXINE BLOOD Lab Routine Thyroid cancer (HCC) Expected: 05/14/2022, Expires: 02/12/2023 [facility] Work Phone: Comment on above: Expected: 05/14/2022, Expires: 3 Start: 05-14-2022 End: 02-12-2023 Triiodothyronine (T3) [Mass/volume] in Serum or Plasma T3 BLD Lab Routine Thyroid cancer (HCC) Expected: 05/14/2022, Expires: 02/12/2023 [facility] Work Phone: Comment on above: Expected: 05/14/2022, Expires: 3 Start: 02-05-2022 End: 04-07-2022 T3 BLD T3 BLD Lab Routine Thyroid cancer (HCC) Expected: 02/05/2022, Expires: 04/07/2022 [facility] Work Phone: Comment on above: Expected: 02/05/2022, Expires: 2 Start: 02-05-2022 End: 04-07-2022 Thyrotropin [Units/volume] in Serum or Plasma TSH BLD Lab Routine Thyroid cancer (HCC) Expected: 02/05/2022, Expires: 04/07/2022 [facility] Work Phone: Comment on above: Expected: 02/05/2022, Expires: 2 Start: 02-05-2022 End: 04-07-2022 Thyroxine (T4) [Mass/volume] in Serum or Plasma T4/THYROXINE BLOOD Lab Routine Thyroid cancer (HCC) Expected: 02/05/2022, Expires: 04/07/2022 [facility] Work Phone: Comment on above: Expected: 02/05/2022, Expires: 2 Start: 02-04-2022 Influenza vaccination [facility] Start: 12-16-2021 End: 02-15-2022 Thyrotropin [Units/volume] in Serum or Plasma TSH BLD Lab Routine Thyroid cancer (HCC) Expected: 12/16/2021, Expires: 02/15/2022 [facility] Work Phone: Comment on above: Expected: 12/16/2021, Expires: 2 Start: 12-16-2021 End: 02-15-2022 Thyroxine (T4) [Mass/volume] in Serum or Plasma T4/THYROXINE BLOOD Lab Routine Thyroid cancer (HCC) Expected: 12/16/2021, Expires: 02/15/2022 [facility] Work Phone: Comment on above: Expected: 12/16/2021, Expires: 2 Start: 06-06-2021 DEPRESSION ASSESSMENT DEPRESSION ASSESSMENT [facility] Start: 02-05-2020 Influenza vaccination INFLUENZA (#1) [facility] Start: 04-26-2018 Hemoglobin A1c measurement Diabetes: Hemoglobin A1C [facility] Start: 2017 Administration of varicella zoster vaccine Zoster (Shingles) Vaccine (1 of 2) [facility] Start: 2017 Pneumococcal Vaccine: 50+ (1 of 1 - PCV) Pneumococcal Vaccine: 50+ (1 of 1 - PCV) [facility] Start: 2017 Screening for malignant neoplasm of colon [facility] Start: 2017 SHINGRIX VACCINE (1 of 2) SHINGRIX VACCINE (1 of 2) [facility] Start: 01-25-2012 COLOGUARD (FIT-DNA) COLOGUARD (FIT-DNA) [facility] Start: 01-25-2012 Colonoscopy COLONOSCOPY [facility] Start: 01-25-2012 COLORECTAL CANCER SCREENING COLORECTAL CANCER SCREENING [facility] Start: 01-25-[address] COLONOGRAPHY [facility] Start: 01-25-2012 DIABETES SCREEN DIABETES SCREEN [facility] Start: 01-25-2012 FECAL OCCULT BLOOD FECAL OCCULT BLOOD [facility] Start: 01-25-2012 Lipid 1996 panel - Serum or Plasma Lipid Screening [facility] Start: 01-25-2012 Lipid panel Lipid Screening [facility] Start: 01-25-2012 LIPID SCREEN LIPID SCREEN [facility] Start: 01-25-2012 Screening for malignant neoplasm of colon [facility] Start: 01-25-2012 SIGMOIDOSCOPY SIGMOIDOSCOPY [facility] Start: 2007 Mammography [facility] Start: 2007 Screening for malignant neoplasm of breast Mammogram Screening [facility] Start: 1997 HPV TESTING HPV TESTING [facility] Start: 1997 Screening for malignant neoplasm of cervix [facility] Start: 01-25-1988 PAP TESTING PAP TESTING [facility] Start: 01-25-1988 Screening for malignant neoplasm of cervix [facility] Start: 1986 DTaP,Tdap and Td Vaccines (1 - Tdap) DTaP,Tdap and Td Vaccines (1 - Tdap) [facility] Start: 1986 Hepatitis B Vaccine (1 of 3 - 19+ 3-dose series) Hepatitis B Vaccine (1 of 3 - 19+ 3-dose series) [facility] Start: 1986 Urine microalbumin profile [facility] Start: 1986 Urine screening for protein Diabetes: Urine Protein Screening [facility] Start: 1985 Adult BMI Follow Up Plan Adult BMI Follow Up Plan [facility] Start: 1985 Anxiety Screening Anxiety Screening [facility] Start: 1985 Depression Screening Depression Screening [facility] Start: 1985 HEPATITIS C SCREENING HEPATITIS C SCREENING [facility] Start: 1985 Hepatitis C screening Hepatitis C Screening [facility] Start: 1985 HIV SCREENING HIV SCREENING [facility] Start: 1985 HIV screening HIV Screening [facility] Start: 1979 Depression Screening Depression Screening [facility] Start: 1977 Glaucoma screening Diabetes: Retinopathy Screening [facility] Start: 1973 PNEUMOCOCCAL (1 - PCV) PNEUMOCOCCAL (1 - PCV) [facility] Start: 01-25-1972 COVID-19 VACCINE (#1) COVID-19 VACCINE (#1) [facility] Start: 1967 COVID-19 VACCINE (#1) COVID-19 VACCINE (#1) [facility] Start: 1967 HEPATITIS B (1 of 3 - 3-dose series) HEPATITIS B (1 of 3 - 3-dose series) [facility] Start: 1967 Hepatitis B Vaccine (1 of 3 - 3-dose series) Hepatitis B Vaccine (1 of 3 - 3-dose series) [facility] Start: 1967 Screening for malignant neoplasm of colon [facility] End: 09-11-2024 Colonoscopy Colonoscopy GI Routine Encounter for colonoscopy in patient with family history of colon cancer 1 Occurrences starting 09/13/2023 until 09/11/2024 [facility] Work Phone: Comment on above: 1 Occurrences starting 09/13/2023 until 09/11/2024 [facility] Immunizations Immunization Date Immunization Notes Care Provider Fa cility 02-24-2024 Pneumococcal Conjuga te PCV 20 Katalina Colbert NP Work Phone: [facility] 02-24-2024 Seasonal, trivalent, recombinant, injectable influenza vaccine, preservative free Katalina Colbert NP Work Phone: [facility] 02-24-2024 zoster vaccine recombinant Katalina Aichholz OPTICAL GLASS INSPECTOR Work Phone: [facility] 02-24-2024 influenza virus vacc ine, unspecified formulation Sarah Khan MD Work Phone: [facility] 03-25-2020 influenza, high dose seasonal, preservative-free Katalina Aichholz OPTICAL GLASS INSPECTOR Work Phone: [facility] 03-25-2020 influenza, injectabl e, quadrivalent, preservative free Katalina Aichholz OPTICAL GLASS INSPECTOR Work Phone: [facility] 03-25-2020 pneumococcal polysaccharide vaccine, 23 valent Katalina Aichholz OPTICAL GLASS INSPECTOR Work Phone: [facility] 03-25-2020 influenza virus vacc ine, unspecified formulation SOFY Pringle MD Work Phone: [facility] 04-05-2019 influenza, high dose seasonal, preservative-free Katalina Aichholz OPTICAL GLASS INSPECTOR Work Phone: [facility] 03-19-2019 influenza, seasonal, injectable Katalina Aichholz OPTICAL GLASS INSPECTOR Work Phone: [facility] 03-22-2018 influenza, high dose seasonal, preservative-free Katalina Aichholz OPTICAL GLASS INSPECTOR Work Phone: [facility] 03-22-2018 influenza, injectabl e, quadrivalent, preservative free Katalina Aichholz OPTICAL GLASS INSPECTOR Work Phone: [facility] 03-04-2015 influenza, seasonal, injectable Katalina Aichholz OPTICAL GLASS INSPECTOR Work Phone: [facility] 03-23-2013 influenza, seasonal, injectable Katalina Aichholz OPTICAL GLASS INSPECTOR Work Phone: [facility] 04-15-2009 novel influenza-H1N1 -09, preservative-free, injectable Katalina Aichholz OPTICAL GLASS INSPECTOR Work Phone: [facility] 08-11-2001 hepatitis B vaccine, adult dosage Katalina Aichholz OPTICAL GLASS INSPECTOR Work Phone: [facility] 02-17-2001 hepatitis B vaccine, adult dosage Katalina Colbert OPTICAL GLASS INSPECTOR Work Phone: [facility] 03-09-2000 hepatitis B vaccine, adult dosage Katalina Colbert OPTICAL GLASS INSPECTOR Work Phone: [facility] Healthcare Payers Date Payer Category Payer Unknown [employer] [id number] 2023-Present [phone] [address] [place] [address] [id number] 2023 Unknown [id number] 2022 Unknown [id number] 2020 Private Health Insurance [facility] CHOICE PLUS [id number] 2020-Present [phone] [address] [place] [address] O [id number] 2020 Private Health Insurance [id number] 2020 Private Health Insurance [id number] 2019 Unknown JAIDEN VARGAS [employer] SS PPO [id number] 2019-Present PPO [id number] 1967 Unknown [id number] [id number] .593 1967 Unknown [id number] 2.16.840.1.432368.3.579.2 .593 1967 Unknown [id number] 2.16.840.1.366192.3.579.2 .593 1967 Unknown [id number] 2.16.840.1.364291.3.579.2 .593 1967 Unknown [id number] 2.16840.1.020885.3.579.2 .593 1967 Unknown [id number] 2.16840.1.580920.3.579.2 .593 1967 Unknown [id number] 2.16.840.1.944401.3.579.2 .593 1967 Unknown [id number] 2.840.1.891504.3.579.2 .593 1967 Unknown [id number] 2.16840.1.117160.3.579.2 .593 1967 Unknown [id number] 2.840.1.196243.3.579.2 .593 1967 Unknown [id number] 2.840.1.829365.3.579.2 .1286 1967 Unknown [id number] 2.840.1.540004.3.579.2 .128 1967 Unknown [id number] 2.840.1.942924.3.579.2 .128 1967 Unknown [id number] 2.840.1.177003.3.579.2 .128 1967 Unknown [id number] 2.840.1.084338.3.579.2 .1286 1967 Unknown [id number] 2.840.1.776456.3.579.2 .1259 1967 Unknown [id number] 2.840.1.385567.3.579.2 .1259 1967 Unknown [id number] 2.840.1.201432.3.579.2 .1259 1967 Unknown [id number] 2.16840.1.672282.3.579.2 .1259 1967 Unknown [id number] 2.16840.1.185931.3.579.2 .1259 1967 Unknown [id number] 2.16.840.1.087440.3.579.2 .1259 1967 Unknown [id number] 2.16.840.1.009200.3.579.2 .1259 1967 Unknown [id number] 2.16.840.1.325221.3.579.2 .1259 1959 Private Health Insurance [id number] Social History Date Type Detail Facility Start: 05-11-2012 End: 12-11-2024 Tobacco smoking status NHIS Former smoker [facility] Work Phone: Start: 06-06-1985 History of tobacco use Cigarette Smoker [facility] Start: 05-11-2012 Alcohol intake Not Asked [facility] Start: 05-11-2012 Tobacco Comment quit smoking Jun 28, 2009 [facility] Start: 1965 Sex Assigned At Not on file [facility] Exposure to SARS-CoV -2 (event) Unable to assess [facility] Start: 05-11-2012 End: 08-13-2024 Cigarettes smoked current (pack per day) - Reported 1 [facility] Start: 05-11-2012 End: 12-11-2024 Tobacco use and exposure Smokeless tobacco non-user [facility] Work Phone: Start: 09-16-2020 End: 01-22-2025 Alcohol intake Ex-drinker (finding) [facility] Start: 06-06-1985 History of tobacco use Current smoker [facility] Start: 01-25-2022 End: 02-04-2022 Exposure to SARS-CoV-2 (event) Not sure [facility] Start: 09-06-2022 End: 08-13-2024 Patient Health Questionnaire 2 item (PHQ-2) [Reported] [facility] Adult Depression Screening Assessment 0 [facility] Start: 07-20-2020 Gender identity Identifies as female gender (finding) [facility] Start: 07-20-2020 Sexual orientation Heterosexual (finding) [facility] Within the last year , have you [...] housing, medical care, and heating Somewhat hard [facility] Do you feel stress - tense, restless, nervous, or anxious, or unable to sleep at night because your mind is troubled all the time - these days [OSQ] To some extent [facility] Healthcare (I/We) worried wheth er (my/our) food would run out before (I/we) got money to buy more. Never true [facility] Start: 06-09-2023 Tobacco Comment Last smoked: 5-10 years ago [facility] Start: 06-09-2023 Alcohol Comment caffeine more than 4 cups per day [facility] Start: 1965 Sex Assigned At Female [facility] Start: 09-13-2023 End: 09-28-2023 Alcoholic beverage intake Current drinker of alcohol (finding) [facility] Start: 01-10-2018 Alcohol Comment rare [facility] Medical Equipment Procedure Code Equipment Code Equipment Origin al Text Equipment Identifier Dates 0---Anchr Sut 4.5mm Pshlk Spnl - [id number] Start: 11-29-2012 Comment on above: Description: ALVINO FLOREZ [id number] Start: 04-20-2023 End: 05-28-2024 Inject 1 each under the skin in the morning and 1 each at noon and 1 each in the evening and 1 each before bedtime. [id number] Start: 02-28-2024 End: 05-28-2024 Goals Date Patient Goal Desired Activity /State Personal health goal Clinical Notes 10-16-2021 to 01-22-2025 Rita Pulliam CNM - 01/22/2025 3:30 PM EDTTelephone Encounter - Katalina Colbert NP - 12/12/2024 8:40 AM EDTTelephone Encounter - Katalina Colbert NP - 12/12/2024 8:40 AM EDTPatient Instructions Note Date & Type Note Facility 01-22-2025 History of Present illness Narrative PROBLEM VISIT Katalina Hutchins is 59 y.o. a patient of [facility] [employer] Here for follow up Last pap: 12/11/24 Last mammogram: No LMP recorded. Patient is postmenopausal. 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 ([facility]) Morbid obesity with body mass index (BMI) of 40.0 to 49.9 ([facility]) Multinodular goiter Non compliance w medication regimen Onychomycosis KARINE (obstructive sleep apnea) Papillary thyroid carcinoma ([facility]) Paresthesia of left lower extremity Parotid mass Post-operative hypothyroidism Postmenopausal bleeding Sinusitis Type 2 diabetes mellitus 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 ([facility]) Uncontrolled type 2 diabetes mellitus 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, with long-term current use of insulin ([facility]) 06/09/2023 UTI symptoms Vitamin D deficiency Past Surgical History: Procedure Laterality Date CHOLECYSTECTOMY FINE NEEDLE ASPIRATE 03/10/2016 FNA left parotid IR FINE NEEDLE ASPIRATION THYROID 02/08/2020 OTHER SURGICAL HISTORY Cyst removed Armpit OTHER SURGICAL HISTORY multiple r/o boils ROTATOR CUFF REPAIR Right TOTAL KNEE ARTHROPLASTY Left 04/2015 DR. CABALLERO TOTAL THYROIDECTOMY 03/25/2020 at [facility]: papillary carcinoma 1/2 nodes positive in ant. [...] Grandmother Breast cancer Alzheimer's disease Paternal Grandfather @[email or web address]@ Allergies: Allergies Allergen Reactions Wound Dressing Adhesive [...] Daily as needed (Allergies) 90 tablet 1 fluticasone (Flonase) 50 MCG/ACT nasal spray [...] (1,000 mg) before bedtime. 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 Patient met a man online from [place] and she is maybe going to move to [place] with him. I did advise her to make her health appts first and legal clerk appt is a priority before she would move. PVU. No follow-ups on file. There are no Patient Instructions on file for this visit. Darlin Covington MA,01/22/2025 3:36 PM documented in this encounter [facility] 01-14-2025 Note [place] [facility] - [facility] Subjective Katalina Hutchins is a 59 y.o. year old female [...] (BMI) of 50.0 to 59.9 in adult Contusion of right [...] history of hypertension, hyperlipidemia, diabetes all on treatment. She has strong family history of coronary artery disease and she is an ex-smoker. She was evaluated on October 30, 2024 in the emergency room at the [facility] because of chest pain. Her ECG did not show acute abnormalities. Her high-sensitivity troponin was negative. She reports the chest [...] kg (280 lb) SpO2 98% BMI 48.06 kg/m??? Smoking Status Former BSA 2.4 m??? Physical Exam Constitutional: Appearance: She is well-developed. [...] (1000 UT) capsule, Take 1 capsule by (more content not included)... [facility] 12-12-2024 Telephone encounter Note Contact the patient, I checked with [facility] centralized scheduling about her ECHO and stress test, this is still in the process of getting approved with insurance. This was the reason she was to fu today, so lets push her appt out another 4 weeks [place] [facility] 12-12-2024 Miscellaneous Notes Contact the patient, I checked with [facility] centralized scheduling about her ECHO and stress test, this is still in the process of getting approved with insurance. This was the reason she was to fu today, so lets push her appt out another 4 weeks [place] documented in this encounter [facility] 12-04-2024 Telephone encounter Note Text Affirmative Action Specialist Hi, this is Lisa. Darden Echo. This is like the 3rd or maybe even 4th time that this has happened to me, but I do not know if it is something I need to be worried about or not. For some reason, I just cannot wake up. Luckily, it is only done it on my days off. I will wake up and go do something and not even be awake for a half hour and I just go back to sleep. I just can not seem to get enough sleep. And I am not sure what is going on. My number is [phone]. Birthday is . I do not know if she wants to see me about this or if she might have an idea I do not know. But it is kind of starting to get a little crazy. I know like I said, it is at least the 3rd time that this has happened, if not more. First, I just kind of blew it off. But it is starting to worry me a little bit now. Thank you. [facility] 12-04-2024 Miscellaneous Notes Text Affirmative Action Specialist Hi, this is Lisa. Darden Echo. This is like the 3rd or maybe even 4th time that this has happened to me, but I do not know if it is something I need to be worried about or not. For some reason, I just cannot wake up. Luckily, it is only done it on my days off. I will wake up and go do something and not even be awake for a half hour and I just go back to sleep. I just can not seem to get enough sleep. And I am not sure what is going on. My number is [phone]. Birthday is . I do not know if she wants to see me about this or if she might have an idea I do not know. But it is kind of starting to get a little crazy. I know like I said, it is at least the 3rd time that this has happened, if not more. First, I just kind of blew it off. But it is starting to worry me a little bit now. Thank you. documented in this encounter [facility] 11-23-2024 Telephone encounter Note Pt was notified of recent results and f/u appt will be coordinated per PSS. Please sign pended refill. Argenis Reynolds RN [facility] 11-23-2024 Miscellaneous Notes Pt was notified of recent results and f/u appt will be coordinated per PSS. Please sign pended refill. Argenis Reynolds RN documented in this encounter [facility] 11-22-2024 Telephone encounter Note Call placed to pt due to not answering for phone visit with Dr Pringle yesterday. Voicemail from pt was received this am from pt stating she had her phone in the other room. Per Dr Pringle, ok to let pt know labs look good and he's like to recheck in 1 year. LM for pt to CB to explain. ARMANI- please sign pended lab orders for 1 year. Argenis Reynolds, SHAYLA [facility] 11-22-2024 Miscellaneous Notes Call placed to pt due to not answering for phone visit with Dr Pringle yesterday. Voicemail from pt was received this am from pt stating she had her phone in the other room. Per Dr Engeler, ok to let pt know labs look good and he's like to recheck in 1 year. LM for pt to CB to explain. ARMANI- please sign pended lab orders for 1 year. Argenis Reynolds, RN documented in this encounter [facility] 11-21-2024 Note HNO ID: [id number] Author: Zion PRINGLE MD Service: ? Author Type: Physician Type: Progress Notes Filed: 11/29/2024 15:05 Note Text: AMBULATORY Virtual VISIT Katalina Hutchins has consented to this telephone encounter. 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 Patient received I-131 ablative therapy, 75.9 mCi on 07/09/2020 HPI: Doing well. Denies significant problems. No chest pain palpitations feelings of anxiousness. Denies dysphagia. Denies any weight gain. Data Reviewed: Most recent labs Ref. 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 Plan: Doing well. On appropriate TSH suppression/levothyroxine replacement. Thyroglobulin remains undetectable. Recommend recheck in 1 year. Total Time Spent: 10 minutes Zion Pringle MD [facility] 11-21-2024 History of Present illness Narrative AMBULATORY Virtual VISIT Katalina Hutchins has consented to this telephone encounter. 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 Patient received I-131 ablative therapy, 75.9 mCi on 07/09/2020 HPI: Doing well. Denies significant problems. No chest pain palpitations feelings of anxiousness. Denies dysphagia. Denies any weight gain. Data Reviewed: Most recent labs Ref. 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 Plan: Doing well. On appropriate TSH suppression/levothyroxine replacement. Thyroglobulin remains undetectable. Recommend recheck in 1 year. Total Time Spent: 10 minutes Zion Pringle MD documented in this encounter [facility] 11-13-2024 History of Present illness Narrative Associated Problem(s): Chest pain of unknown etiology Risk factors; uncontrolled DM, HTN, family hx CAD, MO Would recommend ordering stress test CANNOT walk on treadmill d/t arthritis in knees Will order lexiscan Images from the original note were not included. Katalina Hutchins is a 59 y.o. female presents with chief complaint of Anxiety HPI: Chest Pain This is a new problem. The current episode started in the past 7 days. The onset quality is sudden. The problem occurs intermittently. The pain is present in the substernal region and lateral region. The pain is moderate. The quality of the pain is described as pressure and sharp. Radiates to: sternal region. Pertinent negatives include no abdominal pain, back pain, cough, dizziness, exertional chest pressure, fever, headaches, hemoptysis, lower extremity edema, nausea, orthopnea, palpitations, shortness of breath or vomiting. The pain is aggravated by nothing. She has tried nothing for the symptoms. Risk factors include lack of exercise, obesity, post-menopausal and sedentary lifestyle. Her past medical history is significant for aneurysm, cancer, diabetes, hyperlipidemia, hypertension, sleep apnea and thyroid problem. Pertinent negatives for past medical history include no arrhythmia, no connective tissue disease, no CHF, no PE, no PVD, no rheumatic fever, no seizures and no stimulant use. Her family medical history is significant for CAD, diabetes, heart disease, hyperlipidemia and hypertension. Prior diagnostic workup includes chest x-ray. SUBJECTIVE: MEDICATIONS: Current Outpatient Medications Medication Instructions albuterol HFA 90 mcg/act inhaler 2 puffs, Every 4 hours PRN aspirin (ASPIRIN LOW DOSE) 81 mg, Oral, Daily cholecalciferol (VITAMIN D-3) 25 mcg, Oral, Daily doxycycline (VIBRA-TABS) 100 mg, Oral, 2 times daily, Take with a full glass of water and do not lie down for at least 30 minutes after. DULoxetine (CYMBALTA) 60 mg, Oral, Daily fexofenadine (YOLANDA) 180 mg, Oral, Daily PRN fluticasone (Flonase) 50 MCG/ACT nasal spray 2 sprays, Each Nostril, Daily hydroCHLOROthiazide (MICROZIDE) 12.5 mg, Oral, Daily insulin glargine-yfgn (SEMGLEE-YFGN) 60 Units, Nightly insulin lispro (HumaLOG) 100 UNIT/ML injection INJECT 15-20-25 UNITS ACCORDING TO MEAL SIZE PLUS ISS #3 (MAX DAILY DOSE OF 100 UNITS) Januvia 100 mg, Oral, Daily Lantus SoloStar 60 Units, Subcutaneous, Nightly levothyroxine (Synthroid, Levoxyl) 200 MCG tablet 1 tablet, Daily before breakfast losartan (COZAAR) 100 mg, Oral, Daily metFORMIN (GLUCOPHAGE) 1,000 mg, Oral, 2 times daily ReliOn Pen [place] 31G X 6 MM misc 1 each, 4 times daily simvastatin (ZOCOR) 5 mg, Oral, Nightly tiZANidine (ZANAFLEX) 4 mg, Oral, Nightly PRN ALLERGIES: Allergies Allergen Reactions Wound Dressing Adhesive Rash Latex Other and Rash REVIEW OF SYMPTOMS: Review of Systems Constitutional: Negative for appetite change, chills and fever. HENT: Negative for congestion, ear pain and sore throat. Eyes: Negative for pain, discharge, redness and visual disturbance. Respiratory: Negative for cough, hemoptysis, shortness of breath and wheezing. Cardiovascular: Positive for chest pain. Negative for palpitations, orthopnea and leg swelling. Gastrointestinal: Negative for abdominal pain, blood in stool, constipation, diarrhea, nausea and vomiting. Genitourinary: Negative for difficulty urinating, dysuria and frequency. Musculoskeletal: Positive for arthralgias. Negative for back pain, joint swelling and myalgias. Skin: Negative for rash and wound. Neurological: Negative for dizziness, tremors, seizures, syncope and headaches. Psychiatric/Behavioral: Negative for behavioral problems, self-injury and suicidal ideas. The patient is not nervous/anxious. Hematological: Does not bruise/bleed easily. Endocrine: Negative for polydipsia, polyphagia and polyuria. Allergic/Immunologic: Negative for environmental allergies and food allergies. PAST MEDICAL HISTORY Past Medical History: Diagnosis Date Abnormal results of thyroid function studies Allergic rhinitis 07/04/2023 Anxiety and depression ([facility]) 06/09/2023 Arthritis At low risk for fall Chest pain Chronic pain Chronic pain of right knee COVID-19 virus detected DM (diabetes mellitus) ([facility]) 06/2017 Eczema Elevated BUN Essential hypertension ([facility]) 06/09/2023 Hidradenitis suppurativa HLD (hyperlipidemia) ([facility]) HTN (hypertension) ([facility]) Hypercalcemia Insomnia intermediate (current) use of insulin ([facility]) Morbid obesity with body mass index (BMI) of 40.0 to 49.9 ([facility]) Multinodular goiter (CMS/HCC) Non compliance w medication regimen Onychomycosis KARINE (obstructive sleep apnea) Papillary thyroid carcinoma (CMS/HCC) Paresthesia of left lower extremity Parotid mass Post-operative hypothyroidism (CMS/HCC) Postmenopausal bleeding Sinusitis Type 2 diabetes mellitus 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 (CMS/HCC) Uncontrolled type 2 diabetes mellitus 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, with long-term current use of insulin (CMS/HCC) 06/09/2023 UTI symptoms Vitamin D deficiency Past Surgical History: Procedure Laterality Date CHOLECYSTECTOMY FINE NEEDLE ASPIRATE 03/10/2016 FNA left parotid IR FINE NEEDLE ASPIRATION THYROID 02/08/2020 OTHER SURGICAL HISTORY Cyst removed Armpit OTHER SURGICAL HISTORY multiple r/o boils ROTATOR CUFF REPAIR Right TOTAL KNEE ARTHROPLASTY Left 04/2015 DR. CABALLERO TOTAL THYROIDECTOMY 03/25/2020 at [facility]: papillary carcinoma 1/2 nodes positive in ant. compartment dissection family history includes Allergy (severe) in her mother; Alzheimer's disease in her father and paternal grandfather; Appendicitis in her father; Asthma in her mother; Atrial fibrillation in her father and mother; COPD in her mother; Cancer in her father, mother, and paternal grandmother; Carpal tunnel syndrome in her mother; Colon cancer in her father; Coronary artery disease in her father; Diabetes in her father and mother; Edema in her father; GREGORY disease in her father; Gallbladder disease in her father; Heart attack in her father, maternal grandfather, and mother; Heart disease in her father and mother; Hernia in her father; Hypersomnolence in her father; Hypertension in her father and mother; Hysterectomy in her mother; No Known Problems in her maternal grandmother and sister; Obesity in her father; RBBB in her father; Sleep apnea in her father; Supraventricular tachycardia in her father; Thyroid disease in her mother; Cole Parkinson White syndrome in her mother; hernia repair in her mother; uterine problem in her mother. OBJECTIVE: Visit Vitals BP 130/78 (BP Location: Right arm, Patient Position: Sitting, BP Cuff Size: Adult long) Pulse 90 Temp 98.5 F (Temporal) Resp 22 Wt 288 lb 12.8 oz SpO2 99% BMI 49.57 kg/m Smoking Status Former BSA 2.43 m Physical Exam Vitals and nursing note reviewed. Constitutional: General: She is not in acute distress. Appearance: Normal appearance. HENT: Head: Normocephalic and atraumatic. Right Ear: External ear normal. Left Ear: External ear normal. Nose: Nose normal. Mouth/Throat: Mouth: Mucous membranes are moist. Eyes: Extraocular Movements: Extraocular movements intact. Conjunctiva/sclera: Conjunctivae normal. Neck: Vascular: No carotid bruit. Cardiovascular: Rate and Rhythm: Normal rate and regular rhythm. Pulses: Normal pulses. Heart sounds: Normal heart sounds. Pulmonary: Effort: Pulmonary effort is normal. Breath sounds: Normal breath sounds. No wheezing or rhonchi. Abdominal: General: Bowel sounds are normal. There is no distension. Palpations: Abdomen is soft. There is no mass. Tenderness: There is no abdominal tenderness. Musculoskeletal: General: Normal range of motion. Cervical back: Normal range of motion and neck supple. Right lower leg: No edema. Left lower leg: No edema. Skin: General: Skin is warm and dry. Capillary Refill: Capillary refill takes 2 to 3 seconds. Findings: No rash. Neurological: General: No focal deficit present. Mental Status: She is alert and oriented to person, place, and time. Psychiatric: Mood and Affect: Mood normal. Behavior: Behavior normal. Thought Content: Thought content normal. Judgment: Judgment normal. ASSESSMENT AND PLAN: No follow-ups on file. Problem List Items Addressed This Visit Essential hypertension ([facility]) - Primary Please check blood pressure daily and record DASH diet Limit caffeine Take medication as directed Contact office if chest pain, pressure, dizziness, shortness of breath, swelling legs Recommend slow position changes Current meds: hydrochlorothiazide, losartan Relevant Orders STRESS TEST LEXISCAN Echocardiogram 2D complete Uncontrolled type 2 diabetes mellitus 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, with long-term current use of insulin ([facility]) Check blood sugars daily, notify if <70 [...] well Current A1c is 9.5% on 07/31 Relevant Orders STRESS TEST LEXISCAN Echocardiogram 2D complete KARINE (obstructive sleep apnea) You have a diagnosis of obstructive sleep apnea. It is recommended that you wear your PAP device any time while in bed sleeping. Not using the PAP device can increase your risk of elevated/uncontrolled high blood pressure, atrial fibrillation, heart attack, stroke, or sudden . Compliance with PAP: is not Relevant Orders STRESS TEST LEXISCAN Echocardiogram 2D complete Class 3 severe obesity due to excess calories with serious comorbidity and body mass index (BMI) of 50.0 to 59.9 in adult Discussed with patient their BMI (actual, verses recommended). We have also discussed lifestyle modifications: attempts to perform physical activity as chronic conditions allow, also to monitor dietary intake: increasing protein/fruits/veggies and lowering carb intake (unless contraindicated). Limit sodas, juices, and sugary drinks. Also discussed oral medications that can be utilized for weight loss, as well as surgical options for weight loss. Chest pain of unknown etiology Risk factors; uncontrolled DM, HTN, family hx CAD, MO Would recommend ordering stress test CANNOT walk on treadmill d/t arthritis in knees Will order lexiscan Relevant Orders STRESS TEST LEXISCAN Echocardiogram 2D complete Associated Problem(s): Uncontrolled type 2 diabetes mellitus 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, with long-term current use of insulin ([facility]) Check blood sugars daily, notify if <70 [...] well Current A1c is 9.5% on 07/31 Associated Problem(s): Class 3 severe obesity due to excess calories with serious comorbidity and body mass index (BMI) of 50.0 to 59.9 in adult Discussed with patient their BMI (actual, verses recommended). We have also discussed lifestyle modifications: attempts to perform physical activity as chronic conditions allow, also to monitor dietary intake: increasing protein/fruits/veggies and lowering carb intake (unless contraindicated). Limit sodas, juices, and sugary drinks. Also discussed oral medications that can be utilized for weight loss, as well as surgical options for weight loss. Associated Problem(s): KARINE (obstructive sleep apnea) You have a diagnosis of obstructive sleep apnea. It is recommended that you wear your PAP device any time while in bed sleeping. Not using the PAP device can increase your risk of elevated/uncontrolled high blood pressure, atrial fibrillation, heart attack, stroke, or sudden . Compliance with PAP: is not Associated Problem(s): Essential hypertension (CMS/HCC) Please check blood pressure daily and record DASH diet Limit caffeine Take medication as directed Contact office if chest pain, pressure, dizziness, shortness of breath, swelling legs Recommend slow position changes Current meds: hydrochlorothiazide, losartan documented in this encounter [facility] 11-13-2024 Instructions Katalina Colbert NP - 11/13/2024 3:00 PM EDT Stress test and echo at [facility] documented in this encounter [facility] 11-13-2024 Telephone encounter Note Spoke with patient & rescheduled her phone visit out 1 week on 11/21/2024 at 4 pm. ELLA Mathews [facility] 11-13-2024 Miscellaneous Notes Spoke with patient & rescheduled her phone visit out 1 week on 11/21/2024 at 4 pm. ELLA Mathews Lvm for patient to call back and move phone visit appt out a week. ELLA Mathews Call placed to [facility] due to still not having TG total result. Per lab, they checked with lab pam this am and result still pending. PSS- please call pt and delay phone appt 1 week so we have result. Thank you Argenis Reynolds, RN documented in this encounter [facility] 11-13-2024 Telephone encounter Note Lvm for patient to call back and move phone visit appt out a week. ELLA Mathews [facility] 11-13-2024 Telephone encounter Note Call placed to [facility] due to still not having TG total result. Per lab, they checked with lab pam this am and result still pending. PSS- please call pt and delay phone appt 1 week so we have result. Thank you Argenis Reynolds, RN [facility] 11-08-2024 Note HNO ID: [id number] Author: ?, ?, ? Service: ? Author Type: ? Type: Progress Notes Filed: 11/21/2024 10:48 Note Text: opened in error [facility] 09-07-2024 Telephone encounter Note Please send Long Acting insulin for 90 days to [facility] ch[facility] pt is out! [facility] 09-07-2024 Miscellaneous Notes Please send Long Acting insulin for 90 days to [facility] ch[facility] pt is out! documented in this encounter [facility] 08-13-2024 History of Present illness Narrative Images from the original note were not included. Katalina Hutchins is a 59 y.o. female presents with chief complaint of No chief complaint on file. HPI: Has hx of KARINE: has not worn her machine in about a year, lost the mask and head gear, would like a new order for this Hypertension This is a chronic problem. The current episode started today. The problem is unchanged. The problem is controlled. Associated symptoms include anxiety and peripheral edema. Pertinent negatives include no chest pain, headaches, palpitations, PND or shortness of breath. There are no associated agents to hypertension. Risk factors for coronary artery disease include diabetes mellitus, dyslipidemia, obesity and sedentary lifestyle. Past treatments include angiotensin blockers and diuretics. The current treatment provides significant improvement. There are no compliance problems. There is no history of CAD/MO, heart failure or PVD. Anxiety Presents for follow-up visit. Symptoms include nervous/anxious behavior. Patient reports no chest pain, decreased concentration, depressed mood, dizziness, excessive worry, insomnia, irritability, nausea, palpitations, shortness of breath or suicidal ideas. Symptoms occur occasionally. The severity of symptoms is mild. There is no history of CAD. Compliance with medications is 76-100%. Depression Visit Type: follow-up Patient presents with the following symptoms: nervousness/anxiety. Patient is not experiencing: anhedonia, decreased concentration, depressed mood, excessive worry, feelings of hopelessness, insomnia, irritability, palpitations, shortness of breath, suicidal ideas, suicidal planning, thoughts of , weight gain and weight loss. Frequency of symptoms: occasionally Severity: mild No history of: CAD and CHF Compliance with medications: 76-100% Edema Presents with chronic edema. The current episode started more than 1 year ago. The onset of the episode was gradual. The problem presents itself occasionally. The problem has been waxing and waning. The edema is present on the both side(s). Risk factors for edema include no known risk factors. Associated symptoms include fatigue. Pertinent negative symptoms include no abdominal pain, no chest pain, no cough, no decreased urine volume, no fever, no nausea, no palpitations, no PND and no vomiting. Pertinent negative history includes no CAD and no CHF. Treatments tried include diuretics. There has been moderate improvement on treatment(s). SUBJECTIVE: MEDICATIONS: Current Outpatient Medications Medication Instructions albuterol HFA 90 mcg/act inhaler 2 puffs, Every 4 hours PRN cholecalciferol (VITAMIN D-3) 25 mcg, Daily DULoxetine (CYMBALTA) 60 mg, Oral, Daily EQ Aspirin Adult Low Dose 81 mg, Daily fexofenadine (YOLANDA) 180 mg, Oral, Daily PRN fluticasone (Flonase) 50 MCG/ACT nasal spray 2 sprays, Each Nostril, Daily hydroCHLOROthiazide (MICROZIDE) 12.5 mg, Oral, Daily ibuprofen 800 mg, Oral, Every 12 hours, Take with food insulin glargine-yfgn (SEMGLEE-YFGN) 60 Units, Nightly insulin lispro (HumaLOG) 100 UNIT/ML injection INJECT 15-20-25 UNITS ACCORDING TO MEAL SIZE PLUS ISS #3 (MAX DAILY DOSE OF 100 UNITS) Januvia 100 mg, Oral, Daily Lantus SoloStar 100 UNIT/ML pen INJECT 60 UNITS SUBCUTANEOUSLY EVERY DAY AT BEDTIME levothyroxine (Synthroid, Levoxyl) 200 MCG tablet 1 tablet, Daily before breakfast losartan (COZAAR) 100 mg, Oral, Daily metFORMIN (GLUCOPHAGE) 1,000 mg, Oral, 2 times daily ReliOn Pen [place] 31G X 6 MM misc 1 each, 4 times daily simvastatin (ZOCOR) 5 mg, Oral, Nightly tiZANidine (ZANAFLEX) 4 mg, Oral, Nightly PRN ALLERGIES: Allergies Allergen Reactions Wound Dressing Adhesive Rash Latex Other and Rash REVIEW OF SYMPTOMS: Review of Systems Constitutional: Positive for fatigue. Negative for appetite change, chills, fever, irritability, weight gain and weight loss. HENT: Negative for congestion, ear pain and sore throat. Eyes: Negative for pain, discharge, redness and visual disturbance. Respiratory: Negative for cough, shortness of breath and wheezing. Cardiovascular: Positive for leg swelling. Negative for chest pain, palpitations and PND. Gastrointestinal: Negative for abdominal pain, blood in stool, constipation, diarrhea, nausea and vomiting. Genitourinary: Negative for decreased urine volume, difficulty urinating, dysuria and frequency. Musculoskeletal: Negative for arthralgias, back pain, joint swelling and myalgias. Skin: Negative for rash and wound. Neurological: Negative for dizziness, tremors, seizures, syncope and headaches. Psychiatric/Behavioral: Positive for depression. Negative for behavioral problems, decreased concentration, self-injury and suicidal ideas. The patient is nervous/anxious. The patient does not have insomnia. Depression Hematological: Does not bruise/bleed easily. Endocrine: Negative for polydipsia, polyphagia and polyuria. Allergic/Immunologic: Negative for environmental allergies and food allergies. PAST MEDICAL HISTORY Past Medical History: Diagnosis Date Abnormal results of thyroid function studies Allergic rhinitis 07/04/2023 Anxiety and depression ([facility]) 06/09/2023 Arthritis At low risk for fall Chest pain Chronic pain Chronic pain of right knee COVID-19 virus detected DM (diabetes mellitus) ([facility]) 06/2017 Eczema Elevated BUN Essential hypertension ([facility]) 06/09/2023 Hidradenitis suppurativa HLD (hyperlipidemia) ([facility]) HTN (hypertension) ([facility]) Hypercalcemia 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 ([facility]) Morbid obesity with body mass index (BMI) of 40.0 to 49.9 ([facility]) Multinodular goiter ([facility]) Non compliance w medication regimen Onychomycosis KARINE (obstructive sleep apnea) Papillary thyroid carcinoma ([facility]) Paresthesia of left lower extremity Parotid mass Post-operative hypothyroidism ([facility]) Postmenopausal bleeding Sinusitis Type 2 diabetes mellitus 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 ([facility]) Uncontrolled type 2 diabetes mellitus 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, with long-term current use of insulin ([facility]) 06/09/2023 UTI symptoms Vitamin D deficiency Past Surgical History: Procedure Laterality Date CHOLECYSTECTOMY FINE NEEDLE ASPIRATE 03/10/2016 FNA left parotid IR FINE NEEDLE ASPIRATION THYROID 02/08/2020 OTHER SURGICAL HISTORY Cyst removed Armpit OTHER SURGICAL HISTORY multiple r/o boils ROTATOR CUFF REPAIR Right TOTAL KNEE ARTHROPLASTY Left 04/2015 DR. CABALLERO TOTAL THYROIDECTOMY 03/25/2020 at [facility]: papillary carcinoma 1/2 nodes positive in ant. compartment dissection family history includes Allergy (severe) in her mother; Alzheimer's disease in her father and paternal grandfather; Appendicitis in her father; Asthma in her mother; Atrial fibrillation in her father and mother; COPD in her mother; Cancer in her father, mother, and paternal grandmother; Carpal tunnel syndrome in her mother; Colon cancer in her father; Coronary artery disease in her father; Diabetes in her father and mother; Edema in her father; GREGORY disease in her father; Gallbladder disease in her father; Heart attack in her father, maternal grandfather, and mother; Heart disease in her father and mother; Hernia in her father; Hypersomnolence in her father; Hypertension in her father and mother; Hysterectomy in her mother; No Known Problems in her maternal grandmother and sister; Obesity in her father; RBBB in her father; Sleep apnea in her father; Supraventricular tachycardia in her father; Thyroid disease in her mother; Cole Parkinson White syndrome in her mother; hernia repair in her mother; uterine problem in her mother. OBJECTIVE: Visit Vitals BP 120/72 (BP Location: Left arm, Patient Position: Sitting, BP Cuff Size: Large adult) Pulse 92 Temp 98.4 F (Temporal) Resp 22 Ht 5' 4 Wt 292 lb 6.4 oz SpO2 95% BMI 50.19 kg/m Smoking Status Former BSA 2.45 m Physical Exam Vitals and nursing note reviewed. Constitutional: General: She is not in acute distress. Appearance: Normal appearance. She is obese. HENT: Head: Normocephalic and atraumatic. Right Ear: External ear normal. Left Ear: External ear normal. Nose: Nose normal. Mouth/Throat: Mouth: Mucous membranes are moist. Eyes: Extraocular Movements: Extraocular movements intact. Conjunctiva/sclera: Conjunctivae normal. Neck: Vascular: No carotid bruit. Cardiovascular: Rate and Rhythm: Normal rate and regular rhythm. Pulses: Normal pulses. Heart sounds: Normal heart sounds. Pulmonary: Effort: Pulmonary effort is normal. Breath sounds: Normal breath sounds. No wheezing or rhonchi. Abdominal: General: Bowel sounds are normal. There is no distension. Palpations: Abdomen is soft. There is no mass. Tenderness: There is no abdominal tenderness. Musculoskeletal: General: Normal range of motion. Cervical back: Normal range of motion and neck supple. Right lower leg: Edema present. Left lower leg: Edema present. Comments: Trace pre tibial bilat Skin: General: Skin is warm and dry. Capillary Refill: Capillary refill takes 2 to 3 seconds. Findings: No rash. Neurological: General: No focal deficit present. Mental Status: She is alert and oriented to person, place, and time. Psychiatric: Mood and Affect: Mood normal. Behavior: Behavior normal. Thought Content: Thought content normal. Judgment: Judgment normal. ASSESSMENT AND PLAN: Follow up in about 3 months (around 11/13/2024) for Recheck. Problem List Items Addressed This Visit Essential hypertension ([facility]) Please check blood pressure daily and record DASH diet Limit caffeine Take medication as directed Contact office if chest pain, pressure, dizziness, shortness of breath, swelling legs Recommend slow position changes Current meds: hydrochlorothiazide, losartan Relevant Medications hydroCHLOROthiazide (Microzide) 12.5 MG capsule Other Relevant Orders Comprehensive metabolic panel Urinalysis with reflex microscopic (clean catch) Microalbumin / creatinine, urine ratio Uncontrolled type 2 diabetes mellitus 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, with long-term current use of insulin ([facility]) Check blood sugars daily, notify if <70 [...] well Current A1c is 9.5% on 07/31 Relevant Orders CBC and differential Comprehensive metabolic panel Urinalysis with reflex microscopic (clean catch) Microalbumin / creatinine, urine ratio Anxiety and depression ([facility]) - Primary Current medication is Duloxetine FRANCES 7=4 PHQ 9=3 Bilateral lower extremity edema Current medication: hydrochlorothiazide Recommend compression stockings, elevate feet as much as possible and limit sodium Relevant Medications hydroCHLOROthiazide (Microzide) 12.5 MG capsule Papillary thyroid carcinoma ([facility]) Continue with dr campa He also manages her thyroid dose KARINE (obstructive sleep apnea) You have a diagnosis of obstructive sleep [...] gear, script written and given to patient Mixed hyperlipidemia ([facility]) Is on statin therapy Check labs yearly and prn dose changes Class 3 severe obesity due to excess calories with serious comorbidity and body mass index (BMI) of 50.0 to 59.9 in adult ([facility]) Discussed with patient their BMI (actual, verses recommended). We have also discussed lifestyle modifications: attempts to perform physical activity as chronic conditions allow, also to monitor dietary intake: increasing protein/fruits/veggies and lowering carb intake (unless contraindicated). Limit sodas, juices, and sugary drinks. Also discussed oral medications that can be utilized for weight loss, as well as surgical options for weight loss. Associated Problem(s): Mixed hyperlipidemia ([facility]) Is on statin therapy Check labs yearly and prn dose changes Associated Problem(s): Anxiety and depression ([facility]) Current medication is Duloxetine FRANCES 7=4 PHQ 9=3 Associated Problem(s): Uncontrolled type 2 diabetes mellitus 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, with long-term current use of insulin ([facility]) Check blood sugars daily, notify if <70 [...] well Current A1c is 9.5% on 07/31 Associated Problem(s): Papillary thyroid carcinoma ([facility]) Continue with dr campa He also manages her thyroid dose Associated Problem(s): Class 3 severe obesity due to excess calories with serious comorbidity and body mass index (BMI) of 50.0 to 59.9 in adult ([facility]) Discussed with patient their BMI (actual, verses recommended). We have also discussed lifestyle modifications: attempts to perform physical activity as chronic conditions allow, also to monitor dietary intake: increasing protein/fruits/veggies and lowering carb intake (unless contraindicated). Limit sodas, juices, and sugary drinks. Also discussed oral medications that can be utilized for weight loss, as well as surgical options for weight loss. Associated Problem(s): Bilateral lower extremity edema Current medication: hydrochlorothiazide Recommend compression stockings, elevate feet as much as possible and limit sodium Associated Problem(s): Essential hypertension ([facility]) Please check blood pressure daily and record DASH diet Limit caffeine Take medication as directed Contact office if chest pain, pressure, dizziness, shortness of breath, swelling legs Recommend slow position changes Current meds: hydrochlorothiazide, losartan Associated Problem(s): KARINE (obstructive sleep apnea) You have a diagnosis of obstructive sleep [...] gear, script written and given to patient documented in this encounter [facility] 08-13-2024 Instructions Katalina Colbert NP - 08/13/2024 2:00 PM EDT Order for pt for PAP head gear etc Lab order written documented in this encounter [facility] 07-24-2024 Telephone encounter Note Orders faxed to [facility] and mailed to patient home. [facility] 07-24-2024 Miscellaneous Notes Orders faxed to [facility] and mailed to patient home. Patient scheduled for 3 month phone visit. Just waiting on orders to be signed to be mailed to patient and faxed to [facility]. Call placed to pt to check status and see how she is feeling. If doing well, ok to reschedule her phone visit for 3 months with labs prior including TG. Requested CB. Pt returned call immediately and stated she is doing very well without complaints. She is in agreement with this plan. ARMANI- please sign orders. PSS-Please reschedule phone visit for 3 months out. Please fax lab orders to [facility] once signed and also mail paper copy of all orders to patient. Thank you Argenis Reynolds RN documented in this encounter [facility] 07-24-2024 Telephone encounter Note Patient scheduled for 3 month phone visit. Just waiting on orders to be signed to be mailed to patient and faxed to [facility]. [facility] 07-24-2024 Telephone encounter Note Call placed to pt to check status and see how she is feeling. If doing well, ok to reschedule her phone visit for 3 months with labs prior including TG. Requested CB. Pt returned call immediately and stated she is doing very well without complaints. She is in agreement with this plan. ARMANI- please sign orders. PSS-Please reschedule phone visit for 3 months out. Please fax lab orders to [facility] once signed and also mail paper copy of all orders to patient. Thank you Argenis Reynolds RN [facility] 07-13-2024 History of Present illness Narrative Katalina Hutchins is a 59 y.o. female No ref. provider found presents with chief complaint of Diabetes HPI: Interim history: 07/2024 Followup visit 07/13/2024 for A1c. In the office 9.5, blood sugar is 286 , Currently on Lantus 60, Humalog 15, 20,25 plus scale, on metformin 1000 mg bid, januvia 100 mg. Interim history: 03/2024. Followup visit 03/08/2024 for A1c. In the office 7.2 , blood sugar is144, Currently on Lantus 60, Humalog 15, 20,25 plus scale, on metformin 1000 mg bid, januvia 100 mg . Lab in December/2023 vitamin-D 52, C-peptide 3.9, kidney function within normal limits, total cholesterol 163, HDL 67, LDL 73, AL/cr 6 Interim history: 12/2023. Followup visit 12/07/2023 for A1c. In the office 9.5 , blood sugar is 269. Currently on Lantus 60, Humalog 15, 20,25 plus scale. off mounjar 5 mg weekly due to insurance, on metformin 1000 mg bid. Interim history: 06/2023. Followup visit 06/30/2023 for A1c. In the office 7.5, blood sugar is 227. Currently on Lantus 60, Humalog 15, 20,25 plus scale. No meter with her. on mounjar 5 mg weekly, on metformin Interim history: 03/2023. Followup visit 03/11/2023 for A1c. In the office, 10.3, blood sugar is 266. Labs done in February 2023. C-peptide 3.2 and vitamin D 51, GFR above 60, total cholesterol 179, triglycerides 112, LDL 86, albumin/creatinine 18. Currently on Lantus 60, Humalog 15, 18, 20 plus scale. No meter with her. She is not taking her Trulicity and metformin, does not remember the dose. HPI: 10/2022 New patient sent from Katalina Colbert for uncontrolled diabetes. A1c in our office, 10.5, blood sugar is 239. She has diabetes for almost 15 years. She is morbidly obese. Body mass index 49. Currently she is on glipizide 10 mg once a day, Lantus 35 in the morning, 50 at bedtime and Humalog, barely uses it, 6-8 units once or twice a day. Last eye exam October 2021. Due for one. Denies heart disease or stroke before. MEDICATIONS: Current Outpatient Medications Medication Instructions albuterol HFA 90 mcg/act inhaler 2 puffs, Every 4 hours PRN DULoxetine (CYMBALTA) 60 mg, Oral, Daily EQ Aspirin Adult Low Dose 81 mg, Daily fexofenadine (YOLANDA) 180 mg, Oral, Daily PRN fluconazole (Diflucan) 150 MG tablet One time dose, repeat again in 3 days fluticasone (Flonase) 50 MCG/ACT nasal spray 2 sprays, Each Nostril, Daily hydroCHLOROthiazide (HYDRODiuril) 12.5 MG tablet 1 tablet, Daily ibuprofen 800 mg, Oral, Every 12 hours, Take with food insulin glargine-yfgn (SEMGLEE-YFGN) 60 Units, Nightly insulin lispro (HumaLOG) 100 UNIT/ML injection INJECT 15-20-25 UNITS ACCORDING TO MEAL SIZE PLUS ISS #3 (MAX DAILY DOSE OF 100 UNITS) Januvia 100 mg, Oral, Daily Lantus SoloStar 100 UNIT/ML pen INJECT 60 UNITS SUBCUTANEOUSLY EVERY DAY AT BEDTIME levothyroxine (Synthroid, Levoxyl) 200 MCG tablet 1 tablet, Daily before breakfast losartan (COZAAR) 100 mg, Oral, Daily metFORMIN (GLUCOPHAGE) 1,000 mg, Oral, 2 times daily simvastatin (ZOCOR) 5 mg, Oral, Nightly tiZANidine (ZANAFLEX) 4 mg, Oral, Nightly PRN ALLERGIES: Allergies Allergen Reactions Wound Dressing Adhesive Rash Latex Other and Rash Past Medical History: Diagnosis Date Abnormal results of thyroid function studies Allergic rhinitis 07/04/2023 Anxiety and depression ([facility]) 06/09/2023 Arthritis At low risk for fall Chest pain Chronic pain Chronic pain of right knee COVID-19 virus detected DM (diabetes mellitus) ([facility]) 06/2017 Eczema Elevated BUN Essential hypertension ([facility]) 06/09/2023 Hidradenitis suppurativa HLD (hyperlipidemia) ([facility]) HTN (hypertension) ([facility]) Hypercalcemia Insomnia intermediate (current) use of insulin ([facility]) Morbid obesity with body mass index (BMI) of 40.0 to 49.9 ([facility]) Multinodular goiter ([facility]) Non compliance w medication regimen Onychomycosis KARINE (obstructive sleep apnea) Papillary thyroid carcinoma ([facility]) Paresthesia of left lower extremity Parotid mass Post-operative hypothyroidism ([facility]) Postmenopausal bleeding Sinusitis Type 2 diabetes mellitus 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 ([facility]) Uncontrolled type 2 diabetes mellitus 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, with long-term current use of insulin ([facility]) 06/09/2023 UTI symptoms Vitamin D deficiency Past Surgical History: Procedure Laterality Date CHOLECYSTECTOMY FINE NEEDLE ASPIRATE 03/10/2016 [facility] left parotid IR FINE NEEDLE ASPIRATION THYROID 02/08/2020 OTHER SURGICAL HISTORY Cyst removed Armpit OTHER SURGICAL HISTORY multiple r/o boils ROTATOR CUFF REPAIR Right TOTAL KNEE ARTHROPLASTY Left 04/2015 DR. CABALLERO TOTAL THYROIDECTOMY 03/25/2020 at [facility]: papillary carcinoma 1/2 nodes positive in ant. compartment dissection REVIEW OF SYMPTOMS: 14 POINT OF SYSTEM REVIEWED AND NEGATIVE OBJECTIVE: Constitutional: Afebrile @ home; no weakness or night sweats SKIN: No change in skin color; no itching, rash or lesions; no hair loss; HEENT: No HAs or injury; no dizziness; No difficulty with vision; no eye pain, discharge or lesions; no hearing loss or difficulty; no nasal discharge, NECK: No pain, limitation of motion, lumps or swollen glands RESP: No cough, wheezing or difficulty breathing. No CP with breathing; CARDIO: No CP , SOB or fatigue, No edema, palpitations or dyspnea with exertion GI: No N/V/D or abd. pain; good appetite with no recent change. No heart burn, liver or gallbladder disease; no rectal bleeding or pain : No urinary pain , frequency or odor. MUSCULOSKELETAL: No muscle pain or cramps; no extremity weakness.No joint pain, stiffness, swelling or limitation of movement NEUROLOGY: No H/O seizures, stroke or fainting. No weakness, tremors. Hematology: No bleeding problems or excessive bruising ENDOCRINE: No increase in hunger, thirst or urination; admits compliance to medical management plan Feet: numbness tingling yes , ulcers or skin break no Lab Results Component Value Date HGBA1C 9.5 07/13/2024 HGBA1C 7.2 03/08/2024 Lab Results Component Value Date GLU 286 07/13/2024 GLU 144 03/08/2024 GLU 238 (H) 12/07/2023 12/07/2023 11:03 AM 12/12/2023 6:13 PM 02/08/2024 2:11 PM 03/08/2024 11:27 AM 05/09/2024 1:07 PM 05/09/2024 1:36 PM 07/13/2024 10:41 AM Vitals BMI 50.29 kg/m2 50.5 kg/m2 51.36 kg/m2 50.46 kg/m2 50.29 kg/m2 50.12 kg/m2 BSA (m2) 2.45 m2 2.45 m2 2.48 m2 2.45 m2 2.45 m2 2.44 m2 Systolic 130 138 126 144 138 180 Diastolic 84 78 72 76 84 90 Heart Rate 105 89 87 87 93 109 SpO2 98 % 97 % 96 % 99 % 97 % Temp 98.7 F 97.5 F 97.6 F Resp 20 20 21 20 22 18 Height (in) 5' 4 5' 4 5' 4 5' 4 5' 4 5' 4 Weight (lb) 293 294.2 299.2 294 293 292 Visit Report Report Report Report Report Report Report ASSESSMENT AND PLAN: Assessment/Plan Diagnoses and all orders for this visit: Type 2 diabetes mellitus 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, with long-term current use of insulin ([facility]) - POCT glycosylated hemoglobin (Hb A1C) docked device - POCT glucose manually resulted Continue with Lantus 60, Humalog 15 2024 according to meal size, metformin 1000 twice a day, Januvia 100 mg once a day. Insulin long-term use ([facility]) Hyperlipemia, mixed ([facility]) Vitamin D deficiency Encounter for dietary consultation Class 3 severe obesity with serious comorbidity and body mass index (BMI) of 50.0 to 59.9 in adult, unspecified obesity type ([facility]) Follow up in about 4 months (around 11/10/2024). Answers submitted by the patient for this visit: Diabetes Questionnaire (Submitted on 07/12/2024) Chief Complaint: Diabetes problem Diabetes type: type 2 MedicAlert ID: No Disease duration: 15 Years blurred vision: No chest pain: No fatigue: No foot paresthesias: Yes foot ulcerations: No polydipsia: No polyphagia: No polyuria: No visual change: Yes weakness: No weight loss: No Symptom course: stable confusion: No speech difficulty: No dizziness: No nervous/anxious: No headaches: No hunger: No mood changes: No pallor: No seizures: No tremors: No sleepiness: No sweats: No blackouts: No hospitalization: No nocturnal hypoglycemia: No required assistance: No required glucagon: No CVA: No heart disease: No impotence: No nephropathy: No peripheral neuropathy: Yes PVD: Yes retinopathy: Yes CAD risks: family history, hypertension, obesity, post-menopausal Current treatments: insulin injections, oral agent (monotherapy) Treatment compliance: most of the time Dose schedule: pre-breakfast, pre-lunch, pre-dinner, at bedtime Given by: patient Injection sites: abdominal wall Home blood tests: 1-2 x per day Home urines: <1 x per month Monitoring compliance: fair Blood glucose trend: fluctuating minimally breakfast time: after 10 am breakfast glucose level: 180-200 lunch time: 1-2 pm lunch glucose level: 180-200 dinner time: 5-6 pm dinner glucose level: 180-200 Bedtime: after 11 pm Bedtime glucose level: >200 High score: 180-200 Overall: >200 Weight trend: fluctuating minimally Current diet: diabetic Meal planning: avoidance of concentrated sweets Exercise: intermittently Dietitian visit: No Eye exam current: Yes Sees agricultural appraiser: No documented in this encounter [facility] 05-09-2024 History of Present illness Narrative Associated Problem(s): Left foot pain Intermittent pain, some days intense, no NT Possible Diabetic neuropathy If wants foot xray she will call Images from the original note were not included. Katalina Hutchins is a 59 y.o. female presents with chief complaint of Hypertension HPI: Hypertension This is a chronic problem. The current episode started more than 1 year ago. The problem is unchanged. The problem is controlled. Associated symptoms include anxiety. Pertinent negatives include no blurred vision, chest pain, headaches, orthopnea, palpitations, peripheral edema or shortness of breath. There are no associated agents to hypertension. Risk factors for coronary artery disease include diabetes mellitus, dyslipidemia, obesity, sedentary lifestyle and post-menopausal state. Past treatments include diuretics and angiotensin blockers. The current treatment provides moderate improvement. There are no compliance problems. There is no history of kidney disease or heart failure. Identifiable causes of hypertension include sleep apnea and a thyroid problem. There is no history of chronic renal disease. Depression Visit Type: follow-up Patient presents with the following symptoms: fatigue and nervousness/anxiety. Patient is not experiencing: anhedonia, chest pain, decreased concentration, depressed mood, excessive worry, feelings of hopelessness, feelings of worthlessness, insomnia, irritability, muscle tension, palpitations, shortness of breath, suicidal ideas, suicidal planning and thoughts of . Frequency of symptoms: occasionally Severity: mild Compliance with medications: 76-100% Anxiety Presents for follow-up visit. Symptoms include nervous/anxious behavior. Patient reports no chest pain, decreased concentration, depressed mood, dizziness (yesterday), excessive worry, insomnia, irritability, muscle tension, nausea, palpitations, shortness of breath or suicidal ideas. Symptoms occur occasionally. The severity of symptoms is mild. The quality of sleep is poor. Compliance with medications is 76-100%. SUBJECTIVE: MEDICATIONS: Current Outpatient Medications Medication Instructions albuterol HFA 90 mcg/act inhaler 2 puffs, Every 4 hours PRN cholecalciferol (VITAMIN D-3) 25 mcg, Oral, Daily DULoxetine (CYMBALTA) 60 mg, Oral, Daily EQ Aspirin Adult Low Dose 81 mg, Daily fexofenadine (YOLANDA) 180 mg, Oral, Daily PRN fluconazole (Diflucan) 150 MG tablet One time dose, repeat again in 3 days fluticasone (Flonase) 50 MCG/ACT nasal spray 2 sprays, Each Nostril, Daily hydroCHLOROthiazide (HYDRODiuril) 12.5 MG tablet 1 tablet, Daily ibuprofen 800 mg, Oral, Every 12 hours, Take with food insulin glargine-yfgn (SEMGLEE-YFGN) 60 Units, Nightly insulin lispro (HumaLOG) 100 UNIT/ML injection INJECT 15-20-25 UNITS ACCORDING TO MEAL SIZE PLUS ISS #3 (MAX DAILY DOSE OF 100 UNITS) insulin pen needle (ReliOn Pen [place]) 31G x 6 mm misc 1 each, Subcutaneous, 4 times daily Januvia 100 mg, Daily levothyroxine (Synthroid, Levoxyl) 200 MCG tablet 1 tablet, Daily before breakfast losartan (COZAAR) 100 mg, Oral, Daily metFORMIN (GLUCOPHAGE) 1,000 mg, Oral, 2 times daily simvastatin (ZOCOR) 5 mg, Oral, Nightly tiZANidine (ZANAFLEX) 4 mg, Oral, Nightly PRN ALLERGIES: Allergies Allergen Reactions Wound Dressing Adhesive Rash Latex Other and Rash REVIEW OF SYMPTOMS: Review of Systems Constitutional: Negative for appetite change, chills, fever and irritability. HENT: Negative for congestion, ear pain and sore throat. Eyes: Negative for blurred vision, pain, discharge, redness and visual disturbance. Respiratory: Negative for cough, shortness of breath and wheezing. Cardiovascular: Negative for chest pain, palpitations, orthopnea and leg swelling. Gastrointestinal: Negative for abdominal pain, blood in stool, constipation, diarrhea, nausea and vomiting. Genitourinary: Negative for difficulty urinating, dysuria and frequency. Musculoskeletal: Positive for arthralgias and myalgias. Negative for back pain and joint swelling. Skin: Negative for rash and wound. Neurological: Negative for dizziness (yesterday), tremors, seizures, syncope and headaches. Psychiatric/Behavioral: Positive for depression. Negative for behavioral problems, decreased concentration, self-injury and suicidal ideas. The patient is nervous/anxious. The patient does not have insomnia. Depression Hematological: Does not bruise/bleed easily. Endocrine: Negative for polydipsia, polyphagia and polyuria. Allergic/Immunologic: Negative for environmental allergies and food allergies. PAST MEDICAL HISTORY Past Medical History: Diagnosis Date Abnormal results of thyroid function studies Allergic rhinitis 07/04/2023 Anxiety and depression ([facility]) 06/09/2023 Arthritis At low risk for fall Chest pain Chronic pain Chronic pain of right knee COVID-19 virus detected DM (diabetes mellitus) ([facility]) 06/2017 Eczema Elevated BUN Essential hypertension ([facility]) 06/09/2023 Hidradenitis suppurativa HLD (hyperlipidemia) ([facility]) HTN (hypertension) ([facility]) Hypercalcemia Insomnia intermediate (current) use of insulin ([facility]) Morbid obesity with body mass index (BMI) of 40.0 to 49.9 ([facility]) Multinodular goiter ([facility]) Non compliance w medication regimen Onychomycosis KARINE (obstructive sleep apnea) Papillary thyroid carcinoma ([facility]) Paresthesia of left lower extremity Parotid mass Post-operative hypothyroidism ([facility]) Postmenopausal bleeding Sinusitis Type 2 diabetes mellitus 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 ([facility]) Uncontrolled type 2 diabetes mellitus 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, with long-term current use of insulin ([facility]) 06/09/2023 UTI symptoms Vitamin D deficiency Past Surgical History: Procedure Laterality Date CHOLECYSTECTOMY FINE NEEDLE ASPIRATE 03/10/2016 FNA left parotid IR FINE NEEDLE ASPIRATION THYROID 02/08/2020 OTHER SURGICAL HISTORY Cyst removed Armpit OTHER SURGICAL HISTORY multiple r/o boils ROTATOR CUFF REPAIR Right TOTAL KNEE ARTHROPLASTY Left 04/2015 DR. CABALLERO TOTAL THYROIDECTOMY 03/25/2020 at [facility]: papillary carcinoma 1/2 nodes positive in ant. compartment dissection family history includes Allergy (severe) in her mother; Alzheimer's disease in her father and paternal grandfather; Appendicitis in her father; Asthma in her mother; Atrial fibrillation in her father and mother; COPD in her mother; Cancer in her father, mother, and paternal grandmother; Carpal tunnel syndrome in her mother; Colon cancer in her father; Coronary artery disease in her father; Diabetes in her father and mother; Edema in her father; GREGORY disease in her father; Gallbladder disease in her father; Heart attack in her father, maternal grandfather, and mother; Heart disease in her father and mother; Hernia in her father; Hypersomnolence in her father; Hypertension in her father and mother; Hysterectomy in her mother; No Known Problems in her maternal grandmother and sister; Obesity in her father; RBBB in her father; Sleep apnea in her father; Supraventricular tachycardia in her father; Thyroid disease in her mother; Cole Parkinson White syndrome in her mother; hernia repair in her mother; uterine problem in her mother. OBJECTIVE: Visit Vitals BP 138/84 (BP Location: Right arm, Patient Position: Sitting, BP Cuff Size: Large adult) Pulse 93 Temp 97.6 F (Temporal) Resp 22 Ht 5' 4 Wt 293 lb SpO2 99% BMI 50.29 kg/m Smoking Status Former BSA 2.45 m Physical Exam Vitals and nursing note reviewed. Constitutional: General: She is not in acute distress. Appearance: Normal appearance. She is obese. She is not ill-appearing. HENT: Head: Normocephalic and atraumatic. Right Ear: Tympanic membrane, ear canal and external ear normal. Left Ear: Tympanic membrane, ear canal and external ear normal. Nose: Rhinorrhea present. No congestion. Mouth/Throat: Mouth: Mucous membranes are moist. Pharynx: No oropharyngeal exudate or posterior oropharyngeal erythema. Eyes: Extraocular Movements: Extraocular movements intact. Conjunctiva/sclera: Conjunctivae normal. Neck: Vascular: No carotid bruit. Cardiovascular: Rate and Rhythm: Normal rate and regular rhythm. Pulses: Normal pulses. Heart sounds: Normal heart sounds. Pulmonary: Effort: Pulmonary effort is normal. Breath sounds: Normal breath sounds. No wheezing or rales. Abdominal: General: Bowel sounds are normal. There is no distension. Palpations: Abdomen is soft. There is no mass. Tenderness: There is no abdominal tenderness. Musculoskeletal: General: Normal range of motion. Cervical back: Normal range of motion and neck supple. Right lower leg: No edema. Left lower leg: No edema. Comments: Tenderness to mid left foot metatarsal 3rd Lymphadenopathy: Cervical: No cervical adenopathy. Skin: General: Skin is warm and dry. Capillary Refill: Capillary refill takes 2 to 3 seconds. Findings: No rash (dry flaky skin). Neurological: General: No focal deficit present. Mental Status: She is alert and oriented to person, place, and time. Psychiatric: Mood and Affect: Mood normal. Behavior: Behavior normal. Thought Content: Thought content normal. Judgment: Judgment normal. ASSESSMENT AND PLAN: Follow up in about 3 months (around 08/07/2024) for Recheck. Problem List Items Addressed This Visit Essential hypertension ([facility]) - Primary Please check blood pressure daily and record DASH diet Limit caffeine Take medication as directed Contact office if chest pain, pressure, dizziness, shortness of breath, swelling legs Recommend slow position changes Current meds: hydrochlorothiazide, losartan Uncontrolled type 2 diabetes mellitus 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, with long-term current use of insulin ([facility]) Sugars are running 200-300, mother a few [...] for this Is taking arb, statin, asa Anxiety and depression ([facility]) Mother recently Current medication is duloxetine at 60mg Relevant Medications DULoxetine (Cymbalta) [address] capsule Bilateral lower extremity edema Limit sodium Elevate legs Cont diuretic Allergic rhinitis Continue with flonase and yolanda Relevant Medications fexofenadine (Oylanda) 180 MG tablet fluticasone (Flonase) 50 MCG/ACT nasal spray KARINE (obstructive sleep apnea) Non compliant with use Non compliant use can increase risk for stroke, MO, HTN, sudden Vitamin D deficiency Takes supplement daily Check labs yearly and prn Class 3 severe obesity due to excess calories with serious comorbidity and body mass index (BMI) of 50.0 to 59.9 in adult ([facility]) Discussed with patient their BMI (actual, verses recommended). We have also discussed lifestyle modifications: attempts to perform physical activity as chronic conditions allow, also to monitor dietary intake: increasing protein/fruits/veggies and lowering carb intake (unless contraindicated). Limit sodas, juices, and sugary drinks. Also discussed oral medications that can be utilized for weight loss, as well as surgical options for weight loss. Encounter for screening mammogram for malignant neoplasm of breast Relevant Orders Bilateral screening mammogram Left foot pain Intermittent pain, some days intense, no NT Possible Diabetic neuropathy If wants foot xray she will call Other chronic pain Relevant Medications ibuprofen 800 MG tablet Associated Problem(s): Allergic rhinitis Continue with flonase and yolanda Associated Problem(s): Anxiety and depression ([facility]) Mother recently Current medication is duloxetine at 60mg Associated Problem(s): Class 3 severe obesity due to excess calories with serious comorbidity and body mass index (BMI) of 50.0 to 59.9 in adult (CMS/HCC) Discussed with patient their BMI (actual, verses recommended). We have also discussed lifestyle modifications: attempts to perform physical activity as chronic conditions allow, also to monitor dietary intake: increasing protein/fruits/veggies and lowering carb intake (unless contraindicated). Limit sodas, juices, and sugary drinks. Also discussed oral medications that can be utilized for weight loss, as well as surgical options for weight loss. Associated Problem(s): Uncontrolled type 2 diabetes mellitus 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, with long-term current use of insulin ([facility]) Sugars are running 200-300, mother a few [...] for this Is taking arb, statin, asa Associated Problem(s): Vitamin D deficiency Takes supplement daily Check labs yearly and prn Associated Problem(s): Bilateral lower extremity edema Limit sodium Elevate legs Cont diuretic Associated Problem(s): Essential hypertension (CMS/HCC) Please check blood pressure daily and record DASH diet Limit caffeine Take medication as directed Contact office if chest pain, pressure, dizziness, shortness of breath, swelling legs Recommend slow position changes Current meds: hydrochlorothiazide, losartan Associated Problem(s): KARINE (obstructive sleep apnea) Non compliant with use Non compliant use can increase risk for stroke, MO, HTN, sudden documented in this encounter [facility] 05-09-2024 Instructions Katalina Colbert NP - 05/09/2024 1:00 PM EST Diabetes: continue with dr khan Need mammogram-order faxed documented in this encounter [facility] 03-23-2024 Telephone encounter Note Patient called this afternoon, apologizing for missing Dr. Pringle's phone appointment. Her Mother had on Tuesday and had family over and didn't hear her phone ringing. She wanted to see if she should reschedule- but when told about the phone visit and labs in Jul 2024 she was ok with those appointments. ELLA Navarro [facility] 03-23-2024 Miscellaneous Notes Patient called this afternoon, apologizing for missing Dr. Pringle's phone appointment. Her Mother had on Tuesday and had family over and didn't hear her phone ringing. She wanted to see if she should reschedule- but when told about the phone visit and labs in Jul 2024 she was ok with those appointments. ELLA Navarro Faxed orders to [facility]. To be drawn by 07/11 to be ready for phone visit on 07/25. Also mailed copies to patient. Watching for signed orders and will finish PSS-Per Dr Pringle, he was unable to reach pt for her phone visit. He would like patient to have labs rechecked and then a phone visit in July. These labs will take 7-10 days, so pt will need to have phone visit scheduled 2 weeks after labs. Once signed, please fax orders to [facility] and also mail paper copy to patient. Dr Pringle- please sign pended orders for July and synthroid refill so pt will not run out again. Thank you Argenis Reynolds, SHAYLA documented in this encounter [facility] 03-23-2024 Telephone encounter Note Faxed orders to [facility]. To be drawn by 07/11 to be ready for phone visit on 07/25. Also mailed copies to patient. [facility] 03-23-2024 Telephone encounter Note Watching for signed orders and will finish [facility] 03-22-2024 Telephone encounter Note PSS-Per Dr Pringle, he was unable to reach pt for her phone visit. He would like patient to have labs rechecked and then a phone visit in July. These labs will take 7-10 days, so pt will need to have phone visit scheduled 2 weeks after labs. Once signed, please fax orders to [facility] and also mail paper copy to patient. Dr Pringle- please sign pended orders for February and synthroid refill so pt will not run out again. Thank you Argenis Reynolds, RN [facility] 03-22-2024 Note HNO ID: [id number] Author: Zion PRINGLE MD Service: ? Author Type: Physician Type: Progress Notes Filed: 03/22/2024 14:36 Note Text: Left message. Zion Pringle MD [facility] 03-22-2024 History of Present illness Narrative Left message. Zion Pringle MD documented in this encounter [facility] 03-13-2024 Note HNO ID: [id number] Author: Zion PRINGLE MD Service: ? Author Type: Physician Type: Progress Notes Filed: 06/05/2024 13:12 Note Text: AMBULATORY TELEPHONE VISIT Call made on 03/24/23 Katalina Hutchins has consented to this telephone encounter. Persons Present: patient Chief Complaint/Reason: Thyroid, papillary classic variant bilateral, multifocal on the right with lymph node involvement, stage I [id number], status post total thyroidectomy. Patient received I-131 ablative therapy, 75.9 mCi on 07/09/2020 HPI: Doing well. Denies significant problems. No chest pain palpitations feelings of anxiousness. Denies dysphagia. Denies any weight gain. Data Reviewed: Most recent labs Ref. Range 05/27/22 09/08/22 11/18/22 03/24/23 07/28/23 T4 Latest Ref Range: 5.5 - 10.2 ug/dL 11.0 (T3 77) 11.7 11.4 15 16.5 TSH Latest Ref Range: 0.270 - 4.200 uU/mL 35.436 10.637 4.19 3.32 0.656 Thyroglobulin Ab Latest Ref Range: <14.4 IU/mL <1.0 Thyroglobulin Latest Ref Range: 1.6 - 59.9 ng/mL <0.1 <2.0 Calcium 10.2 02/10/21 Assessment:Thyroid, papillary classic variant bilateral, multifocal on the right with lymph node involvement, stage I [id number], status post total thyroidectomy. Plan: TSH appropriate. Clinically doing well without issues. T4 slightly elevated however given or her TSH shows and lack of hyperthyroid symptoms recommend keeping same dose and recheck labs in 6 months. Total Time Spent: 5 minutes Zion Pringle MD [facility] 03-08-2024 History of Present illness Narrative Katalina Hutchins is a 59 y.o. female No ref. provider found presents with chief complaint of Diabetes HPI: Interim history: 03/2024. Followup visit 03/08/2024 for A1c. In the office 7.2 , blood sugar is144, Currently on Lantus 60, Humalog 15, 20,25 plus scale, on metformin 1000 mg bid, januvai 100 mg . Lab in December/2023 vitamin-D 52, C-peptide 3.9, kidney function within normal limits, total cholesterol 163, HDL 67, LDL 73, AL/cr 6 Interim history: 12/2023. Followup visit 12/07/2023 for A1c. In the office 9.5 , blood sugar is 269. Currently on Lantus 60, Humalog 15, 20,25 plus scale. off mounjar 5 mg weekly due to insurance, on metformin 1000 mg bid. Interim history: 06/2023. Followup visit 06/30/2023 for A1c. In the office 7.5, blood sugar is 227. Currently on Lantus 60, Humalog 15, 20,25 plus scale. No meter with her. on mounjar 5 mg weekly, on metformin Interim history: 03/2023. Followup visit 03/11/2023 for A1c. In the office, 10.3, blood sugar is 266. Labs done in February 2023. C-peptide 3.2 and vitamin D 51, GFR above 60, total cholesterol 179, triglycerides 112, LDL 86, albumin/creatinine 18. Currently on Lantus 60, Humalog 15, 18, 20 plus scale. No meter with her. She is not taking her Trulicity and metformin, does not remember the dose. HPI: 10/2022 New patient sent from Katalina Colbert for uncontrolled diabetes. A1c in our office, 10.5, blood sugar is 239. She has diabetes for almost 15 years. She is morbidly obese. Body mass index 49. Currently she is on glipizide 10 mg once a day, Lantus 35 in the morning, 50 at bedtime and Humalog, barely uses it, 6-8 units once or twice a day. Last eye exam October 2021. Due for one. Denies heart disease or stroke before. MEDICATIONS: Current Outpatient Medications Medication Instructions albuterol HFA 90 mcg/act inhaler 2 puffs, Inhalation, Every 4 hours PRN cholecalciferol (VITAMIN D-3) 25 mcg, Oral, Daily DULoxetine (CYMBALTA) 60 mg, Oral, Daily EQ Aspirin Adult Low Dose 81 mg, Oral, Daily fexofenadine (YOLANDA) 180 mg, Oral, Daily PRN fluticasone (Flonase) 50 MCG/ACT nasal spray 2 sprays, Each Nostril, Daily hydroCHLOROthiazide (HYDRODiuril) 12.5 MG tablet 1 tablet, Oral, Daily hydroCHLOROthiazide (MICROZIDE) 12.5 mg, Oral, Daily, Take 1 capsule (12.5 mg) by mouth in the morning. ibuprofen 800 mg, Oral, Every 12 hours PRN insulin glargine-yfgn (SEMGLEE-YFGN) 60 Units, Subcutaneous, Nightly insulin lispro (HUMALOG) 1 Units, Subcutaneous, 3 times daily with meals, INJECT 15-20-25 UNITS ACCORDING TO MEAL SIZE PLUS ISS #3 (MAX DAILY DOSE OF 100 UNITS)
insulin pen needle (ReliOn Pen [place]) 31G x 6 mm misc 1 each, Subcutaneous, 4 times daily Januvia 100 mg, Oral, Daily levothyroxine (Synthroid, Levoxyl) 200 MCG tablet 1 tablet, Oral, Daily before breakfast losartan (COZAAR) 100 mg, Oral, Daily metFORMIN (GLUCOPHAGE) 1,000 mg, Oral, 2 times daily simvastatin (ZOCOR) 5 mg, Oral, Nightly Tirzepatide (Mounjaro) 5 MG/0.5ML solution pen-injector 1 Dose, Subcutaneous, Weekly tiZANidine (ZANAFLEX) 4 mg, Oral, Nightly PRN ALLERGIES: Allergies Allergen Reactions Wound Dressing Adhesive Rash Latex Other and Rash Past Medical History: Diagnosis Date Abnormal results of thyroid function studies Allergic rhinitis 07/04/2023 Anxiety and depression ([facility]) 06/09/2023 Arthritis At low risk for fall Chest pain Chronic pain Chronic pain of right knee COVID-19 virus detected DM (diabetes mellitus) ([facility]) 06/2017 Eczema Elevated BUN Essential hypertension ([facility]) 06/09/2023 Hidradenitis suppurativa HLD (hyperlipidemia) ([facility]) HTN (hypertension) ([facility]) Hypercalcemia Insomnia intermediate (current) use of insulin ([facility]) Morbid obesity with body mass index (BMI) of 40.0 to 49.9 ([facility]) Multinodular goiter ([facility]) Non compliance w medication regimen Onychomycosis KARINE (obstructive sleep apnea) Papillary thyroid carcinoma ([facility]) Paresthesia of left lower extremity Parotid mass Post-operative hypothyroidism ([facility]) Postmenopausal bleeding Sinusitis Type 2 diabetes mellitus 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 ([facility]) Uncontrolled type 2 diabetes mellitus 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, with long-term current use of insulin ([facility]) 06/09/2023 UTI symptoms Vitamin D deficiency Past Surgical History: Procedure Laterality Date CHOLECYSTECTOMY FINE NEEDLE ASPIRATE 03/10/2016 FNA left parotid IR FINE NEEDLE ASPIRATION THYROID 02/08/2020 OTHER SURGICAL HISTORY Cyst removed Armpit OTHER SURGICAL HISTORY multiple r/o boils ROTATOR CUFF REPAIR Right TOTAL KNEE ARTHROPLASTY Left 04/2015 DR. CABALLERO TOTAL THYROIDECTOMY 03/25/2020 at [facility]: papillary carcinoma 1/2 nodes positive in ant. compartment dissection REVIEW OF SYMPTOMS: 14 POINT OF SYSTEM REVIEWED AND NEGATIVE OBJECTIVE: Constitutional: Afebrile @ home; no weakness or night sweats SKIN: No change in skin color; no itching, rash or lesions; no hair loss; HEENT: No HAs or injury; no dizziness; No difficulty with vision; no eye pain, discharge or lesions; no hearing loss or difficulty; no nasal discharge, NECK: No pain, limitation of motion, lumps or swollen glands RESP: No cough, wheezing or difficulty breathing. No CP with breathing; CARDIO: No CP , SOB or fatigue, No edema, palpitations or dyspnea with exertion GI: No N/V/D or abd. pain; good appetite with no recent change. No heart burn, liver or gallbladder disease; no rectal bleeding or pain : No urinary pain , frequency or odor. MUSCULOSKELETAL: No muscle pain or cramps; no extremity weakness.No joint pain, stiffness, swelling or limitation of movement NEUROLOGY: No H/O seizures, stroke or fainting. No weakness, tremors. Hematology: No bleeding problems or excessive bruising ENDOCRINE: No increase in hunger, thirst or urination; admits compliance to medical management plan Feet: numbness tingling yes , ulcers or skin break no Lab Results Component Value Date HGBA1C 7.2 03/08/2024 Lab Results Component Value Date GLU 144 03/08/2024 GLU 238 (H) 12/07/2023 GLU 204 (HH) 06/20/2022 Visit Vitals Pulse 87 Comment: O2 SAT 98% Resp 20 Ht 5' 4 Wt 294 lb BMI 50.46 kg/m Smoking Status Former BSA 2.45 m ASSESSMENT AND PLAN: Assessment/Plan Diagnoses and all orders for this visit: Type 2 diabetes mellitus 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, unspecified whether penitentiary insulin use ([facility]) - POCT glycosylated hemoglobin (Hb A1C) docked device - POCT glucose manually resulted Insulin long-term use ([facility]) Hyperlipemia, mixed ([facility]) Vitamin D deficiency Encounter for dietary consultation Class 3 severe obesity with serious comorbidity and body mass index (BMI) of 50.0 to 59.9 in adult, unspecified obesity type ([facility]) Follow up in about 4 months (around 07/09/2024). documented in this encounter [facility] 02-28-2024 Telephone encounter Note MEDICATION SENT TO PHARMACY. [facility] 02-28-2024 Miscellaneous Notes MEDICATION SENT TO PHARMACY. Pen needle refill needed please and thank you! documented in this encounter [facility] 02-27-2024 Telephone encounter Note Pen needle refill needed please and thank you! [facility] 02-14-2024 Telephone encounter Note Please contact pt to reschedule phone visit. Labs in 4 weeks with phone visit AFTER. Argenis Reynolds RN [facility] 02-14-2024 Miscellaneous Notes Please contact pt to reschedule phone visit. Labs in 4 weeks with phone visit AFTER. Argenis Reynolds RN ARMANI- can you please respond to below. As of now, pt is still on for follow up phone call tomorrow. Thank you! Argenis Reynolds RN Dr. Julien please sign pended levothyroxine refill pending your approval. Patient is out of medication and needs this filled today please. Dr. Pringle: Katalina called asking about her follow up appointment. She requested a levothyroxine refill. She states she has been out of her med for 2 weeks. She is currently scheduled for a phone visit with you 02/15/24. Do you want to reschedule that until patient has been taking her medication routinely? Please advise. Kaitlynn Carreon RN documented in this encounter [facility] 02-14-2024 Telephone encounter Note ARMANI- can you please respond to below. As of now, pt is still on for follow up phone call tomorrow. Thank you! Argenis Reynolds RN [facility] 02-08-2024 History of Present illness Narrative Associated Problem(s): Hidradenitis suppurativa of multiple sites Atb, warm compress, fu if needed Associated Problem(s): KARINE (obstructive sleep apnea) Non compliant with use Which could also be related to her fatigue in addition to lack of thyroid med for 2-3 weeks Associated Problem(s): Anxiety and depression (CMS/HCC) Stable on current meds Associated Problem(s): Papillary thyroid carcinoma (CMS/HCC) Continue with dr campa He also manages her thyroid dose Associated Problem(s): Arthritis of knee, right Recommend weight loss Cont NSAID Associated Problem(s): Essential hypertension (CMS/HCC) Continue current meds at this time No changes Pt is out of thyroid medication, for at least 2 to 3 weeks. Pt has been sob since yesterday and did not get much sleep last night do to back pain/arthritis all over. Bs was 99 last night Images from the original note were not included. Katalina Hutchins is a 59 y.o. female presents with chief complaint of No chief complaint on file. HPI: Hypertension This is a chronic problem. The current episode started more than 1 year ago. The problem is unchanged. The problem is controlled. Associated symptoms include anxiety, malaise/fatigue and shortness of breath. Pertinent negatives include no blurred vision, chest pain, headaches, neck pain, orthopnea, palpitations, peripheral edema or PND. There are no associated agents to hypertension. Risk factors for coronary artery disease include diabetes mellitus, dyslipidemia, obesity and sedentary lifestyle. Past treatments include angiotensin blockers. The current treatment provides significant improvement. There are no compliance problems. Anxiety Presents for follow-up visit. Symptoms include depressed mood, insomnia, nervous/anxious behavior and shortness of breath. Patient reports no chest pain, compulsions, dizziness, excessive worry, hyperventilation, irritability, muscle tension, nausea, palpitations, restlessness or suicidal ideas. Symptoms occur occasionally. The severity of symptoms is mild. The quality of sleep is fair. Nighttime awakenings: several. Compliance with medications is 76-100%. Depression Visit Type: follow-up Patient presents with the following symptoms: depressed mood, insomnia, nervousness/anxiety and shortness of breath. Patient is not experiencing: anhedonia, chest pain, compulsions, excessive worry, feelings of hopelessness, feelings of worthlessness, hypersomnia, hyperventilation, irritability, muscle tension, nausea, palpitations, psychomotor agitation, psychomotor retardation, restlessness, suicidal ideas, suicidal planning and thoughts of . Frequency of symptoms: occasionally Severity: mild Compliance with medications: 76-100% SUBJECTIVE: MEDICATIONS: Current Outpatient Medications Medication Instructions cholecalciferol (VITAMIN D-3) 1,000 Units, Oral, Daily doxycycline (VIBRA-TABS) 100 mg, Oral, 2 times daily, Take with a full glass of water and do not lie down for at least 30 minutes after. DULoxetine (CYMBALTA) 60 mg, Oral, Daily EQ Aspirin Adult Low Dose 81 mg, Oral, Daily fexofenadine (YOLANDA) 180 mg, Oral, Daily PRN fluticasone (Flonase) 50 MCG/ACT nasal spray 2 sprays, Each Nostril, Daily hydroCHLOROthiazide (MICROZIDE) 12.5 mg, Oral, Daily, Take 1 capsule (12.5 mg) by mouth in the morning. ibuprofen 800 mg, Oral, Every 12 hours PRN insulin glargine-yfgn (SEMGLEE-YFGN) 60 Units, Subcutaneous, Nightly insulin lispro (HUMALOG) 1 Units, Subcutaneous, 3 times daily with meals, INJECT 15-20-25 UNITS ACCORDING TO MEAL SIZE PLUS ISS #3 (MAX DAILY DOSE OF 100 UNITS)
Januvia 100 mg, Oral, Daily levothyroxine (Synthroid, Levoxyl) 200 MCG tablet 1 tablet, Oral, Daily before breakfast losartan (COZAAR) 100 mg, Oral, Daily metFORMIN (GLUCOPHAGE) 1,000 mg, Oral, 2 times daily ReliOn Pen [place] 31G X 6 MM misc 1 each, Subcutaneous, 2 times daily simvastatin (ZOCOR) 5 mg, Oral, Nightly tiZANidine (ZANAFLEX) 4 mg, Oral, Nightly PRN ALLERGIES: Allergies Allergen Reactions Wound Dressing Adhesive Rash Latex Other and Rash REVIEW OF SYMPTOMS: Review of Systems Constitutional: Positive for fatigue and malaise/fatigue. Negative for appetite change, chills, fever and irritability. HENT: Negative for congestion, ear pain and sore throat. Eyes: Negative for blurred vision, pain, discharge, redness and visual disturbance. Respiratory: Positive for shortness of breath. Negative for cough and wheezing. Cardiovascular: Negative for chest pain, palpitations, orthopnea, leg swelling and PND. Gastrointestinal: Negative for abdominal pain, blood in stool, constipation, diarrhea, nausea and vomiting. Genitourinary: Negative for difficulty urinating, dysuria and frequency. Musculoskeletal: Positive for arthralgias. Negative for back pain, joint swelling, myalgias and neck pain. Skin: Negative for rash and wound. Neurological: Negative for dizziness, tremors, seizures, syncope and headaches. Psychiatric/Behavioral: Positive for depression. Negative for behavioral problems, self-injury and suicidal ideas. The patient is nervous/anxious and has insomnia. Depression Hematological: Does not bruise/bleed easily. Endocrine: Negative for polydipsia, polyphagia and polyuria. Allergic/Immunologic: Negative for environmental allergies and food allergies. PAST MEDICAL HISTORY Past Medical History: Diagnosis Date Abnormal results of thyroid function studies Allergic rhinitis 07/04/2023 Anxiety and depression ([facility]) 06/09/2023 Arthritis At low risk for fall Chest pain Chronic pain Chronic pain of right knee COVID-19 virus detected DM (diabetes mellitus) ([facility]) 06/2017 Eczema Elevated BUN Essential hypertension ([facility]) 06/09/2023 Hidradenitis suppurativa HLD (hyperlipidemia) ([facility]) Hypercalcemia Insomnia Multinodular goiter ([facility]) Non compliance w medication regimen Onychomycosis Papillary thyroid carcinoma ([facility]) Paresthesia of left lower extremity Parotid mass Post-operative hypothyroidism ([facility]) Postmenopausal bleeding Sinusitis Uncontrolled type 2 diabetes mellitus 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, with long-term current use of insulin ([facility]) 06/09/2023 UTI symptoms Past Surgical History: Procedure Laterality Date CHOLECYSTECTOMY FINE NEEDLE ASPIRATE 03/10/2016 FNA left parotid IR FINE NEEDLE ASPIRATION THYROID 02/08/2020 OTHER SURGICAL HISTORY Cyst removed Armpit OTHER SURGICAL HISTORY multiple r/o boils ROTATOR CUFF REPAIR Right TOTAL KNEE ARTHROPLASTY Left 04/2015 DR. CABALLERO TOTAL THYROIDECTOMY 03/25/2020 at [facility]: papillary carcinoma 1/2 nodes positive in ant. compartment dissection family history includes Allergy (severe) in her mother; Alzheimer's disease in her father and paternal grandfather; Appendicitis in her father; Asthma in her mother; Atrial fibrillation in her father and mother; COPD in her mother; Cancer in her father, mother, and paternal grandmother; Carpal tunnel syndrome in her mother; Colon cancer in her father; Coronary artery disease in her father; Diabetes in her father and mother; Edema in her father; GREGORY disease in her father; Gallbladder disease in her father; Heart attack in her father, maternal grandfather, and mother; Heart disease in her father and mother; Hernia in her father; Hypersomnolence in her father; Hypertension in her father and mother; Hysterectomy in her mother; No Known Problems in her maternal grandmother and sister; Obesity in her father; RBBB in her father; Sleep apnea in her father; Supraventricular tachycardia in her father; Thyroid disease in her mother; Cole Parkinson White syndrome in her mother; hernia repair in her mother; uterine problem in her mother. OBJECTIVE: Visit Vitals BP 126/72 (BP Location: Left arm, Patient Position: Sitting, BP Cuff Size: Large adult long) Pulse 87 Temp 97.5 F (Temporal) Resp 21 Ht 5' 4 Wt 299 lb 3.2 oz SpO2 96% BMI 51.36 kg/m Smoking Status Former BSA 2.48 m Physical Exam Vitals and nursing note reviewed. Constitutional: General: She is not in acute distress. Appearance: Normal appearance. She is obese. HENT: Head: Normocephalic and atraumatic. Right Ear: External ear normal. Left Ear: External ear normal. Nose: Nose normal. Mouth/Throat: Mouth: Mucous membranes are moist. Eyes: Extraocular Movements: Extraocular movements intact. Conjunctiva/sclera: Conjunctivae normal. Neck: Vascular: No carotid bruit. Cardiovascular: Rate and Rhythm: Normal rate and regular rhythm. Pulses: Normal pulses. Heart sounds: Normal heart sounds. Pulmonary: Effort: Pulmonary effort is normal. No respiratory distress. Breath sounds: Normal breath sounds. No wheezing. Abdominal: General: Bowel sounds are normal. There is no distension. Palpations: Abdomen is soft. There is no mass. Tenderness: There is no abdominal tenderness. Musculoskeletal: General: Normal range of motion. Cervical back: Normal range of motion and neck supple. Right lower leg: Edema (trace) present. Left lower leg: Edema (trace) present. Lymphadenopathy: Cervical: No cervical adenopathy. Skin: General: Skin is warm and dry. Capillary Refill: Capillary refill takes 2 to 3 seconds. Findings: No rash. Comments: Skin lesions c/w HS Lesion to right side of abd wall/pannus: measures approx 2.5cmx2.5cm No fluctuance, Neurological: General: No focal deficit present. Mental Status: She is alert and oriented to person, place, and time. Psychiatric: Mood and Affect: Mood normal. Behavior: Behavior normal. Thought Content: Thought content normal. Judgment: Judgment normal. ASSESSMENT AND PLAN: No follow-ups on file. Problem List Items Addressed This Visit Essential hypertension (CMS/HCC) - Primary Continue current meds at this time No changes Anxiety and depression (CMS/HCC) Stable on current meds Bilateral lower extremity edema Arthritis of knee, right Recommend weight loss Cont NSAID Papillary thyroid carcinoma (CMS/HCC) Continue with dr campa He also manages her thyroid dose KARINE (obstructive sleep apnea) Non compliant with use Which could also be related to her fatigue in addition to lack of thyroid med for 2-3 weeks RESOLVED: Malignant neoplasm of thyroid gland (CMS/HCC) Class 3 severe obesity due to excess calories with serious comorbidity and body mass index (BMI) of 50.0 to 59.9 in adult (CMS/HCC) Hidradenitis suppurativa of multiple sites Atb, warm compress, fu if needed Relevant Medications doxycycline (Vibra-Tabs) 100 MG tablet documented in this encounter [facility] 02-08-[address] Victoria please sign pended levothyroxine refill pending your approval. Patient is out of medication and needs this filled today please. Dr. Pringle: Katalina called asking about her follow up appointment. She requested a levothyroxine refill. She states she has been out of her med for 2 weeks. She is currently scheduled for a phone visit with you 02/15/24. Do you want to reschedule that until patient has been taking her medication routinely? Please advise. Kaitlynn Carreon RN [facility] 09-30-2023 Miscellaneous Notes ----- Message from Latosha Corbett DO sent at 09/30/2023 8:03 AM EDT ----- Please let patient know that she had precancerous tubular adenoma and I recommend repeat colonoscopy in 5 years for surveillance unless problems prior to that. Thanks, Dr. Donovan Spoke with patient regarding pathology results. Patient verbally understood with no further questions. Recall will be put in chart. documented in this encounter [facility] 09-30-2023 Telephone encounter Note ----- Message from Latosha Corbett DO sent at 09/30/2023 8:03 AM EDT ----- Please let patient know that she had precancerous tubular adenoma and I recommend repeat colonoscopy in 5 years for surveillance unless problems prior to that. Thanks, Dr. Donovan [facility] 09-30-2023 Telephone encounter Note Spoke with patient regarding pathology results. Patient verbally understood with no further questions. Recall will be put in chart. [facility] 09-13-2023 History of Present illness Narrative Images from the original note were not included. Chief Complaint: Family history of colon cancer History of Present Illness Katalina Hutchins is a 58 y.o. female who presents to the office for surveillance colonoscopy. There is a family history of colon cancer in her mother and father. She denies diarrhea, constipation, abdominal pain, melena, hematochezia, unexplained weight loss. Her last colonoscopy was in 2019. Review of Systems Constitutional: Negative for fever and unexpected weight change. HENT: Negative for trouble swallowing. Respiratory: Negative for shortness of breath. Cardiovascular: Negative for chest pain. Gastrointestinal: Negative for nausea, vomiting, abdominal pain, diarrhea, constipation, blood in stool and black tarry stool. Genitourinary: Negative for dysuria and difficulty urinating. Musculoskeletal: Negative for gait problem. Skin: Negative for rash and wound. Neurological: Negative for dizziness, weakness and light-headedness. Hematological: Does not bruise/bleed easily. Psychiatric/Behavioral: Negative for confusion. Past Medical History: Diagnosis Date Anxiety Arthritis Diabetes mellitus type 2, controlled ([facility]) Eczema Fatty liver Hyperlipidemia Hypertension Obesity Seasonal allergies Shortness of breath Sleep apnea CPAP Thyroid cancer ([facility]) Visual impairment glasses Past Surgical History: Procedure Laterality Date BIOPSY MASS parotid biopsy left side CHOLECYSTECTOMY COLONOSCOPY N/A 08/31/2018 Performed by Latosha Corbett DO at [facility] LESION TRUNK / ARM / LEG boils JOINT REPLACEMENT Left 2015 knee ROTATOR CUFF REPAIR Right THYROIDECTOMY Allergies Allergen Reactions Adhesive Rash Latex Rash Current Outpatient Medications: albuterol (PROVENTIL HFA;VENTOLIN HFA) 90 mcg/actuation inhaler, , Disp: , Rfl: 1 aspirin 81 mg chewable tablet, Chew 1 tablet (81 mg total) and swallow., Disp: , Rfl: cetirizine (ZyrTEC) 10 mg tablet, Take 1 tablet (10 mg total) by mouth., Disp: , Rfl: cholecalciferol, vitamin D3, (VITAMIN D3) 1,000 units tablet, Take 1 tablet (1,000 Units total) by mouth., Disp: , Rfl: DULoxetine (CYMBALTA) 60 mg capsule, Take 1 capsule (60 mg total) by mouth in the morning., Disp: , Rfl: fluticasone (FLONASE) 50 mcg/actuation nasal spray, Administer 1 spray into each nostril in the morning., Disp: , Rfl: hydroCHLOROthiazide (MICROZIDE) 12.5 mg capsule, Take 1 capsule (12.5 mg total) by mouth daily., Disp: , Rfl: ibuprofen (ADVIL,MOTRIN) 200 mg tablet, Take 1 tablet (200 mg total) by mouth every 6 (six) hours as needed for pain., Disp: , Rfl: insulin glargine (LANTUS, BASAGLAR) 100 unit/mL (3 mL) insulin pen, Inject 60 Units under the skin nightly., Disp: , Rfl: insulin lispro (HumaLOG) 100 unit/mL insulin pen, INJECT 15-20-25 UNITS ACCORDING TO MEAL SIZE PLUS ISS #3 (MAX DAILY DOSE OF 100 UNITS), Disp: , Rfl: levothyroxine (SYNTHROID, LEVOTHROID) 200 MCG tablet, Take 1 tablet (200 mcg total) by mouth in the morning., Disp: , Rfl: losartan (COZAAR) 50 mg tablet, Take 2 tablets (100 mg total) by mouth in the morning., Disp: , Rfl: metFORMIN (GLUCOPHAGE) 1000 mg tablet, Take 1 tablet (1,000 mg total) by mouth in the morning and 1 tablet (1,000 mg total) in the evening. Take with meals., Disp: , Rfl: MOUNJARO 5 mg/0.5 mL pen injector, once a week., Disp: , Rfl: multivitamin (THERAGRAN) tablet, Take 1 tablet by mouth., Disp: , Rfl: simvastatin (ZOCOR) 5 mg tablet, Take 1 tablet (5 mg total) by mouth nightly., Disp: , Rfl: tiZANidine (ZANAFLEX) 4 mg tablet, Take 1 tablet (4 mg total) by mouth every 6 (six) hours as needed for muscle spasms., Disp: , Rfl: sod sulf-pot chloride-mag sulf 1.479-0.188- 0.225 gram tablet, Please see instructional sheet given by physicians office., Disp: 24 tablet, Rfl: 0 Social History Socioeconomic History Marital status: Single Spouse name: Not on file Number of children: Not on file Years of education: Not on file Highest education level: Not on file Occupational History Not on file Tobacco Use Smoking status: Former Smokeless tobacco: Never Vaping Use Vaping Use: Never used Substance and Sexual Activity Alcohol use: Yes Comment: rare Drug use: No Sexual activity: Defer Other Topics Concern Not on file Social History Narrative Not on file Social Determinants of Health Financial Resource Strain: Not on file Food Insecurity: Not on file Transportation Needs: Not on file Physical Activity: Not on file Stress: Not on file Social Connections: Not on file Interpersonal Safety: Not on file Housing Instability: Not on file Family History Problem Relation Age of Onset Uterine cancer Mother Heart disease Mother Heart attack Mother x2 COPD Mother Diabetes Mother Colon cancer Mother Colon cancer Father Heart attack Father Diabetes Father Heart disease Maternal Grandfather Colon cancer Paternal Grandmother Breast cancer Paternal Grandmother Objective Physical Exam Constitutional: General: She is not in acute distress. Appearance: Normal appearance. She is obese. She is not ill-appearing. HENT: Head: Normocephalic and atraumatic. Mouth/Throat: Mouth: Mucous membranes are moist. Eyes: Pupils: Pupils are equal, round, and reactive to light. Cardiovascular: Rate and Rhythm: Normal rate. Pulmonary: Effort: Pulmonary effort is normal. No respiratory distress. Abdominal: General: There is no distension. Palpations: Abdomen is soft. Musculoskeletal: General: Normal range of motion. Skin: General: Skin is warm and dry. Neurological: Mental Status: She is alert and oriented to person, place, and time. Mental status is at baseline. Vital Signs: Height 165.1 cm (5' 5 ), weight 134.4 kg (296 lb 3.2 oz). Respiratory Source: No data recorded Admission Weight: Weight: 134.4 kg (296 lb 3.2 oz) Labs Lab Results Component Value Date WBC 4.7 (L) 01/10/2018 HGB 13.3 01/10/2018 HCT 38.6 01/10/2018 MCV 87 01/10/2018 PLT 145 (L) 01/10/2018 Lab Results Component Value Date GLU 218 (H) 02/10/2021 CALCIUM 10.2 02/10/2021 K 4.2 02/10/2021 CO2 30 02/10/2021 CL 96 (L) 02/10/2021 BUN 12 02/10/2021 CREATININE 1.06 (H) 02/10/2021 No results found for: AMYLASE No results found for: LIPASE Lab Results Component Value Date ALT 27 01/10/2018 AST 33 01/10/2018 ALKPHOS 33 (L) 01/10/2018 Lab Results Component Value Date INR 1.2 01/10/2018 PROTIME 13.9 (H) 01/10/2018 Imaging Colonoscopy 08/31/2018: Findings: The perianal and digital rectal examinations were normal. Two sessile polyps were found in the rectum. The polyps were 3 to 5 mm in size. These polyps were removed with a hot snare. Resection and retrieval were complete. A 5 mm polyp was found in the recto-sigmoid colon. The polyp was sessile. Fulguration to ablate the lesion by monopolar probe was successful. The exam was otherwise without abnormality. Estimated Blood Loss: Estimated blood loss was minimal. Impression: - Two 3 to 5 mm polyps in the rectum, removed with a hot snare. Resected and retrieved. - One 5 mm polyp at the recto-sigmoid colon. Treated with a monopolar probe. - The examination was otherwise normal. Final Pathologic Diagnosis Rectal polyps, biopsy: Changes consistent with mucosal prolapse. Assessment Katalina Hutchins is a 58 y.o.female who presents to the office for colonoscopy due to a family history of colon cancer in her mother and father. Plan Colonoscopy with possible biopsy and/or polypectomy. Risks, benefits, and alternatives discussed with patient. Educated on bowel evacuation preparation. Patient verbalizes understanding and wishes to proceed. Evaluation included: Preparing to see the patient (e.g., review of tests) Obtaining and/or reviewing separately obtained history Performing a medically appropriate examination and/or evaluation Counseling and educating the patient/family/caregiver Referring and communicating with other health care management associate Encounter for colonoscopy in patient with family history of colon cancer [Z12.11, Z80.0] CLARE ROJAS [facility] General Surgery [place] This note was created with the assistance of a speech recognition program. While intending to generate a timely document that accurately reflects the content of the visit, no guarantee can be provided that every grammatical or spelling mistake has been or will be identified or corrected. Thank you for your understanding. CLARE Rojas 09/13/23 1037 documented in this encounter [facility] 08-04-2023 Miscellaneous Notes Changed appt Spoke to pt as thyroglobulin is not back yet from [facility]. They are unsure when it will result. PSS- please change phone visit to 08/08 at 3:30pm. Thank you documented in this encounter [facility] 05-04-2023 Miscellaneous Notes Please review and sign if agreeable. Argenis Weyer, RN documented in this encounter [facility] 03-24-2023 Miscellaneous Notes Images from the original note were not included. Mailed patient her lab tests she gets elsewere and scheudled appt for her AbelelerZion MD P [facility] Nurse [place]; Amanda Hammonds See patient back or televisit 4 months with labs documented in this encounter [facility] 03-24-2023 History of Present illness Narrative AMBULATORY TELEPHONE VISIT Call made on 03/24/23 Katalina Hutchins has consented to this telephone encounter. Persons Present: patient Chief Complaint/Reason: Thyroid, papillary classic variant bilateral, multifocal on the right with lymph node involvement, stage I [id number], status post total thyroidectomy. Patient received I-131 [...] right with lymph node involvement, stage I [id number], status post total thyroidectomy. Plan: TSH improved, a little higher than ideal however given T4 elevation recommend maintaining current Synthroid dose. Patient without any clinical issues related to this. Plan to recheck labs in 4 months. Total Time Spent: 6 minutes Zion Pringle MD documented in this encounter [facility] 11-18-2022 Miscellaneous Notes Call placed to pt due to not having labs prior to phone visit with Dr Pringle. LM requesting she CB to reschedule after she Is able to have labs. Argenis Reynolds RN documented in this encounter [facility] 11-18-2022 History of Present illness Narrative AMBULATORY TELEPHONE VISIT Katalina Hutchins has consented to this telephone encounter. Persons Present: patient Chief Complaint/Reason: Thyroid, papillary classic variant bilateral, multifocal on the right with lymph node involvement, stage I [id number], status post total thyroidectomy. Patient received I-131 [...] right with lymph node involvement, stage I [id number], status post total thyroidectomy. Plan: TSH improved, still high. Recommend maintaining Synthroid 200 mcg daily. Recheck in 3-4 months. Total Time Spent: 4 minutes Zion Pringle MD Call made on 11/23/22 documented in this encounter [facility] 09-09-2022 History of Present illness Narrative AMBULATORY TELEPHONE VISIT Katalina Hutchins has consented to this telephone encounter. Persons Present: patient Chief Complaint/Reason: Thyroid, papillary classic variant bilateral, multifocal on the right with lymph node involvement, stage I [id number], status post total thyroidectomy. Patient received I-131 [...] right with lymph node involvement, stage I [id number], status post total thyroidectomy. Plan: TSH needs more suppression. Recommend increasing Synthroid to 200 mcg daily. Recheck in 6 to 8 weeks. Encourage patient to call should she feel she is not tolerating this dose. Total Time Spent: 6 minutes Zion Pringle MD documented in this encounter [facility] 09-08-2022 Miscellaneous Notes Lab orders faxed to [facility] per patient request. documented in this encounter [facility] 06-10-2022 History of Present illness Narrative AMBULATORY TELEPHONE VISIT Katalina Hutchins has consented to this telephone encounter. Persons Present: patient Chief Complaint/Reason: Thyroid, papillary classic variant bilateral, multifocal on the right with lymph node involvement, stage I [id number], status post total thyroidectomy. Patient received I-131 [...] right with lymph node involvement, stage I [id number], status post total thyroidectomy. Plan: Labs okay with the exception of TSH. Patient states that she had ran out of her prescription will be for so this is not reliable. Recommend continue the current dose and recheck in 3 months. Otherwise patient is doing well. Thyroglobulin remains undetectable. Total Time Spent: 7 minutes Zion Pringle MD documented in this encounter [facility] 06-02-2022 History of Present illness Narrative AMBULATORY TELEPHONE VISIT Left message. documented in this encounter [facility] 04-16-2022 Miscellaneous Notes Levothyroxine refill request received from [facility] pharmacy via fax. Order pending your approval. Dr. Victoria will you please sign this pended script in Dr. Pringle's absence as patient is out of medication. [...] follow up the end of May. Dr. Pringle ok to keep follow up phone visit as scheduled? Kaitlynn Carreon LPN documented in this encounter [facility] 02-04-2022 History of Present illness Narrative AMBULATORY TELEPHONE VISIT Persons Present: Did not get a hold of patient.(error) I did get a hold of pt by phone. Chief Complaint/Reason: Thyroid, papillary classic variant bilateral, multifocal on the right with lymph node involvement, stage I [id number], status post total thyroidectomy. Patient received I-131 [...] right with lymph node involvement, stage I [id number], status post total thyroidectomy. Plan: Given mixed results with T4 T3 and TSH plan to hold current dose. Recheck 2 to 3 months. Total Time Spent:6 minutes Zion Pringle MD documented in this encounter [facility] 11-05-2021 History of Present illness Narrative AMBULATORY TELEPHONE VISIT Persons Present: Did not get a hold of patient. Chief Complaint/Reason: Thyroid, papillary classic variant bilateral, multifocal on the right with lymph node involvement, stage I [id number], status post total thyroidectomy. Patient received I-131 [...] right with lymph node involvement, stage I [id number], status post total thyroidectomy. Plan: TSH level much improved however still little higher than I would like however given her elevated T4 level plan to keep patient at her current dose and recheck in 2 to 3 months. Total Time Spent:6 minutes Zion Pringle MD documented in this encounter [facility] 10-16-2021 History of Present illness Narrative Unless she has immediate concerns or questions okay to push out 2 months AMBULATORY TELEPHONE VISIT Persons Present: Did not get a hold of patient. Chief Complaint/Reason: Thyroid, papillary classic variant bilateral, multifocal on the right with lymph node involvement, stage I [id number], status post total thyroidectomy. Patient received I-131 ablative therapy, 75.9 mCi on 07/09/2020 HPI: left message for pt to call back Data Reviewed: Most recent labs Ref. Range 05/29/2020 11:02 09/11/2020 15:07 11/18/2020 02/10/2021 04/08/21 06/17/20214/22 T4 Latest Ref Range: 5.5 - 10.2 [...] right with lymph node involvement, stage I [id number], status post total thyroidectomy. Plan: TSH level much improved however still little higher than I would like however given her elevated T4 level plan to keep patient at her current dose and recheck in 2 to 3 months. Total Time Spent: 0 minutes Zion Pringle MD documented in this encounter [facility] Evaluation note Diagnosis Thyroid cancer (HCC)- Primary Malignant neoplasm of thyroid gland [facility] (HCC)- Primary Malignant neoplasm of [facility] gland [facility] (H[facility])- Primary Malignant neoplasm of thyroid gland [facility] Thyroid cancer (HCC)- Primary Malignant neoplasm of thyroid gland [facility] Thyroid cancer (HCC)- Primary Malignant neoplasm of thyroid gland [facility] 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 Thyroid cancer (HCC) Malignant neoplasm of thyroid gland [facility] Diagnosis History of thyroid cancer- Primary Personal history of malignant neoplasm of thyroid [facility] Diagnosis Acute non-recurrent sinusitis of other sinus- [facility] Type 2 diabetes mellitus 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, unspecified whether rat exterminator insulin use ([facility])- Primary Insulin long-term use ([facility]) Encounter for long-term (current) use of insulin Hyperlipemia, mixed ([facility]) Mixed hyperlipidemia Vitamin D deficiency Encounter for dietary consultation Class 3 severe obesity with serious comorbidity and body mass index (BMI) of 50.0 to 59.9 in adult, unspecified obesity type ([facility]) documented in this encounter [facility]* Diagnosis History of thyroid cancer- Primary Personal history of malignant neoplasm of thyroid [facility] Diagnosis History of thyroid cancer- Primary Personal history of malignant neoplasm of thyroid [facility] Diagnosis Essential hypertension ([facility])- Primary Unspecified essential hypertension BMI 45.0-49.9, adult ([facility]) Uncontrolled type 2 diabetes mellitus 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, with long-term current use of insulin ([facility]) Anxiety and depression ([facility]) Essential hypertension ([facility])- Primary Unspecified essential hypertension Bilateral lower extremity edema Vitamin D deficiency Mixed hyperlipidemia ([facility]) Mixed hyperlipidemia History of rectal polyps Uncontrolled type 2 diabetes mellitus 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, with long-term current use of insulin ([facility]) Anxiety and depression ([facility]) Allergic rhinitis, unspecified seasonality, unspecified trigger Essential hypertension ([facility])- Primary Unspecified essential hypertension Malignant neoplasm of thyroid gland ([facility]/HCC) Malignant neoplasm of thyroid gland Pain of left hip Lumbar back pain with radiculopathy affecting left lower extremity Bilateral lower extremity edema Uncontrolled type 2 diabetes mellitus 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, with long-term current use of insulin ([facility]) Class 3 severe obesity due to excess calories with serious comorbidity and body mass index (BMI) of 50.0 to 59.9 in adult ([facility]) Essential hypertension ([facility]/HCC)- Primary Unspecified essential hypertension KARINE (obstructive sleep apnea) Obstructive sleep apnea (adult) (pediatric) Arthritis of knee, right Bilateral lower extremity edema Class 3 severe obesity due to excess calories with serious comorbidity and body mass index (BMI) of 50.0 to 59.9 in adult ([facility]) Malignant neoplasm of thyroid gland (CMS/HCC) Malignant neoplasm of thyroid gland Papillary thyroid carcinoma ([facility]) Anxiety and depression ([facility]) Hidradenitis suppurativa of multiple sites Yeast infection of the vagina- Primary Candidiasis of vulva and vagina documented in this encounter [facility]* Diagnosis Essential hypertension (CMS/HCC)- Primary Unspecified essential hypertension BMI 45.0-49.9, adult ([facility]) Uncontrolled type 2 diabetes mellitus 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, with long-term current use of insulin (CMS/[facility]) Anxiety and depression (CMS/HCC) Essential hypertension (CMS/HCC)- Primary Unspecified essential hypertension Bilateral lower extremity edema Vitamin D deficiency Mixed hyperlipidemia (CMS/HCC) Mixed hyperlipidemia History of rectal polyps Uncontrolled type 2 diabetes mellitus 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, with long-term current use of insulin (CMS/[facility]) Anxiety and depression (CMS/[facility]) Allergic rhinitis, unspecified seasonality, unspecified trigger Essential hypertension (CMS/HCC)- Primary Unspecified essential hypertension Malignant neoplasm of thyroid gland (CMS/HCC) Malignant neoplasm of thyroid gland Pain of left hip Lumbar back pain with radiculopathy affecting left lower extremity Bilateral lower extremity edema Uncontrolled type 2 diabetes mellitus 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, with long-term current use of insulin (CMS/[facility]) Class 3 severe obesity due to excess calories with serious comorbidity and body mass index (BMI) of 50.0 to 59.9 in adult (CMS/HCC) Essential hypertension ([facility]/HCC)- Primary Unspecified essential hypertension KARINE (obstructive sleep apnea) Obstructive sleep apnea (adult) (pediatric) Arthritis of knee, right Bilateral lower extremity edema Class 3 severe obesity due to excess calories with serious comorbidity and body mass index (BMI) of 50.0 to 59.9 in adult (CMS/HCC) Malignant neoplasm of thyroid gland (CMS/HCC) Malignant neoplasm of thyroid gland Papillary thyroid carcinoma (CMS/[facility]) Anxiety and depression (CMS/[facility]) Hidradenitis suppurativa of multiple sites Hidradenitis suppurativa of multiple sites- Primary [facility]* Diagnosis Essential hypertension (CMS/HCC)- Primary Unspecified essential hypertension BMI 45.0-49.9, adult ([facility]) Uncontrolled type 2 diabetes mellitus 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, with long-term current use of insulin (CMS/[facility]) Anxiety and depression (CMS/HCC) Essential hypertension (CMS/HCC)- Primary Unspecified essential hypertension Bilateral lower extremity edema Vitamin D deficiency Mixed hyperlipidemia (CMS/[facility]) Mixed hyperlipidemia History of rectal polyps Uncontrolled type 2 diabetes mellitus 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, with long-term current use of insulin (CMS/[facility]) Anxiety and depression (CMS/[facility]) Allergic rhinitis, unspecified seasonality, unspecified trigger Essential hypertension (CMS/HCC)- Primary Unspecified essential hypertension Malignant neoplasm of thyroid gland (CMS/HCC) Malignant neoplasm of thyroid gland Pain of left hip Lumbar back pain with radiculopathy affecting left lower extremity Bilateral lower extremity edema Uncontrolled type 2 diabetes mellitus 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, with long-term current use of insulin (CMS/HCC) Class 3 severe obesity due to excess calories with serious comorbidity and body mass index (BMI) of 50.0 to 59.9 in adult (CMS/HCC) Essential hypertension (CMS/HCC)- Primary Unspecified essential hypertension KARINE (obstructive sleep apnea) Obstructive sleep apnea (adult) (pediatric) Arthritis of knee, right Bilateral lower extremity edema Class 3 severe obesity due to excess calories with serious comorbidity and body mass index (BMI) of 50.0 to 59.9 in adult (CMS/HCC) Malignant neoplasm of thyroid gland (CMS/HCC) Malignant neoplasm of thyroid gland Papillary thyroid carcinoma (CMS/HCC) Anxiety and depression (CMS/[facility]) Hidradenitis suppurativa of multiple sites Mixed hyperlipidemia (CMS/[facility]) Mixed hyperlipidemia documented in this encounter [facility]* Diagnosis Essential hypertension (CMS/HCC)- Primary Unspecified essential hypertension BMI 45.0-49.9, adult ([facility]) Uncontrolled type 2 diabetes mellitus 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, with long-term current use of insulin (CMS/[facility]) Anxiety and depression (CMS/HCC) Essential hypertension (CMS/HCC)- Primary Unspecified essential hypertension Bilateral lower extremity edema Vitamin D deficiency Mixed hyperlipidemia (CMS/HCC) Mixed hyperlipidemia History of rectal polyps Uncontrolled type 2 diabetes mellitus 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, with long-term current use of insulin (CMS/[facility]) Anxiety and depression (CMS/HCC) Allergic rhinitis, unspecified seasonality, unspecified trigger Essential hypertension (CMS/HCC)- Primary Unspecified essential hypertension Malignant neoplasm of thyroid gland (CMS/HCC) Malignant neoplasm of thyroid gland Pain of left hip Lumbar back pain with radiculopathy affecting left lower extremity Bilateral lower extremity edema Uncontrolled type 2 diabetes mellitus 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, with long-term current use of insulin (CMS/HCC) Class 3 severe obesity due to excess calories with serious comorbidity and body mass index (BMI) of 50.0 to 59.9 in adult (CMS/HCC) Essential hypertension (CMS/HCC)- Primary Unspecified essential hypertension KARINE (obstructive sleep apnea) Obstructive sleep apnea (adult) (pediatric) Arthritis of knee, right Bilateral lower extremity edema Class 3 severe obesity due to excess calories with serious comorbidity and body mass index (BMI) of 50.0 to 59.9 in adult ([facility]) Malignant neoplasm of thyroid gland ([facility]) Malignant neoplasm of thyroid gland Papillary thyroid carcinoma ([facility]) Anxiety and depression ([facility]) Hidradenitis suppurativa of multiple sites Essential hypertension ([facility])- Primary Unspecified essential hypertension KARINE (obstructive sleep apnea) Obstructive sleep apnea (adult) (pediatric) Bilateral lower extremity edema Vitamin D deficiency Uncontrolled type 2 diabetes mellitus 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, with long-term current use of insulin ([facility]) Class 3 severe obesity due to excess calories with serious comorbidity and body mass index (BMI) of 50.0 to 59.9 in adult ([facility]) Anxiety and depression ([facility]) Allergic rhinitis, unspecified seasonality, unspecified trigger Encounter for screening mammogram for malignant neoplasm of breast Left foot pain Pain in soft tissues of limb Other chronic pain documented in this encounter [facility]* Diagnosis Essential hypertension ([facility])- Primary Unspecified essential hypertension BMI 45.0-49.9, adult ([facility]) Uncontrolled type 2 diabetes mellitus 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, with long-term current use of insulin ([facility]) Anxiety and depression ([facility]) Essential hypertension ([facility])- Primary Unspecified essential hypertension Bilateral lower extremity edema Vitamin D deficiency Mixed hyperlipidemia ([facility]) Mixed hyperlipidemia History of rectal polyps Uncontrolled type 2 diabetes mellitus 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, with long-term current use of insulin ([facility]) Anxiety and depression ([facility]) Allergic rhinitis, unspecified seasonality, unspecified trigger Essential hypertension ([facility])- Primary Unspecified essential hypertension Malignant neoplasm of thyroid gland ([facility]) Malignant neoplasm of thyroid gland Pain of left hip Lumbar back pain with radiculopathy affecting left lower extremity Bilateral lower extremity edema Uncontrolled type 2 diabetes mellitus 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, with long-term current use of insulin ([facility]) Class 3 severe obesity due to excess calories with serious comorbidity and body mass index (BMI) of 50.0 to 59.9 in adult ([facility]) Essential hypertension ([facility])- Primary Unspecified essential hypertension KARINE (obstructive sleep apnea) Obstructive sleep apnea (adult) (pediatric) Arthritis of knee, right Bilateral lower extremity edema Class 3 severe obesity due to excess calories with serious comorbidity and body mass index (BMI) of 50.0 to 59.9 in adult (CMS/HCC) Malignant neoplasm of thyroid gland (CMS/HCC) Malignant neoplasm of thyroid gland Papillary thyroid carcinoma (CMS/HCC) Anxiety and depression (CMS/HCC) Hidradenitis suppurativa of multiple sites Essential hypertension (CMS/HCC)- Primary Unspecified essential hypertension KARINE (obstructive sleep apnea) Obstructive sleep apnea (adult) (pediatric) Bilateral lower extremity edema Vitamin D deficiency Uncontrolled type 2 diabetes mellitus 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, with long-term current use of insulin (CMS/HCC) Class 3 severe obesity due to excess calories with serious comorbidity and body mass index (BMI) of 50.0 to 59.9 in adult (CMS/HCC) Anxiety and depression (CMS/HCC) Allergic rhinitis, unspecified seasonality, unspecified trigger Encounter for screening mammogram for malignant neoplasm of breast Left foot pain Pain in soft tissues of limb Other chronic pain Chronic pain syndrome documented [facility]* Diagnosis Anxiety and depression (CMS/HCC) documented in [facility]* Diagnosis Essential hypertension (CMS/HCC)- Primary Unspecified essential hypertension KARINE (obstructive sleep apnea) Obstructive sleep apnea (adult) (pediatric) Arthritis of knee, right Bilateral lower extremity edema Class 3 severe obesity due to excess calories with serious comorbidity and body mass index (BMI) of 50.0 to 59.9 in adult (CMS/HCC) Malignant neoplasm of thyroid gland (CMS/HCC) Malignant neoplasm of thyroid gland Papillary thyroid carcinoma (CMS/HCC) Anxiety and depression (CMS/HCC) Hidradenitis suppurativa of multiple sites documented [facility]* Diagnosis Vitamin D deficiency- Primary documented in [facility]* Diagnosis Essential hypertension (CMS/HCC) Unspecified essential hypertension documented in [facility]* Diagnosis Type 2 diabetes mellitus 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, with long-term current use of insulin (CMS/[facility]) documented in this encounter [facility]* Diagnosis Essential hypertension (CMS/HCC)- Primary Unspecified essential hypertension BMI 45.0-49.9, adult ([facility]) Uncontrolled type 2 diabetes mellitus 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, with long-term current use of insulin (CMS/HCC) Anxiety and depression (CMS/HCC) Essential hypertension (CMS/HCC)- Primary Unspecified essential hypertension Bilateral lower extremity edema Vitamin D deficiency Mixed hyperlipidemia (CMS/HCC) Mixed hyperlipidemia History of rectal polyps Uncontrolled type 2 diabetes mellitus 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, with long-term current use of insulin (CMS/HCC) Anxiety and depression (CMS/HCC) Allergic rhinitis, unspecified seasonality, unspecified trigger Essential hypertension (CMS/HCC)- Primary Unspecified essential hypertension Malignant neoplasm of thyroid gland (CMS/HCC) Malignant neoplasm of thyroid gland Pain of left hip Lumbar back pain with radiculopathy affecting left lower extremity Bilateral lower extremity edema Uncontrolled type 2 diabetes mellitus 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, with long-term current use of insulin (CMS/HCC) Class 3 severe obesity due to excess calories with serious comorbidity and body mass index (BMI) of 50.0 to 59.9 in adult (CMS/[facility]) Essential hypertension (CMS/HCC)- Primary Unspecified essential hypertension KARINE (obstructive sleep apnea) Obstructive sleep apnea (adult) (pediatric) Arthritis of knee, right Bilateral lower extremity edema Class 3 severe obesity due to excess calories with serious comorbidity and body mass index (BMI) of 50.0 to 59.9 in adult (CMS/HCC) Malignant neoplasm of thyroid gland (CMS/HCC) Malignant neoplasm of thyroid gland Papillary thyroid carcinoma (CMS/HCC) Anxiety and depression (CMS/[facility]) Hidradenitis suppurativa of multiple sites Essential hypertension (CMS/HCC)- Primary Unspecified essential hypertension KARINE (obstructive sleep apnea) Obstructive sleep apnea (adult) (pediatric) Bilateral lower extremity edema Vitamin D deficiency Uncontrolled type 2 diabetes mellitus 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, with long-term current use of insulin (CMS/[facility]) Class 3 severe obesity due to excess calories with serious comorbidity and body mass index (BMI) of 50.0 to 59.9 in adult (CMS/[facility]) Anxiety and depression (CMS/HCC) Allergic rhinitis, unspecified seasonality, unspecified trigger Encounter for screening mammogram for malignant neoplasm of breast Left foot pain Pain in soft tissues of limb Other chronic pain Type 2 diabetes mellitus 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, with long-term current use of insulin (CMS/[facility])- Primary Insulin long-term use (CMS/[facility]) Encounter for long-term (current) use of insulin Hyperlipemia, mixed (CMS/[facility]) Mixed hyperlipidemia Vitamin D deficiency Encounter for dietary consultation Class 3 severe obesity with serious comorbidity and body mass index (BMI) of 50.0 to 59.9 in adult, unspecified obesity type (CMS/HCC) documented in this encounter [facility]* Diagnosis Essential hypertension (CMS/HCC)- Primary Unspecified essential hypertension BMI 45.0-49.9, adult (CMS/[facility]) Uncontrolled type 2 diabetes mellitus 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, with long-term current use of insulin (CMS/HCC) Anxiety and depression (CMS/HCC) Essential hypertension (CMS/HCC)- Primary Unspecified essential hypertension Bilateral lower extremity edema Vitamin D deficiency Mixed hyperlipidemia (CMS/HCC) Mixed hyperlipidemia History of rectal polyps Uncontrolled type 2 diabetes mellitus 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, with long-term current use of insulin (CMS/HCC) Anxiety and depression (CMS/HCC) Allergic rhinitis, unspecified seasonality, unspecified trigger Essential hypertension (CMS/HCC)- Primary Unspecified essential hypertension Malignant neoplasm of thyroid gland (CMS/HCC) Malignant neoplasm of thyroid gland Pain of left hip Lumbar back pain with radiculopathy affecting left lower extremity Bilateral lower extremity edema Uncontrolled type 2 diabetes mellitus 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, with long-term current use of insulin (CMS/[facility]) Class 3 severe obesity due to excess calories with serious comorbidity and body mass index (BMI) of 50.0 to 59.9 in adult (CMS/HCC) Essential hypertension (CMS/HCC)- Primary Unspecified essential hypertension KARINE (obstructive sleep apnea) Obstructive sleep apnea (adult) (pediatric) Arthritis of knee, right Bilateral lower extremity edema Class 3 severe obesity due to excess calories with serious comorbidity and body mass index (BMI) of 50.0 to 59.9 in adult (CMS/HCC) Malignant neoplasm of thyroid gland (CMS/HCC) Malignant neoplasm of thyroid gland Papillary thyroid carcinoma (CMS/HCC) Anxiety and depression (CMS/HCC) Hidradenitis suppurativa of multiple sites Essential hypertension (CMS/HCC)- Primary Unspecified essential hypertension KARINE (obstructive sleep apnea) Obstructive sleep apnea (adult) (pediatric) Bilateral lower extremity edema Vitamin D deficiency Uncontrolled type 2 diabetes mellitus 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, with long-term current use of insulin ([facility]) Class 3 severe obesity due to excess calories with serious comorbidity and body mass index (BMI) of 50.0 to 59.9 in adult (CMS/HCC) Anxiety and depression (CMS/HCC) Allergic rhinitis, unspecified seasonality, unspecified trigger Encounter for screening mammogram for malignant neoplasm of breast Left foot pain Pain in soft tissues of limb Other chronic pain Essential hypertension (CMS/HCC) Unspecified essential hypertension Bilateral lower extremity edema [facility] [facility] Diagnosis Encounter for colonoscopy in patient with family history of colon cancer- Primary Family history of colon cancer Family history of malignant neoplasm of gastrointestinal tract [facility] History of thyroid cancer- Primary Personal history of malignant neoplasm of thyroid [facility] Essential hypertension (CMS/HCC)- Primary Unspecified essential hypertension BMI 45.0-49.9, adult (CMS/HCC) Uncontrolled type 2 diabetes mellitus 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, with long-term current use of insulin (CMS/HCC) Anxiety and depression (CMS/HCC) Essential hypertension (CMS/HCC)- Primary Unspecified essential hypertension Bilateral lower extremity edema Vitamin D deficiency Mixed hyperlipidemia (CMS/HCC) Mixed hyperlipidemia History of rectal polyps Uncontrolled type 2 diabetes mellitus 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, with long-term current use of insulin (CMS/HCC) Anxiety and depression (CMS/HCC) Allergic rhinitis, unspecified seasonality, unspecified trigger Essential hypertension (CMS/HCC)- Primary Unspecified essential hypertension Malignant neoplasm of thyroid gland (CMS/HCC) Malignant neoplasm of thyroid gland Pain of left hip Lumbar back pain with radiculopathy affecting left lower extremity Bilateral lower extremity edema Uncontrolled type 2 diabetes mellitus 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, with long-term current use of insulin (CMS/HCC) Class 3 severe obesity due to excess calories with serious comorbidity and body mass index (BMI) of 50.0 to 59.9 in adult (CMS/HCC) Essential hypertension (CMS/HCC)- Primary Unspecified essential hypertension KARINE (obstructive sleep apnea) Obstructive sleep apnea (adult) (pediatric) Arthritis of knee, right Bilateral lower extremity edema Class 3 severe obesity due to excess calories with serious comorbidity and body mass index (BMI) of 50.0 to 59.9 in adult (CMS/HCC) Malignant neoplasm of thyroid gland (CMS/HCC) Malignant neoplasm of thyroid gland Papillary thyroid carcinoma (CMS/HCC) Anxiety and depression (CMS/HCC) Hidradenitis suppurativa of multiple sites Essential hypertension (CMS/HCC)- Primary Unspecified essential hypertension KARINE (obstructive sleep apnea) Obstructive sleep apnea (adult) (pediatric) Bilateral lower extremity edema Vitamin D deficiency Uncontrolled type 2 diabetes mellitus 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, with long-term current use of insulin (CMS/HCC) Class 3 severe obesity due to excess calories with serious comorbidity and body mass index (BMI) of 50.0 to 59.9 in adult (CMS/HCC) Anxiety and depression (CMS/HCC) Allergic rhinitis, unspecified seasonality, unspecified trigger Encounter for screening mammogram for malignant neoplasm of breast Left foot pain Pain in soft tissues of limb Other chronic pain Anxiety and depression (CMS/HCC)- Primary KARINE (obstructive sleep apnea) Obstructive sleep apnea (adult) (pediatric) Essential hypertension (CMS/HCC) Unspecified essential hypertension Bilateral lower extremity edema Class 3 severe obesity due to excess calories with serious comorbidity and body mass index (BMI) of 50.0 to 59.9 in adult (CMS/HCC) Papillary thyroid carcinoma (CMS/HCC) Uncontrolled type 2 diabetes mellitus 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, with long-term current use of insulin (CMS/[facility]) Mixed hyperlipidemia (CMS/[facility]) Mixed hyperlipidemia documented in this encounter [facility] HealthcareEvaluation [facility]* Diagnosis Essential hypertension (CMS/HCC)- Primary Unspecified essential hypertension BMI 45.0-49.9, adult ([facility]) Uncontrolled type 2 diabetes mellitus 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, with long-term current use of insulin (CMS/[facility]) Anxiety and depression (CMS/HCC) Essential hypertension (CMS/HCC)- Primary Unspecified essential hypertension Bilateral lower extremity edema Vitamin D deficiency Mixed hyperlipidemia (CMS/HCC) Mixed hyperlipidemia History of rectal polyps Uncontrolled type 2 diabetes mellitus 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, with long-term current use of insulin (CMS/HCC) Anxiety and depression (CMS/HCC) Allergic rhinitis, unspecified seasonality, unspecified trigger Essential hypertension (CMS/HCC)- Primary Unspecified essential hypertension Malignant neoplasm of thyroid gland (CMS/HCC) Malignant neoplasm of thyroid gland Pain of left hip Lumbar back pain with radiculopathy affecting left lower extremity Bilateral lower extremity edema Uncontrolled type 2 diabetes mellitus 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, with long-term current use of insulin (CMS/HCC) Class 3 severe obesity due to excess calories with serious comorbidity and body mass index (BMI) of 50.0 to 59.9 in adult Essential hypertension (CMS/HCC)- Primary Unspecified essential hypertension KARINE (obstructive sleep apnea) Obstructive sleep apnea (adult) (pediatric) Arthritis of knee, right Bilateral lower extremity edema Class 3 severe obesity due to excess calories with serious comorbidity and body mass index (BMI) of 50.0 to 59.9 in adult Malignant neoplasm of thyroid gland (CMS/HCC) Malignant neoplasm of thyroid gland Papillary thyroid carcinoma (CMS/HCC) Anxiety and depression (CMS/HCC) Hidradenitis suppurativa of multiple sites Essential hypertension (CMS/HCC)- Primary Unspecified essential hypertension KARINE (obstructive sleep apnea) Obstructive sleep apnea (adult) (pediatric) Bilateral lower extremity edema Vitamin D deficiency Uncontrolled type 2 diabetes mellitus 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, with long-term current use of insulin (CMS/HCC) Class 3 severe obesity due to excess calories with serious comorbidity and body mass index (BMI) of 50.0 to 59.9 in adult Anxiety and depression (CMS/HCC) Allergic rhinitis, unspecified seasonality, unspecified trigger Encounter for screening mammogram for malignant neoplasm of breast Left foot pain Pain in soft tissues of limb Other chronic pain Anxiety and depression (CMS/HCC)- Primary KARINE (obstructive sleep apnea) Obstructive sleep apnea (adult) (pediatric) Essential hypertension (CMS/HCC) Unspecified essential hypertension Bilateral lower extremity edema Class 3 severe obesity due to excess calories with serious comorbidity and body mass index (BMI) of 50.0 to 59.9 in adult Papillary thyroid carcinoma (CMS/HCC) Uncontrolled type 2 diabetes mellitus 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, with long-term current use of insulin (CMS/HCC) Mixed hyperlipidemia (CMS/HCC) Mixed hyperlipidemia Pap smear for cervical cancer screening Screening for malignant neoplasm of the cervix Essential hypertension (CMS/HCC) Unspecified essential hypertension documented in this encounter [facility]* Diagnosis Essential hypertension (CMS/HCC)- Primary Unspecified essential hypertension BMI 45.0-49.9, adult (CMS/HCC) Uncontrolled type 2 diabetes mellitus 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, with long-term current use of insulin (CMS/HCC) Anxiety and depression (CMS/HCC) Essential hypertension (CMS/HCC)- Primary Unspecified essential hypertension Bilateral lower extremity edema Vitamin D deficiency Mixed hyperlipidemia (CMS/HCC) Mixed hyperlipidemia History of rectal polyps Uncontrolled type 2 diabetes mellitus 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, with long-term current use of insulin (CMS/HCC) Anxiety and depression (CMS/HCC) Allergic rhinitis, unspecified seasonality, unspecified trigger Essential hypertension (CMS/HCC)- Primary Unspecified essential hypertension Malignant neoplasm of thyroid gland (CMS/HCC) Malignant neoplasm of thyroid gland Pain of left hip Lumbar back pain with radiculopathy affecting left lower extremity Bilateral lower extremity edema Uncontrolled type 2 diabetes mellitus 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, with long-term current use of insulin (CMS/HCC) Class 3 severe obesity due to excess calories with serious comorbidity and body mass index (BMI) of 50.0 to 59.9 in adult Essential hypertension (CMS/HCC)- Primary Unspecified essential hypertension KARINE (obstructive sleep apnea) Obstructive sleep apnea (adult) (pediatric) Arthritis of knee, right Bilateral lower extremity edema Class 3 severe obesity due to excess calories with serious comorbidity and body mass index (BMI) of 50.0 to 59.9 in adult Malignant neoplasm of thyroid gland (CMS/HCC) Malignant neoplasm of thyroid gland Papillary thyroid carcinoma (CMS/HCC) Anxiety and depression (CMS/HCC) Hidradenitis suppurativa of multiple sites Essential hypertension (CMS/HCC)- Primary Unspecified essential hypertension KARINE (obstructive sleep apnea) Obstructive sleep apnea (adult) (pediatric) Bilateral lower extremity edema Vitamin D deficiency Uncontrolled type 2 diabetes mellitus 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, with long-term current use of insulin (CMS/[facility]) Class 3 severe obesity due to excess calories with serious comorbidity and body mass index (BMI) of 50.0 to 59.9 in adult Anxiety and depression (CMS/HCC) Allergic rhinitis, unspecified seasonality, unspecified trigger Encounter for screening mammogram for malignant neoplasm of breast Left foot pain Pain in soft tissues of limb Other chronic pain Anxiety and depression (CMS/HCC)- Primary KARINE (obstructive sleep apnea) Obstructive sleep apnea (adult) (pediatric) Essential hypertension (CMS/HCC) Unspecified essential hypertension Bilateral lower extremity edema Class 3 severe obesity due to excess calories with serious comorbidity and body mass index (BMI) of 50.0 to 59.9 in adult Papillary thyroid carcinoma (CMS/HCC) Uncontrolled type 2 diabetes mellitus 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, with long-term current use of insulin (CMS/[facility]) Mixed hyperlipidemia (CMS/[facility]) Mixed hyperlipidemia Pap smear for cervical cancer screening Screening for malignant neoplasm of the cervix Type 2 diabetes mellitus 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, unspecified whether rat exterminator insulin use (CMS/[facility]) documented in this encounter [facility]* Diagnosis Essential hypertension (CMS/HCC)- Primary Unspecified essential hypertension BMI 45.0-49.9, adult (CMS/[facility]) Uncontrolled type 2 diabetes mellitus 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, with long-term current use of insulin (CMS/HCC) Anxiety and depression (CMS/HCC) Essential hypertension (CMS/HCC)- Primary Unspecified essential hypertension Bilateral lower extremity edema Vitamin D deficiency Mixed hyperlipidemia (CMS/HCC) Mixed hyperlipidemia History of rectal polyps Uncontrolled type 2 diabetes mellitus 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, with long-term current use of insulin (CMS/HCC) Anxiety and depression (CMS/HCC) Allergic rhinitis, unspecified seasonality, unspecified trigger Essential hypertension (CMS/HCC)- Primary Unspecified essential hypertension Malignant neoplasm of thyroid gland (CMS/HCC) Malignant neoplasm of thyroid gland Pain of left hip Lumbar back pain with radiculopathy affecting left lower extremity Bilateral lower extremity edema Uncontrolled type 2 diabetes mellitus 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, with long-term current use of insulin (CMS/HCC) Class 3 severe obesity due to excess calories with serious comorbidity and body mass index (BMI) of 50.0 to 59.9 in adult Essential hypertension (CMS/HCC)- Primary Unspecified essential hypertension KARINE (obstructive sleep apnea) Obstructive sleep apnea (adult) (pediatric) Arthritis of knee, right Bilateral lower extremity edema Class 3 severe obesity due to excess calories with serious comorbidity and body mass index (BMI) of 50.0 to 59.9 in adult Malignant neoplasm of thyroid gland (CMS/HCC) Malignant neoplasm of thyroid gland Papillary thyroid carcinoma (CMS/HCC) Anxiety and depression (CMS/[facility]) Hidradenitis suppurativa of multiple sites Essential hypertension (CMS/HCC)- Primary Unspecified essential hypertension KARINE (obstructive sleep apnea) Obstructive sleep apnea (adult) (pediatric) Bilateral lower extremity edema Vitamin D deficiency Uncontrolled type 2 diabetes mellitus 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, with long-term current use of insulin (CMS/[facility]) Class 3 severe obesity due to excess calories with serious comorbidity and body mass index (BMI) of 50.0 to 59.9 in adult Anxiety and depression (CMS/HCC) Allergic rhinitis, unspecified seasonality, unspecified trigger Encounter for screening mammogram for malignant neoplasm of breast Left foot pain Pain in soft tissues of limb Other chronic pain Anxiety and depression (CMS/[facility])- Primary KARINE (obstructive sleep apnea) Obstructive sleep apnea (adult) (pediatric) Essential hypertension (CMS/HCC) Unspecified essential hypertension Bilateral lower extremity edema Class 3 severe obesity due to excess calories with serious comorbidity and body mass index (BMI) of 50.0 to 59.9 in adult Papillary thyroid carcinoma (CMS/HCC) Uncontrolled type 2 diabetes mellitus 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, with long-term current use of insulin (CMS/HCC) Mixed hyperlipidemia (CMS/HCC) Mixed hyperlipidemia Pap smear for cervical cancer screening Screening for malignant neoplasm of the cervix Uncontrolled type 2 diabetes mellitus 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, with long-term current use of insulin (CMS/[facility])- Primary documented in this encounter [facility]* Diagnosis Essential hypertension (CMS/[facility])- Primary Unspecified essential hypertension BMI 45.0-49.9, adult ([facility]) Uncontrolled type 2 diabetes mellitus 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, with long-term current use of insulin ([facility]) Anxiety and depression ([facility]) Essential hypertension ([facility])- Primary Unspecified essential hypertension Bilateral lower extremity edema Vitamin D deficiency Mixed hyperlipidemia ([facility]) Mixed hyperlipidemia History of rectal polyps Uncontrolled type 2 diabetes mellitus 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, with long-term current use of insulin ([facility]) Anxiety and depression ([facility]) Allergic rhinitis, unspecified seasonality, unspecified trigger Essential hypertension ([facility])- Primary Unspecified essential hypertension Malignant neoplasm of thyroid gland ([facility]) Malignant neoplasm of thyroid gland Pain of left hip Lumbar back pain with radiculopathy affecting left lower extremity Bilateral lower extremity edema Uncontrolled type 2 diabetes mellitus 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, with long-term current use of insulin ([facility]) Class 3 severe obesity due to excess calories with serious comorbidity and body mass index (BMI) of 50.0 to 59.9 in adult Essential hypertension ([facility])- Primary Unspecified essential hypertension KARINE (obstructive sleep apnea) Obstructive sleep apnea (adult) (pediatric) Arthritis of knee, right Bilateral lower extremity edema Class 3 severe obesity due to excess calories with serious comorbidity and body mass index (BMI) of 50.0 to 59.9 in adult Malignant neoplasm of thyroid gland ([facility]) Malignant neoplasm of thyroid gland Papillary thyroid carcinoma ([facility]) Anxiety and depression ([facility]) Hidradenitis suppurativa of multiple sites Essential hypertension ([facility])- Primary Unspecified essential hypertension KARINE (obstructive sleep apnea) Obstructive sleep apnea (adult) (pediatric) Bilateral lower extremity edema Vitamin D deficiency Uncontrolled type 2 diabetes mellitus 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, with long-term current use of insulin ([facility]) Class 3 severe obesity due to excess calories with serious comorbidity and body mass index (BMI) of 50.0 to 59.9 in adult Anxiety and depression ([facility]) Allergic rhinitis, unspecified seasonality, unspecified trigger Encounter for screening mammogram for malignant neoplasm of breast Left foot pain Pain in soft tissues of limb Other chronic pain Anxiety and depression ([facility])- Primary KARINE (obstructive sleep apnea) Obstructive sleep apnea (adult) (pediatric) Essential hypertension ([facility]/HCC) Unspecified essential hypertension Bilateral lower extremity edema Class 3 severe obesity due to excess calories with serious comorbidity and body mass index (BMI) of 50.0 to 59.9 in adult Papillary thyroid carcinoma (CMS/HCC) Uncontrolled type 2 diabetes mellitus 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, with long-term current use of insulin (CMS/[facility]) Mixed hyperlipidemia ([facility]) Mixed hyperlipidemia Pap smear for cervical cancer screening Screening for malignant neoplasm of the cervix Vitamin D deficiency, unspecified documented in this encounter [facility]* Diagnosis Essential hypertension ([facility])- Primary Unspecified essential hypertension BMI 45.0-49.9, adult ([facility]) Uncontrolled type 2 diabetes mellitus 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, with long-term current use of insulin ([facility]) Anxiety and depression ([facility]) Essential hypertension ([facility])- Primary Unspecified essential hypertension Bilateral lower extremity edema Vitamin D deficiency Mixed hyperlipidemia ([facility]) Mixed hyperlipidemia History of rectal polyps Uncontrolled type 2 diabetes mellitus 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, with long-term current use of insulin ([facility]) Anxiety and depression ([facility]) Allergic rhinitis, unspecified seasonality, unspecified trigger Essential hypertension ([facility])- Primary Unspecified essential hypertension Malignant neoplasm of thyroid gland (CMS/HCC) Malignant neoplasm of thyroid gland Pain of left hip Lumbar back pain with radiculopathy affecting left lower extremity Bilateral lower extremity edema Uncontrolled type 2 diabetes mellitus 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, with long-term current use of insulin ([facility]) Class 3 severe obesity due to excess calories with serious comorbidity and body mass index (BMI) of 50.0 to 59.9 in adult Essential hypertension ([facility]/HCC)- Primary Unspecified essential hypertension KARINE (obstructive sleep apnea) Obstructive sleep apnea (adult) (pediatric) Arthritis of knee, right Bilateral lower extremity edema Class 3 severe obesity due to excess calories with serious comorbidity and body mass index (BMI) of 50.0 to 59.9 in adult Malignant neoplasm of thyroid gland (CMS/HCC) Malignant neoplasm of thyroid gland Papillary thyroid carcinoma ([facility]/HCC) Anxiety and depression ([facility]) Hidradenitis suppurativa of multiple sites Essential hypertension ([facility])- Primary Unspecified essential hypertension KARINE (obstructive sleep apnea) Obstructive sleep apnea (adult) (pediatric) Bilateral lower extremity edema Vitamin D deficiency Uncontrolled type 2 diabetes mellitus 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, with long-term current use of insulin ([facility]) Class 3 severe obesity due to excess calories with serious comorbidity and body mass index (BMI) of 50.0 to 59.9 in adult Anxiety and depression (CMS/HCC) Allergic rhinitis, unspecified seasonality, unspecified trigger Encounter for screening mammogram for malignant neoplasm of breast Left foot pain Pain in soft tissues of limb Other chronic pain Anxiety and depression (CMS/HCC)- Primary KRAINE (obstructive sleep apnea) Obstructive sleep apnea (adult) (pediatric) Essential hypertension (CMS/HCC) Unspecified essential hypertension Bilateral lower extremity edema Class 3 severe obesity due to excess calories with serious comorbidity and body mass index (BMI) of 50.0 to 59.9 in adult Papillary thyroid carcinoma (CMS/HCC) Uncontrolled type 2 diabetes mellitus 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, with long-term current use of insulin (CMS/HCC) Mixed hyperlipidemia (CMS/HCC) Mixed hyperlipidemia Pap smear for cervical cancer screening Screening for malignant neoplasm of the cervix Mixed hyperlipidemia (CMS/HCC) Mixed hyperlipidemia documented in this encounter [facility] HealthcareEvaluation note* Diagnosis Essential hypertension (CMS/HCC)- Primary Unspecified essential hypertension BMI 45.0-49.9, adult (CMS/HCC) Uncontrolled type 2 diabetes mellitus 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, with long-term current use of insulin (CMS/HCC) Anxiety and depression (CMS/HCC) Essential hypertension (CMS/HCC)- Primary Unspecified essential hypertension Bilateral lower extremity edema Vitamin D deficiency Mixed hyperlipidemia (CMS/HCC) Mixed hyperlipidemia History of rectal polyps Uncontrolled type 2 diabetes mellitus 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, with long-term current use of insulin (CMS/HCC) Anxiety and depression (CMS/HCC) Allergic rhinitis, unspecified seasonality, unspecified trigger Essential hypertension (CMS/HCC)- Primary Unspecified essential hypertension Malignant neoplasm of thyroid gland (CMS/HCC) Malignant neoplasm of thyroid gland Pain of left hip Lumbar back pain with radiculopathy affecting left lower extremity Bilateral lower extremity edema Uncontrolled type 2 diabetes mellitus 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, with long-term current use of insulin (CMS/HCC) Class 3 severe obesity due to excess calories with serious comorbidity and body mass index (BMI) of 50.0 to 59.9 in adult Essential hypertension (CMS/HCC)- Primary Unspecified essential hypertension KARINE (obstructive sleep apnea) Obstructive sleep apnea (adult) (pediatric) Arthritis of knee, right Bilateral lower extremity edema Class 3 severe obesity due to excess calories with serious comorbidity and body mass index (BMI) of 50.0 to 59.9 in adult Malignant neoplasm of thyroid gland (CMS/HCC) Malignant neoplasm of thyroid gland Papillary thyroid carcinoma (CMS/HCC) Anxiety and depression (CMS/HCC) Hidradenitis suppurativa of multiple sites Essential hypertension (CMS/HCC)- Primary Unspecified essential hypertension KARINE (obstructive sleep apnea) Obstructive sleep apnea (adult) (pediatric) Bilateral lower extremity edema Vitamin D deficiency Uncontrolled type 2 diabetes mellitus 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, with long-term current use of insulin (CMS/HCC) Class 3 severe obesity due to excess calories with serious comorbidity and body mass index (BMI) of 50.0 to 59.9 in adult Anxiety and depression (CMS/HCC) Allergic rhinitis, unspecified seasonality, unspecified trigger Encounter for screening mammogram for malignant neoplasm of breast Left foot pain Pain in soft tissues of limb Other chronic pain Anxiety and depression (CMS/HCC)- Primary KARINE (obstructive sleep apnea) Obstructive sleep apnea (adult) (pediatric) Essential hypertension (CMS/HCC) Unspecified essential hypertension Bilateral lower extremity edema Class 3 severe obesity due to excess calories with serious comorbidity and body mass index (BMI) of 50.0 to 59.9 in adult Papillary thyroid carcinoma (CMS/HCC) Uncontrolled type 2 diabetes mellitus 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, with long-term current use of insulin (CMS/HCC) Mixed hyperlipidemia (CMS/HCC) Mixed hyperlipidemia Pap smear for cervical cancer screening Screening for malignant neoplasm of the cervix Hidradenitis suppurativa of multiple sites- Primary [facility] Diagnosis Essential hypertension (CMS/HCC)- Primary Unspecified essential hypertension BMI 45.0-49.9, adult (CMS/HCC) Uncontrolled type 2 diabetes mellitus 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, with long-term current use of insulin (CMS/HCC) Anxiety and depression (CMS/HCC) Essential hypertension (CMS/HCC)- Primary Unspecified essential hypertension Bilateral lower extremity edema Vitamin D deficiency Mixed hyperlipidemia (CMS/HCC) Mixed hyperlipidemia History of rectal polyps Uncontrolled type 2 diabetes mellitus 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, with long-term current use of insulin (CMS/HCC) Anxiety and depression (CMS/HCC) Allergic rhinitis, unspecified seasonality, unspecified trigger Essential hypertension (CMS/HCC)- Primary Unspecified essential hypertension Malignant neoplasm of thyroid gland (CMS/HCC) Malignant neoplasm of thyroid gland Pain of left hip Lumbar back pain with radiculopathy affecting left lower extremity Bilateral lower extremity edema Uncontrolled type 2 diabetes mellitus 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, with long-term current use of insulin (CMS/HCC) Class 3 severe obesity due to excess calories with serious comorbidity and body mass index (BMI) of 50.0 to 59.9 in adult Essential hypertension (CMS/HCC)- Primary Unspecified essential hypertension KARINE (obstructive sleep apnea) Obstructive sleep apnea (adult) (pediatric) Arthritis of knee, right Bilateral lower extremity edema Class 3 severe obesity due to excess calories with serious comorbidity and body mass index (BMI) of 50.0 to 59.9 in adult Malignant neoplasm of thyroid gland (CMS/HCC) Malignant neoplasm of thyroid gland Papillary thyroid carcinoma (CMS/HCC) Anxiety and depression (CMS/HCC) Hidradenitis suppurativa of multiple sites Essential hypertension (CMS/HCC)- Primary Unspecified essential hypertension KARINE (obstructive sleep apnea) Obstructive sleep apnea (adult) (pediatric) Bilateral lower extremity edema Vitamin D deficiency Uncontrolled type 2 diabetes mellitus 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, with long-term current use of insulin (CMS/HCC) Class 3 severe obesity due to excess calories with serious comorbidity and body mass index (BMI) of 50.0 to 59.9 in adult Anxiety and depression (CMS/HCC) Allergic rhinitis, unspecified seasonality, unspecified trigger Encounter for screening mammogram for malignant neoplasm of breast Left foot pain Pain in soft tissues of limb Other chronic pain Anxiety and depression (CMS/HCC)- Primary KARINE (obstructive sleep apnea) Obstructive sleep apnea (adult) (pediatric) Essential hypertension (CMS/HCC) Unspecified essential hypertension Bilateral lower extremity edema Class 3 severe obesity due to excess calories with serious comorbidity and body mass index (BMI) of 50.0 to 59.9 in adult Papillary thyroid carcinoma (CMS/HCC) Uncontrolled type 2 diabetes mellitus 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, with long-term current use of insulin (CMS/HCC) Mixed hyperlipidemia (CMS/HCC) Mixed hyperlipidemia Pap smear for cervical cancer screening Screening for malignant neoplasm of the cervix Chest pain of unknown etiology- Primary Essential hypertension (CMS/HCC) Unspecified essential hypertension KARINE (obstructive sleep apnea) Obstructive sleep apnea (adult) (pediatric) Class 3 severe obesity due to excess calories with serious comorbidity and body mass index (BMI) of 50.0 to 59.9 in adult Uncontrolled type 2 diabetes mellitus 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, with long-term current use of insulin (CMS/HCC) [facility] History of thyroid cancer- Primary Personal history of malignant neoplasm of thyroid [facility] History of thyroid cancer- Primary Personal history of malignant neoplasm of thyroid documented in this encounter [facility]* Diagnosis Essential hypertension- Primary Unspecified essential hypertension BMI 45.0-49.9, adult ([facility]) Uncontrolled type 2 diabetes mellitus 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, with long-term current use of insulin ([facility]) Anxiety and depression Essential hypertension- Primary Unspecified essential hypertension Bilateral lower extremity edema Vitamin D deficiency Mixed hyperlipidemia Mixed hyperlipidemia History of rectal polyps Uncontrolled type 2 diabetes mellitus 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, with long-term current use of insulin ([facility]) Anxiety and depression Allergic rhinitis, unspecified seasonality, unspecified trigger Essential hypertension- Primary Unspecified essential hypertension Malignant neoplasm of thyroid gland (HCC) Malignant neoplasm of thyroid gland Pain of left hip Lumbar back pain with radiculopathy affecting left lower extremity Bilateral lower extremity edema Uncontrolled type 2 diabetes mellitus 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, with long-term current use of insulin ([facility]) Class 3 severe obesity due to excess calories with serious comorbidity and body mass index (BMI) of 50.0 to 59.9 in adult ([facility]) Essential hypertension- Primary Unspecified essential hypertension KARINE (obstructive sleep apnea) Obstructive sleep apnea (adult) (pediatric) Arthritis of knee, right Bilateral lower extremity edema Class 3 severe obesity due to excess calories with serious comorbidity and body mass index (BMI) of 50.0 to 59.9 in adult ([facility]) Malignant neoplasm of thyroid gland (HCC) Malignant neoplasm of thyroid gland Papillary thyroid carcinoma (HCC) Anxiety and depression Hidradenitis suppurativa of multiple sites Essential hypertension- Primary Unspecified essential hypertension KARINE (obstructive sleep apnea) Obstructive sleep apnea (adult) (pediatric) Bilateral lower extremity edema Vitamin D deficiency Uncontrolled type 2 diabetes mellitus 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, with long-term current use of insulin ([facility]) Class 3 severe obesity due to excess calories with serious comorbidity and body mass index (BMI) of 50.0 to 59.9 in adult ([facility]) Anxiety and depression Allergic rhinitis, unspecified seasonality, unspecified trigger Encounter for screening mammogram for malignant neoplasm of breast Left foot pain Pain in soft tissues of limb Other chronic pain Anxiety and depression- Primary KARINE (obstructive sleep apnea) Obstructive sleep apnea (adult) (pediatric) Essential hypertension Unspecified essential hypertension Bilateral lower extremity edema Class 3 severe obesity due to excess calories with serious comorbidity and body mass index (BMI) of 50.0 to 59.9 in adult ([facility]) Papillary thyroid carcinoma (HCC) Uncontrolled type 2 diabetes mellitus 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, with long-term current use of insulin (HCC) Mixed hyperlipidemia Mixed hyperlipidemia Pap smear for cervical cancer screening Screening for malignant neoplasm of the cervix Chest pain of unknown etiology- Primary Essential hypertension Unspecified essential hypertension KARINE (obstructive sleep apnea) Obstructive sleep apnea (adult) (pediatric) Class 3 severe obesity due to excess calories with serious comorbidity and body mass index (BMI) of 50.0 to 59.9 in adult ([facility]) Uncontrolled type 2 diabetes mellitus 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, with long-term current use of insulin ([facility]) Essential hypertension Unspecified essential hypertension documented in [facility]* Diagnosis Essential hypertension- Primary Unspecified essential hypertension BMI 45.0-49.9, adult ([facility]) Uncontrolled type 2 diabetes mellitus 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, with long-term current use of insulin ([facility]) Anxiety and depression Essential hypertension- Primary Unspecified essential hypertension Bilateral lower extremity edema Vitamin D deficiency Mixed hyperlipidemia Mixed hyperlipidemia History of rectal polyps Uncontrolled type 2 diabetes mellitus 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, with long-term current use of insulin ([facility]) Anxiety and depression Allergic rhinitis, unspecified seasonality, unspecified trigger Essential hypertension- Primary Unspecified essential hypertension Malignant neoplasm of thyroid gland (HCC) Malignant neoplasm of thyroid gland Pain of left hip Lumbar back pain with radiculopathy affecting left lower extremity Bilateral lower extremity edema Uncontrolled type 2 diabetes mellitus 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, with long-term current use of insulin ([facility]) Class 3 severe obesity due to excess calories with serious comorbidity and body mass index (BMI) of 50.0 to 59.9 in adult ([facility]) Essential hypertension- Primary Unspecified essential hypertension KARINE (obstructive sleep apnea) Obstructive sleep apnea (adult) (pediatric) Arthritis of knee, right Bilateral lower extremity edema Class 3 severe obesity due to excess calories with serious comorbidity and body mass index (BMI) of 50.0 to 59.9 in adult ([facility]) Malignant neoplasm of thyroid gland (HCC) Malignant neoplasm of thyroid gland Papillary thyroid carcinoma (HCC) Anxiety and depression Hidradenitis suppurativa of multiple sites Essential hypertension- Primary Unspecified essential hypertension KARINE (obstructive sleep apnea) Obstructive sleep apnea (adult) (pediatric) Bilateral lower extremity edema Vitamin D deficiency Uncontrolled type 2 diabetes mellitus 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, with long-term current use of insulin ([facility]) Class 3 severe obesity due to excess calories with serious comorbidity and body mass index (BMI) of 50.0 to 59.9 in adult ([facility]) Anxiety and depression Allergic rhinitis, unspecified seasonality, unspecified trigger Encounter for screening mammogram for malignant neoplasm of breast Left foot pain Pain in soft tissues of limb Other chronic pain Anxiety and depression- Primary KARINE (obstructive sleep apnea) Obstructive sleep apnea (adult) (pediatric) Essential hypertension Unspecified essential hypertension Bilateral lower extremity edema Class 3 severe obesity due to excess calories with serious comorbidity and body mass index (BMI) of 50.0 to 59.9 in adult ([facility]) Papillary thyroid carcinoma (HCC) Uncontrolled type 2 diabetes mellitus 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, with long-term current use of insulin ([facility]) Mixed hyperlipidemia Mixed hyperlipidemia Pap smear for cervical cancer screening Screening for malignant neoplasm of the cervix Chest pain of unknown etiology- Primary Essential hypertension Unspecified essential hypertension KARINE (obstructive sleep apnea) Obstructive sleep apnea (adult) (pediatric) Class 3 severe obesity due to excess calories with serious comorbidity and body mass index (BMI) of 50.0 to 59.9 in adult ([facility]) Uncontrolled type 2 diabetes mellitus 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, with long-term current use of insulin ([facility]) Uncontrolled type 2 diabetes mellitus 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, with long-term current use of insulin (HCC) documented in this encounter [facility]* Diagnosis Essential hypertension- Primary Unspecified essential hypertension BMI 45.0-49.9, adult ([facility]) Uncontrolled type 2 diabetes mellitus 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, with long-term current use of insulin ([facility]) Anxiety and depression Essential hypertension- Primary Unspecified essential hypertension Bilateral lower extremity edema Vitamin D deficiency Mixed hyperlipidemia Mixed hyperlipidemia History of rectal polyps Uncontrolled type 2 diabetes mellitus 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, with long-term current use of insulin ([facility]) Anxiety and depression Allergic rhinitis, unspecified seasonality, unspecified trigger Essential hypertension- Primary Unspecified essential hypertension Malignant neoplasm of thyroid gland (HCC) Malignant neoplasm of thyroid gland Pain of left hip Lumbar back pain with radiculopathy affecting left lower extremity Bilateral lower extremity edema Uncontrolled type 2 diabetes mellitus 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, with long-term current use of insulin ([facility]) Class 3 severe obesity due to excess calories with serious comorbidity and body mass index (BMI) of 50.0 to 59.9 in adult ([facility]) Essential hypertension- Primary Unspecified essential hypertension KARINE (obstructive sleep apnea) Obstructive sleep apnea (adult) (pediatric) Arthritis of knee, right Bilateral lower extremity edema Class 3 severe obesity due to excess calories with serious comorbidity and body mass index (BMI) of 50.0 to 59.9 in adult ([facility]) Malignant neoplasm of thyroid gland (HCC) Malignant neoplasm of thyroid gland Papillary thyroid carcinoma (HCC) Anxiety and depression Hidradenitis suppurativa of multiple sites Essential hypertension- Primary Unspecified essential hypertension KARINE (obstructive sleep apnea) Obstructive sleep apnea (adult) (pediatric) Bilateral lower extremity edema Vitamin D deficiency Uncontrolled type 2 diabetes mellitus 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, with long-term current use of insulin ([facility]) Class 3 severe obesity due to excess calories with serious comorbidity and body mass index (BMI) of 50.0 to 59.9 in adult ([facility]) Anxiety and depression Allergic rhinitis, unspecified seasonality, unspecified trigger Encounter for screening mammogram for malignant neoplasm of breast Left foot pain Pain in soft tissues of limb Other chronic pain Anxiety and depression- Primary KARINE (obstructive sleep apnea) Obstructive sleep apnea (adult) (pediatric) Essential hypertension Unspecified essential hypertension Bilateral lower extremity edema Class 3 severe obesity due to excess calories with serious comorbidity and body mass index (BMI) of 50.0 to 59.9 in adult ([facility]) Papillary thyroid carcinoma (HCC) Uncontrolled type 2 diabetes mellitus 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, with long-term current use of insulin ([facility]) Mixed hyperlipidemia Mixed hyperlipidemia Pap smear for cervical cancer screening Screening for malignant neoplasm of the cervix Chest pain of unknown etiology- Primary Essential hypertension Unspecified essential hypertension KARINE (obstructive sleep apnea) Obstructive sleep apnea (adult) (pediatric) Class 3 severe obesity due to excess calories with serious comorbidity and body mass index (BMI) of 50.0 to 59.9 in adult ([facility]) Uncontrolled type 2 diabetes mellitus 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, with long-term current use of insulin (HCC) Essential hypertension Unspecified essential hypertension Bilateral lower extremity edema Uncontrolled type 2 diabetes mellitus 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, with long-term current use of insulin (HCC) Chronic pain syndrome Anxiety and depression [facility]* Diagnosis Essential hypertension- Primary Unspecified essential hypertension BMI 45.0-49.9, adult ([facility]) Uncontrolled type 2 diabetes mellitus 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, with long-term current use of insulin (HCC) Anxiety and depression Essential hypertension- Primary Unspecified essential hypertension Bilateral lower extremity edema Vitamin D deficiency Mixed hyperlipidemia Mixed hyperlipidemia History of rectal polyps Uncontrolled type 2 diabetes mellitus 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, with long-term current use of insulin ([facility]) Anxiety and depression Allergic rhinitis, unspecified seasonality, unspecified trigger Essential hypertension- Primary Unspecified essential hypertension Malignant neoplasm of thyroid gland (HCC) Malignant neoplasm of thyroid gland Pain of left hip Lumbar back pain with radiculopathy affecting left lower extremity Bilateral lower extremity edema Uncontrolled type 2 diabetes mellitus 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, with long-term current use of insulin ([facility]) Class 3 severe obesity due to excess calories with serious comorbidity and body mass index (BMI) of 50.0 to 59.9 in adult ([facility]) Essential hypertension- Primary Unspecified essential hypertension KARINE (obstructive sleep apnea) Obstructive sleep apnea (adult) (pediatric) Arthritis of knee, right Bilateral lower extremity edema Class 3 severe obesity due to excess calories with serious comorbidity and body mass index (BMI) of 50.0 to 59.9 in adult ([facility]) Malignant neoplasm of thyroid gland (HCC) Malignant neoplasm of thyroid gland Papillary thyroid carcinoma (HCC) Anxiety and depression Hidradenitis suppurativa of multiple sites Essential hypertension- Primary Unspecified essential hypertension KARINE (obstructive sleep apnea) Obstructive sleep apnea (adult) (pediatric) Bilateral lower extremity edema Vitamin D deficiency Uncontrolled type 2 diabetes mellitus 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, with long-term current use of insulin ([facility]) Class 3 severe obesity due to excess calories with serious comorbidity and body mass index (BMI) of 50.0 to 59.9 in adult ([facility]) Anxiety and depression Allergic rhinitis, unspecified seasonality, unspecified trigger Encounter for screening mammogram for malignant neoplasm of breast Left foot pain Pain in soft tissues of limb Other chronic pain Anxiety and depression- Primary KARINE (obstructive sleep apnea) Obstructive sleep apnea (adult) (pediatric) Essential hypertension Unspecified essential hypertension Bilateral lower extremity edema Class 3 severe obesity due to excess calories with serious comorbidity and body mass index (BMI) of 50.0 to 59.9 in adult ([facility]) Papillary thyroid carcinoma (HCC) Uncontrolled type 2 diabetes mellitus 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, with long-term current use of insulin ([facility]) Mixed hyperlipidemia Mixed hyperlipidemia Pap smear for cervical cancer screening Screening for malignant neoplasm of the cervix Chest pain of unknown etiology- Primary Essential hypertension Unspecified essential hypertension KARINE (obstructive sleep apnea) Obstructive sleep apnea (adult) (pediatric) Class 3 severe obesity due to excess calories with serious comorbidity and body mass index (BMI) of 50.0 to 59.9 in adult ([facility]) Uncontrolled type 2 diabetes mellitus 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, with long-term current use of insulin (HCC) Mixed hyperlipidemia Mixed hyperlipidemia Other chronic pain Allergic rhinitis, unspecified seasonality, unspecified trigger documented in this encounter [facility]* Diagnosis Essential hypertension- Primary Unspecified essential hypertension BMI 45.0-49.9, adult ([facility]) Uncontrolled type 2 diabetes mellitus 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, with long-term current use of insulin ([facility]) Anxiety and depression Essential hypertension- Primary Unspecified essential hypertension Bilateral lower extremity edema Vitamin D deficiency Mixed hyperlipidemia Mixed hyperlipidemia History of rectal polyps Uncontrolled type 2 diabetes mellitus 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, with long-term current use of insulin ([facility]) Anxiety and depression Allergic rhinitis, unspecified seasonality, unspecified trigger Essential hypertension- Primary Unspecified essential hypertension Malignant neoplasm of thyroid gland (HCC) Malignant neoplasm of thyroid gland Pain of left hip Lumbar back pain with radiculopathy affecting left lower extremity Bilateral lower extremity edema Uncontrolled type 2 diabetes mellitus 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, with long-term current use of insulin ([facility]) Class 3 severe obesity due to excess calories with serious comorbidity and body mass index (BMI) of 50.0 to 59.9 in adult ([facility]) Essential hypertension- Primary Unspecified essential hypertension KARINE (obstructive sleep apnea) Obstructive sleep apnea (adult) (pediatric) Arthritis of knee, right Bilateral lower extremity edema Class 3 severe obesity due to excess calories with serious comorbidity and body mass index (BMI) of 50.0 to 59.9 in adult ([facility]) Malignant neoplasm of thyroid gland (HCC) Malignant neoplasm of thyroid gland Papillary thyroid carcinoma (HCC) Anxiety and depression Hidradenitis suppurativa of multiple sites Essential hypertension- Primary Unspecified essential hypertension KARINE (obstructive sleep apnea) Obstructive sleep apnea (adult) (pediatric) Bilateral lower extremity edema Vitamin D deficiency Uncontrolled type 2 diabetes mellitus 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, with long-term current use of insulin ([facility]) Class 3 severe obesity due to excess calories with serious comorbidity and body mass index (BMI) of 50.0 to 59.9 in adult ([facility]) Anxiety and depression Allergic rhinitis, unspecified seasonality, unspecified trigger Encounter for screening mammogram for malignant neoplasm of breast Left foot pain Pain in soft tissues of limb Other chronic pain Anxiety and depression- Primary KARINE (obstructive sleep apnea) Obstructive sleep apnea (adult) (pediatric) Essential hypertension Unspecified essential hypertension Bilateral lower extremity edema Class 3 severe obesity due to excess calories with serious comorbidity and body mass index (BMI) of 50.0 to 59.9 in adult ([facility]) Papillary thyroid carcinoma (HCC) Uncontrolled type 2 diabetes mellitus 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, with long-term current use of insulin ([facility]) Mixed hyperlipidemia Mixed hyperlipidemia Pap smear for cervical cancer screening Screening for malignant neoplasm of the cervix Chest pain of unknown etiology- Primary Essential hypertension Unspecified essential hypertension KARINE (obstructive sleep apnea) Obstructive sleep apnea (adult) (pediatric) Class 3 severe obesity due to excess calories with serious comorbidity and body mass index (BMI) of 50.0 to 59.9 in adult ([facility]) Uncontrolled type 2 diabetes mellitus 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, with long-term current use of insulin ([facility]) Abnormal stress test- Primary Other nonspecific abnormal cardiovascular system function study documented in this encounter [facility]* Diagnosis Essential hypertension- Primary Unspecified essential hypertension BMI 45.0-49.9, adult ([facility]) Uncontrolled type 2 diabetes mellitus 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, with long-term current use of insulin ([facility]) Anxiety and depression Essential hypertension- Primary Unspecified essential hypertension Bilateral lower extremity edema Vitamin D deficiency Mixed hyperlipidemia Mixed hyperlipidemia History of rectal polyps Uncontrolled type 2 diabetes mellitus 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, with long-term current use of insulin ([facility]) Anxiety and depression Allergic rhinitis, unspecified seasonality, unspecified trigger Essential hypertension- Primary Unspecified essential hypertension Malignant neoplasm of thyroid gland (HCC) Malignant neoplasm of thyroid gland Pain of left hip Lumbar back pain with radiculopathy affecting left lower extremity Bilateral lower extremity edema Uncontrolled type 2 diabetes mellitus 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, with long-term current use of insulin ([facility]) Class 3 severe obesity due to excess calories with serious comorbidity and body mass index (BMI) of 50.0 to 59.9 in adult ([facility]) Essential hypertension- Primary Unspecified essential hypertension KARINE (obstructive sleep apnea) Obstructive sleep apnea (adult) (pediatric) Arthritis of knee, right Bilateral lower extremity edema Class 3 severe obesity due to excess calories with serious comorbidity and body mass index (BMI) of 50.0 to 59.9 in adult ([facility]) Malignant neoplasm of thyroid gland (HCC) Malignant neoplasm of thyroid gland Papillary thyroid carcinoma (HCC) Anxiety and depression Hidradenitis suppurativa of multiple sites Essential hypertension- Primary Unspecified essential hypertension KARINE (obstructive sleep apnea) Obstructive sleep apnea (adult) (pediatric) Bilateral lower extremity edema Vitamin D deficiency Uncontrolled type 2 diabetes mellitus 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, with long-term current use of insulin ([facility]) Class 3 severe obesity due to excess calories with serious comorbidity and body mass index (BMI) of 50.0 to 59.9 in adult ([facility]) Anxiety and depression Allergic rhinitis, unspecified seasonality, unspecified trigger Encounter for screening mammogram for malignant neoplasm of breast Left foot pain Pain in soft tissues of limb Other chronic pain Anxiety and depression- Primary KARINE (obstructive sleep apnea) Obstructive sleep apnea (adult) (pediatric) Essential hypertension Unspecified essential hypertension Bilateral lower extremity edema Class 3 severe obesity due to excess calories with serious comorbidity and body mass index (BMI) of 50.0 to 59.9 in adult ([facility]) Papillary thyroid carcinoma (HCC) Uncontrolled type 2 diabetes mellitus 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, with long-term current use of insulin (HCC) Mixed hyperlipidemia Mixed hyperlipidemia Pap smear for cervical cancer screening Screening for malignant neoplasm of the cervix Chest pain of unknown etiology- Primary Essential hypertension Unspecified essential hypertension KARINE (obstructive sleep apnea) Obstructive sleep apnea (adult) (pediatric) Class 3 severe obesity due to excess calories with serious comorbidity and body mass index (BMI) of 50.0 to 59.9 in adult ([facility]) Uncontrolled type 2 diabetes mellitus 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, with long-term current use of insulin (HCC) Hot flashes- Primary documented in this encounter [facility] HealthcareInstructionsNot on filedocumented in this encounterProC[facility] SystemInstructionsNot on filedocumented in this encounterOhioHealth [facility] Summary Purpose Family History No Family History [...] or prosecute any alcohol or drug abuse patient.[facility] CenterIn the event this information is protected by the Federal Confidentiality of Alcohol and Drug Abuse Patient Records regulations: The Federal rules restrict any use of the information to criminally investigate or prosecute any alcohol or drug abuse patient.[facility] CenterIn the event this information is protected by the Federal Confidentiality of Alcohol and Drug Abuse Patient Records regulations: The Federal rules restrict any use of the information to criminally investigate or prosecute any alcohol or drug abuse patient.[facility] CenterIn the event this information is protected by the Federal Confidentiality of Alcohol and Drug Abuse Patient Records regulations: The Federal rules restrict any use of the information to criminally investigate or prosecute any alcohol or drug abuse patient.[facility] CenterIn the event this information is protected by the Federal Confidentiality of Alcohol and Drug Abuse Patient Records regulations: The Federal rules restrict any use of the information to criminally investigate or prosecute any alcohol or drug abuse patient.[facility] CenterIn the event this information is protected by the Federal Confidentiality of Alcohol and Drug Abuse Patient Records regulations: The Federal rules restrict any use of the information to criminally investigate or prosecute any alcohol or drug abuse patient.[facility] CenterIn the event this information is protected by the Federal Confidentiality of Alcohol and Drug Abuse Patient Records regulations: The Federal rules restrict any use of the information to criminally investigate or prosecute any alcohol or drug abuse patient.[facility] CenterIn the event this information is protected by the Federal Confidentiality of Alcohol and Drug Abuse Patient Records regulations: The Federal rules restrict any use of the information to criminally investigate or prosecute any alcohol or drug abuse patient.[facility] CenterIn the event this information is protected by the Federal Confidentiality of Alcohol and Drug Abuse Patient Records regulations: The Federal rules restrict any use of the information to criminally investigate or prosecute any alcohol or drug abuse patient.[facility] CenterIn the event this information is protected by the Federal Confidentiality of Alcohol and Drug Abuse Patient Records regulations: The Federal rules restrict any use of the information to criminally investigate or prosecute any alcohol or drug abuse patient.[facility] CenterIn the event this information is protected by the Federal Confidentiality of Alcohol and Drug Abuse Patient Records regulations: The Federal rules restrict any use of the information to criminally investigate or prosecute any alcohol or drug abuse patient.[facility] CenterIn the event this information is protected by the Federal Confidentiality of Alcohol and Drug Abuse Patient Records regulations: The Federal rules restrict any use of the information to criminally investigate or prosecute any alcohol or drug abuse patient.[facility] CenterIn the event this information is protected by the Federal Confidentiality of Alcohol and Drug Abuse Patient Records regulations: The Federal rules restrict any use of the information to criminally investigate or prosecute any alcohol or drug abuse patient.[facility] CenterIn the event this information is protected by the Federal Confidentiality of Alcohol and Drug Abuse Patient Records regulations: The Federal rules restrict any use of the information to criminally investigate or prosecute any alcohol or drug abuse patient.[facility] CenterIn the event this information is protected by the Federal Confidentiality of Alcohol and Drug Abuse Patient Records regulations: The Federal rules restrict any use of the information to criminally investigate or prosecute any alcohol or drug abuse patient.[facility] CenterIn the event this information is protected by the Federal Confidentiality of Alcohol and Drug Abuse Patient Records regulations: The Federal rules restrict any use of the information to criminally investigate or prosecute any alcohol or drug abuse patient.[facility] CenterIn the event this information is protected by the Federal Confidentiality of Alcohol and Drug Abuse Patient Records regulations: The Federal rules restrict any use of the information to criminally investigate or prosecute any alcohol or drug abuse patient.[facility] CenterIn the event this information is protected by the Federal Confidentiality of Alcohol and Drug Abuse Patient Records regulations: The Federal rules restrict any use of the information to criminally investigate or prosecute any alcohol or drug abuse patient.[facility] CenterIn the event this information is protected by the Federal Confidentiality of Alcohol and Drug Abuse Patient Records regulations: The Federal rules restrict any use of the information to criminally investigate or prosecute any alcohol or drug abuse patient.[facility] CenterIn the event this information is protected by the Federal Confidentiality of Alcohol and Drug Abuse Patient Records regulations: The Federal rules restrict any use of the information to criminally investigate or prosecute any alcohol or drug abuse patient.[facility] CenterIn the event this information is protected by the Federal Confidentiality of Alcohol and Drug Abuse Patient Records regulations: The Federal rules restrict any use of the information to criminally investigate or prosecute any alcohol or drug abuse patient.[facility] CenterIn the event this information is protected by the Federal Confidentiality of Alcohol and Drug Abuse Patient Records regulations: The Federal rules restrict any use of the information to criminally investigate or prosecute any alcohol or drug abuse patient.[facility] CenterIn the event this information is protected by the Federal Confidentiality of Alcohol and Drug Abuse Patient Records regulations: The Federal rules restrict any use of the information to criminally investigate or prosecute any alcohol or drug abuse patient.[facility] CenterIn the event this information is protected by the Federal Confidentiality of Alcohol and Drug Abuse Patient Records regulations: The Federal rules restrict any use of the information to criminally investigate or prosecute any alcohol or drug abuse patient.[facility] CenterIn the event this information is protected by the Federal Confidentiality of Alcohol and Drug Abuse Patient Records regulations: The Federal rules restrict any use of the information to criminally investigate or prosecute any alcohol or drug abuse patient.[facility] CenterIn the event this information is protected by the Federal Confidentiality of Alcohol and Drug Abuse Patient Records regulations: The Federal rules restrict any use of the information to criminally investigate or prosecute any alcohol or drug abuse patient.[facility] CenterIn the event this information is protected by the Federal Confidentiality of Alcohol and Drug Abuse Patient Records regulations: The Federal rules restrict any use of the information to criminally investigate or prosecute any alcohol or drug abuse patient.[facility] Reason for Visit (unrecogniz ed section and content) Reason Comments Established Patient Specialty Diagnoses / Procedures Referred By Contac t Referred To Contact Radiation Oncology / RADIATION ONCOLOGY Diagnoses Follow-up examination 4 Month Follow UP Procedures PHYS/QHP TELEPHONE EVALUATION 5-10 MIN PROVIDER SPECIALTY PHONE CALL Zion Pringle MD [facility] [place] [address] Zion Pringle MD [facility] [place] [address] Referral ID Status Reason Start Date Expiration Date Visits Re quested Visits Authorized [id number] Closed 02/15/2024 06/05/2024 1 1 Reason Comments Follow Up Specialty Diagnoses / Procedures Referred By Contac t Referred To Contact Radiation Oncology / RADIATION ONCOLOGY Diagnoses phone visit after labs [phone] labs drawn at [facility] Procedures PROVIDER SPECIALTY PHONE CALL Zion Pringle MD [address] [place] [address] Zion Pringle MD [address] [place] [address] [place] [address] Referral ID Status Reason Start Date Expiration Date V isits Requested Visits Authorized [id number] Pending Review 09/29/2021 12/28/2021 99 99 Reason Comments Thyroid Cancer Reason Onset Date Comments Refill Request 04/16/2022 Reason Comments Orders faxed Reason Onset Date Comments Future Appointment 11/18/2022 Reason Onset Date Comments Refill Request 01/03/2023 Reason Comments Appointment Confirmation Reason Onset Date Comments Refill Request 05/04/2023 Reason Comments Future Appointment Reason Onset Date Comments Refill Request 09/05/2023 Reason Onset Date Comments Refill Request 02/08/2024 Appointment 02/08/2024 Reason Comments Diabetes Reason Comments Lab Orders Future Appointment Reason Onset Date Comments Med Refill 04/17/2024 Reason Comments Hypertension Reason Comments Med Refill Reason Onset Date Comments Refill Request 06/13/2024 Reason Comments Colon Cancer Screening 5 year recall Reason Comments Lab Orders Patient Update Future Appointment Reason Onset Date Comments Med Refill 09/07/2024 Reason Comments Anxiety Reason Comments Results Patient Update Future Appointment Reason Comments Results Future Appointment Reason Onset Date Comments Refill Request 11/23/2024 Reason Onset Date Comments Med Refill 01/08/2025 Reason Onset Date Comments Med Refill 01/09/2025 Reason Comments Follow-up Care Teams (unrecognized sec tion and content) [employer] Extension Specialist Relationship Specialty Start Date End Date Katalina Colbert, TECHNICAL SOLUTIONS ENGINEER PCP - General Family Practice 11/26/14 Zion Pringle MD [address] [facility] [place] [address] Radiation Oncology 05/28/20 University Extension Specialist Relationship Specialty Start Date End Date Katalina Colbert, [facility] PCP - General Family Medicine 11/26/14 Zion Pringle MD [address] [address] Radiation Oncology 05/28/20 University Extension Specialist Relationship Specialty Start Date End Date [facility] PCP - General Family Medicine 11/26/14 Zion Pringle MD [address] [address] Radiation Oncology 05/28/20 University Extension Specialist Relationship Specialty Start Date End Date [facility] PCP - General Family Medicine 11/26/14 Zion Pringle MD [address] [address] Radiation Oncology 05/28/20 University Extension Specialist Relationship Specialty Start Date End Date Katalina Colbert [facility] PCP - General Family Medicine 11/26/14 Zion Pringle MD [address] [address] Radiation Oncology 05/28/20 University Extension Specialist Relationship Specialty Start Date End Date Katalina Colbert [facility] PCP - General Family Medicine 11/26/14 Zion Pringle MD [address] [facility] [place] [address] Radiation Oncology 05/28/20 University Extension Specialist Relationship Specialty Start Date End Date [facility] PCP - General Family Medicine 11/26/14 Zion Pringle MD [address] [facility] [place] [address] Radiation Oncology 05/28/20 University Extension Specialist Relationship Specialty Start Date End Date [facility] TECHNICAL SOLUTIONS ENGINEER PCP - General Family Medicine 11/26/14 Zion Pringle MD [address] [facility] [place] [address] Radiation Oncology 05/28/20 University Extension Specialist Relationship Specialty Start Date End Date [facility] TECHNICAL SOLUTIONS ENGINEER PCP - General Family Medicine 11/26/14 Zion Pringle MD [address] [address] Radiation Oncology 05/28/20 University Extension Specialist Relationship Specialty Start Date End Date [facility] TECHNICAL SOLUTIONS ENGINEER PCP - General Family Medicine 11/26/14 Zion Pringle MD [address] [address] Radiation Oncology 05/28/20 University Extension Specialist Relationship Specialty Start Date End Date Kervin Gunter MD [address] [place] [address] PCP - General Family Medicine 06/01/23 Katalina Colbert, [employer]ICAL GLASS INSPECTOR [address] [place] [address] Nurse Practitioner Family Medicine 03/06/23 University Extension Specialist Relationship Specialty Start Date End Date Katalina Colbert, TECHNICAL SOLUTIONS ENGINEER PCP - General Family Medicine 11/26/14 Zion Pringle MD [address] [place] [address] [place] [address] Radiation Oncology 05/28/20 University Extension Specialist Relationship Specialty Start Date End Date Kervin Gunter MD [address] [place] [phone] PCP - General Family Medicine 06/01/23 Katalina Colbert, OPTICAL GLASS INSPECTOR [address] [place] [address] Nurse Practitioner Family Medicine 03/06/23 University Extension Specialist Relationship Specialty Start Date End Date Kervin Gunter MD [address] [place] [phone] PCP - General Family Medicine 06/01/23 Katalina Colbert, OPTICAL GLASS INSPECTOR [address] [place] [address] Nurse Practitioner Family Medicine 03/06/23 University Extension Specialist Relationship Specialty Start Date End Date Kervin Gunter MD [address] [place] [phone] PCP - General Family Medicine 06/01/23 Katalina Colbert NP [address] [place] [address] Nurse Practitioner Family Medicine 03/06/23 University Extension Specialist Relationship Specialty Start Date End Date Katalina Colbert, TECHNICAL SOLUTIONS ENGINEER PCP - General Family Medicine 11/26/14 Zion Pringle MD [address] [place] [address] Radiation Oncology 05/28/20 University Extension Specialist Relationship Specialty Start Date End Date Katalina Colbert, TECHNICAL SOLUTIONS ENGINEER PCP - General Family Medicine 11/26/14 Zion Pringle MD [address] [place] [address] Radiation Oncology 05/28/20 University Extension Specialist Relationship Specialty Start Date End Date Kervin Gunter MD [address] [place] [phone] PCP - General Family Medicine 06/01/23 Katalina Colbert, NETTIE [address] [place] [address] Nurse Practitioner Family Medicine 03/06/23 University Extension Specialist Relationship Specialty Start Date End Date Kervin Gunter MD [address] [place] [phone] PCP - General Family Medicine 06/01/23 Katalina Colbert NP [address] [place] [address] Nurse Practitioner Family Medicine 03/06/23 University Extension Specialist Relationship Specialty Start Date End Date Kervin Gunter MD [address] [place] [phone] PCP - General Family Medicine 06/01/23 Katalina Colbert NP [address] [place] [address] Nurse Practitioner Family Medicine 03/06/23 University Extension Specialist Relationship Specialty Start Date End Date Kervin Gunter MD [address] [place] [address] PCP - General Family Medicine 06/01/23 Katalina Colbert NP [address] [place] [address] Nurse Practitioner Family Medicine 03/06/23 University Extension Specialist Relationship Specialty Start Date End Date Kervin Gunter MD [address] [place] [phone] PCP - General Family Medicine 06/01/23 Katalina Colbert NP [address] [place] [address] Nurse Practitioner Family Medicine 03/06/23 University Extension Specialist Relationship Specialty Start Date End Date Kervin Gunter MD [address] [place] [address] PCP - General Family Medicine 06/01/23 Katalina Colbert NP [address] [place] [address] Nurse Practitioner Family Medicine 03/06/23 University Extension Specialist Relationship Specialty Start Date End Date Kervin Gunter MD [address] [place] [address] PCP - General Family Medicine 06/01/23 Katalina Colbert NP [address] [place] [address] Nurse Practitioner Family Medicine 03/06/23 University Extension Specialist Relationship Specialty Start Date End Date Kervin Gunter MD [address] [place] [address] PCP - General Family Medicine 06/01/23 Katalina Colbert NP [address] [place] [address] Nurse Practitioner Family Medicine 03/06/23 University Extension Specialist Relationship Specialty Start Date End Date Kervin Gunter MD [address] [place] [address] PCP - General Family Medicine 06/01/23 Katalina Colbert NP [address] [place] [address] Nurse Practitioner Family Medicine 03/06/23 University Extension Specialist Relationship Specialty Start Date End Date Kervin Gunter MD [address] [place] [address] PCP - General Family Medicine 06/01/23 Katalina Colbert NP [address] [place] [address] Nurse Practitioner Family Medicine 03/06/23 University Extension Specialist Relationship Specialty Start Date End Date Kervin Gunter MD [address] [place] [address] PCP - General Family Medicine 06/01/23 Katalina Colbert NP [address] [place] [address] Nurse Practitioner Family Medicine 03/06/23 University Extension Specialist Relationship Specialty Start Date End Date Katalina Colbert CNP PCP - General Family Medicine 11/26/14 Zion Pringle MD Radiation Oncology 05/28/20 University Extension Specialist Relationship Specialty Start Date End Date Kervin Gunter MD [address] [place] [address] PCP - General Family Medicine 06/01/23 Katalina Colbert NP [address] [place] [address] Nurse Practitioner Family Medicine 03/06/23 University Extension Specialist Relationship Specialty Start Date End Date Kervin Gunter MD [address] [place] [address] PCP - General Family Medicine 06/01/23 Katalina Colbert, OPTICAL GLASS INSPECTOR [address] [place] [address] Nurse Practitioner Family Medicine 03/06/23 University Extension Specialist Relationship Specialty Start Date End Date Kervin Gunter MD [address] [place] [address] PCP - General 08/11/17 University Extension Specialist Relationship Specialty Start Date End Date Kervin Gunter MD [address] [place] [address] PCP - General 08/11/17 University Extension Specialist Relationship Specialty Start Date End Date Katalina Colbert CNP PCP - General Family Medicine 11/26/14 Zion Pringle MD [address] [place] [address] [place] [address] Radiation Oncology 05/28/20 University Extension Specialist Relationship Specialty Start Date End Date Kervin Gunter MD [address] [place] [address] PCP - General Family Medicine 06/01/23 Katalina Colbert, NETTIE [address] [place] [address] Nurse Practitioner Family Medicine 03/06/23 University Extension Specialist Relationship Specialty Start Date End Date Kervin Gunter MD [address] [place] [address] PCP - General Family Medicine 06/01/23 Katalina Colbert NP [address] [place] [address] Nurse Practitioner Family Medicine 03/06/23 University Extension Specialist Relationship Specialty Start Date End Date Kervin Gunter MD [address] [place] [address] PCP - General Family Medicine 06/01/23 Katalina Colbert NP [address] [place] [address] Nurse Practitioner Family Medicine 03/06/23 University Extension Specialist Relationship Specialty Start Date End Date Kervin Gunter MD [address] [place] [address] PCP - General Family Medicine 06/01/23 Katalina Colbert NP [address] [place] [address] Nurse Practitioner Family Medicine 03/06/23 University Extension Specialist Relationship Specialty Start Date End Date Kervin Gunter MD [address] [place] [address] PCP - General Family Medicine 06/01/23 Katalina Colbert NP [address] [place] [address] Nurse Practitioner Family Medicine 03/06/23 University Extension Specialist Relationship Specialty Start Date End Date Kervin Gunter MD [address] [place] [address] PCP - General Family Medicine 06/01/23 Katalina Colbert NP [address] [place] [address] Nurse Practitioner Family Medicine 03/06/23 University Extension Specialist Relationship Specialty Start Date End Date Kervin Gunter MD [address] [place] [address] PCP - General Family Medicine 06/01/23 Katalina Colbert NP [address] [place] [address] Nurse Practitioner Family Medicine 03/06/23 University Extension Specialist Relationship Specialty Start Date End Date Kervin Gunter MD [address] [place] [address] PCP - General Family Medicine 06/01/23 Katalina Colbert NP [address] [place] [address] Nurse Practitioner Family Medicine 03/06/23 University Extension Specialist Relationship Specialty Start Date End Date Katalina Colbert CNP PCP - General Family Medicine 11/26/14 Zion Pringle MD [address] [place] [address] [place] [address] Radiation Oncology 05/28/20 University Extension Specialist Relationship Specialty Start Date End Date Kervin Gunter MD [address] [place] [address] PCP - General Family Medicine 06/01/23 Katalina Colbert NP [address] [place] [address] Nurse Practitioner Family Medicine 03/06/23 University Extension Specialist Relationship Specialty Start Date End Date Kervin Gunter MD [address] [place] [address] PCP - General Family Medicine 06/01/23 Katalina Colbert NP [address] [place] [address] Nurse Practitioner Family Medicine 03/06/23 University Extension Specialist Relationship Specialty Start Date End Date Kervin Gunter MD [address] [place] [address] PCP - General Family Medicine 06/01/23 Katalina Colbert NP [address] [place] [address] Nurse Practitioner Family Medicine 03/06/23 University Extension Specialist Relationship Specialty Start Date End Date Kervin Gunter MD [address] [place] [address] PCP - General Family Medicine 06/01/23 Katalina Colbert NP [address] [place] [address] Nurse Practitioner Family Medicine 03/06/23 University Extension Specialist Relationship Specialty Start Date End Date Kervin Gunter MD [address] [place] [address] PCP - General Family Medicine 06/01/23 Katalina Colbert NP [address] [place] [address] Nurse Practitioner Family Medicine 03/06/23 University Extension Specialist Relationship Specialty Start Date End Date Kervin Gunter MD [address] [place] [address] PCP - General Family Medicine 06/01/23 Katalina Colbert NP [address] [place] [address] Nurse Practitioner Family Medicine 03/06/23 University Extension Specialist Relationship Specialty Start Date End Date Kervin Gunter MD [address] [place] [address] PCP - General Family Medicine 06/01/23 Katalina Colbert NP [address] [place] [address] Nurse Practitioner Family Medicine 03/06/23 University Extension Specialist Relationship Specialty Start Date End Date Kervin Gunter MD [address] [place] [address] PCP - General Family Medicine 06/01/23 Katalina Colbert NP [address] [place] [address] Nurse Practitioner Family Medicine 03/06/23 University Extension Specialist Relationship Specialty Start Date End Date Kervin Gunter MD [address] [place] [address] PCP - General Family Medicine 06/01/23 Katalina Colbert NP [address] [place] [address] Nurse Practitioner Family Medicine 03/06/23 INFORMATION SOURCE (unrecogn ized section and content) DATE CREATED AUTHOR 10/17/2022 [facility] DATE CREATED AUTHOR AUTHOR'S ORGANIZ ATION 09/14/2023 [facility] DATE CREATED AUTHOR AUTHOR'S ORGANIZ ATION 10/01/2023 [facility] DATE CREATED AUTHOR AUTHOR'S ORGANIZ ATION 12/01/2024 [facility] DATE CREATED AUTHOR AUTHOR'S ORGANIZ ATION 01/22/2025 [facility] DATE CREATED AUTHOR AUTHOR'S ORGANIZ ATION 01/28/2025 [facility] EPIC FOR RECORDS PERTAINING [...] BE BASED ON THE PRIMARY CLINICAL RECORDS. [facility]. provides no warranty or guarantee of the accuracy or completeness of information in this document.
--- NOTE | 2025-01-30 13:40 | XR_ITS ---
The [address] [address] Patient Name: DEMETRA HUTCHINS MRN: [id number] date: 1965 Sex: F Assigned Patient Location: [facility] Current Patient Location: CARD Accession/Order Number: [id number] Exam Date: 01/30/2025 13:30 Report Date: 01/30/2025 13:58 At the request of: DEMETRA XIONG NP Procedure: XR knee LT 4V LEFT KNEE - 5 views COMPARISON: None CLINICAL DATA: Patient fell a month ago injuring left knee. Previous knee replacement. AP, lateral, both oblique and patellar views were obtained. There is osteopenia. Patient has a knee prosthesis. The hardware appears intact and in appropriate position. No acute fracture or dislocation is identified. There is no significant knee effusion or focal soft tissue swelling. XR/XR knee LT 4V IMPRESSION: SATISFACTORY APPEARANCE OF KNEE PROSTHESIS. NO ACUTE BONY INJURY. Impression dictated by: Annia Chandler M.D. 01/30/2025 1:58 PM Dictation Location: [facility] Electronically authenticated by: [id number] Y Date: 01/30/2025 13:58
== END 2025-01-30 13:24 | disposition home or self-care (01) ==
LOC: RAD 13:23
PROVIDERS: PCP Nurse Practitioner; Visit Provider Nurse Practitioner
DX: S80.02XA Contusion of left knee, initial encounter (principal); Z96.652 Presence of left artificial knee joint
CPT/HCPCS: 73564

== ENCOUNTER 2025-01-31 07:46 | Outpatient (OUT) | payer OTHER, SELFPAY ==
--- OUTSIDE RECORDS SUMMARY | 2025-01-14 15:30 | XMS_ITS | Encounter Summary ---
Author Organization [facility] Address [address] [place] [address] Care Team Providers Care [employer] Lead Name Role Phone Katalina Colbert MD Primary Care Provider [phone] Encounter Details Date Type Department Care Team (Late st Contact Info) Description 01/14/2025 3:30 PM EDT Office Visit [facility] Heart at [facility] [address] [place] [address] Emeterio Tuttle MD [address] [facility] [address] [facility] [place] [address] Other chest pain (Primary Dx); Cardiovascular stress test abnormal; Shortness of breath; Primary hypertension; Mixed hyperlipidemia; KARINE (obstructive sleep apnea) Social History Tobacco Use Types Packs/Day Years Used Date Smoking Tobacco: Former Cigarettes Smokeless Tobacco: Never Tobacco Cessation:Counseling Given: Not Answered Alcohol Use Standard Drinks/Week Comments Yes 0 (1 standard drink = 0.6 oz pur e alcohol) occasional Comments Unknown Sex and Gender Information Value Date Recorded Sex Assigned at Female 01/14/2025 2:39 PM EDT Legal Sex Female 12:31 AM EDT Gender Identity Female 01/14/2025 2:39 PM EDT Sexual Orientation Heterosexual or Straight 01/04 2:39 PM EDT documented as of this encounter Last Filed Vital Signs Vital Sign Reading Time Taken Comments Blood Pressure 114/72 01/14/2025 4:12 PM EDT Pulse 88 01/14/2025 4:12 PM EDT Temperature - - Respiratory Rate - - Oxygen Saturation 98% 01/14/2025 4:12 PM EDT Inhaled Oxygen Concentration - - Weight 127 kg (280 lb) 01/14/2025 4:12 PM EDT Height 162.6 cm (5' 4 ) 01/14/2025 4:12 PM EDT Body Mass Index 48.06 01/14/2025 4:12 PM EDT documented in this encounter Progress Notes * Emeterio Tuttle MD - 01/14/2025 3:30 PM EDT Images from the original note were not included. [place] [facility] - [facility] Subjective Katalina Ernst is a 59 y.o. year old female patient being seen to establish care with cardiology. Patient recently had an abnormal stress test. Patient is having Echo on the . Patient states she has RED, SOB, lightheaded/dizziness with position changes, patient had syncopal episode in December. Patient denies palpitations/racing heart, chest pain, Patient Active Problem List Diagnosis Abnormal stress test Allergic rhinitis Anxiety and depression Arthritis of knee, right Bicipital tendinitis Bilateral lower extremity edema Cervicalgia Chest pain of unknown etiology Class 3 severe obesity due to excess calories with serious comorbidity and body mass index (BMI) of50.0 to 59.9 in adult Contusion of right knee Encounter for screening mammogram for malignant neoplasm of breast Essential hypertension Hidradenitis suppurativa of multiple sites History of rectal polyps Left foot pain Lumbar back pain with radiculopathy affecting left lower extremity Mixed hyperlipidemia Multinodular goiter KARINE (obstructive sleep apnea) Other chronic pain Papillary thyroid carcinoma (CMS/HCC) Postoperative hypothyroidism Rotator cuff (capsule) sprain Thyroid cancer (CMS/HCC) Type 2 diabetes mellitus (CMS/HCC) Uncontrolled type 2 diabetes mellitus 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, with long-term current use of insulin (CMS/HCC) Vitamin D deficiency Yeast infection of the vagina Family History Problem Relation Name Age of Onset Parkinsonism Mother Coronary artery disease Mother Coronary artery disease Father Social History Tobacco Use Smoking status: Former Types: Cigarettes Smokeless tobacco: Never Substance Use Topics Alcohol use: Yes Comment: occasional Drug use: Never HPI Katalina is seen as a new patient for evaluation of chest pain and abnormal stress test. she is a 59-year-old woman with history of hypertension, hyperlipidemia, diabetes all on treatment.She has strong family history of coronary artery disease and she is an ex-smoker. She was evaluated on October 30, 2024 in the emergency room at the [facility] because of chest pain. Her ECG did not show acute abnormalities. Her high- sensitivity troponin was negative. She reports the chest pain to have occurred in the center of the chest with radiation to the surrounding area initially to the right but then to the left. This is when she got very worried and the severity of the pain got worse and this led her to be in the emergency room where she got evaluated. The pain subsided and she was discharged from the emergency room. She then underwent a stress test that showed evidence of inferior and inferolateral ischemia. She is supposed to undergo an echocardiogram soon. She has history of thyroid cancer s/p thyroidectomy. In addition she reports shortness of breath on exertion NYHA class II symptoms. She has no significant lower extremity edema. She feels occasional dizziness and lightheadedness. Review of Systems Cardiovascular: Positive for chest pain, dyspnea on exertion and syncope. Respiratory: Positive for shortness of breath. Neurological: Positive for dizziness and light-headedness. Objective Visit Vitals BP 114/72 (BP Location: Right arm, Patient Position: Sitting) Pulse 88 Ht 1.626 m (5' 4 ) Wt 127 kg (280 lb) SpO2 98% BMI 48.06 kg/m?? Smoking Status Former BSA 2.4 m?? Physical Exam Constitutional: Appearance: She is well-developed. She is obese. She is not ill-appearing. HENT: Head: Normocephalic and atraumatic. Nose: Nose normal. Eyes: General: No scleral icterus. Pupils: Pupils are equal, round, and reactive to light. Neck: Thyroid: No thyromegaly. Vascular: No JVD. Cardiovascular: Rate and Rhythm: Normal rate and regular rhythm. Pulses: Radial pulses are 2+ on the right side and 2+ on the left side. Heart sounds: Normal heart sounds. No murmur heard. No friction rub. No gallop. Pulmonary: Effort: Pulmonary effort is normal. No respiratory distress. Breath sounds: Normal breath sounds. No wheezing or rales. Chest: Chest wall: No tenderness. Abdominal: General: Bowel sounds are normal. There is no distension. Palpations: Abdomen is soft. Tenderness: There is no abdominal tenderness. Musculoskeletal: General: No swelling. Cervical back: Neck supple. Skin: General: Skin is warm and dry. Neurological: General: No focal deficit present. Mental Status: She is alert and oriented to person, place, and time. Psychiatric: Mood and Affect: Mood normal. Behavior: Behavior is cooperative. Judgment: Judgment normal. Allergies Allergies Allergen Reactions Adhesive Rash Latex Rash Medications Current Outpatient Medications: aspirin 81 mg EC tablet, Take 81 mg by mouth in the morning., Disp: , Rfl: cholecalciferol (Vitamin D-3) 25 MCG (1000 UT) capsule, Take 1 capsule by mouth in the morning., Disp: , Rfl: DULoxetine (Cymbalta) [address] capsule, Take 60 mg by mouth in the morning., Disp: , Rfl: fexofenadine (Yolanda) 180 mg tablet, Take 180 mg by mouth if needed each day., Disp: , Rfl: fluticasone (Flonase) 50 mcg/actuation nasal spray, Administer 2 sprays into each nostril in the morning., Disp: , Rfl: hydroCHLOROthiazide (Microzide) 12.5 mg capsule, Take 12.5 mg by mouth in the morning., Disp: , Rfl: ibuprofen 800 mg tablet, Take 800 mg by mouth every 12 (twelve) hours., Disp: , Rfl: insulin glargine-yfgn (Semglee) 100 unit/mL (3 mL) insulin pen, Inject 100 Units under the skin at bedtime., Disp: , Rfl: Januvia 100 mg tablet, Take 100 mg by mouth in the morning., Disp: , Rfl: Lantus Solostar U-100 Insulin 100 unit/mL (3 mL) injection pen, Inject 100 Units under the skin at bedtime., Disp: , Rfl: levothyroxine (Synthroid, Levoxyl) 200 mcg tablet, Take 200 mcg by mouth in the morning., Disp: , Rfl: losartan (Cozaar) 100 mg tablet, Take 100 mg by mouth in the morning., Disp: , Rfl: metFORMIN (Glucophage) 1,000 mg tablet, Take 1,000 mg by mouth twice a day., Disp: , Rfl: norethindrone ac-eth estradioL (Femhrt Low Dose) 0.5-2.5 mg-mcg tablet, Take 1 tablet by mouth in the morning., Disp: , Rfl: simvastatin (Zocor) 5 mg tablet, Take 5 mg by mouth at bedtime., Disp: , Rfl: tiZANidine (Zanaflex) 4 mg tablet, Take 4 mg by mouth if needed each day., Disp: , Rfl: albuterol 90 mcg/actuation inhaler, Inhale 2 puffs every 4 (four) hours if needed. (Patient not taking: Reported on 01/14/2025), Disp: , Rfl: metoprolol succinate XL (Toprol-XL) 25 mg 24 hr tablet, Take 1 tablet (25 mg) by mouth in the morning. Do not crush or chew., Disp: 90 tablet, Rfl: 3 Recent Labs Blood testing 11/02/2024: Hemoglobin 12.1, platelets 203, potassium 4.5, BUN 16, creatinine 0.93, EGFR more than 60, LFTs normal. TSH 0.499. Imaging and other tests Stress test 01/01/2025: Abnormal myocardial perfusion nuclear stress test showing evidence of inferior ischemia extending to inferior lateral and inferoseptal regions. Normal left ventricular systolic function, ejection fraction 55%. No transient ischemic dilatation, TID 1.0. No ischemia by EKG following injection of Lexiscan. ECG 10/30/2024: Sinus rhythm, normal ECG. Assessment/Plan Diagnoses and all orders for this visit: Other chest pain - metoprolol succinate XL (Toprol-XL) 25 mg 24 hr tablet; Take 1 tablet (25 mg) by mouth in the morning. Do not crush or chew. - Basic metabolic panel; Future - Case Request Real Estate Leasing Manager: Coronary angiography, Right heart cath - CBC and differential; Future Cardiovascular stress test abnormal - metoprolol succinate XL (Toprol-XL) 25 mg 24 hr tablet; Take 1 tablet (25 mg) by mouth in the morning. Do not crush or chew. - Basic metabolic panel; Future - Case Request Real Estate Leasing Manager: Coronary angiography, Right heart cath - CBC and differential; Future Shortness of breath - Basic metabolic panel; Future - Case Request Real Estate Leasing Manager: Coronary angiography, Right heart cath - CBC and differential; Future Primary hypertension Mixed hyperlipidemia KARINE (obstructive sleep apnea) I went over her symptoms of chest pain and shortness of breath and her abnormal stress test in light of her multiple risk factors for coronary artery disease. I explained to her the potential causes of the symptoms and the abnormal stress test in particular the possibility of significantly obstructive coronary artery disease. I will proceed with cardiac catheterization with right heart catheterization and coronary angiography given chest pain, dyspnea, and abnormal stress test. I have explained to her the procedure with risks and benefits, including risks of heart attack, stroke and , as well as contrast nephropathy and radiation injury. she understands and agrees. I will proceed from the left radial artery and right internal jugular vein access site. I have started her on metoprolol succinate 25 mg once daily. I will review her echocardiogram that she will have on 01/17/2025. I will plan on seeing her in follow-up after the procedure. No follow-ups on file. Emeterio Tuttle MD documented in this encounter Plan of Treatment Upcoming Encounters Date Type Department Care Team (Late st Contact Info) Description 02/22/2025 9:30 AM EDT Hospital Encounter [facility] Heart and Vascular Center Vascular Lab [address] [place] [address] Emeterio Tuttle MD [address] [facility] [address] [place] [address] Other chest pain; Cardiovascular stress test abnormal; Shortness of breath 02/22/2025 9:30 AM EDT - 02/22/2025 10:30 AM EDT Surgery [facility] Heart and Vascular Center Vascular Lab [address] [place] [address] Emeterio Tuttle MD [address] [place] [address] Coronary angiography Scheduled Orders Name Type Priority Associated Diagnoses Orde r Schedule Basic metabolic panel Lab Routine Other chest pain Cardiovascular stress test abnormal Shortness of breath Expected: 01/14/2025 (Approximate), Expires: 01/14/2026 CBC and differential Lab Routine Other chest pain Cardiovascular stress test abnormal Shortness of breath Expected: 01/14/2025 (Approximate), Expires: 01/14/2026 documented as of this encounter Visit Diagnoses Diagnosis Other chest pain- Primary Cardiovascular stress test abnormal Shortness of breath Primary hypertension Unspecified essential hypertension Mixed hyperlipidemia KARINE (obstructive sleep apnea) Obstructive sleep apnea (adult) (pediatric) Other chest pain Cardiovascular stress test abnormal Shortness of breath Other chest pain Cardiovascular stress test abnormal Shortness of breath documented in this encounter Care Teams [employer] Lead Relationship Specialty Start Date End Date Katalina Colbert MD [address] [place] [address] PCP - General Nurse Practitioner 01/14/25 documented as of this encounter
--- OUTSIDE RECORDS SUMMARY | 2025-01-22 15:30 | XMS_ITS | Encounter Summary ---
Author Organization [facility] Address [address] [place] [address] Care Team Providers Care Mend Worker Name Role Phone Katalina Colbert POEM WRITER Unavailable [phone] Kervin Stevens MD Primary Care Provider [phone] Reason for Visit * Reason Comments Follow-up Encounter Details Date Type Department Care Team (Late st Contact Info) Description 01/22/2025 3:30 PM EDT Office Visit [facility] [address] [place] [address] Alexa Pulliam CNM [address] [place] [address] Hot flashes (Primary Dx) Social [...] How often do you attend chur or restorationist services? More than 4 times per year 08/13/2024 Do you belong to any clubs o r organizations such as buddhist groups, unions, fraternal or athletic groups, or [...] and heating? Somewhat hard 08/13/2024 [facility] of Occupat ional Health - Occupational Stress [...] place to sleep or slept in a alf (including now)? No 06/02/2023 Housing Stability Vital Sign Answer Emanuel e Recorded In the last 12 months, was t here a time when you were not able to pay the mortgage or rent on time? No 08/13/2024 In the past 12 months, how m any times have you moved where you were living? 0 08/13/2024 At any time in the past [address] [facility], were you homeless or living in a alf (including now)? No 08/13/2024 Comments No Sex [...] Ernst is 59 y.o. 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 CABALLERO TOTAL THYROIDECTOMY 03/25/2020 at [facility]: papillary carcinoma 1/2 nodes positive in [...] Harpreet Supraventricular tachycardia Father Harpreet Obesity Father Ahrpreet Hypersomnolence Father Harpreet No Known Problems Sister No Known Problems Maternal Grandmother Heart attack Maternal Grandfather Cancer Paternal Grandmother Breast cancer Alzheimer's disease Paternal Grandfather [email or web address] Allergies: Allergies Allergen Reactions Wound Dressing Adhesive [...] mouth Daily 30 tablet 2 ReliOn Pen [place] 31G X 6 MM misc Inject 1 [...] has heart blockage and going to the general labor in a week or so. Patient met a man online from [place] and she is maybe going to move to [place] with him. I did advise her to make her health appts first and risk and insurance manager appt is a priority before she would move. PVU. No follow-ups on file. There are no Patient Instructions on file for this visit. Darlin Covington MA,01/22/2025 3:36 PM documented in this encounter Plan of Treatment Upcoming Encounters Date Type Department Care Team (Late st Contact Info) Description 02/05/2025 11:30 AM EDT Office Visit [facility] [address] [address] Katalina Colbert NP [address] [place] [address] 05/15/2025 1:00 PM EST Office Visit [facility] [address] [facility] [address] Alexa Pulliam CNM [address] [place], [place] [id number] documented as of this encounter Goals Goal [...] documented as of this encounter Care Teams Mend Worker Relationship Specialty Start Date End Date Kervin Stevens MD [address] [place] [phone] PCP - General Family Medicine 06/01/23 Katalina Colbert NP [address] [place] [phone] Nurse Practitioner Family Medicine 03/06/23 documented as of this encounter
--- OUTSIDE RECORDS SUMMARY | 2025-01-31 07:49 | XMS_ITS | Encounter Summary ---
Author Organization [facility] Address [address] [place] [address] Care Team Providers Care Outside Medical Sales Representative Name Role Phone Katalina Colbert MD Primary Care Provider [phone] Encounter Details Date Type Department Care Team (Late st Contact Info) Description 01/14/2025 Orders Only [facility] [address] [place] [address] ProviderIvana MD [facility] [place] [address] Social History Tobacco Use Types [...] Description 02/22/2025 9:30 AM EDT Hospital Encounter [facility] Lab [address] [place] [address] Emeterio Tuttle MD [address] [facility] [address] [facility] [place] [address] Other chest pain; Cardiovascular stress test abnormal; Shortness of breath 02/22/2025 9:30 AM EDT - 02/22/2025 10:30 AM EDT Surgery [facility] [address] [place] [address] Emeterio Tuttle MD [address] [facility] [facility] [place] [address] Coronary angiography documented as of this encounter [...] on filedocumented in this encounter Care Teams Outside Medical Sales Representative Relationship Specialty Start Date End Date Katalina Colbert MD [address] [place] [address] PCP - General Nurse Practitioner 01/14/25 documented as of this encounter
--- OUTSIDE RECORDS SUMMARY | 2025-01-31 07:49 | XMS_ITS | Encounter Summary ---
Author Organization [facility] Address [address] [place] [address] Care Team Providers Care Machine I Trimmer Name Role Phone Katalina Colbert PUMP AND STILL OPERATOR Unavailable [phone] Kervin Stevens MD Primary Care Provider [phone] Encounter Details Date Type Department Care Team (Late st Contact Info) Description 10/30/2024 Orders Only [facility] [address] [place] [address] Katalina Colbert, NETTIE [address] [place] [address] Social History Tobacco Use Types Packs/Day Years [...] How often do you attend chur or scientology services? More than 4 times per year 08/13/2024 Do you belong to any clubs o r organizations such as scientology groups, unions, fraternal or athletic groups, or [...] medical care, and heating? Somewhat hard 08/13/2024 [facility] Occupat ional [...] any time in the past 12 m [facility], were you homeless or living in a [place] health care facility (including now)? No 08/13/2024 Comments Unknown Sex [...] [facility] [address] [place] [address] Katalina Colbert NP [address] [place] [address] 05/15/2025 1:00 PM EST Office Visit [facility] [address] [place] [address] Alexa Pulliam CNM [address] [place], [place] [phone] documented as of this encounter Procedures Procedure Name Priority Date/Time Associated Diagnosis Comments XR CHEST 1 VIEW Routine 10/30/2024 2:36 PM EDT documented in this encounter Results * XR chest 1 view (10/30/2024 2:36 PM EDT) Anatomical Region Laterality Modality Chest Radiographic Cris ging us Katalina Colbert PUMP AND STILL OPERATOR IMG XR PROCEDURES Final Result documented in this encounter Visit Diagnoses Not on filedocumented in this encounter Care Teams Machine I Trimmer Relationship Specialty Start Date End Date Kervin Stevens MD [address] [place] [address] PCP - General Family Medicine 06/01/23 Katalina Colbert NP [address] [place] [address] Nurse Practitioner Family Medicine 03/06/23 documented as of this encounter
--- OUTSIDE RECORDS SUMMARY | 2025-01-31 07:49 | XMS_ITS | Encounter Summary ---
Author Organization [facility] Address [address] [place] [address] Care Team Providers Care Coverstitch Machine Operator Name Role Phone Katalina Colbert PLANT MAINTENANCE TECHNICIAN Unavailable [phone] Kervin Stevens MD Primary Care Provider [phone] Encounter Details Date Type Department Care Team (Late st Contact Info) Description 01/22/2024 Clinisync Result Encounter [facility] External Department Unsolicited Katalina Colbert, NETTIE [address] [place] [address] Social History Tobacco Use Types Packs/Day Years [...] often do you attend chur ch or faith services? More than 4 times per year [...] medical care, and heating? Somewhat hard 06/02/2023 [facility] of Occupat [...] 02/05/2025 11:30 AM EDT [facility] [address] [place] [address] Katalina Colbert NP [address] [place] [address] 05/15/2025 1:00 PM EST Office Visit [facility] [address] [place] [address] Alexa Pulliam CNM [address] [place] [address] documented as of this encounter Procedures Procedure Name Priority Date/Time Associated Diagnosis Comments XR LUMBAR SPINE 2 OR 3V 01/22/2024 9:39 AM EDT documented in this encounter Results * XR LUMBAR SPINE 2 OR 3V (01/22/2024 9:39 AM EDT) Anatomical Region Laterality Modality Radiographic Cris ging 01/22/2024 9:39 AM EDT Narrative 01/22/2024 9:42 AM EDT [address] [address] XRay Report Signed Patient: KATALINA HUTCHINS MR#: [id number] : 1965 Acct:[id number] Age/Sex: 58 / F ADM Date: 01/18/24 Loc: RAD Attending Dr: Katalina Colbert PLANT MAINTENANCE TECHNICIAN Ordering Physician: Katalina Colbert NP Date of Service: 01/18/24 Procedure(s): XR lumbar spine 2-3V Accession Number(s): [id number] cc: Katalina Colbert NP [place] [address] Patient Name: KATALINA HUTCHINS MRN: [id number] date: 1965 Sex: F Assigned Patient Location: [facility] Current Patient Location: [facility] Accession/Order Number: [id number] Exam Date: 01/18/2024 18:20 Report Date: 01/22/2024 [...] Horne M.D. Signed By: 01/22/2442 DD/ TD/TT: Energy Rater: Procedure Note Radiology, Radiologist, MD - 01/22/2024 The [place] [id number] XRay Report Signed Patient: KATALINA HUTCHINS MMR#: [id number] : 1965Acct:[id number] Age/Sex: 58 / FADM Date: 01/18/24 Loc: RAD Attending Dr: Katalina Colbert PLANT MAINTENANCE TECHNICIAN Ordering Physician: Katalina Colbert NP Date of Service: 01/18/24 Procedure(s): XR lumbar spine 2-3V Accession Number(s): [id number] cc: Katalina Colbert NP The [place] [id number] Patient Name: KATALINA HUTCHINS MRN: [id number] date: 1965 Sex: F Assigned Patient Location: [facility] Current Patient Location: [facility] Accession/Order Number: [id number] Exam Date: 01/18/2024 18:20 Report Date: 01/22/2024 [...] LIV HORNE Date: 01/22/2024 09:39 Dictated By: Lvi Horne M.D. Signed By:01/22/2442 DD/ TD/TT: Energy Rater: Katalina Colbert PLANT MAINTENANCE TECHNICIAN IMG XR PROCEDURES Final Result documented in this encounter Visit Diagnoses Not on filedocumented in this encounter Care Teams Coverstitch Machine Operator Relationship Specialty Start Date End Date Kervin Stevens MD [address] [place] [address] PCP - General Family Medicine 06/01/23 Katalina Colbert NP [address] [place] [address] Nurse Practitioner Family Medicine 03/06/23 documented as of this encounter
--- OUTSIDE RECORDS SUMMARY | 2025-01-31 07:49 | XMS_ITS | Encounter Summary ---
Author Organization [facility] Address [address] [place] [address] Care Team Providers Care Manager Community Outreach Name Role Phone Katalina Colbert MEDICAL RECORD TRANSCRIBER Unavailable [phone] Kervin Stevens MD Primary Care Provider [phone] Encounter Details Date Type Department Care Team (Late st Contact Info) Description 01/23/2024 Orders Only [facility] [address] [place] [address] Katalina Colbert, NETTIE [address] [place] [address] Social History Tobacco Use Types Packs/Day Years [...] How often do you attend chur or jainism services? More than 4 times per year 06/02/2023 Do you belong to any clubs o r organizations such as faith groups, unions, fraternal or athletic groups, or [...] medical care, and heating? Somewhat hard 06/02/2023 [facility] Occupat ional Health - Occupational [...] place to sleep or slept in a residential (including now)? No 06/02/2023 Comments Unknown Sex [...] Visit [facility] [address] [place] [address] Katalina Colbert NP [address] [place] [address] 05/15/2025 1:00 PM EST Office Visit [facility] [address] [place] [address] Alexa Pulliam CNM [address] [place] [address] documented as of this encounter [...] filedocumented in this encounter Care Teams Manager Community Outreach Relationship Specialty Start Date End Date Kervin Stevens MD [address] [place] [address] PCP - General Family Medicine 06/01/23 Katalina Colbert NP [address] [place] [address] Nurse Practitioner Family Medicine 03/06/23 documented as of this encounter
--- OUTSIDE RECORDS SUMMARY | 2025-01-31 07:49 | XMS_ITS | Encounter Summary ---
Author Organization [facility] Address [address] [place] [address] [place] [address] Care Team Providers Care Screening Unit Registered Nurse Name Role Phone Katalina Colbert QUARTZ CUTTER Unavailable [phone] Kervin Stevens MD Primary Care Provider [phone] Encounter Details Date Type Department Care Team (Late st Contact Info) Description 05/14/2024 Orders Only [facility] [address] [place] [address] Sarah Khan MD [address] [place] [address] Social History Tobacco Use Types Packs/Day Years [...] often do you attend chur ch or yazidi services? More than 4 times per year 06/02/2023 Do you belong to any clubs o r organizations such as quaker groups, unions, fraternal or athletic groups, or [...] medical care, and heating? Somewhat hard 06/02/2023 [facility] Occupat ional Health - Occupational Stress [...] place to sleep or slept in a senior living (including now)? No 06/02/2023 Comments Unknown Sex [...] Visit [facility] [address] [place] [address] Katalina Colbert NP [address] [place] [address] 05/15/2025 1:00 PM EST Office Visit [facility] [address] [place] [address] Alxea Pulliam CNM [address] [place] [address] documented as of this encounter Procedures Procedure Name Priority Date/Time Associated Diagnosis Comments DIABETES EYE EXAM Routine 05/14/2024 7:46 AM EST documented in this encounter Results * Diabetes Eye Exam (05/14/2024 7:46 AM EST) us Sarah Khan MD HEALTH MAINTENANCE Final Resu lt documented in this encounter Visit Diagnoses Not on filedocumented in this encounter Care Teams Screening Unit Registered Nurse Relationship Specialty Start Date End Date Kervin Stevens MD [address] [place] [address] PCP - General Family Medicine 06/01/23 Katalina Colbert NP [address] [place] [address] Nurse Practitioner Family Medicine 03/06/23 documented as of this encounter
--- OUTSIDE RECORDS SUMMARY | 2025-01-31 07:49 | XMS_ITS | Encounter Summary ---
Author Organization [facility] Address [address] [place] [address] Care Team Providers Care Theatrical Dresser Name Role Phone Katalina Colbert INSPECTOR MULTIFOCAL LENS Unavailable [phone] Kervin Stevens MD Primary Care Provider [phone] Encounter Details Date Type Department Care Team (Late st Contact Info) Description 01/02/2025 Orders Only [facility] [address] [place] [address] Katalina Colbert NP [address] [place] [address] Social History Tobacco Use Types Packs/Day Years [...] How often do you attend chur or zoroastrian services? More than 4 times per year 08/13/2024 Do you belong to any clubs o r organizations such as tenriism groups, unions, fraFlare3d or athletic groups, or school groups? No [...] medical care, and heating? Somewhat hard 08/13/2024 [facility] Occupat ional Health - Occupational [...] to sleep or slept in a senior care (including now)? No 06/02/2023 Housing Stability Vital Sign Answer Emanuel e Recorded In the last 12 months, was t here a time when you were not able to pay the mortgage or rent on time? No 08/13/2024 In the past 12 months, how m any times have you moved where you were living? 0 08/13/2024 At any time in the past 12 m [facility], were you homeless or living in a senior care (including now)? No 08/13/2024 Comments No Sex [...] 11:30 AM EDT Office Visit [facility] [address] [place] [address] Katalina Colbert NP [address] [place] [address] 05/15/2025 1:00 PM EST Office Visit [facility] [address] [place] [address] Alexa Pulliam CNM [address] [facility], [place] [address] documented as of this encounter Procedures Procedure [...] on filedocumented in this encounter Care Teams Theatrical Dresser Relationship Specialty Start Date End Date Kervin Stevens MD [address] [place] [address] PCP - General Family Medicine 06/01/23 Katalina Colbert NP [address] [place] [address] Nurse Practitioner Family Medicine 03/06/23 documented as of this encounter
--- OUTSIDE RECORDS SUMMARY | 2025-01-31 07:49 | XMS_ITS | Clinical Summary ---
Author Organization [facility] Address [address] [place] [address] Care Team Providers Care [employer] Name Role Phone Katalina Colbert CHEMICAL ETCHING PROCESSOR Unavailable [phone] Kervin Stevens MD Primary Care Provider [phone] Allergies Active Allergy Reactions Criticality Noted Date [...] 2 diabetes mellitus 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, unspecified whether prison insulin use (HCC) INJECT 15-20-25 UNITS ACCORDING TO MEAL SIZE PLUS ISS #3 (MAX DAILY DOSE OF 100 UNITS) 105 mL 024 Active fluticasone (Flonase) 50 MCG/ACT nasal sprayIndications: Allergic rhinitis, unspecified seasonality, unspecified trigger Administer 2 sprays into each nostril Daily 48 g 1 024 Active ReliOn Pen [place] 31G X 6 MM misc Inject 1 each under the skin in the morning and 1 each at noon and 1 each in the evening and 1 each before bedtime. 025 Active insulin glargine (Lantus SoloStar) 100 UNIT/ML penIndications:Ty pe 2 diabetes mellitus 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, unspecified whether prison insulin use (HCC) Inject 60 Units under [...] 2 diabetes mellitus 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, unspecified whether prison insulin use (HCC) Take 1 tablet by mouth once daily 90 tablet Active losartan (Cozaar) 100 MG tabletIndications :Essential hypertension Take 1 tablet (100 mg) by mouth Daily 90 tablet 2024 Active metFORMIN (Glucophage) 1000 MG tabletIndications :Uncontrolled type 2 diabetes mellitus 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, with long-term current use of insulin ([facility]) Take 1 tablet (1,000 mg) by mouth [...] 2 diabetes mellitus 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, unspecified whether prison insulin use (HCC) Take 1 tablet by [...] factors; uncontrolled DM, HTN, family hx CAD, OK Would recommend ordering stress test CANNOT walk [...] have tissue biopsy. She was referred to print shop stenographer at that time, she did not attend the appt either She is no having any pelvic pain and is not having any abnormal uterine bleeding either. I have discussed this in the past with pt, and the need to have this completed, she is willing to get this completed, and I will refer to [facility] for evaluation Encounter for screening mamm ogram [...] compliant use can increase risk for stroke, OK, HTN, sudden Assessment & Plan (02/08/2024 2:40 [...] Encounters Date Type Department Care Team Description 01/30/2025 Clinisync Result Encounter [facility] External Department Unsolicited Katalina Colbert NP 01/29/2025 Travel 01/22/2025 3:30 PM EDT Office Visit [facility] [address] [place] [address] Alexa Pulliam CNM Hot flashes (Primary Dx) 01/22/2025 Bamboo flowsheet [facility] [address] [place] [address] Alexa Pulliam CNM 01/16/2025 Results Follow-Up [facility] [address] [place] [address] NM GAMALIEL PERF SPECT REST STR 01/13/2025 [facility] [address] [place] [address] Katalina Colbert NP Abnormal stress test (Primary Dx) 01/11/2025 Clinisync Result Encounter NOMS External Department Unsolicited Katalina Colbert NP 01/10/2025 Orders Only [facility] [address] [place] [address] Katalina Colbert NP Contusion of right knee, initial encounter (Primary Dx) 01/09/2025 Refill [facility] [address] [place] [address] Katalina Colbert NP Mixed hyperlipidemia ; Other chronic pain; Allergic rhinitis, unspecified seasonality, unspecified trigger 01/08/2025 Refill [facility] [address] [place] [address] Sarah Jarvis MD Type 2 diabetes mellitus 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, unspecified whether long term care social worker insulin use (HCC) 01/08/2025 Refill [facility] [address] [place] [address] Katalina Colbert NP Essential hypertension ; Bilateral lower extremity edema; Uncontrolled type 2 diabetes mellitus 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, with long-term current use of insulin (HCC); Chronic pain syndrome; Anxiety and depression 01/03/2025 Travel 01/02/2025 Orders Only [facility] [address] [place] [address] Katalina Colbert NP 12/31/2024 Telephone [facility] [address] [place] [address] Katalina Colbert NP 12/21/2024 Refill [facility] [address] [place] [address] Katalina Colbert NP Uncontrolled type 2 diabetes mellitus 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, with long-term current use of insulin ([facility]) 12/18/2024 [facility] [address] [facility] [place] [address] Darlin Reynolds MA THINPREP IMAGING PAP AND HPV DNA REFLEX HPV 16,18 12/12/2024 Telephone [facility] [address] [place] [phone] Katalina Colbert NP 12/11/2024 2:30 PM EDT [facility] [address] [facility] [place] [address] Alexa Pulliam CNM Hot flashes (Primary Dx); Normal gynecologic examination; Screening for cervical cancer 12/04/2024 Refill [facility] [address] [place] [phone] Katalina Colbert NP Essential hypertension 12/04/2024 Refill [facility] [address] [facility] [address] [place] [phone] Sarah Jarvis MD Type 2 diabetes mellitus 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, unspecified whether long term care social worker insulin use ([facility]) 11/13/2024 3:00 PM EDT Office Visit [facility] [address] [place] [phone] Katalina Colbert NP Chest pain of unknown etiology (Primary Dx); Essential hypertension ; KARINE (obstructive sleep apnea); Class 3 severe obesity due to excess calories with serious comorbidity and body mass index (BMI) of 50.0 to 59.9 in adult ([facility]); Uncontrolled type 2 diabetes mellitus 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, with long-term current use of insulin ([facility]) 11/13/2024 Bamboo flowsheet [facility] [address] [place] [address] Katalina Colbert NP 11/05/2024 Refill [facility] [address] [place] [phone] Katalina Colbert NP Hidradenitis suppurativa of multiple sites (Primary Dx) 11/05/2024 Refill [facility] [address] [place] [address] Katalina Colbert, NETTIE Mixed hyperlipidemia 11/03/2024 Refill [facility] [address] [place] [phone] Katalina Colbert, NETTIE Mixed hyperlipidemia 11/02/2024 Clinisync Result Encounter NOMS External Department Unsolicited Katalina Colbert NP from Last 3 Months Immunizations Immunization Administration Dates Next Due Hep B, adult 08/11/2001,02/17/2001,03/09/2000 Influenza, High Dose Seasona l, Preservative Free 03/25/2020,04/05/2019,03/22/2018 Influenza, Recombinant, inje ctable, preservative free 02/24/2024 Influenza, injectable, quadr ivalent, preservative free 03/25/2020,03/22/2018 Influenza, seasonal, injectable 03/19/2019,03/04,03/23/2013 Novel [id number], preservative-free 04/15 Pneumococcal Conjugate PCV 20 02/24/2024 [...] 08/13/2024 How often do you attend chur ch or yazidi services? More than 4 times per year 08/13/2024 Do you belong to any clubs o r organizations such as oriental orthodox groups, unions, fraternal or athletic groups, [...] medical care, and heating? Somewhat hard 08/13/2024 [facility] [...] Visit [facility] [address] [place] [phone] Katalina Colbert NP [address] [place] [address] 05/15/2025 1:00 PM EST Office Visit [facility] [address] [place] [address] Alexa Pulliam, CNM [address] [place] [address] Health Maintenance Due Date Last Done Comments CT Colonography 1967 FIT-DNA 1967 FIT 1967 FOBT 1967 Sigmoidoscopy 1967 HPV/Cotest 1997 Diabetes: Hemoglobin A1C 10/10/2024 025, 03/08/2024, 11/07/2023, Additional history exists Diabetes: Urine Protein Screening 12/06/2024 024, 10/12/2022 Influenza Vaccine (#1) 2025 4, 03/25/2020, 03/25/2020, Additional history exists Mammogram 06/12/2025 06/12/2024, 112 02/2023, 05/04/2023 Diabetes: Retinopathy Screening 05/10/2026 4, 02/28/2023 Cervical Cancer Screening 06/09/2026 Pap Smear 06/09/2026 06/09/2023 (Patient Refused) Colonoscopy 09/26/2028 09/27/2023, 09/27/2023 Colorectal Cancer Screening 09/26/2028 Goals Goal Patient Goal Type Associated Problems Recent Progress Patient-Stated? Author Help patient manage antidepressant medication Care Plan Patient on antidepressant monitoring plan Argenis Mcmanus Baseline PHQ-9 Care Plan Baseline PHQ-9 Argenis Mcmanus Procedures Procedure Name Priority Date/Time Associated Diagnosis Comments XR KNEE 4+ VIEWS LEFT 01/30/2025 1:58 PM EDT NM GAMALIEL PERF SPECT REST STR 01/11/2025 [...] PM EDT [facility] CMP (CMP) (FOR REMOTE CRITICAL ACCESS [facility]OSPITAL USE) Routine 11/02/2024 1:05 PM EDT ALL CBC WITH AUTO DIFF Routine 1:05 PM EDT [facility] UA (CLEAN/CATCH) DIE PRESSER/MICRO IF IND. Routine 11/02/2024 12:48 PM EDT [facility] MICROALB CREAT RATIO RANDOM Routine 11/02/2024 12:48 PM EDT POCT GLYCOSYLATED HEMOGLOBIN (HGB A1C) Routine 07/13/2024 10:48 AM EST Type 2 diabetes mellitus 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, with long-term current use of insulin (HCC) MM TOMOSYNTHESIS SCREENING BI 06/12/2024 4:43 PM EST from Last 3 Months or Most Recently Relevant to Health Maintenance Results * XR knee 4+ views left (01/30/2025 1:58 PM EDT) Anatomical Region Laterality Modality Lower Extremities, Knee Left Radiogra [facility] 01/30/2025 1:58 PM EDT Narrative 01/30/2025 2:00 PM EDT The [address] [address] XRay Report Signed Patient: KATALINA HUTCHINS MR#: [id number] : 1965 Acct:[id number] Age/Sex: 60 / F ADM Date: 01/30/25 Loc: RAD Attending Dr: Katalina Colbert CHEMICAL ETCHING PROCESSOR Ordering Physician: Katalina Colbert NP Date of Service: 01/30/25 Procedure(s): XR knee LT 4V Accession Number(s): [id number] cc: Katalina Colbert NP The [place] [address] Patient Name: KATALINA HUTCHINS MRN: [id number] date: 1965 Sex: F Assigned Patient Location: RAD Current Patient Location: CARD Accession/Order Number: [id number] Exam Date: 01/30/2025 13:30 Report Date: 01/30/2025 13:58 At the request of: KATALINA COLBERT NP Procedure: XR knee LT 4V LEFT KNEE - 5 views COMPARISON: None CLINICAL DATA: Patient fell a month ago injuring left knee. Previous knee replacement. AP, lateral, both oblique and patellar views were obtained. There is osteopenia. Patient has a knee prosthesis. The hardware appears intact and in appropriate position. No acute fracture or dislocation is identified. There is no significant knee effusion or focal soft tissue swelling. XR/XR knee LT 4V IMPRESSION: SATISFACTORY APPEARANCE OF KNEE PROSTHESIS. NO ACUTE BONY INJURY. Impression dictated by: Annia Chandler M.D. 01/30/2025 1:58 PM Dictation Location: [place] [address] Electronically authenticated by: [id number] Y Date: 01/30/2025 13:58 Dictated By: Annia Chandler M.D. Signed By: 01/30/25 1400 DD/ 1358 TD/TT: Frog Catcher: Procedure Note Radiology, Radiologist, MD - 01/30/2025 [place] [address] XRay Report Signed Patient: KATALINA HUTCHINS MMR#: [id number] : 1965Acct:[id number] Age/Sex: 60 / FADM Date: 01/30/25 Loc: RAD Attending Dr: Katalina Colbert NP Ordering Physician: Katalina Colbert NP Date of Service: 01/30/25 Procedure(s): XR knee LT 4V Accession Number(s): [id number] cc: Katalina Colbert NP The [place] [id number] Patient Name: KATALINA HUTCHINS MRN: [id number] date: 1965 Sex: F Assigned Patient Location: [facility] Current Patient Location: CARD Accession/Order Number: [id number] Exam Date: 01/30/2025 13:30 Report Date: 01/30/2025 13:58 At the request of: KATALINA COLBERT NP Procedure: XR knee LT 4V LEFT KNEE - 5 views COMPARISON: None CLINICAL DATA: Patient fell a month ago injuring left knee. Previous knee replacement. AP, lateral, both oblique and patellar views were obtained. There is osteopenia. Patient has a knee prosthesis. The hardware appears intactand in appropriate position. No acute fracture or dislocation is identified. There is no significant knee effusion or focal soft tissue swelling. XR/XR knee LT 4V IMPRESSION: SATISFACTORY APPEARANCE OF KNEE PROSTHESIS. NO ACUTE BONY INJURY. Impression dictated by: Annia Chandler M.D. 01/30/2025 1:58 PM Dictation Location: [place] [address] Electronically authenticated by: [id number] Y Date: 3:58 Dictated By: Annia Chandler M.D. Signed By:01/30/25 1400 DD/ 1358 TD/TT: Frog Catcher: Katalina Colbert NP IMG XR PROCEDURES Final Result * NM GAMALIEL PERF SPECT REST STR (01/11/2025 5:43 PM EDT) Anatomical Region Laterality Modality Other 01/11/2025 5:43 PM EDT Narrative 01/11/2025 5:44 [place] [address] Nuclear Medicine Report Signed Patient: KATALINA HUTCHINS MR#: [id number] : 1965 Acct:[id number] Age/Sex: 59 / F ADM Date: 01/01/25 Loc: CARD Attending Dr: Katalian Colbert NP Ordering Physician: Katalina Colbert NP Date of Service: 01/01/25 Procedure(s): NM gamaliel perf SPECT rest str Accession Number(s): [id number] cc: Katalina Colbert NP Patient Name: KATALINA HUTCHINS MR#: [id number] : 1965 Exam Date: 01/01/2025 Ordering Doctor: [...] the study was pending per attending physician [facility] . For more details please see [...] Signed By: 01/11/25 1744 DD/ 42 TD/TT: Frog Catcher: Procedure Note Radiology, Radiologist, - 01/11/2025 [place] [address] Nuclear Medicine Report Signed Patient: KATALINA HUTCHINS MMR#: [id number] : 1965Acct:[id number] Age/Sex: 59 / FADM Date: 01/01/25 Loc: CARD Attending Dr: Katalina Colbert NP Ordering Physician: Katalina Colbert NP Date of Service: 01/01/25 Procedure(s): NM gamaliel perf SPECT rest str Accession Number(s): [id number] cc: Katalina Colbert NP Patient Name: KATALINA HUTCHINS MR#: [id number] : 1965 Exam Date: 01/01/2025 Ordering Doctor: [...] the study was pending per attending physician [facility] . For more details pleasesee separate [...] 17:43 Dictated By: Liliam Andrews M.D. Signed By:01/11/251743 DD/ 42 TD/TT: Frog Catcher: Katalina Colbert NP [facility] IMAGING Final Result [...] has been evaluated with computer assisted technology. BUFFERER [facility] Comment: EMP, CT(ASCP) CT screening location: [facility] [place] [address]. CLIA: [id number] REVIEW BUFFERER [facility] Comment: Reference Range: ZL, CT(ASCP) CT screening location: [facility] [place] [address]. CLIA: [id number] (ALWAYS MESSAGE) [facility]ST Comment: EXPLANATORY NOTE: The [...] Performing Organization Information Site ID: AMD Name: [facility] Address: [address] [place] [address] Dr Lockett, ID Director: Shaka Simpson M.D.,PhD Site ID: [id number] Name: [facility] Address: [address] [place] [address], [address] [place] [id number] Director: Nav Martinez MD Alexa MATOS LAB CYTOLOGY ORDERABLES Melva l Result Performing Organization Address [facility] Co de Phone Number QUEST * BOX TEST (11/02/2024 1:05 PM EDT) BOX TEST SENT OUT THYROGLOBULIN [facility] BOX1 LABCO TBH BOX2 ADDED 11/07/24 TB BOX TEST RESULT 11/20/24 [facility] 11/02/2024 1:05 PM EDT 11/07/2024 8:58 AM EDT Narrative CLINISYNC - 11/20/2024 9:00 AM EDT THYROGLOBULIN BY LCMS ADDED ON Generic External Data Provider LAB BLOOD ORDERAB LES Final Result Performing Organization Address [facility] Co de Phone Number [facility] * THYROGLOBULIN ANTIBODY (11/02/2024 1:05 PM EDT) THYROGLOBULIN ANTIBODY <1.0 0.0 - 0.9 IU/mL [facility] Comment: Thyroglobulin Antibody measured by [facility] [employer] It should be noted that the presence of thyroglobulin antibodies may not be pathogenic nor diagnostic, especially at very low levels. The assay mechanical laboratory technician has found that four percent of individuals without evidence of thyroid disease or autoimmunity will have positive TgAb levels up to 4 IU/mL. Performed at: [address] [id number] Intake Assessor: Hakeem Gibson PhD, Phone: [phone] 11/02/2024 1:05 PM EDT 11/02/2024 1:07 PM EDT Narrative [facility] - 11/05/2024 6:09 PM EDT us Generic External Data Provider LAB BLOOD ORDERAB LES Final Result [facility] TB * (ABNORMAL) [facility] CMP (CMP) (FOR REMOTE CRITICAL ACCESS [facility]OSPITAL USE) (11/02/2024 1:05 PM EDT) SODIUM [...] 0.55 - 1.02 mg/dL TBH TBH EGFR-AF SRI LANKAN >60 >=60 mL/min/1. 73m 2 TBH TBH EGFR-NON AF SRI LANKAN >60 >=60 mL/min/1. 73m 2 [facility] BUN [...] - 11/02/2024 2:19 PM EDT us Katalina Makcaritogerson CHEMICAL ETCHING PROCESSOR [facility]IN[facility] Final Result [facility] TB * ALL THYROXINE (T4) (11/02/2024 1:05 PM EDT) T4 THYROXINE 13.00 4.80 - 13.90 ug/dL [facility] 11/02/2024 1:05 PM EDT 11/02/2024 1:07 PM EDT Narrative [facility]IN[facility]NC - 11/02/2024 2:20 PM EDT Generic External Data Provider [facility]IN[facility] F inal Result Performing Organization Address City/[facility]/ZIP Co de Phone Number [facility] TB * ALL THYROID STIM HORMONE (11/02/2024 1:05 PM EDT) THYROID STIMULATING HORMONE 0.499 0.358 - 3.740 uIU/mL [facility] 11/02/2024 1:05 PM EDT 11/02/2024 1:07 PM EDT Narrative CLINISYNC - 11/02/2024 2:20 PM EDT Generic External Data Provider CLINISYNC F inal Result Performing Organization Address City/[facility]/ZIP Co de Phone Number CLINISYNC TB * [...] us Katalina Colbert NP CLIN[facility] Final Result [facility] * (ABNORMAL) [facility] UA (CLEAN/CATCH) DIE PRESSER/MICRO IF IND. (11/02/2024 12:48 PM EDT) COLOR [...] CLINISYNC - 11/02/2024 2:27 PM EDT Katalina Colbert CHEMICAL ETCHING PROCESSOR CLINISYNC Final Result [facility]NC TB * TBH MICROALB CREAT RATIO RANDOM (11/02/2024 12:48 PM EDT) MICROALBUMIN URINE RANDOM <1.3 <=30.0 mg/dL TBH CREATININE URINE RANDOM 33.57 20.00 - 300.00 mg/dL [facility] 11/02/2024 12:4 8 PM EDT 11/02/2024 1:07 PM EDT Narrative CLINISYNC - 11/02/2024 1:44 PM EDT Katalina Colbert CHEMICAL ETCHING PROCESSOR CLINISYNC Final Result CLINISYNM TB * (ABNORMAL) POCT glycosylated hemoglobin (Hb A1C) docked device (07/13/2024 10:48 AM EST) Hemoglobin A1C 9.5 Blood Venous blood specimen / Unknown 07/13/2024 10:48 AM EST Sarah Jarvis MD POINT OF CARE TEST ENTER/EDIT ORDERABLES Final Result * MM TOMOSYNTHESIS SCREENING BI (06/12/2024 4:43 PM EST) Anatomical Region Laterality Modality Other 06/12/2024 4:43 PM EST Narrative 06/12/2024 4:45 [place] [address] Mammography Report Signed Patient: KATALINA HUTCHINS MR#: [id number] : 1965 Acct:[id number] Age/Sex: 59 / F ADM Date: 06/12/24 Loc: MAMMO Attending Dr: Katalina Colbert NP Ordering Physician: Katalina Colbert NP Results: Date of Service: 06/12/24 Follow Up: Procedure(s): MM tomosynthesis screening BI Accession Number(s): [id number] cc: Katalina Colbert NP Patient Name: KATALINA HUTCHINS MR#: [id number] : 1965 Exam Date: 06/12/2024 Ordering Doctor: [...] uterine cancer at age 28. LOCATION: The [facility] BREAST COMPOSITION: There are scattered areas of [...] Dictated By: Matias Edwards M.D. Signed By: 06/12/24 1645 DD/ 42 TD/TT: Frog Catcher: Procedure Note Radiology, Radiologist, MD - 06/12/2024 [place] [address] Mammography Report Signed Patient: KATALINA HUTCHINS MMR#: [id number] : 1965Acct:[id number] Age/Sex: 59 / FADM Date: 06/12/24 Loc: MAMMO Attending Dr: Katalina Colbert NP Ordering Physician: Katalina Colbert NPResults: Date of Service: 06/12/24Follow Up: Procedure(s): MM tomosynthesis screening BI Accession Number(s): [id number] cc: Katalina Colbert NP Patient Name: KATALINA HUTCHINS MR#: [id number] : 1965 Exam Date: 06/12/2024 Ordering Doctor: TARIK Colbert CNP RADIOLOGY REPORT PROCEDURE: MM TOMOSYNTHESIS SCREENING BI COMPARISON: MM TOMOSYNTHESIS SCREENING BI, 04/29/2023. MG MAMM [id number] FRANCI CAD, 04/27/2022. MG MAMM SCREEN 3D [...] uterine cancer at age 28. LOCATION: The [facility] BREAST COMPOSITION: There are scattered areas of [...] Edwards M.D. Signed By:06/12/241644 DD/ 42 TD/TT: Frog Catcher: Katalina Colbert CHEMICAL ETCHING PROCESSOR [facility] IMAGING Final Result from Last 3 Months or Most Recently Relevant to Health Maintenance Additional Health Concerns Active Problems Noted Date Diagnosed Date Patient on antidepressant monitoring plan 2024 Baseline PHQ-9 01/08/2025 Insurance [facility] Care Teams [employer] Relationship Specialty Start Date End Date Kervin Stevens MD [address] [place] [address] PCP - General Family Medicine 06/01/23 Katalina Colbert NP [address] [place] [address] Nurse Practitioner Family Medicine 03/06/23
--- OUTSIDE RECORDS SUMMARY | 2025-01-31 07:49 | XMS_ITS | Encounter Summary ---
Author Organization [facility] Address [address] [place] [address] Care Team Providers Care Test Examiner Name Role Phone Katalina Colbert BARREL RIFLER HOOK Unavailable [phone] Kervin Stevens MD Primary Care Provider [phone] Encounter Details Date Type Department Care Team (Late st Contact Info) Description 08/13/2024 Orders Only [facility] [address] [place] [address] Mason Stephens MD [address] [place] [address] Social History Tobacco Use Types Packs/Day Years [...] How often do you attend chur or hindu services? More than 4 times per year 08/13/2024 Do you belong to any clubs o r organizations such as methodist groups, unions, fraternal or athletic groups, or [...] medical care, and heating? Somewhat hard 08/13/2024 [facility] - [...] any time in the past 12 m [facility], were you homeless or living [...] Visit [facility] [address] [place] [address] Katalina Colbert NP [address] [place] [phone] 05/15/2025 1:00 PM EST Office Visit [facility] [address] [place] [phone] Alexa Pulliam CN [address] [place], [place] [phone] documented as of this encounter Procedures Procedure Name Priority Date/Time Associated Diagnosis Comments US PELVIS TRANSVAGINAL Routine 08/13/2024 3:15 PM EDT documented in this encounter Results * US pelvis transvaginal (08/13/2024 3:15 PM EDT) Anatomical Region Laterality Modality Pelvis Ultrasound us Mason Stephens MD IMG US PROCEDURES Final Result documented in this encounter Visit Diagnoses Not on filedocumented in this encounter Care Teams Test Examiner Relationship Specialty Start Date End Date Kervin Stevens MD [address] [place] [phone] PCP - General Family Medicine 06/01/23 Katalina Colbert, NETTIE [address] [place] [phone] Nurse Practitioner Family Medicine 03/06/23 documented as of this encounter
--- OUTSIDE RECORDS SUMMARY | 2025-01-31 07:49 | XMS_ITS | Encounter Summary ---
Author Organization [facility] Address [address] [place] [address] Care Team Providers Care Cannery Worker Name Role Phone Katalina Colbert RECREATIONAL THERAPY TECHNICIAN Unavailable [phone] Kervin Stevens MD Primary Care Provider [phone] Encounter Details Date Type Department Care Team (Late st Contact Info) Description 01/30/2025 Clinisync Result Encounter [facility] External Department Unsolicited Katalina Colbert, NETTIE [address] [place] [address] Social History Tobacco Use Types Packs/Day Years [...] How often do you attend chur or mu-ism services? More than 4 times per year 08/13/2024 Do you belong to any clubs o r organizations such as rastafarian groups, unions, fraternal or athletic groups, or [...] medical care, and heating? Somewhat hard 08/13/2024 [facility] - [...] place to sleep or slept in a snf (including now)? No 06/02/2023 Housing Stability Vital Sign Answer Emanuel e Recorded In the last 12 months, was t here a time when you were not able to pay the mortgage or rent on time? No 08/13/2024 In the past 12 months, how m any times have you moved where you were living? 0 08/13/2024 At any time in the past 12 m [facility], were you homeless or living in a snf (including now)? No 08/13/2024 Comments No Sex [...] Visit [facility] [address] [place] [address] Katalina Colbert NP [address] [place] [address] 05/15/2025 1:00 PM EST Office Visit [facility] [address] [place] [address] Alexa Pulliam CNM [address] [place] [address] documented as of this encounter Goals Goal Patient Goal Type Associated Problems Recent Progress Patient-Stated? Author Help patient manage antidepressant medication Care Plan Patient on antidepressant monitoring plan No Argenis Michaels Baseline PHQ-9 Care Plan Baseline PHQ-9 No Argenis Michaels documented as of this encounter Procedures Procedure Name Priority Date/Time Associated Diagnosis Comments XR KNEE 4+ VIEWS LEFT 01/30/2025 1:58 PM EDT documented in this encounter Results * XR knee 4+ views left (01/30/2025 1:58 PM EDT) Anatomical Region Laterality Modality Lower Extremities, Knee Left Radiogra phic Imaging 01/30/2025 1:58 PM EDT Narrative 01/30/2025 2:00 PM EDT [address] [address] XRay Report Signed Patient: KATALINA HUTCHINS MR#: [id number] : 1965 Acct:[id number] Age/Sex: 60 / F ADM Date: 01/30/25 Loc: RAD Attending Dr: Katalina Colbert RECREATIONAL THERAPY TECHNICIAN Ordering Physician: Katalina Colbert NP Date of Service: 01/30/25 Procedure(s): XR knee LT 4V Accession Number(s): [id number] cc: Katalina Colbert NP [address] [address] Patient Name: KATALINA HUTCHINS MRN: [id number] date: 1965 Sex: F Assigned Patient Location: RAD Current Patient Location: CARD Accession/Order Number: [id number] Exam Date: 01/30/2025 13:30 Report Date: 01/30/2025 [...] Chandler M.D. 01/30/2025 1:58 PM Dictation Location: [place] [address] Electronically authenticated by: [id number] Y Date: 01/30/2025 13:58 Dictated By: Annia Chandler M.D. Signed By: 01/30/25 1400 DD/ 1358 TD/TT: Dog Handler: Procedure Note Radiology, Radiologist, MD - 01/30/2025 [place] [address] XRay Report Signed Patient: KATALINA HUTCHINS MMR#: [id number] : 1965Acct:[id number] Age/Sex: 60 / FADM Date: 01/30/25 Loc: RAD Attending Dr: Katalina Colbert NP Ordering Physician: Katalina Colbert NP Date of Service: 01/30/25 Procedure(s): XR knee LT 4V Accession Number(s): [id number] cc: Katalina Colbert NP The [place] [id number] Patient Name: KATALINA HUTCHINS MRN: [id number] date: 1965 Sex: F Assigned Patient Location: [facility] Current Patient Location: CARD Accession/Order Number: [id number] Exam Date: 01/30/2025 13:30 Report Date: 01/30/2025 [...] Chandler M.D. 01/30/2025 1:58 PM Dictation Location: [employer] Electronically authenticated by: [id number] Y Date: 3:58 Dictated By: Annia Chandler M.D. Signed By:01/30/25 1400 DD/ 1358 TD/TT: Dog Handler: us Katalina Colbert NP IMG XR PROCEDURES Final Result documented in this encounter Visit Diagnoses Not on filedocumented in this encounter Additional Health Concerns Active Problems Noted Date Diagnosed Date Patient on antidepressant monitoring plan 2024 Baseline PHQ-9 01/08/2025 documented as of this encounter Care Teams Cannery Worker Relationship Specialty Start Date End Date Kervin Stevens MD [address] [place] [address] PCP - General Family Medicine 06/01/23 Katalina Clobert NP [address] [place] [address] Nurse Practitioner Family Medicine 03/06/23 documented as of this encounter
--- OUTSIDE RECORDS SUMMARY | 2025-01-31 07:49 | XMS_ITS | Encounter Summary ---
Author Organization [facility] Address [address] [place] [address] Care Team Providers Care Medication Assistant Name Role Phone Kaatlina Colbert E COMMERCE MERCHANDISING COORDINATOR Unavailable [phone] Kervin Stevens MD Primary Care Provider [phone] Encounter Details Date Type Department Care Team (Late st Contact Info) Description 07/17/2024 Orders Only [facility] [address] [place] [address] Katalina Colbert, NETTIE [address] [place] [address] Social History Tobacco Use Types Packs/Day Years [...] How often do you attend chur or lutheran services? More than 4 times per year [...] place to sleep or slept in a fci (including now)? No 06/02/2023 Comments Unknown Sex [...] PHILIP [address] [place] [address] Katalina Colbert NP [address] [place] [address] 05/15/2025 1:00 PM EST Office Visit [facility] [address] [place] [address] Alexa Pulliam CNM [address] [place] [address] documented as of this encounter Visit Diagnoses Not on filedocumented in this encounter Care Teams Medication Assistant Relationship Specialty Start Date End Date Kervin Stevens MD [address] [place] [address] PCP - General Family Medicine 06/01/23 Katalina Colbert NP [address] [place] [address] Nurse Practitioner Family Medicine 03/06/23 documented as of this encounter
--- OUTSIDE RECORDS SUMMARY | 2025-01-31 07:49 | XMS_ITS | Clinical Summary ---
Author Organization [facility] Address [address] [place] [address] Care Team Providers Care Sugar Refiner Name Role Phone Katalina Colbert CNP Primary Care Provider Zion Nugent MD Unavailable [phone] Allergies Active Allergy Reactions Criticality Noted Date [...] Team Description 11/23/2024 Refill Radiation Oncology [address] [place] [address] Zion Nugent MD Refill Request 11/22/2024 Telephone Radiation Oncology [address] [place] [address] [place] [address] Zion Nugent MD Results; Future Appointment 11/21/2024 4:00 PM EDT [facility] Radiation Oncology [address] [place] [address] [place] [address] Zion Nugent MD History of thyroid cancer (Primary Dx) 11/20/2024 Travel 11/13/2024 Telephone Radiation Oncology [address] [place] [address] [place] [address] Zion Nugent MD Results; Patient Update; Future [...] is lower risk 4 11/18/2022 Data from: https://www.neighborhoodatlas.medicine.[facility].edu/ . Last address used for calculation [address] 11/18/2022 Comments No Sex [...] EDT Office Visit [facility] Laboratory [address] [place] [address] labs 11/27/2025 4:00 PM EDT [facility] Radiation Oncology [address] [place] [address] Zion Nugent MD [address] [place] [address] Follow up after recheck labs Health Maintenance [...] Completed 02/24/2024, Medical Devices Implanted Type Area Drier Operator Head Device Identifier Shelf Expiration Date Model / Serial / Lot 0---Anchr Sut 4.5mm Pshlk nl - [id number] Implanted:Qty: 3 on 11/29/2012 at [facility] Crumrod Right: Bone - Shoulder [employer] 08/03/2017 [id number] / / [id number] Description:SUTURE ANCHOR Procedures Procedure Name Priority Date/Time [...] Address Self Pay Self 1965 [address] [address] Care Teams Sugar Refiner Relationship Specialty Start Date End Date Katalina Colbert CNP PCP - General Family Medicine 11/26/14 Zion Nugent MD [address] [place] [address] [place] [address] Radiation Oncology 05/28/20
--- OUTSIDE RECORDS SUMMARY | 2025-01-31 07:49 | XMS_ITS | Encounter Summary ---
Author Organization [facility] Address [address] [place] [address] Care Team Providers Care Hat Cleaner Name Role Phone Katalina Colbert NP Unavailable [phone] Kervin Stevens MD Primary Care Provider [phone] Encounter Details Date Type Department Care Team (Late st Contact Info) Description 01/16/2025 Results Follow-Up [facility] CW FM [address] [place] [address] [place] LACEY PERF SPECT REST [...] How often do you attend chur or sabianist services? More than 4 times per year 08/13/2024 Do you belong to any clubs o r organizations such as bahai groups, unions, fraternal or athletic groups, or [...] medical care, and heating? Somewhat hard 08/13/2024 [facility] Occupational Stress Questionnaire Answer Date [...] place to sleep or slept in a nursing home (including now)? No 06/02/2023 Housing Stability [...] any time in the past 12 m [facility], were you homeless or living in a nursing home (including now)? No 08/13/2024 Comments No [...] Visit [facility] [address] [place] [address] Katalina Colbert NP [address] [place] [address] 05/15/2025 1:00 PM EST Office Visit [facility]D [address] [facility] [place] [address] Alexa Pulliam, COLBY [address] [place] [address] documented as of this encounter [...] documented as of this encounter Care Teams Hat Cleaner Relationship Specialty Start Date End Date Kervin Stevens MD [address] [place] [address] PCP - General Family Medicine 06/01/23 Katalina Colbert NP [address] [place] [address] Nurse Practitioner Family Medicine 03/06/23 documented as of this encounter
--- OUTSIDE RECORDS SUMMARY | 2025-01-31 07:49 | XMS_ITS | Encounter Summary ---
Author Organization [facility] Address [address] [place] [address] Care Team Providers Care Seal Mixer Name Role Phone Katalina Colbert OUTPATIENT CASE MANAGER Unavailable [phone] Kervin Stevens MD Primary Care Provider [phone] Encounter Details Date Type Department Care Team (Late st Contact Info) Description 09/28/2023 Orders Only [facility] C[facility] [address] [place] [address] Maninder [address] [id number] Social History Tobacco Use Types Packs/Day Years [...] often do you attend chur ch or anabaptist services? More than 4 times per year [...] Office Visit [facility] [address] [place] [address] Katalina Colbert NP [address] [place] [address] 05/15/2025 1:00 PM EST Office Visit [facility]AY LOYD [address] [place] [address] Alexa Pulliam CNM [address] [place] [address] documented as of this encounter Procedures Procedure Name Priority Date/Time Associated Diagnosis Comments SCANNED LABS Routine 09/28/2023 11:17 AM EDT documented in this encounter Results * SCANNED LABS (09/28/2023 11:17 AM EDT) Maninder Holt DO LAB CHG PERFORMABLES Final Re sult documented in this encounter Visit Diagnoses Not on filedocumented in this encounter Care Teams Seal Mixer Relationship Specialty Start Date End Date Kervin Stevens MD [address] [place] [address] PCP - General Family Medicine 06/01/23 Katalina Colbert NP [address] [place] [address] Nurse Practitioner Family Medicine 03/06/23 documented as of this encounter
--- OUTSIDE RECORDS SUMMARY | 2025-01-31 07:49 | XMS_ITS | Encounter Summary ---
Author Organization [facility] Address [address] [place] [address] Care Team Providers Care Driver/Sales Workers Name Role Phone Katalina Colbert WALLPAPERER HELPER Unavailable [phone] Kervin Stevens MD Primary Care Provider [phone] Encounter Details Date Type Department Care Team (Late st Contact Info) Description 01/22/2024 Clinisync Result Encounter NOMS External Department Unsolicited Katalina Colbert, NETTIE [address] [place] [address] Social History Tobacco Use Types Packs/Day Years [...] often do you attend chur ch or baptist services? More than 4 times per year [...] medical care, and heating? Somewhat hard 06/02/2023 [facility] Occupat ional Health - Occupational [...] 02/05/2025 11:30 AM EDT [facility] [address] [place] [address] Katalina Colbert NP [address] [place] [address] 05/15/2025 1:00 PM EST Office Visit RAY LOYD [address] [place] [address] Alexa Pulliam CNM [address] [place] [address] documented as of this encounter Procedures Procedure Name Priority Date/Time Associated Diagnosis Comments XR HIP LT MIN 2V 01/22/2024 9:40 AM EDT documented in this encounter Results * XR HIP LT MIN 2V (01/22/2024 9:40 AM EDT) Anatomical Region Laterality Modality Other 01/22/2024 9:40 AM EDT Narrative 01/22/2024 9:42 AM EDT [address] [address] XRay Report Signed Patient: KATALINA HUTCHINS MR#: [id number] : 1965 Acct:[id number] Age/Sex: 58 / F ADM Date: 01/18/24 Loc: RAD Attending Dr: Katalina Colbert WALLPAPERER HELPER Ordering Physician: Katalina Colbert NP Date of Service: 01/18/24 Procedure(s): XR hip LT min 2V Accession Number(s): [id number] cc: Katalina Colbert NP [place] [address] Patient Name: KATALINA HUTCHINS MRN: [id number] date: 1965 Sex: F Assigned Patient Location: [facility] Current Patient Location: [facility] Accession/Order Number: [id number] Exam Date: 01/18/2024 18:20 Report Date: 01/22/2024 [...] M.D. Signed By: 01/22/2442 DD/ 9 TD/TT: Sales Ledger Clerk: Procedure Note Radiology, Radiologist, - 01/22/2024 [facility] [place] [id number] XRay Report Signed Patient: KATALINA HUTCHINS MMR#: [id number] : 1965Acct:[id number] Age/Sex: 58 / FADM Date: 01/18/24 Loc: RAD Attending Dr: Katalina Colbert NP Ordering Physician: Katalina Colbert NP Date of Service: 01/18/24 Procedure(s): XR hip LT min 2V Accession Number(s): [id number] cc: Katalina Colbert NP [place] [id number] Patient Name: KATALINA HUTCHINS MRN: [id number] date: 1965 Sex: F Assigned Patient Location: [facility] Current Patient Location: [facility] Accession/Order Number: [id number] Exam Date: 01/18/2024 18:20 Report Date: 01/22/2024 [...] Liv Horne M.D. Signed By:01/22/2442 DD/ TD/TT: Sales Ledger Clerk: us Katalina Colbert NP [facility] Final Result documented in this encounter Visit Diagnoses Not on filedocumented in this encounter Care Teams Driver/Sales Workers Relationship Specialty Start Date End Date Kervin Stevens MD [address] [place] [address] PCP - General Family Medicine 06/01/23 Katalina Colbert NP [address] [place] [address] Nurse Practitioner Family Medicine 03/06/23 documented as of this encounter
--- OUTSIDE RECORDS SUMMARY | 2025-01-31 07:49 | XMS_ITS | Encounter Summary ---
Author Organization [facility] Address [address] [place] [address] Care Team Providers Care Store Operations Associate Name Role Phone Katalina Colbert CNP Primary Care Provider [phone] Zion Nugent MD Unavailable [phone] Source Comments In the event this information is protected by the Federal Confidentiality of Alcohol and Drug AbusePatient Records regulations: The Federal rules restrict any use of the information to criminally investigate or prosecute any alcohol or drug abuse patient.[facility] Encounter Details Date Type Department Care Team (Late st Contact Info) Description 05/29/2020 Abstract Radiation Oncology [address] [place] [address] [place] [address] Kaitlynn Carreon, SHAYLA Social History Tobacco Use [...] N ot on file 05/29/2020 Data from: https://www.neighborhoodatlas.medicine.[facility]/. Last address used for calculation Not [...] Description 11/21/2025 11:30 AM EDT Office Visit [facility] Laboratory [address] [place] [address] labs 11/27/2025 4:00 PM EDT [facility] Radiation Oncology [address] [facility] [place] [address] Zion Nugent MD [address] [place] [address] Follow up after recheck labs documented as of this encounter Visit Diagnoses Not on filedocumented in this encounter Care Teams Store Operations Associate Relationship Specialty Start Date End Date Katalina Colbert CNP PCP - General Family Medicine 11/26/14 Zion Nugent MD [address] [place] [address] Radiation Oncology 05/28/20 documented as of this encounter
--- OUTSIDE RECORDS SUMMARY | 2025-01-31 07:49 | XMS_ITS | Encounter Summary ---
Author Organization [facility] Address [address] [place] [address] Care Team Providers Care Solar Field Installation Crew Member Name Role Phone Katalina Colbert MARKSMANSHIP INSTRUCTOR Unavailable [phone] Kervin Stevens MD Primary Care Provider [phone] Reason for Visit * Reason Comments Med Refill Encounter Details Date Type Department Care Team (Late st Contact Info) Description 08/24/2024 Refill [facility] FM [address] [place] [address] Katalina Colbert, MARKSMANSHIP INSTRUCTOR [address] [place] [address] Allergic rhinitis, unspecified seasonality, unspecified trigger Social [...] How often do you attend chur or caodaism services? More than 4 times per year [...] medical care, and heating? Somewhat hard 08/13/2024 [facility] of Occupat ional Health - Occupational Stress [...] any time in the past 12 m [facility], were you homeless or living in [...] Office Visit [facility]IP [address] [place] [address] Katalina Colbert NP [address] [place] [address] 05/15/2025 1:00 PM EST Office Visit [facility] Suhas LOYD [address] [place] [address] Alexa Pulliam CNM [address] [place] [address] documented as of this encounter Visit Diagnoses Diagnosis Allergic rhinitis, unspecified seasonality, unspecified trigger documented in this encounter Care Teams Solar Field Installation Crew Member Relationship Specialty Start Date End Date Kervin Stevens MD [address] [place] [address] PCP - General Family Medicine 06/01/23 Katalina Colbert NP [address] [place] [address] Nurse Practitioner Family Medicine 03/06/23 documented as of this encounter
--- OUTSIDE RECORDS SUMMARY | 2025-01-31 07:49 | XMS_ITS | Encounter Summary ---
Author Organization [facility] Address [address] [place] [address] Care Team Providers Care Spirits Model Name Role Phone Katalina Colbert CONDENSER OPERATOR Unavailable [phone] Kervin Stevens MD Primary Care Provider [phone] Encounter Details Date Type Department Care Team (Late st Contact Info) Description 06/12/2024 Clinisync Result Encounter [facility] External Department Unsolicited Katalina Colbert, NETTIE [address] [place] [address] Social History Tobacco Use Types Packs/Day Years [...] often do you attend chur ch or congregational services? More than 4 times per year 06/02/2023 Do you belong to any clubs o r organizations such as amish groups, unions, fraternal or athletic groups, or [...] medical care, and heating? Somewhat hard 06/02/2023 [facility] of Occupat ional Health - Occupational [...] 02/05/2025 11:30 AM EDT [facility] Visit [facility] [address] [place] [address] Katalina Colbert NP [address] [place] [address] 05/15/2025 1:00 PM EST Office Visit RAY LOYD [address] [place] [address] Alexa Pulliam CNM [address] [place] [address] documented as of this encounter Procedures Procedure Name Priority Date/Time Associated Diagnosis Comments MM TOMOSYNTHESIS SCREENING BI 06/12/2024 4:43 PM EST documented in this encounter Results * MM TOMOSYNTHESIS SCREENING BI (06/12/2024 4:43 PM EST) Anatomical Region Laterality Modality Other 06/12/2024 4:43 PM EST Narrative 06/12/2024 4:45 PM EST The [address] [address] Mammography Report Signed Patient: KATALINA HUTCHINS MR#: [id number] : 1965 Acct:[id number] Age/Sex: 59 / F ADM Date: 06/12/24 Loc: MAMMO Attending Dr: Katalina Colbert NP Ordering Physician: Katalina Colbert NP Results: Date of Service: 06/12/24 Follow Up: Procedure(s): MM tomosynthesis screening BI Accession Number(s): [id number] cc: Katalina Colbert NP Patient Name: KATALINA HUTCHINS MR#: [id number] : 1965 Exam Date: 06/12/2024 Ordering Doctor: [...] uterine cancer at age 28. LOCATION: The [facility] BREAST COMPOSITION: There are scattered [...] M.D. Signed By: 06/12/245 DD/ 42 TD/TT: Park Keeper: Procedure Note Radiology, Radiologist, MD - 06/12/2024 [place] [address] Mammography Report Signed Patient: KATALINA HUTCHINS MMR#: [id number] : 1965Acct:[id number] Age/Sex: 59 / FADM Date: 06/12/24 Loc: MAMMO Attending Dr: Katalina Colbert NP Ordering Physician: Katalina Coblert NPResults: Date of Service: 06/12/24Follow Up: Procedure(s): MM tomosynthesis screening BI Accession Number(s): [id number] cc: Katalina Colbert NP Patient Name: KATALINA HUTCHINS MR#: [id number] : 1965 Exam Date: 06/12/2024 Ordering Doctor: TARIK Colbert CNP RADIOLOGY REPORT PROCEDURE: MM TOMOSYNTHESIS SCREENING BI COMPARISON: MM TOMOSYNTHESIS SCREENING BI, 04/29/2023. MG MAMM [id number] FRANCI CAD, 04/27/2022. MG MAMM SCREEN 3D [...] uterine cancer at age 28. LOCATION: The [facility] BREAST COMPOSITION: There are scattered [...] M.D. Signed By:06/12/24 1645 DD/ 1643 TD/TT: Park Keeper: us Katalina Colbert NP [facility] Final Result documented in this encounter Visit Diagnoses Not on filedocumented in this encounter Care Teams Spirits Model Relationship Specialty Start Date End Date Kervin Stevens MD [address] [place] [address] PCP - General Family Medicine 06/01/23 Katalina Colbert NP [address] [place] [address] Nurse Practitioner Family Medicine 03/06/23 documented as of this encounter
--- OUTSIDE RECORDS SUMMARY | 2025-01-31 07:49 | XMS_ITS ---
Author Organization [facility] Address [address] [place] [address] Care Team Providers Care Acquisition Marketing Manager Name Role Phone Katalina Colbert CNP Primary Care Provider [phone] Zion Nugent MD Unavailable [phone] Active Problems Problem Noted Date Diagnosed Date [...]
--- OUTSIDE RECORDS SUMMARY | 2025-01-31 07:49 | XMS_ITS | Encounter Summary ---
Author Organization [facility] Address [address] [place] [address] Care Team Providers Care Physician Specialist Name Role Phone Katalina Colbert BREAKFAST SERVER Unavailable [phone] Kervin Stevens MD Primary Care Provider [phone] Encounter Details Date Type Department Care Team (Late st Contact Info) Description 12/18/2024 Results Follow-Up [facility] [address] [place] [address] Darlin Reynolds MA THINPREP IMAGING [...] any clubs o r organizations such as hindu groups, unions, fraternal or athletic groups, or [...] place to sleep or slept in a retirement (including now)? No 06/02/2023 Housing Stability Vital [...] were you homeless or living in a retirement (including now)? No 08/13/2024 Comments No Sex [...] Visit [facility] [address] [place] [address] Katalina Colbert NP [address] [place] [address] 05/15/2025 1:00 PM EST Office Visit [facility] [address] [place] [address] Alexa Pulliam CNM [address] [facility] [place] [address] documented as of this encounter Visit Diagnoses Not on filedocumented in this encounter Care Teams Physician Specialist Relationship Specialty Start Date End Date Kervin Stevens MD [address] [place] [address] PCP - General Family Medicine 06/01/23 Katalina Colbert NP [address] [place] [address] Nurse Practitioner Family Medicine 03/06/23 documented as of this encounter
--- OUTSIDE RECORDS SUMMARY | 2025-01-31 07:49 | XMS_ITS | Encounter Summary ---
Author Organization [facility] Address [address] [place] [address] Care Team Providers Care Foil Spooler Name Role Phone Katalina Colbert BANQUET HOUSEPERSON Unavailable [phone] Kervin Stevens MD Primary Care Provider [phone] Encounter Details Date Type Department Care Team (Late st Contact Info) Description 01/10/2025 Orders Only [facility] [address] [place] [address] Katalina Colbert, BANQUET HOUSEPERSON [address] [place] [address] Contusion of right knee, initial encounter (Primary [...] medical care, and heating? Somewhat hard 08/13/2024 [facility] Occupat ional Health - Occupational [...] time in the past 12 m [facility], were you homeless or living in a jail (including now)? No 08/13/2024 Comments No Sex [...] Visit [facility] [address] [place] [address] Katalina Colbert NP [address] [place] [address] 05/15/2025 1:00 PM EST Office Visit [facility] [address] [place] [address] Heraclio Alexa L, CNM [address] [place], [place] [address] Scheduled Orders Name Type Priority Associated Diagnoses Orde r Schedule XR knee 4+ views left Imaging Routine Contusion of right knee, initial encounter Expected: 01/10/2025, Expires: 01/10/2026 documented as of this encounter Goals Goal Patient Goal Type Associated Problems Recent Progress Patient-Stated? Author Help patient manage antidepressant medication Care Plan Patient on antidepressant monitoring plan No [place], Argenis Baseline PHQ-9 Care Plan Baseline PHQ-9 No Xenia, Argenis documented as of this encounter Visit Diagnoses Diagnosis Contusion of right knee, initial encounter- Primary documented in this encounter Additional Health Concerns Active Problems Noted Date Diagnosed Date Patient on antidepressant monitoring plan 2024 Baseline PHQ-9 01/08/2025 documented as of this encounter Care Teams Foil Spooler Relationship Specialty Start Date End Date Kervin Stevens MD [address] [place] [address] PCP - General Family Medicine 06/01/23 Katalina Colbert NP [address] [place] [address] Nurse Practitioner Family Medicine 03/06/23 documented as of this encounter
--- OUTSIDE RECORDS SUMMARY | 2025-01-31 07:49 | XMS_ITS | Clinical Summary ---
Author Organization [facility] Address [address] [place] [address] Care Team Providers Care Campus Recruiting Intern Name Role Phone Katalina Colbert MD Primary Care Provider [phone] Allergies Active Allergy Reactions Criticality Noted Date Comments Adhesive Rash Medium 05/11/2012 Latex Rash Low 08/29/2018 Medications aspirin 81 mg EC tablet Take 81 mg by mouth in the morning. Active cholecalciferol (Vitamin D-3) 25 MCG (1000 UT) capsule Take 1 capsule by mouth in the morning. 5 Active DULoxetine (Cymbalta) [address] capsule Take 60 mg by mouth in the morning. 5 04/08/20 25 Active fexofenadine (Yolanda) 180 mg tablet Take 180 mg by mouth if needed each day. 5 04/09/20 25 Active hydroCHLOROthia zide (Microzide) 12.5 mg capsule Take 12.5 mg by mouth in the morning. 5 04/08/20 25 Active ibuprofen 800 mg tablet Take 800 mg by mouth every 12 (twelve) hours. 5 04/09/20 25 Active Lantus Solostar U-100 Insulin 100 unit/mL (3 mL) injection pen Inject 100 Units under the skin at bedtime. 8 03/06/20 25 Active insulin glargine-yfgn (Semglee) 100 unit/mL (3 mL) insulin pen Inject 100 Units under the skin at bedtime. 4 Active levothyroxine (Synthroid, Levoxyl) 200 mcg tablet Take 200 mcg by mouth in the morning. 3 Active losartan (Cozaar) 100 mg tablet Take 100 mg by mouth in the morning. 5 04/08/20 25 Active metFORMIN (Glucophage) 1,000 mg tablet Take 1,000 mg by mouth twice a day. 8 04/08/20 25 Active norethindrone ac-eth estradioL (Femhrt Low Dose) 0.5-2.5 mg-mcg tablet Take 1 tablet by mouth in the morning. 5 03/11/20 25 Active simvastatin (Zocor) 5 mg tablet Take 5 mg by mouth at bedtime. 8 04/09/20 25 Active Januvia 100 mg tablet Take 100 mg by mouth in the morning. 5 Active tiZANidine (Zanaflex) 4 mg tablet Take 4 mg by mouth if needed each day. 1 04/08/20 25 Active fluticasone (Flonase) 50 mcg/actuation nasal spray Administer 2 sprays into each nostril in the morning. 4 Active albuterol 90 mcg/actuation inhaler Inhale 2 puffs every 4 (four) hours if needed. 9 Active metoprolol succinate XL (Toprol-XL) 25 mg 24 hr tabletIndicatio ns:Other chest pain,Cardiovasc ular stress test abnormal Take 1 tablet (25 mg) by mouth in the morning. Do not crush or chew. 90 tablet 3 5 01/15/20 26 Active Active Problems Problem Noted Date Diagnosed Date Other chest pain 01/14/2025 Cardiovascular stress test abnormal 01/14/2025 Shortness of breath 01/14/2025 Abnormal stress test 01/13/2025 Contusion of right knee 01/10/2025 Encounter for screening mamm ogram for malignant neoplasm of breast 05/09/2024 Left foot pain 05/09/2024 Other chronic pain 05/09/2024 Yeast infection of the vagina 04/09/2024 Hidradenitis suppurativa of multiple sites 02/07 Class 3 severe obesity due t o excess calories with serious comorbidity and body mass index (BMI) of 50.0 to 59.9 in adult 12/12/2023 Lumbar back pain with radicu lopathy affecting left lower extremity 12/12/2023 History of rectal polyps 09/08/2023 Vitamin D deficiency 08/25/2023 Arthritis of knee, right 08/03/2023 Multinodular goiter 08/03/2023 KARINE (obstructive sleep apnea) 08/03/2023 Papillary thyroid carcinoma 08/03/2023 Postoperative hypothyroidism 08/03/2023 Allergic rhinitis 07/04/2023 Bilateral lower extremity edema 06/12/2023 Anxiety and depression 06/09/2023 Essential hypertension 06/09/2023 Uncontrolled type 2 diabetes mellitus 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, with long-term current use of insulin 06/09/2023 Thyroid cancer 06/04/2020 Chest pain of unknown etiology 04/24/2020 Mixed hyperlipidemia 04/24/2020 Type 2 diabetes mellitus 04/24/2020 Bicipital tendinitis 11/23/2012 Cervicalgia 08/07/2012 Rotator cuff (capsule) sprain 08/07/2012 Encounters Date Type Department Care Team Description 01/14/2025 3:30 PM EDT Office Visit [address] [address] Emeterio Tuttle MD Other chest pain (Primary Dx); Cardiovascular stress test abnormal; Shortness of breath; Primary hypertension; Mixed hyperlipidemia; KARINE (obstructive sleep apnea) 01/14/2025 Orders Only [address] [address] ProviderIvana MD from Last 3 Months Family History Medical History Relation Name Comments Coronary artery disease Father Coronary artery disease Mother Parkinsonism Mother Relation Name Status Comments Father Alive Mother Social History Tobacco Use Types Packs/Day Years [...] Heterosexual or Straight 01/04 2:39 PM EDT Last Filed Vital Signs Vital Sign Reading [...] Mass Index 48.06 01/14/2025 4:12 PM EDT Plan of Treatment Upcoming Encounters Date Type Department Care Team (Late st Contact Info) Description 02/22/2025 9:30 AM EDT Hospital En[facility] [address] [place] [address] Emeterio Tuttle MD [address] [facility] [place] [address] Other chest pain; Cardiovascular stress test abnormal; Shortness of breath 02/22/2025 9:30 AM EDT - 02/22/2025 10:30 AM EDT Surgery [facility] [place] [facility] [address] [place] [address] Emeterio Tuttle MD [address] [place] [address] Coronary angiography Health Maintenance Due Date Last Done Comments CT Colonography 1967 Colonoscopy 1967 Colorectal Cancer Screening 1967 Diabetes: Hemoglobin A1C 1967 FIT-DNA 1967 FIT 1967 FOBT 1967 Sigmoidoscopy 1967 Diabetes: Retinopathy Screening 1977 Depression Screening 1979 Diabetes: Urine Protein Screening 1986 Pap Smear 01/25/1988 Adult Tetanus 1989 Cervical Cancer Screening 1997 HPV/Cotest 1997 Mammogram 2007 COVID-19 Vaccine ( season) 2024 Zoster Vaccines (2 of 2) 04/20/2024 02/24/2024 Influenza Vaccine (#1) 2025 , 03/25/2020, 04/05/2019, Additional history exists Hepatitis B Vaccines Completed 08/11/2001, 02/17/2001, 03/09/2000 Pneumococcal Vaccine: Pediatrics (0 to 5 Years) and At-Risk Patients (6 to 64 Years) Completed 02/24/2024, 03/25/2020 HIB Vaccines Aged Out No longer eligi ble based on patient's age to complete this topic HPV Vaccines Aged Out No longer eligi ble based on patient's age to complete this topic IPV Vaccines Aged Out No longer eligi ble based on patient's age to complete this topic Meningococcal B Vaccine Aged Out No l onger eligible based on patient's age to complete this topic Meningococcal Vaccine Aged Out No josé mendez eligible based on patient's age to complete this topic Rotavirus Vaccines Aged Out No longer eligible based on patient's age to complete this topic Procedures Procedure Name Priority Date/Time Associated Diagnosis Comments LEXISCAN STRESS MYOCARDIAL PERFUSION IMAGING Routine 01/02/2025 3:06 PM EDT from Last 3 Months Results * Lexiscan Stress Myocardial Perfusion Imaging (01/02/2025 3:06 PM EDT) Anatomical Region Laterality Modality Other Historical Provider CV STRESS PROCEDURES Melva philip Result from Last 3 Months Insurance Care Teams Campus Recruiting Intern Relationship Specialty Start Date End Date Katalina Colbert MD [address] [place] [address] PCP - General Nurse Practitioner 01/14/25
--- OUTSIDE RECORDS SUMMARY | 2025-01-31 07:50 | XMS_ITS | Encounter Summary ---
Author Organization [facility] Address [address] [place] [address] Care Team Providers Care Commission Sales Associate Name Role Phone Katalina Colbert NP Unavailable [phone] Kervin Stevens MD Primary Care Provider [phone] Encounter Details Date Type Department Care Team (Late st Contact Info) Description 01/22/2025 Bamboo flowsheet [facility] OBEM [address] [place] [address] Alexa Pulliam, CN [address] [place], [place] [id number] Social History Tobacco Use Types Packs/Day Years [...] any clubs o r organizations such as mandaeism groups, unions, fraternal or athletic groups, or [...] medical care, and heating? Somewhat hard 08/13/2024 [facility] of Occupat ional Health - Occupational Stress [...] in a usp (including now)? No 06/02/2023 Housing Stability Vital [...] were you homeless or living in a usp (including now)? No 08/13/2024 Comments No Sex [...] Visit [facility] [address] [place] [address] Katalina Colbert NP [address] [place] [address] 05/15/2025 1:00 PM EST Office Visit [facility] [address] [place] [address] Alexa Pulliam CNM [address] [place], [place] [address] documented as of this encounter Goals Goal [...] documented as of this encounter Care Teams Commission Sales Associate Relationship Specialty Start Date End Date Kervin Stevens MD [address] [place] [address] PCP - General Family Medicine 06/01/23 Katalina Colbert NP [address] [place] [address] Nurse Practitioner Family Medicine 03/06/23 documented as of this encounter
--- OUTSIDE RECORDS SUMMARY | 2025-01-31 07:50 | XMS_ITS | Encounter Summary ---
Author Organization [facility] Address [address] [place] [address] Care Team Providers Care Turbine Inspector Name Role Phone Katalina Colbert QUALITY CONTROL REPRESENTATIVE Unavailable [phone] Kervin Stevens MD Primary Care Provider [phone] Encounter Details Date Type Department Care Team (Late st Contact Info) Description 09/27/2023 Orders Only [facility] [address] [place] [address] [address] [id number] Social History Tobacco Use Types Packs/Day Years [...] often do you attend chur ch or anglican services? More than 4 times per year [...] medical care, and heating? Somewhat hard 06/02/2023 [facility] of Occupat ional Health - Occupational [...] health care facility (including now)? No 06/02/2023 Comments Unknown Sex [...] Office Visit [facility] [address] [place] [address] Katalina Colbert NP [address] [place] [address] 05/15/2025 1:00 PM EST Office Visit [facility] [address] [place] [address] Alexa Pulliam CNM [address] [place] [address] documented as of this encounter Procedures Procedure Name Priority Date/Time Associated Diagnosis Comments SCANNED LABS Routine 09/27/2023 9:47 AM EDT documented in this encounter Results * SCANNED LABS (09/27/2023 9:47 AM EDT) Maninder Holt DO LAB CHG PERFORMABLES Final Re sult documented in this encounter Visit Diagnoses Not on filedocumented in this encounter Care Teams Turbine Inspector Relationship Specialty Start Date End Date Kervin Stevens MD [address] [place] [address] PCP - General Family Medicine 06/01/23 Katalina Colbert NP [address] [place] [address] Nurse Practitioner Family Medicine 03/06/23 documented as of this encounter
--- OUTSIDE RECORDS SUMMARY | 2025-01-31 07:50 | XMS_ITS | Encounter Summary ---
Author Organization [facility] Address [address] [place] [address] Care Team Providers Care Proposal Analyst Name Role Phone Katalina Colbert CUSTOMER SUPPORT PROFESSIONAL Unavailable [phone] Kervin Stevens MD Primary Care Provider [phone] Encounter Details Date Type Department Care Team (Late st Contact Info) Description 06/09/2023 Abstract [facility] [address] [place] [address] Katalina Colbert NP [address] [place] [address] Social History Tobacco Use Types Packs/Day Years [...] How often do you attend chur or mormon services? More than 4 times per year 06/02/2023 Do you belong to any clubs o r organizations such as latter day groups, unions, fraternal or athletic groups, or [...] medical care, and heating? Somewhat hard 06/02/2023 [facility] of Occupat ional Health - Occupational Stress [...] Office Visit [facility] [address] [place] [address] Katalina Colbert NP [address] [place] [address] 05/15/2025 1:00 PM EST Office Visit [facility] [address] [place] [address] Alexa Pulliam CNM [address] [place], [place] [address] documented as of this encounter Visit Diagnoses Not on filedocumented in this encounter Care Teams Proposal Analyst Relationship Specialty Start Date End Date Kervin Stevens MD [address] [place] [address] PCP - General Family Medicine 06/01/23 Katalina Colbert NP [address] [place] [address] Nurse Practitioner Family Medicine 03/06/23 documented as of this encounter
--- OUTSIDE RECORDS SUMMARY | 2025-01-31 07:50 | XMS_ITS | Encounter Summary ---
Author Organization [facility] Address [address] [place] [address] Care Team Providers Care Switchboard Operator Receptionist Name Role Phone Katalina Colbert COVER REMOVER Unavailable [phone] Kervin Stevens MD Primary Care Provider [phone] Reason for Visit * Reason Comments Med Refill Encounter Details Date Type Department Care Team (Late st Contact Info) Description 08/03/2023 Refill [facility] [address] [place] [address] Katalina Colbert, COVER REMOVER [address] [place] [address] Anxiety and depression (Primary Dx); [...] week 06/02/2023 How [facility] you [facility] or [facility] services? More than 4 times per year 06/02/2023 Do you belong to any clubs o r organizations such as yarsani groups, unions, fraternal or athletic groups, or [...] medical care, and heating? Somewhat hard 06/02/2023 [facility] of Occupat ional Health - Occupational [...] Office Visit [facility] [address] [place] [address] Katalina Colbert NP [address] [place] [address] 05/15/2025 1:00 PM EST Office Visit [facility] [place] [facility] [address] [place] [address] Alexa Pulliam CNM [address] [place] [address] documented as of this encounter Visit Diagnoses Diagnosis Anxiety and depression- Primary Mixed hyperlipidemia Mixed hyperlipidemia documented in this encounter Care Teams Switchboard Operator Receptionist Relationship Specialty Start Date End Date Kervin Stevens MD [address] [place] [address] PCP - General Family Medicine 06/01/23 Katalina Colbert NP [address] [place] [address] Nurse Practitioner Family Medicine 03/06/23 documented as of this encounter
--- OUTSIDE RECORDS SUMMARY | 2025-01-31 07:50 | XMS_ITS | Encounter Summary ---
Author Organization [facility] Address [address] [place] [address] Care Team Providers Care Chlorine Cell Tender Name Role Phone Katalina Colbert ARCHITECTURE INTERN Unavailable [phone] Kervin Stevens MD Primary Care Provider [phone] Encounter Details Date Type Department Care Team (Late st Contact Info) Description 05/04/2023 Clinisync Result Encounter [facility] External Department Unsolicited Katalina Colbert NP [address] [place] [address] Social History Tobacco Use Types Packs/Day Years [...] 02/05/2025 11:30 AM EDT [facility] [address] [place] [address] Katalina Colbert NP [address] [place] [address] 05/15/2025 1:00 PM EST Office Visit [facility] [place] [facility] [place] [address] Alexa Pulliam, CNM [address] [place] [address] documented as of this encounter Procedures Procedure Name Priority Date/Time Associated Diagnosis Comments MM TOMOSYNTHESIS SCREENING BI 05/04/2023 12:55 PM EST documented in this encounter Results * MM TOMOSYNTHESIS SCREENING BI (05/04/2023 12:55 PM EST) Anatomical Region Laterality Modality Other 05/04/2023 12:5 5 PM EST Narrative 05/04/2023 12:55 PM EST [address] [address] Mammography Report Signed Patient: KATALINA HUTCHINS MR#: [id number] : 1965 Acct:[id number] Age/Sex: 58 / F ADM Date: 04/29/23 Loc: MAMMO Attending Dr: Katalina Colbert NP Ordering Physician: Katalina Colbert NP Results: Date of Service: 04/29/23 Follow Up: Procedure(s): MM tomosynthesis screening BI Accession Number(s): [id number] cc: Katalina Colbert NP Patient Name: KATALINA HUTCHINS MR#: [id number] : 1965 Exam Date: 04/29/2023 Ordering Doctor: TARIK Colbert LAUNDRY WORKER RADIOLOGY REPORT PROCEDURE: MM TOMOSYNTHESIS SCREENING BI [...] uterine cancer at age 28. LOCATION: [facility] BREAST COMPOSITION: Scattered areas fibroglandular density. [...] Signed By: 05/04/23 1256 DD/ 1255 TD/TT: Tester Sound: Procedure Note Radiology, Radiologist, MD - 05/04/2023 [place] [address] Mammography Report Signed Patient: KATALINA HUTCHINS MMR#: [id number] : 1965Acct:[id number] Age/Sex: 58 / FADM Date: 04/29/23 Loc: MAMMO Attending Dr: Katalina Colbert NP Ordering Physician: Katalina Colbert NPResults: Date of Service: 04/29/23Follow Up: Procedure(s): MM tomosynthesis screening BI Accession Number(s): [id number] cc: Katalina Colbert NP Patient Name: KATALINA HUTCHINS MR#: [id number] : 1965 Exam Date: 04/29/2023 Ordering Doctor: TARIK Colbert LAUNDRY WORKER RADIOLOGY REPORT PROCEDURE: MM TOMOSYNTHESIS SCREENING BI [...] uterine cancer at age 28. LOCATION: [facility] BREAST COMPOSITION: Scattered areas fibroglandular density. [...] M.D. Signed By:05/04/23 1256 DD/ 1255 TD/TT: Tester Sound: us Katalina Colbert NP [facility] Final Result documented in this encounter Visit Diagnoses Not on filedocumented in this encounter Care Teams Chlorine Cell Tender Relationship Specialty Start Date End Date Kervin Stevens MD [address] [place] [address] PCP - General Family Medicine 06/01/23 Katalina Colbert NP [address] [place] [address] Nurse Practitioner Family Medicine 03/06/23 documented as of this encounter
--- OUTSIDE RECORDS SUMMARY | 2025-01-31 07:50 | XMS_ITS | Clinical Summary ---
Author Organization [facility] Address [id number] [address] [place] [address] Care Team Providers Care Public Affairs Director Name Role Phone Kervin Stevens MD Primary Care Provider [phone] Allergies Active Allergy Reactions Criticality Noted Date [...] Maintenance Insurance [employer] [place] [id number] Care Teams Public Affairs Director Relationship Specialty Start Date End Date Kervin Stevens MD PCP - General 08/11/17
--- OUTSIDE RECORDS SUMMARY | 2025-01-31 07:50 | XMS_ITS | Encounter Summary ---
Author Organization [facility] Address [address] [place] [address] Care Team Providers Care Arrt Technologist Name Role Phone Katalina Colbert GLUE MOUNTER OPERATOR Unavailable [phone] Kervin Stevens MD Primary Care Provider [phone] Encounter Details Date Type Department Care Team [...] How often do you attend chur or pentecostalism services? More than 4 times per year 08/13/2024 Do you belong to any clubs o r organizations such as restorationist groups, unions, fraternal or athletic groups, or [...] medical care, and heating? Somewhat hard 08/13/2024 [facility] of Occupat ional Health - Occupational Stress [...] time in the past 12 m [facility], were you homeless or living in a assisted (including now)? No 08/13/2024 Comments No Sex [...] Office Visit [facility] [address] [place] [address] Katalina Colbert NP [address] [place] [address] 05/15/2025 1:00 PM EST Office Visit [facility] [address] [place] [address] Alexa Pulliam CNM [address] [place] [address] documented as of this encounter Goals Goal [...] documented as of this encounter Care Teams Arrt Technologist Relationship Specialty Start Date End Date Kervin Stevens MD [address] [place] [address] PCP - General Family Medicine 06/01/23 Katalina Colbert NP [address] [place] [address] Nurse Practitioner Family Medicine 03/06/23 documented as of this encounter
--- OUTSIDE RECORDS SUMMARY | 2025-01-31 07:55 | XMS_ITS | CCD ---
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 Name Role Phone FilemonKatalina Catina Primary Care Provider Aicholz TARIK, Katalina Catina Primary Care Provider [phone] Zion Pringle MD Unavailable [phone] Aicholz ENTRY CLERK, Katalina Catina Primary Care Provider [phone] Zion Pringle MD Unavailable Aicholz ENTRY CLERK, Katalina Catina Primary Care Provider Aicholz ENTRY CLERK, Katalina Catina Primary Care Provider [phone] Zion Pringle MD Anthony Unavailable DR WILLY PRINGLE Consulting Unavailable AICHHOLZ, ENTRY CLERK KATALINA Primary Care Unavailable DR WILLY PRINGLE Attending Unavailable DR WILLY PRINGLE Admitting Unavailable JOSE ALEJANDROMARTINA GRAFF Consulting Unavailable HELEN, DR GEN Donovan Attending UnavailDR GEN Hoover Admitting Unavailabl e AICHHOLZ, ENTRY CLERK KATALINA Primary Care Unavailable Srinivas, Deonna Consulting Unavailable DORENE ., YULIYA Consulting Unavailable AICHHOLZ, ENTRY CLERK KATALINA Consulting Unavailable AICHHOLZ, ENTRY CLERK KATALINA Primary Care Unavailable AICHHOLZ, ENTRY CLERK KATALINA Attending Unavailable AICHHOLZ, ENTRY CLERK KATALINA Admitting Unavailable AICHHOLZ, ENTRY CLERK KATALINA Consulting Unavailable AICHHOLZ, ENTRY CLERK KATALINA Primary Care Unavailable AICHHOLZ, ENTRY CLERK KATALINA Attending Unavailable AICHHOLZ, ENTRY CLERK KATALINA Admitting Unavailable AICHHOLZ, ENTRY CLERK KATALINA Consulting Unavailable AICHHOLZ, ENTRY CLERK KATALINA Primary Care Unavailable AICHHOLZ, ENTRY CLERK KATALINA Attending Unavailable AICHHOLZ, ENTRY CLERK KATALINA Admitting Unavailable DR JILL JEAN Consulting Unavailable ENGELER, DR WILLY Marlow Consulting Unavailable AICHHOLZ, ENTRY CLERK KATALINA Primary Care Unavailable ENGELEAnahi, DR WILLY Marlow Attending Unavailable ENGELER, DR WILLY Marlow Admitting Unavailable AICHHOLZ, ENTRY CLERK KATALINA Consulting Unavailable AICHHOLZ, ENTRY CLERK KATALINA Attending Unavailable AICHHOLZ, ENTRY CLERK KATALINA Admitting Unavailable PINO, DR WILLY Marlow Consulting Unavailable AICHHOLZ, ENTRY CLERK KATALINA Primary Care Unavailable ENGELEAnahi, DR WILLY Marlow Attending Unavailable ENGELER, DR WILLY Marlow Admitting Unavailable AICHHOLZ, ENTRY CLERK KATALINA Consulting Unavailable AICHHOLZ, ENTRY CLERK KATALINA Primary Care Unavailable AICHHOLZ, ENTRY CLERK KATALINA Attending Unavailable AICHHOLZ, ENTRY CLERK KATALINA Admitting Unavailable AICHHOLZ, ENTRY CLERK KATALINA Consulting Unavailable AICHHOLZ, ENTRY CLERK KATALINA Primary Care Unavailable AICHHOLZ, ENTRY CLERK KATALINA Attending Unavailable AICHHOLZ, ENTRY CLERK KATALINA Admitting Unavailable Aichholz 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, Katalina Unavailable Kervin Gunter MD Primary Care Provider RAMONITA TATE Attending Unavailable KERVIN GUNTER Referring Unavailable KERVIN GUNTER Primary Care Unavailable LATOSHA CORBETT Admitting Unavailable LATOSHA CORBETT Attending Unavailable ARIC LATOSHA E Referring Unavailable KERVIN GUNTER Primary Care Unavailable LIV AZAR Attending Unavailable JANI, KERVIN Primary Care Unavailable JUSTINS LATOSHA E Attending Unavailable ARIC, LATOSHA E Referring Unavailable KERVIN GUNTER Primary Care Unavailable Aichholz ENTRY CLERK, Katalina Catina Primary Care Provider [phone] Aichholz 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, Katalina Unavailable Kervin Gunter MD Primary Care Provider [phone] Zion Pringle MD Unavailable [phone] Kervin Gunter MD Primary Care Provider [phone] Zion PRINGLE Referring Unavailable AICHJUANY, KATALINA CATINA Primary Care Unavailable Zion PRNIGLE Attending Unavailable Zion PRINGLE Referring Unavailable Zion PRINGLE Attending Unavailable AICHOLJaskaran, KATALINA CATINA Primary Care Unavailable Zion PRINGLE Referring Unavailable Zion PRINGLE Attending Unavailable KATALINA COLBERT Primary Care Unavailable Zion PRINGLE Referring Unavailable Zion PRINGLE Attending Unavailable KATALINA COLBERT Primary Care Unavailable WILLY HUA Attending Unavailable SARAH KHAN Attending Unavailable KATALINA COLBERT Attending Unavailable KATALINA COLBERT Attending Unavailable RITA PULLIAM Attending Unavailable RITA PULLIAM Attending Unavailable KATALINA COLBERT Attending Unavailable SARAH KHAN Attending Unavailable KATALINA COLBERT Attending Unavailable Allergies Allergy Classification Reported Allergen(s) Allergy Type Date of Onset Reaction(s) Facility (20 sources) Adhesive agent; Translations: [ADHESIVE] Drug Allergy 2 Rash [facility] (1 source) Desonide Drug Allergy [facility] (4 sources) Latex; Translations: [LATEX] Drug allergy (disorder) 9 [facility] (20 sources) Latex Allergy to substance 9 Other, [facility] Work Phone: (20 sources) Wound Dressing Adhesive Drug Allergy 2 [facility] (2 sources) Latex Propensity to adverse reactions to drug 9 [facility] Medications Current Medications Medication Drug Class(es) Dates Sig (Normalized) Sig (Original) [id number] 200 actuat albuterol 0.09 mg/actuat metered dose [...] capsule (20 sources) Vitamin D Start: 07-17-19 End: 01-13-20 25 take 1 capsule by [...] / norethindrone acetate 0.5 mg oral tablet (13 sources) Estrogen Start: 12-12-19 End: 01-23-20 norethindrone-ethiny [...] 2 diabetes mellitus 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, unspecified whether chargemaster analyst insulin use (HCC) Inject 60 Units under the skin at bedtime 54 mL 1 09/07/2024 03/06/2025 Active Start: 06-08-2024 End: 09-07-2024 Lantus SoloStar 100 UNIT/ML pen Indications: Type 2 diabetes mellitus 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, unspecified whether chargemaster analyst insulin use (CMS/HCC) INJECT 60 UNITS SUBCUTANEOUSLY [...] 2 diabetes mellitus 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, unspecified whether fci insulin use (HCC) INJECT 15-20-25 UNITS ACCORDING [...] multivitamin (THERAGRAN) tab let (2 sources) multivitamin ( ERAGRAN) tablet Take 1 tablet by mouth. Active multivitamin ( ERAGRAN) tablet Take 1 tablet by mouth. [...] 2 diabetes mellitus 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, unspecified whether fci insulin use (HCC) Take 1 tablet by mouth once daily 90 tablet 1 01/08/2025 Active Start: 06-04-2024 take 1 tablet by lukas th once daily SITagliptin (Januvia) 100 MG tablet Indications: Type 2 diabetes mellitus with hyperglycemia, unspecified whether fci insulin use (HCC) Take 1 tablet by [...] Comment on above: Take 1 tablet by [facility] every 8 hours as needed for Pain. [...] on above: Take 3 tablets by mo [facility] once daily. GLUCOSAMINE/CHONDROITI N SULF A [...] 1 tablet by lukas th once daily. Wqeug-8-IHC-EPA-Fish Oil 1,200 (144-216) mg cap (7 sources) Qnyxo-3-FFH-EPA- F ronaldo Oil 1,200 (144-216) mg cap [...] sources) Long-term current use of insulin; Translations: [group home (current) use of insulin] 03-08-2024 Episodic Other [...] UNCOMP] Onset: 06-22-2022 Chronic Superficial injury; contusion (6 sources) Contusion of right knee; Translations: [Contusion [...] history of colon cancer Onset: 09-27-2023 Unclassified (8 sources) Patient on antidepressant monitoring plan Onset: 01-08-2025 01-08-2025 Unclassified (8 sources) Baseline PHQ-9 Onset: 01-08-2025 01-08-2025 Past or Other Problems Problem Classification Problem Date Documented Da te Episodic/Chronic Mycoses (20 sources) Candidiasis of vagina; Translations: [Yeast infection of the vagina] Onset: 04-09-2024 04-09-2024 Episodic Other aftercare (1 source) group home (current) use of aspirin; Translations: [SENIOR CARE CURRENT USE OF ASPIRIN] Onset: 06-22-2022 Episodic Other aftercare (1 source) Other chargemaster analyst (current) drug therapy; Translations: [OTH SENIOR CARE CURRENT DRUG THERAPY] Onset: 06-22-2022 Episodic Other aftercare (1 source) group home (current) use of oral hypoglycemic drugs; Translations: [CHARTER COORDINATOR USE ORAL HYPOGLYCEMIC DX] Onset: 06-22-2022 Episodic Other aftercare (1 source) group home (current) use of insulin; Translations: [CHARTER COORDINATOR CURRENT USE OF INSULIN] Onset: 06-01-2022 Episodic [...] Test Name Value Interpretation Reference Range Facility XR Knee - left [address] [address] XRay Report Signed Patient: KATALINA HUTCHINS MR#: [id number] : 1965 Acct:[id number] Age/Sex: 60 / F ADM Date: 01/30/25 Loc: [facility] Attending Dr: Katalina Colbert NP Ordering Physician: Katalina Colbert NP Date of Service: 01/30/25 Procedure(s): XR knee LT 4V Accession Number(s): [id number] cc: Katalina Colbert NP The [place] [address] Patient Name: KATALINA HUTCHINS MRN: [facility]:[id number] date: 1965 Sex: F Assigned Patient Location: [facility] Current Patient Location: CARD Accession/Order Number: [id number] Exam Date: 01/30/2025 13:30 Report Date: 01/30/2025 [...] Chandler M.D. 01/30/2025 1:58 PM Dictation Location: [place] [address] Electronically authenticated by: [id number] Y Date: 01/30/2025 13:58 Dictated By: Annia Chandler M.D. Signed By: 01/30/25 1400 DD/ 1358 TD/TT: Zoning Assistant: [facility] RadiologyRanjitogthor hand MD - 01/30/2025 [place] [address] XRay Report Signed Patient: KATALINA HUTCHINS MR#: [id number] : 1965 Acct:[id number] Age/Sex: 60 / F ADM Date: 01/30/25 Loc: RAD Attending Dr: Katalina Colbert NP Ordering Physician: Katalina Colbert NP Date of Service: 01/30/25 Procedure(s): XR knee LT 4V Accession Number(s): [id number] cc: Katalina Colbert NP [place] [address] Patient Name: KATALINA HUTCHINS MRN: [id number] date: 1965 Sex: F Assigned Patient Location: [facility] Current Patient Location: CARD Accession/Order Number: [id number] Exam Date: 01/30/2025 13:30 Report Date: 01/30/2025 [...] Chandler M.D. 01/30/2025 1:58 PM Dictation Location: [place] [address] Electronically authenticated by: [id number] Y Date: 01/30/2025 13:58 Dictated By: Annia Chandler M.D. Signed By: 01/30/25 1400 DD/ 1358 TD/TT: Zoning Assistant: [facility] Radiology Study observation (narrative) [facility] XR Knee - left 4 ViewsOrdere d By: Radiologist Radiology on 01-30-2025 [facility] [employer] Work Phone: Office Visiton 01-14-2025 Follow-up visit [id number] Bertha Hutchins sa 1965 F Date Provider Department Center 01/14/2025 WILLY KHANNA BH CARD [facility] Family History Problem Relation Age of Onset Parkinsonism Mother Coronary artery disease Mother Coronary artery disease Father Family Status - Relation Status Age at Mother Father Alive Level of Service:87821 GA OFFICE/OUTPATIENT [facility] 60 MINUTES Normal [facility] Orders Onlyon 01-14-2025 Orders Only [id number] Bertha Hutchins sa 1965 F Date Provider Department Center 01/14/2025 [id number], HISTORICAL [facility] Family History Problem Relation Age of Onset Parkinsonism Mother Coronary artery disease Mother Coronary artery disease Father Family Status - Relation Status Age at Mother Father Alive Normal [facility] NM LACEY PERF SPECT REST STRon 01-11-2025 [place] [address] Nuclear Medicine Report Signed Patient: KATALINA HUTCHINS MR#: [id number] : 1965 Acct:[id number] Age/Sex: 59 / F ADM Date: 01/01/25 Loc: CARD Attending Dr: Katalina Colbert NP Ordering Physician: Katalina Colbert NP Date of Service: 01/01/25 Procedure(s): NM lacey perf SPECT rest str Accession Number(s): [id number] cc: Katalina Colbert NP Patient Name: KATALINA HUTCHINS MR#: [id number] : 1965 Exam Date: 01/01/2025 Ordering Doctor: [...] the study was pending per attending physician [facility] . For more details please [...] Signed By: 01/11/25 1744 DD/ 174 TD/TT: Zoning Assistant: [facility] Radiology, Radiologthor hand MD - 01/11/2025 [place] [address] Nuclear Medicine Report Signed Patient: KATALINA HUTCHINS MR#: [id number] : 1965 Acct:[id number] Age/Sex: 59 / F ADM Date: 01/01/25 Loc: CARD Attending Dr: Katalina Colbert NP Ordering Physician: Katalina Colbert NP Date of Service: 01/01/25 Procedure(s): NM lacey perf SPECT rest str Accession Number(s): [id number] cc: Katalina Colbert NP Patient Name: KATALINA HUTCHINS MR#: [id number] : 1965 Exam Date: 01/01/2025 Ordering Doctor: [...] the study was pending per attending physician [facility] . For more details please [...] MD on 01/11/2025 at 17:36 Approved by: Lilima Andrews MD on 01/11/2025 at 17:43 Dictated By: Liliam Andrews M.D. Signed By: 01/11/251743 DD/ 42 TD/TT: Zoning Assistant: [facility] Radiology Study observation (narrative) [facility] NM LACEY PERF SPECT REST STROr dered By: Radiologist Radiology on 01-11-2025 [facility] Work Phone: [facility] 11-22-2024 [facility] Telephone ([facility]) KATALINA HUTCHINS ([id number]) 1965 F Date Time Provider Department 11/22/24 Zino PRINGLE During your visit today, we recorded the following information about you: Argenis Reynolds, RN 11/22/2024 7:58 AM Signed Call placed [...] copy of all lab orders. Thank you SHAYAL Prasad Deidre 11/26/2024 12:48 PM Signed Appointment made and mailed as requested. ELLA Contreras Allergies As of Date: 11/22/2024 Noted Allergy Reaction ADHESIVE 05/11/2012 2 - Rash Date Reviewed: 09/16/2020 Reviewed by: Kaitlynn Carreon (Gagandeep)SHAYLA - Fully Assessed Reason for Visit: Results [95] Future Appointment [256] Primary Visit Diagnosis:History of thyroid cancer [Z85.850] Order(s):T4/THYROXINE [SQT4] Order #: [id number] FUTURE THYROID STIMULATING HORMONE [SQTSH] Order #: [id number] FUTURE THYROGLOBULIN, SERUM WITH REFLEX TO IA OR LC-MS/MS [SQTHYRORF] Order #: [id number] FUTURE Prescriptions as of 11/26/2024 - levothyroxine [...] Encounter Status:Closed by Zion PRINGLE on 11/22/[address] [facility] 11-13-2024 [facility] Telephone ([employer] KATALINA HUTCHINS ([id number]) 1965 F Date Time Provider Department 11/13/24 Zion PRINGLE During your visit today, we recorded the following information about you: Argenis Reynolds, RN 11/13/2024 9:46 AM Signed Call placed to [facility] due to still not having TG total result. Per lab, they checked with lab pam this am and result still pending. PSS- please call pt and delay phone appt 1 week so we have result. Thank you Argenis Reynolds RN Martina Guzman 11/13/2024 10:01 AM Signed Lvm for patient to call back and move phone visit appt out a week. ELLA Mathews Martina Guzman 11/13/2024 1:31 PM Signed Spoke [...] Status:Closed by ARGENIS REYNOLDS on 11/15/24 Normal [facility] ALL CBC WITH AUTO DIFFon BASOPHILS ABSOLUTE AUTO 0.1 [facility] Basophils/100 WBC (Bld) 0.8 % 0.2 - 2.0 % [facility] Eosinophils/100 WBC (Bld) 1.8 % 0.9 - 7.0 % [facility] Erythrocyte distribution width (RBC) [Ratio] 15.6 % High 11.0 - 15.0 % [facility] Hematocrit (Bld) [Volume fraction] 37.4 % 36.0 - 48.0 % [facility] Hemoglobin (Bld) [Mass/Vol] 12.7 g/dL 12.0 - 16.0 g/dL [facility] IMMATURE GRANULOCYTES ABS AUTO 0.03 [facility] Immature granulocytes/100 WBC (Bld) 0.4 % 0.0 - 0.5 % [facility] Interpretation and review of laboratory results Abnormal [facility] LYMPHOCYTES ABSOLUTE AUTO 2 [facility] Lymphocytes/100 WBC (Bld) 28.3 % 20.5 - 60.0 % [facility] MCH (RBC) [Entitic mass] 27.9 pg 26.7 - 34.0 pg [facility] MCHC (RBC) [Mass/Vol] 34 g/dL 29.9 - 35.2 g/dL [facility] MCV (RBC) [Entitic vol] 82.2 fL 81.0 - 99.0 fL [facility] MONOCYTES ABSOLUTE AUTO 0.6 [facility] Monocytes/100 WBC (Bld) 7.8 % 1.7 - 12.0 % [facility] NEUTROPHILS ABSOLUTE AUTO 4.3 [facility] Neutrophils/100 WBC (Bld) 60.9 % 43.0 - 75.0 % [facility] Platelet mean volume (Bld) [Entitic vol] 10.7 fL 9.5 - 13.5 fL [facility] TB EO # 0.1 [facility] PLT [address] [facility] RBC 4.55 [facility] WBC 7.1 [facility] CNPNon 07-24-2024 CNP Telephone (RADTSA) KATALINA HUTCHINS ([id number]) 1965 F Date Time Provider Department 07/24/24 [...] months out. Please fax lab orders to [place] once signed and also mail paper copy of all orders to patient. Thank you SHAYLA Prasad Jodi 07/24/2024 2:19 PM Signed Patient scheduled for 3 month phone visit. Just waiting on orders to be signed to be mailed to patient and faxed to [place]. Myriam Jewell 07/24/2024 4:01 PM Signed Orders faxed to [facility] and mailed to patient home. Allergies As of Date: 07/24/2024 Noted Allergy Reaction ADHESIVE 05/11/2012 2 - Rash Date Reviewed: 09/16/2020 Reviewed by: Kaitlynn Carreon (Gagandeep), RN - Fully Assessed Reason for Visit: Lab Orders [1688] Patient Update [1234] Future Appointment [256] Primary Visit Diagnosis:History of thyroid cancer [Z85.850] Order(s):T4/THYROXINE [SQT4] Order #: [id number] FUTURE THYROID STIMULATING HORMONE [SQTSH] Order #: [id number] FUTURE THYROGLOBULIN, SERUM WITH REFLEX TO IA OR LC-MS/MS [SQTHYRORF] Order #: [id number] FUTURE Prescriptions as of 07/24/2024 - levothyroxine [...] Status:Closed by MYRIAM JEWELL on 07/24/24 Normal [facility] Glucose (Bld) [Mass/Vol]on 0 07-13-2024 Glucose Blood, POC 286 mg/dL [facility] Laboratory - Hematology and Cell countson 07-13-2024 HbA1c (Bld) [Mass fraction] 9.5 % [facility] No Panel Informationon 07-13 Interpretation and review of laboratory results Abnormal Replaced by [facility] ALL THYROID STIM HORMONEon 0 06-12-2024 TSH Qn 2.668 m[IU]/L [facility] ALL THYROXINE (T4)on 025 Interpretation and review of laboratory results Abnormal [facility] T4 [Mass/Vol] 16.3 ug/dL High 4.80 - 13.90 ug/dL [facility] No Panel Informationon 06-12 [facility] CNPNon 03-22-2024 TARIK Telephone ([facility]ERA) KATALINA HUTCHINS ([id number]) 1965 F Date Time Provider Department 03/22/24 Zion PRINGLE During your visit today, we recorded the following information about you: Argenis Reynolds, RN 03/22/2024 2:46 PM Signed PSS-Per Dr Pringle, he was unable to reach pt for her phone visit. He would like patient to have labs rechecked and then a phone visit in July. These labs will take 7-10 days, so pt will need to have phone visit scheduled 2 weeks after labs. Once signed, please fax orders to [place] and also mail paper copy to patient. Dr Pringle- please sign pended orders for February and synthroid refill so pt will not run out again. Thank you SHAYLA Prasad Jodi 03/23/2024 7:10 AM Signed Watching for signed orders and will finish Myriam Jewell 03/23/2024 10:45 AM Signed Faxed orders to [facility]. To be drawn by 07/11 to [...] (Gagandeep)SHAYLA - Fully Assessed Reason for Visit: Lab Orders [1688] Future Appointment [256] Primary Visit Diagnosis:History of thyroid cancer [Z85.850] Order(s):T4/THYROXINE [SQT4] Order #: [id number] FUTURE THYROID STIMULATING HORMONE [SQTSH] Order #: [id number] FUTURE THYROGLOBULIN, SERUM WITH REFLEX TO IA OR LC-MS/MS [SQTHYRORF] Order #: [id number] FUTURE levothyroxine (SYNTHROID) 200 mcg tabletTake 1 [...] Encounter Status:Closed by ARGENIS REYNOLDS on 03/26/24 Normal [facility] ALL THYROID STIM HORMONEon 1 Interpretation and review of laboratory results Abnormal [facility] TSH Qn 8.949 m[IU]/L High [facility] ALL THYROXINE (T4)on 024 T4 [Mass/Vol] 10.90 ug/dL 4.80 - 13.90 ug/dL [facility] No Panel Informationon 03-15 [facility] Glucose (Bld) [Mass/Vol]on 1 Glucose Blood, POC 144 mg/dL [facility] Interpretation and review of laboratory results Abnormal [facility] HbA1c (Bld) [Mass fraction]o n 03-08-2024 Interpretation and review of laboratory results Normal [facility] - Hematology and Cell countson 03-08-2024 HbA1c (Bld) [Mass fraction] 7.2 % [facility] No Panel Informationon 03-08 [facility] Glucose Glucometer (BldC) [M ass/Vol]on 09-27-2023 Glucose [Mass/Vol] 169 mg/dL High 65-99 [facility] Surgical Pathologyon 024 Surgical Pathology Normal [facility] Comment on above: Result Comment: [facility] [address] [place] [address] Surgical Pathology Consultation Patient Name:KATALINA HUTCHINS:1965 (Age: 58)Gender:FTaken:09/27/2023eported:09/29/2023hysician(s):Latosha Corbett D.O. ([phone])Copy To: Rec. #:[id number]: #[id number] Final Pathologic Diagnosis Transverse colon polyp: Tubular adenoma fragments. Report Electronically Signed Out /09/29/2023Bee Montalvo MD Interpretation performed at [facility] [place], [address] [place] [address], License number: [id number]. Clinical History Family history of colon cancer. Gross Description Received in formalin labeled evan HUTCHINS is a single medellin strip of soft tissue, 1.1 cm in greatest dimension. Filtered and submitted in a single cassette. (1, ns, [id number], m7) MG mjg/09/27/2023NSK Specimen(s) Received Transverse colon polyp Fee Codes(s): 1; 54361 CBC AUTO DIFFon 10-12-2022 BASO # 0.1 103/ul Normal 0.0-0.1 [facility] Comment on above: Performed By: #### C BC #### [facility] [address] [place] [address] [address] Karena Montero Basophils/100 WBC (Bld) 0.8 % Normal 0.2-2.0 [facility] Comment on above: Performed By: #### C BC #### [facility] [address] [place] [address] [address] Karena Montero EO # 0.2 103/ul Normal 0.0-0.7 [facility] Comment on above: Performed By: #### C BC #### [facility] [address] [place] [address] [address] Karena Montero Eosinophils/100 WBC (Bld) 2.5 % Normal 0.9-7.0 [facility] Comment on above: Performed By: #### C BC #### [facility] [address] [place] [address] [address] Karena Montero Erythrocyte distribution width (RBC) [Ratio] 14.5 % Normal 11.0-15.0 [facility] Comment on above: Performed By: #### C BC #### [facility] [address] [place] [address] Dr. Karena Montero Hematocrit (Bld) [Volume fraction] 42.9 % Normal 36.0-48.0 [facility] Comment on above: Performed By: #### C BC #### [facility] [address] [place] [address] [address] Karena Montero Hemoglobin (Bld) [Mass/Vol] 14.3 g/dL Normal 12.0-16.0 [facility] Comment on above: Performed By: #### C BC #### [facility] [address] [place] [address] [address] Karena Montero IG # 0.02 10e3/ul Normal 0.00-0.03 [facility] Comment on above: Performed By: #### C BC #### [facility] [address] [place] [address] Dr. Karena Montero IG % 0.3 % Normal 0.0-0.5 [facility] Comment on above: Performed By: #### C BC #### [facility] [address] [place] [address] Dr. Karena Montero LYMPH # 1.6 103/ul Normal 1.2-3.8 [facility] Comment on above: Performed By: #### C BC #### [facility] [address] [place] [address] Dr. Karena Montero Lymphocytes/100 WBC (Bld) 27.2 % Normal 20.5-60.0 [facility] Comment on above: Performed By: #### C BC #### [facility] [address] [place] [address] Dr. Karena Montero MANUAL DIFF REQ NO Normal [facility] Comment on above: Performed By: #### C BC #### [facility] [address] [place] [address] Dr. Karena Montero MCH (RBC) [Entitic mass] 28.9 pg Normal 26.7-34.0 [facility] Comment on above: Performed By: #### C BC #### [facility] [address] [place] [address] Dr. Karena Montero MCHC (RBC) [Mass/Vol] 33.3 g/dL Normal 29.9-35.2 [facility] Comment on above: Performed By: #### C BC #### [facility] [address] [place] [address] Dr. Karena Montero MCV (RBC) [Entitic vol] 86.8 fL Normal 81.0-99.0 [facility] Comment on above: Performed By: #### C BC #### [facility] [address] [place] [address] Dr. Karena Montero MONO # 0.5 103/ul Normal 0.3-0.8 [facility] Comment on above: Performed By: #### C BC #### [facility] [address] [place] [address] Dr. Karena Montero Monocytes/100 WBC (Bld) 8.5 % Normal 1.7-12.0 [facility] Comment on above: Performed By: #### C BC #### [facility] [address] [place] [address] Dr. Karena Montero NEUT # 3.7 103/ul Normal 1.4-6.5 [facility] Comment on above: Performed By: #### C BC #### [facility] [address] [place] [address] Dr. Karena Montero Neutrophils/100 WBC (Bld) 60.7 % Normal 43.0-75.0 [facility] Comment on above: Performed By: #### C BC #### [facility] [address] [place] [address] Dr. Karena Montero Platelet mean volume (Bld) [Entitic vol] 10.2 fL Normal 9.5-13.5 [facility] Comment on above: Performed By: #### C BC #### [facility] [address] [place] [address] Dr. Karena Montero PLT 214 103/ul Normal 150-450 [facility] Comment on above: Performed By: #### C BC #### [facility] [address] [place] [address] Dr. Karena Montero RBC 4.94 106/ul Normal 4.20-5.40 [facility] Comment on above: Performed By: #### C BC #### [facility] [address] [place] [address] Dr. Karena Montero WBC 6.0 103/ul Normal 4.0-11.0 [facility] Comment on above: Performed By: #### C BC #### [facility] [address] [place] [address] Dr. Karena Montero GLYCOHEMOGLOBIN A1Con 2022 ADA RECOMMENDATION SEE BELOW Normal [facility] Comment on above: Result Comment: ADA RECOMMENDED LIMIT 4.0 - 6.0 ADA THERAPEUTIC TARGET < 7.0 ACTION SUGGESTED > 7.0 Performed By: #### C BC #### [facility] [address] [address] [address] Karena Montero Glucose [Mass/Vol] 292 mg/dL Normal [facility] Comment on above: Performed By: #### C BC #### [facility] [id number] Karena Montero HbA1c (Bld) [Mass fraction] 11.8 % Critically high 4.5-6.2 [facility] Comment on above: Performed By: #### C BC #### [facility] [address] [address] [address] Karena Montero LIPID PROFILEon 10-12-2022 CHOL-HDL RATIO NORM SEE BELOW Normal [facility] Comment on above: Result Comment: 3.3 - 4.4 LOW RISK 4.4 - 7.1 AVERAGE RISK 7.1 - 11.0 MODERATE RISK >11.0 HIGH RISK Performed By: #### C BC #### [facility] [address] [address] [address] Karena Montero Cholesterol [Mass/Vol] 199 mg/dL Normal <=200 [facility] Comment on above: Performed By: #### C BC #### [facility] [address] [address] [address] Karena Montero Cholesterol in HDL [Mass/Vol] 63 mg/dL Critically high 40-60 [facility] Comment on above: Performed By: #### C BC #### [facility] [address] [address] [address] Karena Montero Cholesterol in LDL [Mass/Vol] 119.8 mg/dL Normal [facility] Comment on above: Performed By: #### C BC #### [facility] [id number] Karena Montero Cholesterol.total/C holesterol in HDL [Mass ratio] 3.2 {ratio} Normal [facility] Comment on above: Performed By: #### C BC #### [facility] [address] [address] [address] Karena Montero HDL NORMAL > or = 60 mg/dl - LO W CARDIOVASCULAR RISK <40 mg/dl - HIGH CARDIOVASCULAR RISK Normal [facility] Comment on above: Performed By: #### C BC #### [facility] [address] [place] [address] Dr. Karena Montero LDL CALC NORMAL SEE BELOW Normal [facility] Comment on above: Result Comment: <100 mg/dl OPTIMAL 100 - 129 mg/dl NEAR OR ABOVE OPTIMAL 130 - 159 mg/dl BORDERLINE HIGH 160 - 189 mg/dl HIGH >190 mg/dl VERY HIGH Performed By: #### C BC #### [facility] [address] [address] [address] Karena Montero Triglyceride [Mass/Vol] 81 mg/dL Normal <=150 [facility] Comment on above: Performed By: #### C BC #### [facility] [address] [place] [address] Dr. Karena Montero VLDL CALC 16.2 mg/dL Normal [facility] Comment on above: Performed By: #### C BC #### [facility] [address] [place] [address] Dr. Karena Montero MICROALBUMIN, RAND URon 05-0 mALB 4.5 mg/L Normal <=30.0 [facility] Comment on above: Performed By: #### M ALBR #### [facility] [address] [place] [address] Dr. Karena Montero PROF 14(COMP METB)on 023 Albumin [Mass/Vol] 3.3 g/dL Critically low 3.4-5.0 [facility] Comment on above: Performed By: #### C BC #### [facility] [address] [place] [address] Dr. Karena Montero Albumin/Globulin [Mass ratio] 0.7 {ratio} Normal [facility] Comment on above: Performed By: #### C BC #### [facility] [address] [place] [address] Dr. Karena Montero ALP [Catalytic activity/Vol] 45 U/L Critically low 46-116 [facility] Comment on above: Performed By: #### C BC #### [facility] [address] [address] [address] Karena Montero ALT [Catalytic activity/Vol] 46 U/L Normal 14-59 [facility] Comment on above: Performed By: #### C BC #### [facility] [address] [place] [address] Dr. Karena Montero Anion gap [Moles/Vol] 12.5 mmol/L Normal [facility] Comment on above: Performed By: #### C BC #### [facility] [address] [address] [address] Karena Montero AST [Catalytic activity/Vol] 50 U/L Critically high 15-37 [facility] Comment on above: Performed By: #### C BC #### [facility] [address] [place] [address] Dr. Karena Montero Bilirubin [Mass/Vol] 0.9 mg/dL Normal 0.2-1.0 [facility] Comment on above: Performed By: #### C BC #### [facility] [address] [place] [address] Dr. Karena Montero Calcium [Mass/Vol] 9.5 mg/dL Normal 8.5-10.1 [facility] Comment on above: Performed By: #### C BC #### [facility] [address] [place] [address] Dr. Karena Montero Chloride [Moles/Vol] 102 mmol/L Normal 98-107 [facility] Comment on above: Performed By: #### C BC #### [facility] [address] [address] [address] Karena Montero CO2 [Moles/Vol] 29.4 mmol/L Normal 21.0-32.0 [facility] Comment on above: Performed By: #### C BC #### [facility] [address] [place] [address] Dr. Karena Montero Creatinine [Mass/Vol] 0.89 mg/dL Normal 0.55-1.02 [facility] Comment on above: Performed By: #### C BC #### [facility] [address] [place] [address] Dr. Karena Montero EGFR-AF GHANAIAN >60 Normal >=60 [facility] Comment on above: Performed By: #### C BC #### [facility] [address] [address] [address] Karena Montero EGFR-NON AF GHANAIAN >60 Normal >=60 [facility] Comment on above: Performed By: #### C BC #### [facility] [address] [address] [address] Karena Montero Globulin (S) [Mass/Vol] 4.6 g/dL Normal [facility] Comment on above: Performed By: #### C BC #### [facility] [address] [address] [address] Karena Montero Glucose [Mass/Vol] 163 mg/dL Critically high 74-106 [facility] Comment on above: Performed By: #### C BC #### [facility] [address] [address] [address] Karena Montero Potassium [Moles/Vol] 4.9 mmol/L Normal 3.5-5.1 [facility] Comment on above: Performed By: #### C BC #### [facility] [address] [address] [address] Karena Montero Protein [Mass/Vol] 7.9 g/dL Normal 6.4-8.2 [facility] Comment on above: Performed By: #### C BC #### [facility] [address] [address] [address] Karena Montero Sodium [Moles/Vol] 139 mmol/L Normal 136-145 [facility] Comment on above: Performed By: #### C BC #### [facility] [address] [address] [address] Karena Montero Urea nitrogen [Mass/Vol] 11.0 mg/dL Normal 7.0-18.0 [facility] Comment on above: Performed By: #### C BC #### [facility] [address] [address] [address] Karena Montero Urea nitrogen/Creatinine [Mass ratio] 12.4 mg/mg Normal [facility] Comment on above: Performed By: #### C BC #### [facility] [address] [address] [address] Karena Montero UA RANDOM W/MICROSCOPICon BACTERIA TRACE Abnormal NONE SEEN [facility] Comment on above: Performed By: #### M RUBY #### [facility] [address] [address] [address] Karena Montero Bilirubin Ql (U) Negative Normal NEGATIVE [facility] Comment on above: Performed By: #### M RUBY #### [facility] [address] [address] [address] Karena Montero CAST SEEN Abnormal NONE SEEN [facility] Comment on above: Performed By: #### M RUBY #### [facility] [address] [address] [address] Karena Montero Clarity (U) CLEAR Normal CLEAR [facility] Comment on above: Performed By: #### M RUYB #### [facility] [address] [address] [address] Karena Montero Color (U) YELLOW Normal YELLOW [facility] Comment on above: Performed By: #### M RUBY #### [facility] [address] [address] [address] Karena Montero Crystals LM Nom (Urine sed) NONE SEEN Normal NONE SEEN [facility] Comment on above: Performed By: #### M RUBY #### [facility] [address] [place] [address] Dr. Karena Montero Epithelial cells LM Ql (Urine sed) RARE Normal NONE SEEN /RARE [facility] Comment on above: Performed By: #### M RUBY #### [facility] [address] [address] [address] Karena Montero Glucose Ql (U) Negative Normal NEGATIVE [facility] Comment on above: Performed By: #### M RUBY #### [facility] [address] [address] [address] Karena Montero Hemoglobin Ql (U) Negative Normal NEGATIVE [facility] Comment on above: Performed By: #### M RUBY #### [facility] [address] [address] [address] Karena Montero HYALINE CAST RARE Normal [facility] Comment on above: Performed By: #### M RUBY #### [facility] [address] [address] [address] Karena Montero Ketones Ql (U) Negative Normal NEGATIVE [facility] Comment on above: Performed By: #### M RUBY #### [facility] [address] [address] [address] Karena Montero LEUKOCYTES SMALL Abnormal NEGATIVE [facility] Comment on above: Performed By: #### M RUBY #### [facility] [address] [address] [address] Karena Montero MUCOUS NONE SEEN Normal NONE SEEN [facility] Comment on above: Performed By: #### M RUBY #### [facility] [address] [address] [address] Karena Montero Nitrite Ql (U) Negative Normal NEGATIVE [facility] Comment on above: Performed By: #### M RUBY #### [facility] [address] [place] [address] Dr. Karena Montero pH (U) 5.0 [pH] Normal 5-9 [facility] Comment on above: Performed By: #### M RUBY #### [facility] [address] [place] [address] Dr. Karena Montero RBC 0-2 Normal 0-2 [facility] Comment on above: Performed By: #### M RUBY #### [facility] [address] [place] [address] Dr. Karena Montero SPEC GRAVITY >=1.030 Abnormal 1.005-<=1.025 [facility] Comment on above: Performed By: #### M RUBY #### [facility] [address] [place] [address] Dr. Karena Montero UA PROTEIN TRACE Normal NEGATIVE/ TRACE [facility] Comment on above: Performed By: #### M RUBY #### [facility] [address] [place] [address] Dr. Karena Montero Urobilinogen Qn (U) 4 {Emily'U}/dL Abnormal 0.2 - 1.0 [facility] Comment on above: Performed By: #### M RUBY #### [facility] [address] [place] [address] Dr. Karena Montero WBC 10-20 Abnormal NONE SEEN [facility] Comment on above: Performed By: #### M RUBY #### [facility] [address] [place] [address] Dr. Karena Montero T3, TOTAL (TRIIODOTHYRONINE) on 09-10-2022 T3, TOTAL 92 ng/dL Normal 71-180 [facility] Comment on above: Performed By: #### C BC #### [facility] [address] [place] [address] Dr. Karena Montero T4on 09-08-2022 T4 [Mass/Vol] 11.70 ug/dL Normal 4.80-13.90 [facility] Comment on above: Performed By: #### T 4, TSH #### [facility] [address] [place] [address] Dr. Karena Montero TSHon 09-08-2022 TSH 10.637 uIU/mL Critically high 0.358-3.740 [facility] Comment on above: Performed By: #### T 4, TSH #### [facility] [address] [place] [address] NECK ST W [...] DEONNA CHERRY Date: 2022-06-20 22:08 Normal [facility] CBC AUTO DIFFon 06-20-2022 BASO # 0.1 103/ul Normal 0.0-0.1 [facility] Comment on above: Performed By: #### T 4, TSH #### [facility] [address] [place] [address] Dr. Karena Montero Basophils/100 WBC (Bld) 0.9 % Normal 0.2-2.0 [facility] Comment on above: Performed By: #### T 4, TSH #### [facility] [address] [place] [address] Dr. Karena Montero EO # 0.1 103/ul Normal 0.0-0.7 [facility] Comment on above: Performed By: #### T 4, TSH #### [facility] [address] [place] [address] Dr. Karena Montero Eosinophils/100 WBC (Bld) 0.5 % Critically low 0.9-7.0 [facility] Comment on above: Performed By: #### T 4, TSH #### [facility] [address] [place] [address] Dr. Karena Montero Erythrocyte distribution width (RBC) [Ratio] 13.8 % Normal 11.0-15.0 [facility] Comment on above: Performed By: #### T 4, TSH #### [facility] [address] [place] [address] Dr. Karena Montero Hematocrit (Bld) [Volume fraction] 39.7 % Normal 36.0-48.0 [facility] Comment on above: Performed By: #### T 4, TSH #### [facility] [address] [place] [address] Dr. Karena Montero Hemoglobin (Bld) [Mass/Vol] 13.7 g/dL Normal 12.0-16.0 [facility] Comment on above: Performed By: #### T 4, TSH #### [facility] [address] [place] [address] Dr. Karena Montero IG # 0.06 10e3/ul Critically high 0.00-0.03 [facility] Comment on above: Performed By: #### T 4, TSH #### [facility] [address] [place] [address] Dr. Karena Montero IG % 0.6 % Critically high 0.0-0.5 [facility] Comment on above: Performed By: #### T 4, TSH #### [facility] [address] [place] [address] Dr. Karena Montero LYMPH # 2.0 103/ul Normal 1.2-3.8 [facility] Comment on above: Performed By: #### T 4, TSH #### [facility] [address] [place] [address] Dr. Karena Montero Lymphocytes/100 WBC (Bld) 19.1 % Critically low 20.5-60.0 [facility] Comment on above: Performed By: #### T 4, TSH #### [facility] [address] [place] [address] Dr. Karena Montero MANUAL DIFF REQ NO Normal [facility] Comment on above: Performed By: #### T 4, TSH #### [facility] [address] [place] [address] Dr. Karena Montero MCH (RBC) [Entitic mass] 28.8 pg Normal 26.7-34.0 [facility] Comment on above: Performed By: #### T 4, TSH #### [facility] [address] [place] [address] Dr. Karena Montero MCHC (RBC) [Mass/Vol] 34.5 g/dL Normal 29.9-35.2 [facility] Comment on above: Performed By: #### T 4, TSH #### [facility] [address] [place] [address] Dr. Karena Montero MCV (RBC) [Entitic vol] 83.4 fL Normal 81.0-99.0 [facility] Comment on above: Performed By: #### T 4, TSH #### [facility] [address] [place] [address] Dr. Karena Montero MONO # 0.9 103/ul Critically high 0.3-0.8 [facility] Comment on above: Performed By: #### T 4, TSH #### [facility] [address] [place] [address] Dr. Karena Montero Monocytes/100 WBC (Bld) 8.2 % Normal 1.7-12.0 [facility] Comment on above: Performed By: #### T 4, TSH #### [facility] [address] [place] [address] Dr. Karena Montero NEUT # 7.5 103/ul Critically high 1.4-6.5 [facility] Comment on above: Performed By: #### T 4, TSH #### [facility] [address] [place] [address] Dr. Karena Montero Neutrophils/100 WBC (Bld) 70.7 % Normal 43.0-75.0 [facility] Comment on above: Performed By: #### T 4, TSH #### [facility] [address] [place] [address] Dr. Karena Montero Platelet mean volume (Bld) [Entitic vol] 10.5 fL Normal 9.5-13.5 [facility] Comment on above: Performed By: #### T 4, TSH #### [facility] [address] [place] [address] Dr. Karena Montero PLT 253 103/ul Normal 150-450 [facility] Comment on above: Performed By: #### T 4, TSH #### [facility] [address] [place] [address] Dr. Karena Montero RBC 4.76 106/ul Normal 4.20-5.40 [facility] Comment on above: Performed By: #### T 4, TSH #### [facility] [address] [place] [address] Dr. Karena Montero WBC 10.6 103/ul Normal 4.0-11.0 [facility] Comment on above: Performed By: #### T 4, TSH #### [facility] [address] [place] [address] Dr. Karena Montero CULTURE BLOODon 06-20-2022 Microscopic examination of blood, culture Culture Observations: NO GROWTH AT 5 DAYS. Normal [facility] Comment on above: Performed By: #### T 4, TSH #### [facility] [address] [place] [address] Dr. Karena Montero Microscopic examination of blood, culture Culture Observations: NO GROWTH AT 5 DAYS. Normal [facility] Comment on above: Performed By: #### T 4, TSH #### [facility] [address] [place] [address] Dr. Karena Montero LACTATE/LACTIC ACIDon 2022 Lactate [Moles/Vol] 1.5 mmol/L Normal 0.4-1.9 [facility] Comment on above: Performed By: #### T 4, TSH #### [facility] [address] [place] [address] Dr. Karena Montero MONOon 06-20-2022 Monocytes (Bld) [#/Vol] Negative Normal NEGATIVE [facility] Comment on above: Performed By: #### M RUBY #### [facility] [address] [place] [address] Dr. Karena Montero PROF 14(COMP METB)on 023 Albumin [Mass/Vol] 3.1 g/dL Critically low 3.4-5.0 [facility] Comment on above: Performed By: #### C MP #### [facility] [address] [place] [address] Dr. Karena Montero Albumin/Globulin [Mass ratio] 0.6 {ratio} Normal [facility] Comment on above: Performed By: #### C MP #### [facility] [address] [place] [address] Dr. Karena Montero ALP [Catalytic activity/Vol] 47 U/L Normal 46-116 [facility] Comment on above: Performed By: #### C MP #### [facility] [address] [place] [address] Dr. Karena Montero ALT [Catalytic activity/Vol] 20 U/L Normal 14-59 [facility] Comment on above: Performed By: #### C MP #### [facility] [address] [place] [address] Dr. Karena Montero Anion gap [Moles/Vol] 11.1 mmol/L Normal [facility] Comment on above: Performed By: #### C MP #### [facility] [address] [place] [address] Dr. Karena Montero AST [Catalytic activity/Vol] 24 U/L Normal 15-37 [facility] Comment on above: Performed By: #### C MP #### [facility] [address] [place] [address] Dr. Karena Montero Bilirubin [Mass/Vol] 1.5 mg/dL Critically high 0.2-1.0 [facility] Comment on above: Performed By: #### C MP #### [facility] [address] [place] [address] Dr. Karena Montero Calcium [Mass/Vol] 9.4 mg/dL Normal 8.5-10.1 [facility] Comment on above: Performed By: #### C MP #### [facility] [address] [address] [address] Karena Montero Chloride [Moles/Vol] 94 mmol/L Critically low 98-107 [facility] Comment on above: Performed By: #### C MP #### [facility] [address] [place] [address] Dr. Karena Montero CO2 [Moles/Vol] 27.9 mmol/L Normal 21.0-32.0 [facility] Comment on above: Performed By: #### C MP #### [facility] [address] [address] [address] Karena Montero Creatinine [Mass/Vol] 0.85 mg/dL Normal 0.55-1.02 [facility] Comment on above: Performed By: #### C MP #### [facility] [address] [address] [address] Karena Montero EGFR-AF GHANAIAN >60 Normal >=60 [facility] Comment on above: Performed By: #### C MP #### [facility] [address] [address] [address] Karena Montero EGFR-NON AF GHANAIAN >60 Normal >=60 [facility] Comment on above: Performed By: #### C MP #### [facility] [address] [place] [address] Dr. Karena Montero Globulin (S) [Mass/Vol] 5.3 g/dL Normal [facility] Comment on above: Performed By: #### C MP #### [facility] [address] [address] [address] Karena Montero Glucose [Mass/Vol] 204 mg/dL Critically high 74-106 [facility] Comment on above: Performed By: #### C MP #### [facility] [address] [place] [address] Dr. Karena Montero Potassium [Moles/Vol] 3.0 mmol/L Critically low 3.5-5.1 [facility] Comment on above: Performed By: #### C MP #### [facility] [address] [place] [address] Dr. Karena Montero Protein [Mass/Vol] 8.4 g/dL Critically high 6.4-8.2 [facility] Comment on above: Performed By: #### C MP #### [facility] [address] [place] [address] Dr. Karena Montero Sodium [Moles/Vol] 130 mmol/L Critically low 136-145 [facility] Comment on above: Performed By: #### C MP #### [facility] [address] [address] [address] Karena Montero Urea nitrogen [Mass/Vol] 10.0 mg/dL Normal 7.0-18.0 [facility] Comment on above: Performed By: #### C MP #### [facility] [address] [address] [address] Karena Montero Urea nitrogen/Creatinine [Mass ratio] 11.8 mg/mg Normal [facility] Comment on above: Performed By: #### C MP #### [facility] [address] [address] [address] Karena Montero STREPT SCREENon 06-20-2022 STREP SCREEN A Positive Abnormal NEGATIVE [facility] Comment on above: Performed By: #### C BC #### [facility] [address] [place] [address] Dr. Karena Montero THYROGLOBULIN AB AND THYROGL OBULINon 05-29-2022 Thyroglobulin Antibody <1.0 Normal 0.0-0.9 [facility] Comment on above: Result Comment: Thyr oglobulin Antibody measured by Ewa Swampscott Methodology Performed By: #### T HYGIMA #### [facility] [address] [place] [address] Dr. Karena Montero Thyroglobulin by ZACK <0.1 Critically low 1.5-38.5 [facility] Comment on above: Result Comment: Acco [...] 0.1 ng/mL . Thyroglobulin measured by Ewa Swampscott Immunometric Assay Performed By: #### T HYGIMA #### [facility] [address] [place] [address] Dr. Karena Montero T3, TOTAL (TRIIODOTHYRONINE) on 05-28-2022 T3, TOTAL 77 ng/dL Normal 71-180 [facility] Comment on above: Performed By: #### C BC #### [facility] [address] [address] [address] Karena Montero GLYCOHEMOGLOBIN A1Con 2021 ADA RECOMMENDATION SEE BELOW Normal [facility] Comment on above: Result Comment: ADA RECOMMENDED LIMIT 4.0 - 6.0 ADA THERAPEUTIC TARGET < 7.0 ACTION SUGGESTED > 7.0 Performed By: #### T 4, TSH #### [facility] [address] [address] [address] Karena Montero Glucose [Mass/Vol] 252 mg/dL Normal [facility] Comment on above: Performed By: #### T 4, TSH #### [facility] [address] [place] [address] Dr. Karena Montero HbA1c (Bld) [Mass fraction] 10.4 % Critically high 4.5-6.2 [facility] Comment on above: Performed By: #### T 4, TSH #### [facility] [address] [place] [address] Dr. Karena Montero PROF CHEM 8 (BAS METB)on Anion gap [Moles/Vol] 11.2 mmol/L Normal [facility] Comment on above: Performed By: #### C BC #### [facility] [address] [place] [address] Dr. Karena Montero Calcium [Mass/Vol] 9.2 mg/dL Normal 8.5-10.1 [facility] Comment on above: Performed By: #### C BC #### [facility] [address] [place] [address] Dr. Karena Montero Chloride [Moles/Vol] 98 mmol/L Normal 98-107 [facility] Comment on above: Performed By: #### C BC #### [facility] [address] [place] [address] Dr. Karena Montero CO2 [Moles/Vol] 30.4 mmol/L Normal 21.0-32.0 [facility] Comment on above: Performed By: #### C BC #### [facility] [address] [place] [address] Dr. Karena Montero Creatinine [Mass/Vol] 0.99 mg/dL Normal 0.55-1.02 [facility] Comment on above: Performed By: #### C BC #### [facility] [address] [address] [address] Karena Montero EGFR-AF GHANAIAN >60 Normal >=60 [facility] Comment on above: Performed By: #### C BC #### [facility] [address] [address] [address] Karena Montero EGFR-NON AF GHANAIAN 58 mL/min/1.73m2 Critically low >=60 [facility] Comment on above: Performed By: #### C BC #### [facility] [address] [address] [address] Karena Montero Glucose [Mass/Vol] 274 mg/dL Critically high 74-106 [facility] Comment on above: Performed By: #### C BC #### [facility] [address] [address] [address] Karena Montero Potassium [Moles/Vol] 3.6 mmol/L Normal 3.5-5.1 [facility] Comment on above: Performed By: #### C BC #### [facility] [address] [address] [address] Karena Montero Sodium [Moles/Vol] 136 mmol/L Normal 136-145 [facility] Comment on above: Performed By: #### C BC #### [facility] [address] [address] [address] Karena Montero Urea nitrogen [Mass/Vol] 13.0 mg/dL Normal 7.0-18.0 [facility] Comment on above: Performed By: #### C BC #### [facility] [address] [address] [address] Karena Montero Urea nitrogen/Creatinine [Mass ratio] 13.1 mg/mg Normal [facility] Comment on above: Performed By: #### C BC #### [facility] [address] [address] [address] Karena Montero T4on 05-27-2022 T4 [Mass/Vol] 11.00 ug/dL Normal 4.80-13.90 [facility] Comment on above: Performed By: #### C BC #### [facility] [address] [address] [address] Karena Montero TSHon 05-27-2022 TSH 35.436 uIU/mL Critically high 0.358-3.740 [facility] Comment on above: Performed By: #### C BC #### [facility] [address] [address] [address] 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 LOCATION: [facility] BREAST COMPOSITION: Scattered areas fibroglandular density. [...] Jean M.D. on 04/28/2022 at 12:11 Normal [facility] PTH INTACTon 02-20-2022 PTH, Intact 11 pg/mL Critically low 15-65 [facility] Comment on above: Performed By: #### T 4, TSH #### [facility] [address] [address] [address] Karena Montero VIT D 25-OH [facility]on 2021 Vitamin D, 25-Hydroxy 43.2 ng/mL Normal 30.0-100.0 [facility] Comment on above: Result Comment: Yvonne min D deficiency has been defined by the [place] of [employer] and an Endocrine Society practice guideline as a level of serum 25-OH vitamin D less than 20 ng/mL (1,2). The Endocrine Society went on to further define vitamin D insufficiency as a level between 21 and 29 ng/mL (2). 1. IOM ([place] of [employer]). 2010. Dietary reference intakes for calcium and D. [place]: The National Academies Press. 2. Herminia MF, Jean Marie [place], Leigh LOYOLA, et al. Evaluation, treatment, and prevention of vitamin D deficiency: an Endocrine Society clinical practice guideline. JCEM. 2010; 96(7):1911-30. Performed By: #### M RUBY #### [facility] [address] [address] [address] Karena Montero CALCIUMon 02-18-2022 Calcium [Mass/Vol] 9.8 mg/dL Normal 8.5-10.1 [facility] Comment on above: Performed By: #### M RUBY #### [facility] [address] [address] [address] Karena Montero [facility] SARS-CoV-2 (COVID-19) RNA RADHA+probe Ql (Unsp spec) Not detected Normal NOT DETECTED [facility] Comment on above: Result Comment: This test is not yet approved or cleared by the [place] FDA. When there are no FDA-approved or cleared tests available, and other criteria are met, FDA can make tests available under an emergency access mechanism called an Emergency Use Authorization (EUA). The EUA for this test is supported by the [place] of Health and Human Service's (HHS's) declaration [...] SARS-CoV-2. Performed By: #### M RUBY #### [facility] [address] [place] [address] Dr. Karena Montero MICROALBUMIN URINEon 022 Albumin, Urine 64.2 ug/mL Normal Not Estab. [facility] Comment on above: Performed By: #### M ALBLC #### [facility] [address] [place] [address] Dr. Karena Montero T3, TOTAL (TRIIODOTHYRONINE) on 01-30-2022 T3, TOTAL 101 ng/dL Normal 71-180 [facility] Comment on above: Performed By: #### T 4, TSH #### [facility] [address] [place] [address] Dr. Karena Montero T4 [facility] 01-30-2022 T4 [Mass/Vol] 12.3 ug/dL Critically high 4.5-12.0 [facility] Comment on above: Performed By: #### M RUBY #### [facility] [address] [place] [address] Dr. Karena oMntero CBC AUTO DIFFon 01-29-2022 BASO # 0.1 103/ul Normal 0.0-0.1 [facility] Comment on above: Performed By: #### C BC #### [facility] [address] [place] [address] Dr. Karena Montero Basophils/100 WBC (Bld) 1.2 % Normal 0.2-2.0 [facility] Comment on above: Performed By: #### C BC #### [facility] [address] [place] [address] Dr. Karena Montero EO # 0.1 103/ul Normal 0.0-0.7 [facility] Comment on above: Performed By: #### C BC #### [facility] [address] [place] [address] Dr. Karena Montero Eosinophils/100 WBC (Bld) 2.6 % Normal 0.9-7.0 [facility] Comment on above: Performed By: #### C BC #### [facility] [address] [place] [address] Dr. Karena Montero Erythrocyte distribution width (RBC) [Ratio] 14.0 % Normal 11.0-15.0 [facility] Comment on above: Performed By: #### C BC #### [facility] [address] [place] [address] Dr. Karena Montero Hematocrit (Bld) [Volume fraction] 42.7 % Normal 36.0-48.0 [facility] Comment on above: Performed By: #### C BC #### [facility] [address] [place] [address] Dr. Karena Montero Hemoglobin (Bld) [Mass/Vol] 14.4 g/dL Normal 12.0-16.0 [facility] Comment on above: Performed By: #### C BC #### [facility] [address] [place] [address] Dr. Karena Montero IG # 0.01 10e3/ul Normal 0.00-0.03 [facility] Comment on above: Performed By: #### C BC #### [facility] [address] [place] [address] Dr. Karena Monteor IG % 0.2 % Normal 0.0-0.5 [facility] Comment on above: Performed By: #### C BC #### [facility] [address] [place] [address] Dr. Karena Montero LYMPH # 1.5 103/ul Normal 1.2-3.8 [facility] Comment on above: Performed By: #### C BC #### [facility] [address] [place] [address] Dr. Karena Montero Lymphocytes/100 WBC (Bld) 34.5 % Normal 20.5-60.0 [facility] Comment on above: Performed By: #### C BC #### [facility] [address] [place] [address] Dr. Karena Montero MANUAL DIFF REQ NO Normal [facility] Comment on above: Performed By: #### C BC #### [facility] [address] [place] [address] Dr. Karena Montero MCH (RBC) [Entitic mass] 29.0 pg Normal 26.7-34.0 [facility] Comment on above: Performed By: #### C BC #### [facility] [address] [place] [address] Dr. Karena Montero MCHC (RBC) [Mass/Vol] 33.7 g/dL Normal 29.9-35.2 [facility] Comment on above: Performed By: #### C BC #### [facility] [address] [place] [address] Dr. Karena Montero MCV (RBC) [Entitic vol] 85.9 fL Normal 81.0-99.0 [facility] Comment on above: Performed By: #### C BC #### [facility] [address] [place] [address] Dr. Karena Montero MONO # 0.4 103/ul Normal 0.3-0.8 [facility] Comment on above: Performed By: #### C BC #### [facility] [address] [place] [address] Dr. Karena Montero Monocytes/100 WBC (Bld) 8.2 % Normal 1.7-12.0 [facility] Comment on above: Performed By: #### C BC #### [facility] [address] [place] [address] Dr. Karena Montero NEUT # 2.3 103/ul Normal 1.4-6.5 [facility] Comment on above: Performed By: #### C BC #### [facility] [address] [place] [address] Dr. Karena Montero Neutrophils/100 WBC (Bld) 53.3 % Normal 43.0-75.0 [facility] Comment on above: Performed By: #### C BC #### [facility] [address] [address] [address] Karena Montero Platelet mean volume (Bld) [Entitic vol] 11.6 fL Normal 9.5-13.5 [facility] Comment on above: Performed By: #### C BC #### [facility] [address] [address] [address] Karena Montero PLT 167 103/ul Normal 150-450 [facility] Comment on above: Performed By: #### C BC #### [facility] [address] [address] [address] Karena Montero RBC 4.97 106/ul Normal 4.20-5.40 [facility] Comment on above: Performed By: #### C BC #### [facility] [address] [place] [address] Dr. Karena Montero WBC 4.3 103/ul Normal 4.0-11.0 [facility] Comment on above: Performed By: #### C BC #### [facility] [address] [address] [address] Karena Montero GLYCOHEMOGLOBIN A1Con 2021 ADA RECOMMENDATION SEE BELOW Normal [facility] Comment on above: Result Comment: ADA RECOMMENDED LIMIT 4.0 - 6.0 ADA THERAPEUTIC TARGET < 7.0 ACTION SUGGESTED > 7.0 Performed By: #### A 1C #### [facility] [address] [place] [address] Dr. Karena Montero Glucose [Mass/Vol] 258 mg/dL Normal [facility] Comment on above: Performed By: #### A 1C #### [facility] [address] [place] [address] Dr. Karena Montero HbA1c (Bld) [Mass fraction] 10.6 % Critically high 4.5-6.2 [facility] Comment on above: Performed By: #### A 1C #### [facility] [address] [place] [address] Dr. Karena Montero LIPID PROFILEon 01-29-2022 CHOL-HDL RATIO NORM SEE BELOW Normal [facility] Comment on above: Result Comment: 3.3 - 4.4 LOW RISK 4.4 - 7.1 AVERAGE RISK 7.1 - 11.0 MODERATE RISK >11.0 HIGH RISK Performed By: #### M RUBY #### [facility] [address] [address] [address] Karena Montero Cholesterol [Mass/Vol] 160 mg/dL Normal <=200 [facility] Comment on above: Performed By: #### M RUBY #### [facility] [address] [address] [address] Karena Montero Cholesterol in HDL [Mass/Vol] 60 mg/dL Normal 40-60 [facility] Comment on above: Performed By: #### M RUBY #### [facility] [address] [address] [address] Karena Montero Cholesterol in LDL [Mass/Vol] 83.0 mg/dL Normal [facility] Comment on above: Performed By: #### M RUBY #### [facility] [address] [place] [address] Dr. Karena Montero Cholesterol.total/C holesterol in HDL [Mass ratio] 2.7 {ratio} Normal [facility] Comment on above: Performed By: #### M RUBY #### [facility] [address] [place] [address] Dr. Karena Montero HDL NORMAL > or = 60 mg/dl - LO W CARDIOVASCULAR RISK <40 mg/dl - HIGH CARDIOVASCULAR RISK Normal [facility] Comment on above: Performed By: #### M RUBY #### [facility] [address] [place] [address] Dr. Karena Montero LDL CALC NORMAL SEE BELOW Normal [facility] Comment on above: Result Comment: <100 mg/dl OPTIMAL 100 - 129 mg/dl NEAR OR ABOVE OPTIMAL 130 - 159 mg/dl BORDERLINE HIGH 160 - 189 mg/dl HIGH >190 mg/dl VERY HIGH Performed By: #### M RUBY #### [facility] [address] [place] [address] Dr. Karena Montero Triglyceride [Mass/Vol] 85 mg/dL Normal <=150 [facility] Comment on above: Performed By: #### M RUBY #### [facility] [address] [address] [address] Karena Montero VLDL CALC 17.0 mg/dL Normal [facility] Comment on above: Performed By: #### M RUBY #### [facility] [id number] Karena Montero PROF 14(COMP METB)on 022 Albumin [Mass/Vol] 3.3 g/dL Critically low 3.4-5.0 [facility] Comment on above: Performed By: #### M RUBY #### [facility] [address] [address] [address] Karena Montero Albumin/Globulin [Mass ratio] 0.8 {ratio} Normal [facility] Comment on above: Performed By: #### M RUBY #### [facility] [address] [place] [address] Dr. Karena Montero ALP [Catalytic activity/Vol] 47 U/L Normal 46-116 [facility] Comment on above: Performed By: #### M RUBY #### [facility] [address] [address] [address] Karena Montero ALT [Catalytic activity/Vol] 39 U/L Normal 14-59 [facility] Comment on above: Performed By: #### M RUBY #### [facility] [address] [place] [address] Dr. Karena Montero Anion gap [Moles/Vol] 14.2 mmol/L Normal [facility] Comment on above: Performed By: #### M RUBY #### [facility] [address] [place] [address] Dr. Karena Montero AST [Catalytic activity/Vol] 38 U/L Critically high 15-37 [facility] Comment on above: Performed By: #### M RUBY #### [facility] [address] [address] [address] Karena Montero Bilirubin [Mass/Vol] 0.9 mg/dL Normal 0.2-1.0 [facility] Comment on above: Performed By: #### M RUBY #### [facility] [address] [address] [address] Karena Montero Calcium [Mass/Vol] 10.2 mg/dL Critically high 8.5-10.1 [facility] Comment on above: Performed By: #### M RUBY #### [facility] [address] [place] [address] Dr. Karena Montero Chloride [Moles/Vol] 99 mmol/L Normal 98-107 [facility] Comment on above: Performed By: #### M RUBY #### [facility] [address] [address] [address] Karena Montero CO2 [Moles/Vol] 28.5 mmol/L Normal 21.0-32.0 [facility] Comment on above: Performed By: #### M RUBY #### [facility] [address] [place] [address] Dr. Karena Montero Creatinine [Mass/Vol] 0.97 mg/dL Normal 0.55-1.02 [facility] Comment on above: Performed By: #### M RUBY #### [facility] [address] [place] [address] Dr. Karena Montero EGFR-AF GHANAIAN >60 Normal >=60 [facility] Comment on above: Performed By: #### M RUBY #### [facility] [address] [place] [address] Dr. Karena Montero EGFR-NON AF GHANAIAN 60 mL/min/1.73m2 Normal >=60 [facility] Comment on above: Performed By: #### M RUBY #### [facility] [address] [address] [address] Karena Montero Globulin (S) [Mass/Vol] 4.3 g/dL Normal [facility] Comment on above: Performed By: #### M RUBY #### [facility] [address] [place] [address] Dr. Karena Montero Glucose [Mass/Vol] 303 mg/dL Critically high 74-106 [facility] Comment on above: Performed By: #### M RUBY #### [facility] [address] [place] [address] Dr. Karena Montero Potassium [Moles/Vol] 3.7 mmol/L Normal 3.5-5.1 [facility] Comment on above: Performed By: #### M RUBY #### [facility] [address] [address] [address] Karena Montero Protein [Mass/Vol] 7.6 g/dL Normal 6.4-8.2 [facility] Comment on above: Performed By: #### M RUBY #### [facility] [address] [address] [address] Karena Montero Sodium [Moles/Vol] 138 mmol/L Normal 136-145 [facility] Comment on above: Performed By: #### M RUBY #### [facility] [address] [place] [address] Dr. Karena Montero Urea nitrogen [Mass/Vol] 13.0 mg/dL Normal 7.0-18.0 [facility] Comment on above: Performed By: #### M RUBY #### [facility] [address] [place] [address] Dr. Karena Montero Urea nitrogen/Creatinine [Mass ratio] 13.4 mg/mg Normal [facility] Comment on above: Performed By: #### M RUBY #### [facility] [address] [place] [address] Dr. Karena Montero TSHon 01-29-2022 TSH 6.250 uIU/mL Critically high 0.358-3.740 [facility] Comment on above: Performed By: #### T 4, TSH #### [facility] [address] [place] [address] Dr. Karena Montero UA RANDOM W/MICROSCOPICon BACTERIA NONE SEEN Normal NONE SEEN [facility] Comment on above: Performed By: #### U AMIC #### [facility] [address] [place] [address] Dr. Karena Montero Bilirubin Ql (U) Negative Normal NEGATIVE [facility] Comment on above: Performed By: #### U AMIC #### [facility] [address] [place] [address] Dr. Karena Montero CAST NONE SEEN Normal NONE SEEN [facility] Comment on above: Performed By: #### U AMIC #### [facility] [address] [address] [address] Karena Montero Clarity (U) CLEAR Normal CLEAR [facility] Comment on above: Performed By: #### U AMIC #### [facility] [address] [address] [address] Karena Montero Color (U) YELLOW Normal YELLOW [facility] Comment on above: Performed By: #### U AMIC #### [facility] [address] [address] [address] Karena Montero Crystals LM Nom (Urine sed) NONE SEEN Normal NONE SEEN [facility] Comment on above: Performed By: #### U AMIC #### [facility] [address] [address] [address] Karena Montero Epithelial cells LM Ql (Urine sed) MODERATE Abnormal NONE SEEN /RARE [facility] Comment on above: Performed By: #### U AMIC #### [facility] [address] [address] [address] Karena Montero Glucose Ql (U) Negative Normal NEGATIVE [facility] Comment on above: Performed By: #### U AMIC #### [facility] [address] [address] [address] Karena Montero Hemoglobin Ql (U) Negative Normal NEGATIVE [facility] Comment on above: Performed By: #### U AMIC #### [facility] [address] [address] [address] Karena Montero Ketones Ql (U) Negative Normal NEGATIVE [facility] Comment on above: Performed By: #### U AMIC #### [facility] [address] [address] [address] Karena Montero LEUKOCYTES Negative Normal NEGATIVE [facility] Comment on above: Performed By: #### U AMIC #### [facility] [address] [address] [address] Karena Montero MUCOUS NONE SEEN Normal NONE SEEN [facility] Comment on above: Performed By: #### U AMIC #### [facility] [address] [address] [address] Karena Montero Nitrite Ql (U) Negative Normal NEGATIVE [facility] Comment on above: Performed By: #### U AMIC #### [facility] [address] [place] [address] Dr. Karena Montero pH (U) 5.5 [pH] Normal 5-9 [facility] Comment on above: Performed By: #### U AMIC #### [facility] [address] [place] [address] Dr. Karena Montero RBC 0-2 Normal 0-2 [facility] Comment on above: Performed By: #### U AMIC #### [facility] [address] [place] [address] Dr. Karena Montero SPEC GRAVITY >=1.030 Abnormal 1.005-<=1.025 [facility] Comment on above: Performed By: #### U AMIC #### [facility] [address] [place] [address] Dr. Karena Montero UA PROTEIN TRACE Normal NEGATIVE/ TRACE [facility] Comment on above: Performed By: #### U AMIC #### [facility] [address] [place] [address] Dr. Karena Montero Urobilinogen Qn (U) 1.0 {Emily'U}/dL Normal 0.2 - 1. 0 [facility] Comment on above: Performed By: #### U AMIC #### [facility] [address] [place] [address] Dr. Karena Montero WBC 0-2 Abnormal NONE SEEN [facility] Comment on above: Performed By: #### U AMIC #### [facility] [address] [place] [address] Dr. Karena Montero Vital Signs Date Time Vital Sign Value Performing Clinician Facility 01-22-2025 15:25-0400 Body mass index (BMI) [Ratio] 47.55 kg/m2 Rita MATOS Work Phone: [facility] 01-22-2025 15:25-0400 Body weight 125.65 kg Rita Floro CNM Work Phone: [facility] 01-22-2025 15:25-0400 Diastolic blood pressure 70 mm[Hg] Rita Pulliam CNM Work Phone: [facility] 01-22-2025 15:25-0400 Systolic blood pressure 120 mm[Hg] Rita Pulliam CNM Work Phone: [facility] 11-13-2024 15:15-0400 Body mass index (BMI) [Ratio] 49.57 kg/m2 Katalina Aichholz 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 Work Phone: [facility] 11-13-2024 15:15-0400 Body temperature 98.49 [degF] Katalina Aichholz 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 Work Phone: [facility] 11-13-2024 15:15-0400 Body weight 131 kg Katalina Aichholz 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 Work Phone: [facility] 11-13-2024 15:15-0400 Diastolic blood pressure 78 mm[Hg] Katalina Aichholz 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 Work Phone: [facility] 11-13-2024 15:15-0400 Heart rate 90 /min Katalina Aichholz 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 Work Phone: [facility] 11-13-2024 15:15-0400 Respiratory rate 22 /min Katalina Aichholz 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 Work Phone: [facility] 11-13-2024 15:15-0400 SaO2% (BldA) [Mass fraction] 99 % Katalina Aichholz 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 Work Phone: [facility] 11-13-2024 15:15-0400 Systolic blood pressure 130 mm[Hg] Katalina Aichholz 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 Work Phone: [facility] 08-13-2024 14:12-0400 Body height 162.6 cm Katalina Aichholz 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 Work Phone: [facility] 08-13-2024 14:12-0400 Body mass index (BMI) [Ratio] 50.19 kg/m2 Katalina Colbert 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 Work Phone: [facility] 08-13-2024 14:12-0400 Body temperature 98.4 [degF] Katalina Colbert 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 Work Phone: [facility] 08-13-2024 14:12-0400 Body weight 132.63 kg Katalina Colbert 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 Work Phone: [facility] 08-13-2024 14:12-0400 Diastolic blood pressure 72 mm[Hg] Katalina Colbert 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 Work Phone: [facility] 08-13-2024 14:12-0400 Heart rate 92 /min Katalina Colbert 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 Work Phone: [facility] 08-13-2024 14:12-0400 Respiratory rate 22 /min Katalina Colbert 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 Work Phone: [facility] 08-13-2024 14:12-0400 SaO2% (BldA) [Mass fraction] 95 % Katalina Colbert 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 Work Phone: [facility] 08-13-2024 14:12-0400 Systolic blood pressure 120 mm[Hg] Katalina Colbert 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 Work Phone: [facility] 07-13-2024 10:41-0500 Body height 162.6 cm Sarah Khan MD Work Phone: [facility] 07-13-2024 10:41-0500 Body mass index (BMI) [Ratio] 50.12 kg/m2 Sarah Khan MD Work Phone: [facility] 07-13-2024 10:41-0500 Body weight 132.45 kg Sarah Khan MD Work Phone: [facility] 07-13-2024 10:41-0500 Diastolic blood pressure 90 mm[Hg] Sarah Khan MD Work Phone: [facility] 07-13-2024 10:41-0500 Heart rate 109 /min Sarah Khan MD Work Phone: [facility] 07-13-2024 10:41-0500 Respiratory rate 18 /min Sarah Khan MD Work Phone: [facility] 07-13-2024 10:41-0500 SaO2% (BldA) [Mass fraction] 97 % Sarah Khan MD Work Phone: [facility] 07-13-2024 10:41-0500 Systolic blood pressure 180 mm[Hg] Sarah Khan MD Work Phone: [facility] 05-09-2024 13:36-0500 Diastolic blood pressure 84 mm[Hg] Katalina Filemon 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 Work Phone: [facility] 05-09-2024 13:36-0500 Systolic blood pressure 138 mm[Hg] Katalina Aichcaritoz 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 Work Phone: [facility] 05-09-2024 13:07-0500 Body height 162.6 cm Katalina Aichholz 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 Work Phone: [facility] 05-09-2024 13:07-0500 Body mass index (BMI) [Ratio] 50.29 kg/m2 Katalina Aichholz 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 Work Phone: [facility] 05-09-2024 13:07-0500 Body temperature 97.59 [degF] Katalina Dennysz 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 Work Phone: [facility] 05-09-2024 13:07-0500 Body weight 132.9 kg Katalina Alphonsehholz 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 Work Phone: [facility] 05-09-2024 13:07-0500 Heart rate 93 /min Katalina Aichholz 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 Work Phone: [facility] 05-09-2024 13:07-0500 Respiratory rate 22 /min Katalina Alphonsehholz 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 Work Phone: [facility] 05-09-2024 13:07-0500 SaO2% (BldA) [Mass fraction] 99 % Katalina Cunhajonathan 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 Work Phone: [facility] 03-08-2024 11:27-0400 Body height 162.6 cm Sarah Khan MD Work Phone: [facility] 03-08-2024 11:27-0400 Body mass index (BMI) [Ratio] 50.46 kg/m2 Sarah Khan MD Work Phone: [facility] 03-08-2024 11:27-040 Body weight 133.36 kg Sarah Khan MD Work Phone: [facility] 03-08-2024 11:27-040 Heart rate 87 /min Sarah Khan MD Work Phone: [facility] Comment on above: O2 SAT 98% 03-08-2024 11:27-040 Respiratory rate 20 /min Sarah Khan MD Work Phone: [facility] 02-08-2024 14:11-0400 Body height 162.6 cm Katalina Filemon 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 Work Phone: [facility] 02-08-2024 14:11-0400 Body mass index (BMI) [Ratio] 51.36 kg/m2 Katalina Makjuany 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 Work Phone: [facility] 02-08-2024 14:11-040 Body temperature 97.5 [degF] Katalina Filemon 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 Work Phone: [facility] 02-08-2024 14:11-0400 Body weight 135.72 kg Katalina Filemon 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 Work Phone: [facility] 02-08-2024 14:11-0400 Diastolic blood pressure 72 mm[Hg] Katalina Filemon 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 Work Phone: [facility] 02-08-2024 14:11-0400 Heart rate 87 /min Katalina Filemon 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 Work Phone: [facility] 02-08-2024 14:11-0400 Respiratory rate 21 /min Katalina Colbert 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 Work Phone: [facility] 02-08-2024 14:11-0400 SaO2% (BldA) [Mass fraction] 96 % Katalina Colbert 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 Work Phone: [facility] 02-08-2024 14:11-0400 Systolic blood pressure 126 mm[Hg] Katalina Colbert 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 Work Phone: [facility] 09-13-2023 10:18-0400 Body height 165.1 cm [employer] Work Phone: [employer] 09-13-2023 10:18-0400 Body mass index (BMI) [Ratio] 49.29 kg/m2 [employer] Work Phone: [employer] 09-13-2023 10:180400 Body weight 134.35 kg [employer] Work Phone: [facility] Encounters Encounter Date Encounter Type Care Provider Facility Start: 01-30-2025 End: 01-30-2025 Clinisync Result Encounter Katalina Colbert 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 Work Phone: [facility] External Department Unsolicited Start: 01-30-2025 End: 01-30-2025 Clinisync Result Encounter Katalina Colbert 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 Work Phone: [facility] External Department Unsolicited Start: 01-22-2025 End: 01-22-2025 Office outpatient visit 15 minutes Rita L Floro CNM Work Phone: [facility] Comment on above: Hot flashes (Primary Dx) Start: 01-22-2025 End: 01-22-2025 ambulatory RITA L FLORO Not Available Start: 01-22-2025 End: 01-22-2025 Bamboo flowsheet Rita L Floro CNM Work Phone: [facility] Start: 01-22-2025 End: 01-22-2025 Bamboo flowsheet Rita Pulliam CNM Work Phone: [facility] Start: 01-14-2025 End: 01-15-2025 ambulatory [facility] Start: 01-13-2025 End: 01-13-2025 Orders Only Katalina Aichholz 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 Work Phone: [facility] Comment on above: Abnormal stress test (Primary Dx) Start: 01-11-2025 End: 01-11-2025 Clinisync Result Encounter Katalina Aichholz 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 Work Phone: [facility] External Department Unsolicited Start: 01-11-2025 End: 01-11-2025 Clinisync Result Encounter Katalina Aichholz 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 Work Phone: [facility] External Department Unsolicited Start: 01-09-2025 End: 01-09-2025 Refill Katalina Aichholz 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 Work Phone: [facility] Comment on above: Mixed hyperlipidemia ; Other chronic pain; Allergic rhinitis, unspecified seasonality, unspecified trigger Start: 01-08-2025 End: 01-08-2025 Refill Katalina Aichholz 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 Work Phone: [facility] Comment on above: Essential hypertensi on ; Bilateral lower extremity edema; Uncontrolled type 2 diabetes mellitus with hyperglycemia, with long-term current use of insulin (HCC); Chronic pain syndrome; Anxiety and depression Start: 12-21-2024 End: 12-23-2024 Refill Katalina Aichholz 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 Work Phone: [facility] Comment on above: Uncontrolled type 2 diabetes mellitus with hyperglycemia, with long-term current use of insulin (HCC) Start: 12-12-2024 End: 12-12-2024 Telephone encounter Katalina Aichholz 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 Work Phone: [facility] Start: 12-11-2024 End: 12-11-2024 ambulatory RITA PULLIAM Not Available Start: 12-04-2024 End: 12-05-2024 Refill Katalina Filemon 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 Work Phone: [facility] Comment on [...] Office outpatient visit 25 minutes Katalina Filemon 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 Work Phone: [facility] Comment on [...] Start: 11-13-2024 End: 11-13-2024 Bamboo flowsheet Katalina Dennysz 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 Work Phone: [facility] Start: 11-13-2024 End: 11-13-2024 Bamboo flowsheet Katalina Aichholz 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 Work Phone: [facility] Start: 11-13-2024 End: 11-15-2024 Telephone encounter Zion Pringle MD Work Phone: Radiation Oncology Comment on above: Results; Patient Upd ate; Future Appointment Start: 11-08-2024 ambulatory Zion Silva ity:[facility] Start: 11-05-2024 End: 11-05-2024 Refill Katalina Aichholz 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 Work Phone: [facility] Comment on above: Hidradenitis suppura tiva of multiple sites (Primary Dx) Start: 11-03-2024 End: 11-03-2024 Refill Katalina Aichholz 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 Work Phone: [facility] Comment on above: Mixed hyperlipidemia (CMS/[facility]) Start: 11-02-2024 End: 11-02-2024 Clinisync Result Encounter Katalina Aichholz 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 Work Phone: [facility] External Department Unsolicited Start: 11-02-2024 End: 11-02-2024 Clinisync Result Encounter Katalina Aichholz 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 Work Phone: [facility] External Department Unsolicited Start: 10-14-2024 End: 10-14-2024 Refill Katalina Aichholz 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 Work Phone: [facility] Comment on above: Vitamin D deficiency , unspecified Start: 09-15-2024 End: 09-17-2024 Refill Katalina Aichholz 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 Work Phone: [facility] Comment on above: Uncontrolled type 2 diabetes mellitus with hyperglycemia, with long-term current use of insulin (CMS/[facility]) (Primary Dx) Start: 09-07-2024 End: 09-07-2024 Telephone encounter Sarah Khan MD Work Phone: [facility] Comment on above: Med Refill Start: 09-05-2024 End: 09-05-2024 Refill Katalina Aichholz 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 Work Phone: [facility] Comment on above: Essential hypertensi on (CMS/HCC) Start: 08-13-2024 End: 08-13-2024 ambulatory KATALINA FILEMON Not Available Start: 08-13-2024 End: 08-13-2024 Office outpatient visit 25 minutes Katalina Colbert 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 Work Phone: [facility] Comment on above: Anxiety and depressi on [...] Start: 07-16-2024 End: 07-17-2024 Refill Katalina Colbert 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 Work Phone: [facility] Comment on above: Essential hypertensi on (CMS/HCC); Bilateral lower extremity edema Start: 07-13-2024 End: 07-13-2024 Bamboo flowsheet Sarah Khan MD Work Phone: [facility] Start: 07-13-2024 End: 07-13-2024 Bamboo flowsheet Sarah Khan MD Work Phone: [facility] Start: 07-13-2024 End: 07-13-2024 Office outpatient visit 25 minutes Sarah Khan MD Work Phone: [facility] Comment on above: Type 2 diabetes didier itus with hyperglycemia, with long-term current use of insulin (CMS/HCC) (Primary Dx); Insulin long-term use (CMS/HCC); Hyperlipemia, mixed (CMS/HCC); Vitamin D deficiency; Encounter for dietary consultation; Class 3 severe obesity with serious comorbidity and body mass index (BMI) of 50.0 to 59.9 in adult, unspecified obesity type (CMS/[facility]) Start: 07-13-2024 End: 07-13-2024 ambulatory SARAH KHAN Not Available Start: 06-13-2024 End: 06-13-2024 Refill Zion Pringle MD Work Phone: Radiation Oncology Comment on above: Refill Request Start: 06-12-2024 End: 06-12-2024 Clinisync Result Encounter Generic External Data Provider [facility] External Department Unsolicited Start: 06-12-2024 End: 06-12-2024 Clinisync Result Encounter Generic External Data Provider [facility] External Department Unsolicited Start: 05-12-2024 End: 05-13-2024 Refill Katalina Colbert 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 Work Phone: [facility] Comment on above: Chronic pain syndrom e Start: 05-09-2024 End: 05-09-2024 Bamboo flowsheet Katalinaharis Colbert 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 Work Phone: [facility] Start: 05-09-2024 End: 05-09-2024 Bamboo flowsheet Katalina Filemon 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 Work Phone: [facility] Start: 05-09-2024 End: 05-09-2024 ambulatory KATALINA FILEMON Not Available Start: 05-09-2024 End: 05-09-2024 Office outpatient visit 25 minutes Katalina Colbert 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 Work Phone: [facility] Comment on above: Essential hypertensi on ([facility]) (Primary Dx); KARINE (obstructive sleep apnea); Bilateral lower extremity edema; Vitamin D deficiency; Uncontrolled type 2 diabetes mellitus with hyperglycemia, with long-term current use of insulin ([facility]); Class 3 severe obesity due to excess calories with serious comorbidity and body mass index (BMI) of 50.0 to 59.9 in adult ([facility]); Anxiety and depression ([facility]); Allergic rhinitis, unspecified seasonality, unspecified trigger; Encounter for screening mammogram for malignant neoplasm of breast; Left foot pain; Other chronic pain Start: 04-17-2024 End: 04-17-2024 Refill Paulina Perez MA [facility] Comment on above: Mixed hyperlipidemia (CMS/HCC) Start: 04-10-2024 End: 04-10-2024 Refill Katalina Colbert 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 Work Phone: [facility] Comment on above: Hidradenitis suppura tiva of multiple sites (Primary Dx) Start: 04-09-2024 End: 04-09-2024 Refill Katalina Colbert 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 Work Phone: [facility] Comment on above: Yeast infection of t he vagina (Primary Dx) Start: 03-22-2024 End: 03-23-2024 ambulatory Zion Pringle MD Work Phone: Radiation Oncology Comment on above: History of thyroid c ancer (Primary Dx) Start: 03-22-2024 End: 03-22-2024 Telemedicine consultation with patient Zion Pringle MD [...] External Department Unsolicited Start: 03-13-2024 ambulatory Zion PRINGLE Facil ity:[facility] Start: 03-08-2024 End: 03-08-2024 Bamboo flowsheet Sarah Khan MD Work Phone: [facility] Start: 03-08-2024 End: 03-08-2024 Bamboo flowsheet Sarah Khan MD Work Phone: [facility] Start: 03-08-2024 End: 03-08-2024 ambulatory SARAH KHAN Not Available Start: 03-08-2024 End: 03-08-2024 Office outpatient visit 25 minutes Sarah Khan MD Work Phone: [facility] Comment on above: Type 2 diabetes didier itus with hyperglycemia, unspecified whether fci insulin use (CMS/HCC) (Primary Dx); Insulin long-term use (CMS/HCC); Hyperlipemia, mixed (CMS/HCC); Vitamin D deficiency; Encounter for dietary consultation; Class 3 severe obesity with serious comorbidity and body mass index (BMI) of 50.0 to 59.9 in adult, unspecified obesity type (CMS/HCC) Start: 03-01-2024 End: 03-01-2024 Refill Katalina Aichholz 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 Work Phone: [facility] Comment on above: Essential hypertensi on (CMS/HCC) Start: 02-27-2024 End: 03-01-2024 Telephone encounter Sarah Khan MD Work Phone: [facility] Start: 02-23-2024 End: 02-23-2024 Refill Katalina Aichholz 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 Work Phone: [facility] Comment on above: Vitamin D deficiency (Primary Dx) Start: 02-08-2024 End: 02-08-2024 Office outpatient visit 25 minutes Katalina Colbert 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 Work Phone: [facility] Comment on above: Essential hypertensi on (CMS/HCC) (Primary Dx); KARINE (obstructive sleep apnea); Arthritis of knee, right; Bilateral lower extremity edema; Class 3 severe obesity due to excess calories with serious comorbidity and body mass index (BMI) of 50.0 to 59.9 in adult (CMS/HCC); Malignant neoplasm of thyroid gland (CMS/HCC); Papillary thyroid carcinoma (CMS/HCC); Anxiety and depression (CMS/HCC); Hidradenitis suppurativa of multiple sites Start: 02-08-2024 End: 02-23-2024 Refill Freddy Victoria MD Work Phone: Radiation Oncology Comment on above: Refill Request; Appo intment Start: 01-31-2024 End: 01-31-2024 Refill Katalina Aichholz 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 Work Phone: [facility] Comment on above: Anxiety and depressi on (CMS/HCC) Start: 09-30-2023 End: 09-30-2023 Telephone encounter Karena Benjamin CMA [facility] Start: 09-28-2023 End: 09-28-2023 Evaluation and management of inpatient LIV AZAR [facility] Start: 09-27-2023 End: 09-28-2023 Evaluation and management of inpatient LATOSHA CORBETT 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 Work Phone: [facility] Comment on above: Encounter for colono scopy in patient with family history of colon cancer (Primary Dx) Start: 09-05-2023 Refill Zion armstrong MD Work Phone: Radiation Oncology Comment on above: Refill Request Start: 08-04-2023 Telephone encounter Zion Pringle MD Work Phone: Radiation Oncology Comment on above: Future Appointment Start: 07-07-2023 Refill Katalina Colbert 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 Work Phone: [facility] Comment on above: Acute non-recurrent sinusitis of [...] Confirma tion Start: 01-03-2023 Refill Michell Soto [facility] Work Phone: [facility] Comment on above: Refill [...] Start: 09-06-2022 Patient encounter procedure [facility] Provider [facility] Department Start: 06-20-2022 End: 06-21-2022 ambulatory MARTINA BLOUNT . Facility:[facility] Start: 06-10-2022 End: 06-10-2022 ambulatory Zion Pringle MD Work Phone: Radiation Oncology Comment on above: Thyroid cancer (HCC) (Primary Dx) Start: 06-10-2022 End: 01-05-2023 Telemedicine consultation with patient G Anthony Pringle MD Work Phone: [facility] Start: 06-02-2022 End: 06-03-2022 ambulatory Zion Pringle MD Work Phone: Radiation Oncology Comment on above: Thyroid cancer (HCC) (Primary Dx) Start: 06-02-2022 End: 06-03-2022 Telemedicine consultation with patient Zion Anthony Pringle MD Work Phone: [facility] Start: 05-27-2022 End: 05-28-[address] WILLY PRINGLE Facility:[facility] Start: 04-27-2022 End: 04-28-2022 ambulatory ENTRY CLERK KATALINA COLBERT Facility:[facility] Start: 04-16-2022 Refill Zion armstrong MD Work Phone: Radiation Oncology Comment on above: Refill Request Start: 02-18-2022 End: 02-19-2022 ambulatory ENTRY CLERK KATALINA FILEMON Facility:[facility] Start: 02-04-2022 End: 02-05-2022 ambulatory Zion Pringle MD Work Phone: Radiation Oncology Comment on above: Thyroid cancer (HCC) (Primary Dx) Start: 02-04-2022 End: 02-05-2022 Telemedicine consultation with patient Zion Prnigle MD Work Phone: [facility] Start: 02-03-2022 End: 02-03-2022 ambulatory ENTRY CLERK KATALINA COLBERT Facility:[facility] Start: 01-29-2022 End: 01-30-[address] WILLY PRINGLE Facility:[facility] Start: 11-05-2021 End: 11-05-2021 ambulatory Zion Pringle MD Work Phone: Radiation Oncology Comment on above: Thyroid cancer (HCC) (Primary Dx) Start: 11-05-2021 End: 11-05-2021 Telemedicine consultation with patient Zion Anthony Pringle MD Work Phone: [facility] Start: 10-13-2021 End: 10-13-2021 ambulatory Zion Pringle MD Work Phone: Radiation Oncology Comment on above: Thyroid cancer (HCC) (Primary Dx) Start: 10-13-2021 End: 10-13-2021 Telemedicine consultation with patient Zion Anthony Pringle MD Work Phone: [facility] Start: 05-27-2020 End: 05-27-2020 Patient encounter procedure External Provider [facility] Start: 05-27-2020 Results Only External Provider Exter nal-NonCCF Procedures Date Procedure Procedure Detail Performing Clinician Start: 01-30-2025 Radiologic exam knee complete 4/more views Katalina Colbert 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 Work Phone: Start: 01-11-2025 NM LACEY PERF SPECT REST STR Katalina Colbert 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 Work Phone: Start: 11-02-2024 ALL CBC WITH AUTO DIFF Katalina Colbert 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 Work Phone: Start: 07-13-2024 Gluc bld gluc [...] Work Phone: Start: 09-27-2023 Colonoscopy Katalina bardales 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 Work Phone: Start: 06-09-2023 Microscopic observat ion [Identifier] in Cervix by Cyto stain Katalina Colbert 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 Work Phone: Start: 05-04-2023 Mammography Katalina bardales 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 Work Phone: Start: 02-01-2022 Adult depression scr eening assessment SOFY Pringle MD Work Phone: Start: 09-28-2021 Adult depression scr eening assessment SOFY Pringle MD Work Phone: Start: 05-27-2020 End: 05-27-2020 EXTERNAL IMAGING External Provider Start: 05-27-2020 EXTERNAL CARDIOLOGY Ext ernal Provider Start: 05-27-2020 End: 05-27-2020 EXTERNAL LAB External Provider Start: 05-27-2020 EXTERNAL PROCEDURE Exte rnal Provider Start: 08-31-2018 Colonoscopy Ramonitaherlinda story [employer] 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[employer] 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 Work Phone: Plan of Treatment Date Care Activity Detail Author Start: 09-26-2028 Screening for malignant neoplasm of colon [facility] Start: 07-13-2027 Diabetes Screening Diabetes Screening [facility] Start: 03-08-2027 Diabetes Screening Diabetes Screening [facility] Start: 06-09-2026 Screening for malignant neoplasm of cervix [facility] Start: 05-10-2026 Glaucoma screening Diabetes: Retinopathy Screening [facility] Start: 11-29-2025 End: 02-28-2026 Thyroglobulin and Thyrogobulin Ab panel - Serum or Plasma THYROGLOBULIN, SERUM WITH REFLEX TO IA OR LC-MS/MS Lab Routine History of thyroid cancer Expected: 11/29/2025, Expires: 02/28/2026 [facility] Comment on above: Expected: 11/29/2025, Expires: Start: 11-29-2025 End: 11-29-2025 Thyrotropin [Units/volume] in Serum or Plasma THYROID STIMULATING HORMONE Lab Routine History of thyroid cancer Expected: 11/29/2025, Expires: 11/29/2025 [facility] Work Phone: Comment on above: Expected: 11/29/2025, Expires: Start: 11-29-2025 End: 11-29-2025 Thyroxine (T4) [Mass/volume] in Serum or Plasma T4/THYROXINE Lab Routine History of thyroid cancer Expected: 11/29/2025, Expires: 11/29/2025 [facility] Comment on above: Expected: 11/29/2025, Expires: Start: 11-29-2025 End: 11-29-2025 Triiodothyronine (T3) [Mass/volume] in Serum or Plasma T3 Lab Routine History of thyroid cancer Expected: 11/29/2025, Expires: 11/29/2025 [facility] Comment on above: Expected: 11/29/2025, Expires: Start: 11-27-2025 End: 11-27-2025 Follow-up encounter 11/27/2025 4:00 PM EDT [facility] Radiation Oncology [address] [place] [address] Zion Pringle MD [address] [place] [address] Follow up after recheck labs Radiation Oncology Comment on above: Follow up after recheck labs Start: 11-22-2025 End: 02-21-2026 Thyroglobulin and Thyrogobulin Ab panel - Serum or Plasma THYROGLOBULIN, SERUM WITH REFLEX TO IA OR LC-MS/MS Lab Routine History of thyroid cancer Expected: 11/22/2025 (Approximate), Expires: 02/21/2026 [facility] Comment on above: Expected: 11/22/2025 (Approximate), Expi res: 02/21/2026 Start: 11-22-2025 End: 02-21-2026 Thyrotropin [Units/volume] in Serum or Plasma THYROID STIMULATING HORMONE Lab Routine History of thyroid cancer Expected: 11/22/2025 (Approximate), Expires: 02/21/2026 [facility] Comment on above: Expected: 11/22/2025 (Approximate), Expi res: 02/21/2026 Start: 11-22-2025 End: 02-21-2026 Thyroxine (T4) [Mass/volume] in Serum or Plasma T4/THYROXINE Lab Routine History of thyroid cancer Expected: 11/22/2025 (Approximate), Expires: 02/21/2026 [facility] Work Phone: Comment on above: Expected: 11/22/2025 (Approximate), Expi res: 02/21/2026 Start: 11-21-2025 End: 11-21-2025 Patient encounter procedure 11/21/2025 11:30 AM EDT Office Visit [facility] [address] [place] [address] labs [facility] Comment on above: labs Start: 06-12-2025 Screening for malignant neoplasm of breast Mammogram [facility] Start: 05-15-2025 End: 05-15-2025 Patient encounter procedure 05/15/2025 1:00 PM EST Office Visit [facility] [address] [place] [phone] Rita Pulliam CNM [address] [place], [place] [id number] [facility] Start: 02-28-2025 Glaucoma screening Diabetes: Retinopathy Screening [facility] Start: 02-05-2025 End: 02-05-2025 Patient encounter procedure 02/05/2025 11:30 AM EDT Office Visit [facility] [address] [place] [address] Katalina Colbert NP [address] [place] [phone] [facility] Start: 02-04-2025 Influenza vaccination Influenza Vaccine (#1) [facility] Start: 01-22-2025 End: 01-22-2025 Patient encounter procedure [facility] Comment on above: Arrived Start: 01-10-2025 End: 01-10-2025 Patient encounter procedure 01/10/2025 1:20 PM EDT Office Visit [facility] [address] [place] [phone] Katalina Colbert, NETTIE [address] [place] [phone] [facility] Start: 12-12-2024 End: 12-12-2024 Patient encounter procedure 12/12/2024 1:20 PM EDT Office Visit [facility] [address] [place] [phone] Katalina Colbert, NETTIE [address] [place] [phone] [facility] Start: 12-11-2024 End: 12-11-2024 Patient encounter procedure 12/11/2024 2:00 PM EDT Office Visit [facility] [address] [place] [phone] Rita Pulliam, [facility] [address] [place] [address] [facility] Start: 12-06-2024 Urine screening for protein Diabetes: Urine Protein Screening [facility] Start: 11-22-2024 End: 11-22-2024 Patient encounter procedure 11/22/2024 3:00 PM EDT Office Visit [facility] [address] [place] [phone] Rita Pulliam [facility] [address] [place] [address] [facility] Start: 11-21-2024 End: 11-21-2024 Follow-up encounter 11/21/2024 4:00 PM EDT [facility] Radiation Oncology [address] [place] [address] [place] [address] Zion Pringle MD [address] [place] [address] [place] [address] Follow up after recheck labs Radiation Oncology Comment on above: Follow up after recheck labs Start: 11-13-2024 End: 11-13-2024 Patient encounter procedure 11/13/2024 3:00 PM EDT Office Visit [facility] [address] [place] [phone] Katalina Colbert, NETTIE [address] [place] [address] [facility] Start: 11-13-2024 End: 11-13-2025 Cardiac stress study Procedure STRESS TEST LEXISCAN Imaging Routine Essential hypertension (CMS/HCC) KARINE (obstructive sleep apnea) Uncontrolled type 2 diabetes mellitus with hyperglycemia, with long-term current use of insulin (CMS/HCC) Chest pain of unknown etiology Expected: 11/13/2024 (Approximate), Expires: 11/13/2025 [facility] Work Phone: Comment on above: Expected: 11/13/2024 (Approximate), Expi res: 11/13/2025 Start: 11-13-2024 End: 11-13-2026 Echocardiogram 2D complete Echocardiogram 2D complete Echocardiography Routine Essential hypertension (CMS/HCC) KARINE (obstructive sleep apnea) Uncontrolled type 2 diabetes mellitus with hyperglycemia, with long-term current use of insulin (CMS/HCC) Chest pain of unknown etiology Expected: 11/13/2024 (Approximate), Expires: 11/13/2026 [facility] Comment on above: Expected: 11/13/2024 (Approximate), Expi res: 11/13/2026 Start: 11-08-2024 End: 11-08-2024 Patient encounter procedure 11/08/2024 11:20 AM EDT Office Visit [facility] [address] [place] [address] Sarah Khan MD [address] [place] [address] [facility] Start: 11-01-2024 End: 11-01-2024 Follow-up encounter 11/01/2024 2:30 PM EDT [facility] Radiation Oncology [address] [place] [address] [place] [address] [place] [address] [place] [id number] Follow up after recheck labs Radiation Oncology Comment on above: Follow up after recheck labs Start: 10-21-2024 End: 01-20-2025 Thyroglobulin and Thyrogobulin Ab panel - Serum or Plasma THYROGLOBULIN, SERUM WITH REFLEX TO IA OR LC-MS/MS Lab Routine History of thyroid cancer Expected: 10/21/2024 (Approximate), Expires: 01/20/2025 [facility] Comment on above: Expected: 10/21/2024 (Approximate), Expi res: 01/20/2025 Start: 10-21-2024 End: 01-20-2025 Thyrotropin [Units/volume] in Serum or Plasma THYROID STIMULATING HORMONE Lab Routine History of thyroid cancer Expected: 10/21/2024 (Approximate), Expires: 01/20/2025 [facility] Comment on above: Expected: 10/21/2024 (Approximate), Expi res: 01/20/2025 Start: 10-21-2024 End: 01-20-2025 Thyroxine (T4) [Mass/volume] in Serum or Plasma T4/THYROXINE Lab Routine History of thyroid cancer Expected: 10/21/2024 (Approximate), Expires: 01/20/2025 [facility] Work Phone: Comment on above: Expected: 10/21/2024 (Approximate), Expi res: 01/20/2025 Start: 10-10-2024 Hemoglobin A1c measurement Diabetes: Hemoglobin A1C [facility] Start: 09-26-2024 Adult BMI Screening Adult BMI Screening [facility] Start: 09-26-2024 Tobacco Screening Tobacco Screening [facility] Start: 09-12-2024 Adult BMI Screening Adult BMI Screening [facility] Start: 09-12-2024 Tobacco Screening Tobacco Screening [facility] Start: 08-13-2024 End: 08-13-2025 CBC W Auto Differential panel - Blood CBC and differential Lab Routine Uncontrolled type 2 diabetes mellitus with hyperglycemia, with long-term current use of insulin ([facility]) Expected: 08/13/2024 (Approximate), Expires: 08/13/2025 [facility] Work Phone: Comment on above: Expected: 08/13/2024 (Approximate), Expi res: 08/13/2025 Start: 08-13-2024 End: 08-13-2025 Comprehensive metabolic 2000 panel - Serum or Plasma Comprehensive metabolic panel Lab Routine Essential hypertension ([facility]/HCC) Uncontrolled type 2 diabetes mellitus with hyperglycemia, with long-term current use of insulin (CMS/HCC) Expected: 08/13/2024 (Approximate), Expires: 08/13/2025 [facility] Comment on above: Expected: 08/13/2024 (Approximate), Expi res: 08/13/2025 Start: 08-13-2024 End: 08-13-2025 Microalbumin/Creatinine panel in random Urine Microalbumin / creatinine, urine ratio Lab Routine Essential hypertension ([facility]/HCC) Uncontrolled type 2 diabetes mellitus with hyperglycemia, with long-term current use of insulin (CMS/HCC) Expected: 08/13/2024 (Approximate), Expires: 08/13/2025 [facility] Comment on above: Expected: 08/13/2024 (Approximate), Expi res: 08/13/2025 Start: 08-13-2024 End: 08-13-2024 Patient encounter procedure 08/13/2024 2:00 PM EDT Office Visit [facility] [address] [place] [address] Katalina Colbert, 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 [address] [place] [address] [facility] Start: 08-13-2024 End: 08-13-2025 Urinalysis complete panel - Urine Urinalysis with reflex microscopic (clean catch) Lab Routine Essential hypertension ([facility]/HCC) Uncontrolled type 2 diabetes mellitus with hyperglycemia, with long-term current use of insulin ([facility]/HCC) Expected: 08/13/2024 (Approximate), Expires: 08/13/2025 [facility] Comment on above: Expected: 08/13/2024 (Approximate), Expi res: 08/13/2025 Start: 07-25-2024 End: 07-25-2024 Follow-up encounter Radiation Oncology Comment on above: Follow up after recheck labs Start: 07-23-2024 End: 10-22-2024 Thyroglobulin and Thyrogobulin Ab panel - Serum or Plasma THYROGLOBULIN, SERUM WITH REFLEX TO IA OR LC-MS/MS Lab Routine History of thyroid cancer Expected: 07/23/2024 (Approximate), Expires: 10/22/2024 [facility] Comment on above: Expected: 07/23/2024 (Approximate), Expi res: 10/22/2024 Start: 07-23-2024 End: 10-22-2024 Thyrotropin [Units/volume] in Serum or Plasma THYROID STIMULATING HORMONE Lab Routine History of thyroid cancer Expected: 07/23/2024 (Approximate), Expires: 10/22/2024 [facility] Comment on above: Expected: 07/23/2024 (Approximate), Expi res: 10/22/2024 Start: 07-23-2024 End: 10-22-2024 Thyroxine (T4) [Mass/volume] in Serum or Plasma T4/THYROXINE Lab Routine History of thyroid cancer Expected: 07/23/2024 (Approximate), Expires: 10/22/2024 [facility] Work Phone: Comment on above: Expected: 07/23/2024 (Approximate), Expi res: 10/22/2024 Start: 07-13-2024 End: 07-13-2024 Patient encounter procedure 07/13/2024 10:50 AM EST Office Visit [facility] [address] [place] [address] Sarah Khan MD [address] [place] [address] Arrived [facility] Comment on above: Arrived Start: 07-12-2024 End: 07-12-2024 Patient encounter procedure 07/12/2024 11:20 AM EST Office Visit [facility] [address] [place] [address] Sarah Khan MD [address] [place] [address] [facility] Start: 06-08-2024 Hemoglobin A1c measurement Diabetes: Hemoglobin A1C [facility] Start: 05-09-2024 End: 07-10-2025 MG Breast - bilateral Screening Bilateral screening mammogram Imaging Routine Encounter for screening mammogram for malignant neoplasm of breast Expected: 05/09/2024 (Approximate), Expires: 07/10/2025 [facility] Work Phone: Comment on above: Expected: 05/09/2024 (Approximate), Expi res: 07/10/2025 Start: 05-09-2024 End: 05-09-2024 Patient encounter procedure 05/09/2024 1:00 PM EST Office Visit [facility] [address] [place] [phone] Katalina Colbert, 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 [address] [place] [phone] [facility] Start: 05-04-2024 Screening for malignant neoplasm of breast Mammogram [facility] Start: 04-20-2024 Shingrix Vaccine (2 of 2) Shingrix Vaccine (2 of 2) [facility] Start: 04-05-2024 Influenza vaccination Influenza Vaccine (#1) [facility] Comment on above: Postponed from 02/05/2024 (Patient Does Not Have Time) Start: 03-13-2024 End: 03-13-2024 Follow-up encounter 03/13/2024 3:15 PM EDT [facility] Radiation Oncology [address] [facility] [place] [address] Zion Pringle MD [address] [place] [address] [place] [address] 4 Month Follow UP Radiation Oncology Comment on above: 4 Month Follow UP Start: 03-07-2024 End: 03-07-2024 Patient encounter procedure 03/07/2024 11:20 AM EDT Office Visit [facility] [address] [place] [address] Sarah Khan MD [address] [place] [address] [facility] Start: 02-11-2024 DIABETES SCREEN DIABETES SCREEN [facility] Start: 02-11-2024 Diabetes Screening Diabetes Screening [facility] Start: 02-08-2024 End: 02-08-2024 Patient encounter procedure 02/08/2024 2:00 PM EDT Office Visit [facility] [address] [place] [address] Katalina Colbert, NETTIE [address] [place] [address] [facility] Start: 02-07-2024 Hemoglobin A1c measurement Diabetes: Hemoglobin A1C [facility] Start: 02-05-2024 Covid-19 Vaccine ( season) Covid-19 Vaccine ( season) [facility] Start: 02-05-2024 Covid-19 Vaccine ( season) Covid-19 Vaccine ( season) [facility] Start: 02-05-2024 Influenza vaccination [facility] Start: 10-06-2023 End: 10-06-2023 Admission to same day surgery center 10/06/2023 8:00 AM EDT - 10/06/2023 8:30 AM EDT Surgery [address] [address] Latosha Corbett, [address] [place] [address] COLONOSCOPY DIAGNOSTIC / SCREENING [43274 (CPT )] [facility] Comment on above: COLONOSCOPY DIAGNOSTIC / SCREENING [4537 8 (CPT )] Start: 10-06-2023 End: 10-06-2023 Colonoscopy flx dx w/collj spec when pfrmd COLONOSCOPY DIAGNOSTIC / SCREENING Family history of colon cancer 10/06/2023 8:00 AM EDT [facility] Start: 10-06-2023 Subsequent hospital visit by physician 10/06/2023 8:00 AM EDT Hospital Encounter [facility] - [facility] [address] [facility] [address] Latosha Corbett, DO [address] [place] [address] [facility] - Surgery Start: 09-29-2023 End: 09-29-2023 ambulatory 09/29/2023 3:10 PM EDT Support Visit [facility] - Pre Admit [address] [place] [address] [facility] - Pre Admit Start: 09-08-2023 End: 09-08-2023 Patient encounter procedure 09/08/2023 6:00 PM EDT Office Visit [facility] [address] [place] [address] Katalina Colbert, NETTIE [address] [place] [address] [facility] Start: 09-01-2023 Screening for malignant neoplasm of colon Colonoscopy [facility] Start: 08-22-2023 Screening for malignant neoplasm of colon [facility] Start: 08-09-2023 Influenza vaccination Influenza Vaccine (#1) [facility] Comment on above: Postponed from 02/04/2023 (Other Patient Reasons) Start: 07-25-2023 End: 10-24-2023 THYROGLOBULIN BY MASS SPECTROMETRY THYROGLOBULIN BY MASS SPECTROMETRY Lab Routine History of thyroid cancer Expected: 07/25/2023, Expires: 10/24/2023 [facility] Work Phone: Comment on above: Expected: 07/25/2023, Expires: Start: 07-25-2023 End: 03-24-2024 Thyrotropin [Units/volume] in Serum or Plasma TSH BLD Lab Routine History of thyroid cancer Expected: 07/25/2023, Expires: 03/24/2024 [facility] Work Phone: Comment on above: Expected: 07/25/2023, Expires: 4 Start: 07-25-2023 End: 03-24-2024 Thyroxine (T4) [Mass/volume] in Serum or Plasma T4/THYROXINE BLOOD Lab Routine History of thyroid cancer Expected: 07/25/2023, Expires: 03/24/2024 [facility] Work Phone: Comment on above: Expected: 07/25/2023, Expires: 4 Start: 07-25-2023 End: 03-24-2024 Triiodothyronine (T3) [Mass/volume] in Serum or Plasma T3 BLD Lab Routine History of thyroid cancer Expected: 07/25/2023, Expires: 03/24/2024 [facility] Work Phone: Comment on above: Expected: 07/25/2023, Expires: 4 Start: 06-06-2023 Depression Assessment Depression Assessment [facility] Start: 02-23-2023 End: 04-25-2023 Thyrotropin [Units/volume] in Serum or Plasma TSH BLD Lab Routine Thyroid cancer (HCC) Expected: 02/23/2023, Expires: 04/25/2023 [facility] Work Phone: Comment on above: Expected: 02/23/2023, Expires: 3 Start: 02-23-2023 End: 04-25-2023 Thyroxine (T4) [Mass/volume] in Serum or Plasma T4/THYROXINE BLOOD Lab Routine Thyroid cancer (HCC) Expected: 02/23/2023, Expires: 04/25/2023 [facility] Work Phone: Comment on above: Expected: 02/23/2023, Expires: 3 Start: 02-04-2023 Covid-19 Vaccine () Covid-19 Vaccine () [facility] Start: 02-04-2023 Influenza vaccination [facility] Start: 02-01-2023 Adult depression screening assessment DEPRESSION SCREENING [facility] Start: 11-09-2022 End: 09-10-2023 Thyrotropin [Units/volume] in Serum or Plasma TSH BLD Lab Routine Thyroid cancer (HCC) Expected: 11/09/2022, Expires: 09/10/2023 [facility] Work Phone: Comment on above: Expected: 11/09/2022, Expires: Start: 11-09-2022 End: 09-10-2023 Thyroxine (T4) [Mass/volume] in Serum or Plasma T4/THYROXINE BLOOD Lab Routine Thyroid cancer (HCC) Expected: 11/09/2022, Expires: 09/10/2023 [facility] Work Phone: Comment on above: Expected: 11/09/2022, Expires: Start: 11-09-2022 End: 09-10-2023 Triiodothyronine (T3) [Mass/volume] in Serum or Plasma T3 BLD Lab Routine Thyroid cancer (HCC) Expected: 11/09/2022, Expires: 09/10/2023 [facility] Work Phone: Comment on above: Expected: 11/09/2022, Expires: Start: 09-28-2022 Adult depression screening assessment DEPRESSION SCREENING [facility] Start: 09-08-2022 End: 06-10-2023 Thyrotropin [Units/volume] in Serum or Plasma TSH BLD Lab Routine Thyroid cancer (HCC) Expected: 09/08/2022, Expires: 06/10/2023 [facility] Work Phone: Comment on above: Expected: 09/08/2022, Expires: Start: 09-08-2022 End: 06-10-2023 Thyroxine (T4) [Mass/volume] in Serum or Plasma T4/THYROXINE BLOOD Lab Routine Thyroid cancer (HCC) Expected: 09/08/2022, Expires: 06/10/2023 [facility] Work Phone: Comment on above: Expected: 09/08/2022, Expires: Start: 09-08-2022 End: 06-10-2023 Triiodothyronine (T3) [Mass/volume] in Serum or Plasma T3 BLD Lab Routine Thyroid cancer (HCC) Expected: 09/08/2022, Expires: 06/10/2023 [facility] Work Phone: Comment on above: Expected: 09/08/2022, Expires: 4 Start: 06-06-2022 DEPRESSION ASSESSMENT DEPRESSION ASSESSMENT [facility] Start: 05-14-2022 End: 07-14-2022 Thyroglobulin Ab [Units/volume] in Serum or Plasma THYROGLOBULIN AB Lab Routine Thyroid cancer (HCC) Expected: 05/14/2022, Expires: 07/14/2022 [facility] Work Phone: Comment on above: Expected: 05/14/2022, Expires: 3 Start: 05-14-2022 End: 07-14-2022 Thyroglobulin and Thyrogobulin Ab panel - Serum or Plasma THYROGLOBULIN BLD Lab Routine Thyroid cancer (HCC) Expected: 05/14/2022, Expires: 07/14/2022 [facility] Work Phone: Comment on above: Expected: 05/14/2022, Expires: 3 Start: 05-14-2022 End: 02-12-2023 Thyrotropin [Units/volume] in Serum or Plasma TSH BLD Lab Routine Thyroid cancer (HCC) Expected: 05/14/2022, Expires: 02/12/2023 [facility] Work Phone: Comment on above: Expected: 05/14/2022, Expires: 3 Start: 05-14-2022 End: 02-12-2023 Thyroxine (T4) [Mass/volume] in Serum or Plasma T4/THYROXINE BLOOD Lab Routine Thyroid cancer (HCC) Expected: 05/14/2022, Expires: 02/12/2023 [facility] Work Phone: Comment on above: Expected: 05/14/2022, Expires: 3 Start: 05-14-2022 End: 02-12-2023 Triiodothyronine (T3) [Mass/volume] in Serum or Plasma T3 BLD Lab Routine Thyroid cancer (HCC) Expected: 05/14/2022, Expires: 02/12/2023 [facility] Work Phone: Comment on above: Expected: 05/14/2022, Expires: 3 Start: 02-05-2022 End: 04-07-2022 T3 BLD T3 BLD Lab Routine Thyroid cancer (HCC) Expected: 02/05/2022, Expires: 04/07/2022 [facility] Work Phone: Comment on above: Expected: 02/05/2022, Expires: 2 Start: 02-05-2022 End: 04-07-2022 Thyrotropin [Units/volume] in Serum or Plasma TSH BLD Lab Routine Thyroid cancer (HCC) Expected: 02/05/2022, Expires: 04/07/2022 [facility] Work Phone: Comment on above: Expected: 02/05/2022, Expires: 2 Start: 02-05-2022 End: 04-07-2022 Thyroxine (T4) [Mass/volume] in Serum or Plasma T4/THYROXINE BLOOD Lab Routine Thyroid cancer (HCC) Expected: 02/05/2022, Expires: 04/07/2022 [facility] Work Phone: Comment on above: Expected: 02/05/2022, Expires: 2 Start: 02-04-2022 Influenza vaccination [facility] Start: 12-16-2021 End: 02-15-2022 Thyrotropin [Units/volume] in Serum or Plasma TSH BLD Lab Routine Thyroid cancer (HCC) Expected: 12/16/2021, Expires: 02/15/2022 [facility] Work Phone: Comment on above: Expected: 12/16/2021, Expires: 2 Start: 12-16-2021 End: 02-15-2022 Thyroxine (T4) [Mass/volume] in Serum or Plasma T4/THYROXINE BLOOD Lab Routine Thyroid cancer (HCC) Expected: 12/16/2021, Expires: 02/15/2022 [facility] Work Phone: Comment on above: Expected: 12/16/2021, Expires: 2 Start: 06-06-2021 DEPRESSION ASSESSMENT DEPRESSION ASSESSMENT [facility] Start: 02-05-2020 Influenza vaccination INFLUENZA (#1) [facility] Start: 04-26-2018 Hemoglobin A1c measurement Diabetes: Hemoglobin A1C [facility] Start: 2017 Administration of varicella zoster vaccine Zoster (Shingles) Vaccine (1 of 2) [facility] Start: 2017 Pneumococcal Vaccine: 50+ (1 of 1 - PCV) Pneumococcal Vaccine: 50+ (1 of 1 - PCV) [facility] Start: 2017 Screening for malignant neoplasm of colon [facility] Start: 2017 SHINGRIX VACCINE (1 of 2) SHINGRIX VACCINE (1 of 2) [facility] Start: 01-25-2012 COLOGUARD (FIT-DNA) COLOGUARD (FIT-DNA) [facility] Start: 01-25-2012 Colonoscopy COLONOSCOPY [facility] Start: 01-25-2012 COLORECTAL CANCER SCREENING COLORECTAL CANCER SCREENING [facility] Start: 01-25-[address] COLONOGRAPHY [facility] Start: 01-25-2012 DIABETES SCREEN DIABETES SCREEN [facility] Start: 01-25-2012 FECAL OCCULT BLOOD FECAL OCCULT BLOOD [facility] Start: 01-25-2012 Lipid 1996 panel - Serum or Plasma Lipid Screening [facility] Start: 01-25-2012 Lipid panel Lipid Screening [facility] Start: 01-25-2012 LIPID SCREEN LIPID SCREEN [facility] Start: 01-25-2012 Screening for malignant neoplasm of colon [facility] Start: 01-25-2012 SIGMOIDOSCOPY SIGMOIDOSCOPY [facility] Start: 2007 Mammography [facility] Start: 2007 Screening for malignant neoplasm of breast Mammogram Screening [facility] Start: 1997 HPV TESTING HPV TESTING [facility] Start: 1997 Screening for malignant neoplasm of cervix [facility] Start: 01-25-1988 PAP TESTING PAP TESTING [facility] Start: 01-25-1988 Screening for malignant neoplasm of cervix [facility] Start: 1986 DTaP,Tdap and Td Vaccines (1 - Tdap) DTaP,Tdap and Td Vaccines (1 - Tdap) [facility] Start: 1986 Hepatitis B Vaccine (1 of 3 - 19+ 3-dose series) Hepatitis B Vaccine (1 of 3 - 19+ 3-dose series) [facility] Start: 1986 Urine microalbumin profile [facility] Start: 1986 Urine screening for protein Diabetes: Urine Protein Screening [facility] Start: 1985 Adult BMI Follow Up Plan Adult BMI Follow Up Plan [facility] Start: 1985 Anxiety Screening Anxiety Screening [facility] Start: 1985 Depression Screening Depression Screening [facility] Start: 1985 HEPATITIS C SCREENING HEPATITIS C SCREENING [facility] Start: 1985 Hepatitis C screening Hepatitis C Screening [facility] Start: 1985 HIV SCREENING HIV SCREENING [facility] Start: 1985 HIV screening HIV Screening [facility] Start: 1979 Depression Screening Depression Screening [facility] Start: 1977 Glaucoma screening Diabetes: Retinopathy Screening [facility] Start: 1973 PNEUMOCOCCAL (1 - PCV) PNEUMOCOCCAL (1 - PCV) [facility] Start: 01-25-1972 COVID-19 VACCINE (#1) COVID-19 VACCINE (#1) [facility] Start: 1967 COVID-19 VACCINE (#1) COVID-19 VACCINE (#1) [facility] Start: 1967 HEPATITIS B (1 of 3 - 3-dose series) HEPATITIS B (1 of 3 - 3-dose series) [facility] Start: 1967 Hepatitis B Vaccine (1 of 3 - 3-dose series) Hepatitis B Vaccine (1 of 3 - 3-dose series) [facility] Start: 1967 Screening for malignant neoplasm of colon [facility] End: 09-11-2024 Colonoscopy Colonoscopy GI Routine Encounter for colonoscopy in patient with family history of colon cancer 1 Occurrences starting 09/13/2023 until 09/11/2024 [employer] Work Phone: Comment on above: 1 Occurrences starting 09/13/2023 until 09/11/2024 [facility] Immunizations Immunization Date Immunization Notes Care Provider Fa lucybruno 02-24-2024 Pneumococcal Conjuga te PCV 20 Katalina Aichholz 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 Work Phone: [facility] 02-24-2024 Seasonal, trivalent, recombinant, injectable influenza vaccine, preservative free Katalina Aichholz 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 Work Phone: [facility] 02-24-2024 zoster vaccine recombinant Katalina Aichholz 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 Work Phone: [facility] 02-24-2024 influenza virus vacc ine, unspecified formulation Sarah Khan MD Work Phone: [facility] 03-25-2020 influenza, high dose seasonal, preservative-free Katalina 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 Work Phone: [facility] 03-25-2020 influenza, injectabl e, quadrivalent, preservative free Katalina Aichholz 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 Work Phone: [facility] 03-25-2020 pneumococcal polysaccharide vaccine, 23 valent Katalina Aichholz 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 Work Phone: [facility] 03-25-2020 influenza virus vacc ine, unspecified formulation SOFY Pringle MD Work Phone: [facility] 04-05-2019 influenza, high dose seasonal, preservative-free Katalina Aichholz 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 Work Phone: [facility] 03-19-2019 influenza, seasonal, injectable Katalina Aichholz 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 Work Phone: [facility] 03-22-2018 influenza, high dose seasonal, preservative-free Katalina Aichholz 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 Work Phone: [facility] 03-22-2018 influenza, injectabl e, quadrivalent, preservative free Katalina Aichholz 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 Work Phone: [facility] 03-04-2015 influenza, seasonal, injectable Katalina Aichholz 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 Work Phone: [facility] 03-23-2013 influenza, seasonal, injectable Katalina Aichholz 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 Work Phone: [facility] 04-15-2009 novel influenza-H1N1 -09, preservative-free, injectable Katalina Aichholz 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 Work Phone: [facility] 08-11-2001 hepatitis B vaccine, adult dosage Katalina Aichholz 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 Work Phone: [facility] 02-17-2001 hepatitis B vaccine, adult dosage Katalina Aichholz 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 Work Phone: [facility] 03-09-2000 hepatitis B vaccine, adult dosage Katalina Aichholz 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 Work Phone: [facility] Payers Date Payer Category Payer Unknown [employer] [id number] 2023-Present [phone] [address] [place] [address] [id number] 2023 Unknown [id number] 2022 Unknown [id number] 2020 Private Health Insurance [facility] CHOICE PLUS [id number] 2020-Present [phone] [address] [place] [address] O [id number] 2020 Private Health Insurance [id number] 2020 Private Health Insurance [id number] 2019 Unknown JAIDEN ARGUETA PPO [id number] 2019-Present PPO [id number] 1967 Unknown [id number] 2.16.840.1.469340.3.579.2 .593 1967 Unknown [id number] 2.16.840.1.596075.3.579.2 .593 1967 Unknown [id number] 2.16.840.1.707578.3.579.2 .593 1967 Unknown [id number] 2.16.840.1.928771.3.579.2 .593 1967 Unknown [id number] 2.16.840.1.434786.3.579.2 .593 1967 Unknown [id number] 2.840.1.340734.3.579.2 .593 1967 Unknown [id number] 2.840.1.857819.3.579.2 .593 1967 Unknown [id number] 2.840.1.413423.3.579.2 .593 1967 Unknown [id number] 2.840.1.096427.3.579.2 .593 1967 Unknown [id number] 2.840.1.625942.3.579.2 .593 1967 Unknown [id number] 2.840.1.189069.3.579.2 .1286 1967 Unknown [id number] 2.840.1.838196.3.579.2 .1286 1967 Unknown [id number] 2.840.1.683110.3.579.2 .1286 1967 Unknown [id number] 2.840.1.078470.3.579.2 .1286 1967 Unknown [id number] 2.16.840.1.726472.3.579.2 .1286 1967 Unknown [id number] 2.840.1.912785.3.579.2 .1259 1967 Unknown [id number] 2.16840.1.820950.3.579.2 .9 1967 Unknown [id number] 2.16.840.1.494758.3.579.2 .1258 1967 Unknown [id number] 2.16.840.1.233323.3.579.2 .9 1967 Unknown [id number] 2.16.840.1.516387.3.579.2 .1258 1967 Unknown [id number] 2.16.840.1.991835.3.579.2 .1258 1967 Unknown [id number] 2.16.840.1.334676.3.579.2 .1258 1967 Unknown [id number] 2.16.840.1.077721.3.579.2 .1259 1959 Private Health Insurance [id number] Social History Date Type Detail Facility Start: 05-11-2012 End: 12-11-2024 Tobacco smoking status NHIS Former smoker [facility] Work Phone: Start: 06-06-1985 History of tobacco use Cigarette Smoker [facility] Start: 05-11-2012 Alcohol intake Not Asked [facility] Start: 05-11-2012 Tobacco Comment quit smoking Jun 28, 2009 [facility] Start: 1965 Sex Assigned At Not on file [facility] Exposure to SARS-CoV -2 (event) Unable to assess [facility] Start: 05-11-2012 End: 08-13-2024 Cigarettes smoked current (pack per day) - Reported 1 [facility] Start: 05-11-2012 End: 12-11-2024 Tobacco use and exposure Smokeless tobacco non-user [facility] Work Phone: Start: 09-16-2020 End: 01-22-2025 Alcohol intake Ex-drinker (finding) [facility] Start: 06-06-1985 History of tobacco use Current smoker [facility] Start: 01-25-2022 End: 02-04-2022 Exposure to SARS-CoV-2 (event) Not sure [facility] Start: 09-06-2022 End: 08-13-2024 Patient Health Questionnaire 2 item (PHQ-2) [Reported] [facility] Adult Depression Screening Assessment 0 [facility] Start: 07-20-2020 Gender identity Identifies as female gender (finding) [facility] Start: 07-20-2020 Sexual orientation Heterosexual (finding) [facility] Within the last year , [...] - these days [OSQ] To some extent [facility] Healthcare (I/We) worried wheth er (my/our) food would run out before (I/we) got money to buy more. Never true [facility] Start: 06-09-2023 Tobacco Comment Last smoked: 5-10 years ago [facility] Start: 06-09-2023 Alcohol Comment caffeine more than 4 cups per day [facility] Start: 1965 Sex Assigned At Female [facility] Start: 09-13-2023 End: 09-28-2023 Alcoholic beverage intake Current drinker of alcohol (finding) [facility] Start: 01-10-2018 Alcohol Comment rare [facility] Medical Equipment Procedure Code Equipment Code Equipment Origin al Text Equipment Identifier Dates 0---Anchr Sut 4.5mm Pshlk Spnl - [id number] Start: 11-29-2012 Comment on above: Description: SUTURE ANCHOR [id number] Start: 04-20-2023 End: 05-28-2024 Inject 1 each under the skin in the morning and 1 each at noon and 1 each in the evening and 1 each before bedtime. [id number] Start: 02-28-2024 End: 05-28-2024 Goals Date Patient Goal Desired Activity /State Personal health goal Clinical Notes 10-16-2021 to 01-22-2025 Rita Pulliam CNM - 01/22/2025 3:30 PM EDTTelephone Encounter - Katalina Colbert, NETTIE - 12/12/2024 8:40 AM EDTTelephone Encounter - Katalina Colbert, NETTIE - 12/12/2024 8:40 AM EDTPatient Instructions Note Date & Type Note Facility 01-22-2025 History of Present illness Narrative PROBLEM VISIT Katalina Hutchins is 59 y.o. 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 Last pap: 12/11/24 [...] suppurativa HLD (hyperlipidemia) HTN (hypertension) Hypercalcemia Insomnia group home (current) use of insulin (HCC) Morbid obesity with body mass index (BMI) of 40.0 to 49.9 ([facility]-HCC) Multinodular goiter Non compliance w medication regimen Onychomycosis KARINE (obstructive sleep apnea) Papillary thyroid carcinoma (HCC) Paresthesia of left lower extremity Parotid mass Post-operative hypothyroidism Postmenopausal bleeding Sinusitis Type 2 diabetes mellitus with hyperglycemia (HCC) Uncontrolled type 2 diabetes mellitus with hyperglycemia, with long-term current use of insulin ([facility]) 06/09/2023 UTI symptoms Vitamin D deficiency Past Surgical History: Procedure Laterality Date CHOLECYSTECTOMY FINE NEEDLE ASPIRATE 03/10/2016 FNA left parotid IR FINE NEEDLE ASPIRATION THYROID 02/08/2020 OTHER SURGICAL HISTORY Cyst removed Armpit OTHER SURGICAL HISTORY multiple r/o boils ROTATOR CUFF REPAIR Right TOTAL KNEE ARTHROPLASTY Left 04/2015 DR. 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 Patient met a man online from [place] and she is maybe going to move to [place] with him. 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 PVU. No follow-ups on file. There are no Patient Instructions on file for this visit. Darlin Covington MA,01/22/2025 3:36 PM documented in this encounter [facility] 01-14-2025 Note [place] [facility] - [facility] Subjective Katalina Hutchins is a 59 y.o. [...] 2024 in the emergency room at the [facility] because of chest pain. Her ECG [...] capsule by (more content not included)... [facility] 12-12-2024 Telephone encounter Note Contact the patient, I checked with [facility] centralized scheduling about her ECHO and stress test, this is still in the process of getting approved with insurance. This was the reason she was to fu today, so lets push her appt out another 4 weeks [place] [facility] 12-12-2024 Miscellaneous Notes Contact the patient, I checked with [facility] centralized scheduling about her ECHO and stress test, this is still in the process of getting approved with insurance. 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 Katalina Echo. This is like the 3rd or [...] what is going on. My number is [phone]. Birthday is [id number]. I do not know if she wants [...] me a little bit now. Thank you. 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 Katalina Echo. This is like the 3rd or [...] what is going on. My number is [phone]. Birthday is . I do not know [...] now. Thank you. documented in this encounter [facility] 11-23-2024 Telephone encounter Note Pt was notified of recent results and f/u appt will be coordinated per PSS. Please sign pended refill. Argenis Reynolds RN [facility] 11-23-2024 Miscellaneous Notes Pt was notified of recent results and f/u appt will be coordinated per PSS. Please sign pended refill. Argenis Reynolds RN documented in this encounter [facility] 11-22-2024 Telephone encounter Note Call [...] pended lab orders for 1 year. Argenis Reynolds RN [facility] 11-22-2024 Miscellaneous Notes Call placed [...] pended lab orders for 1 year. Argenis Reynolds RN documented in this encounter [facility] 11-21-2024 Note HNO ID: [id number] Author: Zion PRINGLE MD Service: ? Author Type: Physician Type: Progress Notes Filed: 11/29/2024 15:05 Note Text: AMBULATORY Virtual VISIT Katalina Hutchins has consented to this telephone encounter. Persons Present: patient Chief Complaint/Reason: Thyroid, papillary classic variant bilateral, multifocal on the right with lymph node involvement, stage I [id number], status post total thyroidectomy. Patient received I-131 [...] right with lymph node involvement, stage I [id number], status post total thyroidectomy. Plan: Doing well. On appropriate TSH suppression/levothyroxine replacement. Thyroglobulin remains undetectable. Recommend recheck in 1 year. Total Time Spent: 10 minutes Zion Pringle MD [facility] 11-21-2024 History of Present illness Narrative AMBULATORY Virtual VISIT Katalina Hutchins has consented to this telephone encounter. Persons Present: patient Chief Complaint/Reason: Thyroid, papillary classic variant bilateral, multifocal on the right with lymph node involvement, stage I [id number], status post total thyroidectomy. Patient received I-131 [...] right with lymph node involvement, stage I [id number], status post total thyroidectomy. Plan: Doing well. On appropriate TSH suppression/levothyroxine replacement. Thyroglobulin remains undetectable. Recommend recheck in 1 year. Total Time Spent: 10 minutes Zion Pringle MD documented in this encounter [facility] 11-13-2024 History of Present illness Narrative Associated Problem(s): Chest pain of unknown etiology Risk factors; uncontrolled DM, HTN, family hx CAD, OR Would recommend ordering stress test CANNOT walk [...] mg, Oral, 2 times daily ReliOn Pen [place] 31G X 6 MM misc 1 each, [...] studies Allergic rhinitis 07/04/2023 Anxiety and depression ([facility]) 06/09/2023 Arthritis At low risk for fall Chest pain Chronic pain Chronic pain of right knee COVID-19 virus detected DM (diabetes mellitus) ([facility]) 06/2017 Eczema Elevated BUN Essential hypertension ([facility]) 06/09/2023 Hidradenitis suppurativa HLD (hyperlipidemia) ([facility]) HTN (hypertension) (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) Morbid obesity with body mass index (BMI) of 40.0 to 49.9 ([facility]) Multinodular goiter ([facility]) Non compliance w medication regimen Onychomycosis KARNIE (obstructive sleep apnea) Papillary thyroid carcinoma ([facility]) Paresthesia of left lower extremity Parotid mass Post-operative hypothyroidism ([facility]) Postmenopausal bleeding Sinusitis Type 2 diabetes mellitus with hyperglycemia ([facility]) Uncontrolled type 2 diabetes mellitus with hyperglycemia, with long-term current use of insulin ([facility]) 06/09/2023 UTI symptoms Vitamin D deficiency Past Surgical History: Procedure Laterality Date CHOLECYSTECTOMY FINE NEEDLE ASPIRATE 03/10/2016 FNA left parotid IR FINE NEEDLE ASPIRATION THYROID 02/08/2020 OTHER SURGICAL HISTORY Cyst removed Armpit OTHER SURGICAL HISTORY multiple r/o boils ROTATOR CUFF REPAIR Right TOTAL KNEE ARTHROPLASTY Left 04/2015 DR. CABALLERO TOTAL THYROIDECTOMY 03/25/2020 at [facility]: papillary carcinoma 1/2 nodes positive in [...] This Visit Essential hypertension (CMS/HCC) - Primary Please check blood pressure daily and record DASH diet Limit caffeine Take medication as directed Contact office if chest pain, pressure, dizziness, shortness of breath, swelling legs Recommend slow position changes Current meds: hydrochlorothiazide, losartan Relevant Orders STRESS TEST LEXISCAN Echocardiogram 2D complete Uncontrolled type 2 diabetes mellitus with hyperglycemia, with long-term current use of insulin (CMS/HCC) Check blood sugars daily, notify if <70 [...] factors; uncontrolled DM, HTN, family hx CAD, OR Would recommend ordering stress test CANNOT walk on treadmill d/t arthritis in knees Will order lexiscan Relevant Orders STRESS TEST LEXISCAN Echocardiogram 2D complete Associated Problem(s): Uncontrolled type 2 diabetes mellitus with hyperglycemia, with long-term current use of insulin ([facility]) Check blood sugars daily, notify [...] meds: hydrochlorothiazide, losartan documented in this encounter [facility] 11-13-2024 Instructions Katalina Colbert NP - 11/13/2024 3:00 PM EDT Stress test and echo at [facility] documented in this encounter [facility] 11-13-2024 Telephone encounter Note Spoke with patient & rescheduled her phone visit out 1 week on 11/21/2024 at 4 pm. Martina Gabriele ELLA Guzman [facility] 11-13-2024 Miscellaneous Notes Spoke with patient & rescheduled her phone visit out 1 week on 11/21/2024 at 4 pm. Martina Gabriele ELLA Guzman Lvm for patient to call back and move phone visit appt out a week. Martina Gabriele ELLA Guzman Call placed to [facility] due to still not having TG total result. Per lab, they checked with lab pam this am and result still pending. PSS- please call pt and delay phone appt 1 week so we have result. Thank you Argenis Reynolds, RN documented in this encounter [facility] 11-13-2024 Telephone encounter Note Lvm for patient to call back and move phone visit appt out a week. Martina Gabriele ELLA Guzman [facility] 11-13-2024 Telephone encounter Note Call placed to [facility] due to still not having TG total result. Per lab, they checked with lab pam this am and result still pending. PSS- please call pt and delay phone appt 1 week so we have result. Thank you Argenis Reynolds RN [facility] 11-08-2024 Note HNO ID: [id number] Author: ?, ?, ? Service: ? Author Type: ? Type: Progress Notes Filed: 11/21/2024 10:48 Note Text: opened in error [facility] 09-07-2024 Telephone encounter Note Please send Long Acting insulin for 90 days to lucíamichell cruznoelle pt is out! [facility] 09-07-2024 Miscellaneous Notes Please send Long Acting insulin for 90 days to arturo cruznoelle pt is out! documented in this encounter [facility] 08-13-2024 History of Present illness Narrative Images from the original note were not included. Katailna Hutchins is a 59 y.o. female presents [...] compliance problems. There is no history of CAD/OR, heart failure or PVD. Anxiety Presents for [...] mg, Oral, 2 times daily ReliOn Pen [place] 31G X 6 MM misc 1 each, [...] studies Allergic rhinitis 07/04/2023 Anxiety and depression ([facility]) 06/09/2023 Arthritis At low risk for fall Chest pain Chronic pain Chronic pain of right knee COVID-19 virus detected DM (diabetes mellitus) ([facility]) 06/2017 Eczema Elevated BUN Essential hypertension ([facility]) 06/09/2023 Hidradenitis suppurativa HLD (hyperlipidemia) ([facility]) HTN (hypertension) (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) Morbid obesity with body mass index (BMI) of 40.0 to 49.9 ([facility]) Multinodular goiter ([facility]) Non compliance w medication regimen Onychomycosis KARINE (obstructive sleep apnea) Papillary thyroid carcinoma ([facility]) Paresthesia of left lower extremity Parotid mass Post-operative hypothyroidism ([facility]) Postmenopausal bleeding Sinusitis Type 2 diabetes mellitus with hyperglycemia ([facility]) Uncontrolled type 2 diabetes mellitus with hyperglycemia, with long-term current use of insulin ([facility]) 06/09/2023 UTI symptoms Vitamin D deficiency Past Surgical History: Procedure Laterality Date CHOLECYSTECTOMY FINE NEEDLE ASPIRATE 03/10/2016 FNA left parotid IR FINE NEEDLE ASPIRATION THYROID 02/08/2020 OTHER SURGICAL HISTORY Cyst removed Armpit OTHER SURGICAL HISTORY multiple r/o boils ROTATOR CUFF REPAIR Right TOTAL KNEE ARTHROPLASTY Left 04/2015 DR. CABALLERO TOTAL THYROIDECTOMY 03/25/2020 at [facility]: papillary carcinoma 1/2 nodes positive in [...] List Items Addressed This Visit Essential hypertension ([facility]) Please check blood pressure daily [...] hyperglycemia, with long-term current use of insulin ([facility]) Check blood sugars daily, notify [...] / creatinine, urine ratio Anxiety and depression ([facility]) - Primary Current medication is Duloxetine FRANCES 7=4 PHQ 9=3 Bilateral lower extremity edema Current medication: hydrochlorothiazide Recommend compression stockings, elevate feet as much as possible and limit sodium Relevant Medications hydroCHLOROthiazide (Microzide) 12.5 MG capsule Papillary thyroid carcinoma ([facility]) Continue with dr campa He [...] written and given to patient Mixed hyperlipidemia ([facility]) Is on statin therapy Check labs yearly and prn dose changes Class 3 severe obesity due to excess calories with serious comorbidity and body mass index (BMI) of 50.0 to 59.9 in adult ([facility]) Discussed with patient their BMI [...] for weight loss. Associated Problem(s): Mixed hyperlipidemia ([facility]) Is on statin therapy Check labs yearly and prn dose changes Associated Problem(s): Anxiety and depression ([facility]) Current medication is Duloxetine FRANCES 7=4 PHQ 9=3 Associated Problem(s): Uncontrolled type 2 diabetes mellitus with hyperglycemia, with long-term current use of insulin ([facility]) Check blood sugars daily, notify if <70 or >200. Take medications (pills or insulin) as directed. Monitor for s/s of hypoglycemia (sweaty, dizziness, nausea, vomiting, or shakiness). Watch for increase in thirst, urination, or appetite. Inspect feet frequently monitoring for open wounds , and also recommend yearly eye exam. Is under care of [facility] for this Is taking arb, statin, asa, insulin as well Current A1c is 9.5% on 07/31 Associated Problem(s): Papillary thyroid carcinoma ([facility]/HCC) Continue with dr campa He also manages her thyroid dose Associated Problem(s): Class 3 severe obesity due to excess calories with serious comorbidity and body mass index (BMI) of 50.0 to 59.9 in adult ([facility]) Discussed with patient their BMI [...] and limit sodium Associated Problem(s): Essential hypertension ([facility] [place]/[facility]CC) Please check blood pressure daily and record [...] given to patient documented in this encounter [facility] 08-13-2024 Instructions Katalina Colbert NP - 08/13/2024 2:00 PM EDT Order for pt for PAP head gear etc Lab order written documented in this encounter [facility] 07-24-2024 Telephone encounter Note Orders faxed to [facility] and mailed to patient home. [facility] 07-24-2024 Miscellaneous Notes Orders faxed to [facility] and mailed to patient home. Patient scheduled for 3 month phone visit. Just waiting on orders to be signed to be mailed to patient and faxed to [place]. Call placed to pt to check status [...] months out. Please fax lab orders to [place] once signed and also mail paper copy of all orders to patient. Thank you Argenis Reynolds RN documented in this encounter [facility] 07-24-2024 Telephone encounter Note Patient scheduled for 3 month phone visit. Just waiting on orders to be signed to be mailed to patient and faxed to [place]. [facility] 07-24-2024 Telephone encounter Note Call [...] months out. Please fax lab orders to [place] once signed and also mail paper copy of all orders to patient. Thank you Argenis Reynolds RN [facility] 07-13-2024 History of Present illness [...] studies Allergic rhinitis 07/04/2023 Anxiety and depression ([facility]) 06/09/2023 Arthritis At low risk for fall Chest pain Chronic pain Chronic pain of right knee COVID-19 virus detected DM (diabetes mellitus) ([facility]) 06/2017 Eczema Elevated BUN Essential hypertension ([facility]) 06/09/2023 Hidradenitis suppurativa HLD (hyperlipidemia) ([facility]) HTN (hypertension) (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) Morbid obesity with body mass index (BMI) of 40.0 to 49.9 ([facility]) Multinodular goiter ([facility]) Non compliance w medication regimen Onychomycosis KARINE (obstructive sleep apnea) Papillary thyroid carcinoma ([facility]) Paresthesia of left lower extremity Parotid mass Post-operative hypothyroidism ([facility]) Postmenopausal bleeding Sinusitis Type 2 diabetes mellitus with hyperglycemia ([facility]) Uncontrolled type 2 diabetes mellitus with hyperglycemia, with long-term current use of insulin ([facility]) 06/09/2023 UTI symptoms Vitamin D deficiency Past Surgical History: Procedure Laterality Date CHOLECYSTECTOMY FINE NEEDLE ASPIRATE 03/10/2016 FNA left parotid IR FINE NEEDLE ASPIRATION THYROID 02/08/2020 OTHER SURGICAL HISTORY Cyst removed Armpit OTHER SURGICAL HISTORY multiple r/o boils ROTATOR CUFF REPAIR Right TOTAL KNEE ARTHROPLASTY Left 04/2015 DR. CABALLERO TOTAL THYROIDECTOMY 03/25/2020 at [facility]: papillary carcinoma 1/2 nodes positive in [...] with long-term current use of insulin (CMS/HCC) - POCT glycosylated hemoglobin (Hb A1C) docked device - POCT glucose manually resulted Continue with Lantus 60, Humalog 2024 according to meal size, metformin 1000 twice a day, Januvia 100 mg once a day. Insulin long-term use (CMS/HCC) Hyperlipemia, mixed (CMS/[facility]) Vitamin D deficiency Encounter for dietary consultation Class 3 severe obesity with serious comorbidity and body mass index (BMI) of 50.0 to 59.9 in adult, unspecified obesity type (CMS/HCC) Follow up in about 4 months (around [...] visit: No Eye exam current: Yes Sees director of blood: No documented in this encounter [facility] 05-09-2024 History of Present illness Narrative [...] 100 UNITS) insulin pen needle (ReliOn Pen [place]) 31G x 6 mm misc 1 each, [...] studies Allergic rhinitis 07/04/2023 Anxiety and depression ([facility]) 06/09/2023 Arthritis At low risk for fall Chest pain Chronic pain Chronic pain of right knee COVID-19 virus detected DM (diabetes mellitus) ([facility]) 06/2017 Eczema Elevated BUN Essential hypertension ([facility]) 06/09/2023 Hidradenitis suppurativa HLD (hyperlipidemia) ([facility]) HTN (hypertension) ([facility]) Hypercalcemia Insomnia group home (current) use of insulin ([facility]) Morbid obesity with body mass index (BMI) of 40.0 to 49.9 ([facility]) Multinodular goiter ([facility]) Non compliance w medication regimen Onychomycosis KARINE (obstructive sleep apnea) Papillary thyroid carcinoma ([facility]) Paresthesia of left lower extremity Parotid mass Post-operative hypothyroidism ([facility]) Postmenopausal bleeding Sinusitis Type 2 diabetes mellitus with hyperglycemia ([facility]) Uncontrolled type 2 diabetes mellitus with hyperglycemia, with long-term current use of insulin ([facility]) 06/09/2023 UTI symptoms Vitamin D deficiency Past Surgical History: Procedure Laterality Date CHOLECYSTECTOMY FINE NEEDLE ASPIRATE 03/10/2016 FNA left parotid IR FINE NEEDLE ASPIRATION THYROID 02/08/2020 OTHER SURGICAL HISTORY Cyst removed Armpit OTHER SURGICAL HISTORY multiple r/o boils ROTATOR CUFF REPAIR Right TOTAL KNEE ARTHROPLASTY Left 04/2015 DR. CABALLERO TOTAL THYROIDECTOMY 03/25/2020 at [facility]: papillary carcinoma 1/2 nodes positive in [...] List Items Addressed This Visit Essential hypertension ([facility]) - Primary Please check blood pressure daily and record DASH diet Limit caffeine Take medication as directed Contact office if chest pain, pressure, dizziness, shortness of breath, swelling legs Recommend slow position changes Current meds: hydrochlorothiazide, losartan Uncontrolled type 2 diabetes mellitus with hyperglycemia, with long-term current use of insulin (CMS/HCC) Sugars are running 200-300, mother a few [...] taking arb, statin, asa Anxiety and depression (CMS/HCC) Mother recently Current medication is duloxetine at 60mg Relevant Medications DULoxetine (Cymbalta) [address] capsule Bilateral lower extremity edema Limit sodium Elevate legs Cont diuretic Allergic rhinitis Continue with flonase and yolanda Relevant Medications fexofenadine (Yolanda) 180 MG tablet fluticasone (Flonase) 50 MCG/ACT nasal spray KARINE (obstructive sleep apnea) Non compliant with use Non compliant use can increase risk for stroke, OR, HTN, sudden Vitamin D deficiency Takes supplement daily Check labs yearly and prn Class 3 severe obesity due to excess calories with serious comorbidity and body mass index (BMI) of 50.0 to 59.9 in adult ([facility]) Discussed with patient their BMI [...] and yolanda Associated Problem(s): Anxiety and depression ([facility]) Mother recently Current medication is duloxetine at 60mg Associated Problem(s): Class 3 severe obesity due to excess calories with serious comorbidity and body mass index (BMI) of 50.0 to 59.9 in adult ([facility] [place]) Discussed with patient their BMI [...] hyperglycemia, with long-term current use of insulin ([facility]) Sugars are running 200-300, mother [...] legs Cont diuretic Associated Problem(s): Essential hypertension ([facility]) Please check blood pressure daily and record DASH diet Limit caffeine Take medication as directed Contact office if chest pain, pressure, dizziness, shortness of breath, swelling legs Recommend slow position changes Current meds: hydrochlorothiazide, losartan Associated Problem(s): KARINE (obstructive sleep apnea) Non compliant with use Non compliant use can increase risk for stroke, OR, HTN, sudden documented in this encounter [facility] 05-09-2024 Instructions Katalina Colbert NP - 05/09/2024 1:00 PM EST Diabetes: continue with dr khan Need mammogram-order faxed documented in this encounter [facility] 03-23-2024 Telephone encounter Note Patient called this afternoon, apologizing for missing Dr. Pringle's phone appointment. Her Mother had on Tuesday and had family over and didn't hear her phone ringing. She wanted to see if she should reschedule- but when told about the phone visit and labs in Jul 2024 she was ok with those appointments. ELLA Navarro [facility] 03-23-2024 Miscellaneous Notes Patient called this afternoon, apologizing for missing Dr. Pringle's phone appointment. Her Mother had on Tuesday and had family over and didn't hear her phone ringing. She wanted to see if she should reschedule- but when told about the phone visit and labs in Jul 2024 she was ok with those appointments. ELLA Navarro Faxed orders to [facility]. To be drawn by 07/11 to [...] labs. Once signed, please fax orders to [place] and also mail paper copy to patient. Dr Pringle- please sign pended orders for July and synthroid refill so pt will not run out again. Thank you Argenis Reynolds RN documented in this encounter [facility] 03-23-2024 Telephone encounter Note Faxed orders to [facility]. To be drawn by 07/11 to be ready for phone visit on 07/25. Also mailed copies to patient. [facility] 03-23-2024 Telephone encounter Note Watching for signed orders and will finish [facility] 03-22-2024 Telephone encounter Note PSS-Per Dr Pringle, he was unable to reach pt for her phone visit. He would like patient to have labs rechecked and then a phone visit in July. These labs will take 7-10 days, so pt will need to have phone visit scheduled 2 weeks after labs. Once signed, please fax orders to [place] and also mail paper copy to patient. Dr Pringle- please sign pended orders for July and synthroid refill so pt will not run out again. Thank you Argenis Reynolds RN [facility] 03-22-2024 Note HNO ID: [id number] Author: Zion PRINGLE MD Service: ? Author Type: Physician Type: Progress Notes Filed: 03/22/2024 14:36 Note Text: Left message. Zion Pringle MD [facility] 03-22-2024 History of Present illness Narrative Left message. Zion Pringle MD documented in this encounter [facility] 03-13-2024 Note HNO ID: [id number] Author: Zion PRINGLE MD Service: ? Author Type: Physician Type: Progress Notes Filed: 06/05/2024 13:12 Note Text: AMBULATORY TELEPHONE VISIT Call made on 03/24/23 Katalina Hutchins has consented to this telephone encounter. Persons Present: patient Chief Complaint/Reason: Thyroid, papillary classic variant bilateral, multifocal on the right with lymph node involvement, stage I [id number], status post total thyroidectomy. Patient received I-131 [...] right with lymph node involvement, stage I [id number], status post total thyroidectomy. Plan: TSH appropriate. Clinically doing well without issues. T4 slightly elevated however given or her TSH shows and lack of hyperthyroid symptoms recommend keeping same dose and recheck labs in 6 months. Total Time Spent: 5 minutes Zion Pringle MD [facility] 03-08-2024 History of Present illness Narrative Katalina [...] 100 UNITS)
insulin pen needle (ReliOn Pen [place]) 31G x 6 mm misc 1 each, [...] studies Allergic rhinitis 07/04/2023 Anxiety and depression ([facility]) 06/09/2023 Arthritis At low risk for fall Chest pain Chronic pain Chronic pain of right knee COVID-19 virus detected DM (diabetes mellitus) ([facility]) 06/2017 Eczema Elevated BUN Essential hypertension ([facility]) 06/09/2023 Hidradenitis suppurativa HLD (hyperlipidemia) ([facility]) HTN (hypertension) (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) Morbid obesity with body mass index (BMI) of 40.0 to 49.9 ([facility] [place]) Multinodular goiter (CMS/[facility]) Non compliance w medication regimen Onychomycosis KARINE (obstructive sleep apnea) Papillary thyroid carcinoma ([facility]) Paresthesia of left lower extremity Parotid mass Post-operative hypothyroidism (CMS/HCC) Postmenopausal bleeding Sinusitis Type 2 diabetes mellitus with hyperglycemia ([facility]) Uncontrolled type 2 diabetes mellitus with hyperglycemia, with long-term current use of insulin ([facility]) 06/09/2023 UTI symptoms Vitamin D deficiency Past Surgical History: Procedure Laterality Date CHOLECYSTECTOMY FINE NEEDLE ASPIRATE 03/10/2016 FNA left parotid IR FINE NEEDLE ASPIRATION THYROID 02/08/2020 OTHER SURGICAL HISTORY Cyst removed Armpit OTHER SURGICAL HISTORY multiple r/o boils ROTATOR CUFF REPAIR Right TOTAL KNEE ARTHROPLASTY Left 04/2015 DR. CABALLERO TOTAL THYROIDECTOMY 03/25/2020 at [facility]: papillary carcinoma 1/2 nodes positive in [...] 2 diabetes mellitus with hyperglycemia, unspecified whether fci insulin use ([facility]) - POCT glycosylated hemoglobin (Hb A1C) docked device - POCT glucose manually resulted Insulin long-term use ([facility]) Hyperlipemia, mixed ([facility]) Vitamin D deficiency Encounter for dietary consultation Class 3 severe obesity with serious comorbidity and body mass index (BMI) of 50.0 to 59.9 in adult, unspecified obesity type ([facility]) Follow up in about 4 months (around 07/09/2024). documented in this encounter [facility] 02-28-2024 Telephone encounter Note MEDICATION SENT TO PHARMACY. [facility] 02-28-2024 Miscellaneous Notes MEDICATION SENT TO PHARMACY. Pen needle refill needed please and thank you! documented in this encounter [facility] 02-27-2024 Telephone encounter Note Pen needle refill needed please and thank you! [facility] 02-14-2024 Telephone encounter Note Please contact pt to reschedule phone visit. Labs in 4 weeks with phone visit AFTER. Argenis Reynolds, RN [facility] 02-14-2024 Miscellaneous Notes Please contact pt to reschedule phone visit. Labs in 4 weeks with phone visit AFTER. Argenis Reynolds, SHAYLA ARMANI- can you please respond to below. As of now, pt is still on for follow up phone call tomorrow. Thank you! Argenis Reynolds RN Dr. Victoria please sign pended levothyroxine refill [...] Kaitlynn Carreon RN documented in this encounter [facility] 02-14-2024 Telephone encounter Note ARMANI- can you please respond to below. As of now, pt is still on for follow up phone call tomorrow. Thank you! Argenis Reynolds RN [facility] 02-08-2024 History of Present illness [...] mg, Oral, 2 times daily ReliOn Pen [place] 31G X 6 MM misc 1 each, [...] studies Allergic rhinitis 07/04/2023 Anxiety and depression ([facility]) 06/09/2023 Arthritis At low risk for fall Chest pain Chronic pain Chronic pain of right knee COVID-19 virus detected DM (diabetes mellitus) ([facility]) 06/2017 Eczema Elevated BUN Essential hypertension ([facility]) 06/09/2023 Hidradenitis suppurativa HLD (hyperlipidemia) ([facility] [place]) Hypercalcemia Insomnia Multinodular goiter ([facility]/HCC) Non compliance w medication regimen Onychomycosis Papillary thyroid carcinoma ([facility]) Paresthesia of left lower extremity Parotid mass Post-operative hypothyroidism ([facility]) Postmenopausal bleeding Sinusitis Uncontrolled type 2 diabetes mellitus with hyperglycemia, with long-term current use of insulin ([facility]) 06/09/2023 UTI symptoms Past Surgical History: Procedure Laterality Date CHOLECYSTECTOMY FINE NEEDLE ASPIRATE 03/10/2016 FNA left parotid IR FINE NEEDLE ASPIRATION THYROID 02/08/2020 OTHER SURGICAL HISTORY Cyst removed Armpit OTHER SURGICAL HISTORY multiple r/o boils ROTATOR CUFF REPAIR Right TOTAL KNEE ARTHROPLASTY Left 04/2015 DR. CABALLERO TOTAL THYROIDECTOMY 03/25/2020 at [facility]: papillary carcinoma 1/2 nodes positive in [...] 100 MG tablet documented in this encounter [facility] 02-08-[address] Victoria [...] medication routinely? Please advise. Kaitlynn Carreon RN [facility] 09-30-2023 Miscellaneous Notes ----- Message [...] put in chart. documented in this encounter [facility] 09-30-2023 Telephone encounter Note ----- Message from Latosha Corbett DO sent at 09/30/2023 8:03 AM EDT ----- Please let patient know that she had precancerous tubular adenoma and I recommend repeat colonoscopy in 5 years for surveillance unless problems prior to that. Thanks, Dr. Donovan [facility] 09-30-2023 Telephone encounter Note Spoke with patient regarding pathology results. Patient verbally understood with no further questions. Recall will be put in chart. [facility] 09-13-2023 History of Present illness Narrative [...] Anxiety Arthritis Diabetes mellitus type 2, controlled ([facility]) Eczema Fatty liver Hyperlipidemia Hypertension Obesity Seasonal allergies Shortness of breath Sleep apnea CPAP Thyroid cancer ([facility]) Visual impairment glasses Past Surgical History: Procedure Laterality Date BIOPSY MASS parotid biopsy left side CHOLECYSTECTOMY COLONOSCOPY N/A 08/31/2018 Performed by Latosha Corbett DO at [facility]ES[facility] TRUNK / [...] patient/family/caregiver Referring and communicating with other health rn care transition Encounter for colonoscopy in patient with family history of colon cancer [Z12.11, Z80.0] CLARE ROJAS [facility] [place] This note was created with the assistance of a speech recognition program. While intending to generate a timely document that accurately reflects the content of the visit, no guarantee can be provided that every grammatical or spelling mistake has been or will be identified or corrected. Thank you for your understanding. CLARE Rojas 09/13/23 1037 documented in this encounter [facility] 08-04-2023 Miscellaneous Notes Changed appt Spoke to pt as thyroglobulin is not back yet from [place]. They are unsure when it will result. PSS- please change phone visit to Tuesday, 08/08 at 3:30pm. Thank you documented in this encounter [facility] 05-04-2023 Miscellaneous Notes Please review and sign if agreeable. Argenis Reynolds, RN documented in this encounter [facility] 03-24-2023 Miscellaneous Notes Images from the original note were not included. Mailed patient her lab tests she gets elsewere and scheudled appt for her EngelerZion MD P [facility] Nurse Jt; Amanda Hammonds See patient back or televisit 4 months with labs documented in this encounter [facility] 03-24-2023 History of Present illness Narrative AMBULATORY TELEPHONE VISIT Call made on 03/24/23 Katalina Hutchins has consented to this telephone encounter. Persons Present: patient Chief Complaint/Reason: Thyroid, papillary classic variant bilateral, multifocal on the right with lymph node involvement, stage I [id number], status post total thyroidectomy. Patient received I-131 [...] right with lymph node involvement, stage I [id number], status post total thyroidectomy. Plan: TSH improved, a little higher than ideal however given T4 elevation recommend maintaining current Synthroid dose. Patient without any clinical issues related to this. Plan to recheck labs in 4 months. Total Time Spent: 6 minutes Zion Pringle MD documented in this encounter [facility] 11-18-2022 Miscellaneous Notes Call placed to pt due to not having labs prior to phone visit with Dr Pringle. LM requesting she CB to reschedule after she Is able to have labs. Argenis Reynolds RN documented in this encounter [facility] 11-18-2022 History of Present illness Narrative AMBULATORY TELEPHONE VISIT Katalina Sujata has consented to this telephone encounter. Persons Present: patient Chief Complaint/Reason: Thyroid, papillary classic variant bilateral, multifocal on the right with lymph node involvement, stage I [id number], status post total thyroidectomy. Patient received I-131 [...] right with lymph node involvement, stage I [id number], status post total thyroidectomy. Plan: TSH improved, still high. Recommend maintaining Synthroid 200 mcg daily. Recheck in 3-4 months. Total Time Spent: 4 minutes Zion Pringle MD Call made on 11/23/22 documented in this encounter [facility] 09-09-2022 History of Present illness Narrative AMBULATORY TELEPHONE VISIT Katalina Hutchins has consented to this telephone encounter. Persons Present: patient Chief Complaint/Reason: Thyroid, papillary classic variant bilateral, multifocal on the right with lymph node involvement, stage I [id number], status post total thyroidectomy. Patient received I-131 [...] right with lymph node involvement, stage I [id number], status post total thyroidectomy. Plan: TSH needs more suppression. Recommend increasing Synthroid to 200 mcg daily. Recheck in 6 to 8 weeks. Encourage patient to call should she feel she is not tolerating this dose. Total Time Spent: 6 minutes Zion Pringle MD documented in this encounter [facility] 09-08-2022 Miscellaneous Notes Lab orders faxed to [place] per patient request. documented in this encounter [facility] 06-10-2022 History of Present illness Narrative AMBULATORY TELEPHONE VISIT Katalina Hutchins has consented to this telephone encounter. Persons Present: patient Chief Complaint/Reason: Thyroid, papillary classic variant bilateral, multifocal on the right with lymph node involvement, stage I [id number], status post total thyroidectomy. Patient received I-131 ablative therapy, 75.9 mCi on 07/09/2020 HPI: Doing well. Denies significant problems. No chest pain palpitations feelings of anxiousness. Denies dysphagia. Data Reviewed: Most recent labs Ref. Range 05/29/2020 11:02 11/18/2020 02/10/2021 11/08/2406/17/2021 10/07/21 01/29/22 05/27/22 T4 Latest Ref Range: [...] right with lymph node involvement, stage I [id number], status post total thyroidectomy. Plan: Labs okay with the exception of TSH. Patient states that she had ran out of her prescription will be for so this is not reliable. Recommend continue the current dose and recheck in 3 months. Otherwise patient is doing well. Thyroglobulin remains undetectable. Total Time Spent: 7 minutes Zion Pringle MD documented in this encounter [facility] 06-02-2022 History of Present illness Narrative AMBULATORY TELEPHONE VISIT Left message. documented in this encounter [facility] 04-16-2022 Miscellaneous Notes Levothyroxine refill request received from [facility] pharmacy via fax. Order pending your [...] Kaitlynn Carreon LPN documented in this encounter [facility] 02-04-2022 History of Present illness Narrative AMBULATORY TELEPHONE VISIT Persons Present: Did not get a hold of patient.(error) I did get a hold of pt by phone. 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 Patient received I-131 [...] right with lymph node involvement, stage I [id number], status post total thyroidectomy. Plan: Given mixed results with T4 T3 and TSH plan to hold current dose. Recheck 2 to 3 months. Total Time Spent:6 minutes Zion Pringle MD documented in this encounter [facility] 11-05-2021 History of Present illness Narrative AMBULATORY TELEPHONE VISIT Persons Present: Did not get a hold of patient. 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 Patient received I-131 [...] right with lymph node involvement, stage I [id number], status post total thyroidectomy. Plan: TSH level much improved however still little higher than I would like however given her elevated T4 level plan to keep patient at her current dose and recheck in 2 to 3 months. Total Time Spent:6 minutes Zion Pringle MD documented in this encounter [facility] 10-16-2021 History of Present illness Narrative Unless she has immediate concerns or questions okay to push out 2 months AMBULATORY TELEPHONE VISIT Persons Present: Did not get a hold of patient. 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 Patient received I-131 [...] right with lymph node involvement, stage I [id number], status post total thyroidectomy. Plan: TSH level much improved however still little higher than I would like however given her elevated T4 level plan to keep patient at her current dose and recheck in 2 to 3 months. Total Time Spent: 0 minutes Zion Pringle MD documented in this encounter [facility] Evaluation note Diagnosis Thyroid cancer (HCC)- Primary Malignant neoplasm of [facility] gland [facility] Thyroid [facility] (HCC)- Primary Malignant neoplasm of [facility] gland [facility] Thyroid cancer (HCC)- Primary Malignant neoplasm of thyroid gland [facility] Diagnosis Thyroid cancer (HCC)- Primary Malignant neoplasm of thyroid gland [facility] Diagnosis Thyroid cancer (HCC)- Primary Malignant neoplasm of thyroid gland [facility] 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 Thyroid cancer (HCC) Malignant neoplasm of thyroid gland [facility] Diagnosis History of thyroid cancer- Primary Personal history of malignant neoplasm of thyroid documented in this encounter [facility]* Diagnosis Acute non-recurrent sinusitis of other sinus- Primary [facility] Diagnosis Type 2 diabetes mellitus with hyperglycemia, 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)- Primary Insulin long-term use ([facility]) Encounter for long-term (current) use of insulin Hyperlipemia, mixed ([facility]) Mixed hyperlipidemia Vitamin D deficiency Encounter for dietary consultation Class 3 severe obesity with serious comorbidity and body mass index (BMI) of 50.0 to 59.9 in adult, unspecified obesity type ([facility]) [facility] Diagnosis History of thyroid cancer- Primary Personal history of malignant neoplasm of thyroid [facility] Diagnosis History of thyroid cancer- Primary Personal history of malignant neoplasm of thyroid documented in this encounter [facility] note* Diagnosis Essential hypertension ([facility]/HCC)- Primary Unspecified essential hypertension BMI 45.0-49.9, adult ([facility]) Uncontrolled type 2 diabetes mellitus with hyperglycemia, with long-term current use of insulin ([facility]) Anxiety and depression ([facility] Essential hypertension ([facility]/HCC)- Primary Unspecified essential hypertension Bilateral lower extremity edema Vitamin D deficiency Mixed hyperlipidemia ([facility]) Mixed hyperlipidemia History of rectal polyps Uncontrolled type 2 diabetes mellitus with hyperglycemia, with long-term current use of insulin ([facility]) Anxiety and depression ([facility]) Allergic rhinitis, unspecified seasonality, unspecified trigger Essential hypertension (CMS/HCC)- Primary Unspecified essential hypertension Malignant neoplasm of thyroid gland (CMS/HCC) Malignant neoplasm of thyroid gland Pain of left hip Lumbar back pain with radiculopathy affecting left lower extremity Bilateral lower extremity edema Uncontrolled type 2 diabetes mellitus with hyperglycemia, with long-term current use of insulin ([facility]) Class 3 severe obesity due to excess calories with serious comorbidity and body mass index (BMI) of 50.0 to 59.9 in adult ([facility]/HCC) Essential hypertension (CMS/HCC)- Primary Unspecified essential hypertension KARINE (obstructive sleep apnea) Obstructive sleep apnea (adult) (pediatric) Arthritis of knee, right Bilateral lower extremity edema Class 3 severe obesity due to excess calories with serious comorbidity and body mass index (BMI) of 50.0 to 59.9 in adult ([facility]) Malignant neoplasm of thyroid gland ([facility]/HCC) Malignant neoplasm of thyroid gland Papillary thyroid carcinoma ([facility]/HCC) Anxiety and depression ([facility]) Hidradenitis suppurativa of multiple sites Yeast infection of the vagina- Primary Candidiasis of vulva and vagina documented in this encounter [facility]* Diagnosis Essential hypertension ([facility])- Primary Unspecified essential hypertension BMI 45.0-49.9, adult ([facility]) Uncontrolled type 2 diabetes mellitus with hyperglycemia, with long-term current use of insulin ([facility]) Anxiety and depression ([facility] Essential hypertension ([facility])- Primary Unspecified essential hypertension Bilateral lower extremity edema Vitamin D deficiency Mixed hyperlipidemia ([facility]) Mixed hyperlipidemia History of rectal polyps Uncontrolled type 2 diabetes mellitus with hyperglycemia, with long-term current use of insulin ([facility]) Anxiety and depression ([facility]) Allergic rhinitis, unspecified seasonality, unspecified trigger Essential hypertension ([facility])- Primary Unspecified essential hypertension Malignant neoplasm of thyroid gland ([facility]) Malignant neoplasm of thyroid gland Pain of left hip Lumbar back pain with radiculopathy affecting left lower extremity Bilateral lower extremity edema Uncontrolled type 2 diabetes mellitus with hyperglycemia, with long-term current use of insulin ([facility]) Class 3 severe obesity due to excess calories with serious comorbidity and body mass index (BMI) of 50.0 to 59.9 in adult ([facility]) Essential hypertension ([facility])- Primary Unspecified essential hypertension KARINE (obstructive sleep apnea) Obstructive sleep apnea (adult) (pediatric) Arthritis of knee, right Bilateral lower extremity edema Class 3 severe obesity due to excess calories with serious comorbidity and body mass index (BMI) of 50.0 to 59.9 in adult ([facility]) Malignant neoplasm of thyroid gland ([facility]/HCC) Malignant neoplasm of thyroid gland Papillary thyroid carcinoma ([facility]/HCC) Anxiety and depression ([facility]) Hidradenitis suppurativa of multiple sites Hidradenitis suppurativa of multiple sites- Primary documented in this encounter [facility]* Diagnosis Essential hypertension ([facility])- Primary Unspecified essential hypertension BMI [...] depression (CMS/HCC) Hidradenitis suppurativa of multiple sites Mixed hyperlipidemia (CMS/HCC) Mixed hyperlipidemia [facility]* Diagnosis Essential hypertension (CMS/HCC)- Primary Unspecified essential hypertension BMI 45.0-49.9, adult (CMS/[facility]) Uncontrolled type 2 diabetes mellitus [...] Other chronic pain documented in this encounter [facility]* Diagnosis Essential hypertension (CMS/HCC)- [...] encounter [facility]* Diagnosis Essential hypertension ([facility]/HCC)- Primary Unspecified essential hypertension KARINE (obstructive sleep apnea) Obstructive sleep apnea (adult) (pediatric) Arthritis of knee, right Bilateral lower extremity edema Class 3 severe obesity due to excess calories with serious comorbidity and body mass index (BMI) of 50.0 to 59.9 in adult (CMS/HCC) Malignant neoplasm of thyroid gland (CMS/HCC) Malignant neoplasm of thyroid gland Papillary thyroid carcinoma (CMS/HCC) Anxiety and depression (CMS/[facility]) Hidradenitis suppurativa of multiple sites documented [facility]* Diagnosis Vitamin D deficiency- Primary [facility]* Diagnosis Essential hypertension (CMS/HCC) Unspecified essential hypertension [facility]* Diagnosis Type 2 diabetes mellitus with hyperglycemia, with long-term current use of insulin ([facility]) documented in this encounter [facility]* Diagnosis Essential hypertension ([facility]/HCC)- Primary Unspecified essential hypertension BMI 45.0-49.9, adult ([facility]) Uncontrolled type 2 diabetes mellitus with hyperglycemia, with long-term current use of insulin (CMS/HCC) Anxiety and depression (CMS/HCC) Essential hypertension (CMS/HCC)- Primary Unspecified essential hypertension Bilateral lower extremity edema Vitamin D deficiency Mixed hyperlipidemia (CMS/HCC) Mixed hyperlipidemia History of rectal polyps Uncontrolled type 2 diabetes mellitus with hyperglycemia, with long-term current use of insulin ([facility]) Anxiety and depression ([facility]/HCC) Allergic rhinitis, unspecified seasonality, unspecified trigger Essential hypertension (CMS/HCC)- Primary Unspecified essential hypertension Malignant neoplasm of thyroid gland (CMS/HCC) Malignant neoplasm of thyroid gland Pain of left hip Lumbar back pain with radiculopathy affecting left lower extremity Bilateral lower extremity edema Uncontrolled type 2 diabetes mellitus with hyperglycemia, with long-term current use of insulin ([facility]) Class 3 severe obesity due to excess calories with serious comorbidity and body mass index (BMI) of 50.0 to 59.9 in adult ([facility]/HCC) Essential hypertension ([facility]/HCC)- Primary Unspecified essential hypertension KARINE (obstructive sleep apnea) Obstructive sleep apnea (adult) (pediatric) Arthritis of knee, right Bilateral lower extremity edema Class 3 severe obesity due to excess calories with serious comorbidity and body mass index (BMI) of 50.0 to 59.9 in adult ([facility]/HCC) Malignant neoplasm of thyroid gland (CMS/HCC) Malignant neoplasm of thyroid gland Papillary thyroid carcinoma ([facility]/HCC) Anxiety and depression (CMS/HCC) Hidradenitis suppurativa of multiple sites Essential hypertension ([facility]/HCC)- Primary Unspecified essential hypertension KARINE (obstructive sleep apnea) Obstructive sleep apnea (adult) (pediatric) Bilateral lower extremity edema Vitamin D deficiency Uncontrolled type 2 diabetes mellitus with hyperglycemia, with long-term current use of insulin ([facility]) Class 3 severe obesity due to excess calories with serious comorbidity and body mass index (BMI) of 50.0 to 59.9 in adult ([facility]) Anxiety and depression ([facility]) Allergic rhinitis, unspecified seasonality, unspecified trigger Encounter for screening mammogram for malignant neoplasm of breast Left foot pain Pain in soft tissues of limb Other chronic pain Type 2 diabetes mellitus with hyperglycemia, with long-term current use of insulin ([facility])- Primary Insulin long-term use ([facility]) Encounter for long-term (current) use of insulin Hyperlipemia, mixed ([facility]) Mixed hyperlipidemia Vitamin D deficiency Encounter for dietary consultation Class 3 severe obesity with serious comorbidity and body mass index (BMI) of 50.0 to 59.9 in adult, unspecified obesity type ([facility]) documented in this encounter [facility]* Diagnosis Essential hypertension ([facility])- Primary Unspecified essential hypertension BMI 45.0-49.9, adult ([facility]) Uncontrolled type 2 diabetes mellitus with hyperglycemia, with long-term current use of insulin ([facility]) Anxiety and depression ([facility] Essential hypertension ([facility])- Primary Unspecified essential hypertension Bilateral lower extremity edema Vitamin D deficiency Mixed hyperlipidemia ([facility]) Mixed hyperlipidemia History of rectal polyps Uncontrolled type 2 diabetes mellitus with hyperglycemia, with long-term current use of insulin ([facility]) Anxiety and depression ([facility]) Allergic rhinitis, unspecified seasonality, unspecified trigger Essential hypertension ([facility])- Primary Unspecified essential hypertension Malignant neoplasm of thyroid gland ([facility]) Malignant neoplasm of thyroid gland Pain of left hip Lumbar back pain with radiculopathy affecting left lower extremity Bilateral lower extremity edema Uncontrolled type 2 diabetes mellitus with hyperglycemia, with long-term current use of insulin ([facility]) Class 3 severe obesity due to excess calories with serious comorbidity and body mass index (BMI) of 50.0 to 59.9 in adult ([facility]) Essential hypertension ([facility]/HCC)- Primary Unspecified essential hypertension KARINE (obstructive sleep apnea) Obstructive sleep apnea (adult) (pediatric) Arthritis of knee, right Bilateral lower extremity edema Class 3 severe obesity due to excess calories with serious comorbidity and body mass index (BMI) of 50.0 to 59.9 in adult ([facility]) Malignant neoplasm of thyroid gland ([facility]/HCC) Malignant neoplasm of thyroid gland Papillary thyroid carcinoma ([facility]) Anxiety and depression ([facility]) Hidradenitis suppurativa of multiple sites Essential hypertension ([facility])- Primary Unspecified essential hypertension KARINE [...] lower extremity edema [facility] Encounter for colonoscopy in patient with family history of colon cancer- Primary Family history of colon cancer Family history of malignant neoplasm of gastrointestinal tract documented [facility]* Diagnosis History of thyroid cancer- Primary Personal history of malignant neoplasm of thyroid [facility] Essential hypertension (CMS/HCC)- [...] insulin (CMS/HCC) Mixed hyperlipidemia (CMS/HCC) Mixed hyperlipidemia documented [facility] encounter [facility]* [...] Unspecified essential hypertension documented in this encounter [facility]* Diagnosis Essential hypertension (CMS/HCC)- [...] hyperglycemia, with long-term current use of insulin (CMS/[facility]) Class 3 severe obesity due [...] Papillary thyroid carcinoma (CMS/HCC) Anxiety and depression (CMS/[facility]) Hidradenitis suppurativa of multiple sites Essential hypertension (CMS/HCC)- Primary Unspecified essential hypertension KARINE (obstructive sleep apnea) Obstructive sleep apnea (adult) (pediatric) Bilateral lower extremity edema Vitamin D deficiency Uncontrolled type 2 diabetes mellitus with hyperglycemia, with long-term current use of insulin (CMS/[facility]) Class 3 severe obesity due to excess calories with serious comorbidity and body mass index (BMI) of 50.0 to 59.9 in adult Anxiety and depression (CMS/HCC) Allergic rhinitis, unspecified seasonality, unspecified trigger Encounter for screening mammogram for malignant neoplasm of breast Left foot pain Pain in soft tissues of limb Other chronic pain Anxiety and depression (CMS/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) [facility]* Diagnosis Essential hypertension (CMS/HCC)- Primary Unspecified essential hypertension BMI 45.0-49.9, adult ([facility]) Uncontrolled type 2 diabetes mellitus with hyperglycemia, with long-term current use of insulin ([facility]) Anxiety and depression ([facility] Essential hypertension ([facility])- Primary Unspecified essential hypertension Bilateral lower extremity edema Vitamin D deficiency Mixed hyperlipidemia ([facility]) Mixed hyperlipidemia History of rectal polyps Uncontrolled type 2 diabetes mellitus with hyperglycemia, with long-term current use of insulin ([facility]) Anxiety and depression ([facility]) Allergic rhinitis, unspecified seasonality, unspecified trigger Essential hypertension ([facility])- Primary Unspecified essential hypertension Malignant neoplasm of thyroid gland ([facility]) Malignant neoplasm of thyroid gland Pain of left hip Lumbar back pain with radiculopathy affecting left lower extremity Bilateral lower extremity edema Uncontrolled type 2 diabetes mellitus with hyperglycemia, with long-term current use of insulin ([facility]) Class 3 severe obesity due to excess calories with serious comorbidity and body mass index (BMI) of 50.0 to 59.9 in adult Essential hypertension ([facility])- Primary Unspecified essential hypertension KARINE (obstructive sleep apnea) Obstructive sleep apnea (adult) (pediatric) Arthritis of knee, right Bilateral lower extremity edema Class 3 severe obesity due to excess calories with serious comorbidity and body mass index (BMI) of 50.0 to 59.9 in adult Malignant neoplasm of thyroid gland ([facility]) Malignant neoplasm of thyroid gland Papillary thyroid carcinoma ([facility]) Anxiety and depression ([facility] Hidradenitis suppurativa of multiple sites Essential hypertension ([facility])- Primary Unspecified essential hypertension KARINE (obstructive sleep apnea) Obstructive sleep apnea (adult) (pediatric) Bilateral lower extremity edema Vitamin D deficiency Uncontrolled type 2 diabetes mellitus with hyperglycemia, with long-term current use of insulin ([facility]) Class 3 severe obesity due to excess calories with serious comorbidity and body mass index (BMI) of 50.0 to 59.9 in adult Anxiety and depression ([facility]) Allergic rhinitis, unspecified seasonality, unspecified trigger Encounter for screening mammogram for malignant neoplasm of breast Left foot pain Pain in soft tissues of limb Other chronic pain Anxiety and depression ([facility])- Primary KARINE (obstructive sleep apnea) Obstructive sleep apnea (adult) (pediatric) Essential hypertension ([facility]/HCC) Unspecified essential hypertension Bilateral lower extremity edema [...] hyperglycemia, with long-term current use of insulin (CMS/HCC)- Primary documented in [facility]* Diagnosis Essential hypertension (CMS/HCC)- Primary Unspecified essential hypertension BMI 45.0-49.9, adult (CMS/[facility]) Uncontrolled type 2 diabetes mellitus [...] to 59.9 in adult Papillary thyroid carcinoma (CMS/[facility]) Uncontrolled type 2 diabetes mellitus with hyperglycemia, with long-term current use of insulin (CMS/[facility]) Mixed hyperlipidemia (CMS/[facility]) Mixed hyperlipidemia Pap smear for cervical cancer screening Screening for malignant neoplasm of the cervix Vitamin D deficiency, unspecified documented in this encounter [facility]* Diagnosis Essential hypertension (CMS/[facility])- Primary Unspecified essential hypertension BMI 45.0-49.9, adult ([facility]) Uncontrolled type 2 diabetes mellitus with hyperglycemia, with long-term current use of insulin (CMS/HCC) Anxiety and depression (CMS/HCC) Essential hypertension (CMS/[facility])- Primary Unspecified essential hypertension Bilateral [...] hyperglycemia, with long-term current use of insulin (CMS/[facility]) Class 3 severe obesity due [...] (CMS/HCC) Mixed hyperlipidemia documented in this encounter [facility]* Diagnosis Essential hypertension (CMS/HCC)- [...] Primary Essential hypertension (CMS/HCC) Unspecified essential hypertension KRAINE (obstructive sleep apnea) Obstructive sleep apnea (adult) (pediatric) Class 3 severe obesity due to excess calories with serious comorbidity and body mass index (BMI) of 50.0 to 59.9 in adult Uncontrolled type 2 diabetes mellitus with hyperglycemia, with long-term current use of insulin (CMS/HCC) [facility] History of thyroid cancer- Primary Personal history of malignant neoplasm of thyroid [facility] History of thyroid cancer- Primary Personal history of malignant neoplasm of thyroid [facility] Diagnosis Essential hypertension- Primary Unspecified essential hypertension BMI 45.0-49.9, adult ([facility]) Uncontrolled type 2 diabetes mellitus with hyperglycemia, with long-term current use of insulin (HCC) Anxiety and depression Essential hypertension- Primary Unspecified essential hypertension Bilateral lower extremity edema Vitamin D deficiency Mixed hyperlipidemia Mixed hyperlipidemia History of rectal polyps Uncontrolled type 2 diabetes mellitus with hyperglycemia, with long-term current use of insulin ([facility]) Anxiety and depression Allergic rhinitis, unspecified seasonality, unspecified trigger Essential hypertension- Primary Unspecified essential hypertension Malignant neoplasm of thyroid gland (HCC) Malignant neoplasm of thyroid gland Pain of left hip Lumbar back pain with radiculopathy affecting left lower extremity Bilateral lower extremity edema Uncontrolled type 2 diabetes mellitus with hyperglycemia, with long-term current use of insulin (HCC) Class 3 severe obesity due to excess calories with serious comorbidity and body mass index (BMI) of 50.0 to 59.9 in adult ([facility]) Essential hypertension- Primary Unspecified essential hypertension KARINE (obstructive sleep apnea) Obstructive sleep apnea (adult) (pediatric) Arthritis of knee, right Bilateral lower extremity edema Class 3 severe obesity due to excess calories with serious comorbidity and body mass index (BMI) of 50.0 to 59.9 in adult ([facility]-HCC) Malignant neoplasm of thyroid gland (HCC) Malignant neoplasm of thyroid gland Papillary thyroid carcinoma (HCC) Anxiety and depression Hidradenitis suppurativa of multiple sites Essential hypertension- Primary Unspecified essential hypertension KARINE (obstructive sleep apnea) Obstructive sleep apnea (adult) (pediatric) Bilateral lower extremity edema Vitamin D deficiency Uncontrolled type 2 diabetes mellitus with hyperglycemia, with long-term current use of insulin ([facility]) Class 3 severe obesity due to excess calories with serious comorbidity and body mass index (BMI) of 50.0 to 59.9 in adult ([facility] Anxiety and depression Allergic rhinitis, unspecified seasonality, [...] (BMI) of 50.0 to 59.9 in adult ([facility] Papillary thyroid carcinoma (HCC) Uncontrolled type 2 diabetes mellitus with hyperglycemia, with long-term current use of insulin ([facility]) Mixed hyperlipidemia Mixed hyperlipidemia Pap smear for cervical cancer screening Screening for malignant neoplasm of the cervix Chest pain of unknown etiology- Primary Essential hypertension Unspecified essential hypertension KARINE (obstructive sleep apnea) Obstructive sleep apnea (adult) (pediatric) Class 3 severe obesity due to excess calories with serious comorbidity and body mass index (BMI) of 50.0 to 59.9 in adult ([facility] Uncontrolled type 2 diabetes mellitus with hyperglycemia, with long-term current use of insulin ([facility]) Essential hypertension Unspecified essential hypertension documented in this encounter [facility]* Diagnosis Essential hypertension- Primary Unspecified essential hypertension BMI 45.0-49.9, adult ([facility] Uncontrolled type 2 diabetes mellitus with hyperglycemia, with long-term current use of insulin ([facility]) Anxiety and depression Essential hypertension- Primary Unspecified essential hypertension Bilateral lower extremity edema Vitamin D deficiency Mixed hyperlipidemia Mixed hyperlipidemia History of rectal polyps Uncontrolled type 2 diabetes mellitus with hyperglycemia, with long-term current use of insulin ([facility]) Anxiety and depression Allergic rhinitis, unspecified seasonality, unspecified trigger Essential hypertension- Primary Unspecified essential hypertension Malignant neoplasm of thyroid gland (HCC) Malignant neoplasm of thyroid gland Pain of left hip Lumbar back pain with radiculopathy affecting left lower extremity Bilateral lower extremity edema Uncontrolled type 2 diabetes mellitus with hyperglycemia, with long-term current use of insulin ([facility]) Class 3 severe obesity due to excess calories with serious comorbidity and body mass index (BMI) of 50.0 to 59.9 in adult ([facility] Essential hypertension- Primary Unspecified essential hypertension KARINE (obstructive sleep apnea) Obstructive sleep apnea (adult) (pediatric) Arthritis of knee, right Bilateral lower extremity edema Class 3 severe obesity due to excess calories with serious comorbidity and body mass index (BMI) of 50.0 to 59.9 in adult ([facility] Malignant neoplasm of thyroid gland (HCC) Malignant neoplasm of thyroid gland Papillary thyroid carcinoma (HCC) Anxiety and depression Hidradenitis suppurativa of multiple sites Essential hypertension- Primary Unspecified essential hypertension KARINE (obstructive sleep apnea) Obstructive sleep apnea (adult) (pediatric) Bilateral lower extremity edema Vitamin D deficiency Uncontrolled type 2 diabetes mellitus with hyperglycemia, with long-term current use of insulin ([facility]) Class 3 severe obesity due to excess calories with serious comorbidity and body mass index (BMI) of 50.0 to 59.9 in adult ([facility] Anxiety and depression Allergic rhinitis, unspecified seasonality, [...] (BMI) of 50.0 to 59.9 in adult ([facility]) Papillary thyroid carcinoma (HCC) Uncontrolled type 2 [...] (BMI) of 50.0 to 59.9 in adult ([facility] Uncontrolled type 2 diabetes mellitus with hyperglycemia, with long-term current use of insulin (HCC) Uncontrolled type 2 diabetes mellitus with hyperglycemia, with long-term current use of insulin (HCC) documented in this encounter [facility]* Diagnosis Essential hypertension- Primary Unspecified essential hypertension BMI 45.0-49.9, adult ([facility] Uncontrolled type 2 diabetes mellitus with hyperglycemia, with long-term current use of insulin ([facility]) Anxiety and depression Essential hypertension- Primary Unspecified essential hypertension Bilateral lower extremity edema Vitamin D deficiency Mixed hyperlipidemia Mixed hyperlipidemia History of rectal polyps Uncontrolled type 2 diabetes mellitus with hyperglycemia, with long-term current use of insulin (HCC) Anxiety and depression Allergic rhinitis, unspecified seasonality, unspecified trigger Essential hypertension- Primary Unspecified essential hypertension Malignant neoplasm of thyroid gland (HCC) Malignant neoplasm of thyroid gland Pain of left hip Lumbar back pain with radiculopathy affecting left lower extremity Bilateral lower extremity edema Uncontrolled type 2 diabetes mellitus with hyperglycemia, with long-term current use of insulin ([facility]) Class 3 severe obesity due to excess calories with serious comorbidity and body mass index (BMI) of 50.0 to 59.9 in adult ([facility] Essential hypertension- Primary Unspecified essential hypertension KARINE (obstructive sleep apnea) Obstructive sleep apnea (adult) (pediatric) Arthritis of knee, right Bilateral lower extremity edema Class 3 severe obesity due to excess calories with serious comorbidity and body mass index (BMI) of 50.0 to 59.9 in adult ([facility] Malignant neoplasm of thyroid gland (HCC) Malignant neoplasm of thyroid gland Papillary thyroid carcinoma (HCC) Anxiety and depression Hidradenitis suppurativa of multiple sites Essential hypertension- Primary Unspecified essential hypertension KARINE (obstructive sleep apnea) Obstructive sleep apnea (adult) (pediatric) Bilateral lower extremity edema Vitamin D deficiency Uncontrolled type 2 diabetes mellitus with hyperglycemia, with long-term current use of insulin ([facility]) Class 3 severe obesity due to excess calories with serious comorbidity and body mass index (BMI) of 50.0 to 59.9 in adult ([facility] Anxiety and depression Allergic rhinitis, unspecified seasonality, [...] (BMI) of 50.0 to 59.9 in adult ([facility] Papillary thyroid carcinoma (HCC) Uncontrolled type 2 diabetes mellitus with hyperglycemia, with long-term current use of insulin ([facility]) Mixed hyperlipidemia Mixed hyperlipidemia Pap smear for cervical cancer screening Screening for malignant neoplasm of the cervix Chest pain of unknown etiology- Primary Essential hypertension Unspecified essential hypertension KARINE (obstructive sleep apnea) Obstructive sleep apnea (adult) (pediatric) Class 3 severe obesity due to excess calories with serious comorbidity and body mass index (BMI) of 50.0 to 59.9 in adult ([facility] Uncontrolled type 2 diabetes mellitus with hyperglycemia, with long-term current use of insulin ([facility]) Essential hypertension Unspecified essential hypertension Bilateral lower extremity edema Uncontrolled type 2 diabetes mellitus with hyperglycemia, with long-term current use of insulin ([facility]) Chronic pain syndrome Anxiety and depression documented [facility]* Diagnosis Essential hypertension- Primary Unspecified essential hypertension BMI 45.0-49.9, adult ([facility] Uncontrolled type 2 diabetes mellitus with hyperglycemia, with long-term current use of insulin ([facility]) Anxiety and depression Essential hypertension- Primary Unspecified essential hypertension Bilateral lower extremity edema Vitamin D deficiency Mixed hyperlipidemia Mixed hyperlipidemia History of rectal polyps Uncontrolled type 2 diabetes mellitus with hyperglycemia, with long-term current use of insulin ([facility]) Anxiety and depression Allergic rhinitis, unspecified seasonality, unspecified trigger Essential hypertension- Primary Unspecified essential hypertension Malignant neoplasm of thyroid gland (HCC) Malignant neoplasm of thyroid gland Pain of left hip Lumbar back pain with radiculopathy affecting left lower extremity Bilateral lower extremity edema Uncontrolled type 2 diabetes mellitus with hyperglycemia, with long-term current use of insulin ([facility]) Class 3 severe obesity due to excess calories with serious comorbidity and body mass index (BMI) of 50.0 to 59.9 in adult ([facility] Essential hypertension- Primary Unspecified essential hypertension KARINE (obstructive sleep apnea) Obstructive sleep apnea (adult) (pediatric) Arthritis of knee, right Bilateral lower extremity edema Class 3 severe obesity due to excess calories with serious comorbidity and body mass index (BMI) of 50.0 to 59.9 in adult ([facility] Malignant neoplasm of thyroid gland (HCC) Malignant neoplasm of thyroid gland Papillary thyroid carcinoma (HCC) Anxiety and depression Hidradenitis suppurativa of multiple sites Essential hypertension- Primary Unspecified essential hypertension KARINE (obstructive sleep apnea) Obstructive sleep apnea (adult) (pediatric) Bilateral lower extremity edema Vitamin D deficiency Uncontrolled type 2 diabetes mellitus with hyperglycemia, with long-term current use of insulin ([facility]) Class 3 severe obesity due to excess calories with serious comorbidity and body mass index (BMI) of 50.0 to 59.9 in adult ([facility] Anxiety and depression Allergic rhinitis, unspecified seasonality, [...] (BMI) of 50.0 to 59.9 in adult ([facility] Papillary thyroid carcinoma (HCC) Uncontrolled type 2 diabetes mellitus with hyperglycemia, with long-term current use of insulin ([facility]) Mixed hyperlipidemia Mixed hyperlipidemia Pap smear for cervical cancer screening Screening for malignant neoplasm of the cervix Chest pain of unknown etiology- Primary Essential hypertension Unspecified essential hypertension KARINE (obstructive sleep apnea) Obstructive sleep apnea (adult) (pediatric) Class 3 severe obesity due to excess calories with serious comorbidity and body mass index (BMI) of 50.0 to 59.9 in adult ([facility] Uncontrolled type 2 diabetes mellitus with hyperglycemia, with long-term current use of insulin ([facility]) Mixed hyperlipidemia Mixed hyperlipidemia Other chronic pain Allergic rhinitis, unspecified seasonality, unspecified trigger documented in this encounter [facility]* Diagnosis Essential hypertension- Primary Unspecified essential hypertension BMI 45.0-49.9, adult ([facility] Uncontrolled type 2 diabetes mellitus with hyperglycemia, with long-term current use of insulin ([facility]) Anxiety and depression Essential hypertension- Primary Unspecified essential hypertension Bilateral lower extremity edema Vitamin D deficiency Mixed hyperlipidemia Mixed hyperlipidemia History of rectal polyps Uncontrolled type 2 diabetes mellitus with hyperglycemia, with long-term current use of insulin ([facility]) Anxiety and depression Allergic rhinitis, unspecified seasonality, unspecified trigger Essential hypertension- Primary Unspecified essential hypertension Malignant neoplasm of thyroid gland (HCC) Malignant neoplasm of thyroid gland Pain of left hip Lumbar back pain with radiculopathy affecting left lower extremity Bilateral lower extremity edema Uncontrolled type 2 diabetes mellitus with hyperglycemia, with long-term current use of insulin ([facility]) Class 3 severe obesity due to excess calories with serious comorbidity and body mass index (BMI) of 50.0 to 59.9 in adult ([facility] Essential hypertension- Primary Unspecified essential hypertension KARINE (obstructive sleep apnea) Obstructive sleep apnea (adult) (pediatric) Arthritis of knee, right Bilateral lower extremity edema Class 3 severe obesity due to excess calories with serious comorbidity and body mass index (BMI) of 50.0 to 59.9 in adult ([facility] Malignant neoplasm of thyroid gland (HCC) Malignant neoplasm of thyroid gland Papillary thyroid carcinoma ([facility]) Anxiety and depression Hidradenitis suppurativa of multiple sites Essential hypertension- Primary Unspecified essential hypertension KARINE (obstructive sleep apnea) Obstructive sleep apnea (adult) (pediatric) Bilateral lower extremity edema Vitamin D deficiency Uncontrolled type 2 diabetes mellitus with hyperglycemia, with long-term current use of insulin ([facility]) Class 3 severe obesity due to excess calories with serious comorbidity and body mass index (BMI) of 50.0 to 59.9 in adult ([facility] Anxiety and depression Allergic rhinitis, unspecified seasonality, [...] (BMI) of 50.0 to 59.9 in adult ([facility] Papillary thyroid carcinoma (HCC) Uncontrolled type 2 diabetes mellitus with hyperglycemia, with long-term current use of insulin ([facility]) Mixed hyperlipidemia Mixed hyperlipidemia Pap smear for cervical cancer screening Screening for malignant neoplasm of the cervix Chest pain of unknown etiology- Primary Essential hypertension Unspecified essential hypertension KARINE (obstructive sleep apnea) Obstructive sleep apnea (adult) (pediatric) Class 3 severe obesity due to excess calories with serious comorbidity and body mass index (BMI) of 50.0 to 59.9 in adult ([facility] Uncontrolled type 2 diabetes mellitus with hyperglycemia, with long-term current use of insulin ([facility]) Abnormal stress test- Primary Other nonspecific abnormal cardiovascular system function study documented in this encounter [facility] HealthcareEvaluation note* Diagnosis Essential hypertension- Primary Unspecified essential hypertension BMI 45.0-49.9, adult [place] Uncontrolled type 2 diabetes mellitus with hyperglycemia, with long-term current use of insulin ([facility]) Anxiety and depression Essential hypertension- Primary Unspecified essential hypertension Bilateral lower extremity edema Vitamin D deficiency Mixed hyperlipidemia Mixed hyperlipidemia History of rectal polyps Uncontrolled type 2 diabetes mellitus with hyperglycemia, with long-term current use of insulin ([facility]) Anxiety and depression Allergic rhinitis, unspecified seasonality, unspecified trigger Essential hypertension- Primary Unspecified essential hypertension Malignant neoplasm of thyroid gland (HCC) Malignant neoplasm of thyroid gland Pain of left hip Lumbar back pain with radiculopathy affecting left lower extremity Bilateral lower extremity edema Uncontrolled type 2 diabetes mellitus with hyperglycemia, with long-term current use of insulin ([facility]) Class 3 severe obesity due to excess calories with serious comorbidity and body mass index (BMI) of 50.0 to 59.9 in adult ([facility] Essential hypertension- Primary Unspecified essential hypertension KARINE (obstructive sleep apnea) Obstructive sleep apnea (adult) (pediatric) Arthritis of knee, right Bilateral lower extremity edema Class 3 severe obesity due to excess calories with serious comorbidity and body mass index (BMI) of 50.0 to 59.9 in adult ([facility]) Malignant neoplasm of thyroid gland (HCC) Malignant neoplasm of thyroid gland Papillary thyroid carcinoma (HCC) Anxiety and depression Hidradenitis suppurativa of multiple sites Essential hypertension- Primary Unspecified essential hypertension KARINE (obstructive sleep apnea) Obstructive sleep apnea (adult) (pediatric) Bilateral lower extremity edema Vitamin D deficiency Uncontrolled type 2 diabetes mellitus with hyperglycemia, with long-term current use of insulin (HCC) Class 3 severe obesity due to excess calories with serious comorbidity and body mass index (BMI) of 50.0 to 59.9 in adult ([facility]) Anxiety and depression Allergic rhinitis, [...] in adult ([facility]) Papillary thyroid carcinoma (HCC) Uncontrolled type 2 [...] in adult ([facility]) Uncontrolled type 2 diabetes mellitus with hyperglycemia, with long-term current use of insulin (HCC) Hot flashes- Primary documented in this encounter [facility] HealthcareInstructionsNot on filedocumented in [facility] encounter[facility] SystemInstructionsNot on filedocumented in this encounterC[facility] Purpose Family History No Family [...] this informatio n is protected by the [facility] Confidentiality of Alcohol and Drug Abuse Patient Records regulations: The Federal rules restrict any use of the information to criminally investigate or prosecute any alcohol or drug abuse patient.[facility] Center[facility] the event this information is protected by the Federal Confidentiality of Alcohol and Drug Abuse Patient Records regulations: The Federal rules restrict any use of the information to criminally investigate or prosecute any alcohol or drug abuse patient.[facility] CenterIn the event this information is protected by the Federal Confidentiality of Alcohol and Drug Abuse Patient Records regulations: The Federal rules restrict any use of the information to criminally investigate or prosecute any alcohol or drug abuse patient.[facility] CenterIn the event this information is protected by the Federal Confidentiality of Alcohol and Drug Abuse Patient Records regulations: The Federal rules restrict any use of the information to criminally investigate or prosecute any alcohol or drug abuse patient.[facility] CenterIn the event this information is protected by the Federal Confidentiality of Alcohol and Drug Abuse Patient Records regulations: The Federal rules restrict any use of the information to criminally investigate or prosecute any alcohol or drug abuse patient.[facility] CenterIn the event this information is protected by the Federal Confidentiality of Alcohol and Drug Abuse Patient Records regulations: The Federal rules restrict any use of the information to criminally investigate or prosecute any alcohol or drug abuse patient.[facility] CenterIn the event this information is protected by the Federal Confidentiality of Alcohol and Drug Abuse Patient Records regulations: The Federal rules restrict any use of the information to criminally investigate or prosecute any alcohol or drug abuse patient.[facility] CenterIn the event this information is protected by the Federal Confidentiality of Alcohol and Drug Abuse Patient Records regulations: The Federal rules restrict any use of the information to criminally investigate or prosecute any alcohol or drug abuse patient.[facility] CenterIn the event this information is protected by the Federal Confidentiality of Alcohol and Drug Abuse Patient Records regulations: The Federal rules restrict any use of the information to criminally investigate or prosecute any alcohol or drug abuse patient.[facility] CenterIn the event this information is protected by the Federal Confidentiality of Alcohol and Drug Abuse Patient Records regulations: The Federal rules restrict any use of the information to criminally investigate or prosecute any alcohol or drug abuse patient.[facility] CenterIn the event this information is protected by the Federal Confidentiality of Alcohol and Drug Abuse Patient Records regulations: The Federal rules restrict any use of the information to criminally investigate or prosecute any alcohol or drug abuse patient.[facility] CenterIn the event this information is protected by the Federal Confidentiality of Alcohol and Drug Abuse Patient Records regulations: The Federal rules restrict any use of the information to criminally investigate or prosecute any alcohol or drug abuse patient.[facility] CenterIn the event this information is protected by the Federal Confidentiality of Alcohol and Drug Abuse Patient Records regulations: The Federal rules restrict any use of the information to criminally investigate or prosecute any alcohol or drug abuse patient.[facility] CenterIn the event this information is protected by the Federal Confidentiality of Alcohol and Drug Abuse Patient Records regulations: The Federal rules restrict any use of the information to criminally investigate or prosecute any alcohol or drug abuse patient.[facility] CenterIn the event this information is protected by the Federal Confidentiality of Alcohol and Drug Abuse Patient Records regulations: The Federal rules restrict any use of the information to criminally investigate or prosecute any alcohol or drug abuse patient.[facility] CenterIn the event this information is protected by the Federal Confidentiality of Alcohol and Drug Abuse Patient Records regulations: The Federal rules restrict any use of the information to criminally investigate or prosecute any alcohol or drug abuse patient.[facility] CenterIn the event this information is protected by the Federal Confidentiality of Alcohol and Drug Abuse Patient Records regulations: The Federal rules restrict any use of the information to criminally investigate or prosecute any alcohol or drug abuse patient.[facility] CenterIn the event this information is protected by the Federal Confidentiality of Alcohol and Drug Abuse Patient Records regulations: The Federal rules restrict any use of the information to criminally investigate or prosecute any alcohol or drug abuse patient.[facility] CenterIn the event this information is protected by the Federal Confidentiality of Alcohol and Drug Abuse Patient Records regulations: The Federal rules restrict any use of the information to criminally investigate or prosecute any alcohol or drug abuse patient.[facility] CenterIn the event this information is protected by the Federal Confidentiality of Alcohol and Drug Abuse Patient Records regulations: The Federal rules restrict any use of the information to criminally investigate or prosecute any alcohol or drug abuse patient.[facility] CenterIn the event this information is protected by the Federal Confidentiality of Alcohol and Drug Abuse Patient Records regulations: The Federal rules restrict any use of the information to criminally investigate or prosecute any alcohol or drug abuse patient.[facility] CenterIn the event this information is protected by the Federal Confidentiality of Alcohol and Drug Abuse Patient Records regulations: The Federal rules restrict any use of the information to criminally investigate or prosecute any alcohol or drug abuse patient.[facility] CenterIn the event this information is protected by the Federal Confidentiality of Alcohol and Drug Abuse Patient Records regulations: The Federal rules restrict any use of the information to criminally investigate or prosecute any alcohol or drug abuse patient.[facility] CenterIn the event this information is protected by the Federal Confidentiality of Alcohol and Drug Abuse Patient Records regulations: The Federal rules restrict any use of the information to criminally investigate or prosecute any alcohol or drug abuse patient.[facility] CenterIn the event this information is protected by the Federal Confidentiality of Alcohol and Drug Abuse Patient Records regulations: The Federal rules restrict any use of the information to criminally investigate or prosecute any alcohol or drug abuse patient.[facility] CenterIn the event this information is protected by the Federal Confidentiality of Alcohol and Drug Abuse Patient Records regulations: The Federal rules restrict any use of the information to criminally investigate or prosecute any alcohol or drug abuse patient.[facility] CenterIn the event this information is protected by the Federal Confidentiality of Alcohol and Drug Abuse Patient Records regulations: The Federal rules restrict any use of the information to criminally investigate or prosecute any alcohol or drug abuse patient.[facility] Reason for Visit (unrecogniz ed section and content) Reason Comments Established Patient Specialty Diagnoses / Procedures Referred By Contac t Referred To Contact Radiation Oncology / RADIATION ONCOLOGY Diagnoses Follow-up examination 4 Month Follow UP Procedures PHYS/QHP TELEPHONE EVALUATION 5-10 MIN PROVIDER SPECIALTY PHONE CALL Zion Pringle MD [address] [place] [address] [place] [address] Zion Pringle MD [address] [place] [address] [place] [address] Referral ID Status Reason Start Date Expiration Date Visits Re quested Visits Authorized [id number] Closed 02/15/2024 06/05/2024 1 1 Reason Comments Follow Up Specialty Diagnoses / Procedures Referred By Contac t Referred To Contact Radiation Oncology / RADIATION ONCOLOGY Diagnoses phone visit after labs [phone] labs drawn at [facility] Procedures PROVIDER SPECIALTY PHONE CALL Zion Pringle MD [address] [place] [address] [place] [address] Zion Pringle MD [address] [place] [address] [place] [address] Referral ID Status Reason Start Date Expiration Date V isits Requested Visits Authorized [id number] Pending Review 09/29/2021 12/28/2021 99 99 Reason [...] Care Teams (unrecognized sec tion and content) 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 Relationship Specialty Start Date End Date Katalina Colbert CNP PCP - General Family Practice 11/26/14 Zion Pringle MD [address] [place] [address] [place] [address] Radiation Oncology 05/28/20 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 Relationship Specialty Start Date End Date Katalina Colbert CNP PCP - General Family Medicine 11/26/14 Zion Pringle MD [address] [place] [address] [place] [address] Radiation Oncology 05/28/20 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 Relationship Specialty Start Date End Date Katalina Colbert CNP PCP - General Family Medicine 11/26/14 Zion Pringle MD [address] [place] [address] [place] [address] Radiation Oncology 05/28/20 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 Relationship Specialty Start Date End Date Katalina Colbert CNP PCP - General Family Medicine 11/26/14 Zion Pringle MD [address] [place] [address] [place] [address] Radiation Oncology 05/28/20 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 Relationship Specialty Start Date End Date Katalina Colbert CNP PCP - General Family Medicine 11/26/14 Zion Pringle MD [address] [place] [address] Radiation Oncology 05/28/20 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 Relationship Specialty Start Date End Date [facility] PCP - General Family Medicine 11/26/14 Zion Pringle MD [address] [place] [address] Radiation Oncology 05/28/20 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 Relationship Specialty Start Date End Date [facility] PCP - General Family Medicine 11/26/14 Zion Pringle MD [address] [place] [address] Radiation Oncology 05/28/20 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 Relationship Specialty Start Date End Date [facility] ENTRY CL[facility] PCP - General Family Medicine 11/26/14 Zion Pringle MD [address] [facility] [place] [address] Radiation Oncology 05/28/20 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 Relationship Specialty Start Date End Date [facility] CL[facility] PCP - General Family Medicine 11/26/14 Zion Pringle MD [address] [facility] [place] [address] Radiation Oncology 05/28/20 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 Relationship Specialty Start Date End Date Katalina Colbert CNP PCP - General Family Medicine 11/26/14 Zion Pringle MD [address] [place] [address] [place] [address] Radiation Oncology 05/28/20 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 Relationship Specialty Start Date End Date Kervin Gunter MD [address] [place] [address] PCP - General Family Medicine 06/01/23 Katalina Colbert NP [address] [place] [address] Nurse Practitioner Family Medicine 03/06/23 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 Relationship Specialty Start Date End Date Katalina Colbert CNP PCP - General Family Medicine 11/26/14 Zion Pringle MD [address] [place] [address] [place] [address] Radiation Oncology 05/28/20 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 Relationship Specialty Start Date End Date Kervin Gunter MD [address] [place] [address] PCP - General Family Medicine 06/01/23 Katalina Colbert NP [address] [place] [address] Nurse Practitioner Family Medicine 03/06/23 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 Relationship Specialty Start Date End Date Kervin Gunter MD [address] [place] [address] PCP - General Family Medicine 06/01/23 Katalina Colbert, NETTIE [address] [place] [address] Nurse Practitioner Family Medicine 03/06/23 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 Relationship Specialty Start Date End Date Kervin Gunter MD [address] [place] [address] PCP - General Family Medicine 06/01/23 Katalina Colbert NP [address] [place] [address] Nurse Practitioner Family Medicine 03/06/23 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 Relationship Specialty Start Date End Date Katalina Colbert, ENTRY CLERK PCP - General Family Medicine 11/26/14 Zion Pringle MD [address] [place] [address] [place] [address] Radiation Oncology 05/28/20 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 Relationship Specialty Start Date End Date Katalina Colbert ENTRY CLERK PCP - General Family Medicine 11/26/14 Zion Pringle MD [address] [place] [address] [place] [address] Radiation Oncology 05/28/20 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 Relationship Specialty Start Date End Date Kervin Gunter MD [address] [place] [address] PCP - General Family Medicine 06/01/23 Katalina Colbert NP [address] [place] [address] Nurse Practitioner Family Medicine 03/06/23 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 Relationship Specialty Start Date End Date Kervin Gunter MD [address] [place] [address] PCP - General Family Medicine 06/01/23 Katalina Colbert NP [address] [place] [address] Nurse Practitioner Family Medicine 03/06/23 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 Relationship Specialty Start Date End Date Kervin Gunter MD [address] [place] [address] PCP - General Family Medicine 06/01/23 Katalina Colbert NP [address] [place] [address] Nurse Practitioner Family Medicine 03/06/23 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 Relationship Specialty Start Date End Date Kervin Gunter MD [address] [place] [address] PCP - General Family Medicine 06/01/23 Katalina Colbert NP [address] [place] [address] Nurse Practitioner Family Medicine 03/06/23 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 Relationship Specialty Start Date End Date Kervin Gunter MD [address] [place] [address] PCP - General Family Medicine 06/01/23 Katalina Colbert NP [address] [place] [address] Nurse Practitioner Family Medicine 03/06/23 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 Relationship Specialty Start Date End Date Kervin Gunter MD [address] [place] [address] PCP - General Family Medicine 06/01/23 Katalina Colbert NP [address] [place] [address] Nurse Practitioner Family Medicine 03/06/23 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 Relationship Specialty Start Date End Date Kervin Gunter MD [address] [place] [address] PCP - General Family Medicine 06/01/23 Katalina Colbert NP [address] [place] [address] Nurse Practitioner Family Medicine 03/06/23 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 Relationship Specialty Start Date End Date Kervin Gunter MD [address] [place] [address] PCP - General Family Medicine 06/01/23 Katalina Colbert NP [address] [place] [address] Nurse Practitioner Family Medicine 03/06/23 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 Relationship Specialty Start Date End Date Kervin Gunter MD [address] [place] [address] PCP - General Family Medicine 06/01/23 Katalina Colbert NP [address] [place] [address] Nurse Practitioner Family Medicine 03/06/23 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 Relationship Specialty Start Date End Date Kervin Gunter MD [address] [place] [address] PCP - General Family Medicine 06/01/23 Katalina Colbert NP [address] [place] [address] Nurse Practitioner Family Medicine 03/06/23 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 Relationship Specialty Start Date End Date Kervin Gunter MD [address] [place] [address] PCP - General Family Medicine 06/01/23 Katalina Colbert NP [address] [place] [address] Nurse Practitioner Family Medicine 03/06/23 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 Relationship Specialty Start Date End Date Katalina Colbert CNP PCP - General Family Medicine 11/26/14 Zion Pringle MD Radiation Oncology 05/28/20 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 Relationship Specialty Start Date End Date Kervin Gunter MD [address] [place] [address] PCP - General Family Medicine 06/01/23 Katalina Colbert NP [address] [place] [address] Nurse Practitioner Family Medicine 03/06/23 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 Relationship Specialty Start Date End Date Kervin Gunter MD [address] [place] [address] PCP - General Family Medicine 06/01/23 Katalina Colbert NP [address] [place] [address] Nurse Practitioner Family Medicine 03/06/23 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 Relationship Specialty Start Date End Date Kervin Gunter MD [address] [place] [address] PCP - General 08/11/17 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 Relationship Specialty Start Date End Date Kervin Gunter MD [address] [place] [address] PCP - General 08/11/17 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 Relationship Specialty Start Date End Date Katalina Colbert CNP PCP - General Family Medicine 11/26/14 Zion Pringle MD [address] [place] [address] [address] [place], [place] [id number] Radiation Oncology 05/28/20 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 Relationship Specialty Start Date End Date Kervin Gunter MD [address] [place] [address] PCP - General Family Medicine 06/01/23 Katalina Colbert NP [address] [place] [address] Nurse Practitioner Family Medicine 03/06/23 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 Relationship Specialty Start Date End Date Kervin Gunter MD [address] [place] [address] PCP - General Family Medicine 06/01/23 Katalina Colbert NP [address] [place] [address] Nurse Practitioner Family Medicine 03/06/23 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 Relationship Specialty Start Date End Date Kervin Gunter MD [address] [place] [address] PCP - General Family Medicine 06/01/23 Katalina Colbert NP [address] [place] [address] Nurse Practitioner Family Medicine 03/06/23 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 Relationship Specialty Start Date End Date Kervin Gunter MD [address] [place] [address] PCP - General Family Medicine 06/01/23 Katalina Colbert NP [address] [place] [address] Nurse Practitioner Family Medicine 03/06/23 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 Relationship Specialty Start Date End Date Kervin Gunter MD [address] [place] [address] PCP - General Family Medicine 06/01/23 Katalina Colbert NP [address] [place] [address] Nurse Practitioner Family Medicine 03/06/23 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 Relationship Specialty Start Date End Date Kervin Gunter MD [address] [place] [address] PCP - General Family Medicine 06/01/23 Katalina Colbert NP [address] [place] [address] Nurse Practitioner Family Medicine 03/06/23 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 Relationship Specialty Start Date End Date Kervin Gunter MD [address] [place] [address] PCP - General Family Medicine 06/01/23 Katalina Colbert NP [address] [place] [address] Nurse Practitioner Family Medicine 03/06/23 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 Relationship Specialty Start Date End Date Kervin Gunter MD [address] [place] [address] PCP - General Family Medicine 06/01/23 Katalina Colbert NP [address] [place] [address] Nurse Practitioner Family Medicine 03/06/23 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 Relationship Specialty Start Date End Date Katalina Colbert ENTRY CLERK PCP - General Family Medicine 11/26/14 Zion Pringle MD [address] [place] [address] [place] [address] Radiation Oncology 05/28/20 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 Relationship Specialty Start Date End Date Kervin Gunter MD [address] [place] [address] PCP - General Family Medicine 06/01/23 Katalina Colbert NP [address] [place] [address] Nurse Practitioner Family Medicine 03/06/23 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 Relationship Specialty Start Date End Date Kervin Gunter MD [address] [place] [address] PCP - General Family Medicine 06/01/23 Katalina Colbert NP [address] [place] [address] Nurse Practitioner Family Medicine 03/06/23 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 Relationship Specialty Start Date End Date Kervin Gunter MD [address] [place] [address] PCP - General Family Medicine 06/01/23 Katalina Colbert NP [address] [place] [address] Nurse Practitioner Family Medicine 03/06/23 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 Relationship Specialty Start Date End Date Kervin Gunter MD [address] [place] [address] PCP - General Family Medicine 06/01/23 Katalina Colbert NP [address] [place] [address] Nurse Practitioner Family Medicine 03/06/23 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 Relationship Specialty Start Date End Date Kervin Gunter MD [address] [place] [address] PCP - General Family Medicine 06/01/23 Katalina Colbert NP [address] [place] [address] Nurse Practitioner Family Medicine 03/06/23 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 Relationship Specialty Start Date End Date Kervin Gunter MD [address] [place] [address] PCP - General Family Medicine 06/01/23 Katalina Colbert NP [address] [place] [id number] Nurse Practitioner Family Medicine 03/06/23 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 Relationship Specialty Start Date End Date Kervin Gunter MD [address] [place] [phone] PCP - General Family Medicine 06/01/23 Katalina Colbert NP [address] [place] [phone] Nurse Practitioner Family Medicine 03/06/23 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 Relationship Specialty Start Date End Date Kervin Gunter MD [address] [place] [phone] PCP - General Family Medicine 06/01/23 Katalina Colbert NP [address] [place] [phone] Nurse Practitioner Family Medicine 03/06/23 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 Relationship Specialty Start Date End Date Kervin Gunter MD [address] [place] [phone] PCP - General Family Medicine 06/01/23 Katalina Colbert NP [address] [place] [phone] Nurse Practitioner Family Medicine 03/06/23 INFORMATION SOURCE (unrecogn ized section and content) DATE CREATED AUTHOR 10/17/2022 [facility] DATE CREATED AUTHOR AUTHOR'S ORGANIZ ATION 09/14/2023 [facility] DATE CREATED AUTHOR AUTHOR'S ORGANIZ ATION 10/01/2023 [facility] DATE CREATED AUTHOR AUTHOR'S ORGANIZ ATION 12/01/2024 [facility] DATE CREATED AUTHOR AUTHOR'S ORGANIZ ATION 01/22/2025 [facility] DATE CREATED AUTHOR AUTHOR'S ORGANHOWIE ATION 01/28/2025 [facility] FOR RECORDS PERTAINING TO PATIENTS WHO ARE [...] BE BASED ON THE PRIMARY CLINICAL RECORDS. [facility]. provides no warranty or guarantee of the accuracy or completeness of information in this document.
--- NOTE | 2025-01-31 08:00 | CA_ITS ---
Patient Name: DEMETRA HUTCHINS MR#: [id number] : 1965 Exam Date: 01/31/2025 Ordering Doctor: TARIK XIONG CNP ECHOCARDIOGRAM REPORT PROCEDURE: CA ECHO DOPPLER COMPLETE INDICATIONS: HTN, Chest pain, KARINE, DMII COMPARISON: None. DESCRIPTION: COMPLETE ECHOCARDIOGRAM Real-time transthoracic echocardiography with 2D, M-mode, spectral and color flow Doppler performed. QUALITY: Technical quality was adequate. LEFT VENTRICLE: Normal chamber size. Normal left ventricular wall thickness. Systolic function appears to be at lower limits of normal, no wall motion abnormalities, left ventricular ejection fraction, (50-55%). DIASTOLIC: Grade I diastolic dysfunction. ATRIAL SEPTUM: Visually appears intact LEFT ATRIUM: Normal chamber size. RIGHT ATRIUM: Normal chamber size. RIGHT VENTRICLE: Normal chamber size. Normal right ventricular systolic function. TRICUSPID VALVE: Normal mobility and thickness. No stenosis with trace regurgitation. No evidence of pulmonary hypertension. RVSP 20 mmHg MITRAL VALVE: Normal mobility and thickness. No evidence of mitral valve stenosis. Mild mitral annular calcification. No mitral regurgitation. AORTIC VALVE: Normal trileaflet appearance. No visible sclerosis. Normal leaflet mobility. No evidence of aortic valve stenosis. No aortic regurgitation. AORTIC ROOT: Normal diameter and appearance. Ascending aorta is normal in size> PULMONIC VALVE: Normal thickness and mobility. No stenosis. No regurgitation. PERICARDIUM: No evidence of pericardial effusion. IVC: Not well visualized. PLEURA: CONCLUSION: Left ventricle systolic function at lower limit of normal without wall motion abnormalities, ejection fraction 50 to 55% Grade 1 left ventricular diastolic dysfunction Normal right ventricle size and systolic function Normal right-sided pressures, RVSP 20 mmHg No significant valvular abnormalities Mild mitral annulus calcification Adult Echocardiography Procedure Report Left Ventricle LVEDD (3.7 - 5.6 cm): 4.19 cm LVESD (2.2 - 4.0 cm): 3.49 cm LVIVS thickness (0.6 - 1.2 cm): 1.08 cm LVPW thickness (0.5 - 1.0 cm): 8.82 mm e': 7 E - e': 7.5 LVOT Max Gradient: 2 mm[Hg] LVOT Area (cm2): Peak Velocity (LVOT): 78.50 cm/s Mean Velocity (LVOT): 44.90 cm/s LVOT Diameter 2.40 cm Left Ventricular Ejection Fraction: 35.30 % Left Atrium LA Volume Index (2D A2C): 85760 mm3 Left Atrium Systolic Dimension: 4.10 cm Mitral Valve MV E to A Ratio: 0.80 MV Max Gradient: MV Mean Gradient: Mitral Valve A-Wave Peak Velocity: 69.10 cm/s Mitral Valve E-Wave Peak Velocity: 53.30 cm/s Cardiovascular Orifice Area: Right Ventricle RV Internal Diastolic Dimension: Aorta AO Root Diam: 3.20 cm Ascending Ao Diam: Aortic Valve AoV Area (Peak Kenroy): 2.67 cm2 AoV Area (VTI): 3.10 cm2 Deceleration Prowers: Pressure Half-Time: Peak Velocity(Antegrade Flow): 133.00 cm/s Peak Gradient(Antegrade Flow): 7 mm[Hg] Mean Velocity(Antegrade Flow): 85.20 cm/s Mean Gradient(Antegrade Flow): 3 mm[Hg] Velocity Time Integral: 25.10 cm Tricuspid Valve Peak Velocity (Regurgitant Flow): 205.00 cm/s Peak Velocity: 49.80 cm/s Pulmonic Valve Mean Gradient: Mean Velocity: Peak Velocity: 92.10 cm/s, 93.10 cm/s Peak Gradient: 3 mm[Hg] Right Atrium Right Atrium Systolic Pressure: 3 Dictated by: Liliam Andrews MD on 02/01/2025 at 17:53 Approved by: Liliam Andrews MD on 02/01/2025 at 18:02
== END 2025-01-31 07:47 | disposition home or self-care (01) ==
LOC: CARD 07:46
PROVIDERS: PCP Nurse Practitioner; Visit Provider Nurse Practitioner
DX: G47.33 Obstructive sleep apnea (adult) (pediatric) (principal); I10 Essential (primary) hypertension; E11.65 Type 2 diabetes mellitus 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; Z79.4 Long term (current) use of insulin; R07.9 Chest pain, unspecified
CPT/HCPCS: 93306

== ENCOUNTER 2025-02-19 09:49 | Outpatient (OUT) | payer OTHER, SELFPAY ==
--- OUTSIDE RECORDS SUMMARY | 2025-02-19 10:02 | XMS_ITS | CCD ---
Author Organization [facility] Care Team Providers Care Manufacturing Executive Name Role Phone FilemonKatalina Catina Primary Care Provider Aicholz SMART ENERGY SPECIALIST, Katalina Catina Primary Care Provider Zion Pringle MD Unavailable Aicholz SMART ENERGY SPECIALIST, Katalina Catina Primary Care Provider Zion Pringle MD Unavailable Aicholz SMART ENERGY SPECIALIST, Katalina Catina Primary Care Provider Aicholz SMART ENERGY SPECIALIST, Katalina Catina Primary Care Provider [phone] Zion Pringle MD Unavailable [phone] DR WILLY PRINGLE Consulting Unavailable AICHHOLZ, SMART ENERGY SPECIALIST KATALINA Primary Care Unavailable DR WILLY PRINGLE Attending Unavailable DR WILLY PRINGLE Admitting Unavailable JOSE ALEJANDRO MARTINA Pate Consulting Unavailable HELEN, DR GEN Donovan Attending UnavailDR GEN Hoover Admitting Unavailabl e AICHHOLZ, SMART ENERGY SPECIALIST KATALINA Primary Care Unavailable Srinivas, Deonna Consulting Unavailable DORENE Pate, YULIYA Consulting Unavailable AICHHOLZ, SMART ENERGY SPECIALIST KATALINA Consulting Unavailable AICHHOLZ, SMART ENERGY SPECIALIST KATALINA Primary Care Unavailable AICHHOLZ, SMART ENERGY SPECIALIST KATALINA Attending Unavailable AICHHOLZ, SMART ENERGY SPECIALIST KATALINA Admitting Unavailable AICHHOLZ, SMART ENERGY SPECIALIST KATALINA Consulting Unavailable AICHHOLZ, SMART ENERGY SPECIALIST KATALINA Primary Care Unavailable AICHHOLZ, SMART ENERGY SPECIALIST KATALINA Attending Unavailable AICHHOLZ, SMART ENERGY SPECIALIST KATALINA Admitting Unavailable AICHHOLZ, SMART ENERGY SPECIALIST KATALINA Consulting Unavailable AICHHOLZ, SMART ENERGY SPECIALIST KATALINA Primary Care Unavailable AICHHOLZ, SMART ENERGY SPECIALIST KATALINA Attending Unavailable AICHHOLZ, SMART ENERGY SPECIALIST KATALINA Admitting Unavailable DR JILL JEAN Consulting Unavailable ENGELER, DR WILLY Marlow Consulting Unavailable AICHHOLZ, SMART ENERGY SPECIALIST KATALINA Primary Care Unavailable PINO, DR WILLY Marlow Attending Unavailable ENGELEAnahi, DR WILLY Marlow Admitting Unavailable AICHHOLZ, SMART ENERGY SPECIALIST KATALINA Consulting Unavailable AICHHOLZ, SMART ENERGY SPECIALIST KATALINA Attending Unavailable AICHHOLZ, SMART ENERGY SPECIALIST KATALINA Admitting Unavailable PINO, DR WILLY Marlow Consulting Unavailable AICHHOLZ, SMART ENERGY SPECIALIST KATALINA Primary Care Unavailable PNIO, DR WILLY Marlow Attending Unavailable ENGELEAnahi, DR WILLY Marlow Admitting Unavailable AICHHOLZ, SMART ENERGY SPECIALIST KATALINA Consulting Unavailable AICHHOLZ, SMART ENERGY SPECIALIST KATALINA Primary Care Unavailable AICHHOLZ, SMART ENERGY SPECIALIST KATALINA Attending Unavailable AICHHOLZ, SMART ENERGY SPECIALIST KATALINA Admitting Unavailable AICHHOLZ, SMART ENERGY SPECIALIST KATALINA Consulting Unavailable AICHHOLZ, SMART ENERGY SPECIALIST KATALINA Primary Care Unavailable AICHHOLZ, SMART ENERGY SPECIALIST KATALINA Attending Unavailable AICHHOLZ, SMART ENERGY SPECIALIST KATALINA Admitting Unavailable Aichholz TRACTOR TRAILER MOVING VAN DRIVER, Katalina Unavailable Kervin Gunter MD Primary Care Provider [phone] RAMONITA PHILLIPS Attending Unavailable KERVIN GUNTER Referring Unavailable KERVIN GUNTER Primary Care Unavailable JUSTINS LATOSHA Sally Admitting Unavailable LATOSHA CORBETT Attending Unavailable JUSTINS, LATOSHA E Referring Unavailable KERVIN GUNTER Primary Care Unavailable LIV AZAR Attending Unavailable KERVIN GUNTER Primary Care Unavailable JUSTINS LATOSHA E Attending Unavailable JUSTINS, LATOSHA E Referring Unavailable KERVIN GUNTER Primary Care Unavailable Aichholz SMART ENERGY SPECIALIST, Katalina Dominique Primary Care Provider Aichholz TRACTOR TRAILER MOVING VAN DRIVER, Katalina Unavailable Kervin Gunter MD Primary Care Provider Zion Pringle MD Unavailable [phone] Kervin Gunter MD Primary Care Provider [phone] Zion PRINGLE Referring Unavailable AICHHOLZ, KATALINA CATINA Primary Care Unavailable Zion PRINGLE Attending Unavailable Zion PRINGLE Referring Unavailable Zion PRINGLE Attending Unavailable AICHOLZ, KATALINA CATINA Primary Care Unavailable Zion PRINGLE Referring Unavailable Zion PRINGLE Attending Unavailable KATALINA COLBERT Primary Care Unavailable Zion PRINGLE Referring Unavailable Zion PRINGLE Attending Unavailable KATALINA COLBERT Primary Care Unavailable SARAH KHAN Attending Unavailable KATALINA COLBERT Attending Unavailable KATALINA COLBERT Attending Unavailable RITA PULLIAM Attending Unavailable RITA PULLIAM Attending Unavailable KATALINA COLBERT Attending Unavailable SARAH KHAN Attending Unavailable KATALINA COLBERT Attending Unavailable WILLY HUA Attending Unavailable Allergies Allergy Classification Reported Allergen(s) Allergy Type Date of Onset Reaction(s) Facility (20 sources) Adhesive agent; Translations: [ADHESIVE] Drug Allergy 2 Rash [facility] (1 source) Desonide Drug Allergy [facility] (4 sources) Latex; Translations: [LATEX] Drug allergy (disorder) 9 [facility] Repository (20 sources) Latex Allergy to substance 9 Other, [facility] Work Phone: (20 sources) Wound Dressing Adhesive Drug Allergy 2 [facility] (2 sources) Latex Propensity to adverse reactions to drug 9 [facility] Medications Current Medications Medication Drug Class(es) Dates Sig (Normalized) Sig (Original) [id number] 200 actuat albuterol 0.09 mg/actuat metered dose [...] 2 diabetes mellitus with hyperglycemia, 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 (CMS/HCC) INJECT 60 UNITS SUBCUTANEOUSLY [...] hyperglycemia, unspecified whether penitentiary insulin use (HCC) INJECT 15-20-25 UNITS ACCORDING [...] 2 diabetes mellitus with hyperglycemia, 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 (HCC) Take 1 tablet by mouth once daily 90 tablet 1 01/08/2025 Active Start: 06-04-2024 take 1 tablet by lukas th once daily SITagliptin (Januvia) 100 MG tablet Indications: Type 2 diabetes mellitus with hyperglycemia, unspecified whether penitentiary insulin use (HCC) Take 1 tablet by [...] Comment on above: Take 1 tablet by [facility] every 8 hours as needed for Pain. [...] on above: Take 3 tablets by mo [facility] once daily. GLUCOSAMINE/CHONDROITI N SULF A (GLUCOSAMINE-CHONDROIT [...] 1 tablet by lukas th once daily. Tnlox-1-SRT-EPA-Fish Oil 1,200 (144-216) mg cap (7 sources) Hyspn-5-DVB-EPA- F ronaldo Oil 1,200 (144-216) mg cap [...] sources) Long-term current use of insulin; Translations: [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 (current) use of insulin] 03-08-2024 Episodic Other [...] 04-09-2024 04-09-2024 Episodic Other aftercare (1 source) residential (current) use of aspirin; Translations: [ROBOT TECHNICIAN CURRENT USE OF ASPIRIN] Onset: 06-22-2022 Episodic Other aftercare (1 source) Other penitentiary (current) drug therapy; Translations: [OTH PRISON CURRENT DRUG THERAPY] Onset: 06-22-2022 Episodic Other aftercare (1 source) residential (current) use of oral hypoglycemic drugs; Translations: [ROBOT TECHNICIAN USE ORAL HYPOGLYCEMIC DX] Onset: 06-22-2022 Episodic Other aftercare (1 source) residential (current) use of insulin; Translations: [ROBOT TECHNICIAN CURRENT USE OF INSULIN] Onset: 06-01-2022 Episodic [...] Test Name Value Interpretation Reference Range Facility Orders Onlyon 02-06-2025 Orders Only [id number] Bertha Hutchins sa 1965 F Date Provider Department [place] 02/06/2025 [id number], HISTORICAL [facility] Family History Problem Relation Age of Onset Parkinsonism Mother Coronary artery disease Mother Coronary artery disease Father Family Status - Relation Status Age at Mother Father Alive Normal [facility] XR Knee - left [address] [address] XRay Report Signed Patient: KATALINA HUTCHINS MR#: [id number] : 1965 Acct:[id number] Age/Sex: 60 / F ADM Date: 01/30/25 Loc: RAD Attending Dr: Katalina Colbert NP Ordering Physician: Katalina Colbert NP Date of Service: 01/30/25 Procedure(s): XR knee LT 4V Accession Number(s): [id number] cc: Katalina Colbert NP [place] [address] Patient Name: KATALINA HUTCHINS MRN: [id number] date: 1965 Sex: F Assigned Patient Location: [facility] Current Patient Location: CARD Accession/Order Number: [id number] Exam Date: 01/30/2025 13:30 Report Date: 01/30/2025 [...] Chandler M.D. 01/30/2025 1:58 PM Dictation Location: [place] [address] Electronically authenticated by: [id number] Y Date: 01/30/2025 13:58 Dictated By: Annia Chandler M.D. Signed By: 01/30/251399 DD/ 135 TD/TT: Food Chemist: [facility] Gilles Carrillo MD - 01/30/[address] [address] XRay Report Signed Patient: KATALINA HUTCHINS MR#: [id number] : 1965 Acct:[id number] Age/Sex: 60 / F ADM Date: 01/30/25 Loc: RAD Attending Dr: Katalina Colbert TRACTOR TRAILER MOVING VAN DRIVER Ordering Physician: Katalina Colbert NP Date of Service: 01/30/25 Procedure(s): XR knee LT 4V Accession Number(s): [id number] cc: Katalina Colbert NP [place] [address] Patient Name: KATALINA HUTCHINS MRN: [facility]:[id number] date: 1965 Sex: F Assigned Patient Location: [facility] Current Patient Location: CARD Accession/Order Number: [id number] Exam Date: 01/30/2025 13:30 Report Date: 01/30/2025 [...] Chandler M.D. 01/30/2025 1:58 PM Dictation Location: [place] [address] Electronically authenticated by: [id number] Y Date: 01/30/2025 13:58 Dictated By: Annia Chandler M.D. Signed By: 01/30/251399 DD/ 135 TD/TT: Food Chemist: [facility] Radiology Study observation (narrative) [facility] XR Knee - left 4 ViewsOrdere d By: Radiologist Radiology on 01-30-2025 [facility] Work Phone: Office Visiton 01-14-2025 Follow-up visit [id number] Bertha Hutchins sa Luis 1965 F Date Provider Department Center 01/14/2025 Ivonne-WILLY HUA [facility] Family History Problem Relation Age of Onset Parkinsonism Mother Coronary artery disease Mother Coronary artery disease Father Family Status - Relation Status Age at Mother Father Alive Level of Service:05749 SD OFFICE/OUTPATIENT [facility] MDM 60 MINUTES Normal [facility] Orders Onlyon 01-14-2025 Orders Only [id number] Bertha Hutchins sa Luis 1965 F Date Provider Department Center 01/14/2025 [id number], HISTORICAL [facility] Family History Problem Relation Age of Onset Parkinsonism Mother Coronary artery disease Mother Coronary artery disease Father Family Status - Relation Status Age at Mother Father Alive Normal [facility] NM LACEY PERF SPECT REST STRon 01-11-2025 [place] [address] Nuclear Medicine Report Signed Patient: KATALINA HUTCHINS MR#: [id number] : 1965 Acct:[id number] Age/Sex: 59 / F ADM Date: 01/01/25 Loc: CARD Attending Dr: Katalina Colbert NP Ordering Physician: Katalina Colbert NP Date of Service: 01/01/25 Procedure(s): NM lacey perf SPECT rest str Accession Number(s): [id number] cc: Katalina Colbert NP Patient Name: KATALINA HUTCHINS MR#: [id number] : 1965 Exam Date: 01/01/2025 Ordering Doctor: [...] the study was pending per attending physician [facility] . For more details please see separate [...] Signed By: 01/11/25 1744 DD/ 42 TD/TT: Food Chemist: [facility] Radiology, Radiologi MD [facility] - 01/11/2025 [place] [address] Nuclear Medicine Report Signed Patient: KATALINA HUTCHINS MR#: [id number] : 1965 Acct:[id number] Age/Sex: 59 / F ADM Date: 01/01/25 Loc: CARD Attending Dr: Katalina Colbert NP Ordering Physician: Katalina Colbert NP Date of Service: 01/01/25 Procedure(s): NM lacey perf SPECT rest str Accession Number(s): [id number] cc: Katalina Colbert NP Patient Name: KATALINA HUTCHINS MR#: [id number] : 1965 Exam Date: 01/01/2025 Ordering Doctor: TARIK COLBERT [facility] RADIOLOGY REPORT PROCEDURE: NM LACEY PERF SPECT [...] the study was pending per attending physician [facility] . For more details please see separate [...] M.D. Signed By: 01/11/251743 DD/ 42 TD/TT: Food Chemist: [facility] Radiology Study observation (narrative) [facility] NM LACEY PERF SPECT REST STROr dered By: Radiologist Radiology on 01-11-2025 [facility] Work Phone: Ness 11-22-2024 GILDA Telephone (Techpoint[employer]) KATALINA HUTCHINS ([id number]) 1965 F Date Time Provider Department 11/22/24 [...] RN - Fully Assessed Reason for Visit: Results [95] Future Appointment [256] Primary Visit Diagnosis:History of thyroid cancer [Z85.850] Order(s):T4/THYROXINE [SQT4] Order #: [id number] FUTURE THYROID STIMULATING HORMONE [SQTSH] Order #: [id number] FUTURE THYROGLOBULIN, SERUM WITH REFLEX TO IA OR LC-MS/MS [SQTHYRORF] Order #: [id number] FUTURE Prescriptions as of 11/26/2024 - levothyroxine [...] Encounter Status:Closed by Zion PRINGLE on 11/22/24 [facility] Ness 11-13-2024 TARIKN Telephone ([employer]) KATALINA HUTCHINS ([id number]) 1965 F Date Time Provider Department 11/13/24 Zion PRINGLE During your visit today, we recorded the following information about you: Argenis Reynolds RN 11/13/2024 9:46 AM Signed Call placed to [facility] due to still not having TG total result. Per lab, they checked with lab pam this am and result still pending. PSS- please call pt and delay phone appt 1 week so we have result. Thank you SHAYLA Prasad Amy S 11/13/2024 10:01 AM Signed Lvm for patient to call back and move phone visit appt out a week. ELLA Mathews Amy S 11/13/2024 1:31 PM Signed Spoke with patient [...] Status:Closed by ARGENIS REYNOLDS on 11/15/24 Normal [facility] ALL CBC WITH AUTO DIFFon BASOPHILS ABSOLUTE AUTO 0.1 [facility] Basophils/100 WBC (Bld) 0.8 % 0.2 - 2.0 % [facility] Eosinophils/100 WBC (Bld) 1.8 % 0.9 - 7.0 % [facility] Erythrocyte distribution width (RBC) [Ratio] 15.6 % High 11.0 - 15.0 % [facility] Hematocrit (Bld) [Volume fraction] 37.4 % 36.0 - 48.0 % [facility] Hemoglobin (Bld) [Mass/Vol] 12.7 g/dL 12.0 - 16.0 g/dL [facility] IMMATURE GRANULOCYTES ABS AUTO 0.03 [facility] Immature granulocytes/100 WBC (Bld) 0.4 % 0.0 - 0.5 % [facility] Interpretation and review of laboratory results Abnormal [facility] LYMPHOCYTES ABSOLUTE AUTO 2 [facility] Lymphocytes/100 WBC (Bld) 28.3 % 20.5 - 60.0 % [facility] MCH (RBC) [Entitic mass] 27.9 pg 26.7 - 34.0 pg [facility] MCHC (RBC) [Mass/Vol] 34 g/dL 29.9 - 35.2 g/dL [facility] MCV (RBC) [Entitic vol] 82.2 fL 81.0 - 99.0 fL [facility] MONOCYTES ABSOLUTE AUTO 0.6 [facility] Monocytes/100 WBC (Bld) 7.8 % 1.7 - 12.0 % [facility] NEUTROPHILS ABSOLUTE AUTO 4.3 [facility] Neutrophils/100 WBC (Bld) 60.9 % 43.0 - 75.0 % [facility] Platelet mean volume (Bld) [Entitic vol] 10.7 fL 9.5 - 13.5 fL [facility] TBH EO # 0.1 [facility] TB PLT 203 [facility] RBC 4.55 [facility] WBC 7.1 [facility] CNPNon 07-24-2024 [place] Telephone (RADTSA) KATALINA HUTCHINS ([id number]) 1965 F Date Time Provider Department 07/24/24 [...] months out. Please fax lab orders to [facility] once signed and also mail paper copy of all orders to patient. Thank you SHAYLA Prasad Jodi 07/24/2024 2:19 PM Signed Patient scheduled for 3 month phone visit. Just waiting on orders to be signed to be mailed to patient and faxed to [facility]. Catina Jewelldi 07/24/2024 4:01 PM Signed Orders faxed to [facility] and mailed to patient home. Allergies As of Date: 07/24/2024 Noted Allergy Reaction ADHESIVE 05/11/2012 2 - Rash Date Reviewed: 09/16/2020 Reviewed by: Kaitlynn Carreon (Gagandeep), RN - Fully Assessed Reason for Visit: Lab Orders [1158] Patient Update [1234] Future Appointment [256] Primary Visit Diagnosis:History of thyroid cancer [Z85.850] Order(s):T4/THYROXINE [SQT4] Order #: [id number] FUTURE THYROID STIMULATING HORMONE [SQTSH] Order #: [id number] FUTURE THYROGLOBULIN, SERUM WITH REFLEX TO IA OR LC-MS/MS [SQTHYRORF] Order #: [id number] FUTURE Prescriptions as of 07/24/2024 - levothyroxine [...] Status:Closed by MYRIAM JEWELL on 07/24/24 Normal [facility] Glucose (Bld) [Mass/Vol]on 0 07-13-2024 Glucose Blood, POC 286 mg/dL [facility] Laboratory - Hematology and Cell countson 07-13-2024 HbA1c (Bld) [Mass fraction] 9.5 % [facility] No Panel Informationon 07-13 Interpretation and review of laboratory results Abnormal [facility] ALL THYROID STIM HORMONEon 0 06-12-2024 TSH Qn 2.668 m[IU]/L [facility] ALL THYROXINE (T4)on 025 Interpretation and review of laboratory results Abnormal [facility] T4 [Mass/Vol] 16.3 ug/dL High 4.80 - 13.90 ug/dL [facility] No Panel Informationon 06-12 [facility] CNPYvonne 03-22-2024 CNPN Telephone (RADTSA) KATALINA HUTCHINS ([id number]) 1965 F Date Time Provider Department 03/22/24 Zion PRINGLE During your visit today, we recorded the following information about you: Argenis Reynolds RN 03/22/2024 2:46 PM Signed PSS-Per Dr Pringle, he was unable to reach pt for her phone visit. He would like patient to have labs rechecked and then a phone visit in July. These labs will take 7-10 days, so pt will need to have phone visit scheduled 2 weeks after labs. Once signed, please fax orders to [facility] and also mail paper copy to patient. Dr Pringle- please sign pended orders for February and synthroid refill so pt will not run out again. Thank you SHAYLA Prasad Jodi 03/23/2024 7:10 AM Signed Watching for signed orders and will finish Myriam Jewell 03/23/2024 10:45 AM Signed Faxed orders to [facility]. To be drawn by 07/11 to [...] Fully Assessed Reason for Visit: Lab Orders [168] Future Appointment [256] Primary Visit Diagnosis:History of thyroid cancer [Z85.850] Order(s):T4/THYROXINE [SQT4] Order #: [id number] FUTURE THYROID STIMULATING HORMONE [SQTSH] Order #: [id number] FUTURE THYROGLOBULIN, SERUM WITH REFLEX TO IA OR LC-MS/MS [SQTHYRORF] Order #: [id number] FUTURE levothyroxine (SYNTHROID) 200 mcg tabletTake 1 [...] Status:Closed by ARGENIS REYNOLDS on 03/26/24 Normal [facility] ALL THYROID STIM HORMONEon 1 Interpretation and review of laboratory results Abnormal [facility] TSH Qn 8.949 m[IU]/L High [facility] ALL THYROXINE (T4)on 024 T4 [Mass/Vol] 10.90 ug/dL 4.80 - 13.90 ug/dL [facility] No Panel Informationon 03-15 [facility] Glucose (Bld) [Mass/Vol]on Glucose Blood, POC 144 mg/dL [facility] Interpretation and review of laboratory results Abnormal [facility] HbA1c (Bld) [Mass fraction]o n 03-08-2024 Interpretation and review of laboratory results Normal [facility] Laboratory - Hematology and Cell countson 03-08-2024 HbA1c (Bld) [Mass fraction] 7.2 % [facility] No Panel Informationon 03-08 [facility] Glucose Glucometer (BldC) [M ass/Vol]on 09-27-2023 Glucose [Mass/Vol] 169 mg/dL High 65-99 [facility] Surgical Pathologyon 024 Surgical Pathology Normal [facility] Comment on above: Result Comment: [facility] [address] [place] [address] Surgical Pathology Consultation Patient Name:KATALINA HUTCHINS:1965 (Age: 58)Gender:FTaken:09/27/2023eported:09/29/2023hysician(s):Latosha Corbett D.O. ([phone])Copy To: Rec. #:[id number]: #[id number] Final Pathologic Diagnosis Transverse colon polyp: Tubular adenoma fragments. Report Electronically Signed Out /09/29/2023Bee Montalvo MD Interpretation performed at [facility] [place], [address] [place], [address], License number: [id number]. Clinical History Family history of colon cancer. Gross Description Received in formalin labeled STILTNER, transverse is a single medellin strip of soft tissue, 1.1 cm in greatest dimension. Filtered and submitted in a single cassette. (1, ns, [id number], m7) MG mjg/09/27/2023NSK Specimen(s) Received Transverse colon polyp Fee Codes(s): 1; 94042 CBC AUTO DIFFon 10-12-2022 BASO # 0.1 103/ul Normal 0.0-0.1 [facility] Comment on above: Performed By: #### C BC #### [facility] [address] [place] [address] Dr. Karena Montero Basophils/100 WBC (Bld) 0.8 % Normal 0.2-2.0 [facility] Comment on above: Performed By: #### C BC #### [facility] [address] [place] [address] Dr. Karena Montero EO # 0.2 103/ul Normal 0.0-0.7 [facility] Comment on above: Performed By: #### C BC #### [facility] [address] [place] [address] Dr. Karena Montero Eosinophils/100 WBC (Bld) 2.5 % Normal 0.9-7.0 [facility] Comment on above: Performed By: #### C BC #### [facility] [address] [place] [address] Dr. Karena Montero Erythrocyte distribution width (RBC) [Ratio] 14.5 % Normal 11.0-15.0 [facility] Comment on above: Performed By: #### C BC #### [facility] [address] [place] [address] Dr. Karena Montero Hematocrit (Bld) [Volume fraction] 42.9 % Normal 36.0-48.0 [facility] Comment on above: Performed By: #### C BC #### [facility] [address] [place] [address] Dr. Karena Montero Hemoglobin (Bld) [Mass/Vol] 14.3 g/dL Normal 12.0-16.0 [facility] Comment on above: Performed By: #### C BC #### [facility] [address] [place] [address] Dr. Karena Montero IG # 0.02 10e3/ul Normal 0.00-0.03 [facility] Comment on above: Performed By: #### C BC #### [facility] [address] [place] [address] Dr. Karena Montero IG % 0.3 % Normal 0.0-0.5 [facility] Comment on above: Performed By: #### C BC #### [facility] [address] [place] [address] Dr. Karena Montero LYMPH # 1.6 103/ul Normal 1.2-3.8 [facility] Comment on above: Performed By: #### C BC #### [facility] [address] [place] [address] Dr. Karena Montero Lymphocytes/100 WBC (Bld) 27.2 % Normal 20.5-60.0 [facility] Comment on above: Performed By: #### C BC #### [facility] [address] [place] [address] Dr. Karena Montero MANUAL DIFF REQ NO Normal [facility] Comment on above: Performed By: #### C BC #### [facility] [address] [place] [address] Dr. Karena Montero MCH (RBC) [Entitic mass] 28.9 pg Normal 26.7-34.0 [facility] Comment on above: Performed By: #### C BC #### [facility] [address] [place] [address] Dr. Karena Montero MCHC (RBC) [Mass/Vol] 33.3 g/dL Normal 29.9-35.2 [facility] Comment on above: Performed By: #### C BC #### [facility] [address] [place] [address] Dr. Karena Montero MCV (RBC) [Entitic vol] 86.8 fL Normal 81.0-99.0 [facility] Comment on above: Performed By: #### C BC #### [facility] [address] [place] [address] Dr. Karena Montero MONO # 0.5 103/ul Normal 0.3-0.8 [facility] Comment on above: Performed By: #### C BC #### [facility] [address] [place] [address] Dr. Karena Montero Monocytes/100 WBC (Bld) 8.5 % Normal 1.7-12.0 [facility] Comment on above: Performed By: #### C BC #### [facility] [address] [place] [address] Dr. Karena Montero NEUT # 3.7 103/ul Normal 1.4-6.5 [facility] Comment on above: Performed By: #### C BC #### [facility] [address] [place] [address] Dr. Karena Montero Neutrophils/100 WBC (Bld) 60.7 % Normal 43.0-75.0 [facility] Comment on above: Performed By: #### C BC #### [facility] [address] [place] [address] Dr. Karena Montero Platelet mean volume (Bld) [Entitic vol] 10.2 fL Normal 9.5-13.5 [facility] Comment on above: Performed By: #### C BC #### [facility] [address] [place] [address] Dr. Karena Montero PLT 214 103/ul Normal 150-450 [facility] Comment on above: Performed By: #### C BC #### [facility] [address] [place] [address] Dr. Karena Montero RBC 4.94 106/ul Normal 4.20-5.40 [facility] Comment on above: Performed By: #### C BC #### [facility] [address] [place] [address] Dr. Karena Montero WBC 6.0 103/ul Normal 4.0-11.0 [facility] Comment on above: Performed By: #### C BC #### [facility] [address] [address] [address] Karena Montero GLYCOHEMOGLOBIN A1Con 2022 ADA RECOMMENDATION SEE BELOW Normal [facility] Comment on above: Result Comment: ADA RECOMMENDED LIMIT 4.0 - 6.0 ADA THERAPEUTIC TARGET < 7.0 ACTION SUGGESTED > 7.0 Performed By: #### C BC #### [facility] [address] [place] [address] Dr. Karena Montero Glucose [Mass/Vol] 292 mg/dL Normal [facility] Comment on above: Performed By: #### C BC #### [facility] [address] [place] [address] Dr. Karena Montero HbA1c (Bld) [Mass fraction] 11.8 % Critically high 4.5-6.2 [facility] Comment on above: Performed By: #### C BC #### [facility] [address] [place] [address] Dr. Karena Montero LIPID PROFILEon 10-12-2022 CHOL-HDL RATIO NORM SEE BELOW Normal [facility] Comment on above: Result Comment: 3.3 - 4.4 LOW RISK 4.4 - 7.1 AVERAGE RISK 7.1 - 11.0 MODERATE RISK >11.0 HIGH RISK Performed By: #### C BC #### [facility] [address] [place] [address] Dr. Karena Montero Cholesterol [Mass/Vol] 199 mg/dL Normal <=200 [facility] Comment on above: Performed By: #### C BC #### [facility] [address] [place] [address] Dr. Karena Montero Cholesterol in HDL [Mass/Vol] 63 mg/dL Critically high 40-60 [facility] Comment on above: Performed By: #### C BC #### [facility] [address] [place] [address] Dr. Karena Montero Cholesterol in LDL [Mass/Vol] 119.8 mg/dL Normal [facility] Comment on above: Performed By: #### C BC #### [facility] [address] [address] [address] Karena Montero Cholesterol.total/C holesterol in HDL [Mass ratio] 3.2 {ratio} Normal [facility] Comment on above: Performed By: #### C BC #### [facility] [address] [address] [address] Karena Montero HDL NORMAL > or = 60 mg/dl - LO W CARDIOVASCULAR RISK <40 mg/dl - HIGH CARDIOVASCULAR RISK Normal [facility] Comment on above: Performed By: #### C BC #### [facility] [address] [address] [address] Karena Montero LDL CALC NORMAL SEE BELOW Normal [facility] Comment on above: Result Comment: <100 mg/dl OPTIMAL 100 - 129 mg/dl NEAR OR ABOVE OPTIMAL 130 - 159 mg/dl BORDERLINE HIGH 160 - 189 mg/dl HIGH >190 mg/dl VERY HIGH Performed By: #### C BC #### [facility] [address] [place] [address] Dr. Karena Montero Triglyceride [Mass/Vol] 81 mg/dL Normal <=150 [facility] Comment on above: Performed By: #### C BC #### [facility] [address] [address] [address] Karena Montero VLDL CALC 16.2 mg/dL Normal [facility] Comment on above: Performed By: #### C BC #### [facility] [address] [place] [address] Dr. Karena Montero MICROALBUMIN, RAND URon 05-0 mALB 4.5 mg/L Normal <=30.0 [facility] Comment on above: Performed By: #### M ALBR #### [facility] [address] [place] [address] Dr. Karena Montero PROF 14(COMP METB)on 023 Albumin [Mass/Vol] 3.3 g/dL Critically low 3.4-5.0 [facility] [place] Comment on above: Performed By: #### C BC #### [facility] [address] [place] [address] Dr. Karena Montero Albumin/Globulin [Mass ratio] 0.7 {ratio} Normal [facility] Comment on above: Performed By: #### C BC #### [facility] [address] [address] [address] Karena Montero ALP [Catalytic activity/Vol] 45 U/L Critically low 46-116 [facility] Comment on above: Performed By: #### C BC #### [facility] [address] [address] [address] Karena Montero ALT [Catalytic activity/Vol] 46 U/L Normal 14-59 [facility] Comment on above: Performed By: #### C BC #### [facility] [address] [address] [address] Karena Montero Anion gap [Moles/Vol] 12.5 mmol/L Normal [facility] Comment on above: Performed By: #### C BC #### [facility] [address] [place] [address] Dr. Karena Montero AST [Catalytic activity/Vol] 50 U/L Critically high 15-37 [facility] Comment on above: Performed By: #### C BC #### [facility] [address] [address] [address] Karena Montero Bilirubin [Mass/Vol] 0.9 mg/dL Normal 0.2-1.0 [facility] Comment on above: Performed By: #### C BC #### [facility] [address] [address] [address] Karena Montero Calcium [Mass/Vol] 9.5 mg/dL Normal 8.5-10.1 [facility] Comment on above: Performed By: #### C BC #### [facility] [address] [address] [address] Karena Montero Chloride [Moles/Vol] 102 mmol/L Normal 98-107 [facility] Comment on above: Performed By: #### C BC #### [facility] [address] [address] [address] Karena Montero CO2 [Moles/Vol] 29.4 mmol/L Normal 21.0-32.0 [facility] Comment on above: Performed By: #### C BC #### [facility] [address] [address] [address] Karena Montero Creatinine [Mass/Vol] 0.89 mg/dL Normal 0.55-1.02 [facility] Comment on above: Performed By: #### C BC #### [facility] [address] [address] [address] Karena Montero EGFR-AF BURMESE >60 Normal >=60 [facility] Comment on above: Performed By: #### C BC #### [facility] [address] [address] [address] Karena Montero EGFR-NON AF BURMESE >60 Normal >=60 [facility] Comment on above: Performed By: #### C BC #### [facility] [address] [place] [address] Dr. Karena Montero Globulin (S) [Mass/Vol] 4.6 g/dL Normal [facility] Comment on above: Performed By: #### C BC #### [facility] [address] [place] [address] Dr. Karena Montero Glucose [Mass/Vol] 163 mg/dL Critically high 74-106 [facility] Comment on above: Performed By: #### C BC #### [facility] [address] [place] [address] Dr. Karena Montero Potassium [Moles/Vol] 4.9 mmol/L Normal 3.5-5.1 [facility] Comment on above: Performed By: #### C BC #### [facility] [address] [place] [address] Dr. Karena Montero Protein [Mass/Vol] 7.9 g/dL Normal 6.4-8.2 [facility] Comment on above: Performed By: #### C BC #### [facility] [address] [place] [address] Dr. Karena Montero Sodium [Moles/Vol] 139 mmol/L Normal 136-145 [facility] Comment on above: Performed By: #### C BC #### [facility] [address] [place] [address] Dr. Karena Montero Urea nitrogen [Mass/Vol] 11.0 mg/dL Normal 7.0-18.0 [facility] Comment on above: Performed By: #### C BC #### [facility] [address] [place] [address] Dr. Karena Montero Urea nitrogen/Creatinine [Mass ratio] 12.4 mg/mg Normal [facility] Comment on above: Performed By: #### C BC #### [facility] [address] [place] [address] Dr. Karena Montero UA RANDOM W/MICROSCOPICon BACTERIA TRACE Abnormal NONE SEEN [facility] Comment on above: Performed By: #### M RUBY #### [facility] [address] [place] [address] Dr. Karena Montero Bilirubin Ql (U) Negative Normal NEGATIVE [facility] Comment on above: Performed By: #### M RUBY #### [facility] [address] [place] [address] Dr. Karena Montero CAST SEEN Abnormal NONE SEEN [facility] Comment on above: Performed By: #### M RUBY #### [facility] [address] [place] [address] Dr. Karena Montero Clarity (U) CLEAR Normal CLEAR [facility] Comment on above: Performed By: #### M RUBY #### [facility] [address] [place] [address] Dr. Karena Montero Color (U) YELLOW Normal YELLOW [facility] Comment on above: Performed By: #### M RUBY #### [facility] [address] [place] [address] Dr. Karena Montero Crystals LM Nom (Urine sed) NONE SEEN Normal NONE SEEN [facility] Comment on above: Performed By: #### M RUBY #### [facility] [address] [place] [address] Dr. Karena Montero Epithelial cells LM Ql (Urine sed) RARE Normal NONE SEEN /RARE [facility] Comment on above: Performed By: #### M RUBY #### [facility] [address] [place] [address] Dr. Karena Montero Glucose Ql (U) Negative Normal NEGATIVE [facility] Comment on above: Performed By: #### M RUBY #### [facility] [address] [place] [address] Dr. Karena Montero Hemoglobin Ql (U) Negative Normal NEGATIVE [facility] Comment on above: Performed By: #### M RUBY #### [facility] [address] [address] [address] Karena Montero HYALINE CAST RARE Normal [facility] Comment on above: Performed By: #### M RUBY #### [facility] [address] [address] [address] Karena Montero Ketones Ql (U) Negative Normal NEGATIVE [facility] Comment on above: Performed By: #### M RUBY #### [facility] [address] [place] [address] Dr. Karena Montero LEUKOCYTES SMALL Abnormal NEGATIVE [facility] Comment on above: Performed By: #### M RUBY #### [facility] [address] [place] [address] Dr. Karena Montero MUCOUS NONE SEEN Normal NONE SEEN [facility] Comment on above: Performed By: #### M RUBY #### [facility] [address] [place] [address] Dr. Karena Montero Nitrite Ql (U) Negative Normal NEGATIVE [facility] Comment on above: Performed By: #### M RUBY #### [facility] [address] [place] [address] Dr. Karena Montero pH (U) 5.0 [pH] Normal 5-9 [facility] Comment on above: Performed By: #### M RUBY #### [facility] [address] [address] [address] Karena Montero RBC 0-2 Normal 0-2 [facility] Comment on above: Performed By: #### M RUBY #### [facility] [address] [place] [address] Dr. Karena Montero SPEC GRAVITY >=1.030 Abnormal 1.005-<=1.025 [facility] Comment on above: Performed By: #### M RUBY #### [facility] [address] [address] [address] Karena Monteor UA PROTEIN TRACE Normal NEGATIVE/ TRACE [facility] Comment on above: Performed By: #### M RUBY #### [facility] [address] [address] [address] Karena Montero Urobilinogen Qn (U) 4 {Emily'U}/dL Abnormal 0.2 - 1.0 [facility] Comment on above: Performed By: #### M RUBY #### [facility] [address] [address] [address] Karena Montero WBC 10-20 Abnormal NONE SEEN [facility] Comment on above: Performed By: #### M RUBY #### [facility] [address] [place] [address] Dr. Karena Montero T3, TOTAL (TRIIODOTHYRONINE) on 09-10-2022 T3, TOTAL 92 ng/dL Normal 71-180 [facility] Comment on above: Performed By: #### C BC #### [facility] [address] [place] [address] Dr. Karena Montero T4on 09-08-2022 T4 [Mass/Vol] 11.70 ug/dL Normal 4.80-13.90 [facility] Comment on above: Performed By: #### T 4, TSH #### [facility] [address] [place] [address] Dr. Karena Montero TSHon 09-08-2022 TSH 10.637 uIU/mL Critically high 0.358-3.740 [facility] Comment on above: Performed By: #### T 4, TSH #### [facility] [address] [place] [address] NECK ST W [...] DEONNA CHERRY Date: 2022-06-20 22:08 Normal [facility] CBC AUTO DIFFon 06-20-2022 BASO # 0.1 103/ul Normal 0.0-0.1 [facility] Comment on above: Performed By: #### T 4, TSH #### [facility] [address] [place] [address] Dr. Karena Montero Basophils/100 WBC (Bld) 0.9 % Normal 0.2-2.0 [facility] Comment on above: Performed By: #### T 4, TSH #### [facility] [address] [address] [address] Karena Montero EO # 0.1 103/ul Normal 0.0-0.7 [facility] Comment on above: Performed By: #### T 4, TSH #### [facility] [address] [place] [address] Dr. Karena Montero Eosinophils/100 WBC (Bld) 0.5 % Critically low 0.9-7.0 [facility] Comment on above: Performed By: #### T 4, TSH #### [facility] [address] [place] [address] Dr. Karena Montero Erythrocyte distribution width (RBC) [Ratio] 13.8 % Normal 11.0-15.0 [facility] Comment on above: Performed By: #### T 4, TSH #### [facility] [address] [place] [address] Dr. Karena Montero Hematocrit (Bld) [Volume fraction] 39.7 % Normal 36.0-48.0 [facility] Comment on above: Performed By: #### T 4, TSH #### [facility] [address] [place] [address] Dr. Karena Montero Hemoglobin (Bld) [Mass/Vol] 13.7 g/dL Normal 12.0-16.0 [facility] Comment on above: Performed By: #### T 4, TSH #### [facility] [address] [place] [address] Dr. Karena Montero IG # 0.06 10e3/ul Critically high 0.00-0.03 [facility] Comment on above: Performed By: #### T 4, TSH #### [facility] [address] [place] [address] Dr. Karena Montero IG % 0.6 % Critically high 0.0-0.5 [facility] Comment on above: Performed By: #### T 4, TSH #### [facility] [address] [place] [address] Dr. Karena Montero LYMPH # 2.0 103/ul Normal 1.2-3.8 [facility] Comment on above: Performed By: #### T 4, TSH #### [facility] [address] [place] [address] Dr. Karena Montero Lymphocytes/100 WBC (Bld) 19.1 % Critically low 20.5-60.0 [facility] Comment on above: Performed By: #### T 4, TSH #### [facility] [address] [place] [address] Dr. Karena Montero MANUAL DIFF REQ NO Normal [facility] Comment on above: Performed By: #### T 4, TSH #### [facility] [address] [place] [address] Dr. Karena Montero MCH (RBC) [Entitic mass] 28.8 pg Normal 26.7-34.0 [facility] Comment on above: Performed By: #### T 4, TSH #### [facility] [address] [place] [address] Dr. Karena Montero MCHC (RBC) [Mass/Vol] 34.5 g/dL Normal 29.9-35.2 [facility] Comment on above: Performed By: #### T 4, TSH #### [facility] [address] [place] [address] Dr. Karena Montero MCV (RBC) [Entitic vol] 83.4 fL Normal 81.0-99.0 [facility] Comment on above: Performed By: #### T 4, TSH #### [facility] [address] [place] [address] Dr. Karena Montero MONO # 0.9 103/ul Critically high 0.3-0.8 [facility] Comment on above: Performed By: #### T 4, TSH #### [facility] [address] [place] [address] Dr. Karena Montero Monocytes/100 WBC (Bld) 8.2 % Normal 1.7-12.0 [facility] Comment on above: Performed By: #### T 4, TSH #### [facility] [address] [place] [address] Dr. Karena Montero NEUT # 7.5 103/ul Critically high 1.4-6.5 [facility] Comment on above: Performed By: #### T 4, TSH #### [facility] [address] [place] [address] Dr. Karena Montero Neutrophils/100 WBC (Bld) 70.7 % Normal 43.0-75.0 [facility] Comment on above: Performed By: #### T 4, TSH #### [facility] [address] [place] [address] Dr. Karena Montero Platelet mean volume (Bld) [Entitic vol] 10.5 fL Normal 9.5-13.5 [facility] Comment on above: Performed By: #### T 4, TSH #### [facility] [address] [place] [address] Dr. Karena Montero PLT 253 103/ul Normal 150-450 [facility] Comment on above: Performed By: #### T 4, TSH #### [facility] [address] [place] [address] Dr. Karena Montero RBC 4.76 106/ul Normal 4.20-5.40 [facility] Comment on above: Performed By: #### T 4, TSH #### [facility] [address] [place] [address] Dr. Karena Montero WBC 10.6 103/ul Normal 4.0-11.0 [facility] Comment on above: Performed By: #### T 4, TSH #### [facility] [address] [place] [address] Dr. Karena Montero CULTURE BLOODon 06-20-2022 Microscopic examination of blood, culture Culture Observations: NO GROWTH AT 5 DAYS. Normal [facility] Comment on above: Performed By: #### T 4, TSH #### [facility] [address] [place] [address] Dr. Karena Montero Microscopic examination of blood, culture Culture Observations: NO GROWTH AT 5 DAYS. Normal [facility] Comment on above: Performed By: #### T 4, TSH #### [facility] [address] [place] [address] Dr. Karena Montero LACTATE/LACTIC ACIDon 2022 Lactate [Moles/Vol] 1.5 mmol/L Normal 0.4-1.9 [facility] Comment on above: Performed By: #### T 4, TSH #### [facility] [address] [place] [address] Dr. Karena Montero MONOon 06-20-2022 Monocytes (Bld) [#/Vol] Negative Normal NEGATIVE [facility] Comment on above: Performed By: #### M RUBY #### [facility] [address] [address] [address] Karena Montero PROF 14(COMP METB)on 023 Albumin [Mass/Vol] 3.1 g/dL Critically low 3.4-5.0 [facility] Comment on above: Performed By: #### C MP #### [facility] [address] [place] [address] Dr. Karena Montero Albumin/Globulin [Mass ratio] 0.6 {ratio} Normal [facility] Comment on above: Performed By: #### C MP #### [facility] [address] [place] [address] Dr. Karena Montero ALP [Catalytic activity/Vol] 47 U/L Normal 46-116 [facility] Comment on above: Performed By: #### C MP #### [facility] [address] [place] [address] Dr. Karena Montero ALT [Catalytic activity/Vol] 20 U/L Normal 14-59 [facility] Comment on above: Performed By: #### C MP #### [facility] [address] [place] [address] Dr. Karena Montero Anion gap [Moles/Vol] 11.1 mmol/L Normal [facility] Comment on above: Performed By: #### C MP #### [facility] [address] [place] [address] Dr. Karena Montero AST [Catalytic activity/Vol] 24 U/L Normal 15-37 [facility] Comment on above: Performed By: #### C MP #### [facility] [address] [place] [address] Dr. Karena Montero Bilirubin [Mass/Vol] 1.5 mg/dL Critically high 0.2-1.0 [facility] Comment on above: Performed By: #### C MP #### [facility] [address] [place] [address] Dr. Karena Montero Calcium [Mass/Vol] 9.4 mg/dL Normal 8.5-10.1 [facility] Comment on above: Performed By: #### C MP #### [facility] [address] [address] [address] Karena Montero Chloride [Moles/Vol] 94 mmol/L Critically low 98-107 [facility] Comment on above: Performed By: #### C MP #### [facility] [address] [address] [address] Karena Montero CO2 [Moles/Vol] 27.9 mmol/L Normal 21.0-32.0 [facility] Comment on above: Performed By: #### C MP #### [facility] [address] [place] [address] Dr. Karena Montero Creatinine [Mass/Vol] 0.85 mg/dL Normal 0.55-1.02 [facility] Comment on above: Performed By: #### C MP #### [facility] [address] [place] [address] Dr. Karena Montero EGFR-AF BURMESE >60 Normal >=60 [facility] Comment on above: Performed By: #### C MP #### [facility] [address] [address] [address] Karena Montero EGFR-NON AF BURMESE >60 Normal >=60 [facility] Comment on above: Performed By: #### C MP #### [facility] [address] [place] [address] Dr. Karena Montero Globulin (S) [Mass/Vol] 5.3 g/dL Normal [facility] Comment on above: Performed By: #### C MP #### [facility] [address] [place] [address] Dr. Karena Montero Glucose [Mass/Vol] 204 mg/dL Critically high 74-106 [facility] Comment on above: Performed By: #### C MP #### [facility] [address] [address] [address] Karena Montero Potassium [Moles/Vol] 3.0 mmol/L Critically low 3.5-5.1 [facility] Comment on above: Performed By: #### C MP #### [facility] [address] [place] [address] Dr. Karena Montero Protein [Mass/Vol] 8.4 g/dL Critically high 6.4-8.2 T [facility] Comment on above: Performed By: #### C MP #### [facility] [address] [place] [address] Dr. Karena Montero Sodium [Moles/Vol] 130 mmol/L Critically low 136-145 [facility] [place] Comment on above: Performed By: #### C MP #### [facility] [address] [place] [address] Dr. Karena Montero Urea nitrogen [Mass/Vol] 10.0 mg/dL Normal 7.0-18.0 [facility] Comment on above: Performed By: #### C MP #### [facility] [address] [place] [address] Dr. Karena Montero Urea nitrogen/Creatinine [Mass ratio] 11.8 mg/mg Normal [facility] Comment on above: Performed By: #### C MP #### [facility] [address] [place] [address] Dr. Karena Montero STREPT SCREENon 06-20-2022 STREP SCREEN A Positive Abnormal NEGATIVE [facility] [facility] Comment on above: Performed By: #### C BC #### [facility] [address] [place] [address] Dr. Karena Montero THYROGLOBULIN AB AND THYROGL OBULINon 05-29-2022 Thyroglobulin Antibody <1.0 Normal 0.0-0.9 [facility] Comment on above: Result Comment: Thyr oglobulin Antibody measured by Ewa Donna Methodology Performed By: #### T HYGIMA #### [facility] [address] [place] [address] Dr. Karena Montero Thyroglobulin by ZACK <0.1 Critically low 1.5-38.5 [facility] Comment on above: Result Comment: Acco [...] 0.1 ng/mL . Thyroglobulin measured by Ewa [place] Immunometric Assay Performed By: #### T HYGIMA #### [facility] [address] [place] [address] Dr. Karena Montero T3, TOTAL (TRIIODOTHYRONINE) on 05-28-2022 T3, TOTAL 77 ng/dL Normal 71-180 [facility] Comment on above: Performed By: #### C BC #### [facility] [address] [place] [address] Dr. Karena Montero GLYCOHEMOGLOBIN A1Con 2021 ADA RECOMMENDATION SEE BELOW Normal [facility] Comment on above: Result Comment: ADA RECOMMENDED LIMIT 4.0 - 6.0 ADA THERAPEUTIC TARGET < 7.0 ACTION SUGGESTED > 7.0 Performed By: #### T 4, TSH #### [facility] [address] [place] [address] Dr. Karena Montero Glucose [Mass/Vol] 252 mg/dL Normal [facility] Comment on above: Performed By: #### T 4, TSH #### [facility] [address] [place] [address] Dr. Karena Montero HbA1c (Bld) [Mass fraction] 10.4 % Critically high 4.5-6.2 [facility] Comment on above: Performed By: #### T 4, TSH #### [facility] [address] [place] [address] Dr. Karena Montero PROF CHEM 8 (BAS METB)on Anion gap [Moles/Vol] 11.2 mmol/L Normal [facility] Comment on above: Performed By: #### C BC #### [facility] [address] [place] [address] Dr. Karena Montero Calcium [Mass/Vol] 9.2 mg/dL Normal 8.5-10.1 [facility] Comment on above: Performed By: #### C BC #### [facility] [address] [place] [address] Dr. Karena Montero Chloride [Moles/Vol] 98 mmol/L Normal 98-107 [facility] Comment on above: Performed By: #### C BC #### [facility] [address] [address] [address] Karena Montero CO2 [Moles/Vol] 30.4 mmol/L Normal 21.0-32.0 [facility] Comment on above: Performed By: #### C BC #### [facility] [address] [address] [address] Karena Montero Creatinine [Mass/Vol] 0.99 mg/dL Normal 0.55-1.02 [facility] Comment on above: Performed By: #### C BC #### [facility] [address] [address] [address] Karena Montero EGFR-AF BURMESE >60 Normal >=60 [facility] Comment on above: Performed By: #### C BC #### [facility] [address] [address] [address] Karena Montero EGFR-NON AF BURMESE 58 mL/min/1.73m2 Critically low >=60 [facility] Comment on above: Performed By: #### C BC #### [facility] [address] [address] [address] Karena Montero Glucose [Mass/Vol] 274 mg/dL Critically high 74-106 T [facility] Comment on above: Performed By: #### C BC #### [facility] [address] [address] [address] Karena Montero Potassium [Moles/Vol] 3.6 mmol/L Normal 3.5-5.1 [facility] Comment on above: Performed By: #### C BC #### [facility] [address] [address] [address] Karena Montero Sodium [Moles/Vol] 136 mmol/L Normal 136-145 [facility] Comment on above: Performed By: #### C BC #### [facility] [address] [address] [address] Karena Montero Urea nitrogen [Mass/Vol] 13.0 mg/dL Normal 7.0-18.0 [facility] Comment on above: Performed By: #### C BC #### [facility] [address] [address] [address] Karena Montero Urea nitrogen/Creatinine [Mass ratio] 13.1 mg/mg Normal [facility] Comment on above: Performed By: #### C BC #### [facility] [address] [address] [address] Karena Montero T4on 05-27-2022 T4 [Mass/Vol] 11.00 ug/dL Normal 4.80-13.90 [facility] Comment on above: Performed By: #### C BC #### [facility] [address] [address] [address] Karena Montero TSHon 05-27-2022 TSH 35.436 uIU/mL Critically high 0.358-3.740 [facility] Comment on above: Performed By: #### C BC #### [facility] [address] [address] [address] Karena Montero MG MAMM SCREEN 3D FRANCI CADon 04-27-2022 MG MAMM SCREEN 3D FRANCI CAD Patient: KATALINA HUTCHINS Exam Date: 04/27/2022 : 1965 Gender:F Ordering : TARIK KATALINAJamie AGUDELORashadBAILEEJaskaran [facility] Admission #: [id number] Family : Order #: [id number] CLICK HERE TO VIEW EXAM RADIOLOGY REPORT [...] uterine cancer at age 28. LOCATION: [facility] BREAST COMPOSITION: Scattered areas fibroglandular density. [...] Jean M.D. on 04/28/2022 at 12:11 Normal [facility] PTH INTACTon 02-20-2022 PTH, Intact 11 pg/mL Critically low 15-65 [facility] Comment on above: Performed By: #### T 4, TSH #### [facility] [address] [address] [address] Karena Montero VIT D 25-OH LABCORPon 2021 Vitamin D, 25-Hydroxy 43.2 ng/mL Normal 30.0-100.0 [facility] Comment on above: Result Comment: Yvonne min D deficiency has been defined by the [place] of Medicine and an Endocrine Society practice guideline as a level of serum 25-OH vitamin D less than 20 ng/mL (1,2). The Endocrine Society went on to further define vitamin D insufficiency as a level between 21 and 29 ng/mL (2). 1. IOM ([place] of Medicine). 2010. Dietary reference intakes for calcium and D. [place]: The National Academies Press. 2. Herminia MF, Jean Marie NC, Shirin-Gustavo LOYOLA, et al. Evaluation, treatment, and prevention of vitamin D deficiency: an Endocrine Society clinical practice guideline. JCEM. 2010; 96(7):1911-30. Performed By: #### M RUBY #### [facility] [address] [place], [place] [address] Dr. Karena Montero CALCIUMon 02-18-2022 Calcium [Mass/Vol] 9.8 mg/dL Normal 8.5-10.1 [facility] Comment on above: Performed By: #### M RUBY #### [facility] [address] [place], [place] [address] Dr. Karena Montero Covid-19 PCR (CVDTB)on 01-06 SARS-CoV-2 (COVID-19) RNA RADHA+probe Ql (Unsp spec) Not detected Normal NOT DETECTED [facility] Comment on above: Result Comment: This test is not yet approved or cleared by the [place] FDA. When there are no FDA-approved or cleared tests available, and other criteria are met, FDA can make tests available under an emergency access mechanism called an Emergency Use Authorization (EUA). The EUA for this test is supported by the Trimmer Sawyer of Health and Human Service's (HHS's) declaration [...] SARS-CoV-2. Performed By: #### M RUBY #### [facility] [address] [place] [address] Dr. Karena Montero MICROALBUMIN URINEon 022 Albumin, Urine 64.2 ug/mL Normal Not Estab. [facility] Comment on above: Performed By: #### M ALBLC #### [facility] [address] [place] [address] Dr. Karena Montero T3, TOTAL (TRIIODOTHYRONINE) on 01-30-2022 T3, TOTAL 101 ng/dL Normal 71-180 [facility] Comment on above: Performed By: #### T 4, TSH #### [facility] [address] [place] [address] Dr. Karena Montero T4 [facility]on 01-30-2022 T4 [Mass/Vol] 12.3 ug/dL Critically high 4.5-12.0 [facility] Comment on above: Performed By: #### M RUBY #### [facility] [address] [place] [address] Dr. Karena Montero CBC AUTO DIFFon 01-29-2022 BASO # 0.1 103/ul Normal 0.0-0.1 [facility] Comment on above: Performed By: #### C BC #### [facility] [address] [place] [address] Dr. Karena Montero Basophils/100 WBC (Bld) 1.2 % Normal 0.2-2.0 [facility] Comment on above: Performed By: #### C BC #### [facility] [address] [place] [address] Dr. Karena Montero EO # 0.1 103/ul Normal 0.0-0.7 [facility] Comment on above: Performed By: #### C BC #### [facility] [address] [place] [address] Dr. Karena Montero Eosinophils/100 WBC (Bld) 2.6 % Normal 0.9-7.0 [facility] Comment on above: Performed By: #### C BC #### [facility] [address] [place] [address] Dr. Karena Montero Erythrocyte distribution width (RBC) [Ratio] 14.0 % Normal 11.0-15.0 [facility] Comment on above: Performed By: #### C BC #### [facility] [address] [place] [address] Dr. Karena Montero Hematocrit (Bld) [Volume fraction] 42.7 % Normal 36.0-48.0 [facility] Comment on above: Performed By: #### C BC #### [facility] [address] [place] [address] Dr. Karena Montero Hemoglobin (Bld) [Mass/Vol] 14.4 g/dL Normal 12.0-16.0 [facility] Comment on above: Performed By: #### C BC #### [facility] [address] [place] [address] Dr. Karena Montero IG # 0.01 10e3/ul Normal 0.00-0.03 [facility] Comment on above: Performed By: #### C BC #### [facility] [address] [place] [address] Dr. Karena Montero IG % 0.2 % Normal 0.0-0.5 [facility] Comment on above: Performed By: #### C BC #### [facility] [address] [place] [address] Dr. Karena Montero LYMPH # 1.5 103/ul Normal 1.2-3.8 [facility] Comment on above: Performed By: #### C BC #### [facility] [address] [place] [address] Dr. Karena Montero Lymphocytes/100 WBC (Bld) 34.5 % Normal 20.5-60.0 [facility] Comment on above: Performed By: #### C BC #### [facility] [address] [place] [address] Dr. Karena Montero MANUAL DIFF REQ NO Normal [facility] Comment on above: Performed By: #### C BC #### [facility] [address] [place] [address] Dr. Karena Montero MCH (RBC) [Entitic mass] 29.0 pg Normal 26.7-34.0 [facility] Comment on above: Performed By: #### C BC #### [facility] [address] [place] [address] Dr. Karena Montero MCHC (RBC) [Mass/Vol] 33.7 g/dL Normal 29.9-35.2 [facility] Comment on above: Performed By: #### C BC #### [facility] [address] [place] [address] Dr. Karena Montero MCV (RBC) [Entitic vol] 85.9 fL Normal 81.0-99.0 [facility] Comment on above: Performed By: #### C BC #### [facility] [address] [place] [address] Dr. Karena Montero MONO # 0.4 103/ul Normal 0.3-0.8 [facility] Comment on above: Performed By: #### C BC #### [facility] [address] [place] [address] Dr. Karena Montero Monocytes/100 WBC (Bld) 8.2 % Normal 1.7-12.0 [facility] Comment on above: Performed By: #### C BC #### [facility] [address] [place] [address] Dr. Karena Montero NEUT # 2.3 103/ul Normal 1.4-6.5 [facility] Comment on above: Performed By: #### C BC #### [facility] [address] [address] [address] Karena Montero Neutrophils/100 WBC (Bld) 53.3 % Normal 43.0-75.0 [facility] Comment on above: Performed By: #### C BC #### [facility] [address] [address] [address] Karena Montero Platelet mean volume (Bld) [Entitic vol] 11.6 fL Normal 9.5-13.5 [facility] Comment on above: Performed By: #### C BC #### [facility] [address] [address] [address] Karena Montero PLT 167 103/ul Normal 150-450 [facility] Comment on above: Performed By: #### C BC #### [facility] [address] [place] [address] Dr. Karena Montero RBC 4.97 106/ul Normal 4.20-5.40 [facility] Comment on above: Performed By: #### C BC #### [facility] [address] [address] [address] Karena Montero WBC 4.3 103/ul Normal 4.0-11.0 [facility] Comment on above: Performed By: #### C BC #### [facility] [address] [place] [address] Dr. Karena Montero GLYCOHEMOGLOBIN A1Con 2021 ADA RECOMMENDATION SEE BELOW Normal [facility] Comment on above: Result Comment: ADA RECOMMENDED LIMIT 4.0 - 6.0 ADA THERAPEUTIC TARGET < 7.0 ACTION SUGGESTED > 7.0 Performed By: #### A 1C #### [facility] [address] [place] [address] Dr. Karena Montero Glucose [Mass/Vol] 258 mg/dL Normal [facility] Comment on above: Performed By: #### A 1C #### [facility] [address] [place] [address] Dr. Karena Montero HbA1c (Bld) [Mass fraction] 10.6 % Critically high 4.5-6.2 [facility] Comment on above: Performed By: #### A 1C #### [facility] [address] [place], [place] [address] Dr. Karena Montero LIPID PROFILEon 01-29-2022 CHOL-HDL RATIO NORM SEE BELOW Normal [facility] Comment on above: Result Comment: 3.3 - 4.4 LOW RISK 4.4 - 7.1 AVERAGE RISK 7.1 - 11.0 MODERATE RISK >11.0 HIGH RISK Performed By: #### M RUBY #### [facility] [address] [place], [place] [address] Dr. Karena Montero Cholesterol [Mass/Vol] 160 mg/dL Normal <=200 [facility] Comment on above: Performed By: #### M RUBY #### [facility] [address] [place], [place] [address] Dr. Karena Montero Cholesterol in HDL [Mass/Vol] 60 mg/dL Normal 40-60 [facility] Comment on above: Performed By: #### M RUBY #### [facility] [address] [place], [place] [address] Dr. Karena Montero Cholesterol in LDL [Mass/Vol] 83.0 mg/dL Normal [facility] Comment on above: Performed By: #### M RUBY #### [facility] [address] [place], [place] [address] Dr. Karena Montero Cholesterol.total/C holesterol in HDL [Mass ratio] 2.7 {ratio} Normal [facility] Comment on above: Performed By: #### M RUBY #### [facility] [address] [place], [place] [address] Dr. Karena Montero HDL NORMAL > or = 60 mg/dl - LO W CARDIOVASCULAR RISK <40 mg/dl - HIGH CARDIOVASCULAR RISK Normal [facility] Comment on above: Performed By: #### M RUBY #### [facility] [address] [place], [place] [address] Dr. Karena Montero LDL CALC NORMAL SEE BELOW Normal [facility] Comment on above: Result Comment: <100 mg/dl OPTIMAL 100 - 129 mg/dl NEAR OR ABOVE OPTIMAL 130 - 159 mg/dl BORDERLINE HIGH 160 - 189 mg/dl HIGH >190 mg/dl VERY HIGH Performed By: #### M RUBY #### [facility] [address] [place] [address] Dr. Karena Montero Triglyceride [Mass/Vol] 85 mg/dL Normal <=150 [facility] Comment on above: Performed By: #### M RUBY #### [facility] [address] [address] [address] Karena Montero VLDL CALC 17.0 mg/dL Normal [facility] Comment on above: Performed By: #### M RUBY #### [facility] [address] [address] [address] Karena Montero PROF 14(COMP METB)on 022 Albumin [Mass/Vol] 3.3 g/dL Critically low 3.4-5.0 [facility] [place] Comment on above: Performed By: #### M RUBY #### [facility] [address] [place] [address] Dr. Karena Montero Albumin/Globulin [Mass ratio] 0.8 {ratio} Normal [facility] Comment on above: Performed By: #### M RUBY #### [facility] [address] [place] [address] Dr. Karena Montero ALP [Catalytic activity/Vol] 47 U/L Normal 46-116 [facility] Comment on above: Performed By: #### M RUBY #### [facility] [address] [place] [address] Dr. Karena Montero ALT [Catalytic activity/Vol] 39 U/L Normal 14-59 [facility] Comment on above: Performed By: #### M RUBY #### [facility] [address] [place] [address] Dr. Karena Montero Anion gap [Moles/Vol] 14.2 mmol/L Normal [facility] Comment on above: Performed By: #### M RUBY #### [facility] [address] [place] [address] Dr. Karena Montero AST [Catalytic activity/Vol] 38 U/L Critically high 15-37 [facility] Comment on above: Performed By: #### M RUBY #### [facility] [address] [address] [address] Karena Montero Bilirubin [Mass/Vol] 0.9 mg/dL Normal 0.2-1.0 [facility] Comment on above: Performed By: #### M RUBY #### [facility] [address] [address] [address] Karena Montero Calcium [Mass/Vol] 10.2 mg/dL Critically high 8.5-10.1 [facility] Comment on above: Performed By: #### M RUBY #### [facility] [address] [address] [address] Karena Montero Chloride [Moles/Vol] 99 mmol/L Normal 98-107 [facility] Comment on above: Performed By: #### M RUBY #### [facility] [address] [place] [address] Dr. Karena Montero CO2 [Moles/Vol] 28.5 mmol/L Normal 21.0-32.0 [facility] Comment on above: Performed By: #### M RUBY #### [facility] [address] [place] [address] Dr. Karena Montero Creatinine [Mass/Vol] 0.97 mg/dL Normal 0.55-1.02 [facility] Comment on above: Performed By: #### M RUBY #### [facility] [address] [address] [address] Karena Montero EGFR-AF BURMESE >60 Normal >=60 [facility] Comment on above: Performed By: #### M RUBY #### [facility] [address] [address] [address] Karena Motnero EGFR-NON AF BURMESE 60 mL/min/1.73m2 Normal >=60 [facility] Comment on above: Performed By: #### M RUBY #### [facility] [address] [place] [address] Dr. Karena Montero Globulin (S) [Mass/Vol] 4.3 g/dL Normal [facility] Comment on above: Performed By: #### M RUBY #### [facility] [address] [address] [address] Karena Montero Glucose [Mass/Vol] 303 mg/dL Critically high 74-106 [facility] Comment on above: Performed By: #### M RUBY #### [facility] [address] [address] [address] Karena Montero Potassium [Moles/Vol] 3.7 mmol/L Normal 3.5-5.1 [facility] Comment on above: Performed By: #### M RUBY #### [facility] [address] [address] [address] Karena Montero Protein [Mass/Vol] 7.6 g/dL Normal 6.4-8.2 [facility] Comment on above: Performed By: #### M RUBY #### [facility] [address] [place] [address] Dr. Karena Montero Sodium [Moles/Vol] 138 mmol/L Normal 136-145 [facility] Comment on above: Performed By: #### M RUBY #### [facility] [address] [place] [address] Dr. Karena Montero Urea nitrogen [Mass/Vol] 13.0 mg/dL Normal 7.0-18.0 [facility] Comment on above: Performed By: #### M RUBY #### [facility] [address] [place] [address] Dr. Karena Montero Urea nitrogen/Creatinine [Mass ratio] 13.4 mg/mg Normal [facility] Comment on above: Performed By: #### M RUBY #### [facility] [address] [address] [address] Karena Montero TSHon 01-29-2022 TSH 6.250 uIU/mL Critically high 0.358-3.740 [facility] Comment on above: Performed By: #### T 4, TSH #### [facility] [address] [place] [address] Dr. Karena Montero UA RANDOM W/MICROSCOPICon BACTERIA NONE SEEN Normal NONE SEEN [facility] Comment on above: Performed By: #### U AMIC #### [facility] [address] [address] [address] Karena Montero Bilirubin Ql (U) Negative Normal NEGATIVE [facility] Comment on above: Performed By: #### U AMIC #### [facility] [address] [address] [address] Karena Montero CAST NONE SEEN Normal NONE SEEN [facility] Comment on above: Performed By: #### U AMIC #### [facility] [address] [address] [address] Karena Montero Clarity (U) CLEAR Normal CLEAR [facility] Comment on above: Performed By: #### U AMIC #### [facility] [address] [address] [address] Karena Montero Color (U) YELLOW Normal YELLOW [facility] Comment on above: Performed By: #### U AMIC #### [facility] [address] [address] [address] Karena Montero Crystals LM Nom (Urine sed) NONE SEEN Normal NONE SEEN [facility] Comment on above: Performed By: #### U AMIC #### [facility] [address] [address] [address] Karena Montero Epithelial cells LM Ql (Urine sed) MODERATE Abnormal NONE SEEN /RARE [facility] Comment on above: Performed By: #### U AMIC #### [facility] [address] [address] [address] Karena Montero Glucose Ql (U) Negative Normal NEGATIVE [facility] Comment on above: Performed By: #### U AMIC #### [facility] [address] [address] [address] Karena Montero Hemoglobin Ql (U) Negative Normal NEGATIVE [facility] Comment on above: Performed By: #### U AMIC #### [facility] [address] [address] [address] Karena Montero Ketones Ql (U) Negative Normal NEGATIVE [facility] Comment on above: Performed By: #### U AMIC #### [facility] [address] [address] [address] Karena Montero LEUKOCYTES Negative Normal NEGATIVE [facility] Comment on above: Performed By: #### U AMIC #### [facility] [address] [address] [address] Karena Montero MUCOUS NONE SEEN Normal NONE SEEN [facility] Comment on above: Performed By: #### U AMIC #### [facility] [address] [address] [address] Karena Montero Nitrite Ql (U) Negative Normal NEGATIVE [facility] Comment on above: Performed By: #### U AMIC #### [facility] [address] [address] [address] Karena Montero pH (U) 5.5 [pH] Normal 5-9 [facility] Comment on above: Performed By: #### U AMIC #### [facility] [address] [place] [address] Dr. Karena Montero RBC 0-2 Normal 0-2 [facility] Comment on above: Performed By: #### U AMIC #### [facility] [address] [place] [address] Dr. Karena Montero SPEC GRAVITY >=1.030 Abnormal 1.005-<=1.025 [facility] Comment on above: Performed By: #### U AMIC #### [facility] [address] [place] [address] Dr. Karena Montero UA PROTEIN TRACE Normal NEGATIVE/ TRACE [facility] Comment on above: Performed By: #### U AMIC #### [facility] [address] [place] [address] Dr. Karena Montero Urobilinogen Qn (U) 1.0 {Emily'U}/dL Normal 0.2 - 1. 0 [facility] Comment on above: Performed By: #### U AMIC #### [facility] [address] [place] [address] Dr. Karena Montero WBC 0-2 Abnormal NONE SEEN [facility] Comment on above: Performed By: #### U AMIC #### [facility] [facility] [address] [address] [address] Karena Montero Vital Signs Date Time Vital Sign Value Performing Clinician Facility 01-22-2025 15:25-0400 Body mass index (BMI) [Ratio] 47.55 kg/m2 Rita Pulliam CNM Work Phone: [facility] 01-22-2025 15:25-0400 Body weight 125.65 kg Rita Pulliam CNM Work Phone: [facility] 01-22-2025 15:25-0400 Diastolic blood pressure 70 mm[Hg] Rita Pulliam CNM Work Phone: [facility] 01-22-2025 15:25-0400 Systolic blood pressure 120 mm[Hg] Rita Pulliam CNM Work Phone: [facility] 11-13-2024 15:15-0400 Body mass index (BMI) [Ratio] 49.57 kg/m2 Katalina Dennysz TRACTOR TRAILER [employer] Work Phone: [facility] 11-13-2024 15:15-0400 Body temperature 98.49 [degF] Katalina Aichholz TRACTOR TRAILER [employer] Work Phone: [facility] 11-13-2024 15:15-0400 Body weight 131 kg Katalina Aichholz TRACTOR TRAILER [employer] Work Phone: [facility] 11-13-2024 15:15-0400 Diastolic blood pressure 78 mm[Hg] Katalina Aichholz TRACTOR TRAILER [employer] Work Phone: [facility] 11-13-2024 15:15-0400 Heart rate 90 /min Katalina Aichholz TRACTOR TRAILER [employer] Work Phone: [facility] 11-13-2024 15:15-0400 Respiratory rate 22 /min Katalina Aichholz TRACTOR TRAILER [employer] Work Phone: [facility] 11-13-2024 15:15-0400 SaO2% (BldA) [Mass fraction] 99 % Katalina Aichholz TRACTOR TRAILER [employer] Work Phone: [facility] 11-13-2024 15:15-0400 Systolic blood pressure 130 mm[Hg] Katalina Colbert TRACTOR TRAILER [employer] Work Phone: [facility] 08-13-2024 14:12-0400 Body height 162.6 cm Katalina Colbert TRACTOR TRAILER [employer] Work Phone: [facility] 08-13-2024 14:12-0400 Body mass index (BMI) [Ratio] 50.19 kg/m2 Katalina Colbert TRACTOR TRAILER [employer] Work Phone: [facility] 08-13-2024 14:12-0400 Body temperature 98.4 [degF] Katalina Colbert TRACTOR TRAILER [employer] Work Phone: [facility] 08-13-2024 14:12-0400 Body weight 132.63 kg Katalina Colbert TRACTOR TRAILER [employer] Work Phone: [facility] 08-13-2024 14:12-0400 Diastolic blood pressure 72 mm[Hg] Katalina Colbert TRACTOR TRAILER [employer] Work Phone: [facility] 08-13-2024 14:12-0400 Heart rate 92 /min Katalina Noyolaz TRACTOR TRAILER [employer] Work Phone: [facility] 08-13-2024 14:12-0400 Respiratory rate 22 /min Katalina Colbert TRACTOR TRAILER [employer] Work Phone: [facility] 08-13-2024 14:12-0400 SaO2% (BldA) [Mass fraction] 95 % Katalina Colbert TRACTOR TRAILER [employer] Work Phone: [facility] 08-13-2024 14:12-0400 Systolic blood pressure 120 mm[Hg] Katalina Noyolaz TRACTOR TRAILER [employer] Work Phone: [facility] 07-13-2024 10:41-0500 Body height 162.6 cm Sarah Khan MD Work Phone: [facility] 07-13-2024 10:41-0500 Body mass index (BMI) [Ratio] 50.12 kg/m2 Sarah Khan MD Work Phone: [facility] 07-13-2024 10:41-0500 Body weight 132.45 kg Sarah Khan MD Work Phone: [facility] 07-13-2024 10:41-0500 Diastolic blood pressure 90 mm[Hg] Sarah Khan MD Work Phone: [facility] 07-13-2024 10:41-0500 Heart rate 109 /min Sarah Khan MD Work Phone: [facility] 07-13-2024 10:41-0500 Respiratory rate 18 /min Sarah Khan MD Work Phone: [facility] 07-13-2024 10:41-0500 SaO2% (BldA) [Mass fraction] 97 % Sarah Khan MD Work Phone: [facility] 07-13-2024 10:41-0500 Systolic blood pressure 180 mm[Hg] Sarah Khan MD Work Phone: [facility] 05-09-2024 13:36-0500 Diastolic blood pressure 84 mm[Hg] Katalina Colbert TRACTOR TRAILER [employer] Work Phone: [facility] 05-09-2024 13:36-0500 Systolic blood pressure 138 mm[Hg] Katalina Colbert TRACTOR TRAILER [employer] Work Phone: [facility] 05-09-2024 13:07-0500 Body height 162.6 cm Katalina Colbert TRACTOR TRAILER [employer] Work Phone: [facility] 05-09-2024 13:07-0500 Body mass index (BMI) [Ratio] 50.29 kg/m2 Katalina Colbert TRACTOR TRAILER [employer] Work Phone: [facility] 05-09-2024 13:07-0500 Body temperature 97.59 [degF] Katalina Colbert TRACTOR TRAILER [employer] Work Phone: [facility] 05-09-2024 13:07-0500 Body weight 132.9 kg Katalina Colbert TRACTOR TRAILER [employer] Work Phone: [facility] 05-09-2024 13:07-0500 Heart rate 93 /min Katalina Filemon TRACTOR TRAILER [employer] Work Phone: [facility] 05-09-2024 13:07-0500 Respiratory rate 22 /min Katalina Filemon TRACTOR TRAILER [employer] Work Phone: [facility] 05-09-2024 13:07-0500 SaO2% (BldA) [Mass fraction] 99 % Katalina Filemon TRACTOR TRAILER [employer] Work Phone: [facility] 03-08-2024 11:27-0400 Body height 162.6 cm Sarah Khan MD Work Phone: [facility] 03-08-2024 11:27-0400 Body mass index (BMI) [Ratio] 50.46 kg/m2 Sarah Khan MD Work Phone: [facility] 03-08-2024 11:27-0400 Body weight 133.36 kg Sarah Khan MD Work Phone: [facility] 03-08-2024 11:27-0400 Heart rate 87 /min Sarah Khan MD Work Phone: [facility] Comment on above: O2 SAT 98% 03-08-2024 11:27-0400 Respiratory rate 20 /min Sarah Khan MD Work Phone: [facility] 02-08-2024 14:11-0400 Body height 162.6 cm Katalina Filemon TRACTOR TRAILER [employer] Work Phone: [facility] 02-08-2024 14:11-0400 Body mass index (BMI) [Ratio] 51.36 kg/m2 Katalina Filemon TRACTOR TRAILER [employer] Work Phone: [facility] 02-08-2024 14:11-0400 Body temperature 97.5 [degF] Katalina Filemon TRACTOR TRAILER [employer] Work Phone: [facility] 02-08-2024 14:11-0400 Body weight 135.72 kg Katalina Filemon TRACTOR TRAILER [employer] Work Phone: [facility] 02-08-2024 14:11-0400 Diastolic blood pressure 72 mm[Hg] Katalina Noyolaz TRACTOR TRAILER [employer] Work Phone: [facility] 02-08-2024 14:11-0400 Heart rate 87 /min Katalina Noyolaz TRACTOR TRAILER [employer] Work Phone: [facility] 02-08-2024 14:11-0400 Respiratory rate 21 /min Katalina Noyolaz TRACTOR TRAILER [employer] Work Phone: [facility] 02-08-2024 14:11-0400 SaO2% (BldA) [Mass fraction] 96 % Katalina Noyolaz TRACTOR TRAILER [employer] Work Phone: [facility] 02-08-2024 14:11-0400 Systolic blood pressure 126 mm[Hg] Katalina Noyolaz TRACTOR TRAILER [employer] Work Phone: [facility] 09-13-2023 10:18-0400 Body height 165.1 cm Ramonita Phillips YARD SUPERVISOR [employer]IST Work Phone: [facility] 09-13-2023 10:18-0400 Body mass index (BMI) [Ratio] 49.29 kg/m2 Ramonita Phillips [employer]ARD SUPER[employer] SPECIALIST Work Phone: [facility] 09-13-2023 10:18-0400 Body weight 134.35 kg Ramonitaherlinda Phillips YARD SUPERVISOR [employer] SPECIALIST Work Phone: [facility] Encounters Encounter Date Encounter Type Care Provider Facility Start: 01-30-2025 End: 01-30-2025 Clinisync Result Encounter Katalina Colbert TRACTOR TRAILER [employer] Work Phone: [facility] External Department Unsolicited Start: 01-30-2025 End: 01-30-2025 Clinisync Result Encounter Katalina Colbert TRACTOR TRAILER [employer] Work Phone: [facility] External Department Unsolicited Start: 01-22-2025 End: 01-22-2025 Office outpatient visit 15 minutes Rita Pulliam CNM Work Phone: [facility] Comment on above: Hot flashes (Primary Dx) Start: 01-22-2025 End: 01-22-2025 ambulatory RITA PULLIAM Not Available Start: 01-22-2025 End: 01-22-2025 Bamboo flowsheet Rita Coxo CNM Work Phone: [facility] Start: 01-22-2025 End: 01-22-2025 Bamboo flowsheet Rita Coxo CNM Work Phone: [facility] Start: 01-14-2025 End: 01-15-[address] [facility] Start: 01-13-2025 End: 01-13-2025 Orders Only Katalina Dennysz TRACTOR TRAILER [employer] Work Phone: [facility] Comment on above: Abnormal stress test (Primary Dx) Start: 01-11-2025 End: 01-11-2025 Clinisync Result Encounter Katalina Dennysz TRACTOR TRAILER [employer] Work Phone: [facility] External Department Unsolicited Start: 01-11-2025 End: 01-11-2025 Clinisync Result Encounter Katalina Aichholz TRACTOR TRAILER [employer] Work Phone: [facility] External Department Unsolicited Start: 01-09-2025 End: 01-09-2025 Refill Katalina Aichholz TRACTOR TRAILER [employer] Work Phone: [facility] Comment on above: Mixed hyperlipidemia ; Other chronic pain; Allergic rhinitis, unspecified seasonality, unspecified trigger Start: 01-08-2025 End: 01-08-2025 Refill Katalina Aichholz TRACTOR TRAILER [employer] Work Phone: [facility] Comment on above: Essential hypertensi on ; Bilateral lower extremity edema; Uncontrolled type 2 diabetes mellitus with hyperglycemia, with long-term current use of insulin (HCC); Chronic pain syndrome; Anxiety and depression Start: 12-21-2024 End: 12-23-2024 Refill Katalina Aichholz TRACTOR TRAILER [employer] Work Phone: [facility] Comment on above: Uncontrolled type 2 diabetes mellitus with hyperglycemia, with long-term current use of insulin ([facility]) Start: 12-12-2024 End: 12-12-2024 Telephone encounter Katalina Colbert TRACTOR TRAILER [employer] Work Phone: [facility] Start: 12-11-2024 End: 12-11-2024 ambulatory RITA PULLIAM Not Available Start: 12-04-2024 End: 12-05-2024 Refill Katalinajamie Colbert TRACTOR TRAILER [employer]IVER Work Phone: [facility] Comment on above: Essential hypertensi on Start: 11-23-2024 End: 11-23-2024 Refill Zion Pringle MD Work Phone: [facility] Comment on above: Refill Request Start: 11-22-2024 End: 11-22-2024 Telephone encounter Zion Pringle MD Work Phone: [facility] Comment on above: Results; Future Appo intment Start: 11-21-2024 End: 11-21-2024 Telemedicine consultation with patient Zoin Pringle MD Work Phone: [facility] Start: 11-21-2024 End: 11-21-2024 ambulatory Zion Pringle MD Work Phone: [facility] Comment on above: History of thyroid c ancer (Primary Dx) Start: 11-13-2024 End: 11-13-2024 ambulatory KATALINA FILEMON Not Available Start: 11-13-2024 End: 11-13-2024 Office outpatient visit 25 minutes Katalina Colbert TRACTOR TRAILER [employer]IVER Work Phone: [facility] Comment on above: Chest pain of unknow n etiology (Primary Dx); Essential hypertension (CMS/HCC); KARINE (obstructive sleep apnea); Class 3 severe obesity due to excess calories with serious comorbidity and body mass index (BMI) of 50.0 to 59.9 in adult; Uncontrolled type 2 diabetes mellitus with hyperglycemia, with long-term current use of insulin (CMS/HCC) Start: 11-13-2024 End: 11-13-2024 Bamboo flowsheet Katalina Aichholz TRACTOR TRAILER [employer] Work Phone: [facility] Start: 11-13-2024 End: 11-13-2024 Bamboo flowsheet Katalina Aichholz TRACTOR TRAILER [employer] Work Phone: [facility] Start: 11-13-2024 End: 11-15-2024 Telephone encounter Zion Pringle MD Work Phone: [facility] Comment on above: Results; Patient Upd ate; Future Appointment Start: 11-08-2024 ambulatory G ANTHONY Silva ity:[facility] Start: 11-05-2024 End: 11-05-2024 Refill Katalina Aichholz TRACTOR TRAILER [employer] Work Phone: [facility] Comment on above: Hidradenitis suppura tiva of multiple sites (Primary Dx) Start: 11-03-2024 End: 11-03-2024 Refill Katalina Aichholz TRACTOR TRAILER [employer] Work Phone: [facility] Comment on above: Mixed hyperlipidemia (CMS/HCC) Start: 11-02-2024 End: 11-02-2024 Clinisync Result Encounter Katalina Aichholz TRACTOR TRAILER [employer] Work Phone: [facility] External Department Unsolicited Start: 11-02-2024 End: 11-02-2024 Clinisync Result Encounter Katalina Aichholz TRACTOR TRAILER [employer]IVER Work Phone: [facility] External Department Unsolicited Start: 10-14-2024 End: 10-14-2024 Refill Katalina Aichholz TRACTOR TRAILER [employer] Work Phone: [facility] Comment on above: Vitamin D deficiency , unspecified Start: 09-15-2024 End: 09-17-2024 Refill Katalina Aichholz TRACTOR TRAILER [employer] Work Phone: [facility] Comment on above: Uncontrolled type 2 diabetes mellitus with hyperglycemia, with long-term current use of insulin (CMS/HCC) (Primary Dx) Start: 09-07-2024 End: 09-07-2024 Telephone encounter Sarah Khan MD Work Phone: [facility] Comment on above: Med Refill Start: 09-05-2024 End: 09-05-2024 Refill Katalina Aicrashadholz TRACTOR TRAILER [employer]IVER Work Phone: [facility] Comment on above: Essential hypertensi on (CMS/HCC) Start: 08-13-2024 End: 08-13-2024 ambulatory KATALINA AICHHOLZ Not Available Start: 08-13-2024 End: 08-13-2024 Office outpatient visit 25 minutes Katalina Aichholz TRACTOR TRAILER [employer] Work Phone: [facility] Comment on above: Anxiety and [...] Appointment Start: 07-16-2024 End: 07-17-2024 Refill Katalina Aichholz TRACTOR TRAILER [employer]IVER Work Phone: [facility] Comment on above: Essential hypertensi on (CMS/HCC); Bilateral lower extremity edema Start: 07-13-2024 End: 07-13-2024 Bamboo flowsheet Sarah Khan MD Work Phone: [facility] Start: 07-13-2024 End: 07-13-2024 Bamboo flowsheet Sarah Khan MD Work Phone: [facility] Start: 07-13-2024 End: 07-13-2024 Office outpatient visit 25 minutes Sarah Khan MD Work Phone: [facility] Comment on above: Type 2 diabetes didier itus with hyperglycemia, with long-term current use of insulin ([facility]) (Primary Dx); Insulin long-term use ([facility]); Hyperlipemia, mixed ([facility]); Vitamin D deficiency; Encounter for dietary consultation; Class 3 severe obesity with serious comorbidity and body mass index (BMI) of 50.0 to 59.9 in adult, unspecified obesity type ([facility]) Start: 07-13-2024 End: 07-13-2024 ambulatory SARAH KHAN Not Available Start: 06-13-2024 End: 06-13-2024 Refill G Anthony Pringle MD Work Phone: [facility] Comment on above: Refill Request Start: 06-12-2024 End: 06-12-2024 Clinisync Result Encounter Generic External Data Provider [facility] External Department Unsolicited Start: 06-12-2024 End: 06-12-2024 Clinisync Result Encounter Generic External Data Provider [facility] External Department Unsolicited Start: 05-12-2024 End: 05-13-2024 Refill Katalina Filemon TRACTOR TRAILER [employer] Work Phone: [facility] Comment on above: Chronic pain syndrom e Start: 05-09-2024 End: 05-09-2024 Bamboo flowsheet Katalina Aicrashadholz TRACTOR TRAILER [employer]IVER Work Phone: [facility] Start: 05-09-2024 End: 05-09-2024 Bamboo flowsheet Katalina Aichayleez TRACTOR TRAILER [employer] Work Phone: [facility] Start: 05-09-2024 End: 05-09-2024 ambulatory KATALINA AICHHOLZ Not Available Start: 05-09-2024 End: 05-09-2024 Office outpatient visit 25 minutes Katalina Colbert TRACTOR TRAILER [employer]IVER Work Phone: [facility] Comment on above: Essential hypertensi on ([facility]) (Primary Dx); KARINE (obstructive sleep apnea); Bilateral lower extremity edema; Vitamin D deficiency; Uncontrolled type 2 diabetes mellitus with hyperglycemia, with long-term current use of insulin ([facility]/HCC); Class 3 severe obesity due to excess calories with serious comorbidity and body mass index (BMI) of 50.0 to 59.9 in adult (CMS/HCC); Anxiety and depression (CMS/[facility]); Allergic rhinitis, unspecified seasonality, unspecified trigger; Encounter for screening mammogram for malignant neoplasm of breast; Left foot pain; Other chronic pain Start: 04-17-2024 End: 04-17-2024 Refill Paulina Perez MA [facility] Comment on above: Mixed hyperlipidemia (CMS/HCC) Start: 04-10-2024 End: 04-10-2024 Refill Katalina Colbert TRACTOR TRAIL[employer] Work Phone: [facility] Comment on above: Hidradenitis suppura tiva of multiple sites (Primary Dx) Start: 04-09-2024 End: 04-09-2024 Refill Katalina Colbert TRACTOR TRAILER [employer] Work Phone: [facility] Comment on [...] Unsolicited Start: 03-13-2024 ambulatory Zion PRINGLE Facil ity:[facility] Start: 03-08-2024 End: 03-08-2024 Bamboo flowsheet Sarah Khan MD Work Phone: [facility] Start: 03-08-2024 End: 03-08-2024 Bamboo flowsheet Sarah Khan MD Work Phone: [facility] Start: 03-08-2024 End: 03-08-2024 ambulatory SARAH KHAN Not Available Start: 03-08-2024 End: 03-08-2024 Office outpatient visit 25 minutes Sarah Khan MD Work Phone: [facility] Comment on above: Type 2 diabetes didier itus with hyperglycemia, unspecified whether penitentiary insulin use (CMS/HCC) (Primary Dx); Insulin long-term use (CMS/HCC); Hyperlipemia, mixed (CMS/HCC); Vitamin D deficiency; Encounter for dietary consultation; Class 3 severe obesity with serious comorbidity and body mass index (BMI) of 50.0 to 59.9 in adult, unspecified obesity type (CMS/HCC) Start: 03-01-2024 End: 03-01-2024 Refill Katalina Aichholz TRACTOR TRAILER [employer] Work Phone: [facility] Comment on above: Essential hypertensi on (CMS/HCC) Start: 02-27-2024 End: 03-01-2024 Telephone encounter Sarah Khan MD Work Phone: [facility] Start: 02-23-2024 End: 02-23-2024 Refill Katalina Aichholz TRACTOR TRAILER [employer] Work Phone: [facility] Comment on above: Vitamin D deficiency (Primary Dx) Start: 02-08-2024 End: 02-08-2024 Office outpatient visit 25 minutes Katalina Aichholz TRACTOR TRAILER [employer]IVER Work Phone: [facility] Comment on above: Essential hypertensi [...] Start: 01-31-2024 End: 01-31-2024 Refill Katalina Colbert TRACTOR TRAILER [employer] Work Phone: [facility] Comment on above: Anxiety and depressi on (CMS/HCC) Start: 09-30-2023 End: 09-30-2023 Telephone encounter Karena Benjamin [facility] General Surgery Start: 09-28-2023 End: 09-28-2023 Evaluation and management of inpatient LIV AZAR [facility] Start: 09-27-2023 End: 09-28-2023 Evaluation and management of inpatient LATOSHA CORBETT [facility] Start: 09-13-2023 End: 09-13-2023 ambulatory [facility] Start: 09-13-2023 End: 09-13-2023 Office outpatient new 30 minutes [facility] YARD SUPER[employer]OR [employer] SPECIALIST Work Phone: [facility] General Surgery Comment on above: Encounter for colono scopy in patient with family history of colon cancer (Primary Dx) Start: 09-05-2023 Refill Zion armstrong MD Work Phone: [facility] Comment on above: Refill Request Start: 08-04-2023 Telephone encounter Zion Pringle MD Work Phone: [facility] Comment on above: Future Appointment Start: 07-07-2023 Refill Katalina Colbert NP Work Phone: [facility] Comment on above: Acute non-recurrent [...] encounter [facility]: Appointment Confirma tion Start: 01-03-2023 Refill Michell Soto [facility] Work Phone: [facility] -[facility] Comment on [...] procedure [facility] Provider [facility] Department Start: 06-20-2022 End: 06-21-2022 ambulatory [...] PRINGLE Facility:[facility] Start: 04-27-2022 End: 04-28-2022 ambulatory SMART ENERGY SPECIALIST KATALINA FILEMON Facility:[facility] Start: 04-16-2022 Refill Zion armstrong MD Work Phone: [facility] Comment on above: Refill Request Start: 02-18-2022 End: 02-19-2022 ambulatory SMART ENERGY SPECIALIST KATALINA AICCHARISSE Facility:[facility] Start: 02-04-2022 End: 02-05-2022 ambulatory Zion Pringle MD Work Phone: [facility] Comment on above: Thyroid cancer (HCC) (Primary Dx) Start: 02-04-2022 End: 02-05-2022 Telemedicine consultation with patient Zion Pringle MD Work Phone: [facility] Start: 02-03-2022 End: 02-03-2022 ambulatory SMART ENERGY SPECIALIST KATALINAJamie COLBERT Facility:[facility] Start: 01-29-2022 End: 01-30-[address] WILLY PRINGLE Facility:[facility] Start: 11-05-2021 End: 11-05-2021 ambulatory Zion Pringle MD Work Phone: [facility] Comment on above: Thyroid cancer (HCC) (Primary Dx) Start: 11-05-2021 End: 11-05-2021 Telemedicine consultation with patient Zion Anthony Pringle MD Work Phone: [facility] Start: 10-13-2021 End: 10-13-2021 ambulatory Zion Anthony Pringle MD Work Phone: [facility] Comment on above: Thyroid cancer (HCC) (Primary Dx) Start: 10-13-2021 End: 10-13-2021 Telemedicine consultation with patient Zion Anthony Pringle MD Work Phone: [facility] Start: 05-27-2020 End: 05-27-2020 Patient encounter procedure External Provider [facility] Start: 05-27-2020 Results Only External Provider Exter nal-NonCCF Procedures Date Procedure Procedure Detail Performing Clinician Start: 01-30-2025 Radiologic exam knee complete 4/more views Katalina Colbert NP Work Phone: Start: 01-11-2025 NM LACEY PERF SPECT REST STR Katalina Colbert TRACTOR TRAILER [employer] Work Phone: Start: 11-02-2024 ALL CBC WITH AUTO DIFF Katalina Colbert TRACTOR TRAILER [employer]IVER Work Phone: Start: 07-13-2024 Gluc bld gluc [...] Work Phone: Start: 09-27-2023 Colonoscopy Katalina bardales TRACTOR TRAILER [employer] Work Phone: Start: 06-09-2023 Microscopic observat ion [Identifier] in Cervix by Cyto stain Katalina Colbert TRACTOR TRAILER [employer]IVER Work Phone: Start: 05-04-2023 Mammography Katalina Marquise bardales TRACTOR TRAILER [employer]IVER Work Phone: Start: 02-01-2022 Adult depression scr eening assessment SOFY Pringle MD Work Phone: Start: 09-28-2021 Adult depression scr eening assessment SOFY Pringle MD Work Phone: Start: 05-27-2020 End: 05-27-2020 EXTERNAL IMAGING External Provider Start: 05-27-2020 EXTERNAL CARDIOLOGY Ext ernal Provider Start: 05-27-2020 End: 05-27-2020 EXTERNAL LAB External Provider Start: 05-27-2020 EXTERNAL PROCEDURE Exte rnal Provider Start: 08-31-2018 Colonoscopy Ramonita story [employer]ARD SUPER[employer]IST Work Phone: Plan of Treatment Date Care Activity Detail Author Start: 09-26-2028 Screening for malignant neoplasm of colon [facility] Start: 07-13-2027 Diabetes Screening Diabetes Screening [facility] Start: 03-08-2027 Diabetes Screening Diabetes Screening [facility] Start: 06-09-2026 Screening for malignant neoplasm of cervix [facility] Start: 05-10-2026 Glaucoma screening Diabetes: Retinopathy Screening [facility] Start: 11-29-2025 End: 02-28-2026 Thyroglobulin and Thyrogobulin Ab panel - Serum or Plasma THYROGLOBULIN, SERUM WITH REFLEX TO IA OR LC-MS/MS Lab Routine History of thyroid cancer Expected: 11/29/2025, Expires: 02/28/2026 [facility] Comment on above: Expected: 11/29/2025, Expires: Start: 11-29-2025 End: 11-29-2025 Thyrotropin [Units/volume] in Serum or Plasma THYROID STIMULATING HORMONE Lab Routine History of thyroid cancer Expected: 11/29/2025, Expires: 11/29/2025 [facility] Work Phone: Comment on above: Expected: 11/29/2025, Expires: Start: 11-29-2025 End: 11-29-2025 Thyroxine (T4) [Mass/volume] in Serum or Plasma T4/THYROXINE Lab Routine History of thyroid cancer Expected: 11/29/2025, Expires: 11/29/2025 [facility] Comment on above: Expected: 11/29/2025, Expires: Start: 11-29-2025 End: 11-29-2025 Triiodothyronine (T3) [Mass/volume] in Serum or Plasma T3 Lab Routine History of thyroid cancer Expected: 11/29/2025, Expires: 11/29/2025 [facility] Comment on above: Expected: 11/29/2025, Expires: Start: 11-27-2025 End: 11-27-2025 Follow-up encounter 11/27/2025 4:00 PM EDT [facility] Radiation Oncology [address] [place] [address] [place] [address] Zion Pringle MD [address] [address] Follow up after recheck labs Radiation Oncology Comment on above: Follow up after recheck labs Start: 11-22-2025 End: 02-21-2026 Thyroglobulin and Thyrogobulin Ab panel - Serum or Plasma THYROGLOBULIN, SERUM WITH REFLEX TO IA OR LC-MS/MS Lab Routine History of thyroid cancer Expected: 11/22/2025 (Approximate), Expires: 02/21/2026 [facility] Comment on above: Expected: 11/22/2025 (Approximate), Expi res: 02/21/2026 Start: 11-22-2025 End: 02-21-2026 Thyrotropin [Units/volume] in Serum or Plasma THYROID STIMULATING HORMONE Lab Routine History of thyroid cancer Expected: 11/22/2025 (Approximate), Expires: 02/21/2026 [facility] Comment on above: Expected: 11/22/2025 (Approximate), Expi res: 02/21/2026 Start: 11-22-2025 End: 02-21-2026 Thyroxine (T4) [Mass/volume] in Serum or Plasma T4/THYROXINE Lab Routine History of thyroid cancer Expected: 11/22/2025 (Approximate), Expires: 02/21/2026 [facility] Work Phone: Comment on above: Expected: 11/22/2025 (Approximate), Expi res: 02/21/2026 Start: 11-21-2025 End: 11-21-2025 Patient encounter procedure 11/21/2025 11:30 AM EDT Office Visit [facility] [address] [place] [address] [place] [address] [facility] Comment on above: labs Start: 06-12-2025 Screening for malignant neoplasm of breast Mammogram [facility] Start: 05-15-2025 End: 05-15-2025 Patient encounter procedure 05/15/2025 1:00 PM EST [facility] [address] [place] [phone] Rita Pulliam CNM [address] [place] [address] [facility] Start: 02-28-2025 Glaucoma screening Diabetes: Retinopathy Screening [facility] Start: 02-05-2025 End: 02-05-2025 Patient encounter procedure 02/05/2025 11:30 AM EDT Office Visit [facility] [address] [place] [phone] Katalina Colbert, NETTIE [address] [place] [address] [facility] Start: 02-04-2025 Influenza vaccination Influenza Vaccine (#1) [facility] Start: 01-22-2025 End: 01-22-2025 Patient encounter procedure [facility] Comment on above: Arrived Start: 01-10-2025 End: 01-10-2025 Patient encounter procedure 01/10/2025 1:20 PM EDT Office Visit [facility] [address] [place] [address] Katalina Colbert, [employer] [address] [place] [phone] [facility] Start: 12-12-2024 End: 12-12-2024 Patient encounter procedure 12/12/2024 1:20 PM EDT Office Visit [facility] [address] [place] [address] Katalina Colbert, [employer] [address] [place] [phone] [facility] Start: 12-11-2024 End: 12-11-2024 Patient encounter procedure 12/11/2024 2:00 PM EDT Office Visit [facility] [address] [place] [phone] Rita Pulliam, [facility] [address] [place] [address] [facility] Start: 12-06-2024 Urine screening for protein Diabetes: Urine Protein Screening [facility] Start: 11-22-2024 End: 11-22-2024 Patient encounter procedure 11/22/2024 3:00 PM EDT Office Visit [facility] [address] [place] [phone] Rita Pulliam [facility] [address] [place] [address] [facility] Start: 11-21-2024 End: 11-21-2024 Follow-up encounter 11/21/2024 4:00 PM EDT [facility] Radiation Oncology [address] [place] [address] [place] [address] Zion Pringle MD [address] [place] [address] [place] [address] Follow up after recheck labs Radiation Oncology Comment on above: Follow up after recheck labs Start: 11-13-2024 End: 11-13-2024 Patient encounter procedure 11/13/2024 3:00 PM EDT Office Visit [facility] [address] [place] [address] Katalina Colbert, NETTIE [address] [place] [address] [facility] Start: 11-13-2024 End: 11-13-2025 Cardiac stress study Procedure STRESS TEST [facility] Imaging Routine Essential hypertension (CMS/HCC) KARINE (obstructive sleep apnea) Uncontrolled type 2 diabetes mellitus with hyperglycemia, with long-term current use of insulin (CMS/HCC) Chest pain of unknown etiology Expected: 11/13/2024 (Approximate), Expires: 11/13/2025 [facility] Work Phone: Comment on above: Expected: 11/13/2024 (Approximate), Expi res: 11/13/2025 Start: 11-13-2024 End: 11-13-2026 Echocardiogram 2D complete Echocardiogram 2D complete Echocardiography Routine Essential hypertension (CMS/HCC) KARINE (obstructive sleep apnea) Uncontrolled type 2 diabetes mellitus with hyperglycemia, with long-term current use of insulin (CMS/HCC) Chest pain of unknown etiology Expected: 11/13/2024 (Approximate), Expires: 11/13/2026 [facility] Comment on above: Expected: 11/13/2024 (Approximate), Expi res: 11/13/2026 Start: 11-08-2024 End: 11-08-2024 Patient encounter procedure 11/08/2024 11:20 AM EDT Office Visit [facility] [address] [place] [address] Sarah Khan MD [address] [place] [address] [facility] Start: 11-01-2024 End: 11-01-2024 Follow-up encounter 11/01/2024 2:30 PM EDT [facility]iation Oncology [address] [place] [address] [place] [address] [place] [address] [place] [address] Follow up after recheck labs Radiation Oncology Comment on above: Follow up after recheck labs Start: 10-21-2024 End: 01-20-2025 Thyroglobulin and Thyrogobulin Ab panel - Serum or Plasma THYROGLOBULIN, SERUM WITH REFLEX TO IA OR LC-MS/MS Lab Routine History of thyroid cancer Expected: 10/21/2024 (Approximate), Expires: 01/20/2025 [facility] Comment on above: Expected: 10/21/2024 (Approximate), Expi res: 01/20/2025 Start: 10-21-2024 End: 01-20-2025 Thyrotropin [Units/volume] in Serum or Plasma THYROID STIMULATING HORMONE Lab Routine History of thyroid cancer Expected: 10/21/2024 (Approximate), Expires: 01/20/2025 [facility] Comment on above: Expected: 10/21/2024 (Approximate), Expi res: 01/20/2025 Start: 10-21-2024 End: 01-20-2025 Thyroxine (T4) [Mass/volume] in Serum or Plasma T4/THYROXINE Lab Routine History of thyroid cancer Expected: 10/21/2024 (Approximate), Expires: 01/20/2025 [facility] Work Phone: Comment on above: Expected: 10/21/2024 (Approximate), Expi res: 01/20/2025 Start: 10-10-2024 Hemoglobin A1c measurement Diabetes: Hemoglobin A1C [facility] Start: 09-26-2024 Adult BMI Screening Adult BMI Screening [facility] Start: 09-26-2024 Tobacco Screening Tobacco Screening [facility] Start: 09-12-2024 Adult BMI Screening Adult BMI Screening [facility] Start: 09-12-2024 Tobacco Screening Tobacco Screening [facility] Start: 08-13-2024 End: 08-13-2025 CBC W Auto Differential panel - Blood CBC and differential Lab Routine Uncontrolled type 2 diabetes mellitus with hyperglycemia, with long-term current use of insulin (CMS/HCC) Expected: 08/13/2024 (Approximate), Expires: 08/13/2025 [facility] Work Phone: Comment on above: Expected: 08/13/2024 (Approximate), Expi res: 08/13/2025 Start: 08-13-2024 End: 08-13-2025 Comprehensive metabolic 2000 panel - Serum or Plasma Comprehensive metabolic panel Lab Routine Essential hypertension (CMS/HCC) Uncontrolled type 2 diabetes mellitus with hyperglycemia, with long-term current use of insulin (CMS/HCC) Expected: 08/13/2024 (Approximate), Expires: 08/13/2025 [facility] Comment on above: Expected: 08/13/2024 (Approximate), Expi res: 08/13/2025 Start: 08-13-2024 End: 08-13-2025 Microalbumin/Creatinine panel in random Urine Microalbumin / creatinine, urine ratio Lab Routine Essential hypertension ([facility]) Uncontrolled type 2 diabetes mellitus with hyperglycemia, with long-term current use of insulin (CMS/HCC) Expected: 08/13/2024 (Approximate), Expires: 08/13/2025 [facility] Comment on above: Expected: 08/13/2024 (Approximate), Expi res: 08/13/2025 Start: 08-13-2024 End: 08-13-2024 Patient encounter procedure 08/13/2024 2:00 PM EDT Office Visit [facility] [address] [place] [phone] Katalina Colbert NP [address] [place] [phone] [facility] Start: 08-13-2024 End: 08-13-2025 Urinalysis complete panel - Urine Urinalysis with reflex microscopic (clean catch) Lab Routine Essential hypertension ([facility]/HCC) Uncontrolled type 2 diabetes mellitus with hyperglycemia, with long-term current use of insulin (CMS/HCC) Expected: 08/13/2024 (Approximate), Expires: 08/13/2025 [facility] Comment on above: Expected: 08/13/2024 (Approximate), Expi res: 08/13/2025 Start: 07-25-2024 End: 07-25-2024 Follow-up encounter Radiation Oncology Comment on above: Follow up after recheck labs Start: 07-23-2024 End: 10-22-2024 Thyroglobulin and Thyrogobulin Ab panel - Serum or Plasma THYROGLOBULIN, SERUM WITH REFLEX TO IA OR LC-MS/MS Lab Routine History of thyroid cancer Expected: 07/23/2024 (Approximate), Expires: 10/22/2024 [facility] Comment on above: Expected: 07/23/2024 (Approximate), Expi res: 10/22/2024 Start: 07-23-2024 End: 10-22-2024 Thyrotropin [Units/volume] in Serum or Plasma THYROID STIMULATING HORMONE Lab Routine History of thyroid cancer Expected: 07/23/2024 (Approximate), Expires: 10/22/2024 [facility] Comment on above: Expected: 07/23/2024 (Approximate), Expi res: 10/22/2024 Start: 07-23-2024 End: 10-22-2024 Thyroxine (T4) [Mass/volume] in Serum or Plasma T4/THYROXINE Lab Routine History of thyroid cancer Expected: 07/23/2024 (Approximate), Expires: 10/22/2024 [facility] Work Phone: Comment on above: Expected: 07/23/2024 (Approximate), Expi res: 10/22/2024 Start: 07-13-2024 End: 07-13-2024 Patient encounter procedure 07/13/2024 10:50 AM EST Office Visit [facility] [address] [place] [address] Sarah Khan MD [address], [address] [place] [address] [facility] Comment on above: Arrived Start: 07-12-2024 End: 07-12-2024 Patient encounter procedure 07/12/2024 11:20 AM EST Office Visit [facility] [address] [place] [address] Sarah Khan MD [address], [address] [place] [address] [facility] Start: 06-08-2024 Hemoglobin A1c measurement Diabetes: Hemoglobin A1C [facility] Start: 05-09-2024 End: 07-10-2025 MG Breast - bilateral Screening Bilateral screening mammogram Imaging Routine Encounter for screening mammogram for malignant neoplasm of breast Expected: 05/09/2024 (Approximate), Expires: 07/10/2025 [facility] Work Phone: Comment on above: Expected: 05/09/2024 (Approximate), Expi res: 07/10/2025 Start: 05-09-2024 End: 05-09-2024 Patient encounter procedure 05/09/2024 1:00 PM EST Office Visit [facility] [address] [place] [phone] Katalina Colbert NP [address] [place] [address] [facility] Start: 05-04-2024 Screening for malignant neoplasm of breast Mammogram [facility] Start: 04-20-2024 Shingrix Vaccine (2 of 2) Shingrix Vaccine (2 of 2) [facility] Start: 04-05-2024 Influenza vaccination Influenza Vaccine (#1) [facility] Comment on above: Postponed from 02/05/2024 (Patient Does Not Have Time) Start: 03-13-2024 End: 03-13-2024 Follow-up encounter 03/13/2024 3:15 PM EDT [facility] Radiation Oncology [address] [place] [address] Zion Pringle MD [address] [place] [address] 4 Month Follow UP Radiation Oncology Comment on above: 4 Month Follow UP Start: 03-07-2024 End: 03-07-2024 Patient encounter procedure 03/07/2024 11:20 AM EDT Office Visit [facility] [address] [place] [address] Sarah Khan MD [address] [place] [address] [facility] Start: 02-11-2024 DIABETES SCREEN DIABETES SCREEN [facility] Start: 02-11-2024 Diabetes Screening Diabetes Screening [facility] Start: 02-08-2024 End: 02-08-2024 Patient encounter procedure 02/08/2024 2:00 PM EDT Office Visit [facility] [address] [place] [phone] Katalina Colbert NP [address] [place] [phone] [facility] Start: 02-07-2024 Hemoglobin A1c measurement Diabetes: Hemoglobin A1C [facility] Start: 02-05-2024 Covid-19 Vaccine ( season) Covid-19 Vaccine ( season) [facility] Start: 02-05-2024 Covid-19 Vaccine ( season) Covid-19 Vaccine ( season) [facility] Start: 02-05-2024 Influenza vaccination [facility] Start: 10-06-2023 End: 10-06-2023 Admission to same day surgery center 10/06/2023 8:00 AM EDT - 10/06/2023 8:30 AM EDT Surgery [facility] Surgery [address] [place] [phone] Latosha Corbett DO [address] [place] [address] COLONOSCOPY DIAGNOSTIC / SCREENING [87217 (CPT )] [facility] Comment on above: COLONOSCOPY DIAGNOSTIC / SCREENING [4536 8 (CPT )] Start: 10-06-2023 End: 10-06-2023 Colonoscopy flx dx w/collj spec when pfrmd COLONOSCOPY DIAGNOSTIC / SCREENING Family history of colon cancer 10/06/2023 8:00 AM EDT [facility] Start: 10-06-2023 Subsequent hospital visit by physician 10/06/2023 8:00 AM EDT Hospital Encounter [facility] [address] [place] [address] Latosha Corbett DO [facility] [place] [address] [facility] Start: 09-29-2023 End: 09-29-2023 ambulatory 09/29/2023 3:10 PM EDT Support Visit [facility] Admit [address] [place] [address] [facility] - Pre Admit Start: 09-08-2023 End: 09-08-2023 Patient encounter procedure 09/08/2023 6:00 PM EDT Office Visit [facility] [address] [place] [address] Katalina Colbert, NETTIE [address] [place] [address] [facility] Start: 09-01-2023 Screening for malignant neoplasm of colon Colonoscopy [facility] Start: 08-22-2023 Screening for malignant neoplasm of colon [facility] Start: 08-09-2023 Influenza vaccination Influenza Vaccine (#1) [facility] Comment on above: Postponed from 02/04/2023 (Other Patient Reasons) Start: 07-25-2023 End: 10-24-2023 THYROGLOBULIN BY MASS SPECTROMETRY THYROGLOBULIN BY MASS SPECTROMETRY Lab Routine History of thyroid cancer Expected: 07/25/2023, Expires: 10/24/2023 [facility] Work Phone: Comment on above: Expected: 07/25/2023, Expires: Start: 07-25-2023 End: 03-24-2024 Thyrotropin [Units/volume] in Serum or Plasma TSH BLD Lab Routine History of thyroid cancer Expected: 07/25/2023, Expires: 03/24/2024 [facility] Work Phone: Comment on above: Expected: 07/25/2023, Expires: Start: 07-25-2023 End: 03-24-2024 Thyroxine (T4) [Mass/volume] in Serum or Plasma T4/THYROXINE BLOOD Lab Routine History of thyroid cancer Expected: 07/25/2023, Expires: 03/24/2024 [facility] Work Phone: Comment on above: Expected: 07/25/2023, Expires: Start: 07-25-2023 End: 03-24-2024 Triiodothyronine (T3) [Mass/volume] in Serum or Plasma T3 BLD Lab Routine History of thyroid cancer Expected: 07/25/2023, Expires: 03/24/2024 [facility] Work Phone: Comment on above: Expected: 07/25/2023, Expires: Start: 06-06-2023 Depression Assessment Depression Assessment [facility] Start: 02-23-2023 End: 04-25-2023 Thyrotropin [Units/volume] in Serum or Plasma TSH BLD Lab Routine Thyroid cancer (HCC) Expected: 02/23/2023, Expires: 04/25/2023 [facility] Work Phone: Comment on above: Expected: 02/23/2023, Expires: Start: 02-23-2023 End: 04-25-2023 Thyroxine (T4) [Mass/volume] in Serum or Plasma T4/THYROXINE BLOOD Lab Routine Thyroid cancer (HCC) Expected: 02/23/2023, Expires: 04/25/2023 [facility] Work Phone: Comment on above: Expected: 02/23/2023, Expires: 3 Start: 02-04-2023 Covid-19 Vaccine () Covid-19 Vaccine () [facility] Start: 02-04-2023 Influenza vaccination [facility] Start: 02-01-2023 Adult depression screening assessment DEPRESSION SCREENING [facility] Start: 11-09-2022 End: 09-10-2023 Thyrotropin [Units/volume] in Serum or Plasma TSH BLD Lab Routine Thyroid cancer (HCC) Expected: 11/09/2022, Expires: 09/10/2023 [facility] Work Phone: Comment on above: Expected: 11/09/2022, Expires: Start: 11-09-2022 End: 09-10-2023 Thyroxine (T4) [Mass/volume] in Serum or Plasma T4/THYROXINE BLOOD Lab Routine Thyroid cancer (HCC) Expected: 11/09/2022, Expires: 09/10/2023 [facility] Work Phone: Comment on above: Expected: 11/09/2022, Expires: Start: 11-09-2022 End: 09-10-2023 Triiodothyronine (T3) [Mass/volume] in Serum or Plasma T3 BLD Lab Routine Thyroid cancer (HCC) Expected: 11/09/2022, Expires: 09/10/2023 [facility] Work Phone: Comment on above: Expected: 11/09/2022, Expires: Start: 09-28-2022 Adult depression screening assessment DEPRESSION SCREENING [facility] Start: 09-08-2022 End: 06-10-2023 Thyrotropin [Units/volume] in Serum or Plasma TSH BLD Lab Routine Thyroid cancer (HCC) Expected: 09/08/2022, Expires: 06/10/2023 [facility] Work Phone: Comment on above: Expected: 09/08/2022, Expires: Start: 09-08-2022 End: 06-10-2023 Thyroxine (T4) [Mass/volume] in Serum or Plasma T4/THYROXINE BLOOD Lab Routine Thyroid cancer (HCC) Expected: 09/08/2022, Expires: 06/10/2023 [facility] Work Phone: Comment on above: Expected: 09/08/2022, Expires: 4 Start: 09-08-2022 End: 06-10-2023 Triiodothyronine (T3) [Mass/volume] in Serum or Plasma T3 BLD Lab Routine Thyroid cancer (HCC) Expected: 09/08/2022, Expires: 06/10/2023 [facility] Work Phone: Comment on above: Expected: 09/08/2022, Expires: 4 Start: 06-06-2022 DEPRESSION ASSESSMENT DEPRESSION ASSESSMENT [facility] Start: 05-14-2022 End: 07-14-2022 Thyroglobulin Ab [Units/volume] in Serum or Plasma THYROGLOBULIN AB Lab Routine Thyroid cancer (HCC) Expected: 05/14/2022, Expires: 07/14/2022 [facility] Work Phone: Comment on above: Expected: 05/14/2022, Expires: 3 Start: 05-14-2022 End: 07-14-2022 Thyroglobulin and Thyrogobulin Ab panel - Serum or Plasma THYROGLOBULIN BLD Lab Routine Thyroid cancer (HCC) Expected: 05/14/2022, Expires: 07/14/2022 [facility] Work Phone: Comment on above: Expected: 05/14/2022, Expires: 3 Start: 05-14-2022 End: 02-12-2023 Thyrotropin [Units/volume] in Serum or Plasma TSH BLD Lab Routine Thyroid cancer (HCC) Expected: 05/14/2022, Expires: 02/12/2023 [facility] Work Phone: Comment on above: Expected: 05/14/2022, Expires: 3 Start: 05-14-2022 End: 02-12-2023 Thyroxine (T4) [Mass/volume] in Serum or Plasma T4/THYROXINE BLOOD Lab Routine Thyroid cancer (HCC) Expected: 05/14/2022, Expires: 02/12/2023 [facility] Work Phone: Comment on above: Expected: 05/14/2022, Expires: 3 Start: 05-14-2022 End: 02-12-2023 Triiodothyronine (T3) [Mass/volume] in Serum or Plasma T3 BLD Lab Routine Thyroid cancer (HCC) Expected: 05/14/2022, Expires: 02/12/2023 [facility] Work Phone: Comment on above: Expected: 05/14/2022, Expires: 3 Start: 02-05-2022 End: 04-07-2022 T3 BLD T3 BLD Lab Routine Thyroid cancer (HCC) Expected: 02/05/2022, Expires: 04/07/2022 [facility] Work Phone: Comment on above: Expected: 02/05/2022, Expires: 2 Start: 02-05-2022 End: 04-07-2022 Thyrotropin [Units/volume] in Serum or Plasma TSH BLD Lab Routine Thyroid cancer (HCC) Expected: 02/05/2022, Expires: 04/07/2022 [facility] Work Phone: Comment on above: Expected: 02/05/2022, Expires: 2 Start: 02-05-2022 End: 04-07-2022 Thyroxine (T4) [Mass/volume] in Serum or Plasma T4/THYROXINE BLOOD Lab Routine Thyroid cancer (HCC) Expected: 02/05/2022, Expires: 04/07/2022 [facility] Work Phone: Comment on above: Expected: 02/05/2022, Expires: 2 Start: 02-04-2022 Influenza vaccination [facility] Start: 12-16-2021 End: 02-15-2022 Thyrotropin [Units/volume] in Serum or Plasma TSH BLD Lab Routine Thyroid cancer (HCC) Expected: 12/16/2021, Expires: 02/15/2022 [facility] Work Phone: Comment on above: Expected: 12/16/2021, Expires: 2 Start: 12-16-2021 End: 02-15-2022 Thyroxine (T4) [Mass/volume] in Serum or Plasma T4/THYROXINE BLOOD Lab Routine Thyroid cancer (HCC) Expected: 12/16/2021, Expires: 02/15/2022 [facility] Work Phone: Comment on above: Expected: 12/16/2021, Expires: 2 Start: 06-06-2021 DEPRESSION ASSESSMENT DEPRESSION ASSESSMENT [facility] Start: 02-05-2020 Influenza vaccination INFLUENZA (#1) [facility] Start: 04-26-2018 Hemoglobin A1c measurement Diabetes: Hemoglobin A1C [facility] Start: 2017 Administration of varicella zoster vaccine Zoster (Shingles) Vaccine (1 of 2) [facility] Start: 2017 Pneumococcal Vaccine: 50+ (1 of 1 - PCV) Pneumococcal Vaccine: 50+ (1 of 1 - PCV) [facility] Start: 2017 Screening for malignant neoplasm of colon [facility] Start: 2017 SHINGRIX VACCINE (1 of 2) SHINGRIX VACCINE (1 of 2) [facility] Start: 01-25-2012 COLOGUARD (FIT-DNA) COLOGUARD (FIT-DNA) [facility] Start: 01-25-2012 Colonoscopy COLONOSCOPY [facility] Start: 01-25-2012 COLORECTAL CANCER SCREENING COLORECTAL CANCER SCREENING [facility] Start: 01-25-[address] COLONOGRAPHY [facility] Start: 01-25-2012 DIABETES SCREEN DIABETES SCREEN [facility] Start: 01-25-2012 FECAL OCCULT BLOOD FECAL OCCULT BLOOD [facility] Start: 01-25-2012 Lipid 1996 panel - Serum or Plasma Lipid Screening [facility] Start: 01-25-2012 Lipid panel Lipid Screening [facility] Start: 01-25-2012 LIPID SCREEN LIPID SCREEN [facility] Start: 01-25-2012 Screening for malignant neoplasm of colon [facility] Start: 01-25-2012 SIGMOIDOSCOPY SIGMOIDOSCOPY [facility] Start: 2007 Mammography [facility] Start: 2007 Screening for malignant neoplasm of breast Mammogram Screening [facility] Start: 1997 HPV TESTING HPV TESTING [facility] Start: 1997 Screening for malignant neoplasm of cervix [facility] Start: 01-25-1988 PAP TESTING [facility]ING [facility] [facility] Start: 01-25-1988 Screening for malignant neoplasm of cervix [facility] Start: 1986 DTaP,Tdap and Td Vaccines (1 - Tdap) DTaP,Tdap and Td Vaccines (1 - Tdap) [facility] Start: 1986 Hepatitis B Vaccine (1 of 3 - 19+ 3-dose series) Hepatitis B Vaccine (1 of 3 - 19+ 3-dose series) [facility] Start: 1986 Urine microalbumin profile [facility] Start: 1986 Urine screening for protein Diabetes: Urine Protein Screening [facility] Start: 1985 Adult BMI Follow Up Plan Adult BMI Follow Up Plan [facility] Start: 1985 Anxiety Screening Anxiety Screening [facility] Start: 1985 Depression Screening Depression Screening [facility] Start: 1985 HEPATITIS C SCREENING HEPATITIS C SCREENING [facility] Start: 1985 Hepatitis C screening Hepatitis C Screening [facility] Start: 1985 HIV SCREENING HIV SCREENING [facility] Start: 1985 HIV screening HIV Screening [facility] Start: 1979 Depression Screening Depression Screening [facility] Start: 1977 Glaucoma screening Diabetes: Retinopathy Screening [facility] Start: 1973 PNEUMOCOCCAL (1 - PCV) PNEUMOCOCCAL (1 - PCV) [facility] Start: 01-25-1972 COVID-19 VACCINE (#1) COVID-19 VACCINE (#1) [facility] Start: 1967 COVID-19 VACCINE (#1) COVID-19 VACCINE (#1) [facility] Start: 1967 HEPATITIS B (1 of 3 - 3-dose series) HEPATITIS B (1 of 3 - 3-dose series) [facility] Start: 1967 Hepatitis B Vaccine (1 of 3 - 3-dose series) Hepatitis B Vaccine (1 of 3 - 3-dose series) [facility] Start: 1967 Screening for malignant neoplasm of colon [facility] End: 09-11-2024 Colonoscopy Colonoscopy GI Routine Encounter for colonoscopy in patient with family history of colon cancer 1 Occurrences starting 09/13/2023 until 09/11/2024 [facility] Work Phone: Comment on above: 1 Occurrences starting 09/13/2023 until 09/11/2024 [facility] Immunizations Immunization Date Immunization Notes Care Provider Fa cili 02-24-2024 Pneumococcal Conjuga te PCV 20 Katalina Aichholz TRACTOR TRAILER [employer]ING [employer] Work Phone: [facility] 02-24-2024 Seasonal, trivalent, recombinant, injectable influenza vaccine, preservative free Katalina Aichholz TRACTOR TRAILER [employer] Work Phone: [facility] 02-24-2024 zoster vaccine recombinant Katalina Aichholz TRACTOR TRAILER [employer] Work Phone: [facility] 02-24-2024 influenza virus vacc ine, unspecified formulation Sarah Khan MD Work Phone: [facility] 03-25-2020 influenza, high dose seasonal, preservative-free Katalina Aichholz TRACTOR TRAILER [employer] Work Phone: [facility] 03-25-2020 influenza, injectabl e, quadrivalent, preservative free Katalina Aichholz TRACTOR TRAILER [employer] Work Phone: [facility] 03-25-2020 pneumococcal polysaccharide vaccine, 23 valent Katalina Aichholz TRACTOR TRAILER [employer] Work Phone: [facility] 03-25-2020 influenza virus vacc ine, unspecified formulation SOFY Pringle MD Work Phone: [facility] 04-05-2019 influenza, high dose seasonal, preservative-free Katalina Aichholz TRACTOR TRAILER [employer] Work Phone: [facility] 03-19-2019 influenza, seasonal, injectable Katalina Aichholz TRACTOR TRAILER [employer] Work Phone: [facility] 03-22-2018 influenza, high dose seasonal, preservative-free Katalina Aichholz TRACTOR TRAILER [employer] Work Phone: [facility] 03-22-2018 influenza, injectabl e, quadrivalent, preservative free Katalina Aichholz TRACTOR TRAILER [employer] Work Phone: [facility] 03-04-2015 influenza, seasonal, injectable Katalina Aichholz TRACTOR TRAILER [employer] Work Phone: [facility] 03-23-2013 influenza, seasonal, injectable Katalina Aichholz TRACTOR TRAILER [employer] Work Phone: [facility] 04-15-2009 novel influenza-H1N1 -09, preservative-free, injectable Katalina Aichholz TRACTOR TRAILER [employer] Work Phone: [facility] 08-11-2001 hepatitis B vaccine, adult dosage Katalina Aichholz TRACTOR TRAILER [employer] Work Phone: [facility] 02-17-2001 hepatitis B vaccine, adult dosage Katalina Aichholz TRACTOR TRAILER [employer] Work Phone: [facility] 03-09-2000 hepatitis B vaccine, adult dosage Katalina Aichholz TRACTOR TRAILER [employer] Work Phone: [facility] Payers Date Payer Category Payer Unknown [employer] [id number] 2023-Present [phone] [address] [place] [address] [id number] 2023 Unknown [id number] 2022 Unknown [id number] 2020 Private Health Insurance [facility] CHOICE PLUS [id number] 2020-Present [phone] [address] [place] [address] HMO [id number] 2020 Private Health Insurance [id number] 2020 Private Health Insurance [id number] 2019 Unknown JAIDEN SIEGEL PPO [id number] 2019-Present PPO [id number] 1967 Unknown [id number] 2.16.840.1.561587.3.579.2 .593 1967 Unknown [id number] 2.16.840.1.222951.3.579.2 .593 1967 Unknown [id number] 2.16.840.1.699068.3.579.2 .593 1967 Unknown [id number] 2.16.840.1.026845.3.579.2 .593 1967 Unknown [id number] 2.16.840.1.768115.3.579.2 .593 1967 Unknown [id number] 2.16.840.1.040309.3.579.2 .593 1967 Unknown [id number] 2.16.840.1.947209.3.579.2 .593 1967 Unknown [id number] 2.16.840.1.407635.3.579.2 .593 1967 Unknown [id number] 2.16.840.1.833615.3.579.2 .593 1967 Unknown [id number] 2.16.840.1.202178.3.579.2 .593 1967 Unknown [id number] 2.16.840.1.510805.3.579.2 .1286 1967 Unknown [id number] 2.16.840.1.220195.3.579.2 .1286 1967 Unknown [id number] 2.16.840.1.162492.3.579.2 .1286 1967 Unknown [id number] 2.16.840.1.147862.3.579.2 .1286 1967 Unknown [id number] 2.16.840.1.894690.3.579.2 .1286 1967 Unknown [id number] 2.16.840.1.384582.3.579.2 .9 1967 Unknown [id number] 2.16.840.1.522061.3.579.2 .1258 1967 Unknown [id number] 2.16.840.1.310916.3.579.2 .9 1967 Unknown [id number] 2.16.840.1.148340.3.579.2 .1258 1967 Unknown [id number] 2.16.840.1.488415.3.579.2 .9 1967 Unknown [id number] 2.16.840.1.253808.3.579.2 .1258 1967 Unknown [id number] 2.16.840.1.186829.3.579.2 .1258 1967 Unknown [id number] 2.16.840.1.321488.3.579.2 .9 1959 Private Health Insurance [id number] Social History Date Type Detail Facility Start: 05-11-2012 End: 12-11-2024 Tobacco smoking status NHIS Former smoker [facility] Work Phone: Start: 06-06-1985 History of tobacco use Cigarette Smoker [facility] Start: 05-11-2012 Alcohol intake Not Asked [facility] Start: 05-11-2012 Tobacco Comment quit smoking Jun 28, 2009 [facility] Start: 1965 Sex Assigned At Not on file [facility] Exposure to SARS-CoV -2 (event) Unable to assess [facility] Start: 05-11-2012 End: 08-13-2024 Cigarettes smoked current (pack per day) - Reported 1 [facility] Start: 05-11-2012 End: 12-11-2024 Tobacco use and exposure Smokeless tobacco non-user [facility] Work Phone: Start: 09-16-2020 End: 01-22-2025 Alcohol intake Ex-drinker (finding) [facility] Start: 06-06-1985 History of tobacco use Current smoker [facility] Start: 01-25-2022 End: 02-04-2022 Exposure to SARS-CoV-2 (event) Not sure [facility] Start: 09-06-2022 End: 08-13-2024 Patient Health Questionnaire 2 item (PHQ-2) [Reported] [facility] Adult Depression Screening Assessment 0 [facility] Start: 07-20-2020 Gender identity Identifies as female gender (finding) [facility] Start: 07-20-2020 Sexual orientation Heterosexual (finding) [facility] Within the last year , have [...] To some extent [facility] (I/We) worried whegeorgina er (my/our) food would run out before (I/we) got money to buy more. Never true [facility] Start: 06-09-2023 Tobacco Comment Last smoked: 5-10 years ago [facility] Start: 06-09-2023 Alcohol Comment caffeine more than 4 cups per day [facility] Start: 1965 Sex Assigned At Female [facility] Start: 09-13-2023 End: 09-28-2023 Alcoholic beverage intake Current drinker of alcohol (finding) [facility] Start: 01-10-2018 Alcohol Comment rare [facility] Medical Equipment Procedure Code Equipment Code Equipment Origin al Text Equipment Identifier Dates 0---Anchr Sut 4.5mm Pshlk Spnl - [id number] Start: 11-29-2012 Comment on above: Description: SUTURE ANCHOR [id number] Start: 04-20-2023 End: 05-28-2024 Inject 1 each under the skin in the morning and 1 each at noon and 1 each in the evening and 1 each before bedtime. [id number] Start: 02-28-2024 End: 05-28-2024 Goals Date Patient Goal Desired Activity /State Personal health goal Clinical Notes 10-16-2021 to 01-22-2025 Rita Pulliam CNM - 01/22/2025 3:30 PM EDTTelephone Encounter - Katalina Colbert NP - 12/12/2024 8:40 AM EDTTelephone Encounter - Katalina Colbert NP - 12/12/2024 8:40 AM EDTPatient Instructions Note Date & Type Note Facility 01-22-2025 History of Present illness Narrative PROBLEM VISIT Katalina Velazquezalfonso is 59 y.o. 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 CABALLERO TOTAL THYROIDECTOMY 03/25/2020 at [facility]: papillary carcinoma 1/2 nodes positive in ant. [...] Grandmother Breast cancer Alzheimer's disease Paternal Grand[facility] Allergies: Allergies Allergen Reactions Wound Dressing [...] mouth Daily 30 tablet 2 ReliOn Pen [place] 31G X 6 MM misc Inject 1 [...] has heart blockage and going to the lab clerk in a week or so. Patient met a man online from [place] and she is maybe going to move to [place] with him. I did advise her to make her health appts first and television agent appt is a priority before she would move. PVU. No follow-ups on file. There are no Patient Instructions on file for this visit. Darlin Covington MA,01/22/2025 3:36 PM documented in this encounter [facility] 01-14-2025 Note PR Cardiology - [facility] Subjective Katalina Hutchins is a 59 [...] 2024 in the emergency room at the [facility] because of chest pain. Her ECG [...] 1 capsule by (more content not included)... [facility] 12-12-2024 Telephone encounter Note Contact the patient, I checked with [facility] centralized scheduling about her ECHO and stress test, this is still in the process of getting approved with insurance. This was the reason she was to fu today, so lets push her appt out another 4 weeks [place] [facility] 12-12-2024 Miscellaneous Notes Contact the patient, I checked with [facility] centralized scheduling about her ECHO and stress test, this is still in the process of getting approved with insurance. 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 Katalina García. This is like the 3rd or maybe [...] what is going on. My number is [phone]. Birthday is [id number]. I do not know if she wants [...] me a little bit now. Thank you. 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 Katalina Echo. This [...] what is going on. My number is [phone]. Birthday is . I do not know [...] now. Thank you. documented in this encounter [facility] 11-23-2024 Telephone encounter Note Pt was notified of recent results and f/u appt will be coordinated per PSS. Please sign pended refill. Argenis Reynolds, SHAYLA [facility] 11-23-2024 Miscellaneous Notes Pt was notified of recent results and f/u appt will be coordinated per PSS. Please sign pended refill. Argenis Reynolds, RN documented in this encounter [facility] 11-22-2024 Telephone encounter Note Call placed [...] orders for 1 year. Argenis Reynolds RN [facility] 11-22-2024 Miscellaneous Notes Call placed to [...] Argenis Reynolds RN documented in this encounter [facility] 11-21-2024 Note HNO ID: [id number] Author: Zion PRINGLE MD Service: ? Author Type: Physician Type: Progress Notes Filed: 11/29/2024 15:05 Note Text: AMBULATORY Virtual VISIT Katalina Hutchins has consented to this telephone encounter. Persons Present: patient Chief Complaint/Reason: Thyroid, papillary classic variant bilateral, multifocal on the right with lymph node involvement, stage I [id number], status post total thyroidectomy. Patient received I-131 [...] right with lymph node involvement, stage I [id number], status post total thyroidectomy. Plan: Doing well. On appropriate TSH suppression/levothyroxine replacement. Thyroglobulin remains undetectable. Recommend recheck in 1 year. Total Time Spent: 10 minutes Zion Pringle MD [facility] 11-21-2024 History of Present illness Narrative AMBULATORY Virtual VISIT Katalina Hutchins has consented to this telephone encounter. Persons Present: patient Chief Complaint/Reason: Thyroid, papillary classic variant bilateral, multifocal on the right with lymph node involvement, stage I [id number], status post total thyroidectomy. Patient received I-131 [...] 59.9 ng/mL <0.1 <2.0 <0.2 Calcium 10.2 9/7/21 Assessment:Thyroid, papillary classic variant bilateral, multifocal on the right with lymph node involvement, stage I [id number], status post total thyroidectomy. Plan: Doing well. On appropriate TSH suppression/levothyroxine replacement. Thyroglobulin remains undetectable. Recommend recheck in 1 year. Total Time Spent: 10 minutes Zion Pringle MD documented in this encounter [facility] 11-13-2024 History of Present illness Narrative Associated Problem(s): Chest pain of unknown etiology Risk factors; uncontrolled DM, HTN, family hx CAD, CA Would recommend ordering stress test CANNOT walk [...] mg, Oral, 2 times daily ReliOn Pen [place] 31G X 6 MM misc 1 each, [...] studies Allergic rhinitis 07/04/2023 Anxiety and depression ([facility]) 06/09/2023 Arthritis At low risk for fall Chest pain Chronic pain Chronic pain of right knee COVID-19 virus detected DM (diabetes mellitus) ([facility]) 06/2017 Eczema Elevated BUN Essential hypertension ([facility]) 06/09/2023 Hidradenitis suppurativa HLD (hyperlipidemia) ([facility]) HTN (hypertension) ([facility]) Hypercalcemia Insomnia 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 (current) use of insulin ([facility]) Morbid obesity with body mass index (BMI) of 40.0 to 49.9 ([facility]) Multinodular goiter ([facility]) Non compliance w medication regimen Onychomycosis KARINE (obstructive sleep apnea) Papillary thyroid carcinoma ([facility]) Paresthesia of left lower extremity Parotid mass Post-operative hypothyroidism ([facility]) Postmenopausal bleeding Sinusitis Type 2 diabetes mellitus with hyperglycemia ([facility]) Uncontrolled type 2 diabetes mellitus with hyperglycemia, with long-term current use of insulin ([facility]) 06/09/2023 UTI symptoms Vitamin D deficiency Past Surgical History: Procedure Laterality Date CHOLECYSTECTOMY FINE NEEDLE ASPIRATE 03/10/2016 [facility] left parotid IR FINE NEEDLE ASPIRATION THYROID 02/08/2020 OTHER SURGICAL HISTORY Cyst removed Armpit OTHER SURGICAL HISTORY multiple r/o boils ROTATOR CUFF REPAIR Right TOTAL KNEE ARTHROPLASTY Left 04/2015 DR. CABALLERO TOTAL THYROIDECTOMY 03/25/2020 at [facility]: papillary carcinoma 1/2 nodes positive in ant. [...] hyperglycemia, with long-term current use of insulin ([facility]) Check blood sugars daily, notify [...] factors; uncontrolled DM, HTN, family hx CAD, CA Would recommend ordering stress test CANNOT walk on treadmill d/t arthritis in knees Will order lexiscan Relevant Orders STRESS TEST LEXISCAN Echocardiogram 2D complete Associated Problem(s): Uncontrolled type 2 diabetes mellitus with hyperglycemia, with long-term current use of insulin ([facility]) Check blood sugars daily, notify [...] meds: hydrochlorothiazide, losartan documented in this encounter [facility] 11-13-2024 Instructions Katalina Colbert NP - 11/13/2024 3:00 PM EDT Stress test and echo at [facility] documented in this encounter [facility] 11-13-2024 Telephone encounter Note Spoke with patient & rescheduled her phone visit out 1 week on 11/21/2024 at 4 pm. ELLA Mathews [facility] 11-13-2024 Miscellaneous Notes Spoke with patient & rescheduled her phone visit out 1 week on 11/21/2024 at 4 pm. ELLA Mathews Lvm for patient to call back and move phone visit appt out a week. ELLA Mathews Call placed to [facility] due to still not having TG total result. Per lab, they checked with lab pam this am and result still pending. PSS- please call pt and delay phone appt 1 week so we have result. Thank you Argenis Reynolds RN documented in this encounter [facility] 11-13-2024 Telephone encounter Note Lvm for patient to call back and move phone visit appt out a week. ELLA Mathews [facility] 11-13-2024 Telephone encounter Note Call placed to [facility] due to still not having TG total result. Per lab, they checked with lab pam this am and result still pending. PSS- please call pt and delay phone appt 1 week so we have result. Thank you Argenis Weyer, RN [facility] 11-08-2024 Note HNO ID: [id number] Author: ?, ?, ? Service: ? Author Type: ? Type: Progress Notes Filed: 11/21/2024 10:48 Note Text: opened in error [facility] 09-07-2024 Telephone encounter Note Please send Long Acting insulin for 90 days to arturo dai pt is out! [facility] 09-07-2024 Miscellaneous Notes Please send Long Acting insulin for 90 days to arturo dai pt is out! documented in this encounter [facility] 08-13-2024 History of Present illness Narrative Images [...] compliance problems. There is no history of CAD/CA, heart failure or PVD. Anxiety Presents for [...] mg, Oral, 2 times daily ReliOn Pen [place] 31G X 6 MM misc 1 each, [...] studies Allergic rhinitis 07/04/2023 Anxiety and depression ([facility]) 06/09/2023 Arthritis At low risk for fall Chest pain Chronic pain Chronic pain of right knee COVID-19 virus detected DM (diabetes mellitus) ([facility]) 06/2017 Eczema Elevated BUN Essential hypertension ([facility]) 06/09/2023 Hidradenitis suppurativa HLD (hyperlipidemia) ([facility]) HTN (hypertension) ([facility]) Hypercalcemia Insomnia 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 (current) use of insulin ([facility]) Morbid obesity with body mass index (BMI) of 40.0 to 49.9 ([facility]) Multinodular goiter ([facility]) Non compliance w medication regimen Onychomycosis KARINE (obstructive sleep apnea) Papillary thyroid carcinoma ([facility]) Paresthesia of left lower extremity Parotid mass Post-operative hypothyroidism ([facility]/H[facility]) Postmenopausal bleeding Sinusitis Type 2 diabetes mellitus with hyperglycemia ([facility]) Uncontrolled type 2 diabetes mellitus with hyperglycemia, with long-term current use of insulin ([facility]) 06/09/2023 UTI symptoms Vitamin D deficiency Past Surgical History: Procedure Laterality Date CHOLECYSTECTOMY FINE NEEDLE ASPIRATE 03/10/2016 [facility]NA left parotid IR FINE NEEDLE ASPIRATION THYROID 02/08/2020 OTHER SURGICAL HISTORY Cyst removed Armpit OTHER SURGICAL HISTORY multiple r/o boils ROTATOR CUFF REPAIR Right TOTAL KNEE ARTHROPLASTY Left 04/2015 DR. CABALLERO TOTAL THYROIDECTOMY 03/25/2020 at [facility]: papillary carcinoma 1/2 nodes positive in ant. [...] List Items Addressed This Visit Essential hypertension ([facility]) Please check blood pressure daily [...] hyperglycemia, with long-term current use of insulin ([facility]) Check blood sugars daily, notify [...] / creatinine, urine ratio Anxiety and depression (CMS/HCC) - Primary Current medication is Duloxetine FRANCES 7=4 PHQ 9=3 Bilateral lower extremity edema Current medication: hydrochlorothiazide Recommend compression stockings, elevate feet as much as possible and limit sodium Relevant Medications hydroCHLOROthiazide (Microzide) 12.5 MG capsule Papillary thyroid carcinoma ([facility]) Continue with dr campa He [...] written and given to patient Mixed hyperlipidemia (CMS/HCC) Is on statin therapy Check labs yearly and prn dose changes Class 3 severe obesity due to excess calories with serious comorbidity and body mass index (BMI) of 50.0 to 59.9 in adult ([facility]) Discussed with patient their BMI [...] for weight loss. Associated Problem(s): Mixed hyperlipidemia (CMS/HCC) Is on statin therapy Check labs yearly and prn dose changes Associated Problem(s): Anxiety and depression ([facility]) Current medication is Duloxetine FRANCES 7=4 PHQ 9=3 Associated Problem(s): Uncontrolled type 2 diabetes mellitus with hyperglycemia, with long-term current use of insulin ([facility]) Check blood sugars daily, notify [...] on 07/31 Associated Problem(s): Papillary thyroid carcinoma ([facility]) Continue with dr campa He also manages her thyroid dose Associated Problem(s): Class 3 severe obesity due to excess calories with serious comorbidity and body mass index (BMI) of 50.0 to 59.9 in adult ([facility]) Discussed with patient their BMI [...] and limit sodium Associated Problem(s): Essential hypertension ([facility] [facility]) Please check blood pressure daily [...] given to patient documented in this encounter [facility] 08-13-2024 Instructions Katalina Colbert NP - 08/13/2024 2:00 PM EDT Order for pt for PAP head gear etc Lab order written documented in this encounter [facility] 07-24-2024 Telephone encounter Note Orders faxed to [facility] and mailed to patient home. [facility] 07-24-2024 Miscellaneous Notes Orders faxed to [facility] and mailed to patient home. Patient scheduled for 3 month phone visit. Just waiting on orders to be signed to be mailed to patient and faxed to [facility]. Call placed to pt to check status [...] months out. Please fax lab orders to [facility] once signed and also mail paper copy of all orders to patient. Thank you Argenis Reynolds RN documented in this encounter [facility] 07-24-2024 Telephone encounter Note Patient scheduled for 3 month phone visit. Just waiting on orders to be signed to be mailed to patient and faxed to [facility]. [facility] 07-24-2024 Telephone encounter Note Call placed [...] months out. Please fax lab orders to [facility] once signed and also mail paper copy of all orders to patient. Thank you Argenis Reynolds RN [facility] 07-13-2024 History of Present illness Narrative [...] studies Allergic rhinitis 07/04/2023 Anxiety and depression ([facility]) 06/09/2023 Arthritis At low risk for fall Chest pain Chronic pain Chronic pain of right knee COVID-19 virus detected DM (diabetes mellitus) ([facility]) 06/2017 Eczema Elevated BUN Essential hypertension ([facility]) 06/09/2023 Hidradenitis suppurativa HLD (hyperlipidemia) ([facility]) HTN (hypertension) ([facility]) Hypercalcemia Insomnia residential (current) use of insulin ([facility]) Morbid obesity with body mass index (BMI) of 40.0 to 49.9 ([facility]) Multinodular goiter ([facility]) Non compliance w medication regimen Onychomycosis KARINE (obstructive sleep apnea) Papillary thyroid carcinoma ([facility]) Paresthesia of left lower extremity [...] 04/2015 DR. CABALLERO TOTAL THYROIDECTOMY 03/25/2020 at [facility]: papillary carcinoma 1/2 nodes positive in ant. [...] hyperglycemia, with long-term current use of insulin ([facility]) - POCT glycosylated hemoglobin (Hb A1C) docked device - POCT glucose manually resulted Continue with Lantus 60, Humalog 15 2024 according to meal size, metformin 1000 twice a day, Januvia 100 mg once a day. Insulin long-term use ([facility]) Hyperlipemia, mixed ([facility]) Vitamin D deficiency Encounter for dietary consultation Class 3 severe obesity with serious comorbidity and body mass index (BMI) of 50.0 to 59.9 in adult, unspecified obesity type ([facility]) Follow up in about 4 [...] visit: No Eye exam current: Yes Sees tariff inspector: No documented in this encounter [facility] 05-09-2024 History of Present illness Narrative Associated [...] 100 UNITS) insulin pen needle (ReliOn Pen [place]) 31G x 6 mm misc 1 each, [...] studies Allergic rhinitis 07/04/2023 Anxiety and depression ([facility]) 06/09/2023 Arthritis At low risk for fall Chest pain Chronic pain Chronic pain of right knee COVID-19 virus detected DM (diabetes mellitus) ([facility]) 06/2017 Eczema Elevated BUN Essential hypertension ([facility]) 06/09/2023 Hidradenitis suppurativa HLD (hyperlipidemia) ([facility]) HTN (hypertension) ([facility]) Hypercalcemia Insomnia 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 (current) use of insulin ([facility]) Morbid obesity with body mass index (BMI) of 40.0 to 49.9 ([facility]) Multinodular goiter ([facility]) Non compliance w medication regimen Onychomycosis KARINE (obstructive sleep apnea) Papillary thyroid carcinoma ([facility]) Paresthesia of left lower extremity Parotid mass Post-operative hypothyroidism (CMS/HCC) Postmenopausal bleeding Sinusitis Type 2 diabetes mellitus with hyperglycemia (CMS/HCC) Uncontrolled type 2 diabetes mellitus with hyperglycemia, with long-term current use of insulin ([facility]) 06/09/2023 UTI symptoms Vitamin D deficiency Past Surgical History: Procedure Laterality Date CHOLECYSTECTOMY FINE NEEDLE ASPIRATE 03/10/2016 FNA left parotid IR FINE NEEDLE ASPIRATION THYROID 02/08/2020 OTHER SURGICAL HISTORY Cyst removed Armpit OTHER SURGICAL HISTORY multiple r/o boils ROTATOR CUFF REPAIR Right TOTAL KNEE ARTHROPLASTY Left 04/2015 DR. CABALLERO TOTAL THYROIDECTOMY 03/25/2020 at [facility]: papillary carcinoma 1/2 nodes positive in ant. [...] hyperglycemia, with long-term current use of insulin ([facility]) Sugars are running 200-300, mother [...] compliant use can increase risk for stroke, CA, HTN, sudden Vitamin D deficiency Takes supplement daily Check labs yearly and prn Class 3 severe obesity due to excess calories with serious comorbidity and body mass index (BMI) of 50.0 to 59.9 in adult ([facility]) Discussed with patient their BMI [...] and yolanda Associated Problem(s): Anxiety and depression ([facility]) Mother recently Current medication is duloxetine at 60mg Associated Problem(s): Class 3 severe obesity due to excess calories with serious comorbidity and body mass index (BMI) of 50.0 to 59.9 in adult ([facility]) Discussed with patient their BMI [...] hyperglycemia, with long-term current use of insulin ([facility]) Sugars are running 200-300, mother [...] legs Cont diuretic Associated Problem(s): Essential hypertension ([facility]) Please check blood pressure daily and record DASH diet Limit caffeine Take medication as directed Contact office if chest pain, pressure, dizziness, shortness of breath, swelling legs Recommend slow position changes Current meds: hydrochlorothiazide, losartan Associated Problem(s): KARINE (obstructive sleep apnea) Non compliant with use Non compliant use can increase risk for stroke, CA, HTN, sudden documented in this encounter [facility] 05-09-2024 Instructions Katalina Colbert NP - 05/09/2024 1:00 PM EST Diabetes: continue with dr khan Need mammogram-order faxed documented in this encounter [facility] 03-23-2024 Telephone encounter Note Patient called this afternoon, apologizing for missing Dr. Pringle's phone appointment. Her Mother had on Tuesday and had family over and didn't hear her phone ringing. She wanted to see if she should reschedule- but when told about the phone visit and labs in Jul 2024 she was ok with those appointments. ELLA Navarro [facility] 03-23-2024 Miscellaneous Notes Patient called this afternoon, apologizing for missing Dr. Pringle's phone appointment. Her Mother had on Tuesday and had family over and didn't hear her phone ringing. She wanted to see if she should reschedule- but when told about the phone visit and labs in Jul 2024 she was ok with those appointments. ELLA Navarro Faxed orders to [facility]. To be drawn by 07/11 to [...] labs. Once signed, please fax orders to [facility] and also mail paper copy to patient. Dr Pringle- please sign pended orders for July and synthroid refill so pt will not run out again. Thank you Argenis Reynolds RN documented in this encounter [facility] 03-23-2024 Telephone encounter Note Faxed orders to [facility]. To be drawn by 07/11 to be ready for phone visit on 07/25. Also mailed copies to patient. [facility] 03-23-2024 Telephone encounter Note Watching for signed orders and will finish [facility] 03-22-2024 Telephone encounter Note PSS-Per Dr Pringle, he was unable to reach pt for her phone visit. He would like patient to have labs rechecked and then a phone visit in July. These labs will take 7-10 days, so pt will need to have phone visit scheduled 2 weeks after labs. Once signed, please fax orders to [facility] and also mail paper copy to patient. Dr Pringle- please sign pended orders for July and synthroid refill so pt will not run out again. Thank you Argenis Reynolds RN [facility] 03-22-2024 Note HNO ID: [id number] Author: Zion PRINGLE MD Service: ? Author Type: Physician Type: Progress Notes Filed: 03/22/2024 14:36 Note Text: Left message. Zion Pringle MD [facility] 03-22-2024 History of Present illness Narrative Left message. Zion Pringle MD documented in this encounter [facility] 03-13-2024 Note HNO ID: [id number] Author: Zion PRINGLE MD Service: ? Author Type: Physician Type: Progress Notes Filed: 06/05/2024 13:12 Note Text: AMBULATORY TELEPHONE VISIT Call made on 03/24/23 Katalina Hutchins has consented to this telephone encounter. Persons Present: patient Chief Complaint/Reason: Thyroid, papillary classic variant bilateral, multifocal on the right with lymph node involvement, stage I [id number], status post total thyroidectomy. Patient received I-131 [...] right with lymph node involvement, stage I [id number], status post total thyroidectomy. Plan: TSH appropriate. Clinically doing well without issues. T4 slightly elevated however given or her TSH shows and lack of hyperthyroid symptoms recommend keeping same dose and recheck labs in 6 months. Total Time Spent: 5 minutes Zion Pringle MD [facility] 03-08-2024 History of Present illness Narrative Katalina [...] 100 UNITS)
insulin pen needle (ReliOn Pen [place]) 31G x 6 mm misc 1 each, [...] studies Allergic rhinitis 07/04/2023 Anxiety and depression ([facility]) 06/09/2023 Arthritis At low risk for fall Chest pain Chronic pain Chronic pain of right knee COVID-19 virus detected DM (diabetes mellitus) ([facility]) 06/2017 Eczema Elevated BUN Essential hypertension ([facility]) 06/09/2023 Hidradenitis suppurativa HLD (hyperlipidemia) ([facility]) HTN (hypertension) ([facility]) Hypercalcemia Insomnia 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 (current) use of insulin ([facility]) Morbid obesity with body mass index (BMI) of 40.0 to 49.9 ([facility]) Multinodular goiter ([facility]) Non compliance w medication regimen Onychomycosis KARINE (obstructive sleep apnea) Papillary thyroid carcinoma ([facility]) Paresthesia of left lower extremity Parotid mass Post-operative hypothyroidism ([facility]) Postmenopausal bleeding Sinusitis Type 2 diabetes mellitus with hyperglycemia ([facility]) Uncontrolled type 2 diabetes mellitus with hyperglycemia, with long-term current use of insulin ([facility]) 06/09/2023 UTI symptoms Vitamin D deficiency Past Surgical History: Procedure Laterality Date CHOLECYSTECTOMY FINE NEEDLE ASPIRATE 03/10/2016 FNA left parotid IR FINE NEEDLE ASPIRATION THYROID 02/08/2020 OTHER SURGICAL HISTORY Cyst removed Armpit OTHER SURGICAL HISTORY multiple r/o boils ROTATOR CUFF REPAIR Right TOTAL KNEE ARTHROPLASTY Left 04/2015 DR. CABALLERO TOTAL THYROIDECTOMY 03/25/2020 at [facility]: papillary carcinoma 1/2 nodes positive in ant. [...] with hyperglycemia, unspecified whether penitentiary insulin use ([facility]) - POCT glycosylated hemoglobin (Hb A1C) docked device - POCT glucose manually resulted Insulin long-term use ([facility]) Hyperlipemia, mixed ([facility]) Vitamin D deficiency Encounter for dietary consultation Class 3 severe obesity with serious comorbidity and body mass index (BMI) of 50.0 to 59.9 in adult, unspecified obesity type ([facility]) Follow up in about 4 months (around 07/09/2024). documented in this encounter [facility] 02-28-2024 Telephone encounter Note MEDICATION SENT TO PHARMACY. [facility] 02-28-2024 Miscellaneous Notes MEDICATION SENT TO PHARMACY. Pen needle refill needed please and thank you! documented in this encounter [facility] 02-27-2024 Telephone encounter Note Pen needle refill needed please and thank you! [facility] 02-14-2024 Telephone encounter Note Please contact pt to reschedule phone visit. Labs in 4 weeks with phone visit AFTER. Argenis Reynolds RN [facility] 02-14-2024 Miscellaneous Notes Please contact pt [...] Kaitlynn Carreon RN documented in this encounter [facility] 02-14-2024 Telephone encounter Note ARMANI- can you please respond to below. As of now, pt is still on for follow up phone call tomorrow. Thank you! Argenis Reynolds RN [facility] 02-08-2024 History of Present illness Narrative [...] mg, Oral, 2 times daily ReliOn Pen [place] 31G X 6 MM misc 1 each, [...] studies Allergic rhinitis 07/04/2023 Anxiety and depression ([facility]) 06/09/2023 Arthritis At low risk for fall Chest pain Chronic pain Chronic pain of right knee COVID-19 virus detected DM (diabetes mellitus) ([facility]) 06/2017 Eczema Elevated BUN Essential hypertension ([facility]) 06/09/2023 Hidradenitis suppurativa HLD (hyperlipidemia) ([facility]) Hypercalcemia Insomnia Multinodular goiter ([facility]) Non compliance w medication regimen Onychomycosis Papillary thyroid carcinoma ([facility]) Paresthesia of left lower extremity Parotid mass Post-operative hypothyroidism ([facility]) Postmenopausal bleeding Sinusitis Uncontrolled type 2 diabetes mellitus with hyperglycemia, with long-term current use of insulin (CMS/HCC) 06/09/2023 UTI symptoms Past Surgical History: Procedure Laterality Date CHOLECYSTECTOMY FINE NEEDLE ASPIRATE 03/10/2016 FNA left parotid IR FINE NEEDLE ASPIRATION THYROID 02/08/2020 OTHER SURGICAL HISTORY Cyst removed Armpit OTHER SURGICAL HISTORY multiple r/o boils ROTATOR CUFF REPAIR Right TOTAL KNEE ARTHROPLASTY Left 04/2015 DR. CABALLERO TOTAL THYROIDECTOMY 03/25/2020 at [facility]: papillary carcinoma 1/2 nodes positive in ant. [...] 100 MG tablet documented in this encounter [facility] 02-08-[address] Victoria please [...] medication routinely? Please advise. Kaitlynn Carreon RN [facility] 09-30-2023 Miscellaneous Notes ----- Message from [...] put in chart. documented in this encounter [facility] 09-30-2023 Telephone encounter Note ----- Message from Latosha Corbett DO sent at 09/30/2023 8:03 AM EDT ----- Please let patient know that she had precancerous tubular adenoma and I recommend repeat colonoscopy in 5 years for surveillance unless problems prior to that. Thanks, Dr. Donovan [facility] 09-30-2023 Telephone encounter Note Spoke with patient regarding pathology results. Patient verbally understood with no further questions. Recall will be put in chart. [facility] 09-13-2023 History of Present illness Narrative [...] Anxiety Arthritis Diabetes mellitus type 2, controlled ([facility]) Eczema Fatty liver Hyperlipidemia Hypertension Obesity Seasonal allergies Shortness of breath Sleep apnea CPAP Thyroid cancer ([facility]) Visual impairment glasses Past Surgical History: Procedure Laterality Date BIOPSY MASS parotid biopsy left side CHOLECYSTECTOMY COLONOSCOPY N/A 08/31/2018 Performed by Latosha Corbett DO at [facility] LESION TRUNK / [...] patient/family/caregiver Referring and communicating with other health home care and home health aides teacher Encounter for colonoscopy in patient with family history of colon cancer [Z12.11, Z80.0] CLARE ROJAS [facility] [place] This note was created with the assistance of a speech recognition program. While intending to generate a timely document that accurately reflects the content of the visit, no guarantee can be provided that every grammatical or spelling mistake has been or will be identified or corrected. Thank you for your understanding. CLARE Rojas 09/13/23 1037 documented in this encounter [facility] 08-04-2023 Miscellaneous Notes Changed appt Spoke to pt as thyroglobulin is not back yet from [facility]. They are unsure when it will result. PSS- please change phone visit to 08/08 at 3:30pm. Thank you documented in this encounter [facility] 05-04-2023 Miscellaneous Notes Please review and sign if agreeable. Argenis Reynolds, RN documented in this encounter [facility] 03-24-2023 Miscellaneous Notes Images from the original note were not included. Mailed patient her lab tests she gets elsewere and scheudled appt for her Eng[place], MD Ele Catalan Radmichell [facility] Nurse Waters; Amanda Hammonds See patient back or televisit 4 months with labs documented in this encounter [facility] 03-24-2023 History of Present illness Narrative AMBULATORY TELEPHONE VISIT Call made on 03/24/23 Katalina Hutchins has consented to this telephone encounter. Persons Present: patient Chief Complaint/Reason: Thyroid, papillary classic variant bilateral, multifocal on the right with lymph node involvement, stage I [id number], status post total thyroidectomy. Patient received I-131 [...] right with lymph node involvement, stage I [id number], status post total thyroidectomy. Plan: TSH improved, a little higher than ideal however given T4 elevation recommend maintaining current Synthroid dose. Patient without any clinical issues related to this. Plan to recheck labs in 4 months. Total Time Spent: 6 minutes Zion Pringle MD documented in this encounter [facility] 11-18-2022 Miscellaneous Notes Call placed to pt due to not having labs prior to phone visit with Dr Pringle. LM requesting she CB to reschedule after she Is able to have labs. Argenis Reynolds, RN documented in this encounter [facility] 11-18-2022 History of Present illness Narrative AMBULATORY TELEPHONE VISIT Katalina Hutchins has consented to this telephone encounter. Persons Present: patient Chief Complaint/Reason: Thyroid, papillary classic variant bilateral, multifocal on the right with lymph node involvement, stage I [id number], status post total thyroidectomy. Patient received I-131 [...] right with lymph node involvement, stage I [id number], status post total thyroidectomy. Plan: TSH improved, still high. Recommend maintaining Synthroid 200 mcg daily. Recheck in 3-4 months. Total Time Spent: 4 minutes Zion Pringle MD Call made on 11/23/22 documented in this encounter [facility] 09-09-2022 History of Present illness Narrative AMBULATORY TELEPHONE VISIT Katlaina Cristoferalfonso has consented to this telephone encounter. Persons Present: patient Chief Complaint/Reason: Thyroid, papillary classic variant bilateral, multifocal on the right with lymph node involvement, stage I [id number], status post total thyroidectomy. Patient received I-131 [...] right with lymph node involvement, stage I [id number], status post total thyroidectomy. Plan: TSH needs more suppression. Recommend increasing Synthroid to 200 mcg daily. Recheck in 6 to 8 weeks. Encourage patient to call should she feel she is not tolerating this dose. Total Time Spent: 6 minutes Zion Pringle MD documented in this encounter [facility] 09-08-2022 Miscellaneous Notes Lab orders faxed to [facility] per patient request. documented in this encounter [facility] 06-10-2022 History of Present illness Narrative AMBULATORY TELEPHONE VISIT Katalina Hutchins has consented to this telephone encounter. Persons Present: patient Chief Complaint/Reason: Thyroid, papillary classic variant bilateral, multifocal on the right with lymph node involvement, stage I [id number], status post total thyroidectomy. Patient received I-131 [...] right with lymph node involvement, stage I [id number], status post total thyroidectomy. Plan: Labs okay with the exception of TSH. Patient states that she had ran out of her prescription will be for so this is not reliable. Recommend continue the current dose and recheck in 3 months. Otherwise patient is doing well. Thyroglobulin remains undetectable. Total Time Spent: 7 minutes Zion Pringle MD documented in this encounter [facility] 06-02-2022 History of Present illness Narrative AMBULATORY TELEPHONE VISIT Left message. documented in this encounter [facility] 04-16-2022 Miscellaneous Notes Levothyroxine refill request received from [facility] [employer] via fax. Order pending your approval. Dr. [...] Kaitlynn Carreon LPN documented in this encounter [facility] 02-04-2022 History of Present illness Narrative AMBULATORY TELEPHONE VISIT Persons Present: Did not get a hold of patient.(error) I did get a hold of pt by phone. Chief Complaint/Reason: Thyroid, papillary classic variant bilateral, multifocal on the right with lymph node involvement, stage I [id number], status post total thyroidectomy. Patient received I-131 [...] right with lymph node involvement, stage I [id number], status post total thyroidectomy. Plan: Given mixed results with T4 T3 and TSH plan to hold current dose. Recheck 2 to 3 months. Total Time Spent:6 minutes Zion Pringle MD documented in this encounter [facility] 11-05-2021 History of Present illness Narrative AMBULATORY TELEPHONE VISIT Persons Present: Did not get a hold of patient. Chief Complaint/Reason: Thyroid, papillary classic variant bilateral, multifocal on the right with lymph node involvement, stage I [id number], status post total thyroidectomy. Patient received I-131 [...] right with lymph node involvement, stage I [id number], status post total thyroidectomy. Plan: TSH level much improved however still little higher than I would like however given her elevated T4 level plan to keep patient at her current dose and recheck in 2 to 3 months. Total Time Spent:6 minutes Zion Pringle MD documented in this encounter [facility] 10-16-2021 History of Present illness Narrative Unless she has immediate concerns or questions okay to push out 2 months AMBULATORY TELEPHONE VISIT Persons Present: Did not get a hold of patient. Chief Complaint/Reason: Thyroid, papillary classic variant bilateral, multifocal on the right with lymph node involvement, stage I [id number], status post total thyroidectomy. Patient received I-131 [...] right with lymph node involvement, stage I [id number], status post total thyroidectomy. Plan: TSH level much improved however still little higher than I would like however given her elevated T4 level plan to keep patient at her current dose and recheck in 2 to 3 months. Total Time Spent: 0 minutes iZon Pringle MD documented in this encounter [facility] Evaluation note Diagnosis Thyroid cancer (HCC)- Primary Malignant neoplasm of thyroid gland [facility] Thyroid cancer (HCC)- Primary Malignant neoplasm of thyroid gland [facility] Diagnosis Thyroid cancer (HCC)- Primary Malignant neoplasm of thyroid gland [facility] Diagnosis Thyroid cancer (HCC)- Primary Malignant neoplasm of thyroid gland [facility] Diagnosis Thyroid cancer (HCC)- Primary Malignant neoplasm of thyroid gland [facility] Diagnosis 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 Thyroid cancer (HCC) Malignant neoplasm of thyroid gland [facility] Diagnosis History of thyroid cancer- Primary Personal history of malignant neoplasm of thyroid [facility] Diagnosis Acute non-recurrent sinusitis of other sinus- Primary [facility] Diagnosis Type 2 diabetes mellitus with hyperglycemia, 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 (CMS/HCC)- Primary Insulin long-term use (CMS/HCC) Encounter for long-term (current) use of insulin Hyperlipemia, mixed (CMS/HCC) Mixed hyperlipidemia Vitamin D deficiency Encounter for dietary consultation Class 3 severe obesity with serious comorbidity and body mass index (BMI) of 50.0 to 59.9 in adult, unspecified obesity type (CMS/HCC) [facility] Diagnosis History of thyroid cancer- Primary Personal history of malignant neoplasm of thyroid [facility] Diagnosis History of thyroid cancer- Primary Personal history of malignant neoplasm of thyroid [facility]* Diagnosis Essential hypertension (CMS/HCC)- Primary Unspecified [...] hyperglycemia, with long-term current use of insulin ([facility]) Class 3 severe obesity due to excess calories with serious comorbidity and body mass index (BMI) of 50.0 to 59.9 in adult ([facility]) Essential hypertension (CMS/[facility])- Primary Unspecified essential hypertension KARINE (obstructive sleep apnea) Obstructive sleep apnea (adult) (pediatric) Arthritis of knee, right Bilateral lower extremity edema Class 3 severe obesity due to excess calories with serious comorbidity and body mass index (BMI) of 50.0 to 59.9 in adult ([facility]) Malignant neoplasm of thyroid gland (CMS/[facility]) Malignant neoplasm of thyroid gland Papillary thyroid carcinoma ([facility]) Anxiety and depression ([facility]) Hidradenitis suppurativa of multiple sites Yeast infection of the vagina- Primary Candidiasis of vulva and vagina [facility] Diagnosis Essential hypertension ([facility])- Primary Unspecified essential hypertension BMI 45.0-49.9, adult ([facility]) Uncontrolled type 2 diabetes mellitus with hyperglycemia, with long-term current use of insulin ([facility]) Anxiety and depression ([facility]) Essential hypertension ([facility])- Primary Unspecified essential hypertension Bilateral lower extremity edema Vitamin D deficiency Mixed hyperlipidemia ([facility]) Mixed hyperlipidemia History of rectal polyps Uncontrolled type 2 diabetes mellitus with hyperglycemia, with long-term current use of insulin ([facility]) Anxiety and depression ([facility]) Allergic rhinitis, unspecified seasonality, unspecified trigger Essential hypertension ([facility])- Primary Unspecified essential hypertension Malignant neoplasm of thyroid gland ([facility]/HCC) Malignant neoplasm of thyroid gland Pain of left hip Lumbar back pain with radiculopathy affecting left lower extremity Bilateral lower extremity edema Uncontrolled type 2 diabetes mellitus with hyperglycemia, with long-term current use of insulin ([facility]) Class 3 severe obesity due to excess calories with serious comorbidity and body mass index (BMI) of 50.0 to 59.9 in adult ([facility]) Essential hypertension ([facility])- Primary Unspecified essential hypertension KARINE (obstructive sleep apnea) Obstructive sleep apnea (adult) (pediatric) Arthritis of knee, right Bilateral lower extremity edema Class 3 severe obesity due to excess calories with serious comorbidity and body mass index (BMI) of 50.0 to 59.9 in adult ([facility]) Malignant neoplasm of thyroid gland (CMS/HCC) Malignant neoplasm of thyroid gland Papillary thyroid carcinoma (CMS/HCC) Anxiety and depression (CMS/HCC) Hidradenitis suppurativa of multiple sites Hidradenitis suppurativa of multiple sites- Primary [facility]* Diagnosis Essential hypertension (CMS/HCC)- [...] (CMS/HCC) Mixed hyperlipidemia documented in [facility]* Diagnosis Essential hypertension (CMS/HCC)- [...] hyperglycemia, with long-term current use of insulin (CMS/[facility]) Anxiety and depression (CMS/[facility]) Allergic rhinitis, unspecified seasonality, unspecified trigger Essential hypertension (CMS/HCC)- Primary Unspecified essential hypertension Malignant neoplasm of thyroid gland (CMS/HCC) Malignant neoplasm of thyroid gland Pain of left hip Lumbar back pain with radiculopathy affecting left lower extremity Bilateral lower extremity edema Uncontrolled type 2 diabetes mellitus with hyperglycemia, with long-term current use of insulin (CMS/[facility]) Class 3 severe obesity due to excess calories with serious comorbidity and body mass index (BMI) of 50.0 to 59.9 in adult ([facility]) Essential hypertension (CMS/HCC)- Primary Unspecified essential hypertension KARINE (obstructive sleep apnea) Obstructive sleep apnea (adult) (pediatric) Arthritis of knee, right Bilateral lower extremity edema Class 3 severe obesity due to excess calories with serious comorbidity and body mass index (BMI) of 50.0 to 59.9 in adult ([facility]) Malignant neoplasm of thyroid gland (CMS/HCC) Malignant neoplasm of thyroid gland Papillary thyroid carcinoma (CMS/[facility]) Anxiety and depression ([facility]) Hidradenitis suppurativa of multiple sites Essential hypertension ([facility])- Primary Unspecified essential hypertension KARINE (obstructive sleep apnea) Obstructive sleep apnea (adult) (pediatric) Bilateral lower extremity edema Vitamin D deficiency Uncontrolled type 2 diabetes mellitus with hyperglycemia, with long-term current use of insulin ([facility]) Class 3 severe obesity due to excess calories with serious comorbidity and body mass index (BMI) of 50.0 to 59.9 in adult ([facility]) Anxiety and depression (CMS/HCC) Allergic rhinitis, unspecified seasonality, unspecified trigger Encounter for screening mammogram for malignant neoplasm of breast Left foot pain Pain in soft tissues of limb Other chronic pain documented in this encounter [facility]* Diagnosis Essential hypertension (CMS/HCC)- Primary Unspecified essential hypertension BMI 45.0-49.9, adult ([facility]) Uncontrolled type 2 diabetes mellitus with hyperglycemia, with long-term current use of insulin (CMS/[facility]) Anxiety and depression (CMS/HCC) Essential hypertension (CMS/HCC)- Primary Unspecified essential hypertension Bilateral lower extremity edema Vitamin D deficiency Mixed hyperlipidemia (CMS/[facility]) Mixed hyperlipidemia History of rectal polyps Uncontrolled type 2 diabetes mellitus with hyperglycemia, with long-term current use of insulin ([facility]) Anxiety and depression ([facility]) Allergic rhinitis, unspecified seasonality, unspecified trigger Essential hypertension ([facility])- Primary Unspecified essential hypertension Malignant neoplasm of thyroid gland ([facility]) Malignant neoplasm of thyroid gland Pain of left hip Lumbar back pain with radiculopathy affecting left lower extremity Bilateral lower extremity edema Uncontrolled type 2 diabetes mellitus with hyperglycemia, with long-term current use of insulin ([facility]) Class 3 severe obesity due to excess calories with serious comorbidity and body mass index (BMI) of 50.0 to 59.9 in adult ([facility]) Essential hypertension ([facility])- Primary Unspecified essential hypertension KARINE (obstructive sleep apnea) Obstructive sleep apnea (adult) (pediatric) Arthritis of knee, right Bilateral lower extremity edema Class 3 severe obesity due to excess calories with serious comorbidity and body mass index (BMI) of 50.0 to 59.9 in adult ([facility]) Malignant neoplasm of thyroid gland ([facility]) Malignant neoplasm of thyroid gland Papillary thyroid carcinoma ([facility] Anxiety and depression ([facility]) Hidradenitis suppurativa of multiple sites Essential hypertension ([facility])- Primary Unspecified essential hypertension KARINE (obstructive sleep apnea) Obstructive sleep apnea (adult) (pediatric) Bilateral lower extremity edema Vitamin D deficiency Uncontrolled type 2 diabetes mellitus with hyperglycemia, with long-term current use of insulin ([facility]) Class 3 severe obesity due to excess calories with serious comorbidity and body mass index (BMI) of 50.0 to 59.9 in adult ([facility]) Anxiety and depression ([facility]) Allergic rhinitis, unspecified seasonality, unspecified trigger Encounter for screening mammogram for malignant neoplasm of breast Left foot pain Pain in soft tissues of limb Other chronic pain Chronic pain syndrome [facility] Diagnosis Anxiety and depression ([facility]) documented [facility]* Diagnosis Essential hypertension ([facility])- Primary Unspecified essential hypertension KARINE (obstructive sleep apnea) Obstructive sleep apnea (adult) (pediatric) Arthritis of knee, right Bilateral lower extremity edema Class 3 severe obesity due to excess calories with serious comorbidity and body mass index (BMI) of 50.0 to 59.9 in adult ([facility]) Malignant neoplasm of thyroid gland ([facility]/HCC) Malignant neoplasm of thyroid gland Papillary thyroid carcinoma ([facility]/HCC) Anxiety and depression ([facility]/HCC) Hidradenitis suppurativa of multiple sites documented in this encounter [facility]* Diagnosis Vitamin D deficiency- Primary documented [facility]* Diagnosis Essential hypertension ([facility]) Unspecified essential hypertension documented [facility]* Diagnosis Type 2 diabetes mellitus with hyperglycemia, with long-term current use of insulin ([facility]) documented in this encounter [facility]* Diagnosis Essential hypertension ([facility]/HCC)- Primary Unspecified essential hypertension BMI 45.0-49.9, adult ([facility]) Uncontrolled type 2 diabetes mellitus with hyperglycemia, with long-term current use of insulin ([facility]) Anxiety and depression ([facility]) Essential hypertension ([facility])- Primary Unspecified essential hypertension Bilateral lower extremity edema Vitamin D deficiency Mixed hyperlipidemia ([facility]) Mixed hyperlipidemia History of rectal polyps Uncontrolled type 2 diabetes mellitus with hyperglycemia, with long-term current use of insulin ([facility]) Anxiety and depression ([facility]) Allergic rhinitis, unspecified seasonality, unspecified trigger Essential hypertension ([facility])- Primary Unspecified essential hypertension Malignant neoplasm of thyroid gland ([facility]/HCC) Malignant neoplasm of thyroid gland Pain of left hip Lumbar back pain with radiculopathy affecting left lower extremity Bilateral lower extremity edema Uncontrolled type 2 diabetes mellitus with hyperglycemia, with long-term current use of insulin ([facility]) Class 3 severe obesity due to excess calories with serious comorbidity and body mass index (BMI) of 50.0 to 59.9 in adult ([facility]/HCC) Essential hypertension ([facility]/HCC)- Primary Unspecified essential hypertension KARINE (obstructive sleep apnea) Obstructive sleep apnea (adult) (pediatric) Arthritis of knee, right Bilateral lower extremity edema Class 3 severe obesity due to excess calories with serious comorbidity and body mass index (BMI) of 50.0 to 59.9 in adult ([facility]/HCC) Malignant neoplasm of thyroid gland (CMS/HCC) Malignant neoplasm of thyroid gland Papillary thyroid carcinoma ([facility]/HCC) Anxiety and depression ([facility]/HCC) Hidradenitis suppurativa of multiple sites Essential hypertension ([facility]/HCC)- Primary Unspecified essential hypertension KARINE (obstructive sleep apnea) Obstructive sleep apnea (adult) (pediatric) Bilateral lower extremity edema Vitamin D deficiency Uncontrolled type 2 diabetes mellitus with hyperglycemia, with long-term current use of insulin ([facility]) Class 3 severe obesity due to excess calories with serious comorbidity and body mass index (BMI) of 50.0 to 59.9 in adult ([facility]) Anxiety and depression ([facility]) Allergic rhinitis, unspecified seasonality, unspecified trigger Encounter for screening mammogram for malignant neoplasm of breast Left foot pain Pain in soft tissues of limb Other chronic pain Type 2 diabetes mellitus with hyperglycemia, with long-term current use of insulin ([facility])- Primary Insulin long-term use ([facility]) Encounter for long-term (current) use of insulin Hyperlipemia, mixed ([facility]) Mixed hyperlipidemia Vitamin D deficiency Encounter for dietary consultation Class 3 severe obesity with serious comorbidity and body mass index (BMI) of 50.0 to 59.9 in adult, unspecified obesity type ([facility]) documented in this encounter [facility]* Diagnosis Essential hypertension ([facility])- Primary Unspecified essential hypertension BMI 45.0-49.9, adult ([facility]) Uncontrolled type 2 diabetes mellitus with hyperglycemia, with long-term current use of insulin ([facility]) Anxiety and depression ([facility]) Essential hypertension ([facility])- Primary Unspecified essential hypertension Bilateral lower extremity edema Vitamin D deficiency Mixed hyperlipidemia ([facility]) Mixed hyperlipidemia History of rectal polyps Uncontrolled type 2 diabetes mellitus with hyperglycemia, with long-term current use of insulin ([facility]) Anxiety and depression ([facility]) Allergic rhinitis, unspecified seasonality, unspecified trigger Essential hypertension ([facility])- Primary Unspecified essential hypertension Malignant neoplasm of thyroid gland ([facility]) Malignant neoplasm of thyroid gland Pain of left hip Lumbar back pain with radiculopathy affecting left lower extremity Bilateral lower extremity edema Uncontrolled type 2 diabetes mellitus with hyperglycemia, with long-term current use of insulin ([facility]) Class 3 severe obesity due to excess calories with serious comorbidity and body mass index (BMI) of 50.0 to 59.9 in adult ([facility]) Essential hypertension ([facility])- Primary Unspecified essential hypertension KARINE [...] lower extremity edema documented in this encounter [facility]* Diagnosis Encounter for colonoscopy in patient with family history of colon cancer- Primary Family history of colon cancer Family history of malignant neoplasm of gastrointestinal tract documented [facility] encounter [facility]* Diagnosis History of thyroid cancer- Primary Personal history of malignant neoplasm of thyroid [facility] Essential hypertension (CMS/HCC)- Primary [...] hyperglycemia, with long-term current use of insulin (CMS/[facility]) Class 3 severe obesity due to excess calories with serious comorbidity and body mass index (BMI) of 50.0 to 59.9 in adult ([facility]) Anxiety and depression ([facility]) Allergic rhinitis, unspecified seasonality, unspecified trigger Encounter for screening mammogram for malignant neoplasm of breast Left foot pain Pain in soft tissues of limb Other chronic pain Anxiety and depression (CMS/[facility])- Primary KARINE (obstructive sleep apnea) Obstructive sleep apnea (adult) (pediatric) Essential hypertension (CMS/HCC) Unspecified essential hypertension Bilateral lower extremity edema Class 3 severe obesity due to excess calories with serious comorbidity and body mass index (BMI) of 50.0 to 59.9 in adult ([facility]/HCC) Papillary thyroid carcinoma (CMS/[facility]) Uncontrolled type 2 diabetes mellitus with hyperglycemia, with long-term current use of insulin (CMS/[facility]) Mixed hyperlipidemia ([facility]) Mixed hyperlipidemia [facility]* Diagnosis Essential hypertension (CMS/HCC)- Primary Unspecified essential hypertension BMI 45.0-49.9, adult ([facility]) Uncontrolled type 2 diabetes mellitus with hyperglycemia, with long-term current use of insulin (CMS/HCC) Anxiety and depression (CMS/HCC) Essential hypertension (CMS/HCC)- Primary Unspecified essential hypertension Bilateral lower extremity edema Vitamin D deficiency Mixed hyperlipidemia (CMS/HCC) Mixed hyperlipidemia History of rectal polyps Uncontrolled type 2 diabetes mellitus with hyperglycemia, with long-term current use of insulin (CMS/[facility]) Anxiety and depression (CMS/HCC) Allergic [...] hyperglycemia, with long-term current use of insulin (CMS/[facility]) Class 3 severe obesity due to excess calories with serious comorbidity and body mass index (BMI) of 50.0 to 59.9 in adult Anxiety and depression (CMS/HCC) Allergic rhinitis, unspecified seasonality, unspecified trigger Encounter for screening mammogram for malignant neoplasm of breast Left foot pain Pain in soft tissues of limb Other chronic pain Anxiety and depression (CMS/[facility])- Primary KARINE (obstructive sleep apnea) [...] Primary Unspecified essential hypertension BMI 45.0-49.9, adult (CMS/[facility]) Uncontrolled type 2 diabetes mellitus with hyperglycemia, with long-term current use of insulin ([facility]) Anxiety and depression ([facility] [facility]) Essential hypertension ([facility])- Primary Unspecified essential hypertension Bilateral lower extremity edema Vitamin D deficiency Mixed hyperlipidemia ([facility]) Mixed hyperlipidemia History of rectal polyps Uncontrolled type 2 diabetes mellitus with hyperglycemia, with long-term current use of insulin ([facility]) Anxiety and depression ([facility]) Allergic rhinitis, unspecified seasonality, unspecified trigger Essential hypertension ([facility])- Primary Unspecified essential hypertension Malignant neoplasm of thyroid gland ([facility]) Malignant neoplasm of thyroid gland Pain of left hip Lumbar back pain with radiculopathy affecting left lower extremity Bilateral lower extremity edema Uncontrolled type 2 diabetes mellitus with hyperglycemia, with long-term current use of insulin ([facility]) Class 3 severe obesity due to excess calories with serious comorbidity and body mass index (BMI) of 50.0 to 59.9 in adult Essential hypertension ([facility])- Primary Unspecified essential hypertension KARINE (obstructive sleep apnea) Obstructive sleep apnea (adult) (pediatric) Arthritis of knee, right Bilateral lower extremity edema Class 3 severe obesity due to excess calories with serious comorbidity and body mass index (BMI) of 50.0 to 59.9 in adult Malignant neoplasm of thyroid gland ([facility]) Malignant neoplasm of thyroid gland Papillary thyroid carcinoma ([facility] Anxiety and depression ([facility]) Hidradenitis suppurativa of multiple sites Essential hypertension ([facility])- Primary Unspecified essential hypertension KARINE (obstructive sleep apnea) Obstructive sleep apnea (adult) (pediatric) Bilateral lower extremity edema Vitamin D deficiency Uncontrolled type 2 diabetes mellitus with hyperglycemia, with long-term current use of insulin ([facility]) Class 3 severe obesity due to excess calories with serious comorbidity and body mass index (BMI) of 50.0 to 59.9 in adult Anxiety and depression ([facility]) Allergic rhinitis, unspecified seasonality, unspecified trigger Encounter for screening mammogram for malignant neoplasm of breast Left foot pain Pain in soft tissues of limb Other chronic pain Anxiety and depression ([facility])- Primary KARINE (obstructive sleep apnea) Obstructive sleep apnea (adult) (pediatric) Essential hypertension ([facility]/HCC) Unspecified essential hypertension Bilateral lower extremity edema [...] 2 diabetes mellitus 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, 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 (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/HCC) documented in this encounter [facility]* Diagnosis Essential hypertension ([facility])- Primary Unspecified essential hypertension BMI 45.0-49.9, adult ([facility]) Uncontrolled type 2 diabetes mellitus with hyperglycemia, with long-term current use of insulin (CMS/[facility]) Anxiety and depression (CMS/HCC) Essential hypertension (CMS/[facility])- Primary Unspecified essential hypertension Bilateral lower extremity edema Vitamin D deficiency Mixed hyperlipidemia (CMS/[facility]) Mixed hyperlipidemia History of rectal polyps Uncontrolled type 2 diabetes mellitus with hyperglycemia, with long-term current use of insulin ([facility]) Anxiety and depression ([facility]) Allergic rhinitis, unspecified seasonality, unspecified trigger Essential hypertension ([facility]/HCC)- Primary Unspecified essential hypertension Malignant neoplasm of thyroid gland (CMS/HCC) Malignant neoplasm of thyroid gland Pain of left hip Lumbar back pain with radiculopathy affecting left lower extremity Bilateral lower extremity edema Uncontrolled type 2 diabetes mellitus with hyperglycemia, with long-term current use of insulin ([facility]) Class 3 severe obesity due [...] Hidradenitis suppurativa of multiple sites Essential hypertension ([facility]/HCC)- Primary Unspecified essential hypertension KARINE (obstructive sleep apnea) Obstructive sleep apnea (adult) (pediatric) Bilateral lower extremity edema Vitamin D deficiency Uncontrolled type 2 diabetes mellitus with hyperglycemia, with long-term current use of insulin ([facility]) Class 3 severe obesity due [...] insulin (CMS/HCC)- Primary documented in this encounter [facility] HealthcareEvaluation note* Diagnosis Essential hypertension (CMS/HCC)- Primary [...] Primary Unspecified essential hypertension BMI 45.0-49.9, adult ([facility]) Uncontrolled type 2 diabetes mellitus with hyperglycemia, with long-term current use of insulin ([facility]) Anxiety and depression ([facility]) Essential hypertension ([facility])- Primary Unspecified essential hypertension Bilateral lower extremity edema Vitamin D deficiency Mixed hyperlipidemia ([facility]) Mixed hyperlipidemia History of rectal polyps Uncontrolled type 2 diabetes mellitus with hyperglycemia, with long-term current use of insulin ([facility]) Anxiety and depression ([facility]) Allergic rhinitis, unspecified seasonality, unspecified trigger Essential hypertension ([facility])- Primary Unspecified essential hypertension Malignant neoplasm of thyroid gland ([facility]) Malignant neoplasm of thyroid gland Pain of left hip Lumbar back pain with radiculopathy affecting left lower extremity Bilateral lower extremity edema Uncontrolled type 2 diabetes mellitus with hyperglycemia, with long-term current use of insulin ([facility]) Class 3 severe obesity due to excess calories with serious comorbidity and body mass index (BMI) of 50.0 to 59.9 in adult Essential hypertension ([facility])- Primary Unspecified essential hypertension KARINE (obstructive sleep apnea) Obstructive sleep apnea (adult) (pediatric) Arthritis of knee, right Bilateral lower extremity edema Class 3 severe obesity due to excess calories with serious comorbidity and body mass index (BMI) of 50.0 to 59.9 in adult Malignant neoplasm of thyroid gland ([facility]) Malignant neoplasm of thyroid gland Papillary thyroid carcinoma ([facility]) Anxiety and depression ([facility]) Hidradenitis suppurativa of multiple sites Essential hypertension ([facility])- Primary Unspecified essential hypertension KARINE (obstructive sleep apnea) Obstructive sleep apnea (adult) (pediatric) Bilateral lower extremity edema Vitamin D deficiency Uncontrolled type 2 diabetes mellitus with hyperglycemia, with long-term current use of insulin ([facility]) Class 3 severe obesity due to excess calories with serious comorbidity and body mass index (BMI) of 50.0 to 59.9 in adult Anxiety and depression ([facility]) Allergic rhinitis, unspecified seasonality, unspecified trigger Encounter for screening mammogram for malignant neoplasm of breast Left foot pain Pain in soft tissues of limb Other chronic pain Anxiety and depression ([facility])- Primary KARINE (obstructive sleep apnea) Obstructive sleep apnea (adult) (pediatric) Essential hypertension ([facility]) Unspecified essential hypertension Bilateral lower extremity edema [...] of insulin [facility]CMS[facility]HCC[facility] of [facility] cancer- Primary Personal history of malignant neoplasm of [facility] History of thyroid cancer- Primary Personal history of malignant neoplasm of thyroid [facility] Diagnosis Essential hypertension- Primary Unspecified essential hypertension BMI 45.0-49.9, adult (CMS-HCC) Uncontrolled type 2 diabetes mellitus with hyperglycemia, [...] (BMI) of 50.0 to 59.9 in adult (CMS-HCC) Essential hypertension- Primary Unspecified essential hypertension KARINE (obstructive sleep apnea) Obstructive sleep apnea (adult) (pediatric) Arthritis of knee, right Bilateral lower extremity edema Class 3 severe obesity due to excess calories with serious comorbidity and body mass index (BMI) of 50.0 to 59.9 in adult (CMS-HCC) Malignant neoplasm of thyroid gland (HCC) Malignant neoplasm of thyroid gland Papillary thyroid carcinoma (HCC) Anxiety and depression Hidradenitis suppurativa of multiple sites Essential hypertension- Primary Unspecified essential hypertension KARINE (obstructive sleep apnea) Obstructive sleep apnea (adult) (pediatric) Bilateral lower extremity edema Vitamin D deficiency Uncontrolled type 2 diabetes mellitus with hyperglycemia, with long-term current use of insulin ([facility]) Class 3 severe obesity due to excess calories with serious comorbidity and body mass index (BMI) of 50.0 to 59.9 in adult ([facility]) Anxiety and depression Allergic rhinitis, unspecified seasonality, [...] (BMI) of 50.0 to 59.9 in adult ([facility]) Papillary thyroid carcinoma (HCC) Uncontrolled type 2 diabetes mellitus with hyperglycemia, with long-term current use of insulin ([facility]) Mixed hyperlipidemia Mixed hyperlipidemia Pap smear for cervical cancer screening Screening for malignant neoplasm of the cervix Chest pain of unknown etiology- Primary Essential hypertension Unspecified essential hypertension KARINE (obstructive sleep apnea) Obstructive sleep apnea (adult) (pediatric) Class 3 severe obesity due to excess calories with serious comorbidity and body mass index (BMI) of 50.0 to 59.9 in adult ([facility]) Uncontrolled type 2 diabetes mellitus with hyperglycemia, with long-term current use of insulin ([facility]) Essential hypertension Unspecified essential hypertension documented in this encounter [facility] HealthcareEvaluation note* Diagnosis Essential hypertension- Primary Unspecified essential hypertension BMI 45.0-49.9, adult ([facility]) Uncontrolled type 2 diabetes mellitus with hyperglycemia, with long-term current use of insulin (HCC) Anxiety and depression Essential hypertension- Primary Unspecified essential hypertension Bilateral lower extremity edema Vitamin D deficiency Mixed hyperlipidemia Mixed hyperlipidemia History of rectal polyps Uncontrolled type 2 diabetes mellitus with hyperglycemia, with long-term current use of insulin ([facility]) Anxiety and depression Allergic rhinitis, [...] (BMI) of 50.0 to 59.9 in adult ([facility]) Essential hypertension- Primary Unspecified essential hypertension KARINE (obstructive sleep apnea) Obstructive sleep apnea (adult) (pediatric) Arthritis of knee, right Bilateral lower extremity edema Class 3 severe obesity due to excess calories with serious comorbidity and body mass index (BMI) of 50.0 to 59.9 in adult ([facility]) Malignant neoplasm of thyroid gland (HCC) Malignant neoplasm of thyroid gland Papillary thyroid carcinoma (HCC) Anxiety and depression Hidradenitis suppurativa of multiple sites Essential hypertension- Primary Unspecified essential hypertension KARINE (obstructive sleep apnea) Obstructive sleep apnea (adult) (pediatric) Bilateral lower extremity edema Vitamin D deficiency Uncontrolled type 2 diabetes mellitus with hyperglycemia, with long-term current use of insulin ([facility]) Class 3 severe obesity due to excess calories with serious comorbidity and body mass index (BMI) of 50.0 to 59.9 in adult ([facility]) Anxiety and depression Allergic rhinitis, [...] (BMI) of 50.0 to 59.9 in adult ([facility]) Papillary thyroid carcinoma (HCC) Uncontrolled [...] (BMI) of 50.0 to 59.9 in adult ([facility]) Uncontrolled type 2 diabetes mellitus with hyperglycemia, with long-term current use of insulin (HCC) Uncontrolled type 2 diabetes mellitus with hyperglycemia, with long-term current use of insulin (HCC) documented in this encounter [facility] HealthcareEvaluation note* Diagnosis Essential hypertension- Primary Unspecified essential hypertension BMI 45.0-49.9, adult ([facility]) Uncontrolled type 2 diabetes mellitus with hyperglycemia, [...] hyperglycemia, with long-term current use of insulin ([facility]) Class 3 severe obesity due to excess calories with serious comorbidity and body mass index (BMI) of 50.0 to 59.9 in adult ([facility]) Essential hypertension- Primary Unspecified essential hypertension KARINE (obstructive sleep apnea) Obstructive sleep apnea (adult) (pediatric) Arthritis of knee, right Bilateral lower extremity edema Class 3 severe obesity due to excess calories with serious comorbidity and body mass index (BMI) of 50.0 to 59.9 in adult ([facility]) Malignant neoplasm of thyroid gland (HCC) Malignant neoplasm of thyroid gland Papillary thyroid carcinoma (HCC) Anxiety and depression Hidradenitis suppurativa of multiple sites Essential hypertension- Primary Unspecified essential hypertension KARINE (obstructive sleep apnea) Obstructive sleep apnea (adult) (pediatric) Bilateral lower extremity edema Vitamin D deficiency Uncontrolled type 2 diabetes mellitus with hyperglycemia, with long-term current use of insulin ([facility]) Class 3 severe obesity due to excess calories with serious comorbidity and body mass index (BMI) of 50.0 to 59.9 in adult ([facility]) Anxiety and depression Allergic rhinitis, unspecified seasonality, [...] (BMI) of 50.0 to 59.9 in adult ([facility]) Papillary thyroid carcinoma (HCC) Uncontrolled type 2 [...] (BMI) of 50.0 to 59.9 in adult ([facility]) Uncontrolled type 2 diabetes mellitus with hyperglycemia, with long-term current use of insulin ([facility]) Essential hypertension Unspecified essential hypertension Bilateral lower extremity edema Uncontrolled type 2 diabetes mellitus with hyperglycemia, with long-term current use of insulin ([facility]) Chronic pain syndrome Anxiety and depression documented in this encounter [facility] HealthcareEvaluation note* Diagnosis Essential hypertension- Primary Unspecified essential hypertension BMI 45.0-49.9, adult ([facility]) Uncontrolled type 2 diabetes mellitus with hyperglycemia, with long-term current use of insulin ([facility]) Anxiety and depression Essential hypertension- Primary Unspecified essential hypertension Bilateral lower extremity edema Vitamin D deficiency Mixed hyperlipidemia Mixed hyperlipidemia History of rectal polyps Uncontrolled type 2 diabetes mellitus with hyperglycemia, with long-term current use of insulin ([facility]) Anxiety and depression Allergic rhinitis, unspecified seasonality, unspecified trigger Essential hypertension- Primary Unspecified essential hypertension Malignant neoplasm of thyroid gland (HCC) Malignant neoplasm of thyroid gland Pain of left hip Lumbar back pain with radiculopathy affecting left lower extremity Bilateral lower extremity edema Uncontrolled type 2 diabetes mellitus with hyperglycemia, with long-term current use of insulin ([facility]) Class 3 severe obesity due to excess calories with serious comorbidity and body mass index (BMI) of 50.0 to 59.9 in adult ([facility]) Essential hypertension- Primary Unspecified essential hypertension KARINE (obstructive sleep apnea) Obstructive sleep apnea (adult) (pediatric) Arthritis of knee, right Bilateral lower extremity edema Class 3 severe obesity due to excess calories with serious comorbidity and body mass index (BMI) of 50.0 to 59.9 in adult ([facility]) Malignant neoplasm of thyroid gland (HCC) Malignant neoplasm of thyroid gland Papillary thyroid carcinoma (HCC) Anxiety and depression Hidradenitis suppurativa of multiple sites Essential hypertension- Primary Unspecified essential hypertension KARINE (obstructive sleep apnea) Obstructive sleep apnea (adult) (pediatric) Bilateral lower extremity edema Vitamin D deficiency Uncontrolled type 2 diabetes mellitus with hyperglycemia, with long-term current use of insulin ([facility]) Class 3 severe obesity due to excess calories with serious comorbidity and body mass index (BMI) of 50.0 to 59.9 in adult ([facility]) Anxiety and depression Allergic rhinitis, unspecified seasonality, [...] (BMI) of 50.0 to 59.9 in adult ([facility]) Papillary thyroid carcinoma (HCC) Uncontrolled type 2 diabetes mellitus with hyperglycemia, with long-term current use of insulin ([facility]) Mixed hyperlipidemia Mixed hyperlipidemia Pap smear for cervical cancer screening Screening for malignant neoplasm of the cervix Chest pain of unknown etiology- Primary Essential hypertension Unspecified essential hypertension KARINE (obstructive sleep apnea) Obstructive sleep apnea (adult) (pediatric) Class 3 severe obesity due to excess calories with serious comorbidity and body mass index (BMI) of 50.0 to 59.9 in adult ([facility]) Uncontrolled type 2 diabetes mellitus with hyperglycemia, with long-term current use of insulin ([facility]) Mixed hyperlipidemia Mixed hyperlipidemia Other chronic pain Allergic rhinitis, unspecified seasonality, unspecified trigger documented in this encounter [facility]* Diagnosis Essential hypertension- Primary Unspecified essential hypertension BMI 45.0-49.9, adult ([facility]) Uncontrolled type 2 diabetes mellitus with hyperglycemia, with long-term current use of insulin ([facility]) Anxiety and depression Essential hypertension- Primary Unspecified essential hypertension Bilateral lower extremity edema Vitamin D deficiency Mixed hyperlipidemia Mixed hyperlipidemia History of rectal polyps Uncontrolled type 2 diabetes mellitus with hyperglycemia, with long-term current use of insulin ([facility]) Anxiety and depression Allergic rhinitis, unspecified seasonality, unspecified trigger Essential hypertension- Primary Unspecified essential hypertension Malignant neoplasm of thyroid gland (HCC) Malignant neoplasm of thyroid gland Pain of left hip Lumbar back pain with radiculopathy affecting left lower extremity Bilateral lower extremity edema Uncontrolled type 2 diabetes mellitus with hyperglycemia, with long-term current use of insulin ([facility]) Class 3 severe obesity due to excess calories with serious comorbidity and body mass index (BMI) of 50.0 to 59.9 in adult ([facility]) Essential hypertension- Primary Unspecified essential hypertension KARINE (obstructive sleep apnea) Obstructive sleep apnea (adult) (pediatric) Arthritis of knee, right Bilateral lower extremity edema Class 3 severe obesity due to excess calories with serious comorbidity and body mass index (BMI) of 50.0 to 59.9 in adult ([facility]) Malignant neoplasm of thyroid gland (HCC) Malignant neoplasm of thyroid gland Papillary thyroid carcinoma (HCC) Anxiety and depression Hidradenitis suppurativa of multiple sites Essential hypertension- Primary Unspecified essential hypertension KARINE (obstructive sleep apnea) Obstructive sleep apnea (adult) (pediatric) Bilateral lower extremity edema Vitamin D deficiency Uncontrolled type 2 diabetes mellitus with hyperglycemia, with long-term current use of insulin ([facility]) Class 3 severe obesity due to excess calories with serious comorbidity and body mass index (BMI) of 50.0 to 59.9 in adult ([facility]) Anxiety and depression Allergic rhinitis, unspecified seasonality, [...] (BMI) of 50.0 to 59.9 in adult ([facility]) Papillary thyroid carcinoma (HCC) Uncontrolled type 2 diabetes mellitus with hyperglycemia, with long-term current use of insulin ([facility]) Mixed hyperlipidemia Mixed hyperlipidemia Pap smear for cervical cancer screening Screening for malignant neoplasm of the cervix Chest pain of unknown etiology- Primary Essential hypertension Unspecified essential hypertension KARINE (obstructive sleep apnea) Obstructive sleep apnea (adult) (pediatric) Class 3 severe obesity due to excess calories with serious comorbidity and body mass index (BMI) of 50.0 to 59.9 in adult ([facility]) Uncontrolled type 2 diabetes mellitus with hyperglycemia, with long-term current use of insulin ([facility]) Abnormal stress test- Primary Other nonspecific abnormal cardiovascular system function study documented in this encounter [facility] HealthcareEvaluation note* Diagnosis Essential hypertension- Primary Unspecified essential hypertension BMI 45.0-49.9, adult ([facility]) Uncontrolled type 2 diabetes mellitus with hyperglycemia, with long-term current use of insulin ([facility]) Anxiety and depression Essential hypertension- Primary Unspecified essential hypertension Bilateral lower extremity edema Vitamin D deficiency Mixed hyperlipidemia Mixed hyperlipidemia History of rectal polyps Uncontrolled type 2 diabetes mellitus with hyperglycemia, with long-term current use of insulin ([facility]) Anxiety and depression Allergic rhinitis, [...] (BMI) of 50.0 to 59.9 in adult ([facility]) Essential hypertension- Primary Unspecified essential hypertension KARINE (obstructive sleep apnea) Obstructive sleep apnea (adult) (pediatric) Arthritis of knee, right Bilateral lower extremity edema Class 3 severe obesity due to excess calories with serious comorbidity and body mass index (BMI) of 50.0 to 59.9 in adult ([facility] [place] Malignant neoplasm of thyroid gland (HCC) Malignant neoplasm of thyroid gland Papillary thyroid carcinoma (HCC) Anxiety and depression Hidradenitis suppurativa of multiple sites Essential hypertension- Primary Unspecified essential hypertension KARINE (obstructive sleep apnea) Obstructive sleep apnea (adult) (pediatric) Bilateral lower extremity edema Vitamin D deficiency Uncontrolled type 2 diabetes mellitus with hyperglycemia, with long-term current use of insulin ([facility]) Class 3 severe obesity due to excess calories with serious comorbidity and body mass index (BMI) of 50.0 to 59.9 in adult ([facility] [place] Anxiety and depression Allergic rhinitis, unspecified seasonality, [...] (BMI) of 50.0 to 59.9 in adult ([facility] [place]) Papillary thyroid carcinoma (HCC) Uncontrolled type 2 diabetes mellitus with hyperglycemia, with long-term current use of insulin ([facility]) Mixed hyperlipidemia Mixed hyperlipidemia Pap smear for cervical cancer screening Screening for malignant neoplasm of the cervix Chest pain of unknown etiology- Primary Essential hypertension Unspecified essential hypertension KARINE (obstructive sleep apnea) Obstructive sleep apnea (adult) (pediatric) Class 3 severe obesity due to excess calories with serious comorbidity and body mass index (BMI) of 50.0 to 59.9 in adult ([facility] [place]) Uncontrolled type 2 diabetes mellitus with hyperglycemia, with long-term current use of insulin (HCC) Hot flashes- Primary documented in this encounter [facility]InstructionsNot on filedocumented in this encounterProGood Samaritan [facility] SystemInstructionsNot on filedocumented in this encounterProGood Samaritan Hospital System Summary Purpose Family History No Family History [...] or prosecute any alcohol or drug abuse patient.[facility] CenterIn the event this information is protected by the Federal Confidentiality of Alcohol and Drug Abuse Patient Records regulations: The Federal rules restrict any use of the information to criminally investigate or prosecute any alcohol or drug abuse patient.[facility] CenterIn the event this information is protected by the Federal Confidentiality of Alcohol and Drug Abuse Patient Records regulations: The Federal rules restrict any use of the information to criminally investigate or prosecute any alcohol or drug abuse patient.[facility] CenterIn the event this information is protected by the Federal Confidentiality of Alcohol and Drug Abuse Patient Records regulations: The Federal rules restrict any use of the information to criminally investigate or prosecute any alcohol or drug abuse patient.[facility] CenterIn the event this information is protected by the Federal Confidentiality of Alcohol and Drug Abuse Patient Records regulations: The Federal rules restrict any use of the information to criminally investigate or prosecute any alcohol or drug abuse patient.[facility] CenterIn the event this information is protected by the Federal Confidentiality of Alcohol and Drug Abuse Patient Records regulations: The Federal rules restrict any use of the information to criminally investigate or prosecute any alcohol or drug abuse patient.[facility] CenterIn the event this information is protected by the Federal Confidentiality of Alcohol and Drug Abuse Patient Records regulations: The Federal rules restrict any use of the information to criminally investigate or prosecute any alcohol or drug abuse patient.[facility] CenterIn the event this information is protected by the Federal Confidentiality of Alcohol and Drug Abuse Patient Records regulations: The Federal rules restrict any use of the information to criminally investigate or prosecute any alcohol or drug abuse patient.[facility] CenterIn the event this information is protected by the Federal Confidentiality of Alcohol and Drug Abuse Patient Records regulations: The Federal rules restrict any use of the information to criminally investigate or prosecute any alcohol or drug abuse patient.[facility] CenterIn the event this information is protected by the Federal Confidentiality of Alcohol and Drug Abuse Patient Records regulations: The Federal rules restrict any use of the information to criminally investigate or prosecute any alcohol or drug abuse patient.[facility] CenterIn the event this information is protected by the Federal Confidentiality of Alcohol and Drug Abuse Patient Records regulations: The Federal rules restrict any use of the information to criminally investigate or prosecute any alcohol or drug abuse patient.[facility] CenterIn the event this information is protected by the Federal Confidentiality of Alcohol and Drug Abuse Patient Records regulations: The Federal rules restrict any use of the information to criminally investigate or prosecute any alcohol or drug abuse patient.[facility] CenterIn the event this information is protected by the Federal Confidentiality of Alcohol and Drug Abuse Patient Records regulations: The Federal rules restrict any use of the information to criminally investigate or prosecute any alcohol or drug abuse patient.[facility] CenterIn the event this information is protected by the Federal Confidentiality of Alcohol and Drug Abuse Patient Records regulations: The Federal rules restrict any use of the information to criminally investigate or prosecute any alcohol or drug abuse patient.[facility] CenterIn the event this information is protected by the Federal Confidentiality of Alcohol and Drug Abuse Patient Records regulations: The Federal rules restrict any use of the information to criminally investigate or prosecute any alcohol or drug abuse patient.[facility] CenterIn the event this information is protected by the Federal Confidentiality of Alcohol and Drug Abuse Patient Records regulations: The Federal rules restrict any use of the information to criminally investigate or prosecute any alcohol or drug abuse patient.[facility] CenterIn the event this information is protected by the Federal Confidentiality of Alcohol and Drug Abuse Patient Records regulations: The Federal rules restrict any use of the information to criminally investigate or prosecute any alcohol or drug abuse patient.[facility] CenterIn the event this information is protected by the Federal Confidentiality of Alcohol and Drug Abuse Patient Records regulations: The Federal rules restrict any use of the information to criminally investigate or prosecute any alcohol or drug abuse patient.[facility] CenterIn the event this information is protected by the Federal Confidentiality of Alcohol and Drug Abuse Patient Records regulations: The Federal rules restrict any use of the information to criminally investigate or prosecute any alcohol or drug abuse patient.[facility] CenterIn the event this information is protected by the Federal Confidentiality of Alcohol and Drug Abuse Patient Records regulations: The Federal rules restrict any use of the information to criminally investigate or prosecute any alcohol or drug abuse patient.[facility] CenterIn the event this information is protected by the Federal Confidentiality of Alcohol and Drug Abuse Patient Records regulations: The Federal rules restrict any use of the information to criminally investigate or prosecute any alcohol or drug abuse patient.[facility] CenterIn the event this information is protected by the Federal Confidentiality of Alcohol and Drug Abuse Patient Records regulations: The Federal rules restrict any use of the information to criminally investigate or prosecute any alcohol or drug abuse patient.[facility] CenterIn the event this information is protected by the Federal Confidentiality of Alcohol and Drug Abuse Patient Records regulations: The Federal rules restrict any use of the information to criminally investigate or prosecute any alcohol or drug abuse patient.[facility] CenterIn the event this information is protected by the Federal Confidentiality of Alcohol and Drug Abuse Patient Records regulations: The Federal rules restrict any use of the information to criminally investigate or prosecute any alcohol or drug abuse patient.[facility] CenterIn the event this information is protected by the Federal Confidentiality of Alcohol and Drug Abuse Patient Records regulations: The Federal rules restrict any use of the information to criminally investigate or prosecute any alcohol or drug abuse patient.[facility] CenterIn the event this information is protected by the Federal Confidentiality of Alcohol and Drug Abuse Patient Records regulations: The Federal rules restrict any use of the information to criminally investigate or prosecute any alcohol or drug abuse patient.[facility] CenterIn the event this information is protected by the Federal Confidentiality of Alcohol and Drug Abuse Patient Records regulations: The Federal rules restrict any use of the information to criminally investigate or prosecute any alcohol or drug abuse patient.[facility] Reason for Visit (unrecogniz ed section and content) Reason Comments Established Patient Specialty Diagnoses / Procedures Referred By Contac t Referred To Contact Radiation Oncology / RADIATION ONCOLOGY Diagnoses Follow-up examination 4 Month Follow UP Procedures PHYS/QHP TELEPHONE EVALUATION 5-10 MIN PROVIDER SPECIALTY PHONE CALL Zion Pringle MD [facility] [place] [address] Zion Pringle MD [address] [place] [address] [place] [address] Referral ID Status Reason Start Date Expiration Date Visits Re quested Visits Authorized [id number] Closed 02/15/2024 06/05/2024 1 1 Reason Comments Follow Up Specialty Diagnoses / Procedures Referred By Contac t Referred To Contact Radiation Oncology / RADIATION ONCOLOGY Diagnoses phone visit after labs [phone] labs drawn at [facility] Procedures PROVIDER SPECIALTY PHONE CALL Zion Pringle MD [facility] [place] [address] Zion Pringle MD [address] [place] [address] [place] [address] Referral ID Status Reason Start Date Expiration Date V isits Requested Visits Authorized [id number] Pending Review 09/29/2021 12/28/2021 99 99 Reason [...] Care Teams (unrecognized sec tion and content) Manufacturing Executive Relationship Specialty Start Date End Date Katalina Colbert CNP PCP - General Family Practice 11/26/14 Zion Pringle MD [address] [place] [address] [place] [address] Radiation Oncology 05/28/20 Manufacturing Executive Relationship Specialty Start Date End Date Katalina Colbert CNP PCP - General Family Medicine 11/26/14 Zion Pringle MD [address] [place] [address] [place] [address] Radiation Oncology 05/28/20 Manufacturing Executive Relationship Specialty Start Date End Date Katalina Colbert CNP PCP - General Family Medicine 11/26/14 Zion Pringle MD [address] [place] [address] [place] [address] Radiation Oncology 05/28/20 Manufacturing Executive Relationship Specialty Start Date End Date Katalina Colbert CNP PCP - General Family Medicine 11/26/14 Zion Pringle MD [address] [facility] [place] [address] Radiation Oncology 05/28/20 Manufacturing Executive Relationship Specialty Start Date End Date Katalina Colbert [facility] PCP - General Family Medicine 11/26/14 Zion Pringle MD [address] [facility] [place] [address] Radiation Oncology 05/28/20 Manufacturing Executive Relationship Specialty Start Date End Date [facility] PCP - General Family Medicine 11/26/14 Zion Pringle MD [address] [facility] [place] [address] Radiation Oncology 05/28/20 Manufacturing Executive Relationship Specialty Start Date End Date [facility] PCP - General Family Medicine 11/26/14 Zion Pringle MD [address] [facility] [place] [address] Radiation Oncology 05/28/20 Manufacturing Executive Relationship Specialty Start Date End Date Katalina Colbert CNP PCP - General Family Medicine 11/26/14 Zion Pringle MD [address] [place] [address] [place] [address] Radiation Oncology 05/28/20 Manufacturing Executive Relationship Specialty Start Date End Date Katalina Colbert CNP PCP - General Family Medicine 11/26/14 Zion Pringle MD [address] [facility] [place] [address] Radiation Oncology 05/28/20 Manufacturing Executive Relationship Specialty Start Date End Date Katalina Colbert SMART ENERGY SPECIALIST PCP - General Family Medicine 11/26/14 Zion Pringle MD [address] [facility] [place] [address] Radiation Oncology 05/28/20 Manufacturing Executive Relationship Specialty Start Date End Date Kervin Gunter MD [address] [place] [address] PCP - General Family Medicine 06/01/23 Katalina Colbert, NETTIE [address] [place] [address] Nurse Practitioner Family Medicine 03/06/23 Manufacturing Executive Relationship Specialty Start Date End Date Katalina Colbert SMART ENERGY SPECIALIST PCP - General Family Medicine 11/26/14 Zion Pringle MD [address] [facility] [place] [address] Radiation Oncology 05/28/20 Manufacturing Executive Relationship Specialty Start Date End Date Kervin Gunter MD [address] [place] [address] PCP - General Family Medicine 06/01/23 Katalina Colbert NP [address] [place] [address] Nurse Practitioner Family Medicine 03/06/23 Manufacturing Executive Relationship Specialty Start Date End Date Kervin Gunter MD [address] [place] [address] PCP - General Family Medicine 06/01/23 Katalina Colbert NP [address] [place] [address] Nurse Practitioner Family Medicine 03/06/23 Manufacturing Executive Relationship Specialty Start Date End Date Kervin Gunter MD [address] [place] [address] PCP - General Family Medicine 06/01/23 Katalina Colbert NP [address] [place] [address] Nurse Practitioner Family Medicine 03/06/23 Manufacturing Executive Relationship Specialty Start Date End Date Katalina Colbert CNP PCP - General Family Medicine 11/26/14 Zion Pringle MD [address] [place] [address] [place] [address] Radiation Oncology 05/28/20 Manufacturing Executive Relationship Specialty Start Date End Date Katalina Colbert CNP PCP - General Family Medicine 11/26/14 Zion Pringle MD [address] [place] [address] [place] [address] Radiation Oncology 05/28/20 Manufacturing Executive Relationship Specialty Start Date End Date Kervin Gunter MD [address] [place] [address] PCP - General Family Medicine 06/01/23 Katalina Colbert NP [address] [place] [address] Nurse Practitioner Family Medicine 03/06/23 Manufacturing Executive Relationship Specialty Start Date End Date Kervin Gunter MD [address] [place] [address] PCP - General Family Medicine 06/01/23 Katalina Colbert NP [address] [place] [address] Nurse Practitioner Family Medicine 03/06/23 Manufacturing Executive Relationship Specialty Start Date End Date Kervin Gunter MD [address] [place] [address] PCP - General Family Medicine 06/01/23 Katalina Colbert NP [address] [place] [address] Nurse Practitioner Family Medicine 03/06/23 Manufacturing Executive Relationship Specialty Start Date End Date Kervin Gunter MD [address] [place] [address] PCP - General Family Medicine 06/01/23 Katalina Colbert NP [address] [place] [address] Nurse Practitioner Family Medicine 03/06/23 Manufacturing Executive Relationship Specialty Start Date End Date Kervin Gunter MD [address] [place] [address] PCP - General Family Medicine 06/01/23 Katalina Colbert NP [address] [place] [address] Nurse Practitioner Family Medicine 03/06/23 Manufacturing Executive Relationship Specialty Start Date End Date Kervin Gunter MD [address] [place] [address] PCP - General Family Medicine 06/01/23 Katalina Colbert NP [address] [place] [address] Nurse Practitioner Family Medicine 03/06/23 Manufacturing Executive Relationship Specialty Start Date End Date Kervin Gunter MD [address] [place] [address] PCP - General Family Medicine 06/01/23 Katalina Colbert NP [address] [place] [address] Nurse Practitioner Family Medicine 03/06/23 Manufacturing Executive Relationship Specialty Start Date End Date Kervin Gunter MD [address] [place] [address] PCP - General Family Medicine 06/01/23 Katalina Colbert NP [address] [place] [address] Nurse Practitioner Family Medicine 03/06/23 Manufacturing Executive Relationship Specialty Start Date End Date Kervin Gunter MD [address] [place] [address] PCP - General Family Medicine 06/01/23 Katalina Colbert NP [address] [place] [address] Nurse Practitioner Family Medicine 03/06/23 Manufacturing Executive Relationship Specialty Start Date End Date Kervin Gunter MD [address] [place] [address] PCP - General Family Medicine 06/01/23 Katalina Colbert NP [address] [place] [address] Nurse Practitioner Family Medicine 03/06/23 Manufacturing Executive Relationship Specialty Start Date End Date Kervin Gunter MD [address] [place] [address] PCP - General Family Medicine 06/01/23 Katalina Colbert NP [address] [place] [address] Nurse Practitioner Family Medicine 03/06/23 Manufacturing Executive Relationship Specialty Start Date End Date Katalina Colbert CNP PCP - General Family Medicine 11/26/14 Zion Pringle MD Radiation Oncology 05/28/20 Manufacturing Executive Relationship Specialty Start Date End Date Kervin Gunter MD [address] [place] [address] PCP - General Family Medicine 06/01/23 Katalina Colbert, NETTIE [address] [place] [address] Nurse Practitioner Family Medicine 03/06/23 Manufacturing Executive Relationship Specialty Start Date End Date Kervin Gunter MD [address] [place] [address] PCP - General Family Medicine 06/01/23 Katalina Colbert, TRACTOR TRAILER [employer] [address] [place] [address] Nurse Practitioner Family Medicine 03/06/23 Manufacturing Executive Relationship Specialty Start Date End Date Kervin Gunter MD [address] [place] [address] PCP - General 08/11/17 Manufacturing Executive Relationship Specialty Start Date End Date Kervin Gunter MD [address] [place] [address] PCP - General 08/11/17 Manufacturing Executive Relationship Specialty Start Date End Date Katalina Colbert SMART ENERGY SPECIALIST PCP - General Family Medicine 11/26/14 Zion Pringle MD [address] [place] [address] [place] [address] Radiation Oncology 05/28/20 Manufacturing Executive Relationship Specialty Start Date End Date Kervin Gunter MD [address] [place] [address] PCP - General Family Medicine 06/01/23 Katalina Colbert NP [address] [place] [address] Nurse Practitioner Family Medicine 03/06/23 Manufacturing Executive Relationship Specialty Start Date End Date Kervin Gunter MD [address] [place] [address] PCP - General Family Medicine 06/01/23 Katalina Colbert NP [address] [place] [address] Nurse Practitioner Family Medicine 03/06/23 Manufacturing Executive Relationship Specialty Start Date End Date Kervin Gunter MD [address] [place] [address] PCP - General Family Medicine 06/01/23 Katalnia Colbert NP [address] [place] [address] Nurse Practitioner Family Medicine 03/06/23 Manufacturing Executive Relationship Specialty Start Date End Date Kervin Gunter MD [address] [place] [address] PCP - General Family Medicine 06/01/23 Katalina Colbert NP [address] [place] [address] Nurse Practitioner Family Medicine 03/06/23 Manufacturing Executive Relationship Specialty Start Date End Date Kervin Gunter MD [address] [place] [address] PCP - General Family Medicine 06/01/23 Katalina Colbert NP [address] [place] [address] Nurse Practitioner Family Medicine 03/06/23 Manufacturing Executive Relationship Specialty Start Date End Date Kervin Gunter MD [address] [place] [address] PCP - General Family Medicine 06/01/23 Katalina Colbert NP [address] [place] [address] Nurse Practitioner Family Medicine 03/06/23 Manufacturing Executive Relationship Specialty Start Date End Date Kervin Gunter MD [address] [place] [address] PCP - General Family Medicine 06/01/23 Katalina Colbert NP [address] [place] [address] Nurse Practitioner Family Medicine 03/06/23 Manufacturing Executive Relationship Specialty Start Date End Date Kervin Gunter MD [address] [place] [address] PCP - General Family Medicine 06/01/23 Katalina Colbert, NETTIE [address] [place] [address] Nurse Practitioner Family Medicine 03/06/23 Manufacturing Executive Relationship Specialty Start Date End Date Katalina Colbert CNP PCP - General Family Medicine 11/26/14 Zion Pringle MD [address] [place] [address] [place] [address] Radiation Oncology 05/28/20 Manufacturing Executive Relationship Specialty Start Date End Date Kervin Gunter MD [address] [place] [address] PCP - General Family Medicine 06/01/23 Katalina Colbert NP [address] [place] [address] Nurse Practitioner Family Medicine 03/06/23 Manufacturing Executive Relationship Specialty Start Date End Date Kervin Gunter MD [address] [place] [address] PCP - General Family Medicine 06/01/23 Katalina Colbert NP [address] [place] [address] Nurse Practitioner Family Medicine 03/06/23 Manufacturing Executive Relationship Specialty Start Date End Date Kervin Gunter MD [address] [place] [address] PCP - General Family Medicine 06/01/23 Katalina Colbert NP [address] [place] [address] Nurse Practitioner Family Medicine 03/06/23 Manufacturing Executive Relationship Specialty Start Date End Date Kervin Gunter MD [address] [place] [address] PCP - General Family Medicine 06/01/23 Katalina Colbert NP [address] [place] [address] Nurse Practitioner Family Medicine 03/06/23 Manufacturing Executive Relationship Specialty Start Date End Date Kervin Gunter MD [address] [place] [address] PCP - General Family Medicine 06/01/23 Katalina Colbert NP [address] [place] [address] Nurse Practitioner Family Medicine 03/06/23 Manufacturing Executive Relationship Specialty Start Date End Date Kervin Gunter MD [address] [place] [address] PCP - General Family Medicine 06/01/23 Katalina Colbert NP [address] [place] [address] Nurse Practitioner Family Medicine 03/06/23 Manufacturing Executive Relationship Specialty Start Date End Date Kervin Gunter MD [address] [place] [address] PCP - General Family Medicine 06/01/23 Katalina Colbert NP [address] [place] [address] Nurse Practitioner Family Medicine 03/06/23 Manufacturing Executive Relationship Specialty Start Date End Date Kervin Gunter MD [address] [place] [address] PCP - General Family Medicine 06/01/23 Katalina Colbert NP [address] [place] [address] Nurse Practitioner Family Medicine 03/06/23 Manufacturing Executive Relationship Specialty Start Date End Date Kervin Gunter MD [address] [place] [address] PCP - General Family Medicine 06/01/23 Katalina Colbert NP [address] [place] [address] Nurse [facility] 03/06/23 INFORMATION SOURCE (unrecogn ized section and content) DATE CREATED AUTHOR 10/17/2022 [facility] DATE CREATED AUTHOR AUTHOR'S ORGANIZ ATION 09/14/2023 [facility] DATE CREATED AUTHOR AUTHOR'S ORGANIZ ATION 10/01/2023 [facility] DATE CREATED AUTHOR AUTHOR'S ORGANIZ ATION 12/01/2024 [facility] DATE CREATED AUTHOR AUTHOR'S ORGANIZ ATION 01/28/2025 [facility] DATE CREATED AUTHOR AUTHOR'S ORGANIZ ATION 02/11/2025 [facility] FOR RECORDS PERTAINING TO PATIENTS [...] BE BASED ON THE PRIMARY CLINICAL RECORDS. [employer] provides no warranty or guarantee of the accuracy or completeness of information in this document.
[2025-02-19 10:24] LABS: Hematocrit 38.5 % (36.0-48.0); Hemoglobin 13.1 g/dL (12.0-16.0); Immature Granulocytes Abs Auto 0.02 10^3/uL (0.00-0.03); Immature Granulocytes Pct Auto 0.4 % (0.0-0.5); Lymphocytes Absolute Auto 1.6 10^3/uL (1.2-3.8); Mean Corpuscular HGB Conc 34.0 g/dL (29.9-35.2); Mean Corpuscular Hemoglobin 28.7 pg (26.7-34.0); Mean Corpuscular Volume 84.2 fL (81.0-99.0); Platelet Count 166 10^3/uL (150-450); Red Blood Count 4.57 10^6/uL (4.20-5.40); White Blood Count 5.5 10^3/uL (4.0-11.0)
[2025-02-19 11:09] LABS: Anion Gap 14.2; Blood Urea Nitrogen 18.0 mg/dL (7.0-18.0); Calcium 9.6 mg/dL (8.5-10.1); Carbon Dioxide 27.5 mmol/L (21.0-32.0); Chloride 102 mmol/L (98-107); Estimated GFR (African America >60 (>=60 mL/min/1.73m^2); Estimated GFR (Non-African Ame 51 (>=60 mL/min/1.73m^2); Glucose 129 mg/dL (74-106); Potassium 3.7 mmol/L (3.5-5.1); Sodium 140 mmol/L (136-145)
== END 2025-02-19 09:50 | disposition home or self-care (01) ==
LOC: LAB 09:49
PROVIDERS: PCP Nurse Practitioner; Visit Provider Internal Medicine Interventional Cardiology
DX: R07.89 Other chest pain (principal); R94.39 Abnormal result of other cardiovascular function study; R06.02 Shortness of breath
CPT/HCPCS: 36415; 80048; 85025